=== PATIENT | male | born 1965 | race African-American/Black ===

== ENCOUNTER 2017-06-01 08:56 | Inpatient (IN) | payer MEDICAID ==
--- NOTE | 2017-06-01 09:40 | ED ---
Lower Extremity - HPI Summary HPI Summary: 51-year-old male presents with left leg swelling and redness for the past day. He has history of a cyst on his but that has been on three course of antibiotics which has not helped. No one has attempted to drain the abscess. Caregiver denies any fevers. His most recent antibiotic is doxycycline which stopped on may 27. He was seen in his primary today who noticed that his left leg which has some edema to the baseline was much harder and warm. Primary is concerned that he has a cellulitis. Has history of traumatic brain injury and difficulty finding words at baseline. Caregiver notes that he is much weaker today. He denies any chest pain or shortness of breath. He states his pain is greatest on the cyst on the left side of his buttock. - History of Current Complaint Chief Complaint: EDGeneral Stated Complaint: SWOLLEN LEG Time Seen by Provider: 06/01/17 09:16 Pain Intensity: 0 - Allergies/Home Medications Allergies/Adverse Reactions: Allergies Allergy/AdvReac Type Severity Reaction Status Date / Time Penicillins Allergy Severe Hives Verified 06/01/17 10:35 Carbapenems Allergy Intermediate Unknown Verified 06/01/17 10:35 Reaction Details Cephalosporins Allergy Intermediate Unknown Verified 06/01/17 10:35 Reaction Details latex Allergy Intermediate Unknown Verified 06/01/17 10:35 Reaction Details Home Medications: Home Medications Acetaminophen TAB* [Tylenol TAB*] 650 mg PO Q4H PRN 06/01/17 [History Confirmed 06/01/17] Docusate CAP* [Colace Cap*] 250 - 300 mg PO BEDTIME 06/01/17 [History Confirmed 06/01/17] Gabapentin CAP(*) [Neurontin 300 CAP(*)] 600 mg PO QPM 06/01/17 [History Confirmed 06/01/17] Hydrochlorothiazide TAB* [Hydrodiuril TAB*] 25 mg PO QAM 06/01/17 [History Confirmed 06/01/17] Latanoprost 0.005%* [Xalatan 0.005%*] 1 drop BOTH EYES QPM 06/01/17 [History Confirmed 06/01/17] Magnesium Hydroxide LIQ* [Milk of Magnesia LIQ*] 30 ml PO DAILY PRN 06/01/17 [ History Confirmed 06/01/17] Neomycin/Polym/Bacit TOP OINT* [Neosporin TOP OINT TUBE*] 1 applic TOPICAL .THREE TIMES A WEEK PRN 06/01/17 [History Confirmed 06/01/17] Nitrofurantoin Macrocrystals* [Macrodantin*] 100 mg PO DAILY 06/01/17 [History Confirmed 06/01/17] Nortriptyline CAP* [Pamelor CAP*] 20 mg PO BEDTIME 06/01/17 [History Confirmed 06/01/17] Omeprazole CAP* [Prilosec CAP* 20 MG] 20 mg PO DAILY 06/01/17 [History Confirmed 06/01/17] Topiramate TAB(*) [Topamax 100 mg tab] 100 mg PO BEDTIME 06/01/17 [History Confirmed 06/01/17] Topiramate TAB(*) [Topamax 25 MG tab] 50 mg PO QAM 06/01/17 [History Confirmed 06/01/17] guaiFENesin/CODIEN 100MG-10MG* [Robitussin AC 100Mg-10Mg*] 10 ml PO Q4H PRN [History Confirmed 06/01/17] PMH/Surg Hx/FS Hx/Imm Hx Endocrine/Hematology History: Denies: Hx Diabetes Cardiovascular History: Reports: Hx Hypercholesterolemia, Hx Hypertension - ON DAILY MEDS Denies: Hx Pacemaker/ICD Comment Only: Other Cardiovascular Problems/Disorders - RIGHT SIDE ARM PARALIZED, RT LEG REMOVED GI History: Reports: Other GI Disorders - chronic constipation History: Denies: Hx Renal Disease Musculoskeletal History: Reports: Other Musculoskeletal History - right above knee amputation Sensory History: Reports: Hx Contacts or Glasses, Hx Hearing Aid - GLASSES Opthamlomology History: Reports: Hx Contacts or Glasses Neurological History: Reports: Hx Seizures - SINCE 2008, ON DAILY MEDS, Hx Transient Ischemic Attacks (TIA) - this admission, Other Neuro Impairments/ Disorders - CVA 5 years ago Psychiatric History: Denies: Hx Panic Disorder - Surgical History Surgery Procedure, Year, and Place: R leg amputation 2008prior to that R foot partial amputation/ 2004 [facility]. 2009 IVC FILTER.PT STARTED CRYING, REALLY AGITATED AND THEN CATATONIC-WE CALLED [facility] TO EVALUATE AND SENT BACK TO FLOOR. QWEENS Hx Anesthesia Reactions: No Infectious Disease History: No Infectious Disease History: Denies: Traveled Outside the [place] in Last 30 Days - Family History Known Family History: Positive: Unknown - Social History Alcohol Use: None Substance Use Type: Reports: None Smoking Status (MU): Former Smoker Type: Cigarettes Amount Used/How Often: LESS THEN 1 PPD 25 YRS Have You Smoked in the Last Year: No Review of Systems Negative: Fever Negative: Chest Pain Negative: Shortness Of Breath Positive: Edema - left leg Positive: Rash All Other Systems Reviewed And Are Negative: Yes Physical Exam Triage Information Reviewed: Yes Vital Signs On Initial Exam: Initial Vitals Temp Pulse Resp BP Pulse Ox 97.0 F 68 18 113/72 99 06/01/17 08:59 06/01/17 08:59 06/01/17 08:59 06/01/17 08:59 06/01/17 08:59 Vital Signs Reviewed: Yes Appearance: Positive: Well-Appearing Skin: Positive: Warm, Dry Head/Face: Positive: Normal Head/Face Inspection Eyes: Positive: Normal, Conjunctiva Clear Respiratory/Lung Sounds: Positive: Clear to Auscultation, Breath Sounds Present Cardiovascular: Positive: Normal, RRR Abdomen Description: Positive: Nontender, Soft, Other: - locaulated abscess on tailbone Bowel Sounds: Positive: Present Musculoskeletal: Positive: Edema Left - hard to touch, Other - warm and tender to left lower leg, Neurological: Positive: Normal Diagnostics - Vital Signs Vital Signs Temp Pulse Resp BP Pulse Ox 06/01/17 08:59 97.0 F 68 18 113/72 99 - Laboratory Result Diagrams: 06/01/17 09:53 06/01/17 09:53 Lab Statement: Any lab studies that have been ordered have been reviewed, and results considered in the medical decision making process. - CT abd CT Interpretation: Positive (See Comments) - IMPRESSION: 1. Extending caudal and posterior from the RIGHT ischial tuberosity to the skin there is a narrow tract of increased density/soft tissue edema within the subcutaneous tissue plane . No loculated abscess collection, subcutaneous emphysema, or conspicuous foreign body evident. No suspicious osseous change at the RIGHT greater tuberosity to strongly favor osteomyelitis. 2. The visualized LEFT thigh is larger than the RIGHT. Increased size of the LEFT external iliac, common femoral , great saphenous, and femoral vein proximal segment veins compared with the contralateral side. LEFT lower extremity ultrasound of the same date negative for DVT. CT Interpretation Completed By: Radiologist - Ultrasound No standard instances Ultrasound Interpretation: No Acute Changes Ultrasound Interpretation Completed By: Radiologist Lower Extremity Course/Dx - Course Course Of Treatment: 51-year-old male presents with left leg swelling and redness for the past day. He has history of a cyst on his but that has been on three course of antibiotics which has not helped. No one has attempted to drain the abscess. Caregiver denies any fevers. His most recent antibiotic is doxycycline which stopped on may 27. He was seen in his primary today who noticed that his left leg which has some edema to the baseline was much harder) and warm. Primary is concerned that he has a cellulitis. Has history of traumatic brain injury and difficulty finding words at baseline. Caregiver notes that he is much weaker today. He denies any chest pain or shortness of breath. He states his pain is greatest on the cyst on the left side of his buttock. on exam has edema that is hard and warm to touch on left calf with wheeping wounds. has induration to right tuberosity. will get CT due to see extend of abscess on tailbone. wbc normal. u/s no dvt. crp 6. bnp normal. as vitals and labs stable and has not been on antibiotics in 5 days will have start clindamycin for cellulitis. gave first dose IV here. CT shows narrow tract from ischial tuberosity to skin with no abscess. discussed case with dr vernon who examined patient and said get MR to make sure not osteomyelitis and blood pressure is low so said discuss with hospiatalists. signed out to emma for disposition after hospitalist consult and MRI. - Diagnoses Differential Diagnosis/HQI/PQRI: Positive: Cellulitis, DVT, Other - abscess Provider Diagnoses: Cellulitis of left lower leg, edema of right buttock Discharge - Sign-Out/Discharge Documenting (check all that apply): Sign-Out Patient Signing out patient TO: Emma Merritt - Discharge Plan Referrals: Bobo Hathaway MD [Primary Care Provider] -
[2017-06-01] MEDS ORDERED: Clindamycin 600 MG IVPREMIX(* 600 MG/50 ML SDV IV ONE (09:46)
[2017-06-01 10:20] LABS: ABS Basophils 0.1 10^3/ul (0-0.2); ABS Eosinophils 0.2 10^3/ul (0-0.6); ABS Lymphocytes 2.3 10^3/ul (1.0-4.8); ABS Monocytes 0.4 10^3/ul (0-0.8); ABS Neutrophils 3.5 10^3/ul (1.5-7.7); ABS Nucleated RBC 0 10^3/ul; Eosinophil % 3.1 % (0-6); Hematocrit 41 % (42-52); Hemoglobin 13.6 g/dl (14.0-18.0); Lymphocyte % 35.8 % (25-47); Mean Corpuscular HGB Conc 33 g/dl (31-36); Mean Corpuscular Hemoglobin 29 pg (27-31); Mean Corpuscular Volume 86 fL (80-94); Mean Platelet Volume 8 um3 (7.4-10.4); Nucleated Red Blood Cells % 0.1; Platelet Count 329 10^3/ul (150-450); Red Blood Count 4.73 10^6/ul (4.0-5.4); Red Cell Distribution Width 15 % (10.5-15); White Blood Count 6.6 10^3/ul (3.5-10.8)
--- NOTE | 2017-06-01 10:27 | RAD ---
INDICATION: Left leg swelling. COMPARISON: There are no prior studies available for comparison. TECHNIQUE: Multiple real-time, color flow and Doppler tracings of the left lower extremity were obtained. The examination is limited. The proximal thigh veins are difficult to see on grayscale imaging. FINDINGS: The common femoral, femoral, profunda femoral and popliteal veins all demonstrate normal augmentation with compression and phasic response with respiration. The posterior tibial and peroneal veins demonstrate normal compressibility and augmentation with compression. IMPRESSION: LIMITED STUDY, NO EVIDENCE FOR DEEP VENOUS THROMBOSIS.
[2017-06-01 10:35] LABS: Urine Appearance Clear; Urine Blood Negative (Negative); Urine Color Yellow; Urine Ketones Negative (Negative); Urine Protein Negative (Negative); Urine Specific Gravity 1.019 (1.010-1.030); Urine Urobilinogen Positive (Negative)
[2017-06-01 10:38] LABS: EGFR Non-African American 64.6 (>60)
[2017-06-01] MEDS ORDERED: Iohexol 300* (CONTRAST) 10 ML SDV IV ONE (10:48)
[2017-06-01] MEDS: NS 0.9% 1000 ML* 2,000 ML IV ONE ×2 (10:58→13:27)
--- NOTE | 2017-06-01 12:06 | RAD ---
Indication: Tailbone abscess. Cyst on buttocks. LEFT lower extremity swelling and warm to touch. Comparison: LEFT lower extremity venous ultrasound of the same date. May 03, 2012 CT. Technique: CT pelvis and proximal femurs with 100 mL Omnipaque 300 IV contrast. Multiplanar reformation. Report: Extending caudal and posterior from the RIGHT ischial tuberosity to the skin there is a narrow tract of increased density/soft tissue edema within the subcutaneous tissue plane . No loculated abscess collection, subcutaneous emphysema, or conspicuous foreign body evident. No suspicious osseous change at the RIGHT greater tuberosity to strongly favor osteomyelitis. No additional soft tissue inflammatory change evident. No suspicious finding of the visualized pelvic viscera. Mild diverticulosis at the descending and proximal sigmoid colon without findings of diverticulitis. Negative for ascites or free air within the [id number]. Negative for significant hernias. Negative for distal ureteral dilatation. Unremarkable partially distended urinary bladder. Negative for lymphadenopathy within the [id number]. The visualized LEFT thigh is larger than the RIGHT. Increased size of the LEFT external iliac, common femoral, great saphenous, and femoral proximal segment veins compared with the contralateral side. Chronic 2.9 cm transverse maximum dimension pedunculated benign morphology osteochondroma projects RIGHT posterior lateral from the RIGHT iliac wing without change compared with a CT from May 03, 2012 without concern. No suspicious focal osseous lesions or fracture. 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 IMPRESSION: 1. Extending caudal and posterior from the RIGHT ischial tuberosity to the skin there is a narrow tract of increased density/soft tissue edema within the subcutaneous tissue plane . No loculated abscess collection, subcutaneous emphysema, or conspicuous foreign body evident. No suspicious osseous change at the RIGHT greater tuberosity to strongly favor osteomyelitis. 2. The visualized LEFT thigh is larger than the RIGHT. Increased size of the LEFT external iliac, common femoral, great saphenous, and femoral vein proximal segment veins compared with the contralateral side. LEFT lower extremity ultrasound of the same date negative for DVT.
[2017-06-01] MEDS ORDERED: Magnesium Hydroxide LIQ* 30 ML UDC PO PRN ×2 (13:30→13:33)
[2017-06-01] MEDS ORDERED: Ondansetron INJ* 2 MG/ML VIAL IV PRN (13:30)
[2017-06-01] MEDS ORDERED: Acetaminophen TAB* 325 MG PO PRN (13:30)
[2017-06-01] MEDS ORDERED: guaiFENesin/CODIEN 100MG-10MG* 5 ML UDC PO PRN (13:33)
[2017-06-01] MEDS ORDERED: KCL 20 MEQ/100 ML IVPREMIX* 20 MEQ/100 ML BAG IV SCH (14:00)
[2017-06-01] MEDS ORDERED: Potassium Chloride IV* 40 MEQ in NS 0.9% 250 ML* 250 ML IVPB ONE (14:30)
--- NOTE | 2017-06-01 15:30 | ED ---
Progress - Progress Note Progress Note: Condition: stable Dispo: admit Course/Dx - Course Course Of Treatment: 51-year-old male presents with left leg swelling and redness for the past day. He has history of a cyst on his but that has been on three course of antibiotics which has not helped. No one has attempted to drain the abscess. Caregiver denies any fevers. His most recent antibiotic is doxycycline which stopped on may 27. He was seen in his primary today who noticed that his left leg which has some edema to the baseline was much harder) and warm. Primary is concerned that he has a cellulitis. Has history of traumatic brain injury and difficulty finding words at baseline. Caregiver notes that he is much weaker today. He denies any chest pain or shortness of breath. He states his pain is greatest on the cyst on the left side of his buttock. on exam has edema that is hard and warm to touch on left calf with wheeping wounds. has induration to right tuberosity. will get CT due to see extend of abscess on tailbone. wbc normal. u/s no dvt. crp 6. bnp normal. as vitals and labs stable and has not been on antibiotics in 5 days will have start clindamycin for cellulitis. gave first dose IV here. CT shows narrow tract from ischial tuberosity to skin with no abscess. discussed case with dr vernon who examined patient and said get MR to make sure not osteomyelitis and blood pressure is low so said discuss with hospiatalists. signed out to paulina for disposition after hospitalist consult and MRI. - Diagnoses Provider Diagnoses: Cellulitis of left lower leg, edema of right buttock Discharge - Sign-Out/Discharge Documenting (check all that apply): Receiving Sign-Out Receiving patient FROM: Angelica Smith - Discharge Plan Condition: Stable Disposition: ADMITTED TO [facility] - Billing Disposition and Condition Condition: STABLE Disposition: [facility] [place]
[2017-06-01] MEDS: Gabapentin CAP(*) 300 MG PO SCH (18:33)
[2017-06-01] MEDS: oxyCODONE/Acetamin 5/325 MG* TAB PO PRN ×2 (18:33→22:25)
[2017-06-01] MEDS: Latanoprost 0.005%* 2.5 ml BTL BOTH EYES SCH (18:37)
--- NOTE | 2017-06-01 20:47 | RAD ---
HISTORY: Tailbone abscess, rule out osteomyelitis COMPARISONS: CT of the pelvis dated June 01, 2017 TECHNIQUE: The following sequences were obtained of the pelvis: Coronal T1-weighted images, coronal T2-weighted images show saturation, coronal STIR images, axial T1-weighted images, axial T2-weighted images with fat saturation, axial STIR images. FINDINGS: Evaluation is limited by the lack of intravenous contrast BONES: There is elevated T2/STIR signal within the distal coccyx. Again noted is a small osteochondroma of the right iliac wing. The bones are otherwise normal signal intensity. SOFT TISSUES: There is elevated T2/STIR signal of the soft tissues superficial to the distal coccyx, without appreciable loculated fluid collection. This extends into the gluteus musculature bilaterally. PELVIC ORGANS: Grossly normal for technique. IMPRESSION: IN THE AREA OF INFLAMMATORY CHANGE ALONG THE COCCYX NOTED ON THE PREVIOUS CT EXAMINATION, THERE IS EDEMA WITHIN THE DISTAL COCCYX AND THE ADJACENT SOFT TISSUES. THERE IS NO APPRECIABLE LOCULATED FLUID COLLECTION TO SUGGEST ABSCESS. GIVEN THE CLINICAL HISTORY, THE PRESENCE OF BONE AND SOFT TISSUE EDEMA SUGGESTS OSTEOMYELITIS WITH ASSOCIATED SOFT TISSUE CELLULITIS
[2017-06-01] MEDS ORDERED: Metoprolol Tartrate TAB* 25 MG PO SCH (21:00)
[2017-06-01] MEDS: Citalopram TAB* 20 MG PO SCH (21:41)
[2017-06-01] MEDS: Metoprolol Tartrate TAB* 25 MG PO SCH (21:41)
[2017-06-01] MEDS: Docusate CAP* 100 MG PO SCH (21:41)
[2017-06-01] MEDS: Baclofen TAB* 10 MG PO SCH (21:42)
[2017-06-01] MEDS: Topiramate TAB(*) 100 MG PO SCH (21:42)
[2017-06-01] MEDS: Senna TAB PO SCH (21:42)
[2017-06-01] MEDS: Nortriptyline CAP* 10 MG PO SCH (21:43)
--- NOTE | 2017-06-02 01:08 | HP ---
CC: Dr. Hathaway; Dr. Hollis in [facility] [place] * HISTORY AND PHYSICAL: DATE OF ADMISSION: 06/01/17 PRIMARY CARE PROVIDER: Dr. Hathaway. CHIEF COMPLAINT: Right buttock cellulitis. HISTORY OF PRESENT ILLNESS: Al Cali is a 51-year-old male with history of traumatic brain injury who is basically nonverbal apart from minimal communication. The patient attends traumatic brain injury services in [place] and has a clinical services consultant as well as aide who takes care of him 40 hours a week. He also goes to daily adult care in the morning until 2 p.m. He stays alone at night. He uses a wheelchair and motorized wheelchair and he transfers independently. For the past month, he has been taking 3 antibiotics for right buttock abscess/cellulitis. I noted 2/3 of these antibiotics were clindamycin and most recently doxycycline that he took for 10 days. He stops taking it 4 days ago and he went to a nurse practitioner for reevaluation. At that point, he was directed to the ED for evaluation. The patient had been afebrile. Once his blood pressures in the 70s, but I believe it was not valid BP measurement. Apparently, his left leg had been swollen for a while, but has improved dramatically as per the patient's clinical services consultant who is by the bedside since the patient had been lying in bed. The patient is status post right AKA since 2008. CT of the pelvis shows possibility of an area of tracking into the pelvis. There is also a chronic 2.9 cm transverse maximal dimension pedunculated benign morphology osteochondroma in the right posterior lateral iliac vein what is chronic. The patient is going to be placed on overnight observation and an MRI of the pelvis is going to be obtained by us as ordered by the ER provider. I will ask Surgery to consult. PAST MEDICAL HISTORY: Please note that past medical history was obtained from patient's medical record since the patient is basically nonverbal. 1. Traumatic brain injury. 2. 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 The patient is basically nonverbal. He has right spastic hemiparesis and right homonymous hemianopsia. 3. History of status post right AKA. 4. History of peripheral vascular disease. 5. History of pulmonary embolism. 6. History of migraine headaches. 7. History of partial seizure evolving to secondary generalized seizure under the care of Dr. Hollis. 8. History of hypertension. 9. Dyslipidemia. 10. Gastroesophageal reflux disease. 11. Glaucoma. CURRENT MEDICATIONS: 1. Neosporin cream topically 3 times a week p.r.n. 2. Guaifenesin with codeine on a p.r.n. basis. 3. Hydrochlorothiazide 25 mg daily. 4. Nitrofurantoin 100 mg daily. 5. Xalatan eyedrops 0.005% one drop both eyes q. p.m. 6. Acetaminophen on a p.r.n. basis. 7. Topamax 50 mg q.a.m. and 100 mg at bedtime. 8. Nortriptyline 20 mg daily. 9. Milk of magnesia 30 mL daily p.r.n. 10. Colace 200 mg at bedtime. 11. Omeprazole 25 mg daily. 12. Gabapentin 600 mg q. p.m. and 300 mg in a.m. 13. Metoprolol tartrate 25 mg b.i.d. 14. Celexa 20 mg at bedtime. 15. Baclofen 10 mg b.i.d. 16. Lipitor 80 mg daily. 17. Aspirin 81 mg daily. ALLERGIES: Include PENICILLINS, CARBAPENEM, CEPHALOSPORINS, and LATEX. FAMILY HISTORY: Positive for mother with history of heart disease and father with rheumatoid arthritis. SOCIAL HISTORY: The patient is unable to provide any history in regards to smoking, alcohol use or drug use, but as per his clinical services consultant, he has not done substances at least since 2008. He attends traumatic brain injury program and his surrogate is his mother. REVIEW OF SYSTEMS: As per the patient's clinical services consultant, the patient had been complaining of right buttock pain. The patient himself currently denies any pain. All the remaining 12 systems were unobtainable from the patient. PHYSICAL EXAMINATION GENERAL: The patient is a very pleasant 51-year-old male, who is in no acute distress. The patient is alert. He is able to communicate somewhat, usually he shows what he needs in gestures. He is able to say yes and "pee." VITAL SIGNS: Blood pressure of 98/51, heart rate of 74 and regular, respiratory rate is 16, oxygen saturation 99% on room air, temperature of 98.0. HEENT: Head: Atraumatic, normocephalic. Eyes: Pupils are equal and reactive to light and accommodation. Oropharynx clear. Mucosa moist. NECK: Supple. No JVD. No bruits bilaterally. RESPIRATORY: Clear to auscultation bilaterally. CARDIOVASCULAR: Regular rate and rhythm. No murmur. ABDOMEN: Soft and nontender. Bowel sounds are present in all 4 quadrants. EXTREMITIES: There is +1 pitting pedal edema overlying the entire left leg. Right leg is status post AKA. There is no clubbing or cyanosis and pulses are + 2 bilaterally. NEURO EVALUATION: The patient has right-sided hemiparesis. His right side of his face is with slight facial droop. The patient is basically nonverbal. He is able to follow commands appropriately. SKIN: On evaluation of the patient's skin, no ecchymotic areas or rashes noted. Specifically on evaluation of the right buttock, there is minimal subcutaneous density present over the right ischial tuberosity, mildly tender to palpation. The skin is intact. There is no evidence of cellulitis. DIAGNOSTIC STUDIES/LAB DATA: White blood cell count of 6.6, hemoglobin of 13.6 , hematocrit of 41, ESR pending, platelets of 329. Sodium was 136, potassium 3.4, chloride 104, carbon dioxide 23, BUN 22, creatinine 1.18. Liver function test unremarkable. C-reactive protein, high sensitivity is 6.9. Urinalysis, positive for trace urobilinogen. Venous Doppler study of the left lower extremity showed no evidence of DVT. CT of the pelvis showed, impression: "Extending caudal, posterior from the right ischial tuberosity to the skin. There is a narrow tract of increased density and soft tissue edema with the subcutaneous tissue plane. No loculated abscess collections or subcutaneous emphysema or conspicuous foreign body evident. No suspicious osseous change at the right greater tuberosity to strongly favor osteomyelitis. The visualized left thigh is larger than the right, increased in size left external iliac, common femoral, greater saphenous and femoral vein, proximal segment veins compared with the collateral side left lower extremity, all this done on the same date, negative for DVT." Furthermore in the body of the report it says that the visualized chronic 2.9 cm transverse maximum dimension pedunculated benign morphology osteochondroma projects right posterior lateral from the right iliac one without change compared with the CT from April 2012 and without concern. No suspicious focal osseous lesions or fracture. ASSESSMENT AND PLAN: 1. Right buttock pain. The patient has some inflammatory changes in the area, possibly after treatment of right buttock abscess. At this point, his C- reactive protein is unremarkable. The patient has no leukocytosis. He had been afebrile. He does have mild tenderness in the area. I suspect that he may have an inflammatory change from this that he has chronic osteochondroma in the area and he had been sitting and spending most of the time in his wheelchair instead of going to bed for the night. I will ask Surgery to evaluate the patient, but I do not believe that there is an ongoing infection. At this point , I do not see a reason for the patient to be started on antibiotics. The provider from the emergency department ordered an MRI, which at this point is pending. The patient also received a dose of clindamycin. 2. In regards to the patient's history of partial seizures, the patient is going to be continued on his gabapentin and Topamax as outpatient. 3. For DVT prophylaxis in a patient with history of pulmonary embolism, the patient is going to be placed on heparin subcutaneously. 4. For hypertension, his metoprolol is going to be continued with hold parameters. 5. The patient's left leg edema apparently is much improved since the patient had been lying in bed. I believe is venous stasis. His Dopplers were negative for DVT. I will continue KENA stockings. 6. The patient's code status is full and his surrogate is his mother. TIME SPENT: Approximately 65 minutes was spent on admission of this patient, more than half that time was spent in the patient's room [id number] with the patient during the evaluation. [id number]/[facility] #: [id number] LAITH
[2017-06-02] MEDS: oxyCODONE/Acetamin 5/325 MG* TAB PO PRN ×3 (02:45→18:05)
[2017-06-02 06:01] LABS: ABS Basophils 0 10^3/ul (0-0.2); ABS Eosinophils 0.1 10^3/ul (0-0.6); ABS Lymphocytes 2.1 10^3/ul (1.0-4.8); ABS Monocytes 0.5 10^3/ul (0-0.8); ABS Neutrophils 4.3 10^3/ul (1.5-7.7); ABS Nucleated RBC 0 10^3/ul; Eosinophil % 1.8 % (0-6); Hematocrit 36 % (42-52); Hemoglobin 12.1 g/dl (14.0-18.0); Mean Corpuscular HGB Conc 33 g/dl (31-36); Mean Corpuscular Hemoglobin 29 pg (27-31); Mean Corpuscular Volume 86 fL (80-94); Mean Platelet Volume 8.1 um3 (7.4-10.4); Nucleated Red Blood Cells % 0.1; Platelet Count 293 10^3/ul (150-450); Red Blood Count 4.22 10^6/ul (4.0-5.4); Red Cell Distribution Width 15 % (10.5-15)
[2017-06-02 06:16] LABS: EGFR Non-African American 58.8 (>60)
[2017-06-02] MEDS ORDERED: Magnesium Hydroxide LIQ* 30 ML UDC PO ONE (07:59)
--- NOTE | 2017-06-02 08:17 | PN ---
Subjective Date of Service: 06/02/17 Interval History: Pt had been c/o abd pain all night-which is new since admission. No BM for over 1 day, difficult to get relevant history from pt though. Objective Active Medications: Acetaminophen (Tylenol Tab*) 650 mg PO Q4H PRN PRN Reason: FEVER/PAIN Last Admin: 06/01/17 23:50 Dose: 650 mg Aspirin (Aspirin Ec Low Dose*) 81 mg PO DAILY [facility] Atorvastatin Calcium (Lipitor*) 80 mg PO DAILY [facility] Baclofen (Lioresal Tab*) 10 mg PO BID [facility] Last Admin: 06/01/17 21:42 Dose: 10 mg Citalopram Hydrobromide (Celexa Tab*) 20 mg PO BEDTIME [facility] Last Admin: 06/01/17 21:41 Dose: 20 mg Docusate Sodium (Colace Cap*) 200 mg PO BEDTIME [facility] Last Admin: 06/01/17 21:41 Dose: 200 mg Gabapentin (Neurontin Cap(*)) 600 mg PO QPM [facility] Last Admin: 06/01/17 18:33 Dose: 600 mg Gabapentin (Neurontin Cap(*)) 300 mg PO QAM [facility] Guaifenesin/Codeine Phosphate (Robitussin Ac 100mg-10mg*) 10 ml PO Q4H PRN PRN Reason: COUGH Clindamycin HCl/Dextrose (Cleocin 600 Mg Ivpremix(*) Sdv) 600 mg in 50 mls @ 100 mls/hr IV Q8H [facility] Latanoprost (Xalatan 0.005%*) 1 drop BOTH EYES QPM [facility] Last Admin: 06/01/17 18:37 Dose: 1 drop Magnesium Hydroxide (Milk Of Magnesia Liq*) 30 ml PO Q4H PRN PRN Reason: CONSTIPATION Magnesium Hydroxide (Milk Of Magnesia Liq*) 30 ml PO DAILY PRN PRN Reason: CONSTIPATION Magnesium Hydroxide (Milk Of Magnesia Liq*) 30 ml PO ONCE ONE Stop: 06/02/17 08:00 Metoprolol Tartrate (Lopressor Tab*) 25 mg PO BID [facility] Last Admin: 06/01/17 21:41 Dose: 25 mg Nitrofurantoin Macrocrystals (Macrodantin*) 100 mg PO DAILY [facility] Nortriptyline HCl (Pamelor Cap*) 20 mg PO BEDTIME [facility] Last Admin: 06/01/17 21:43 Dose: 20 mg Omeprazole (Prilosec Cap*) 20 mg PO DAILY@0730 [facility] Ondansetron HCl (Zofran Inj*) 4 mg IV Q4H PRN PRN Reason: NAUSEA/VOMITING Last Admin: 06/02/17 03:00 Dose: 4 mg Oxycodone/Acetaminophen (Percocet 5/325 Tab*) 1 tab PO Q4H PRN PRN Reason: Pain Last Admin: 06/02/17 02:45 Dose: 1 tab Polyethylene Glycol/Electrolytes (Miralax*) 17 gm PO 0800,2100 [facility] Senna (Senokot Tab*) 1 tab PO BID [facility] Last Admin: 06/01/17 21:42 Dose: 1 tab Topiramate (Topamax(*)) 100 mg PO BEDTIME [facility] Last Admin: 06/01/17 21:42 Dose: 100 mg Topiramate (Topamax(*)) 50 mg PO QAM [facility] Vital Signs - 8 hr 06/02/17 06/02/17 06/02/17 01:33 02:45 03:01 Temperature 97.3 F Pulse Rate 67 Respiratory 17 22 18 Rate Blood Pressure 114/57 (mmHg) O2 Sat by Pulse 97 Oximetry 06/02/17 04:23 Temperature Pulse Rate Respiratory 16 Rate Blood Pressure (mmHg) O2 Sat by Pulse Oximetry Oxygen Devices in Use Now: None Appearance: 51 yo M in NAD, nonverbal, alert, able to follow commands Eyes: No Scleral Icterus, PERRLA Ears/Nose/Mouth/Throat: NL Teeth, Lips, Gums, Mucous Membranes Moist Neck: NL Appearance and Movements; NL JVP, Trachea Midline Respiratory: Symmetrical Chest Expansion and Respiratory Effort, Clear to Auscultation Cardiovascular: NL Sounds; No Murmurs; No JVD, RRR Abdominal: - - distended, tympanic to percussion, tender in epigastrium and mid diffuse tenderness, no rebound, no guarding, BS+ Lymphatic: No Cervical Adenopathy Extremities: No Clubbing, Cyanosis, - - left leg edema +1 Skin: - - palpable soft tissue induration in R buttock at 3 cm , tender to palpation, skin intact Neurological: - - nonverbal, R spastic hemiparesis at baseline Result Diagrams: 06/02/17 05:32 06/02/17 05:32 Assess/Plan/Problems-Billing Assessment: 51 yo M with h/o CVA's, TBI, R hemiparesis, seizure disorder, global aphasia presents for R buttock pain and h/o buttock cellulitis treated with 3 antibiotics in the past 3 months - Patient Problems (1) Acute buttock pain Comment: MRI shows possible osteomyelitis. Pt received Clindamycin in ED and it willl be restarted this aM. He had been afebrile with CRP of 8 and ESR of 27 which makes likelihood of severe infection rather low. Unfortunately blood cx were not obtained in ED and are now pending. Will consult ID (2) Abdominal pain Comment: suspect obstipation, laxatives provided, will cont to eval (3) Seizure disorder Comment: cont topamax and Neurontin (4) Elevated serum creatinine Comment: creat in the past up to 1.4, unknown baseline today creat elevated from prior, will start gentle IVF (5) DVT prophylaxis Comment: HSQ Status and Disposition: OBV will be changed to inpatient due to ongoing eval for osteo and abd pain
[2017-06-02] MEDS: Polyethylene Glycol 3350* 17 GM PACKET PO SCH ×2 (08:45→20:22)
[2017-06-02] MEDS: Atorvastatin* 80 MG TAB PO SCH (08:45)
[2017-06-02] MEDS: Senna TAB PO SCH ×2 (08:46→20:22)
[2017-06-02] MEDS: Metoprolol Tartrate TAB* 25 MG PO SCH ×2 (08:46→20:22)
[2017-06-02] MEDS: Aspirin EC Low Dose* 81 MG TAB.EC PO SCH (08:46)
[2017-06-02] MEDS: Baclofen TAB* 10 MG PO SCH ×2 (08:46→20:21)
[2017-06-02] MEDS: Gabapentin CAP(*) 300 MG PO SCH ×2 (08:46→18:03)
[2017-06-02] MEDS: Topiramate TAB(*) 25 MG PO SCH (08:50)
[2017-06-02] MEDS: Omeprazole CAP* 20 MG PO SCH (08:50)
[2017-06-02] MEDS ORDERED: Clindamycin 600 MG IVPREMIX(* 600 MG/50 ML SDV IV SCH (09:00)
[2017-06-02] MEDS: NS 0.9% 1000 ML* 1,000 ML IV SCH (11:09)
[2017-06-02] MEDS: Clindamycin 600 MG IVPREMIX(* 600 MG/50 ML SDV IV SCH ×2 (11:10→18:04)
[2017-06-02] MEDS: Nitrofurantoin Macrocrystals* 100 MG CAP PO SCH (11:10)
[2017-06-02] MEDS: Heparin VIAL(*) 5000 UNITS/ML VIAL (FIVE THOUSAND) SUBCUT SCH ×2 (15:21→20:25)
--- NOTE | 2017-06-02 16:53 | CONS ---
CONSULTATION REPORT: DATE OF CONSULT: 06/02/17 REQUESTING PHYSICIAN: Dr. Rosenberg. CONSULTING SERVICE: Infectious Disease. REASON FOR CONSULTATION: Question of osteomyelitis. IMPRESSION: 1. Recent history of right buttock cellulitis without wound, resolved with oral antibiotics, but had persistent buttock pain. A CT scan showed a sinus tract extending from the soft tissues down to the right ischial tuberosity. MRI showed increased T2 intensity at the right ischial tuberosity with surrounding soft tissue edema; taken together, this is most consistent with a partially treated right buttock cellulitis, myositis and acute osteomyelitis, non-hematogenous. I suspect he had a soft tissue infection, which extended down to the ischium. The soft tissue component had been improving with treatment with agents covering gram positives as an outpatient and given there is no wound present, I think gram negatives and anaerobes less likely as well. 2. History of traumatic brain injury and cerebrovascular accident with aphasia and right hemiparesis. 3. 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 4. Peripheral vascular disease. RECOMMENDATION: Doxycycline 100 mg by mouth twice a day for 6 weeks with a CBC , CMP, and CRP in 2 weeks, follow up with me as an outpatient. HISTORY OF PRESENT ILLNESS: This is a 51-year-old male with traumatic brain injury, history of stroke, he is aphasic, cannot provide medical history, which is obtained from review of the medical records and discussion with Dr. Rosenberg. As an outpatient, he has had 2 to 3 weeks of oral antibiotics for right buttock pain and edema and warmth. The edema and warmth is much improved with combination of clindamycin and doxycycline and now has just buttock pain, which is left and unable to transfer as he usually does. In the ER, he had a CT scan with results as above and followup MRI as described above. His CRP was 7. He was started on IV clindamycin. He has had no fever here. He endorses ongoing right buttock pain, cannot provide any other details. PAST MEDICAL HISTORY: 1. Traumatic brain injury. 2. CVA 2008 with global aphasia and right hemiparesis. 3. Status post right [id number] amputation due to gangrene. 4. Peripheral vascular disease. 5. Pulmonary embolism with a history of Natalie filter. 6. Migraine. 7. Partial seizure. 8. Hypertension. 9. Hyperlipidemia. 10. Gastroesophageal reflux disease. 11. Glaucoma. MEDICATIONS: 1. Tylenol. 2. Aspirin. 3. Lipitor. 4. Baclofen. 5. Celexa. 6. Clindamycin 600 mg IV every 8 hours. 7. Gabapentin. 8. Guaifenesin. 9. Heparin subcutaneous injection. 10. Magnesium hydroxide. 11. Metoprolol. 12. Nortriptyline. 13. Oxycodone. 14. Senna. 15. Topamax. ALLERGIES: PENICILLIN, CARBAPENEM, CEPHALOSPORINS, unknown reaction. FAMILY HISTORY: His mother had heart disease. Father had rheumatoid arthritis. SOCIAL HISTORY: He lives semi-independently. He is originally from [place]. REVIEW OF SYSTEMS: Endorses right buttock pain, but denies any other symptoms to a 14-point review of symptoms. PHYSICAL EXAM: Vital Signs: Temperature 36, heart rate 70, respiratory rate 18 , blood pressure 114/57, oxygen saturation 97% on room air. General: He is awake, not in distress. Neurologic: He answers "yes" appropriately to most questions. He follows commands. HEENT: There is no conjunctival hemorrhage. Oropharynx: Without lesions. Neck: Neck is supple without mass. There is no cervical, supraclavicular, inguinal, axillary or epitrochlear lymphadenopathy. Heart is regular rate and rhythm without murmurs, rubs or gallops. Lungs are clear to auscultation bilaterally. Abdomen is soft, mildly distended. There is bowel sounds present. There is no rebound. Skin: There are no rashes or splinter hemorrhages. Musculoskeletal: On the right buttock, there is tenderness over the ischial tuberosity. There is no edema, erythema, warmth or ulceration. There is no hip pain with logroll or range of motion. There is a right [id number] amputation, which is healed. DIAGNOSTIC STUDIES/LAB DATA: White blood cell count 7, hemoglobin 12, platelets 293, creatinine is 1.2. CRP is 8. Urinalysis shows urobilinogen otherwise negative. Please see impressions and recommendations outlined above, which I have discussed with Dr. Rosenberg. Thank you for asking me to see Mr. Cali in consultation. [id number]/[facility] #: [id number] [facility]ITAL[facility]rence
[2017-06-02] MEDS: Latanoprost 0.005%* 2.5 ml BTL BOTH EYES SCH (18:04)
[2017-06-02] MEDS: Citalopram TAB* 20 MG PO SCH (20:21)
[2017-06-02] MEDS: Topiramate TAB(*) 100 MG PO SCH (20:22)
[2017-06-02] MEDS: Docusate CAP* 100 MG PO SCH (20:22)
[2017-06-02] MEDS: Nortriptyline CAP* 10 MG PO SCH (20:22)
[2017-06-03] MEDS: NS 0.9% 1000 ML* 1,000 ML IV SCH (02:42)
[2017-06-03] MEDS: Clindamycin 600 MG IVPREMIX(* 600 MG/50 ML SDV IV SCH ×2 (02:44→12:37)
[2017-06-03] MEDS: Heparin VIAL(*) 5000 UNITS/ML VIAL (FIVE THOUSAND) SUBCUT SCH ×2 (06:05→12:43)
[2017-06-03 06:14] LABS: ABS Basophils 0 10^3/ul (0-0.2); ABS Eosinophils 0.2 10^3/ul (0-0.6); ABS Monocytes 0.5 10^3/ul (0-0.8); ABS Nucleated RBC 0 10^3/ul; Eosinophil % 2.8 % (0-6); Hematocrit 36 % (42-52); Hemoglobin 12.1 g/dl (14.0-18.0); Lymphocyte % 29.7 % (25-47); Mean Corpuscular HGB Conc 34 g/dl (31-36); Mean Corpuscular Hemoglobin 29 pg (27-31); Mean Corpuscular Volume 85 fL (80-94); Mean Platelet Volume 8.1 um3 (7.4-10.4); Nucleated Red Blood Cells % 0.1; Platelet Count 285 10^3/ul (150-450); Red Blood Count 4.19 10^6/ul (4.0-5.4); Red Cell Distribution Width 15 % (10.5-15); White Blood Count 6.8 10^3/ul (3.5-10.8)
[2017-06-03 06:33] LABS: EGFR Non-African American 67.2 (>60)
[2017-06-03] MEDS: Polyethylene Glycol 3350* 17 GM PACKET PO SCH (08:31)
[2017-06-03] MEDS: Senna TAB PO SCH (08:31)
[2017-06-03] MEDS: Metoprolol Tartrate TAB* 25 MG PO SCH (08:32)
[2017-06-03] MEDS: Gabapentin CAP(*) 300 MG PO SCH (08:32)
[2017-06-03] MEDS: Topiramate TAB(*) 25 MG PO SCH (08:32)
[2017-06-03] MEDS: Omeprazole CAP* 20 MG PO SCH (08:32)
[2017-06-03] MEDS: Nitrofurantoin Macrocrystals* 100 MG CAP PO SCH (08:32)
[2017-06-03] MEDS: oxyCODONE/Acetamin 5/325 MG* TAB PO PRN (08:32)
[2017-06-03] MEDS: Aspirin EC Low Dose* 81 MG TAB.EC PO SCH (08:32)
[2017-06-03] MEDS: Atorvastatin* 80 MG TAB PO SCH (08:32)
[2017-06-03] MEDS: Baclofen TAB* 10 MG PO SCH (08:32)
[2017-06-03 14:23] VITALS: BP 120/70
--- NOTE | 2017-06-03 23:05 | DS ---
CC: Dr. Hathaway; Dr. Garcia * DISCHARGE SUMMARY: DATE OF ADMISSION: 06/01/17 DATE OF DISCHARGE: 06/03/17 PRIMARY CARE PROVIDER: Dr. Hathaway DISCHARGE DIAGNOSES: 1. 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 2. Constipation, flatulence and abdominal pain secondary to that, that resolves after the patient has a bowel movement. SECONDARY DIAGNOSES: 1. History of two times cerebrovascular accidents with residual right spastic hemiparesis and right homonymous hemianopia. 2. Status post right above the knee amputation. 3. History of peripheral vascular disease. 4. History of pulmonary embolus status post IVC filter placed in the past. 5. History of migraine headaches. 6. History of partial seizure evolving to secondary generalized seizure, under the care of Dr. Hollis. 7. History of traumatic brain injury. 8. Hypertension. 9. Dyslipidemia. 10. Gastroesophageal reflux disease. 11. History of glaucoma. MEDICATIONS AT DISCHARGE: Include; 1. Doxycycline 100 mg p.o. b.i.d. for a total of 6 weeks. 2. Aspirin 81 mg daily. 3. Tylenol 650 mg every 4 hours p.r.n. 4. Lipitor 80 mg daily. 5. Baclofen 10 mg b.i.d. 6. Celexa 20 mg at bedtime. 7. Colace 250/300 mg at night. 8. Gabapentin 600 mg q.p.m. and 300 mg in the a.m. 9. Guaifenesin with codeine on a p.r.n. basis. 10. Hydrochlorothiazide 25 mg daily. 11. Xalatan eyedrops one drop to both eyes daily. 12. Milk of magnesia 30 mL daily p.r.n. 13. Metoprolol 25 mg b.i.d. 14. Triple antibiotic ointment on a p.r.n. basis. 15. Nitrofurantoin 100 mg daily. 16. Nortriptyline 20 mg at bedtime. 17. Prilosec 20 mg daily. 18. Senna 8.6 mg tablet daily and hold for diarrhea. 19. Simethicone 80 mg a.c. for flatulence and abdominal gas pain. 20. Topamax 100 mg at bedtime and 50 mg q.a.m. The patient is to have CRP, CBC, and CMP to be drawn and sent to Dr. Garcia's office and the patient's primary care provider on a weekly basis when on antibiotics. FOLLOWUP: The patient is recommended to follow up with Dr. Hathaway in approximately 2 to [address] Garcia in approximately 2 weeks. During this hospital stay, the patient and the patient's family were encouraged for the patient to keep pressure off his buttocks and to sleep in bed and not in recliner. LABORATORY DATA AND STUDIES PERFORMED DURING THE HOSPITAL STAY: Include; On , white blood cell count 6.8; hemoglobin 12.1; hematocrit 36; and platelets of 285. Sodium of 136, potassium 3.8, chloride 107, carbon dioxide 24 , BUN 15, creatinine 1.14. Liver function tests were unremarkable. C-reactive protein was 8.1 at admission. Brain natriuretic peptide was 10. Urinalysis was positive for trace urobilinogen, otherwise unremarkable. Blood cultures obtained on 06/02/17, preliminary results were negative. The patient's pelvis CT obtained at admission, impression: "Extending caudal and posterior from the right ischial tuberosity to the skin. There is a narrow tract of increased density and soft tissue edema within the subcutaneous tissue plane. No loculated abscess collection, subcutaneous emphysema or conspicuous foreign body evident. No suspicious osseous change at the right greater tuberosity to strongly favor osteomyelitis. The visualized left thigh is larger than the right. Increase size in the left external iliac, common femoral , and great saphenous and femoral veins, proximal segment veins compared with the contralateral side. Lower extremity ultrasound on the same date was negative for DVT. There was also chronic 2.9 cm transverse maximum dimension pedunculated benign morphology of osteochondroma projecting right posterolateral from the right iliac wing without change compared with CT from April 2012 without concern." The MRI of the pelvis obtained on 06/01/17, impression: "There is area of inflammatory change along the coccyx noted on the previous CT evaluation. There is edema within the distal coccyx and adjacent soft tissues. There is no appreciable loculated fluid collection to suggest abscess. Given the clinical history, the presence of bone and soft tissue edema suggest osteomyelitis with associated soft tissue cellulitis." CONSULTANTS DURING THE HOSPITAL STAY: Include Dr. Garcia from Infectious Disease. HOSPITALIZATION COURSE: Al Cali is a 51-year-old male with dense right hemiparesis due to history of traumatic brain injury and CVAs in the past, who also has global aphasia and very limited verbalization presents to the hospital after treatment of approximately 2 months off and on with antibiotics of right buttock cellulitis. When the patient was seen in the emergency department, apart from that, that his right buttock was slightly more atrophic comparing with the left likely due to the patient has history of right AKA. There was no evidence of skin infection or discoloration. The right buttock was slightly tender to palpation. Subsequent CT showed possibility of a tract and soft tissue edema, but once again there was no opening of the tract on the surrounding skin. Subsequent MRI of the pelvis had questioned right ischial tuberosity osteomyelitis. Dr. Garcia saw the patient in consultation and recommended 6 weeks of p.o. antibiotics which will be doxycycline. During that time, the patient is to have a weekly lab work to be drawn with reports to be sent to his primary care provider and Dr. Garcia. Dr. Garcia wishes to follow up with the patient in approximately two weeks. The patient has history of generalized pain, back pain, migraine headache. He complains of abdominal pain and constipation during this hospital stay. During his first hospital day, he was noted to have abdominal pain. There was relief with bowel movement after milk of magnesia was given. The patient had large bowel movement on day prior to discharge. On the day of discharge, he once again developed mild abdominal pain and abdominal distention and he is about to go to the bathroom to have another bowel movement. At this point, I do not believe that his abdominal pain requires or warrants any further investigations. It appears that the patient had been constipated and that he had been relieved successfully with laxatives given during his hospital stay. Yesterday upon reevaluation after the patient had bowel movement, his abdominal pain resolved. The patient was prescribed simethicone and additional Senokot to relieve his constipation at home. He also takes milk of magnesia on a daily basis and he was recommended to take his milk of magnesia 2 hours before or after his doxycycline dose to not inhibit absorption of doxycycline. PHYSICAL EXAMINATION AT THE TIME OF DISCHARGE: Vitals Signs: Blood pressure 124/77, heart rate of 75 and regular, respiratory rate 20, oxygen saturation 100 % on room air, temperature 99.0. General: The patient is a very pleasant 51- year- old male who is in no acute distress. The patient is alert and able to follow commands, but basically nonverbal. HEENT: Head is atraumatic, normocephalic. Eyes: Pupils equal and reactive to light and accommodation. Oropharynx clear. Mucosa moist. Neck: Supple. No JVD. No bruits bilaterally. Cardiovascular: Regular rate and rhythm. No murmurs. Respiratory : Clear to auscultation bilaterally. Abdomen: Distended. Tympanitic to percussion. Mildly tender in the epigastric left lower quadrant with no rebound and no guarding. Bowel sounds present in all 4 quadrants. Extremities : There is +1 pitting pedal edema on the left. The patient is status post right AKA. Pulses are palpable in all 4 extremities. Skin: No ecchymotic area or rashes noted. Neuro Evaluation: The patient has spastic right hemiparesis and global aphasia. Please note that this is a short summary of the patient's hospitalization. Please refer to further medical records for details. TIME SPENT: Approximately 45 minutes was spent on the patient's discharge. [id number]/[facility] #: [id number] [facility]
== END 2017-06-03 15:00 | disposition home health service (06) | DRG 344 ==
LOC: ED 08:56 → MED 13:30 → OBSVTOIN 06-02 08:47
PROVIDERS: ADMIT Internal Medicine; ATTEND Internal Medicine
DX: M86.28 Subacute osteomyelitis, other site (principal); I69.351 Hemiplegia and hemiparesis following cerebral infarction affecting right dominant side; G40.409 Other generalized epilepsy and epileptic syndromes, not intractable, without status epilepticus; Z89.611 Acquired absence of right leg above knee; H53.461 Homonymous bilateral field defects, right side; I73.9 Peripheral vascular disease, unspecified; I10 Essential (primary) hypertension; E78.5 Hyperlipidemia, unspecified; K21.9 Gastro-esophageal reflux disease without esophagitis; H40.9 Unspecified glaucoma; K59.09 Other constipation; R10.9 Unspecified abdominal pain; R94.4 Abnormal results of kidney function studies; R14.3 Flatulence; G43.909 Migraine, unspecified, not intractable, without status migrainosus; D16.8 Benign neoplasm of pelvic bones, sacrum and coccyx; R14.0 Abdominal distension (gaseous); Z86.711 Personal history of pulmonary embolism; Z88.0 Allergy status to penicillin; Z88.1 Allergy status to other antibiotic agents; Z91.040 Latex allergy status; Z82.49 Family history of ischemic heart disease and other diseases of the circulatory system; Z82.61 Family history of arthritis; Z87.820 Personal history of traumatic brain injury; I69.320 Aphasia following cerebral infarction; I69.398 Other sequelae of cerebral infarction; Z97.4 Presence of external hearing-aid; Z87.891 Personal history of nicotine dependence; Z95.828 Presence of other vascular implants and grafts; Z79.82 Long term (current) use of aspirin
CPT/HCPCS: 36415; 72193; 72195; 80048; 80053; 81003; 83605; 83880; 85025; 85652; 86140; 86141; 87040; 99284; A9270-GY; G0378; J1644; J2405; J3480; Q9967

== ENCOUNTER 2017-12-26 08:01 | Emergency (ER) | payer MEDICAID ==
[2017-12-26] MEDS ORDERED: Morphine INJ** 4 MG/ML 1 ML CARPUJECT IV ONE (08:23)
[2017-12-26] MEDS ORDERED: LORazepam INJ* 2 MG/ML 1 ML VIAL IV PUSH ONE (08:23)
--- NOTE | 2017-12-26 08:26 | ED ---
Back Pain - HPI Summary HPI Summary: This patient is a 52 year old M BIBA to [facility] accompanied by his family after he fell while switching wheel chairs this morning. The patient rates the pain 7/ 10 in severity. Symptoms aggravated by movement. Patient reports neck pain, back pain, right hip pain, LLE pain, and ABD pain. Pt denies LE pain Pt has a right sided AKA due to blood clots. Hx of CVA 7 years ago with deficits. Pt lives in [facility] alone and has aides that come. Family reports that he sleeps in his chair and will not get into bed which causes generalized edema. He states the back pain is not new to today and that is was hurting before he fell today. Hx of back pain, right sided paralysis, expressive aphasia, and HTN. Pt takes baclofen and gabapentin. - History of Current Complaint Chief Complaint: EDDizziness Stated Complaint: FALL Time Seen by Provider: 12/26/17 08:05 Hx Obtained From: Patient, Family/Architectural Associate Onset/Duration: Still Present Onset/Duration: Still Present Timing: Constant Severity Initially: Severe Severity Currently: Severe Pain Intensity: 7 Pain Scale Used: 0-10 Numeric Aggravating Symptom(s): Movement Associated Signs And Symptoms: Negative: Fever Related History: Previous Back Injury - Allergies/Home Medications Allergies/Adverse Reactions: Allergies Allergy/AdvReac Type Severity Reaction Status Date / Time Penicillins Allergy Severe Hives Verified 12/26/17 08:14 Carbapenems Allergy Intermediate Unknown Verified 12/26/17 08:14 Reaction Details Cephalosporins Allergy Intermediate Unknown Verified 12/26/17 08:14 Reaction Details latex Allergy Intermediate Unknown Verified 12/26/17 08:14 Reaction Details Home Medications: Home Medications Fenofibrate(NF) [Tricor(NF)] 160 mg PO DAILY 12/26/17 [History Confirmed ] PMH/Surg Hx/FS Hx/Imm Hx Endocrine/Hematology History: Denies: Hx Diabetes Cardiovascular History: Reports: Hx Hypercholesterolemia, Hx Hypertension - ON DAILY MEDS Denies: Hx Pacemaker/ICD Comment Only: Other Cardiovascular Problems/Disorders - RIGHT SIDE ARM PARALIZED, RT LEG REMOVED GI History: Reports: Other GI Disorders - chronic constipation History: Denies: Hx Renal Disease Musculoskeletal History: Reports: Other Musculoskeletal History - right above knee amputation Sensory History: Reports: Hx Contacts or Glasses Denies: Hx Hearing Aid Opthamlomology History: Reports: Hx Contacts or Glasses Neurological History: Reports: Hx CVA, Hx Seizures - SINCE 2008, ON DAILY MEDS , Hx Transient Ischemic Attacks (TIA) - this admission, Other Neuro Impairments/ Disorders - CVA 5 years ago Psychiatric History: Denies: Hx Panic Disorder, Hx Inpatient Treatment - Surgical History Surgery Procedure, Year, and Place: R leg amputation 2009prior to that R foot partial amputation/ 2004 [facility]. 2010 IVC FILTER. Hx Anesthesia Reactions: No Infectious Disease History: No Infectious Disease History: Denies: Traveled Outside the [place] in Last 30 Days - Family History Known Family History: Positive: Hypertension, Diabetes - Social History Alcohol Use: None Substance Use Type: Reports: None Smoking Status (MU): Former Smoker Type: Cigarettes Amount Used/How Often: LESS THEN 1 PPD 25 YRS Have You Smoked in the Last Year: No Review of Systems Positive: Other - fall Positive: Abdominal Pain Positive: Other - neck pain, back pain, right hip pain, LLE pain All Other Systems Reviewed And Are Negative: Yes Physical Exam - Summary Physical Exam Summary: Appearance: Well appearing, no pain distress Skin: warm, dry, reflects adequate perfusion Head/face: normal Eyes: EOMI, GRAHAM ENT: mucous membranes moist Neck: supple, non-tender Respiratory: CTA, breath sounds present Cardiovascular: RRR, pulses symmetrical Abdomen: non-tender, soft Bowel Sounds: present Musculoskeletal: right AKA, contracture in the right hand and he is unable to move the right side well. Left lumbar musculature is TTP, 3+ LE edema in the left leg. Neuro: normal, sensory motor intact, A&Ox3 Triage Information Reviewed: Yes Vital Signs On Initial Exam: Initial Vitals Temp Pulse Resp BP Pulse Ox 98.8 F 81 17 115/68 98 12/26/17 08:05 12/26/17 08:05 12/26/17 08:05 12/26/17 08:05 12/26/17 08:05 Vital Signs Reviewed: Yes Diagnostics - Vital Signs Vital Signs Temp Pulse Resp BP Pulse Ox 12/26/17 08:05 98.8 F 81 17 115/68 98 - Laboratory Result Diagrams: 12/26/17 08:29 12/26/17 08:29 Lab Statement: Any lab studies that have been ordered have been reviewed, and results considered in the medical decision making process. - Radiology Pelvis Xray Radiology Interpretation Completed By: Radiologist - NO EVIDENCE FOR FRACTURE, IF THE PATIENT'S SYMPTOMS PERSIST RECOMMEND FOLLOW-UP IMAGING. ED physician has reviewed this radiology report. - CT CT L spine CT Interpretation Completed By: Radiologist - , 1. DEGENERATIVE DISC DISEASE AND OSTEOPOROSIS MOST PRONOUNCED AT L4-L5 AND L5-S1, DESCRIBED ABOVE. 2. NO ACUTE OSSEOUS INJURY TO THE LUMBAR SPINE. ED physician has reviewed this radiology report. - EKG 0807 Cardiac Rate: NL EKG Rhythm: Sinus Rhythm - at [address] Segment: Normal EKG Interpretation: normal axis, normal interval Re-Evaluation - Re-Evaluation First Eval Re-Evaluation Time: 10:12 Change: Improved Back Pain Course/Dx - Course Course Of Treatment: Patient with limited mobility from prior stroke presents after minor fall patient with a history of limited mobility due to prior stroke presents with minor fall after missing his wheelchair while transferring. He complains of left-sided back pain and hip pain which is a chronic problem for him. X-rays of the hip/pelvis and CT of the lumbar spine indicate no acute process. Patient's pain and spasm was treated with improvement. He'll be discharged to home with close primary care follow-up. He will continue on his outpatient regimen for muscle relaxation. - Diagnoses Differential Diagnosis/HQI/PQRI: Positive: Fracture, Strain, Sprain Provider Diagnoses: Fall, Chronic back pain, Acute lumbar myofascial strain Discharge - Sign-Out/Discharge Documenting (check all that apply): Patient Departure - Discharge Plan Condition: Improved Disposition: HOME Patient Education Materials: Fall Prevention for Older Adults (ED), Low Back Strain (ED) Referrals: Bobo Hathaway MD [Primary Care Provider] - Additional Instructions: Call first thing on arrival home to schedule prompt follow-up with the primary care physician. If he continues to have difficulty with weakness or falls he may need increased level of care. Resume home medications today. Return if worse, new symptoms or other concerns. - Billing Disposition and Condition Condition: IMPROVED Disposition: Home - Attestation Statements Document Initiated by Scribe: Yes Documenting Scribe: Bronson Galarza Provider For Whom Scribe is Documenting (Include Credential): Reji Iniguez MD Scribe Attestation: Bronson Owen, scribed for Reji Iniguez MD on 12/26/17 at 1408. Analisa Documentation Reviewed: Yes Provider Attestation: The documentation as recorded by the alineibBronson patrick accurately reflects the service I personally performed and the decisions made by me, Reji Iniguez MD
[2017-12-26 08:48] LABS: ABS Basophils 0 10^3/ul (0-0.2); ABS Eosinophils 0.2 10^3/ul (0-0.6); ABS Lymphocytes 1.6 10^3/ul (1.0-4.8); ABS Monocytes 0.4 10^3/ul (0-0.8); ABS Neutrophils 3.8 10^3/ul (1.5-7.7); ABS Nucleated RBC 0 10^3/ul; Eosinophil % 2.7 % (0-6); Hematocrit 40 % (42-52); Hemoglobin 13.3 g/dl (14.0-18.0); Lymphocyte % 26.4 % (25-47); Mean Corpuscular HGB Conc 33 g/dl (31-36); Mean Corpuscular Hemoglobin 29 pg (27-31); Mean Corpuscular Volume 87 fL (80-94); Mean Platelet Volume 8.2 um3 (7.4-10.4); Nucleated Red Blood Cells % 0.2; Platelet Count 289 10^3/ul (150-450); Red Blood Count 4.61 10^6/ul (4.00-5.40); Red Cell Distribution Width 16 % (10.5-15)
[2017-12-26] MEDS ORDERED: Morphine INJ* 4 MG/ML 1 ML SYRINGE (NEW SYRINGE VERSION) IV ONE (09:00)
[2017-12-26 09:04] LABS: EGFR Non-African American 55.5 (>60)
--- NOTE | 2017-12-26 09:35 | RAD ---
HISTORY: fall, L low back pain COMPARISONS: CT of the chest abdomen and pelvis dated May 03, 2012 TECHNIQUE: Multiple contiguous axial CT scans were obtained of the lumbar spine without intravenous contrast, with coronal and sagittal multiplanar reformations. FINDINGS: SPINAL CANAL: Evaluation of the central canal is limited on CT technique; however, there is no obvious canalicular mass or epidural hemorrhage. ALIGNMENT: There is a mild dextroscoliotic curvature of the spine. VERTEBRAL BODIES: The vertebral bodies are preserved in height. The bones are normal in attenuation. There is mild anterolateral marginal osteophyte formation. JOINTS: There is mild facet osteoarthritis along the lower lumbar spine. MUSCULATURE: Unremarkable INTERVERTEBRAL DISCS: There is mild diffuse loss of intervertebral disc height throughout the spine. AXIAL IMAGES: T12-L1: There is no osseous neural foraminal narrowing or central canal stenosis. L1-L2: There is no osseous neural foraminal narrowing or central canal stenosis. L2-L3: There is no osseous neural foraminal narrowing or central canal stenosis. L3-L4: There is no osseous neural foraminal narrowing or central canal stenosis. L4-L5: There is moderate bilateral neuroforaminal narrowing. There is no significant osseous central canal stenosis. L5-S1: There is moderate bilateral neural foraminal narrowing. There is no significant osseous central canal stenosis. SOFT TISSUES: And IVC filter is noted. OTHER: None IMPRESSION: 1. DEGENERATIVE DISC DISEASE AND OSTEOPOROSIS MOST PRONOUNCED AT L4-L5 AND L5-S1, DESCRIBED ABOVE. 2. NO ACUTE OSSEOUS INJURY TO THE LUMBAR SPINE.
--- NOTE | 2017-12-26 09:35 | RAD ---
INDICATION: Left hip injury. COMPARISON: Comparison is made with a prior CT of the pelvis from June 01, 2017. TECHNIQUE: 2 AP views of the pelvis were obtained. FINDINGS: The bones are in normal alignment. No fracture is seen. There is moderate bilateral osteoarthritic change in the hips. IMPRESSION: NO EVIDENCE FOR FRACTURE, IF THE PATIENT'S SYMPTOMS PERSIST RECOMMEND FOLLOW-UP IMAGING.
[2017-12-26 10:28] VITALS: BP 100/53
== END 2017-12-26 10:28 | disposition home or self-care (01) ==
LOC: ED 08:01
DX: S39.012A Strain of muscle, fascia and tendon of lower back, initial encounter (principal); M54.9 Dorsalgia, unspecified; G89.29 Other chronic pain; W19.XXXA Unspecified fall, initial encounter; Y92.9 Unspecified place or not applicable; Z86.73 Personal history of transient ischemic attack (TIA), and cerebral infarction without residual deficits
CPT/HCPCS: 36415; 72131; 72170; 80048; 85025; 93005; 96374; 96375; 96376; 99283; J2060; J2270

== ENCOUNTER 2019-04-15 13:54 | Inpatient (IN) | payer MEDICAID ==
--- NOTE | 2019-04-15 14:08 | ED ---
Back Pain - HPI Summary HPI Summary: 53 year old male presents to the ED by EMS with a chief complaint of lower back pain starting last week, gradually worsening until today. The pain today is severe. Per EMS, patient has baseline expressive aphasia and left sided facial droop. Patient has a history of CVA, bilateral lower extremity edema, seizures, and HTN. No Hx of DM. Patient in wheelchair at baseline and uses diaper. Per [facility] has hx cellulitis and osteomyelitis of R ischial tuberosity. - History of Current Complaint Stated Complaint: LOW BACK PAIN PER EMS Time Seen by Provider: 04/15/19 13:56 Hx Obtained From: Patient Onset/Duration: Gradual Onset, Lasting Days, Still Present Onset/Duration: Started Days Ago Timing: Constant Back Pain Location: Is Diffuse - lower back Severity Initially: Moderate Severity Currently: Severe Character: Unable to Describe Aggravating Symptom(s): Nothing Associated Signs And Symptoms: Positive: Negative - Allergies/Home Medications Allergies/Adverse Reactions: Allergies Allergy/AdvReac Type Severity Reaction Status Date / Time Penicillins Allergy Severe Hives Verified 12/26/17 08:14 Carbapenems Allergy Intermediate Unknown Verified 12/26/17 08:14 Reaction Details Cephalosporins Allergy Intermediate Unknown Verified 12/26/17 08:14 Reaction Details latex Allergy Intermediate Unknown Verified 12/26/17 08:14 Reaction Details Home Medications: Home Medications Oxybutynin TAB* [Ditropan TAB*] 2.5 mg PO BID 04/15/19 [History Confirmed ] Tamsulosin CAP* [Flomax CAP*] 0.4 mg PO DAILY 04/15/19 [History Confirmed ] PMH/Surg Hx/FS Hx/Imm Hx Endocrine/Hematology History: Denies: Hx Diabetes Cardiovascular History: Reports: Hx Hypercholesterolemia, Hx Hypertension - ON DAILY MEDS Denies: Hx Pacemaker/ICD Comment Only: Other Cardiovascular Problems/Disorders - RIGHT SIDE ARM PARALIZED, RT LEG REMOVED GI History: Reports: Other GI Disorders - chronic constipation History: Denies: Hx Renal Disease Musculoskeletal History: Reports: Other Musculoskeletal History - right above knee amputation Sensory History: Reports: Hx Contacts or Glasses Denies: Hx Hearing Aid Opthamlomology History: Reports: Hx Contacts or Glasses Neurological History: Reports: Hx CVA, Hx Seizures - SINCE 2008, ON DAILY MEDS , Hx Transient Ischemic Attacks (TIA) - this admission, Other Neuro Impairments/ Disorders - CVA 5 years ago Psychiatric History: Denies: Hx Panic Disorder, Hx Inpatient Treatment - Surgical History Surgery Procedure, Year, and Place: R leg amputation 2009prior to that R foot partial amputation/ 2004 [facility]. 2010 IVC FILTER. Hx Anesthesia Reactions: No - Family History Known Family History: Positive: Unknown, Hypertension, Diabetes - Social History Alcohol Use: None Substance Use Type: Reports: None Smoking Status (MU): Former Smoker Type: Cigarettes Amount Used/How Often: LESS THEN 1 PPD 25 YRS Have You Smoked in the Last Year: No Review of Systems Negative: Fever Positive: Arthralgia All Other Systems Reviewed And Are Negative: Yes Physical Exam - Summary Physical Exam Summary: Constitutional: Obese, Alert. (-) Distressed Skin: Warm, Dry. Old scar to right upper arm. HENT: Normocephalic; Atraumatic Eyes: Conjunctiva normal Neck: Musculoskeletal ROM normal neck. (-) JVD, (-) Stridor, (-) Nuchal rigidity Cardio: Rhythm regular, rate normal, Heart sounds normal; Intact distal pulses; Radial pulses are 2+ and symmetric. (-) Murmur Pulmonary/Chest wall: Effort normal. (-) Respiratory distress, (-) Wheezes, (-) Rales Abd: Soft, (-) tenderness, (-) Distension, (-) Guarding, (-) Rebound Musculoskeletal: Edema in lower extremity of left leg. S/p R AKA Lymph: (-) Cervical adenopathy Neuro: Alert, Expressive aphasia Psych: Mood and affect Normal /rectal: R>L areas of induration to the buttocks w underlying tenderness. No perianal or scrotal tenderness. 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 Triage Information Reviewed: Yes Vital Signs Reviewed: Yes Procedures - Sedation Patient Received Moderate/Deep Sedation with Procedure: No Diagnostics - Laboratory Result Diagrams: 04/16/19 06:45 04/16/19 06:45 Lab Statement: Any lab studies that have been ordered have been reviewed, and results considered in the medical decision making process. - CT APCT CT Interpretation Completed By: Radiologist Summary of CT Findings: IMPRESSION: 1. A SINUS TRACT/ULCERATION EXTENDS FROM THE INFERIOR RIGHT GLUTEAL SKIN SURFACE TO THE RIGHT ISCHIAL TUBEROSITY. THERE IS NO ORGANIZED FLUID COLLECTION OR CT EVIDENCE OFOSTEOMYELITIS. 2. AN IVC FILTER IS IN PLACE. An ED physician has reviewed this report. Re-Evaluation - Re-Evaluation First Eval Re-Evaluation Time: 14:50 Comment: d/w family CT results c/w cellulitis. Patient still in a lot of pain, family concerned about patient performing ADLs/cleaning/toileting in pain w cellulitis. Will d/w hospitalist. Back Pain Course/Dx - Course Course Of Treatment: 53 y/o male w hx CVA, R AKA, wheelchair bound who p/w buttock pain (hx prior R buttock cellulitis and early osteomyelitis in past treated w doxy). - exam concerning for cellulitis, will check CT to assess for abscess. Given morphine for pain, IVF. Clindamycin for cellulitis. - given persistent pain, hx prior osteo and tachycardia will admit - Diagnoses Provider Diagnoses: Buttock pain, Cellulitis - Provider Notifications Discussed Care Of Patient With: Brittney Nick - Hospitalist Time Discussed With Above Provider: 17:20 Instructed by Provider To: Admit As Observation - I spoke to Dr. Nick who accepts patient for admission as observation. Admit/Transition Orders Completed By ED Provider: Yes Discharge ED - Sign-Out/Discharge Documenting (check all that apply): Patient Departure - Admit - Discharge Plan Condition: Stable Disposition: ADMITTED TO [facility] - Billing Disposition and Condition Condition: STABLE Disposition: Admitted to [facility] - Attestation Statements Document Initiated by Scribe: Yes Documenting Scribe: Arpit Senior Provider For Whom Cindaibe is Documenting (Include Credential): Hayley Wise MD Scribe Attestation: I, Arpit Senior, scribed for Hayley Wise MD on 04/16/19 at 1520. Scribe Documentation Reviewed: Yes Provider Attestation: The documentation as recorded by the cindaibArpit patrick accurately reflects the service I personally performed and the decisions made by me, Hayley Wise MD Status of Scribe Document: Viewed
--- OUTSIDE RECORDS SUMMARY | 2019-04-15 14:08 | XMS REPORT ---
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 Chronic Chronic Diagnosis Active Angelica venous venous 11-28 Noelle hypertensio hypertensio [id number] n w/o comp n w/o comp of l low of l low extrem extrem Essential Essential Diagnosis Active Angelica (primary) (primary) 11-28 Noelle hypertensio hypertensio [id number] n n 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-28 Noelle emo def emo def [id number] following following unsp unsp cerebvasc cerebvasc disease disease 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, disorder, 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 recurrent, recurrent, unspecified unspecified Unspecified Unspecified Diagnosis Active Angelica open-angle open-angle Noelle glaucoma, glaucoma, [id number] stage stage unspecified unspecified Mixed Mixed Diagnosis Active Angelica hyperlipide hyperlipide Noelle lilly lilly [id number] Acquired Acquired Diagnosis Active Angelica absence of absence of Noelle unspecified unspecified [id number] leg above leg above knee knee Thrombotic Thrombotic Diagnosis Active Angelica microangiop microangiop Noelle rehan rehan [id number] Medication knowledge/s Meds Resolve 2015-09-16 Jackie darnell d 2-11 18:04:00 Sinnigen deficit: pt 15:50: [id number] 00 Diagnoses knowledge/s Diagnoses Resolve 2016-03-17 Tammee kill d 2- 15:00:00 Cesar-Hor deficit: pt 15:50: an 00 Diagnoses knowledge/s Diagnoses Resolve 2016-03-17 Tammee kill d 2-11 15:00:00 Cesar-Hor deficit: cg 15:50: an 00 Pain knowledge/s Pain Mgmt Resolve 2015-09-16 Luz Maria kill d 3 18:04:00 Samuels deficit: pt 15:45: [id number] 00 Cardio hypertensio Cardiovasc Resolve 2016-09-08 Luz Maria n ular d 3 21:45:00 Samuels 15:45: [id number] 00 Integument skin Integument Resolve 2015-09-16 Luz Maria integrity d 05-14 18:04:00 Samuels risk 15:45: [id number] 00 Nutrition knowledge/s Nutrition Resolve 2015-12-10 Luz Maria kill d 3 15:20:00 Samuels deficit: pt 15:45: [id number] 00 Elimination constipatio Eliminatio Resolve 2015-09-16 Luz Maria n n d 05-14 18:04:00 Samuels 15:45: [id number] 00 Elimination urinary Eliminatio Resolve 2015-05-15 Luz Maria incontinenc n d 3 15:45:00 Arvind e 15:45: [id number] 00 Activity ADL Activity Resolve 2016-03-17 Luz Maria assistance d 3 15:00:00 Samuels required 15:45: [id number] 00 Safety fall risk Safety Resolve 2015-09-16 Luz Maria factor d 05-14 18:04:00 Samuels present 15:45: [id number] 00 Medication injectable Meds Resolve 2015-09-16 Luz Maria med d 05-14 18:04:00 Arvind assistance 15:45: [id number] required 00 Musculoskel transfer Musculoske Unknown Luz Maria etal assistance letal 05-14 Arvind required 15:45: [id number] 00 Safety knowledge/s Safety Resolve 2015-09-16 Jackie kill d 3-17 18:04:00 Sinnigen deficit: pt 17:45: [id number] 00 Respiratory lung sounds Respirator Resolve 2015-07-16 Luz Maria deficit y d 07-15 18:27:00 Arvind 18:27: [id number] 00 Elimination urinary Eliminatio Resolve 2015-08-15 Luz Maria incontinenc n d 07-15 16:23:00 Samuels e 18:27: [id number] 00 Neuro depressive Neuro/Emot Resolve 2016-03-17 Luz Maria feelings ion d 07-15 15:00:00 Samuels present 18:27: [id number] 00 Elimination urinary Eliminatio Resolve 2015-09-16 Luz Maria incontinenc n d 09-15 18:04:00 Arvind e 18:04: [id number] 00 Elimination urinary Eliminatio Resolve 2015-11-12 Luz Maria incontinenc n d 10-02 16:30:00 Arvind e 15:29: [id number] 00 Cardio edema Cardiovasc Resolve 2016-09-08 Shoshana ular d 10-15 21:45:00 Jerram MOWER SHARPENER 15:00: [id number] 00 Sensory impaired Sensory Resolve 2016-03-17 Shoshana verbal d 10-15 15:00:00 Jerram MOWER SHARPENER communicati 15:00: [id number] on 00 Elimination recurring Eliminatio Resolve 2015-12-10 Shoshana UTI n d 10-15 15:20:00 Jerram MOWER SHARPENER 15:00: [id number] 00 Pain knowledge/s Pain Mgmt Resolve 2015-12-10 Luz Maria kill gretta 11-11 15:20:00 Arvind deficit: pt 16:30: [id number] 00 Cardio hypertensio Cardiovasc Unknown Luz Maria n rory 11-11 Arvind 16:30: [id number] 00 Elimination diarrhea Eliminatio Resolve 2015-12-10 Luz Maria n d 11-11 15:20:00 Arvind 16:30: [id number] 00 Medication oral med Meds Resolve 2016-09-08 Luz Maria assistance d 11-11 21:45:00 Samuels required 16:30: [id number] 00 Medication knowledge/s Meds Resolve 2016-03-17 Luz Maria kill d 8-31 15:00:00 Samuels deficit: pt 16:30: [id number] 00 Elimination urinary Eliminatio Resolve 2015-12-10 Almaz frequency n d 11-12 15:20:00 [place] 15:00: [id number] 00 Elimination urinary Eliminatio Resolve 2015-12-10 Almaz incontinenc n d 11-19 15:20:00 [place] e 14:00: [id number] 00 Safety fall risk Safety Resolve 2016-03-17 Luz Maria factor d 9 15:00:00 Samuels present 15:20: [id number] 00 Nutrition knowledge/s Nutrition Resolve 2015-032016-03-17 Almaz kill d 0 15:00:00 [place] deficit: pt 13:15: [id number] 00 Elimination urinary Eliminatio Resolve 2015-032016-01-07 Luz Maria incontinenc n d 0-20 16:01:00 Arvind e 15:28: [id number] 00 Pain frequent Pain Mgmt Resolve 2015-032018-04-26 Luz Maria pain d 0-26 15:08:00 Samuels 16:01: [id number] 00 Respiratory lung sounds Respirator Resolve 2015-032016-03-17 Luz Maria deficit y d 0-26 15:00:00 Arvind 16:01: [id number] 00 Respiratory dyspnea Respirator Resolve 2016-09-08 Luz Maria present y d 03-17 21:45:00 Arvind 15:00: [id number] 00 Integument pressure Integument Resolve 2018-06-27 Luz Maria ulcer d 03-17 15:00:00 Samuels present 15:00: [id number] 00 Integument skin Integument Resolve 2016-03-17 Luz Maria integrity d 1 15:00:00 Samuels risk 15:00: [id number] 00 Nutrition changing Nutrition Resolve 2016-09-20 Luz Maria weight/appe d 03-17 15:30:00 Arvind tite 15:00: [id number] 00 Nutrition knowledge/s Nutrition Resolve 2016-08-16 Almaz kill d 1-12 15:30:00 [place] deficit: pt 16:10: [id number] 00 Medication knowledge/s Meds Resolve 2016-09-08 Almaz kill d 1-12 21:45:00 [place] deficit: pt 16:10: [id number] 00 Nutrition nutritional Nutrition Resolve 2016-08-16 Luz Maria restriction d 2- 15:30:00 Samuels s 15:30: [id number] 00 Musculoskel transfer Musculoske Unknown Luz Maria etal assistance letal 05-06 Samuels required 15:15: [id number] 00 Musculoskel requires Musculoske Unknown Luz Maria etal human letal 05-06 Samuels assist to 15:15: [id number] leave home 00 Sensory impaired Sensory Resolve 2016-10-06 Stephanie verbal d 3 15:00:00 Haile communicati 15:35: [id number] on 00 Safety fall risk Safety Resolve 2016-08-16 Stephanie factor d 3 15:30:00 Haile present 15:35: [id number] 00 Safety risk for Safety Resolve 2016-08-16 Stephanie hospitaliza d 3 15:30:00 Haile tion 15:35: [id number] 00 Integument stasis Integument Resolve 2016-09-08 Stephanie ulcer d 07-08 21:45:00 Haile present 15:30: [id number] 00 Integument skin Integument Resolve 2016-09-08 Stephanie integrity d 07-08 21:45:00 Haile risk 15:30: [id number] 00 Neuro impaired Neuro/Emot Resolve 2016-10-06 Stephanie decision-ma ion d 08-10 15:00:00 Haile jacinda 16:00: [id number] 00 Safety risk for Safety Resolve 2016-09-08 Stephanie hospitaliza d 6- 21:45:00 Haile tion 16:00: [id number] 00 Musculoskel requires Musculoske Unknown Stephanie etal human letal 08-23 Haile assist to 16:00: [id number] leave home 00 Nutrition nutritional Nutrition Resolve 2016-09-20 Stephanie restriction d 09-06 15:30:00 Haile s 15:20: [id number] 00 Neuro depressive Neuro/Emot Resolve 2018-06-20 Stephanie feelings ion d 09-06 16:00:00 Haile present 15:20: [id number] 00 Safety fall risk Safety Resolve 2016-09-08 Stephanie factor d 09-06 21:45:00 Haile present 15:20: [id number] 00 Musculoskel transfer Musculoske Unknown Stephanie etal assistance letal 09-06 Haile required 15:20: [id number] 00 Pain frequent Pain Mgmt Unknown Stephanie pain 10-01 Haile 15:20: [id number] 00 Cardio edema Cardiovasc Resolve 2017-03-03 Stephanie ular d 10-01 16:22:00 Haile 15:20: [id number] 00 Activity ADL Activity Resolve 2016-10-06 Stephanie assistance d 10-01 15:00:00 Haile required 15:20: [id number] 00 Safety risk for Safety Resolve 2016-10-06 Stephanie hospitaliza d 10-01 15:00:00 Haile tion 15:20: [id number] 00 Musculoskel requires Musculoske Unknown Stephanie etal human letal 10-01 Haile assist to 15:20: [id number] leave home 00 Medication knowledge/s Meds Resolve 2016-10-06 Almaz kill d 10-04 15:00:00 [place] deficit: pt 14:55: [id number] 00 Medication knowledge/s Meds Resolve 2017-03-03 Almaz kill d 10-14 16:22:00 [place] deficit: pt 15:30: [id number] 00 Safety can be left Safety Resolve 2017-03-03 Demetria alone for d 10-21 16:22:00 Lizett only short 15:00: [id number] periods 00 Sensory impaired Sensory Resolve 2017-03-03 Irene verbal d 10-28 16:22:00 Mara majano 16:00: [id number] on 00 Neuro impaired Neuro/Emot Resolve 2017-03-03 Irene decision-ma ion d 10-28 16:22:00 Mara monaco 16:00: [id number] 00 Musculoskel requires Musculoske Unknown Irene etal special letal 10-28 Mara noelat 16:00: [id number] ion 00 Nutrition nutritional Nutrition Resolve 2017-03-03 Bryan restriction d 11-05 16:22:00 Mason RN s 15:28: [id number] 00 Safety fall risk Safety Resolve 2017-03-03 Bryan factor d 11-05 16:22:00 Mason RN present 15:28: [id number] 00 Musculoskel transfer Musculoske Unknown Bryan etal assistance letal 11-05 Mason RN required 15:28: [id number] 00 Respiratory dyspnea Respirator Resolve 2017-03-03 Almaz present y d 11-11 16:22:00 [place] 15:30: [id number] 00 Respiratory lung sounds Respirator Resolve 2016-032017-03-03 Sindhu deficit y d 0-12 16:22:00 Uribe 16:22: [id number] 00 Safety risk for Safety Resolve 2016-032017-03-03 Sindhu hospitaliza d 0-12 16:22:00 Uribe tion 16:22: [id number] 00 Integument pressure Integument Unknown 2016-03 Angelica ulcer 0-23 Farhat present 16:00: [id number] 00 Integument stasis Integument Active 2016-03 Angelica ulcer 0-23 [place] present 16:00: [id number] 00 Integument skin Integument Resolve 2016-032017-03-03 Angelica integrity d 0-23 16:22:00 Farhat risk 16:00: [id number] 00 Elimination urinary Eliminatio Resolve 2016-032017-03-03 Angelica incontinenc n d 04-12 16:22:00 [place] e 17:25: [id number] 00 Elimination constipatio Eliminatio Resolve 2016-032017-03-03 Angelica n n d 04-12 16:22:00 Farhat 17:25: [id number] 00 Integument other wound Integument Resolve 2016-032017-03-03 Angelica present d 2- 16:22:00 [place] 16:22: [id number] 00 Elimination bowel Eliminatio Resolve 2016-032017-03-03 Angelica incontinenc n d 05-04 16:22:00 [place] e 16:22: [id number] 00 Endo/Enrique anti-coagul Endo/Enrique Resolve 2016-032018-06-20 Angelica ation d 05-09 16:00:00 Farhat therapy 16:03: [id number] 00 Elimination urinary Eliminatio Resolve 2016-032017-11-24 Angelica incontinenc n d 05-09 16:55:00 [place] e 16:03: [id number] 00 Elimination bowel Eliminatio Resolve 2016-032017-11-24 Angelica incontinenc n d 05-09 16:55:00 [place] e 16:03: [id number] 00 Respiratory dyspnea Respirator Resolve 2016-032018-03-01 Almaz present y d 05-11 15:31:00 [place] 15:50: [id number] 00 Safety fall risk Safety Resolve 2017-11-24 Sindhu factor d 03-15 16:55:00 Uribe present 16:20: [id number] 00 Safety risk for Safety Resolve 2017-11-24 Sindhu hospitaliza d 03-15 16:55:00 Uribe tion 16:20: [id number] 00 Safety can be left Safety Active Sindhu alone for 03-15 Uribe only short 16:20: [id number] periods 00 24 Hr Diet knowledge/s NT: 24Hr Resolve 2017-04-13 Bia kill Diet d 04-13 17:00:00 [place] deficit - 17:00: [id number] pt 00 24 Hr Diet knowledge/s NT: 24Hr Resolve 2017-04-13 Bia kill Diet d 04-13 17:00:00 [place] deficit - 17:00: [id number] cg 00 Integument skin Integument Resolve 2017-11-24 Angelica integrity d 05-06 16:55:00 [place]hat risk 16:38: [id number] 00 Neuro impaired Neuro/Emot Active Angelica decision-ma ion 05-06 Farhat monaco 16:38: [id number] 00 Safety cannot be Safety Active Angelica left alone 05-06 [place] 16:38: [id number] 00 Musculoskel requires Musculoske Resolve 2018-06-20 Angelica etal human letal d 05-06 16:00:00 Farhat assist to 16:38: [id number] leave home 00 Musculoskel requires Musculoske Resolve 2018-06-20 Angelica etal special letal d 05-06 16:00:00 [place] transportat 16:38: [id number] ion 00 Musculoskel transfer Musculoske Resolve 2018-06-20 Angelica etal assistance letal d 05-06 16:00:00 Farhat required 16:38: [id number] 00 Test/Treatm venipunctur Test/Injec Active Angelica ent e ordered t/Fabrice 06-03 Noelle [id number] Elimination constipatio Eliminatio Resolve 2017-11-24 Angelica n n d 06-03 16:55:00 Noelle 19:06: [id number] 00 Neuro confusion Neuro/Emot Active Angelica present ion 06-03 Noelle 19:06: [id number] 00 Medication potential Meds Resolve 2018-06-20 Angelica clinically d 06-03 16:00:00 Noelle significant 19:06: [id number] medication 00 issue Medication oral med Meds Resolve 2018-06-06 Angelica assistance d 06-03 15:00:00 Noelle required 19:06: [id number] 00 Medication knowledge/s Meds Resolve 2018-06-20 Angelica kill d 06-03 16:00:00 Noelle deficit: pt 19:06: [id number] 00 Elimination urinary Eliminatio Resolve 2017-11-24 Angelica urgency n d 09-29 16:55:00 Noelle 15:32: [id number] 00 Elimination urinary Eliminatio Resolve 2017-11-24 Angelica frequency n d 09-29 16:55:00 Noelle 15:32: [id number] 00 Safety risk for Safety Resolve 2018-04-20 Almaz hospitaliza d 9-20 14:59:00 [place] tion 16:31: [id number] 00 Integument skin Integument Resolve 2017-032018-04-20 Angelica integrity d 0-18 14:59:00 Noelle risk 14:11: [id number] 00 Elimination urinary Eliminatio Resolve 2017-032018-12-21 Angelica incontinenc n d 0-18 15:15:00 Noelle e 14:11: [id number] 00 Safety fall risk Safety Resolve 2017-032018-04-20 Angelica factor d 0-18 14:59:00 Noelle present 14:11: [id number] 00 Integument pressure Integument Unknown Angelica ulcer 04-06 Noelle present 14:59: [id number] 00 Integument skin Integument Resolve 2018-06-27 Angelica integrity d 2-13 15:00:00 Noelle risk 15:08: [id number] 00 Elimination recurring Eliminatio Resolve 2018-12-21 Angelica UTI n d 2-13 15:15:00 Noelle 15:08: [id number] 00 Activity ADL Activity Active Angelica assistance 04-26 Noelle required 15:08: [id number] 00 Activity self-care Activity Resolve 2018-11-30 Angelica deficit d 2-13 14:26:00 Noelle 15:08: [id number] 00 Safety risk for Safety Resolve 2018-06-20 Angelica hospitaliza d 2-13 16:00:00 Noelle tion 15:08: [id number] 00 Safety fall risk Safety Resolve 2018-06-20 Angelica factor d 2-13 16:00:00 Noelle present 15:08: [id number] 00 Nutrition knowledge/s Nutrition Active Angelica kill 06-20 Noelle deficit: pt 16:00: [id number] 00 Nutrition nutritional Nutrition Active Angelica restriction 06-20 Noelle s 16:00: [id number] 00 Endo/Enrique anti-coagul Endo/Enrique Active Angelica ation 4-16 Noelle therapy 15:00: [id number] 00 Safety fall risk Safety Active Angelica factor 4-16 Noelle present 15:00: [id number] 00 Safety risk for Safety Active Angelica hospitaliza 4-16 Noelle tion 15:00: [id number] 00 Medication knowledge/s Meds Resolve 2018-08-03 Angelica darnell d 4-16 16:00:00 Noelle deficit: pt 15:00: [id number] 00 Musculoskel transfer Musculoske Unknown Angelica etal assistance letal 06-27 Noelle required 15:00: [id number] 00 Musculoskel requires Musculoske Unknown Angelica etal human letal -16 Noelle assist to 15:00: [id number] leave home 00 Elimination knowledge/s Eliminatio Resolve 2018-12-21 Angelica darnell n d 07-04 15:15:00 Noelle deficit: pt 15:15: [id number] 00 Test/Treatm tests Test/Injec Active Angelica ent ordered t/Fabrice 07-07 Noelle [id number] Musculoskel requires Musculoske Unknown Angelica etal special letal 07-18 Noelle transportat 15:45: [id number] ion 00 Medication knowledge/s Meds Resolve 2018-2018-08-31 Angelica darnell d 08-10 16:53:00 Marianela deficit: pt 15:30: [employer] 00 [id number] Integument skin Integument Active Angelica integrity 08-24 Noelle risk 16:02: [id number] 00 Medication knowledge/s Meds Resolve 2018-09-22 Angelica darnell d 09-07 15:00:00 Marianela deficit: pt 15:30: [employer] 00 [id number] Respiratory dyspnea Respirator Active Angelica present y 11-30 Noelle 14:26: [id number] 00 Sensory impaired Sensory Active Zoila verbal 12-09 Spencer communicati 10:20: [id number] on 00 Sensory impaired Sensory Active Zoila hearing 12-09 [place] 10:20: [id number] 00 Activity self-care Activity Resolve 2018-032019-04-12 Angelica deficit d 0-10 15:48:00 Noelle 15:15: [id number] 00 Elimination urinary Eliminatio Active 2018-03 Angelica incontinenc n 0-17 Noelle e 15:33: [id number] 00 Allergies, Adverse Reactions, Alerts Allergy Name Allergy Status Severity Reaction(s) Onset Inactive Treating Comments Type Date Date Clinician Carbapenems Allergen Active Unknown Reaction Zeinab Group Unknown 05-05 Bella Cephalospori Allergen Active Unknown Reaction Zeinab ns Group Unknown 05-05 Bella latex Base Active Unknown Reaction Zeinab Ingredient Unknown 05-05 Bella Penicillins Allergen Active Unknown Reaction Zeinab Group Unknown 05-05 Bella Medications Ordered Filled Start Stop Current Ordering Indication Dosage Frequency Signature Comments Components Medication Medication Date Date Medication? Clinician (SIG) Name Name acetaminoph acetaminoph 2017- No [facility] 2 tab Unknown en 325 mg en 325 mg 11-28 Bobo MORENO tablet tablet amLODIPine amLODIPine 2016- No [facility] 1 tab Unknown 5 mg tablet 5 mg tablet 06-26 05- Bobo MORENO aspirin 81 aspirin 81 No [facility] 1 tab Unknown mg mg 6 Bobo MORENO tablet,ivania tablet,ivania yed release yed release atorvastati atorvastati No [facility] 1 tab Unknown n 80 mg n 80 mg 06-26 Bobo MORENO tablet tablet baclofen 10 baclofen 10 No [facility] 1 tab Unknown mg tablet mg tablet 11-28 Bobo MORENO citalopram citalopram 2016- No [facility] 1 tab Unknown 10 mg 10 mg 06-26 04- Bobo MORENO tablet tablet Colace 200 Colace 200 2016- No [facility] 1 tab Unknown mg capsule mg capsule 09-21 Bobo MORENO docusate docusate 2015- No [facility] 3 cap Unknown sodium 100 sodium 100 11-28 08-24 Bobo MORENO mg capsule mg capsule gabapentin gabapentin 2012-03 No [facility] 1-2 Cap Unknown 300 mg 300 mg 2- Bobo MORENO capsule capsule guaiFENesin guaiFENesin 2016- No [facility] 10 ML Unknown AC 10 AC 10 11-28 Bobo MORENO mg-100 mg/5 mg-100 mg/5 mL oral mL oral liquid liquid HYDROcodone HYDROcodone 2016- No [facility] 1 tab Unknown 10 10 11-28 Bobo MORENO mg-acetamin mg-acetamin ophen 325 ophen 325 mg tablet mg tablet latanoprost latanoprost 2018- No [facility] 1 drop Unknown 0.005 % eye 0.005 % eye 05-23- Bobo MORENO drops drops metoprolol metoprolol No [facility] 1 tab Unknown tartrate 25 tartrate 25 03-25 Bobo MORENO mg tablet mg tablet Milk of Milk of No [facility] 30 ML Unknown Magnesia Magnesia 11-28 Bobo MORENO 400 mg/5 mL 400 mg/5 mL oral oral suspension suspension nortriptyli nortriptyli 2016- No [facility] 1 Cap Unknown ne 10 mg ne 10 mg 06-26 Bobo MORENO capsule capsule omeprazole omeprazole No [facility] 1 Cap Unknown 20 mg 20 mg 11-29 ,Bobo capsule,del capsule,del ayed ayed release release Topamax 100 Topamax 100 2018- No [facility] 1 tab Unknown mg tablet mg tablet 11-25 Bobo MORENO Topamax 25 Topamax 25 2018- No [facility] 2 tab Unknown mg tablet mg tablet 04-18 Bobo MORENO Tricor 145 Tricor 145 2016- No [facility] 1 tab Unknown mg tablet mg tablet 11-28 Bobo MORENO sulfamethox sulfamethox 2015- No [facility] one Unknown azole 400 azole 400 09-25- Bobo MORENO tablet mg-trimetho mg-trimetho prim 80 mg prim 80 mg tablet tablet tamsulosin tamsulosin 2017- No [facility] one Unknown 0.4 mg 0.4 mg 09-2530 Bobo MORENO capsule capsule capsule nitrofurant nitrofurant No [facility] 1 Unknown oin oin 8-11 Bobo MORENO monohydrate monohydrate /macrocryst /macrocryst als 100 mg als 100 mg capsule capsule docusate docusate 2016- No [facility] 3 cap Unknown sodium 100 sodium 100 11-04 ,Bobo mg capsule mg capsule gentamicin gentamicin 2015-03- No [facility] 1 drop Unknown 0.3 % eye 0.3 % eye 03-30 ,[facility]o drops drops nortriptyli nortriptyli 2018- No [facility] 2 Cap Unknown ne 10 mg ne 10 mg 04-28 ,[facility]o (20 mg) capsule capsule hydroCHLORO hydroCHLORO No [facility] 1 Unknown thiazide 25 thiazide 25 06-24 ,Bobo tablet mg tablet mg tablet (25 mg) citalopram citalopram No [facility] 1tab Unknown 20 mg 20 mg 07-01 ,[facility]o tablet tablet fenofibrate fenofibrate 2016- No [facility] 1 Unknown nanocrystal nanocrystal 07-08 ,Bobo tablet lized 145 lized 145 (145 mg tablet mg tablet mg) doxycycline doxycycline 2016- No [facility] 1 Unknown hyclate 100 hyclate 100 07-09- ,[facility]o tablet mg tablet mg tablet (100 mg) Colace 100 Colace 100 2016-03- No [facility] 3 Unknown mg capsule mg capsule 09-29 ,Bobo capsule s fenofibrate fenofibrate 2016-03- No [facility] 1 cap Unknown 150 mg 150 mg 03-15 ,Bobo capsule capsule acetaminoph acetaminoph 2018- No [facility] 1-2 Unknown en 500 mg en 500 mg 03-15 Bobo MORENO Tablets tablet tablet clindamycin clindamycin 2017- No [facility] 150 mg Unknown HCl 150 mg HCl 150 mg 04-04 ,Bobo capsule capsule doxycycline doxycycline 2017- No [facility] 1 Unknown monohydrate monohydrate 05-17 ,[facility]o 100 mg 100 mg capsule capsule senna 8.6 senna 8.6 No [facility] 1 tab Unknown mg tablet mg tablet 06-03 ,Bobo hold for diarrhe a Colace 100 Colace 100 No [facility] Unknown Unknown mg capsule mg capsule 09-29 ,Bobo tamsulosin tamsulosin No [facility] Unknown Unknown 0.4 mg 0.4 mg 09-29 Bobo capsule capsule doxycycline doxycycline 2018- No [facility] Unknown Unknown 100 mg 100 mg 04-07 Bobo tablet tablet mupirocin 2 mupirocin 2 2018- No [facility] Unknown Unknown % topical % topical 04-07 Bobo ointment ointment mupirocin 2 mupirocin 2 No [facility] Unknown Unknown % topical % topical 04-07 ,Bobo ointment ointment oxybutynin oxybutynin No [place] Unknown Unknown chloride 5 chloride 5 04-07 rthy mg tablet mg tablet Kevananurag benzonatate benzonatate 2018- No [facility] Unknown Unknown 100 mg 100 mg 08-17 ,Bobo capsule capsule azithromyci azithromyci 2018- No [facility] Unknown Unknown n 250 mg n 250 mg 09-01 ,[facility]o tablet tablet benzonatate benzonatate 2018- No [facility] Unknown Unknown 100 mg 100 mg 09-04 ,Bobo capsule capsule topiramate topiramate No [facility] Unknown Unknown 25 mg 25 mg 09-22 ,Bobo tablet tablet Neosporin Neosporin No [facility] Unknown Unknown (lenard-segun-po (lenard-segun-po - ,Bobo lym) 3.5 lym) 3.5 mg-400 mg-400 unit-5,000 unit-5,000 unit/gram unit/gram top top ointment ointment Tylenol 325 Tylenol 325 No [facility] Unknown Unknown mg capsule mg capsule - ,Bobo Artificial Artificial No [facility] Unknown Unknown Tears Tears 09-22 ,Bobo Xalatan Xalatan No [facility] Unknown Unknown 0.005 % eye 0.005 % eye 09-22 ,Bobo drops drops Blue-emu Blue-emu No [facility] Unknown Unknown super super 09-22 ,Bobo strevilma strenth nortriptyli nortriptyli 2019-0 No [facility] Unknown Unknown ne 10 mg ne 10 mg 9-05 Bobo MORENO capsule capsule Vital Signs Vital Name Observation Time Observation Value Comments SYSTOLIC mm[Hg] 2019-04-12 18:10:08 122 mm[Hg] mm[Hg] Method: Sit DIASTOLIC mm[Hg] 2019-04-12 18:10:08 78 mm[Hg] mm[Hg] Method: Sit PULSE 2019-04-12 18:10:08 62 /min /min RESP RATE 2019-04-12 18:10:08 16 /min /min TEMP 2019-04-12 18:10:08 98.1 [degF] Procedures This patient has no known procedures. Results This patient has no known results.
--- OUTSIDE RECORDS SUMMARY | 2019-04-15 14:08 | XMS REPORT | Summary of Care ---
:1965 Author Organization [facility] Address [address] [place] [address] Care Team Providers Name Role Phone Bobo Hathaway Primary Care Provider Reason for Visit Reason Comments Form Completion Patient here for recertification paper work. 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 Incontinence Supply 1 Device by 150 Device 5 09/07/19 Active Disposable Does not Does not apply 15 apply Misc route FIVE TIMES DAILY. Extra large size adult incontinence briefs. For Urinary incontinence latanoprost (XALATAN) Place 1 Drop in 0 Active 0.005 % Ophthalmic both eyes EVERY Solution BEDTIME. eessozpj-[id number] Apply to open 1 Tube 1 07/10/19 Active lymyxin wound on left 17 (NEOSPORIN,TRIPLE lower leg daily ANTIBIOTIC) 400-5-5000 . Apply externally OintmentIndications: Venous ulcer (HCC) Liniments (BLUE-EMU by Apply 0 Active SUPER STRENGTH) Apply externally externally Cream route TWICE DAILY. ARTIFICIAL TEAR OP Place to the 0 Active external eye NEEDED. Gauze Pads & Dressings 1 Each by Does 14 Each 11 10/16/19 Active (QC NON-ADHERENT) not apply route 17 3"X4" Does not apply DAILY. Pads Gauze Pads & Dressings 1 Each by Does 14 Each 10/16/19 Active (BANDAGE ROLL 3"X75") not apply route 17 Does not apply Misc DAILY. magnesium hydroxide Take 30 mL by 210 mL 0 01/04/20 Active (MILK OF MAGNESIA) 400 mouth DAILY 17 MG/5ML Oral Suspension NEEDED (Constipation). atorvastatin (LIPITOR) Take 1 Tab by 90 Tab 3 01/10/20 Active 80 MG Oral Tab mouth DAILY. 18 mupirocin (BACTROBAN) Apply small 15 g 0 04/05/19 Active 2 % Apply externally amount twice 19 Ointment daily citalopram (CELEXA) 20 Take 1 Tab by 90 Tab 3 07/31/ Active MG Oral Tab mouth DAILY. 19 hydrochlorothiazide TAKE ONE TABLET 90 Tab 5 08/23/19 Active (HCTZ, ORETIC) 25 MG BY MOUTH EVERY 19 Oral TabIndications: DAY Dependent edema nortriptyline Take 1 Cap by 120 Cap 0 09/23/19 Active (PAMELOR) 10 MG Oral mouth EVERY 19 Cap BEDTIME. baclofen (LIORESAL) 10 TAKE ONE TABLET 60 Tab 5 09/26/19 Active MG Oral Tab BY MOUTH TWICE 19 A DAY Tamsulosin HCl TAKE ONE 30 Cap 5 10/17/19 Active (FLOMAX) 0.4 MG Oral CAPSULE BY 19 Cap MOUTH EVERY MORNING topiramate (TOPAMAX) Take 4 Tabs by 360 Tab 3 10/28/19 Active 25 MG Oral Tab mouth EVERY 19 BEDTIME. metoprolol (LOPRESSOR) Take 1 Tab by 180 Tab 4 11/15/19 Active 25 MG Oral Tab mouth TWICE 19 DAILY. Control Gel Formula 1 Each by Apply 20 Each 2 11/17/19 Active Dressing (DUODERM CGF externally 19 DRESSING) Apply route EVERY externally THREE DAYS. MiscIndications: Skin abrasion Omeprazole delayed rel Take 20 mg by 30 Cap 5 12/19/19 Active cap 20 MG Oral CAPSULE mouth DAILY. 19 DELAYED RELEASE SM ASPIRIN ADULT LOW TAKE ONE TABLET 30 Tab 5 12/19/19 Active STRENGTH 81 MG Oral BY MOUTH EVERY 19 Tab EC DAY oxybutynin (DITROPAN) Take 0.5 Tabs 90 Tab 3 01/13/20 Active 5 MG Oral Tab by mouth TWICE 19 DAILY. docusate sodium Take 1 Cap by 60 Cap 5 02/17/20 Active (COLACE) 100 MG Oral mouth TWICE 19 Cap DAILY. gabapentin (NEURONTIN) Take 1 Cap by 90 Cap 5 02/17/20 Active 300 MG Oral Cap mouth THREE 19 TIMES DAILY. nitrofurantoin TAKE ONE 30 Cap 5 01/23/20 Discontinued macrocrystal CAPSULE BY 19 020 (Provider (MACRODANTIN) 100 MG MOUTH EVERY DAY Discontinued) Oral Cap documented as of this encounter (statuses as of 03/19/2019) Active Problems Problem Noted Date Ulcer of left lower leg, limited to breakdown of skin 09/26/2017 Wheelchair bound 09/26/2017 Aphasia as late effect of cerebrovascular accident 07/15/2016 History of CVA in adulthood 02/05/2014 Overview: 2000 right hemiparesis and memory loss [address] Telma SAVAGE TBI (traumatic brain injury) 02/05/2014 Overview: Cerebrovascular accident 1999 and 2008 [place] medicaid waiver program for home care [facility] 6 days weeklu GERD (gastroesophageal reflux disease) 02/05/2014 Essential hypertension, benign 02/05/2014 Mixed hyperlipidemia 02/05/2014 Depression, recurrent 02/05/2014 Overview: Citalopram treatment Seizure disorder, secondary 02/05/2014 Overview: Due to cerebrovascular accident gabapentin and topiramate Neurology Dr Telma Horne [place] Muscle spasms of lower extremity 02/05/2014 Overview: Baclofen treatment Phantom limb syndrome 02/05/2014 Overview: S/p right AKA 2009 Nortryptiline and gabapentin History of tobacco use 02/05/2014 Overview: Quit 2009 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 S/p right AKA 2008 documented as of this encounter (statuses as of 03/19/2019) Resolved Problems Problem Noted Date Resolved Date Stasis ulcer, unspecified laterality 09/26/2017 09/26/2017 Peripheral vascular disease 07/15/2016 09/26/2017 Overview: History gangrene and R AKA 2009 Obesity 02/05/2014 09/26/2017 documented as of this encounter (statuses as of 03/19/2019) Immunizations Name Administration Dates Next Due Influenza (IM) Preservative Free 12/20/2018, 12/26/2017, 12/09/2016 Influenza (IM) W/Pres 12/25/2015 documented as of this encounter Social History Tobacco Use Types Packs/Day Years Used Date Former Smoker Smokeless Tobacco: Never Used Alcohol Use Drinks/Week oz/Week Comments No 0 Standard drinks or equivalent 0.0 Sex Assigned at Date Recorded Not on file Job Start Date Occupation Industry Not on file Not on file Not on file Travel History Travel Start Travel End No recent travel history available. documented as of this encounter Last Filed Vital Signs Vital Sign Reading Time Taken Comments Blood Pressure 124/74 03/19/2019 8:06 AM EST Pulse 74 03/19/2019 8:06 AM EST Temperature - - Respiratory Rate - - Oxygen Saturation 96% 03/19/2019 8:06 AM EST Inhaled Oxygen Concentration - - Weight 113.9 kg (251 lb) 03/19/2019 8:06 AM EST Height 182.9 cm (6') 03/19/2019 8:06 AM EST Body Mass Index 34.04 03/19/2019 8:06 AM EST documented in this encounter Patient Instructions Patient InstructionsBobo Hathaway MD - 03/19/2019 8:00 AM ESTBlood test today Physical medicine MDs in [place] Dr Humphreys or Dr Delacruz both at [facility] 8: 23 AM EST documented in this encounter Progress Notes Bobo Hathaway MD - 03/19/2019 8:00 AM EST PATIENT: Al Cali : 1965 DATE OF SERVICE: 03/19/2019 CHIEF COMPLAINT: Chief Complaint Patient presents with Form Completion Patient here for recertification paper work. Subjective HISTORY OF PRESENT ILLNESS: Al Cali is a 53-y.o. male. 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 Current Outpatient Medications Medication Sig acetaminophen (TYLENOL) 325 MG Oral Tab Take 650 mg by mouth EVERY FOUR HOURS NEEDED for Pain or Fever. ARTIFICIAL TEAR OP Place to the external eye NEEDED. atorvastatin (LIPITOR) 80 MG Oral Tab Take 1 Tab by mouth DAILY. baclofen (LIORESAL) 10 MG Oral Tab TAKE ONE TABLET BY MOUTH TWICE A DAY citalopram (CELEXA) 20 MG Oral Tab Take 1 Tab by mouth DAILY. Control Gel Formula Dressing (DUODERM CGF DRESSING) Apply externally Misc 1 Each by Apply externally route EVERY THREE DAYS. docusate sodium (COLACE) 100 MG Oral Cap Take 1 Cap by mouth TWICE DAILY. gabapentin (NEURONTIN) 300 MG Oral Cap Take 1 Cap by mouth THREE TIMES DAILY. Gauze Pads & Dressings (BANDAGE ROLL 3"X75") Does not apply Misc 1 Each by Does not applyroute DAILY. Gauze Pads & Dressings (QC NON-ADHERENT) 3"X4" Does not apply Pads 1 Each by Does not apply route DAILY. hydrochlorothiazide (HCTZ, ORETIC) 25 MG Oral Tab TAKE ONE TABLET BY MOUTH EVERY DAY Incontinence Supply Disposable Does not apply Misc 1 Device by Does not apply route FIVE TIMES DAILY. Extra large size adult incontinence briefs. For Urinary incontinence latanoprost (XALATAN) 0.005 % Ophthalmic Solution Place 1 Drop in both eyes EVERY BEDTIME. Liniments (BLUE-EMU SUPER STRENGTH) Apply externally Cream by Apply externally route TWICE DAILY. magnesium hydroxide (MILK OF MAGNESIA) 400 MG/5ML Oral Suspension Take 30 mL by mouth DAILY NEEDED (Constipation). metoprolol (LOPRESSOR) 25 MG Oral Tab Take 1 Tab by mouth TWICE DAILY. mupirocin (BACTROBAN) 2 % Apply externally Ointment Apply small amount twice daily pxzycknt-ddcepveaam-xyslbtjgx (NEOSPORIN,TRIPLE ANTIBIOTIC) 400-5-5000 Apply externally Ointment Apply to open wound on left lower leg daily . nortriptyline (PAMELOR) 10 MG Oral Cap Take 1 Cap by mouth EVERY BEDTIME. Omeprazole delayed rel cap 20 MG Oral CAPSULE DELAYED RELEASE Take 20 mg by mouth DAILY. oxybutynin (DITROPAN) 5 MG Oral Tab Take 0.5 Tabs by mouth TWICE DAILY. SM ASPIRIN ADULT LOW STRENGTH 81 MG Oral Tab EC TAKE ONE TABLET BY MOUTH EVERY DAY Tamsulosin HCl (FLOMAX) 0.4 MG Oral Cap TAKE ONE CAPSULE BY MOUTH EVERY MORNING topiramate (TOPAMAX) 25 MG Oral Tab Take 4 Tabs by mouth EVERY BEDTIME. No current facility-administered medications for this visit. 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 seizure Social History Socioeconomic History Marital status: Single Spouse name: Not on file Number of children: Not on file Years of education: Not on file Highest education level: Not on file Occupational History Not on file Social Needs Financial resource strain: Not on file Food insecurity Worry: Not on file Inability: Not on file Transportation needs Medical: Not on file Non-medical: Not on file Tobacco Use Smoking status: Former Smoker Smokeless tobacco: Never Used Substance and Sexual Activity Alcohol use: No Alcohol/week: 0.0 standard drinks Drug use: No Sexual activity: Never Lifestyle Physical activity Days per week: Not on file Minutes per session: Not on file Stress: Not on file Relationships Social connections Talks on phone: Not on file Gets together: Not on file Attends pentecostalism service: Not on file Active member of club or organization: Not on file Attends meetings of clubs or organizations: Not on file Relationship status: Not on file Intimate partner violence Fear of current or ex partner: Not on file Emotionally abused: Not on file Physically abused: Not on file Forced sexual activity: Not on file Other Topics Concern Back Care Not Asked Bike Helmet Not Asked Blood Transfusions Not Asked Caffeine Concern No Exercise No Hobby Hazards Not Asked International Travel Not Asked Service Not Asked Occupational Exposure Not Asked Seat Belt Not Asked Self-Exams Not Asked Sleep Concern Not Asked Special Diet Yes Comment: low fat and cholesterol Stress Concern No Weight Concern No Social History Narrative Lives in a single floor home in [place] Supportive mother lives nearby ROS no cardiovascular symptoms Objective PHYSICAL EXAM: VITALS: BP 124/74 | Pulse 74 | Ht 6' (1.829 m) | Wt 251 lb (113.9 kg) | SpO2 96% | BMI 34.04 kg/m Body mass index is 34.04 kg/m. Physical Exam I spent 15 minutes with the patient, greater than half of this time in direct [id number] counseling addressing the current condition and plan of care. ASSESSMENT / IMPRESSION: ICD-9-CM ICD-10-CM 1. Essential hypertension, benign stable. continue current medications 401.1 I10 COMPREHENSIVE METABOLIC PANEL LIPID PROFILE 2. Traumatic brain injury, without loss of consciousness, sequela (HCC) 907.0 [id number] Patient Instructions Blood test today Physical medicine MDs in [place] Dr Humphreys or Dr Delacruz both at [facility] Bobo Hathaway MD 03/19/2019 08:44 documented in this encounter Plan of Treatment Date Type Specialty Care Team Description 09/17/2019 Office Visit Internal Medicine Bobo Hathaway MD [address] [place] [address] [phone] Name Type Priority Associated Diagnoses Date/Time COMPREHENSIVE METABOLIC Lab Routine Essential hypertension, 03/19/2019 8: 30 AM PANEL benign EST LIPID PROFILE Lab Routine Essential hypertension, 03/19/2019 8:30 AM benign EST Health Maintenance Due Date Last Done Comments DTaP/Tdap/Td Vaccines (1 - 07/31/1974 Tdap) ZOSTER IMMUNIZATION SERIES 07/31/2013 (1 of 2) DIABETES SCREENING 02/06/2019 02/06/2018, 09/26/2017, 06/17/2016, Additional history exists LIPID DISORDER SCREENING 02/06/2019 02/06/2018, 07/15/2016, 02/05/2014 DEPRESSION SCREENING 11/16/2021 Postponed from 1975 (Other) Colonoscopy 12/28/2023 12/27/2013 (Previously completed) INFLUENZA VACCINE Completed 12/20/2018, 12/26/2017, 12/09/2016, Additional history exists HEPATITIS A IMMUNIZATION Aged Out No longer eligible SERIES based on patient's age to complete this topic HPV IMMUNIZATION SERIES Aged Out No longer eligible based on patient's age to complete this topic MENINGOCOCCAL VACCINE IMM Aged Out No longer eligible based on patient's age to complete this topic PNEUMOCOCCAL 0-64 YRS Aged Out No longer eligible based on patient's age to complete this topic documented as of this encounter Goals Goal Patient Goal Associated Recent Patient-Stated? Author Type Problems Progress Blood Pressure Blood Pressure 124/74 No Morgan, < 140/90 (03/19/2019 Bobo Monsalve, 8:06 AM EST) Note: Hypertension Care Plan Based on the patient's clinical history and according to JNC 8 guidelines target blood pressure goal is less than 140/90. Based on the patient's last blood pressure of BP: 120/76 mmHg the patient is at at goal. As your provider, it is important that I advise you regarding: your current medications and help you with any challenges you may face taking your medications as directed (ex. instructions, cost, side effects, and interactions). lifestyle changes: medication compliance your clinical goals and how you can achieve success: diet improvements medication management: N/A diet only patient education/self-management tools provided: No To successfully manage my Hypertension I will: monitor my blood pressure daily, understanding that my goal is less than 140/ 90 per my healthcare provider's recommendation. I will schedule an appointment with my provider if consistent abnormal readings greater than 160/100. take medications every day as prescribed by my healthcare provider and if unable to take them I will discuss with my provider. monitor for symptoms of chest pain, chest tightness/pressure, irregular heartbeat, persistent dizziness, radiating arm pain, and neck or jaw pain. If any of these symptoms are noticed I will seek medical attention immediately by calling 911 exercise/walk unable to exercise 0 day(s) per week. If I experience chest pain, chest tightness, or shortness of breath, I will seek medical attention immediately. follow a diet rich in fruits, vegetables, and low-fat dairy products with reduced content of saturated & total fat. I will reduce my sodium intake daily. An example is the DASH diet. To obtain more information please refer to the DASH Eating Plan listed in Educational Resources. record my blood pressure results. [place] is safe and secure way for you to do this in your medical record online. try to obtain an ideal body weight. My recent weight was . My weight loss goal for my next office visit is maintain . limit alcohol consumption. For men two drinks per day and women one drink per day. if currently smoking, will discuss how to quit smoking with my healthcare provider and work towards quitting. Educational Resources: National Heart, Lung, & Blood Cherry Log http://nhlbi.nih.gov/hbp/index.html The DASH Diet Eating Plan http://www.nhlbi.nih.gov/health/health-topics/ topics/dash/ Academy of Nutrition & DIetetics http://eatright.org National Smoking Cessation Site http://smokefree.gov Blood Pressure < Blood Pressure 124/74 (03/19/2019 8:06 No Lisa Cisse FNP 140/90 AM EST) Note: This is an individualized treatment (blood pressure) goal for Al Cali: Displayed above (on the left) is your goal for blood pressure control. Your most recent blood pressure is also shown above, on the right. You should try to achieve blood pressures that are lower than your goal listed above (on the left). Depression screen (PHQ-9) total score < 5 Depression No Lisa Cisse FNP Note: This is an individualized treatment (depression) goal for Al Cali: Displayed above is your goal for a depression screening (PHQ-9) score that would indicate good control of your depression. Keep a regular sleep schedule Lifestyle No Lisa Cisse FNP Note: This is an individualized lifestyle goal for Al Cali: Please maintain a regular sleep schedule. This may help with some symptoms of depression. Weight loss vs. 18 mo Lifestyle 0 (03/19/2019 8:06 AM No Bobo Hathaway MD max (lbs) >= 10 EST) Note: This is an individualized lifestyle goal for Al Cali: Your body mass index (BMI) is more than 30. You should lose weight. A reasonable starting goal is to lose 10 pounds. Displayed above is how many pounds you have lost thus far towards your 10 pound weight loss goal. Take all prescribed medications as Self-management No Lisa Cisse FNP directed Note: This is an individualized self-management goal for Al Cali: Please take all prescribed medications as directed. 1. Do not skip doses. If you cannot afford your medications, talk with your doctor. 2. Use a pill reminder system such as a pill box if needed. Your pharmacist can help you with this. 3. Contact your Pharmacy 5 days before your medication runs out. If you cannot take your medications for any reasons, talk with your doctor. 4. Please bring all of your medication bottles and inhalers (or a list of all your medications/inhalers) with you to every visit. Potential barriers to meeting all of your care plan goals will continue to be addressed on an ongoing basis. documented as of this encounter Results Not on filedocumented in this encounter Visit Diagnoses Diagnosis Essential hypertension, benign Traumatic brain injury, without loss of consciousness, sequela (HCC) documented in this encounter Insurance Payer Benefit Plan / Subscriber ID Effective Dates Phone Address Type Group [place] xxxxxxxx 2016-Present Medicaid [place] MED[place] Guarantor Name Account Type Relation to Date of Phone Billing Patient Address Al Cali Personal/Family [id number] (Home) [place] [phone] [place], [place] ([place]) [id number] documented as of this encounter
--- OUTSIDE RECORDS SUMMARY | 2019-04-15 14:08 | XMS REPORT ---
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 Aphasia Aphasia Diagnosis Active Angelica following following 11-28 Noelle unspecified unspecified [id number] cerebrovasc cerebrovasc ular ular disease disease Chronic Chronic Diagnosis Active Angelica venous venous 11-28 Noelle hypertensio hypertensio [id number] n w/o comp n w/o comp of l low of l low extrem extrem Essential Essential Diagnosis Active Angelica (primary) (primary) 11-28 Noelle hypertensio hypertensio [id number] n n 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-28 Noelle emo def emo def [id number] following following unsp unsp cerebvasc cerebvasc disease disease 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, disorder, 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, recurrent, unspecified unspecified Unspecified Unspecified Diagnosis Active Angelica open-angle open-angle Noelle glaucoma, glaucoma, [id number] stage stage unspecified unspecified Mixed Mixed Diagnosis Active Angelica hyperlipide hyperlipide Noelle lilly lilly [id number] Acquired Acquired Diagnosis Active Angelica absence of absence of Noelle unspecified unspecified [id number] leg above leg above knee knee Thrombotic Thrombotic Diagnosis Active Angelica microangiop microangiop Noelle rehan rehan [id number] Medication knowledge/s Meds Resolve 2015-09-16 Jackie darnell d 2-11 18:04:00 Sinnigen deficit: pt 15:50: [id number] 00 Diagnoses knowledge/s Diagnoses Resolve 2016-03-17 Tammee kill d 2- 15:00:00 Cesar-Hor deficit: pt 15:50: an 00 Diagnoses knowledge/s Diagnoses Resolve 2016-03-17 Tammee kill d 2-11 15:00:00 Cesar-Hor deficit: cg 15:50: an 00 Pain knowledge/s Pain Mgmt Resolve 2015-09-16 Luz Maria kill d 3 18:04:00 Samuels deficit: pt 15:45: [id number] 00 Cardio hypertensio Cardiovasc Resolve 2016-09-08 Luz Maria n ular d 3 21:45:00 Samuels 15:45: [id number] 00 Integument skin Integument Resolve 2015-09-16 Luz Maria integrity d 05-14 18:04:00 Samuels risk 15:45: [id number] 00 Nutrition knowledge/s Nutrition Resolve 2015-12-10 Luz Maria kill d 3 15:20:00 Samuels deficit: pt 15:45: [id number] 00 Elimination constipatio Eliminatio Resolve 2015-09-16 Luz Maria n n d 05-14 18:04:00 Samuels 15:45: [id number] 00 Elimination urinary Eliminatio Resolve 2015-05-15 Luz Maria incontinenc n d 3 15:45:00 Arvind e 15:45: [id number] 00 Activity ADL Activity Resolve 2016-03-17 Luz Maria assistance d 3 15:00:00 Samuels required 15:45: [id number] 00 Safety fall risk Safety Resolve 2015-09-16 Luz Maria factor d 05-14 18:04:00 Samuels present 15:45: [id number] 00 Medication injectable Meds Resolve 2015-09-16 Luz Maria med d 05-14 18:04:00 Arvind assistance 15:45: [id number] required 00 Musculoskel transfer Musculoske Unknown Luz Maria etal assistance letal 05-14 Arvind required 15:45: [id number] 00 Safety knowledge/s Safety Resolve 2015-09-16 Jackie kill d 3-17 18:04:00 [place] deficit: pt 17:45: [id number] 00 Respiratory lung sounds Respirator Resolve 2015-07-16 Luz Maria deficit y d 07-15 18:27:00 Arvind 18:27: [id number] 00 Elimination urinary Eliminatio Resolve 2015-08-15 Luz Maria incontinenc n d 07-15 16:23:00 Samuels e 18:27: [id number] 00 Neuro depressive Neuro/Emot Resolve 2016-03-17 Luz Maria feelings ion d 07-15 15:00:00 Samuels present 18:27: [id number] 00 Elimination urinary Eliminatio Resolve 2015-09-16 Luz Maria incontinenc n d 09-15 18:04:00 Arvind e 18:04: [id number] 00 Elimination urinary Eliminatio Resolve 2015-11-12 Luz Maria incontinenc n d 10-02 16:30:00 Arvind e 15:29: [id number] 00 Cardio edema Cardiovasc Resolve 2016-09-08 Shoshana ular d 10-15 21:45:00 Jerram DAIRY CONSULTANT 15:00: [id number] 00 Sensory impaired Sensory Resolve 2016-03-17 Shoshana verbal d 10-15 15:00:00 Jerram DAIRY CONSULTANT communicati 15:00: [id number] on 00 Elimination recurring Eliminatio Resolve 2015-12-10 Shoshana UTI n d 10-15 15:20:00 Jerram DAIRY CONSULTANT 15:00: [id number] 00 Pain knowledge/s Pain Mgmt Resolve 2015-12-10 Luz Maria kill gretta 11-11 15:20:00 Arvind deficit: pt 16:30: [id number] 00 Cardio hypertensio Cardiovasc Unknown Luz Maria n rory 11-11 Arvind 16:30: [id number] 00 Elimination diarrhea Eliminatio Resolve 2015-12-10 Luz Maria n d 11-11 15:20:00 Arvind 16:30: [id number] 00 Medication oral med Meds Resolve 2016-09-08 Luz Maria assistance d 11-11 21:45:00 Samuels required 16:30: [id number] 00 Medication knowledge/s Meds Resolve 2016-03-17 Luz Maria kill d 8-31 15:00:00 Samuels deficit: pt 16:30: [id number] 00 Elimination urinary Eliminatio Resolve 2015-12-10 Almaz frequency n d 11-12 15:20:00 [place] 15:00: [id number] 00 Elimination urinary Eliminatio Resolve 2015-12-10 Almaz incontinenc n d 11-19 15:20:00 [place] e 14:00: [id number] 00 Safety fall risk Safety Resolve 2016-03-17 Luz Maria factor d 9 15:00:00 Samuels present 15:20: [id number] 00 Nutrition knowledge/s Nutrition Resolve 2015-032016-03-17 Almaz kill d 0 15:00:00 [place] deficit: pt 13:15: [id number] 00 Elimination urinary Eliminatio Resolve 2015-032016-01-07 Luz Maria incontinenc n d 0-20 16:01:00 Arvind e 15:28: [id number] 00 Pain frequent Pain Mgmt Resolve 2015-032018-04-26 Luz Maria pain d 0-26 15:08:00 Samuels 16:01: [id number] 00 Respiratory lung sounds Respirator Resolve 2015-032016-03-17 Luz Maria deficit y d 0-26 15:00:00 Arvind 16:01: [id number] 00 Respiratory dyspnea Respirator Resolve 2016-09-08 Luz Maria present y d 03-17 21:45:00 Arvind 15:00: [id number] 00 Integument pressure Integument Resolve 2018-06-27 Luz Maria ulcer d 03-17 15:00:00 Samuels present 15:00: [id number] 00 Integument skin Integument Resolve 2016-03-17 Luz Maria integrity d 1 15:00:00 Samuels risk 15:00: [id number] 00 Nutrition changing Nutrition Resolve 2016-09-20 Luz Maria weight/appe d 03-17 15:30:00 Arvind tite 15:00: [id number] 00 Nutrition knowledge/s Nutrition Resolve 2016-08-16 Almaz kill d 1-12 15:30:00 [place] deficit: pt 16:10: [id number] 00 Medication knowledge/s Meds Resolve 2016-09-08 Almaz kill d 1-12 21:45:00 [place] deficit: pt 16:10: [id number] 00 Nutrition nutritional Nutrition Resolve 2016-08-16 Luz Maria restriction d 2- 15:30:00 Samuels s 15:30: [id number] 00 Musculoskel transfer Musculoske Unknown Luz Maria etal assistance letal 05-06 Samuels required 15:15: [id number] 00 Musculoskel requires Musculoske Unknown Luz Maria etal human letal 05-06 Samuels assist to 15:15: [id number] leave home 00 Sensory impaired Sensory Resolve 2016-10-06 Stephanie verbal d 3 15:00:00 Haile communicati 15:35: [id number] on 00 Safety fall risk Safety Resolve 2016-08-16 Stephanie factor d 3 15:30:00 Haile present 15:35: [id number] 00 Safety risk for Safety Resolve 2016-08-16 Stephanie hospitaliza d 3 15:30:00 Haile tion 15:35: [id number] 00 Integument stasis Integument Resolve 2016-09-08 Stephanie ulcer d 07-08 21:45:00 Haile present 15:30: [id number] 00 Integument skin Integument Resolve 2016-09-08 Stephanie integrity d 07-08 21:45:00 Haile risk 15:30: [id number] 00 Neuro impaired Neuro/Emot Resolve 2016-10-06 Stephanie decision-ma ion d 08-10 15:00:00 Haile jacinda 16:00: [id number] 00 Safety risk for Safety Resolve 2016-09-08 Stephanie hospitaliza d 6- 21:45:00 Haile tion 16:00: [id number] 00 Musculoskel requires Musculoske Unknown Stephanie etal human letal 08-23 Haile assist to 16:00: [id number] leave home 00 Nutrition nutritional Nutrition Resolve 2016-09-20 Stephanie restriction d 09-06 15:30:00 Haile s 15:20: [id number] 00 Neuro depressive Neuro/Emot Resolve 2018-06-20 Stephanie feelings ion d 09-06 16:00:00 Haile present 15:20: [id number] 00 Safety fall risk Safety Resolve 2016-09-08 Stephanie factor d 09-06 21:45:00 Haile present 15:20: [id number] 00 Musculoskel transfer Musculoske Unknown Stephanie etal assistance letal 09-06 Haile required 15:20: [id number] 00 Pain frequent Pain Mgmt Unknown Stephanie pain 10-01 Haile 15:20: [id number] 00 Cardio edema Cardiovasc Resolve 2017-03-03 Stephanie ular d 10-01 16:22:00 Haile 15:20: [id number] 00 Activity ADL Activity Resolve 2016-10-06 Stephanie assistance d 10-01 15:00:00 Haile required 15:20: [id number] 00 Safety risk for Safety Resolve 2016-10-06 Stephanie hospitaliza d 10-01 15:00:00 Haile tion 15:20: [id number] 00 Musculoskel requires Musculoske Unknown Stephanie etal human letal 10-01 Haile assist to 15:20: [id number] leave home 00 Medication knowledge/s Meds Resolve 2016-10-06 Almaz kill d 10-04 15:00:00 [place] deficit: pt 14:55: [id number] 00 Medication knowledge/s Meds Resolve 2017-03-03 Almaz kill d 10-14 16:22:00 [place] deficit: pt 15:30: [id number] 00 Safety can be left Safety Resolve 2017-03-03 Demetria alone for d 10-21 16:22:00 Lizett only short 15:00: [id number] periods 00 Sensory impaired Sensory Resolve 2017-03-03 Irene verbal d 10-28 16:22:00 Mara majano 16:00: [id number] on 00 Neuro impaired Neuro/Emot Resolve 2017-03-03 Irene decision-ma ion d 10-28 16:22:00 Mara monaco 16:00: [id number] 00 Musculoskel requires Musculoske Unknown Irene etal special letal 10-28 Mara noelat 16:00: [id number] ion 00 Nutrition nutritional Nutrition Resolve 2017-03-03 Bryan restriction d 11-05 16:22:00 Mason RN s 15:28: [id number] 00 Safety fall risk Safety Resolve 2017-03-03 Bryan factor d 11-05 16:22:00 Mason RN present 15:28: [id number] 00 Musculoskel transfer Musculoske Unknown Bryan etal assistance letal 11-05 Mason RN required 15:28: [id number] 00 Respiratory dyspnea Respirator Resolve 2017-03-03 Almaz present y d 11-11 16:22:00 [place] 15:30: [id number] 00 Respiratory lung sounds Respirator Resolve 2016-032017-03-03 Sindhu deficit y d 0-12 16:22:00 Uribe 16:22: [id number] 00 Safety risk for Safety Resolve 2016-032017-03-03 Sindhu hospitaliza d 0-12 16:22:00 Uribe tion 16:22: [id number] 00 Integument pressure Integument Unknown 2016-03 Angelica ulcer 0-23 Farhat present 16:00: [id number] 00 Integument stasis Integument Active 2016-03 Angelica ulcer 0-23 [place] present 16:00: [id number] 00 Integument skin Integument Resolve 2016-032017-03-03 Angelica integrity d 0-23 16:22:00 Farhat risk 16:00: [id number] 00 Elimination urinary Eliminatio Resolve 2016-032017-03-03 Angelica incontinenc n d 04-12 16:22:00 [place] e 17:25: [id number] 00 Elimination constipatio Eliminatio Resolve 2016-032017-03-03 Angelica n n d 04-12 16:22:00 Farhat 17:25: [id number] 00 Integument other wound Integument Resolve 2016-032017-03-03 Angelica present d 2- 16:22:00 [place] 16:22: [id number] 00 Elimination bowel Eliminatio Resolve 2016-032017-03-03 Angelica incontinenc n d 05-04 16:22:00 [place] e 16:22: [id number] 00 Endo/Enrique anti-coagul Endo/Enrique Resolve 2016-032018-06-20 Angelica ation d 05-09 16:00:00 Farhat therapy 16:03: [id number] 00 Elimination urinary Eliminatio Resolve 2016-032017-11-24 Angelica incontinenc n d 05-09 16:55:00 [place] e 16:03: [id number] 00 Elimination bowel Eliminatio Resolve 2016-032017-11-24 Angelica incontinenc n d 05-09 16:55:00 [place] e 16:03: [id number] 00 Respiratory dyspnea Respirator Resolve 2016-032018-03-01 Almaz present y d 05-11 15:31:00 [place] 15:50: [id number] 00 Safety fall risk Safety Resolve 2017-11-24 Sindhu factor d 03-15 16:55:00 Uribe present 16:20: [id number] 00 Safety risk for Safety Resolve 2017-11-24 Sindhu hospitaliza d 03-15 16:55:00 Uribe tion 16:20: [id number] 00 Safety can be left Safety Active Sindhu alone for 03-15 Uribe only short 16:20: [id number] periods 00 24 Hr Diet knowledge/s NT: 24Hr Resolve 2017-04-13 Bia kill Diet d 04-13 17:00:00 [place] deficit - 17:00: [id number] pt 00 24 Hr Diet knowledge/s NT: 24Hr Resolve 2017-04-13 Bia kill Diet d 04-13 17:00:00 [place] deficit - 17:00: [id number] cg 00 Integument skin Integument Resolve 2017-11-24 Angelica integrity d 05-06 16:55:00 [place] risk 16:38: [id number] 00 Neuro impaired Neuro/Emot Active Angelica decision-ma ion 05-06 Farhat monaco 16:38: [id number] 00 Safety cannot be Safety Active Angelica left alone 05-06 [place] 16:38: [id number] 00 Musculoskel requires Musculoske Resolve 2018-06-20 Angelica etal human letal d 05-06 16:00:00 Farhat assist to 16:38: [id number] leave home 00 Musculoskel requires Musculoske Resolve 2018-06-20 Angelica etal special letal d 05-06 16:00:00 [place] transportat 16:38: [id number] ion 00 Musculoskel transfer Musculoske Resolve 2018-06-20 Angelica etal assistance letal d 05-06 16:00:00 [place]hat required 16:38: [id number] 00 Test/Treatm venipunctur Test/Injec Active Angelica ent e ordered t/Fabrice 06-03 Noelle [id number] Elimination constipatio Eliminatio Resolve 2017-11-24 Angelica n n d 06-03 16:55:00 Noelle 19:06: [id number] 00 Neuro confusion Neuro/Emot Active Angelica present ion 06-03 Noelle 19:06: [id number] 00 Medication potential Meds Resolve 2018-06-20 Angelica clinically d 06-03 16:00:00 Noelle significant 19:06: [id number] medication 00 issue Medication oral med Meds Resolve 2018-06-06 Angelica assistance d 06-03 15:00:00 Noelle required 19:06: [id number] 00 Medication knowledge/s Meds Resolve 2018-06-20 Angelica kill d 06-03 16:00:00 Noelle deficit: pt 19:06: [id number] 00 Elimination urinary Eliminatio Resolve 2017-11-24 Angelica urgency n d 09-29 16:55:00 Noelle 15:32: [id number] 00 Elimination urinary Eliminatio Resolve 2017-11-24 Angelica frequency n d 09-29 16:55:00 Noelle 15:32: [id number] 00 Safety risk for Safety Resolve 2018-04-20 Almaz hospitaliza d 9-20 14:59:00 [place] tion 16:31: [id number] 00 Integument skin Integument Resolve 2017-032018-04-20 Angelica integrity d 0-18 14:59:00 Noelle risk 14:11: [id number] 00 Elimination urinary Eliminatio Resolve 2017-032018-12-21 Angelica incontinenc n d 0-18 15:15:00 Noelle e 14:11: [id number] 00 Safety fall risk Safety Resolve 2017-032018-04-20 Angelica factor d 0-18 14:59:00 Noelle present 14:11: [id number] 00 Integument pressure Integument Unknown Angelica ulcer 04-06 Noelle present 14:59: [id number] 00 Integument skin Integument Resolve 2018-06-27 Angelica integrity d 2-13 15:00:00 Noelle risk 15:08: [id number] 00 Elimination recurring Eliminatio Resolve 2018-12-21 Angelica UTI n d 2-13 15:15:00 Noelle 15:08: [id number] 00 Activity ADL Activity Active Angelica assistance 04-26 Noelle required 15:08: [id number] 00 Activity self-care Activity Resolve 2018-11-30 Angelica deficit d 2-13 14:26:00 Noelle 15:08: [id number] 00 Safety risk for Safety Resolve 2018-06-20 Angelica hospitaliza d 2-13 16:00:00 Noelle tion 15:08: [id number] 00 Safety fall risk Safety Resolve 2018-06-20 Angelica factor d 2-13 16:00:00 Noelle present 15:08: [id number] 00 Nutrition knowledge/s Nutrition Active Angelica kill 06-20 Noelle deficit: pt 16:00: [id number] 00 Nutrition nutritional Nutrition Active Angelica restriction 06-20 Noelle s 16:00: [id number] 00 Endo/Enrique anti-coagul Endo/Enrique Active Angelica ation 4-16 Noelle therapy 15:00: [id number] 00 Safety fall risk Safety Active Angelica factor 4-16 Noelle present 15:00: [id number] 00 Safety risk for Safety Active Angelica hospitaliza 4-16 Noelle tion 15:00: [id number] 00 Medication knowledge/s Meds Resolve 2018-08-03 Angelica darnell d 4-16 16:00:00 Noelle deficit: pt 15:00: [id number] 00 Musculoskel transfer Musculoske Unknown Angelica etal assistance letal 06-27 Noelle required 15:00: [id number] 00 Musculoskel requires Musculoske Unknown Angelica etal human letal -16 Noelle assist to 15:00: [id number] leave home 00 Elimination knowledge/s Eliminatio Resolve 2018-12-21 Angelica darnell n d 07-04 15:15:00 Noelle deficit: pt 15:15: [id number] 00 Test/Treatm tests Test/Injec Active Angelica ent ordered t/Fabrice 07-07 Noelle [id number] Musculoskel requires Musculoske Unknown Angelica etal special letal 07-18 Noelle transportat 15:45: [id number] ion 00 Medication knowledge/s Meds Resolve 2018-2018-08-31 Angelica darnell d 08-10 16:53:00 Marianela deficit: pt 15:30: [employer] 00 [id number] Integument skin Integument Active Angelica integrity 08-24 Noelle risk 16:02: [id number] 00 Medication knowledge/s Meds Resolve 2018-09-22 Angelica darnell d 09-07 15:00:00 Marianela deficit: pt 15:30: [employer] 00 [id number] Respiratory dyspnea Respirator Active Angelica present y 11-30 Noelle 14:26: [id number] 00 Sensory impaired Sensory Active Zoila verbal 12-09 [place] communicati 10:20: [id number] on 00 Sensory impaired Sensory Active Zoila hearing 12-09 [place] 10:20: [id number] 00 Activity self-care Activity Active 2018-03 Angelica deficit 0-10 Noelle 15:15: [id number] 00 Elimination urinary Eliminatio Active 2018-03 Angelica incontinenc n 0-17 Noelle e 15:33: [id number] 00 Allergies, Adverse Reactions, Alerts Allergy Name [...] (SIG) Name Name acetaminoph acetaminoph 2017- No [place] 2 tab Unknown en 325 mg en 325 mg 11-28 Bobo MORENO tablet tablet amLODIPine amLODIPine 2016- No [place] 1 tab Unknown 5 mg tablet 5 mg tablet 06-26 05- Bobo MORENO aspirin 81 aspirin 81 No [place] 1 tab Unknown mg mg 6 Bobo MORENO tablet,ivania tablet,ivania yed release yed release atorvastati atorvastati No [place] 1 tab Unknown n 80 mg n 80 mg 06-26 Bobo MORENO tablet tablet baclofen 10 baclofen 10 No [place] 1 tab Unknown mg tablet mg tablet 11-28 Bobo MORENO citalopram citalopram 2016- No [place] 1 tab Unknown 10 mg 10 mg 06-26-20 Bobo MORENO tablet tablet Colace 200 Colace 200 2016- No [place] 1 tab Unknown mg capsule mg capsule 09-21 Bobo MORENO docusate docusate 2015- No [place] 3 cap Unknown sodium 100 sodium 100 11-28 0824 Bobo MORENO mg capsule mg capsule gabapentin gabapentin 2012-03 No [place] 1-2 Cap Unknown 300 mg 300 mg 2- Bobo MORENO capsule capsule guaiFENesin guaiFENesin 2016- No [place] 10 ML Unknown AC 10 AC 10 11-28 Bobo MORENO mg-100 mg/5 mg-100 mg/5 mL oral mL oral liquid liquid HYDROcodone HYDROcodone 2016- No [place] 1 tab Unknown 10 10 11-28 Bobo MORENO mg-acetamin mg-acetamin ophen 325 ophen 325 mg tablet mg tablet latanoprost latanoprost 2018- No [place] 1 drop Unknown 0.005 % eye 0.005 % eye 05-23- Bobo MORENO drops drops metoprolol metoprolol No [place] 1 tab Unknown tartrate 25 tartrate 25 03-25 Bobo MORENO mg tablet mg tablet Milk of Milk of No [place] 30 ML Unknown Magnesia Magnesia 11-28 Bobo MORENO 400 mg/5 mL 400 mg/5 mL oral oral suspension suspension nortriptyli nortriptyli 2016- No [place] 1 Cap Unknown ne 10 mg ne 10 mg 06-26- Bobo MORENO capsule capsule omeprazole omeprazole No [place] 1 Cap Unknown 20 mg 20 mg 11-29 ,Bobo capsule,del capsule,del ayed ayed release release Topamax 100 Topamax 100 2018- No [place] 1 tab Unknown mg tablet mg tablet 11-25 Bobo MORENO Topamax 25 Topamax 25 2018- No [place] 2 tab Unknown mg tablet mg tablet 04-18 Bobo MORENO Tricor 145 Tricor 145 2016- No [place] 1 tab Unknown mg tablet mg tablet 11-28 Bobo MORENO sulfamethox sulfamethox 2015- No [place] one Unknown azole 400 azole 400 09-25 Bobo MORENO tablet mg-trimetho mg-trimetho prim 80 mg prim 80 mg tablet tablet tamsulosin tamsulosin 2017- No [place] one Unknown 0.4 mg 0.4 mg 09-25 Bobo MORENO capsule capsule capsule nitrofurant nitrofurant No [place] 1 Unknown oin oin 8-11 Bobo MORENO monohydrate monohydrate /macrocryst /macrocryst als 100 mg als 100 mg capsule capsule docusate docusate 2016- No [place] 3 cap Unknown sodium 100 sodium 100 11-04 Bobo MORENO mg capsule mg capsule gentamicin gentamicin 2015-03- No [place] 1 drop Unknown 0.3 % eye 0.3 % eye 03-30 ,Bobo drops drops nortriptyli nortriptyli 2018- No [place] 2 Cap Unknown ne 10 mg ne 10 mg 04-28 Bobo MORENO (20 mg) capsule capsule hydroCHLORO hydroCHLORO No [place] 1 Unknown thiazide 25 thiazide 25 06-24 ,Bobo tablet mg tablet mg tablet (25 mg) citalopram citalopram No [place] 1tab Unknown 20 mg 20 mg 07-01 ,Bobo tablet tablet fenofibrate fenofibrate 2016- No [place] 1 Unknown nanocrystal nanocrystal 07-08 Bobo MORENO tablet lized 145 lized 145 (145 mg tablet mg tablet mg) doxycycline doxycycline 2016- No [place] 1 Unknown hyclate 100 hyclate 100 07-09- Bobo MORENO tablet mg tablet mg tablet (100 mg) Colace 100 Colace 100 2016-03- No [place] 3 Unknown mg capsule mg capsule 09-29 Bobo MORENO capsule s fenofibrate fenofibrate 2016-03- No [place] 1 cap Unknown 150 mg 150 mg 03-15 ,Bobo capsule capsule acetaminoph acetaminoph 2018- No [place] 1-2 Unknown en 500 mg en 500 mg 03-15 Bobo MORENO Tablets tablet tablet clindamycin clindamycin 2017- No [place] 150 mg Unknown HCl 150 mg HCl 150 mg 04-04- Bobo MORENO capsule capsule doxycycline doxycycline 2017- No [place] 1 Unknown monohydrate monohydrate 05-17 Bobo MORENO 100 mg 100 mg capsule capsule senna 8.6 senna 8.6 No [place] 1 tab Unknown mg tablet mg tablet 06-03 Bobo MORENO hold for diarrhe a Colace 100 Colace 100 No [place] Unknown Unknown mg capsule mg capsule 09-29 Bobo MORENO tamsulosin tamsulosin No [place] Unknown Unknown 0.4 mg 0.4 mg 09-29 ,Bobo capsule capsule doxycycline doxycycline 2018- No [place] Unknown Unknown 100 mg 100 mg 04-07 [facility]o tablet tablet mupirocin 2 mupirocin 2 2018- No [place] Unknown Unknown % topical % topical 04-07 ,[facility]o ointment ointment mupirocin 2 mupirocin 2 No [place] Unknown Unknown % topical % topical 04-07 ,[facility]o ointment ointment oxybutynin oxybutynin No [place] Unknown Unknown chloride 5 chloride 5 04-07 rthy mg tablet mg tablet Rocio benzonatate benzonatate 2018- No [place] Unknown Unknown 100 mg 100 mg 08-17- ,Bobo capsule capsule azithromyci azithromyci 2018- No [place] Unknown Unknown n 250 mg n 250 mg 09-01 ,Bobo tablet tablet benzonatate benzonatate 2018- No [place] Unknown Unknown 100 mg 100 mg 09-04 ,Bobo capsule capsule topiramate topiramate No [place] Unknown Unknown 25 mg 25 mg 09-22 Bobo tablet tablet Neosporin Neosporin No [place] Unknown Unknown (lenard-segun-po (lenard-segun-po 09-22 MD,Bobo lym) 3.5 lym) 3.5 mg-400 mg-400 unit-5,000 unit-5,000 unit/gram unit/gram top top ointment ointment Tylenol 325 Tylenol 325 No [place] Unknown Unknown mg capsule mg capsule 09-22 MD,Bobo Artificial Artificial No [place] Unknown Unknown Tears Tears 09-22 MD,Bobo Xalatan Xalatan No [place] Unknown Unknown 0.005 % eye 0.005 % eye 09-22 ,Bobo drops drops Blue-emu Blue-emu No [place] Unknown Unknown super super 09-22 ,[facility]o strenth strenth nortriptyli nortriptyli No [place] Unknown Unknown ne 10 mg ne 10 mg 11-16 ,Bobo capsule capsule Vital Signs Vital Name Observation Time Observation Value Comments SYSTOLIC mm[Hg] 2019-04-05 18:10:01 124 mm[Hg] mm[Hg] Method: Sit DIASTOLIC mm[Hg] 2019-04-05 18:10:01 82 mm[Hg] mm[Hg] Method: Sit PULSE 2019-04-05 18:10:01 70 /min /min RESP RATE 2019-04-05 18:10:01 18 /min /min TEMP 2019-04-05 18:10:01 97 [degF] Procedures This patient has no known procedures. Results This patient has no known results.
--- OUTSIDE RECORDS SUMMARY | 2019-04-15 14:08 | XMS REPORT ---
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 Aphasia Aphasia Diagnosis Active Angelica following following 11-28 Noelle unspecified unspecified [id number] cerebrovasc cerebrovasc ular ular disease disease Chronic Chronic Diagnosis Active Angelica venous venous 11-28 Noelle hypertensio hypertensio [id number] n w/o comp n w/o comp of l low of l low extrem extrem Essential Essential Diagnosis Active Angelica (primary) (primary) 11-28 Noelle hypertensio hypertensio [id number] n n 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-28 Noelle emo def emo def [id number] following following unsp unsp cerebvasc cerebvasc disease disease 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, disorder, [id number] recurrent, recurrent, unspecified unspecified Unspecified Unspecified Diagnosis Active Angelica open-angle open-angle Noelle glaucoma, glaucoma, [id number] stage stage unspecified unspecified Mixed Mixed Diagnosis Active Angelica hyperlipide hyperlipide Noelle lilly lilly [id number] Acquired Acquired Diagnosis Active Angelica absence of absence of Noelle unspecified unspecified [id number] leg above leg above knee knee Thrombotic Thrombotic Diagnosis Active Angelica microangiop microangiop Noelle rehan rehan [id number] Medication knowledge/s Meds Resolve 2015-09-16 Jackie darnell d 2-11 18:04:00 Sinnigen deficit: pt 15:50: [id number] 00 Diagnoses knowledge/s Diagnoses Resolve 2016-03-17 Tammee kill d 2- 15:00:00 Cesar-Hor deficit: pt 15:50: an 00 Diagnoses knowledge/s Diagnoses Resolve 2016-03-17 Tammee kill d 2-11 15:00:00 Cesar-Hor deficit: cg 15:50: an 00 Pain knowledge/s Pain Mgmt Resolve 2015-09-16 Luz Maria kill d 3 18:04:00 Samuels deficit: pt 15:45: [id number] 00 Cardio hypertensio Cardiovasc Resolve 2016-09-08 Luz Maria n ular d 3 21:45:00 Samuels 15:45: [id number] 00 Integument skin Integument Resolve 2015-09-16 Luz Maria integrity d 05-14 18:04:00 Samuels risk 15:45: [id number] 00 Nutrition knowledge/s Nutrition Resolve 2015-12-10 Luz Maria kill d 3 15:20:00 Samuels deficit: pt 15:45: [id number] 00 Elimination constipatio Eliminatio Resolve 2015-09-16 Luz Maria n n d 05-14 18:04:00 Samuels 15:45: [id number] 00 Elimination urinary Eliminatio Resolve 2015-05-15 Luz Maria incontinenc n d 3 15:45:00 Arvind e 15:45: [id number] 00 Activity ADL Activity Resolve 2016-03-17 Luz Maria assistance d 3 15:00:00 Samuels required 15:45: [id number] 00 Safety fall risk Safety Resolve 2015-09-16 Luz Maria factor d 05-14 18:04:00 Samuels present 15:45: [id number] 00 Medication injectable Meds Resolve 2015-09-16 Luz Maria med d 05-14 18:04:00 Arvind assistance 15:45: [id number] required 00 Musculoskel transfer Musculoske Unknown Luz Maria etal assistance letal 05-14 Arvind required 15:45: [id number] 00 Safety knowledge/s Safety Resolve 2015-09-16 Jackie kill d 3-17 18:04:00 [place]innigen deficit: pt 17:45: [id number] 00 Respiratory lung sounds Respirator Resolve 2015-07-16 Luz Maria deficit y d 07-15 18:27:00 Arvind 18:27: [id number] 00 Elimination urinary Eliminatio Resolve 2015-08-15 Luz Maria incontinenc n d 07-15 16:23:00 Samuels e 18:27: [id number] 00 Neuro depressive Neuro/Emot Resolve 2016-03-17 Luz Maria feelings ion d 07-15 15:00:00 Samuels present 18:27: [id number] 00 Elimination urinary Eliminatio Resolve 2015-09-16 Luz Maria incontinenc n d 09-15 18:04:00 Arvind e 18:04: [id number] 00 Elimination urinary Eliminatio Resolve 2015-11-12 Luz Maria incontinenc n d 10-02 16:30:00 Arvind e 15:29: [id number] 00 Cardio edema Cardiovasc Resolve 2016-09-08 Shoshana ular d 10-15 21:45:00 Jerram WET [employer] T[employer]ER 15:00: [id number] 00 Sensory impaired Sensory Resolve 2016-03-17 Shoshana verbal d 10-15 15:00:00 Jerram W[employer] communicati 15:00: [id number] on 00 Elimination recurring Eliminatio Resolve 2015-12-10 Shoshana UTI n d 10-15 15:20:00 Jerram WET [employer]OR T[employer]ER 15:00: [id number] 00 Pain knowledge/s Pain Mgmt Resolve 2015-12-10 Luz Maria kill gretta 11-11 15:20:00 Arvind deficit: pt 16:30: [id number] 00 Cardio hypertensio Cardiovasc Unknown Luz Maria n rory 11-11 Arvind 16:30: [id number] 00 Elimination diarrhea Eliminatio Resolve 2015-12-10 Luz Maria n d 11-11 15:20:00 Arvind 16:30: [id number] 00 Medication oral med Meds Resolve 2016-09-08 Luz Maria assistance d 11-11 21:45:00 Samuels required 16:30: [id number] 00 Medication knowledge/s Meds Resolve 2016-03-17 Luz Maria kill d 8-31 15:00:00 Samuels deficit: pt 16:30: [id number] 00 Elimination urinary Eliminatio Resolve 2015-12-10 Almaz frequency n d 11-12 15:20:00 [place] 15:00: [id number] 00 Elimination urinary Eliminatio Resolve 2015-12-10 Almaz incontinenc n d 11-19 15:20:00 [place] e 14:00: [id number] 00 Safety fall risk Safety Resolve 2016-03-17 Luz Maria factor d 9 15:00:00 Samuels present 15:20: [id number] 00 Nutrition knowledge/s Nutrition Resolve 2015-032016-03-17 Almaz kill d 0 15:00:00 [place] deficit: pt 13:15: [id number] 00 Elimination urinary Eliminatio Resolve 2015-032016-01-07 Luz Maria incontinenc n d 0-20 16:01:00 Arvind e 15:28: [id number] 00 Pain frequent Pain Mgmt Resolve 2015-032018-04-26 Luz Maria pain d 0-26 15:08:00 Samuels 16:01: [id number] 00 Respiratory lung sounds Respirator Resolve 2015-032016-03-17 Luz Maria deficit y d 0-26 15:00:00 Arvind 16:01: [id number] 00 Respiratory dyspnea Respirator Resolve 2016-09-08 Luz Maria present y d 03-17 21:45:00 Arvind 15:00: [id number] 00 Integument pressure Integument Resolve 2018-06-27 Luz Maria ulcer d 03-17 15:00:00 Samuels present 15:00: [id number] 00 Integument skin Integument Resolve 2016-03-17 Luz Maria integrity d 1 15:00:00 Samuels risk 15:00: [id number] 00 Nutrition changing Nutrition Resolve 2016-09-20 Luz Maria weight/appe d 03-17 15:30:00 Arvind tite 15:00: [id number] 00 Nutrition knowledge/s Nutrition Resolve 2016-08-16 Almaz kill d 1-12 15:30:00 [place] deficit: pt 16:10: [id number] 00 Medication knowledge/s Meds Resolve 2016-09-08 Almaz kill d 1-12 21:45:00 [place] deficit: pt 16:10: [id number] 00 Nutrition nutritional Nutrition Resolve 2016-08-16 Luz Maria restriction d 2- 15:30:00 Samuels s 15:30: [id number] 00 Musculoskel transfer Musculoske Unknown Luz Maria etal assistance letal 05-06 Samuels required 15:15: [id number] 00 Musculoskel requires Musculoske Unknown Luz Maria etal human letal 05-06 Samuels assist to 15:15: [id number] leave home 00 Sensory impaired Sensory Resolve 2016-10-06 Stephanie verbal d 3 15:00:00 Haile communicati 15:35: [id number] on 00 Safety fall risk Safety Resolve 2016-08-16 Stephanie factor d 3 15:30:00 Haile present 15:35: [id number] 00 Safety risk for Safety Resolve 2016-08-16 Stephanie hospitaliza d 3 15:30:00 Haile tion 15:35: [id number] 00 Integument stasis Integument Resolve 2016-09-08 Stephanie ulcer d 07-08 21:45:00 Haile present 15:30: [id number] 00 Integument skin Integument Resolve 2016-09-08 Stephanie integrity d 07-08 21:45:00 Haile risk 15:30: [id number] 00 Neuro impaired Neuro/Emot Resolve 2016-10-06 Stephanie decision-ma ion d 08-10 15:00:00 Haile jacinda 16:00: [id number] 00 Safety risk for Safety Resolve 2016-09-08 Stephanie hospitaliza d 6- 21:45:00 Haile tion 16:00: [id number] 00 Musculoskel requires Musculoske Unknown Stephanie etal human letal 08-23 Haile assist to 16:00: [id number] leave home 00 Nutrition nutritional Nutrition Resolve 2016-09-20 Stephanie restriction d 09-06 15:30:00 Haile s 15:20: [id number] 00 Neuro depressive Neuro/Emot Resolve 2018-06-20 Stephanie feelings ion d 09-06 16:00:00 Haile present 15:20: [id number] 00 Safety fall risk Safety Resolve 2016-09-08 Stephanie factor d 09-06 21:45:00 Haile present 15:20: [id number] 00 Musculoskel transfer Musculoske Unknown Stephanie etal assistance letal 09-06 Haile required 15:20: [id number] 00 Pain frequent Pain Mgmt Unknown Stephanie pain 10-01 Haile 15:20: [id number] 00 Cardio edema Cardiovasc Resolve 2017-03-03 Stephanie ular d 10-01 16:22:00 Haile 15:20: [id number] 00 Activity ADL Activity Resolve 2016-10-06 Stephanie assistance d 10-01 15:00:00 Haile required 15:20: [id number] 00 Safety risk for Safety Resolve 2016-10-06 Stephanie hospitaliza d 10-01 15:00:00 Haile tion 15:20: [id number] 00 Musculoskel requires Musculoske Unknown Stephanie etal human letal 10-01 Haile assist to 15:20: [id number] leave home 00 Medication knowledge/s Meds Resolve 2016-10-06 Almaz kill d 10-04 15:00:00 [place] deficit: pt 14:55: [id number] 00 Medication knowledge/s Meds Resolve 2017-03-03 Almaz kill d 10-14 16:22:00 [place] deficit: pt 15:30: [id number] 00 Safety can be left Safety Resolve 2017-03-03 Demetria alone for d 10-21 16:22:00 Lizett only short 15:00: [id number] periods 00 Sensory impaired Sensory Resolve 2017-03-03 Irene verbal d 10-28 16:22:00 Mara majano 16:00: [id number] on 00 Neuro impaired Neuro/Emot Resolve 2017-03-03 Irene decision-ma ion d 10-28 16:22:00 Mara monaco 16:00: [id number] 00 Musculoskel requires Musculoske Unknown Irene etal special letal 10-28 Mara noelat 16:00: [id number] ion 00 Nutrition nutritional Nutrition Resolve 2017-03-03 Bryan restriction d 11-05 16:22:00 Mason RN s 15:28: [id number] 00 Safety fall risk Safety Resolve 2017-03-03 Bryan factor d 11-05 16:22:00 Mason RN present 15:28: [id number] 00 Musculoskel transfer Musculoske Unknown Bryan etal assistance letal 11-05 Mason RN required 15:28: [id number] 00 Respiratory dyspnea Respirator Resolve 2017-03-03 Almaz present y d 11-11 16:22:00 [place] 15:30: [id number] 00 Respiratory lung sounds Respirator Resolve 2016-032017-03-03 Sindhu deficit y d 0-12 16:22:00 Uribe 16:22: [id number] 00 Safety risk for Safety Resolve 2016-032017-03-03 Sindhu hospitaliza d 0-12 16:22:00 Uribe tion 16:22: [id number] 00 Integument pressure Integument Unknown 2016-03 Angelica ulcer 0-23 Farhat present 16:00: [id number] 00 Integument stasis Integument Active 2016-03 Angelica ulcer 0-23 [place] present 16:00: [id number] 00 Integument skin Integument Resolve 2016-032017-03-03 Angelica integrity d 0-23 16:22:00 Farhat risk 16:00: [id number] 00 Elimination urinary Eliminatio Resolve 2016-032017-03-03 Angelica incontinenc n d 04-12 16:22:00 [place] e 17:25: [id number] 00 Elimination constipatio Eliminatio Resolve 2016-032017-03-03 Angelica n n d 04-12 16:22:00 [place]hat 17:25: [id number] 00 Integument other wound Integument Resolve 2016-032017-03-03 Angelica present d 2- 16:22:00 [place] 16:22: [id number] 00 Elimination bowel Eliminatio Resolve 2016-032017-03-03 Angelica incontinenc n d 05-04 16:22:00 [place] e 16:22: [id number] 00 Endo/Enrique anti-coagul Endo/Enrique Resolve 2016-032018-06-20 Angelica ation d 05-09 16:00:00 Farhat therapy 16:03: [id number] 00 Elimination urinary Eliminatio Resolve 2016-032017-11-24 Angelica incontinenc n d 05-09 16:55:00 [place] e 16:03: [id number] 00 Elimination bowel Eliminatio Resolve 2016-032017-11-24 Angelica incontinenc n d 05-09 16:55:00 [place] e 16:03: [id number] 00 Respiratory dyspnea Respirator Resolve 2016-032018-03-01 Almaz present y d 05-11 15:31:00 [place] 15:50: [id number] 00 Safety fall risk Safety Resolve 2017-11-24 Sindhu factor d 03-15 16:55:00 [place] present 16:20: [id number] 00 Safety risk for Safety Resolve 2017-11-24 Sindhu hospitaliza d 03-15 16:55:00 [place]ribe tion 16:20: [id number] 00 Safety can be left Safety Active Sindhu alone for 03-15 Uribe only short 16:20: [id number] periods 00 24 Hr Diet knowledge/s NT: 24Hr Resolve 2017-04-13 Bia kill Diet d 04-13 17:00:00 [place] deficit - 17:00: [id number] pt 00 24 Hr Diet knowledge/s NT: 24Hr Resolve 2017-04-13 Bia kill Diet d 04-13 17:00:00 [place] deficit - 17:00: [id number] cg 00 Integument skin Integument Resolve 2017-11-24 Angelica integrity d 05-06 16:55:00 [place] risk 16:38: [id number] 00 Neuro impaired Neuro/Emot Active Angelica decision-ma ion 05-06 Farhat monaco 16:38: [id number] 00 Safety cannot be Safety Active Angelica left alone 05-06 [place] 16:38: [id number] 00 Musculoskel requires Musculoske Resolve 2018-06-20 Angelica etal human letal d 05-06 16:00:00 [place]hat assist to 16:38: [id number] leave home 00 Musculoskel requires Musculoske Resolve 2018-06-20 Angelica etal special letal d 05-06 16:00:00 [place] transportat 16:38: [id number] ion 00 Musculoskel transfer Musculoske Resolve 2018-06-20 Angelica etal assistance letal d 05-06 16:00:00 [place]hat required 16:38: [id number] 00 Test/Treatm venipunctur Test/Injec Active Angelica ent e ordered t/Fabrice 06-03 Noelle [id number] Elimination constipatio Eliminatio Resolve 2017-11-24 Angelica n n d 06-03 16:55:00 Noelle 19:06: [id number] 00 Neuro confusion Neuro/Emot Active Angelica present ion 06-03 Noelle 19:06: [id number] 00 Medication potential Meds Resolve 2018-06-20 Angelica clinically d 06-03 16:00:00 Noelle significant 19:06: [id number] medication 00 issue Medication oral med Meds Resolve 2018-06-06 Angelica assistance d 06-03 15:00:00 Noelle required 19:06: [id number] 00 Medication knowledge/s Meds Resolve 2018-06-20 Angelica kill d 06-03 16:00:00 Noelle deficit: pt 19:06: [id number] 00 Elimination urinary Eliminatio Resolve 2017-11-24 Angelica urgency n d 09-29 16:55:00 Noelle 15:32: [id number] 00 Elimination urinary Eliminatio Resolve 2017-11-24 Angelica frequency n d 09-29 16:55:00 Noelle 15:32: [id number] 00 Safety risk for Safety Resolve 2018-04-20 Almaz hospitaliza d 9-20 14:59:00 [place] tion 16:31: [id number] 00 Integument skin Integument Resolve 2017-032018-04-20 Angelica integrity d 0-18 14:59:00 Noelle risk 14:11: [id number] 00 Elimination urinary Eliminatio Resolve 2017-032018-12-21 Angelica incontinenc n d 0-18 15:15:00 Noelle e 14:11: [id number] 00 Safety fall risk Safety Resolve 2017-032018-04-20 Angelica factor d 0-18 14:59:00 Noelle present 14:11: [id number] 00 Integument pressure Integument Unknown Angelica ulcer 04-06 Noelle present 14:59: [id number] 00 Integument skin Integument Resolve 2018-06-27 Angelica integrity d 2-13 15:00:00 Noelle risk 15:08: [id number] 00 Elimination recurring Eliminatio Resolve 2018-12-21 Angelica UTI n d 2-13 15:15:00 Noelle 15:08: [id number] 00 Activity ADL Activity Active Angelica assistance 04-26 Noelle required 15:08: [id number] 00 Activity self-care Activity Resolve 2018-11-30 Angelica deficit d 2-13 14:26:00 Noelle 15:08: [id number] 00 Safety risk for Safety Resolve 2018-06-20 Angelica hospitaliza d 2-13 16:00:00 Noelle tion 15:08: [id number] 00 Safety fall risk Safety Resolve 2018-06-20 Angelica factor d 2-13 16:00:00 Noelle present 15:08: [id number] 00 Nutrition knowledge/s Nutrition Active Angelica kill 06-20 Noelle deficit: pt 16:00: [id number] 00 Nutrition nutritional Nutrition Active Angelica restriction 06-20 Noelle s 16:00: [id number] 00 Endo/Enrique anti-coagul Endo/Enrique Active Angelica ation 4-16 Noelle therapy 15:00: [id number] 00 Safety fall risk Safety Active Angelica factor 4-16 Noelle present 15:00: [id number] 00 Safety risk for Safety Active Angelica hospitaliza 4-16 Noelle tion 15:00: [id number] 00 Medication knowledge/s Meds Resolve 2018-08-03 Angelica darnell d 4-16 16:00:00 Noelle deficit: pt 15:00: [id number] 00 Musculoskel transfer Musculoske Unknown Angelica etal assistance letal 06-27 Noelle required 15:00: [id number] 00 Musculoskel requires Musculoske Unknown Angelica etal human letal -16 Noelle assist to 15:00: [id number] leave home 00 Elimination knowledge/s Eliminatio Resolve 2018-12-21 Angelica darnell n d 07-04 15:15:00 Noelle deficit: pt 15:15: [id number] 00 Test/Treatm tests Test/Injec Active Angelica ent ordered t/Fabrice 07-07 Noelle [id number] Musculoskel requires Musculoske Unknown Angelica etal special letal 07-18 Noelle transportat 15:45: [id number] ion 00 Medication knowledge/s Meds Resolve 2018-2018-08-31 Angelica darnell d 08-10 16:53:00 Marianela deficit: pt 15:30: [employer] 00 [id number] Integument skin Integument Active Angelica integrity 08-24 Noelle risk 16:02: [id number] 00 Medication knowledge/s Meds Resolve 2018-09-22 Angelica darnell d 09-07 15:00:00 Marianela deficit: pt 15:30: [employer] 00 [id number] Respiratory dyspnea Respirator Active Angelica present y 11-30 Noelle 14:26: [id number] 00 Sensory impaired Sensory Active Zoila verbal 12-09 [place] communicati 10:20: [id number] on 00 Sensory impaired Sensory Active Zoila hearing 12-09 [place] 10:20: [id number] 00 Activity self-care Activity Active 2018-03 Angelica deficit 0-10 Noelle 15:15: [id number] 00 Elimination urinary Eliminatio Active 2018-03 Angelica incontinenc n 0-17 Noelle e 15:33: [id number] 00 Allergies, Adverse Reactions, Alerts Allergy Name [...] (SIG) Name Name acetaminoph acetaminoph 2017- [place] 2 tab Unknown en 325 mg en 325 mg 11-28 Bobo MORENO tablet tablet amLODIPine amLODIPine 2016- [place] 1 tab Unknown 5 mg tablet 5 mg tablet 06-26 05- Bobo MORENO aspirin 81 aspirin 81 [place] 1 tab Unknown mg mg 6 Bobo MORENO tablet,ivania tablet,ivania yed release yed release atorvastati atorvastati [place] 1 tab Unknown n 80 mg n 80 mg 06-26 Bobo MORENO tablet tablet baclofen 10 baclofen 10 [place] 1 tab Unknown mg tablet mg tablet 11-28 Bobo MORENO citalopram citalopram 2016- [place] 1 tab Unknown 10 mg 10 mg 06-26-20 Bobo MORENO tablet tablet Colace 200 Colace 200 2016- [place] 1 tab Unknown mg capsule mg capsule 09-21 Bobo MORENO docusate docusate 2015- [place] 3 cap Unknown sodium 100 sodium 100 11-28 0824 Bobo MORENO mg capsule mg capsule gabapentin gabapentin 2012-03 [place] 1-2 Cap Unknown 300 mg 300 mg 2- Bobo MORENO capsule capsule guaiFENesin guaiFENesin 2016- [place] 10 ML Unknown AC 10 AC 10 11-28 Bobo MORENO mg-100 mg/5 mg-100 mg/5 mL oral mL oral liquid liquid HYDROcodone HYDROcodone 2016- [place] 1 tab Unknown 10 10 11-28 Bobo MORENO mg-acetamin mg-acetamin ophen 325 ophen 325 mg tablet mg tablet latanoprost latanoprost 2018- [place] 1 drop Unknown 0.005 % eye 0.005 % eye 05-23- Bobo MORENO drops drops metoprolol metoprolol [place] 1 tab Unknown tartrate 25 tartrate 25 03-25 Bobo MORENO mg tablet mg tablet Milk of Milk of No [place] 30 ML Unknown Magnesia Magnesia 11-28 Bobo MORENO 400 mg/5 mL 400 mg/5 mL oral oral suspension suspension nortriptyli nortriptyli 2016- No [place] 1 Cap Unknown ne 10 mg ne 10 mg 06-26- Bobo MORENO capsule capsule omeprazole omeprazole No [place] 1 Cap Unknown 20 mg 20 mg 11-29 ,Bobo capsule,del capsule,del ayed ayed release release Topamax 100 Topamax 100 2018- [place] 1 tab Unknown mg tablet mg tablet 11-25 Bobo MORENO Topamax 25 Topamax 25 2018- [place] 2 tab Unknown mg tablet mg tablet 04-18 Bobo MORENO Tricor 145 Tricor 145 2016- [place] 1 tab Unknown mg tablet mg tablet 11-28 Bobo MORENO sulfamethox sulfamethox 2015- No [place] one Unknown azole 400 azole 400 09-25 Bobo MORENO tablet mg-trimetho mg-trimetho prim 80 mg prim 80 mg tablet tablet tamsulosin tamsulosin 2017- [place] one Unknown 0.4 mg 0.4 mg 09-25 Bobo MORENO capsule capsule capsule nitrofurant nitrofurant No [place] 1 Unknown oin oin 8-11 Bobo MORENO monohydrate monohydrate /macrocryst /macrocryst als 100 mg als 100 mg capsule capsule docusate docusate 2016- No [place] 3 cap Unknown sodium 100 sodium 100 11-04 Bobo MORENO mg capsule mg capsule gentamicin gentamicin 2015-03- [place] 1 drop Unknown 0.3 % eye 0.3 % eye 03-30 ,Bobo drops drops nortriptyli nortriptyli 2018- No [place] 2 Cap Unknown ne 10 mg ne 10 mg 04-28 Bobo MORENO (20 mg) capsule capsule hydroCHLORO hydroCHLORO No [place] 1 Unknown thiazide 25 thiazide 25 06-24 ,Bobo tablet mg tablet mg tablet (25 mg) citalopram citalopram [place] 1tab Unknown 20 mg 20 mg 07-01 ,Bobo tablet tablet fenofibrate fenofibrate 2016- [place] 1 Unknown nanocrystal nanocrystal 07-08 Bobo MORENO tablet lized 145 lized 145 (145 mg tablet mg tablet mg) doxycycline doxycycline 2016- [place] 1 Unknown hyclate 100 hyclate 100 07-09- Bobo MORENO tablet mg tablet mg tablet (100 mg) Colace 100 Colace 100 2016-03- [place] 3 Unknown mg capsule mg capsule 09-29 Bobo MORENO capsule s fenofibrate fenofibrate 2016-03- [place] 1 cap Unknown 150 mg 150 mg 03-15 ,Bobo capsule capsule acetaminoph acetaminoph 2018- No [place] 1-2 Unknown en 500 mg en 500 mg 03-15 Bobo MORENO Tablets tablet tablet clindamycin clindamycin 2017- [place] 150 mg Unknown HCl 150 mg HCl 150 mg 04-04- Bobo MORENO capsule capsule doxycycline doxycycline 2017- No [place] 1 Unknown monohydrate monohydrate 05-17 Bobo MORENO 100 mg 100 mg capsule capsule senna 8.6 senna 8.6 [place] 1 tab Unknown mg tablet mg tablet 06-03 Bobo MORENO hold for diarrhe a Colace 100 Colace 100 [place] Unknown Unknown mg capsule mg capsule 09-29 Bobo MORENO tamsulosin tamsulosin [place] Unknown Unknown 0.4 mg 0.4 mg 09-29 ,Bobo capsule capsule doxycycline doxycycline 2018- No [place] Unknown Unknown 100 mg 100 mg 04-07 Bobo tablet tablet mupirocin 2 mupirocin 2 2018- No [place] Unknown Unknown % topical % topical 04-07 ,Bobo ointment ointment mupirocin 2 mupirocin 2 [place] Unknown Unknown % topical % topical 04-07 ,Bobo ointment ointment oxybutynin oxybutynin No [place] Unknown Unknown chloride 5 chloride 5 04-07 rthy mg tablet mg tablet Rocio benzonatate benzonatate 2018- [place] Unknown Unknown 100 mg 100 mg 08-17- ,Bobo capsule capsule azithromyci azithromyci 2018- [place] Unknown Unknown n 250 mg n 250 mg 09-01 ,Bobo tablet tablet benzonatate benzonatate 2018- No [place] Unknown Unknown 100 mg 100 mg 09-04 ,Bobo capsule capsule topiramate topiramate No [place] Unknown Unknown 25 mg 25 mg 09-22 Bobo tablet tablet Neosporin Neosporin No [place] Unknown Unknown (lenard-segun-po (lenard-segun-po 09-22 MD,Bobo lym) 3.5 lym) 3.5 mg-400 mg-400 unit-5,000 unit-5,000 unit/gram unit/gram top top ointment ointment Tylenol 325 Tylenol 325 No [place] Unknown Unknown mg capsule mg capsule 09-22 MD,Bobo Artificial Artificial No [place] Unknown Unknown Tears Tears 09-22 MD,Bobo Xalatan Xalatan No [place] Unknown Unknown 0.005 % eye 0.005 % eye 09-22 ,Bobo drops drops Blue-emu Blue-emu No [place] Unknown Unknown super super 09-22 ,Bobo strenth strenth nortriptyli nortriptyli No [place] Unknown Unknown ne 10 mg ne 10 mg 11-16 ,Bobo capsule capsule Vital Signs Vital Name Observation Time Observation Value Comments SYSTOLIC mm[Hg] 2019-03-29 18:09:54 120 mm[Hg] mm[Hg] Method: Sit DIASTOLIC mm[Hg] 2019-03-29 18:09:54 78 mm[Hg] mm[Hg] Method: Sit PULSE 2019-03-29 18:09:54 63 /min /min RESP RATE 2019-03-29 18:09:54 18 /min /min TEMP 2019-03-29 18:09:54 98.2 [degF] Procedures This patient has no known procedures. Results This patient has no known results.
--- OUTSIDE RECORDS SUMMARY | 2019-04-15 14:08 | XMS REPORT ---
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 Chronic Chronic Diagnosis Active Angelica venous venous 11-28 Noelle hypertensio hypertensio [id number] n w/o comp n w/o comp of l low of l low extrem extrem Essential Essential Diagnosis Active Angelica (primary) (primary) 11-28 Noelle hypertensio hypertensio [id number] n n 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-28 Noelle emo def emo def [id number] following following unsp unsp cerebvasc cerebvasc disease disease 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, disorder, 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, recurrent, unspecified unspecified Unspecified Unspecified Diagnosis Active Angelica open-angle open-angle Noelle glaucoma, glaucoma, [id number] stage stage unspecified unspecified Mixed Mixed Diagnosis Active Angelica hyperlipide hyperlipide Noelle lilly lilly [id number] Acquired Acquired Diagnosis Active Angelica absence of absence of Noelle unspecified unspecified [id number] leg above leg above knee knee Thrombotic Thrombotic Diagnosis Active Angelica microangiop microangiop Noelle rehan rehan [id number] Medication knowledge/s Meds Resolve 2015-09-16 Jackie darnell d 2-11 18:04:00 Sinnigen deficit: pt 15:50: [id number] 00 Diagnoses knowledge/s Diagnoses Resolve 2016-03-17 Tammee kill d 2- 15:00:00 Cesar-Hor deficit: pt 15:50: an 00 Diagnoses knowledge/s Diagnoses Resolve 2016-03-17 Tammee kill d 2-11 15:00:00 Cesar-Hor deficit: cg 15:50: an 00 Pain knowledge/s Pain Mgmt Resolve 2015-09-16 Luz Maria kill d 3 18:04:00 Samuels deficit: pt 15:45: [id number] 00 Cardio hypertensio Cardiovasc Resolve 2016-09-08 Luz Maria n ular d 3 21:45:00 Samuels 15:45: [id number] 00 Integument skin Integument Resolve 2015-09-16 Luz Maria integrity d 05-14 18:04:00 Samuels risk 15:45: [id number] 00 Nutrition knowledge/s Nutrition Resolve 2015-12-10 Luz Maria kill d 3 15:20:00 Samuels deficit: pt 15:45: [id number] 00 Elimination constipatio Eliminatio Resolve 2015-09-16 Luz Maria n n d 05-14 18:04:00 Samuels 15:45: [id number] 00 Elimination urinary Eliminatio Resolve 2015-05-15 Luz Maria incontinenc n d 3 15:45:00 Arvind e 15:45: [id number] 00 Activity ADL Activity Resolve 2016-03-17 Luz Maria assistance d 3 15:00:00 Samuels required 15:45: [id number] 00 Safety fall risk Safety Resolve 2015-09-16 Luz Maria factor d 05-14 18:04:00 Samuels present 15:45: [id number] 00 Medication injectable Meds Resolve 2015-09-16 Luz Maria med d 05-14 18:04:00 Arvind assistance 15:45: [id number] required 00 Musculoskel transfer Musculoske Unknown Luz Maria etal assistance letal 05-14 Arvind required 15:45: [id number] 00 Safety knowledge/s Safety Resolve 2015-09-16 Jackie kill d 3-17 18:04:00 [place] deficit: pt 17:45: [id number] 00 Respiratory lung sounds Respirator Resolve 2015-07-16 Luz Maria deficit y d 07-15 18:27:00 Arvind 18:27: [id number] 00 Elimination urinary Eliminatio Resolve 2015-08-15 Luz Maria incontinenc n d 07-15 16:23:00 Samuels e 18:27: [id number] 00 Neuro depressive Neuro/Emot Resolve 2016-03-17 Luz Maria feelings ion d 07-15 15:00:00 Samuels present 18:27: [id number] 00 Elimination urinary Eliminatio Resolve 2015-09-16 Luz Maria incontinenc n d 09-15 18:04:00 Arvind e 18:04: [id number] 00 Elimination urinary Eliminatio Resolve 2015-11-12 Luz Maria incontinenc n d 10-02 16:30:00 Arvind e 15:29: [id number] 00 Cardio edema Cardiovasc Resolve 2016-09-08 Shoshana ular d 10-15 21:45:00 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 15:00: [id number] 00 Sensory impaired Sensory Resolve 2016-03-17 Shoshana verbal d 10-15 15:00:00 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 communicati 15:00: [id number] on 00 Elimination recurring Eliminatio Resolve 2015-12-10 Shoshana UTI n d 10-15 15:20:00 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 15:00: [id number] Pain knowledge/s Pain Mgmt Resolve 2015-12-10 Luz Maria kill gretta 11-11 15:20:00 Arvind deficit: pt 16:30: [id number] 00 Cardio hypertensio Cardiovasc Unknown Luz Maria n rory 11-11 Arvind 16:30: [id number] 00 Elimination diarrhea Eliminatio Resolve 2015-12-10 Luz Maria n d 11-11 15:20:00 Arvind 16:30: [id number] 00 Medication oral med Meds Resolve 2016-09-08 Luz Maria assistance d 11-11 21:45:00 Samuels required 16:30: [id number] 00 Medication knowledge/s Meds Resolve 2016-03-17 Luz Maria kill d 8-31 15:00:00 Samuels deficit: pt 16:30: [id number] 00 Elimination urinary Eliminatio Resolve 2015-12-10 Almaz frequency n d 11-12 15:20:00 [place] 15:00: [id number] 00 Elimination urinary Eliminatio Resolve 2015-12-10 Almaz incontinenc n d 11-19 15:20:00 [place] e 14:00: [id number] 00 Safety fall risk Safety Resolve 2016-03-17 Luz Maria factor d 9 15:00:00 Samuels present 15:20: [id number] 00 Nutrition knowledge/s Nutrition Resolve 2015-032016-03-17 Almaz kill d 0 15:00:00 [place] deficit: pt 13:15: [id number] 00 Elimination urinary Eliminatio Resolve 2015-032016-01-07 Luz Maria incontinenc n d 0-20 16:01:00 Arvind e 15:28: [id number] 00 Pain frequent Pain Mgmt Resolve 2015-032018-04-26 Luz Maria pain d 0-26 15:08:00 Samuels 16:01: [id number] 00 Respiratory lung sounds Respirator Resolve 2015-032016-03-17 Luz Maria deficit y d 0-26 15:00:00 Arvind 16:01: [id number] 00 Respiratory dyspnea Respirator Resolve 2016-09-08 Luz Maria present y d 03-17 21:45:00 Arvind 15:00: [id number] 00 Integument pressure Integument Resolve 2018-06-27 Luz Maria ulcer d 03-17 15:00:00 Samuels present 15:00: [id number] 00 Integument skin Integument Resolve 2016-03-17 Luz Maria integrity d 1 15:00:00 Samuels risk 15:00: [id number] 00 Nutrition changing Nutrition Resolve 2016-09-20 Luz Maria weight/appe d 03-17 15:30:00 Arvind tite 15:00: [id number] 00 Nutrition knowledge/s Nutrition Resolve 2016-08-16 Almaz kill d 1-12 15:30:00 [place] deficit: pt 16:10: [id number] 00 Medication knowledge/s Meds Resolve 2016-09-08 Almaz kill d 1-12 21:45:00 [place] deficit: pt 16:10: [id number] 00 Nutrition nutritional Nutrition Resolve 2016-08-16 Luz Maria restriction d 2- 15:30:00 Samuels s 15:30: [id number] 00 Musculoskel transfer Musculoske Unknown Luz Maria etal assistance letal 05-06 Samuels required 15:15: [id number] 00 Musculoskel requires Musculoske Unknown Luz Maria etal human letal 05-06 Samuels assist to 15:15: [id number] leave home 00 Sensory impaired Sensory Resolve 2016-10-06 Stephanie verbal d 3 15:00:00 Haile communicati 15:35: [id number] on 00 Safety fall risk Safety Resolve 2016-08-16 Stephanie factor d 3 15:30:00 Haile present 15:35: [id number] 00 Safety risk for Safety Resolve 2016-08-16 Stephanie hospitaliza d 3 15:30:00 Haile tion 15:35: [id number] 00 Integument stasis Integument Resolve 2016-09-08 Stephanie ulcer d 07-08 21:45:00 Haile present 15:30: [id number] 00 Integument skin Integument Resolve 2016-09-08 Stephanie integrity d 07-08 21:45:00 Haile risk 15:30: [id number] 00 Neuro impaired Neuro/Emot Resolve 2016-10-06 Stephanie decision-ma ion d 08-10 15:00:00 Haile jacinda 16:00: [id number] 00 Safety risk for Safety Resolve 2016-09-08 Stephanie hospitaliza d 6- 21:45:00 Haile tion 16:00: [id number] 00 Musculoskel requires Musculoske Unknown Stephanie etal human letal 08-23 Haile assist to 16:00: [id number] leave home 00 Nutrition nutritional Nutrition Resolve 2016-09-20 Stephanie restriction d 09-06 15:30:00 Haile s 15:20: [id number] 00 Neuro depressive Neuro/Emot Resolve 2018-06-20 Stephanie feelings ion d 09-06 16:00:00 Haile present 15:20: [id number] 00 Safety fall risk Safety Resolve 2016-09-08 Stephanie factor d 09-06 21:45:00 Haile present 15:20: [id number] 00 Musculoskel transfer Musculoske Unknown Stephanie etal assistance letal 09-06 Haile required 15:20: [id number] 00 Pain frequent Pain Mgmt Unknown Stephanie pain 10-01 Haile 15:20: [id number] 00 Cardio edema Cardiovasc Resolve 2017-03-03 Stephanie ular d 10-01 16:22:00 Haile 15:20: [id number] 00 Activity ADL Activity Resolve 2016-10-06 Stephanie assistance d 10-01 15:00:00 Haile required 15:20: [id number] 00 Safety risk for Safety Resolve 2016-10-06 Stephanie hospitaliza d 10-01 15:00:00 Haile tion 15:20: [id number] 00 Musculoskel requires Musculoske Unknown Stephanie etal human letal 10-01 Haile assist to 15:20: [id number] leave home 00 Medication knowledge/s Meds Resolve 2016-10-06 Almaz kill d 10-04 15:00:00 [place] deficit: pt 14:55: [id number] 00 Medication knowledge/s Meds Resolve 2017-03-03 Almaz kill d 10-14 16:22:00 [place] deficit: pt 15:30: [id number] 00 Safety can be left Safety Resolve 2017-03-03 Demetria alone for d 10-21 16:22:00 Lizett only short 15:00: [id number] periods 00 Sensory impaired Sensory Resolve 2017-03-03 Irene verbal d 10-28 16:22:00 Mara majano 16:00: [id number] on 00 Neuro impaired Neuro/Emot Resolve 2017-03-03 Irene decision-ma ion d 10-28 16:22:00 Mara monaco 16:00: [id number] 00 Musculoskel requires Musculoske Unknown Irene etal special letal 10-28 Mara noelat 16:00: [id number] ion 00 Nutrition nutritional Nutrition Resolve 2017-03-03 Bryan restriction d 11-05 16:22:00 Mason RN s 15:28: [id number] 00 Safety fall risk Safety Resolve 2017-03-03 Bryan factor d 11-05 16:22:00 Mason RN present 15:28: [id number] 00 Musculoskel transfer Musculoske Unknown Bryan etal assistance letal 11-05 Mason RN required 15:28: [id number] 00 Respiratory dyspnea Respirator Resolve 2017-03-03 Almaz present y d 11-11 16:22:00 [place] 15:30: [id number] 00 Respiratory lung sounds Respirator Resolve 2016-032017-03-03 Sindhu deficit y d 0-12 16:22:00 Uribe 16:22: [id number] 00 Safety risk for Safety Resolve 2016-032017-03-03 Sindhu hospitaliza d 0-12 16:22:00 Uribe tion 16:22: [id number] 00 Integument pressure Integument Unknown 2016-03 Angelica ulcer 0-23 Farhat present 16:00: [id number] 00 Integument stasis Integument Active 2016-03 Angelica ulcer 0-23 Farhat present 16:00: [id number] 00 Integument skin Integument Resolve 2016-032017-03-03 Angelica integrity d 0-23 16:22:00 [place] risk 16:00: [id number] 00 Elimination urinary Eliminatio Resolve 2016-032017-03-03 Angelica incontinenc n d 04-12 16:22:00 Farhat e 17:25: [id number] 00 Elimination constipatio Eliminatio Resolve 2016-032017-03-03 Angelica n n d 04-12 16:22:00 [place] 17:25: [id number] 00 Integument other wound Integument Resolve 2016-032017-03-03 Angelica present d 2- 16:22:00 Farhat 16:22: [id number] 00 Elimination bowel Eliminatio Resolve 2016-032017-03-03 Angelica incontinenc n d 05-04 16:22:00 [place] e 16:22: [id number] 00 Endo/Enrique anti-coagul Endo/Enrique Resolve 2016-032018-06-20 Angelica ation d 05-09 16:00:00 Farhat therapy 16:03: [id number] 00 Elimination urinary Eliminatio Resolve 2016-032017-11-24 Angelica incontinenc n d 05-09 16:55:00 [place] e 16:03: [id number] 00 Elimination bowel Eliminatio Resolve 2016-032017-11-24 Angelica incontinenc n d 05-09 16:55:00 [place] e 16:03: [id number] 00 Respiratory dyspnea Respirator Resolve 2016-032018-03-01 Almaz present y d 05-11 15:31:00 [place] 15:50: [id number] 00 Safety fall risk Safety Resolve 2017-11-24 Sindhu factor d 03-15 16:55:00 Uribe present 16:20: [id number] 00 Safety risk for Safety Resolve 2017-11-24 Sindhu hospitaliza d 03-15 16:55:00 Uribe tion 16:20: [id number] 00 Safety can be left Safety Active Sindhu alone for 03-15 Uribe only short 16:20: [id number] periods 00 24 Hr Diet knowledge/s NT: 24Hr Resolve 2017-04-13 Bia kill Diet d 04-13 17:00:00 [place] deficit - 17:00: [id number] pt 00 24 Hr Diet knowledge/s NT: 24Hr Resolve 2017-04-13 Bia kill Diet d 04-13 17:00:00 [place] deficit - 17:00: [id number] cg 00 Integument skin Integument Resolve 2017-11-24 Angelica integrity d 05-06 16:55:00 [place] risk 16:38: [id number] 00 Neuro impaired Neuro/Emot Active Angelica decision-ma ion 05-06 Farhat monaco 16:38: [id number] 00 Safety cannot be Safety Active Angelica left alone 05-06 [place] 16:38: [id number] 00 Musculoskel requires Musculoske Resolve 2018-06-20 Angelica etal human letal d 05-06 16:00:00 Farhat assist to 16:38: [id number] leave home 00 Musculoskel requires Musculoske Resolve 2018-06-20 Angelica etal special letal d 05-06 16:00:00 [place] transportat 16:38: [id number] ion 00 Musculoskel transfer Musculoske Resolve 2018-06-20 Angelica etal assistance letal d 05-06 16:00:00 [place] required 16:38: [id number] 00 Test/Treatm venipunctur Test/Injec Active Angelica ent e ordered t/Fabrice 06-03 Noelle [id number] Elimination constipatio Eliminatio Resolve 2017-11-24 Angelica n n d 06-03 16:55:00 Noelle 19:06: [id number] 00 Neuro confusion Neuro/Emot Active Angelica present ion 06-03 Noelle 19:06: [id number] 00 Medication potential Meds Resolve 2018-06-20 Angelica clinically d 06-03 16:00:00 Noelle significant 19:06: [id number] medication 00 issue Medication oral med Meds Resolve 2018-06-06 Angelica assistance d 06-03 15:00:00 Noelle required 19:06: [id number] 00 Medication knowledge/s Meds Resolve 2018-06-20 Angelica kill d 06-03 16:00:00 Noelle deficit: pt 19:06: [id number] 00 Elimination urinary Eliminatio Resolve 2017-11-24 Angelica urgency n d 09-29 16:55:00 Noelle 15:32: [id number] 00 Elimination urinary Eliminatio Resolve 2017-11-24 Angelica frequency n d 09-29 16:55:00 Noelle 15:32: [id number] 00 Safety risk for Safety Resolve 2018-04-20 Almaz hospitaliza d 9-20 14:59:00 [place] tion 16:31: [id number] 00 Integument skin Integument Resolve 2017-032018-04-20 Angelica integrity d 0-18 14:59:00 Noelle risk 14:11: [id number] 00 Elimination urinary Eliminatio Resolve 2017-032018-12-21 Angelica incontinenc n d 0-18 15:15:00 Noelle e 14:11: [id number] 00 Safety fall risk Safety Resolve 2017-032018-04-20 Angelica factor d 0-18 14:59:00 Noelle present 14:11: [id number] 00 Integument pressure Integument Unknown Angelica ulcer 04-06 Noelle present 14:59: [id number] 00 Integument skin Integument Resolve 2018-06-27 Angelica integrity d 2-13 15:00:00 Noelle risk 15:08: [id number] 00 Elimination recurring Eliminatio Resolve 2018-12-21 Angelica UTI n d 2-13 15:15:00 Noelle 15:08: [id number] 00 Activity ADL Activity Active Angelica assistance 04-26 Noelle required 15:08: [id number] 00 Activity self-care Activity Resolve 2018-11-30 Angelica deficit d 2-13 14:26:00 Noelle 15:08: [id number] 00 Safety risk for Safety Resolve 2018-06-20 Angelica hospitaliza d 2-13 16:00:00 Noelle tion 15:08: [id number] 00 Safety fall risk Safety Resolve 2018-06-20 Angelica factor d 2-13 16:00:00 Noelle present 15:08: [id number] 00 Nutrition knowledge/s Nutrition Active Angelica kill 06-20 Noelle deficit: pt 16:00: [id number] 00 Nutrition nutritional Nutrition Active Angelica restriction 06-20 Noelle s 16:00: [id number] 00 Endo/Enrique anti-coagul Endo/Enrique Active Angelica ation 4-16 Noelle therapy 15:00: [id number] 00 Safety fall risk Safety Active Angelica factor 4-16 Noelle present 15:00: [id number] 00 Safety risk for Safety Active Angelica hospitaliza 4-16 Noelle tion 15:00: [id number] 00 Medication knowledge/s Meds Resolve 2018-08-03 Angelica darnell d 4-16 16:00:00 Noelle deficit: pt 15:00: [id number] 00 Musculoskel transfer Musculoske Unknown Angelica etal assistance letal 06-27 Noelle required 15:00: [id number] 00 Musculoskel requires Musculoske Unknown Angelica etal human letal -16 Noelle assist to 15:00: [id number] leave home 00 Elimination knowledge/s Eliminatio Resolve 2018-12-21 Angelica darnell n d 07-04 15:15:00 Noelle deficit: pt 15:15: [id number] 00 Test/Treatm tests Test/Injec Active Angelica ent ordered t/Fabrice 07-07 Noelle [id number] Musculoskel requires Musculoske Unknown Angelica etal special letal 07-18 Noelle transportat 15:45: [id number] ion 00 Medication knowledge/s Meds Resolve 2018-2018-08-31 Angelica darnell d 08-10 16:53:00 Marianela deficit: pt 15:30: [employer] 00 [id number] Integument skin Integument Active Angelica integrity 08-24 Noelle risk 16:02: [id number] 00 Medication knowledge/s Meds Resolve 2018-09-22 Angelica darnell d 09-07 15:00:00 Marianela deficit: pt 15:30: [employer] 00 [id number] Respiratory dyspnea Respirator Active Angelica present y 11-30 Noelle 14:26: [id number] 00 Sensory impaired Sensory Active Zoila verbal 12-09 [place] communicati 10:20: [id number] on 00 Sensory impaired Sensory Active Zoila hearing 12-09 [place] 10:20: [id number] 00 Activity self-care Activity Active 2018-03 Angelica deficit 0-10 Noelle 15:15: [id number] 00 Elimination urinary Eliminatio Active 2018-03 Angelica incontinenc n 0-17 Noelle e 15:33: [id number] 00 Allergies, Adverse Reactions, Alerts Allergy Name [...] (SIG) Name Name acetaminoph acetaminoph 2017- No [place] 2 tab Unknown en 325 mg en 325 mg 11-28 Bobo MORENO tablet tablet amLODIPine amLODIPine 2016- No [place] 1 tab Unknown 5 mg tablet 5 mg tablet 06-26 05- Bobo MORENO aspirin 81 aspirin 81 No [place] 1 tab Unknown mg mg 6 Bobo MORENO tablet,ivania tablet,ivania yed release yed release atorvastati atorvastati No [place] 1 tab Unknown n 80 mg n 80 mg 06-26 Bobo MORENO tablet tablet baclofen 10 baclofen 10 No [place] 1 tab Unknown mg tablet mg tablet 11-28 Bobo MORENO citalopram citalopram 2016- No [place] 1 tab Unknown 10 mg 10 mg 06-26-20 Bobo MORENO tablet tablet Colace 200 Colace 200 2016- No [place] 1 tab Unknown mg capsule mg capsule 09-21 Bobo MORENO docusate docusate 2015- No [place] 3 cap Unknown sodium 100 sodium 100 11-28 0824 Bobo MORENO mg capsule mg capsule gabapentin gabapentin 2012-03 No [place] 1-2 Cap Unknown 300 mg 300 mg 2- Bobo MORENO capsule capsule guaiFENesin guaiFENesin 2016- No [place] 10 ML Unknown AC 10 AC 10 11-28 Bobo MORENO mg-100 mg/5 mg-100 mg/5 mL oral mL oral liquid liquid HYDROcodone HYDROcodone 2016- No [place] 1 tab Unknown 10 10 11-28 Bobo MORENO mg-acetamin mg-acetamin ophen 325 ophen 325 mg tablet mg tablet latanoprost latanoprost 2018- No [place] 1 drop Unknown 0.005 % eye 0.005 % eye 05-23- Bobo MORENO drops drops metoprolol metoprolol No [place] 1 tab Unknown tartrate 25 tartrate 25 03-25 Bobo MORENO mg tablet mg tablet Milk of Milk of No [place] 30 ML Unknown Magnesia Magnesia 11-28 Bobo MORENO 400 mg/5 mL 400 mg/5 mL oral oral suspension suspension nortriptyli nortriptyli 2016- No [place] 1 Cap Unknown ne 10 mg ne 10 mg 06-26- Bobo MORENO capsule capsule omeprazole omeprazole No [place] 1 Cap Unknown 20 mg 20 mg 11-29 ,Bobo capsule,del capsule,del ayed ayed release release Topamax 100 Topamax 100 2018- No [place] 1 tab Unknown mg tablet mg tablet 11-25 Bobo MORENO Topamax 25 Topamax 25 2018- No [place] 2 tab Unknown mg tablet mg tablet 04-18 Bobo MORENO Tricor 145 Tricor 145 2016- No [place] 1 tab Unknown mg tablet mg tablet 11-28 Bobo MORENO sulfamethox sulfamethox 2015- No [place] one Unknown azole 400 azole 400 09-25 Bobo MORENO tablet mg-trimetho mg-trimetho prim 80 mg prim 80 mg tablet tablet tamsulosin tamsulosin 2017- No [place] one Unknown 0.4 mg 0.4 mg 09-25 Boob MORENO capsule capsule capsule nitrofurant nitrofurant No [place] 1 Unknown oin oin 8-11 Bobo MROENO monohydrate monohydrate /macrocryst /macrocryst als 100 mg als 100 mg capsule capsule docusate docusate 2016- No [place] 3 cap Unknown sodium 100 sodium 100 11-04 Bobo MORENO mg capsule mg capsule gentamicin gentamicin 2015-03- No [place] 1 drop Unknown 0.3 % eye 0.3 % eye 03-30 ,Bobo drops drops nortriptyli nortriptyli 2018- No [place] 2 Cap Unknown ne 10 mg ne 10 mg 04-28 Bobo MORENO (20 mg) capsule capsule hydroCHLORO hydroCHLORO No [place] 1 Unknown thiazide 25 thiazide 25 06-24 ,Bobo tablet mg tablet mg tablet (25 mg) citalopram citalopram No [place] 1tab Unknown 20 mg 20 mg 07-01 ,Bobo tablet tablet fenofibrate fenofibrate 2016- No [place] 1 Unknown nanocrystal nanocrystal 07-08 Bobo MORENO tablet lized 145 lized 145 (145 mg tablet mg tablet mg) doxycycline doxycycline 2016- No [place] 1 Unknown hyclate 100 hyclate 100 07-09- Bobo MORENO tablet mg tablet mg tablet (100 mg) Colace 100 Colace 100 2016-03- No [place] 3 Unknown mg capsule mg capsule 09-29 Bobo MORENO capsule s fenofibrate fenofibrate 2016-03- No [place] 1 cap Unknown 150 mg 150 mg 03-15 ,Bobo capsule capsule acetaminoph acetaminoph 2018- No [place] 1-2 Unknown en 500 mg en 500 mg 03-15 Bobo MORENO Tablets tablet tablet clindamycin clindamycin 2017- No [place] 150 mg Unknown HCl 150 mg HCl 150 mg 04-04- Bobo MORENO capsule capsule doxycycline doxycycline 2017- No [place] 1 Unknown monohydrate monohydrate 05-17 Bobo MORENO 100 mg 100 mg capsule capsule senna 8.6 senna 8.6 No [place] 1 tab Unknown mg tablet mg tablet 06-03 Bobo MORENO hold for diarrhe a Colace 100 Colace 100 No [place] Unknown Unknown mg capsule mg capsule 09-29 Bobo MORENO tamsulosin tamsulosin No [place] Unknown Unknown 0.4 mg 0.4 mg 09-29 ,Bobo capsule capsule doxycycline doxycycline 2018- No [place] Unknown Unknown 100 mg 100 mg 04-07 Bobo tablet tablet mupirocin 2 mupirocin 2 2018- No [place] Unknown Unknown % topical % topical 04-07 ,Bobo ointment ointment mupirocin 2 mupirocin 2 No [place] Unknown Unknown % topical % topical 04-07 ,Bobo ointment ointment oxybutynin oxybutynin No [place] Unknown Unknown chloride 5 chloride 5 04-07 rthy mg tablet mg tablet Rocio benzonatate benzonatate 2018- No [place] Unknown Unknown 100 mg 100 mg 08-17- ,Bobo capsule capsule azithromyci azithromyci 2018- No [place] Unknown Unknown n 250 mg n 250 mg 09-01 ,Bobo tablet tablet benzonatate benzonatate 2018- No [place] Unknown Unknown 100 mg 100 mg 09-04 ,Bobo capsule capsule topiramate topiramate No [place] Unknown Unknown 25 mg 25 mg 09-22 Bobo tablet tablet Neosporin Neosporin No [place] Unknown Unknown (lenard-segun-po (lenard-segun-po 09-22 MD,Bobo lym) 3.5 lym) 3.5 mg-400 mg-400 unit-5,000 unit-5,000 unit/gram unit/gram top top ointment ointment Tylenol 325 Tylenol 325 No [place] Unknown Unknown mg capsule mg capsule 09-22 MD,Bobo Artificial Artificial No [place] Unknown Unknown Tears Tears 09-22 MD,Bobo Xalatan Xalatan No [place] Unknown Unknown 0.005 % eye 0.005 % eye 09-22 ,Bobo drops drops Blue-emu Blue-emu No [place] Unknown Unknown super super 09-22 ,Bobo strenth strenth nortriptyli nortriptyli No [place] Unknown Unknown ne 10 mg ne 10 mg 11-16 ,Bobo capsule capsule Vital Signs Vital Name Observation Time Observation Value Comments SYSTOLIC mm[Hg] 2019-03-10 18:09:35 142 mm[Hg] mm[Hg] Method: Sit DIASTOLIC mm[Hg] 2019-03-10 18:09:35 84 mm[Hg] mm[Hg] Method: Sit PULSE 2019-03-10 18:09:35 82 /min /min RESP RATE 2019-03-10 18:09:35 18 /min /min TEMP 2019-03-10 18:09:35 98 [degF] Procedures This patient has no known procedures. Results This patient has no known results.
--- OUTSIDE RECORDS SUMMARY | 2019-04-15 14:08 | XMS REPORT ---
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 Aphasia Aphasia Diagnosis Active Angelica following following 11-28 Noelle unspecified unspecified [id number] cerebrovasc cerebrovasc ular ular disease disease Chronic Chronic Diagnosis Active Angelica venous venous 11-28 Noelle hypertensio hypertensio [id number] n w/o comp n w/o comp of l low of l low extrem extrem Essential Essential Diagnosis Active Angelica (primary) (primary) 11-28 Noelle hypertensio hypertensio [id number] n n 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-28 Noelle emo def emo def [id number] following following unsp unsp cerebvasc cerebvasc disease disease 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, disorder, [id number] recurrent, recurrent, unspecified unspecified Unspecified Unspecified Diagnosis Active Angelica open-angle open-angle Noelle glaucoma, glaucoma, [id number] stage stage unspecified unspecified Mixed Mixed Diagnosis Active Angelica hyperlipide hyperlipide Noelle lilly lilly [id number] Acquired Acquired Diagnosis Active Angelica absence of absence of Noelle unspecified unspecified [id number] leg above leg above knee knee Thrombotic Thrombotic Diagnosis Active Angelica microangiop microangiop Noelle rehan rehan [id number] Medication knowledge/s Meds Resolve 2015-09-16 Jackie darnell d 2-11 18:04:00 Sinnigen deficit: pt 15:50: [id number] 00 Diagnoses knowledge/s Diagnoses Resolve 2016-03-17 Tammee kill d 2- 15:00:00 [place] deficit: pt 15:50: an 00 Diagnoses knowledge/s Diagnoses Resolve 2016-03-17 Tammee kill d 2-11 15:00:00 C[place]-Hor deficit: cg 15:50: an 00 Pain knowledge/s Pain Mgmt Resolve 2015-09-16 Luz Maria kill d 3 18:04:00 Samuels deficit: pt 15:45: [id number] 00 Cardio hypertensio Cardiovasc Resolve 2016-09-08 Luz Maria n ular d 3 21:45:00 Samuels 15:45: [id number] 00 Integument skin Integument Resolve 2015-09-16 Luz Maria integrity d 05-14 18:04:00 Samuels risk 15:45: [id number] 00 Nutrition knowledge/s Nutrition Resolve 2015-12-10 Luz Maria kill d 3 15:20:00 Samuels deficit: pt 15:45: [id number] 00 Elimination constipatio Eliminatio Resolve 2015-09-16 Luz Maria n n d 05-14 18:04:00 Samuels 15:45: [id number] 00 Elimination urinary Eliminatio Resolve 2015-05-15 Luz Maria incontinenc n d 3 15:45:00 Arvind e 15:45: [id number] 00 Activity ADL Activity Resolve 2016-03-17 Luz Maria assistance d 3 15:00:00 Samuels required 15:45: [id number] 00 Safety fall risk Safety Resolve 2015-09-16 Luz Maria factor d 05-14 18:04:00 Samuels present 15:45: [id number] 00 Medication injectable Meds Resolve 2015-09-16 Luz Maria med d 05-14 18:04:00 Arvind assistance 15:45: [id number] required 00 Musculoskel transfer Musculoske Unknown Luz Maria etal assistance letal 05-14 Arvind required 15:45: [id number] 00 Safety knowledge/s Safety Resolve 2015-09-16 Jackie kill d 3-17 18:04:00 Sinnigen deficit: pt 17:45: [id number] 00 Respiratory lung sounds Respirator Resolve 2015-07-16 Luz Maria deficit y d 07-15 18:27:00 Arvind 18:27: [id number] 00 Elimination urinary Eliminatio Resolve 2015-08-15 Luz Maria incontinenc n d 07-15 16:23:00 Samuels e 18:27: [id number] 00 Neuro depressive Neuro/Emot Resolve 2016-03-17 Luz Maria feelings ion d 07-15 15:00:00 Samuels present 18:27: [id number] 00 Elimination urinary Eliminatio Resolve 2015-09-16 Luz Maria incontinenc n d 09-15 18:04:00 Arvind e 18:04: [id number] 00 Elimination urinary Eliminatio Resolve 2015-11-12 Luz Maria incontinenc n d 10-02 16:30:00 Arvind e 15:29: [id number] 00 Cardio edema Cardiovasc Resolve 2016-09-08 Shoshana ular d 10-15 21:45:00 Jerram DRUG PURCHASER 15:00: [id number] 00 Sensory impaired Sensory Resolve 2016-03-17 Shoshana verbal d 10-15 15:00:00 Jerram DRUG PURCHASER communicati 15:00: [id number] on 00 Elimination recurring Eliminatio Resolve 2015-12-10 Shoshana UTI n d 10-15 15:20:00 Jerram DRUG PURCHASER 15:00: [id number] Pain knowledge/s Pain Mgmt Resolve 2015-12-10 Luz Maria kill gretta 11-11 15:20:00 Arvind deficit: pt 16:30: [id number] 00 Cardio hypertensio Cardiovasc Unknown Luz Maria n rory 11-11 Arvind 16:30: [id number] 00 Elimination diarrhea Eliminatio Resolve 2015-12-10 Luz Maria n d 11-11 15:20:00 Arvind 16:30: [id number] 00 Medication oral med Meds Resolve 2016-09-08 Luz Maria assistance d 11-11 21:45:00 Samuels required 16:30: [id number] 00 Medication knowledge/s Meds Resolve 2016-03-17 Luz Maria kill d 8-31 15:00:00 Samuels deficit: pt 16:30: [id number] 00 Elimination urinary Eliminatio Resolve 2015-12-10 Almaz frequency n d 11-12 15:20:00 Christian 15:00: [id number] 00 Elimination urinary Eliminatio Resolve 2015-12-10 Almaz incontinenc n d 11-19 15:20:00 Christian e 14:00: [id number] 00 Safety fall risk Safety Resolve 2016-03-17 Luz Maria factor d 9 15:00:00 Samuels present 15:20: [id number] 00 Nutrition knowledge/s Nutrition Resolve 2015-032016-03-17 Almaz kill d 0 15:00:00 Christian deficit: pt 13:15: [id number] 00 Elimination urinary Eliminatio Resolve 2015-032016-01-07 Luz Maria incontinenc n d 0-20 16:01:00 Arvind e 15:28: [id number] 00 Pain frequent Pain Mgmt Resolve 2015-032018-04-26 Luz Maria pain d 0-26 15:08:00 Samuels 16:01: [id number] 00 Respiratory lung sounds Respirator Resolve 2015-032016-03-17 Luz Maria deficit y d 0-26 15:00:00 Arvind 16:01: [id number] 00 Respiratory dyspnea Respirator Resolve 2016-09-08 Luz Maria present y d 03-17 21:45:00 Arvind 15:00: [id number] 00 Integument pressure Integument Resolve 2018-06-27 Luz Maria ulcer d 03-17 15:00:00 Samuels present 15:00: [id number] 00 Integument skin Integument Resolve 2016-03-17 Luz Maria integrity d 1 15:00:00 Samuels risk 15:00: [id number] 00 Nutrition changing Nutrition Resolve 2016-09-20 Luz Maria weight/appe d 03-17 15:30:00 Arvind tite 15:00: [id number] 00 Nutrition knowledge/s Nutrition Resolve 2016-08-16 Almaz kill d 1-12 15:30:00 Christian deficit: pt 16:10: [id number] 00 Medication knowledge/s Meds Resolve 2016-09-08 Almaz kill d 1-12 21:45:00 Christian deficit: pt 16:10: [id number] 00 Nutrition nutritional Nutrition Resolve 2016-08-16 Luz Maria restriction d 2- 15:30:00 Samuels s 15:30: [id number] 00 Musculoskel transfer Musculoske Unknown Luz Maria etal assistance letal 05-06 Samuels required 15:15: [id number] 00 Musculoskel requires Musculoske Unknown Luz Maria etal human letal 05-06 Samuels assist to 15:15: [id number] leave home 00 Sensory impaired Sensory Resolve 2016-10-06 Stephanie verbal d 3 15:00:00 Haile communicati 15:35: [id number] on 00 Safety fall risk Safety Resolve 2016-08-16 Stephanie factor d 3 15:30:00 Haile present 15:35: [id number] 00 Safety risk for Safety Resolve 2016-08-16 Stephanie hospitaliza d 3 15:30:00 Haile tion 15:35: [id number] 00 Integument stasis Integument Resolve 2016-09-08 Stephanie ulcer d 07-08 21:45:00 Haile present 15:30: [id number] 00 Integument skin Integument Resolve 2016-09-08 Stephanie integrity d 07-08 21:45:00 Haile risk 15:30: [id number] 00 Neuro impaired Neuro/Emot Resolve 2016-10-06 Stephanie decision-ma ion d 08-10 15:00:00 Haile jacinda 16:00: [id number] 00 Safety risk for Safety Resolve 2016-09-08 Stephanie hospitaliza d 6- 21:45:00 Haile tion 16:00: [id number] 00 Musculoskel requires Musculoske Unknown Stephanie etal human letal 08-23 Haile assist to 16:00: [id number] leave home 00 Nutrition nutritional Nutrition Resolve 2016-09-20 Stephanie restriction d 09-06 15:30:00 Haile s 15:20: [id number] 00 Neuro depressive Neuro/Emot Resolve 2018-06-20 Stephanie feelings ion d 09-06 16:00:00 Haile present 15:20: [id number] 00 Safety fall risk Safety Resolve 2016-09-08 Stephanie factor d 09-06 21:45:00 Haile present 15:20: [id number] 00 Musculoskel transfer Musculoske Unknown Stephanie etal assistance letal 09-06 Haile required 15:20: [id number] 00 Pain frequent Pain Mgmt Unknown Stephanie pain 10-01 Haile 15:20: [id number] 00 Cardio edema Cardiovasc Resolve 2017-03-03 Stephanie ular d 10-01 16:22:00 Haile 15:20: [id number] 00 Activity ADL Activity Resolve 2016-10-06 Stephanie assistance d 10-01 15:00:00 Haile required 15:20: [id number] 00 Safety risk for Safety Resolve 2016-10-06 Stephanie hospitaliza d 10-01 15:00:00 Haile tion 15:20: [id number] 00 Musculoskel requires Musculoske Unknown Stephanie etal human letal 10-01 Haile assist to 15:20: [id number] leave home 00 Medication knowledge/s Meds Resolve 2016-10-06 Almaz kill d 10-04 15:00:00 Christian deficit: pt 14:55: [id number] 00 Medication knowledge/s Meds Resolve 2017-03-03 Almaz kill d 10-14 16:22:00 Christian deficit: pt 15:30: [id number] 00 Safety can be left Safety Resolve 2017-03-03 Demetria alone for d 10-21 16:22:00 Lizett only short 15:00: [id number] periods 00 Sensory impaired Sensory Resolve 2017-03-03 Irene verbal d 10-28 16:22:00 Mara majano 16:00: [id number] on 00 Neuro impaired Neuro/Emot Resolve 2017-03-03 Irene decision-ma ion d 10-28 16:22:00 Mara monaco 16:00: [id number] 00 Musculoskel requires Musculoske Unknown Irene etal special letal 10-28 Mara noelat 16:00: [id number] ion 00 Nutrition nutritional Nutrition Resolve 2017-03-03 Bryan restriction d 11-05 16:22:00 Mason RN s 15:28: [id number] 00 Safety fall risk Safety Resolve 2017-03-03 Bryan factor d 11-05 16:22:00 Mason RN present 15:28: [id number] 00 Musculoskel transfer Musculoske Unknown Bryan etal assistance letal 11-05 Mason RN required 15:28: [id number] 00 Respiratory dyspnea Respirator Resolve 2017-03-03 Almaz present y d 11-11 16:22:00 Christian 15:30: [id number] 00 Respiratory lung sounds Respirator Resolve 2016-032017-03-03 Sindhu deficit y d 0-12 16:22:00 Uribe 16:22: [id number] 00 Safety risk for Safety Resolve 2016-032017-03-03 Sindhu hospitaliza d 0-12 16:22:00 Uribe tion 16:22: [id number] 00 Integument pressure Integument Unknown 2016-03 Angelica ulcer 0-23 Farhat present 16:00: [id number] 00 Integument stasis Integument Active 2016-03 Angelica ulcer 0-23 Farhat present 16:00: [id number] 00 Integument skin Integument Resolve 2016-032017-03-03 Angelica integrity d 0-23 16:22:00 Farhat risk 16:00: [id number] 00 Elimination urinary Eliminatio Resolve 2016-032017-03-03 Angelica incontinenc n d 04-12 16:22:00 Sagamore e 17:25: [id number] 00 Elimination constipatio Eliminatio Resolve 2016-032017-03-03 Angelica n n d 04-12 16:22:00 Sagamore 17:25: [id number] 00 Integument other wound Integument Resolve 2016-032017-03-03 Angelica present d 2- 16:22:00 Sagamore 16:22: [id number] 00 Elimination bowel Eliminatio Resolve 2016-032017-03-03 Angelica incontinenc n d 05-04 16:22:00 Farhat e 16:22: [id number] 00 Endo/Enrique anti-coagul Endo/Enrique Resolve 2016-032018-06-20 Angelica ation d 05-09 16:00:00 Farhat therapy 16:03: [id number] 00 Elimination urinary Eliminatio Resolve 2016-032017-11-24 Angelica incontinenc n d 05-09 16:55:00 Sagamore e 16:03: [id number] 00 Elimination bowel Eliminatio Resolve 2016-032017-11-24 Angelica incontinenc n d 05-09 16:55:00 Farhat e 16:03: [id number] 00 Respiratory dyspnea Respirator Resolve 2016-032018-03-01 Almaz present y d 05-11 15:31:00 Christian 15:50: [id number] 00 Safety fall risk Safety Resolve 2017-11-24 Sindhu factor d 03-15 16:55:00 Uribe present 16:20: [id number] 00 Safety risk for Safety Resolve 2017-11-24 Sindhu hospitaliza d 03-15 16:55:00 Uribe tion 16:20: [id number] 00 Safety can be left Safety Active Sindhu alone for 03-15 Uribe only short 16:20: [id number] periods 00 24 Hr Diet knowledge/s NT: 24Hr Resolve 2017-04-13 Bia kill Diet d 04-13 17:00:00 [place] deficit - 17:00: [id number] pt 00 24 Hr Diet knowledge/s NT: 24Hr Resolve 2017-04-13 Bia kill Diet d 04-13 17:00:00 [place] deficit - 17:00: [id number] cg 00 Integument skin Integument Resolve 2017-11-24 Angelica integrity d 05-06 16:55:00 [place]am[place] risk 16:38: [id number] 00 Neuro impaired Neuro/Emot Active Angelica decision-ma ion 05-06 Farhat monaco 16:38: [id number] 00 Safety cannot be Safety Active Angelica left alone 05-06 Sagamore 16:38: [id number] 00 Musculoskel requires Musculoske Resolve 2018-06-20 Angelica etal human letal d 05-06 16:00:00 Sagamore assist to 16:38: [id number] leave home 00 Musculoskel requires Musculoske Resolve 2018-06-20 Angelica etal special letal d 05-06 16:00:00 Sagamore transportat 16:38: [id number] ion 00 Musculoskel transfer Musculoske Resolve 2018-06-20 Angelica etal assistance letal d 05-06 16:00:00 Farhat required 16:38: [id number] 00 Test/Treatm venipunctur Test/Injec Active Angelica ent e ordered t/Fabrice 06-03 Noelle [id number] Elimination constipatio Eliminatio Resolve 2017-11-24 Angelica n n d 06-03 16:55:00 Noelle 19:06: [id number] 00 Neuro confusion Neuro/Emot Active Angelica present ion 06-03 Noelle 19:06: [id number] 00 Medication potential Meds Resolve 2018-06-20 Angelica clinically d 06-03 16:00:00 Noelle significant 19:06: [id number] medication 00 issue Medication oral med Meds Resolve 2018-06-06 Angelica assistance d 06-03 15:00:00 Noelle required 19:06: [id number] 00 Medication knowledge/s Meds Resolve 2018-06-20 Angelica kill d 06-03 16:00:00 Noelle deficit: pt 19:06: [id number] 00 Elimination urinary Eliminatio Resolve 2017-11-24 Angelica urgency n d 09-29 16:55:00 Noelle 15:32: [id number] 00 Elimination urinary Eliminatio Resolve 2017-11-24 Angelica frequency n d 09-29 16:55:00 Noelle 15:32: [id number] 00 Safety risk for Safety Resolve 2018-04-20 Almaz hospitaliza d 9-20 14:59:00 Christian tion 16:31: [id number] 00 Integument skin Integument Resolve 2017-032018-04-20 Angelica integrity d 0-18 14:59:00 Noelle risk 14:11: [id number] 00 Elimination urinary Eliminatio Resolve 2017-032018-12-21 Angelica incontinenc n d 0-18 15:15:00 Noelle e 14:11: [id number] 00 Safety fall risk Safety Resolve 2017-032018-04-20 Angelica factor d 0-18 14:59:00 Noelle present 14:11: [id number] 00 Integument pressure Integument Unknown Angelica ulcer 04-06 Noelle present 14:59: [id number] 00 Integument skin Integument Resolve 2018-06-27 Angelica integrity d 2-13 15:00:00 Noelle risk 15:08: [id number] 00 Elimination recurring Eliminatio Resolve 2018-12-21 Angelica UTI n d 2-13 15:15:00 Noelle 15:08: [id number] 00 Activity ADL Activity Active Angelica assistance 04-26 Noelle required 15:08: [id number] 00 Activity self-care Activity Resolve 2018-11-30 Angelica deficit d 2-13 14:26:00 Noelle 15:08: [id number] 00 Safety risk for Safety Resolve 2018-06-20 Angelica hospitaliza d 2-13 16:00:00 Noelle tion 15:08: [id number] 00 Safety fall risk Safety Resolve 2018-06-20 Angelica factor d 2-13 16:00:00 Noelle present 15:08: [id number] 00 Nutrition knowledge/s Nutrition Active Angelica kill 06-20 Noelle deficit: pt 16:00: [id number] 00 Nutrition nutritional Nutrition Active Angelica restriction 06-20 Noelle s 16:00: [id number] 00 Endo/Enrique anti-coagul Endo/Enrique Active Angelica ation 4-16 Noelle therapy 15:00: [id number] 00 Safety fall risk Safety Active Angelica factor 4-16 Noelle present 15:00: [id number] 00 Safety risk for Safety Active Angelica hospitaliza 4-16 Noelle tion 15:00: [id number] 00 Medication knowledge/s Meds Resolve 2018-08-03 Angelica darnell d 4-16 16:00:00 Noelle deficit: pt 15:00: [id number] 00 Musculoskel transfer Musculoske Unknown Angelica etal assistance letal 06-27 Noelle required 15:00: [id number] 00 Musculoskel requires Musculoske Unknown Angelica etal human letal -16 Noelle assist to 15:00: [id number] leave home 00 Elimination knowledge/s Eliminatio Resolve 2018-12-21 Angelica darnell n d 07-04 15:15:00 Noelle deficit: pt 15:15: [id number] 00 Test/Treatm tests Test/Injec Active Angelica ent ordered t/Fabrice 07-07 Noelle [id number] Musculoskel requires Musculoske Unknown Angelica etal special letal 07-18 Noelle transportat 15:45: [id number] ion 00 Medication knowledge/s Meds Resolve 2018-2018-08-31 Angelica darnell d 08-10 16:53:00 Marianela deficit: pt 15:30: [employer] 00 [id number] Integument skin Integument Active Angelica integrity 08-24 Noelle risk 16:02: [id number] 00 Medication knowledge/s Meds Resolve 2018-09-22 Angelica darnell d 09-07 15:00:00 Marianela deficit: pt 15:30: [employer] 00 [id number] Respiratory dyspnea Respirator Active Angelica present y 11-30 Noelle 14:26: [id number] 00 Sensory impaired Sensory Active Zoila verbal 12-09 [place]rayton communicati 10:20: [id number] on 00 Sensory impaired Sensory Active Zoila hearing 12-09 [place] 10:20: [id number] 00 Activity self-care Activity Active 2018-03 Angelica deficit 0-10 Noelle 15:15: [id number] 00 Elimination urinary Eliminatio Active 2018-03 Angelica incontinenc n 0-17 Noelle e 15:33: [id number] 00 Allergies, Adverse Reactions, Alerts Allergy Name [...] (SIG) Name Name acetaminoph acetaminoph 2017- No [place] 2 tab Unknown en 325 mg en 325 mg 11-28 Bobo MORENO tablet tablet amLODIPine amLODIPine 2016- No [place] 1 tab Unknown 5 mg tablet 5 mg tablet 06-26 05- Bobo MORENO aspirin 81 aspirin 81 No [place] 1 tab Unknown mg mg 6 Bobo MORENO tablet,ivania tablet,ivania yed release yed release atorvastati atorvastati No [place] 1 tab Unknown n 80 mg n 80 mg 06-26 Bobo MORENO tablet tablet baclofen 10 baclofen 10 No [place] 1 tab Unknown mg tablet mg tablet 11-28 Bobo MORENO citalopram citalopram 2016- No [place] 1 tab Unknown 10 mg 10 mg 06-26-20 Bobo MORENO tablet tablet Colace 200 Colace 200 2016- No [place] 1 tab Unknown mg capsule mg capsule 09-21 Bobo MORENO docusate docusate 2015- No [place] 3 cap Unknown sodium 100 sodium 100 11-28 0824 Bobo MORENO mg capsule mg capsule gabapentin gabapentin 2012-03 No [place] 1-2 Cap Unknown 300 mg 300 mg 2- Bobo MORENO capsule capsule guaiFENesin guaiFENesin 2016- No [place] 10 ML Unknown AC 10 AC 10 11-28 Bobo MORENO mg-100 mg/5 mg-100 mg/5 mL oral mL oral liquid liquid HYDROcodone HYDROcodone 2016- No [place] 1 tab Unknown 10 10 11-28 Bobo MORENO mg-acetamin mg-acetamin ophen 325 ophen 325 mg tablet mg tablet latanoprost latanoprost 2018- No [place] 1 drop Unknown 0.005 % eye 0.005 % eye 05-23- Bobo MORENO drops drops metoprolol metoprolol No [place] 1 tab Unknown tartrate 25 tartrate 25 03-25 Bobo MORENO mg tablet mg tablet Milk of Milk of No [place] 30 ML Unknown Magnesia Magnesia 11-28 Bobo MORENO 400 mg/5 mL 400 mg/5 mL oral oral suspension suspension nortriptyli nortriptyli 2016- No [place] 1 Cap Unknown ne 10 mg ne 10 mg 06-26- Bobo MORENO capsule capsule omeprazole omeprazole No [place] 1 Cap Unknown 20 mg 20 mg 11-29 ,Bobo capsule,del capsule,del ayed ayed release release Topamax 100 Topamax 100 2018- No [place] 1 tab Unknown mg tablet mg tablet 11-25 Bobo MORENO Topamax 25 Topamax 25 2018- No [place] 2 tab Unknown mg tablet mg tablet 04-18 Bobo MORENO Tricor 145 Tricor 145 2016- No [place] 1 tab Unknown mg tablet mg tablet 11-28 Bobo MORENO sulfamethox sulfamethox 2015- No [place] one Unknown azole 400 azole 400 09-25 Bobo MORENO tablet mg-trimetho mg-trimetho prim 80 mg prim 80 mg tablet tablet tamsulosin tamsulosin 2017- No [place] one Unknown 0.4 mg 0.4 mg 09-25 Bobo MORENO capsule capsule capsule nitrofurant nitrofurant No [place] 1 Unknown oin oin 8-11 Bobo MORENO monohydrate monohydrate /macrocryst /macrocryst als 100 mg als 100 mg capsule capsule docusate docusate 2016- No [place] 3 cap Unknown sodium 100 sodium 100 11-04 Bobo MORENO mg capsule mg capsule gentamicin gentamicin 2015-03- No [place] 1 drop Unknown 0.3 % eye 0.3 % eye 03-30 ,Bobo drops drops nortriptyli nortriptyli 2018- No [place] 2 Cap Unknown ne 10 mg ne 10 mg 04-28 Bobo MORENO (20 mg) capsule capsule hydroCHLORO hydroCHLORO No [place] 1 Unknown thiazide 25 thiazide 25 06-24 ,Bobo tablet mg tablet mg tablet (25 mg) citalopram citalopram No [place] 1tab Unknown 20 mg 20 mg 07-01 ,Bobo tablet tablet fenofibrate fenofibrate 2016- No [place] 1 Unknown nanocrystal nanocrystal 07-08 Bobo MORENO tablet lized 145 lized 145 (145 mg tablet mg tablet mg) doxycycline doxycycline 2016- No [place] 1 Unknown hyclate 100 hyclate 100 07-09- Bobo MORENO tablet mg tablet mg tablet (100 mg) Colace 100 Colace 100 2016-03- No [place] 3 Unknown mg capsule mg capsule 09-29 Bobo MORENO capsule s fenofibrate fenofibrate 2016-03- No [place] 1 cap Unknown 150 mg 150 mg 03-15 ,Bobo capsule capsule acetaminoph acetaminoph 2018- No [place] 1-2 Unknown en 500 mg en 500 mg 03-15 Bobo MORENO Tablets tablet tablet clindamycin clindamycin 2017- No [place] 150 mg Unknown HCl 150 mg HCl 150 mg 04-04- Bobo MORENO capsule capsule doxycycline doxycycline 2017- No [place] 1 Unknown monohydrate monohydrate 05-17 Bobo MORENO 100 mg 100 mg capsule capsule senna 8.6 senna 8.6 No [place] 1 tab Unknown mg tablet mg tablet 06-03 Bobo MORENO hold for diarrhe a Colace 100 Colace 100 No [place] Unknown Unknown mg capsule mg capsule 09-29 Bobo MORENO tamsulosin tamsulosin No [place] Unknown Unknown 0.4 mg 0.4 mg 09-29 ,Bobo capsule capsule doxycycline doxycycline 2018- No [place] Unknown Unknown 100 mg 100 mg 04-07 Bobo tablet tablet mupirocin 2 mupirocin 2 2018- No [place] Unknown Unknown % topical % topical 04-07 ,Bobo ointment ointment mupirocin 2 mupirocin 2 No [place] Unknown Unknown % topical % topical 04-07 ,Bobo ointment ointment oxybutynin oxybutynin No [place] Unknown Unknown chloride 5 chloride 5 04-07 rthy mg tablet mg tablet Rocio benzonatate benzonatate 2018- No [place] Unknown Unknown 100 mg 100 mg 08-17- ,Bobo capsule capsule azithromyci azithromyci 2018- No [place] Unknown Unknown n 250 mg n 250 mg 09-01 ,Bobo tablet tablet benzonatate benzonatate 2018- No [place] Unknown Unknown 100 mg 100 mg 09-04 ,Bobo capsule capsule topiramate topiramate No [place] Unknown Unknown 25 mg 25 mg 09-22 Bobo tablet tablet Neosporin Neosporin No [place] Unknown Unknown (lenard-segun-po (lenard-segun-po 09-22 MD,Bobo lym) 3.5 lym) 3.5 mg-400 mg-400 unit-5,000 unit-5,000 unit/gram unit/gram top top ointment ointment Tylenol 325 Tylenol 325 No [place] Unknown Unknown mg capsule mg capsule 09-22 MD,Bobo Artificial Artificial No [place] Unknown Unknown Tears Tears 09-22 MD,Bobo Xalatan Xalatan No [place] Unknown Unknown 0.005 % eye 0.005 % eye 09-22 ,Bobo drops drops Blue-emu Blue-emu No [place] Unknown Unknown super super 09-22 ,Bobo strenth strenth nortriptyli nortriptyli No [place] Unknown Unknown ne 10 mg ne 10 mg 11-16 ,Bobo capsule capsule Vital Signs Vital Name Observation Time Observation Value Comments SYSTOLIC mm[Hg] 2019-03-15 18:09:40 120 mm[Hg] mm[Hg] Method: Sit DIASTOLIC mm[Hg] 2019-03-15 18:09:40 72 mm[Hg] mm[Hg] Method: Sit PULSE 2019-03-15 18:09:40 72 /min /min RESP RATE 2019-03-15 18:09:40 18 /min /min TEMP 2019-03-15 18:09:40 98.8 [degF] Procedures This patient has no known procedures. Results This patient has no known results.
--- OUTSIDE RECORDS SUMMARY | 2019-04-15 14:08 | XMS REPORT ---
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 Aphasia Aphasia Diagnosis Active Angelica following following 11-28 Noelle unspecified unspecified [id number] cerebrovasc cerebrovasc ular ular disease disease Chronic Chronic Diagnosis Active Angelica venous venous 11-28 Noelle hypertensio hypertensio [id number] n w/o comp n w/o comp of l low of l low extrem extrem Essential Essential Diagnosis Active Angelica (primary) (primary) 11-28 Noelle hypertensio hypertensio [id number] n n 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-28 Noelle emo def emo def [id number] following following unsp unsp cerebvasc cerebvasc disease disease 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, disorder, 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 recurrent, recurrent, unspecified unspecified Unspecified Unspecified Diagnosis Active Angelica open-angle open-angle Noelle glaucoma, glaucoma, [id number] stage stage unspecified unspecified Mixed Mixed Diagnosis Active Angelica hyperlipide hyperlipide Noelle lilly lilly [id number] Acquired Acquired Diagnosis Active Angelica absence of absence of Noelle unspecified unspecified [id number] leg above leg above knee knee Thrombotic Thrombotic Diagnosis Active Angelica microangiop microangiop Noelle rehan rehan [id number] Medication knowledge/s Meds Resolve 2015-09-16 Jackie darnell d 2-11 18:04:00 Sinnigen deficit: pt 15:50: [id number] 00 Diagnoses knowledge/s Diagnoses Resolve 2016-03-17 Tammee kill d 2- 15:00:00 Dequincy-Hor deficit: pt 15:50: an 00 Diagnoses knowledge/s Diagnoses Resolve 2016-03-17 Tammee kill d 2-11 15:00:00 Cesar-Hor deficit: cg 15:50: an 00 Pain knowledge/s Pain Mgmt Resolve 2015-09-16 Luz Maria kill d 3 18:04:00 Samuels deficit: pt 15:45: [id number] 00 Cardio hypertensio Cardiovasc Resolve 2016-09-08 Luz Maria n ular d 3 21:45:00 Samuels 15:45: [id number] 00 Integument skin Integument Resolve 2015-09-16 Luz Maria integrity d 05-14 18:04:00 Samuels risk 15:45: [id number] 00 Nutrition knowledge/s Nutrition Resolve 2015-12-10 Luz Maria kill d 3 15:20:00 Samuels deficit: pt 15:45: [id number] 00 Elimination constipatio Eliminatio Resolve 2015-09-16 Luz Maria n n d 05-14 18:04:00 Samuels 15:45: [id number] 00 Elimination urinary Eliminatio Resolve 2015-05-15 Luz Maria incontinenc n d 3 15:45:00 Arvind e 15:45: [id number] 00 Activity ADL Activity Resolve 2016-03-17 Luz Maria assistance d 3 15:00:00 Samuels required 15:45: [id number] 00 Safety fall risk Safety Resolve 2015-09-16 Luz Maria factor d 05-14 18:04:00 Samuels present 15:45: [id number] 00 Medication injectable Meds Resolve 2015-09-16 Luz Maria med d 05-14 18:04:00 Arvind assistance 15:45: [id number] required 00 Musculoskel transfer Musculoske Unknown Luz Maria etal assistance letal 05-14 Arvind required 15:45: [id number] 00 Safety knowledge/s Safety Resolve 2015-09-16 Jackie kill d 3-17 18:04:00 Sinnigen deficit: pt 17:45: [id number] 00 Respiratory lung sounds Respirator Resolve 2015-07-16 Luz Maria deficit y d 07-15 18:27:00 Arvind 18:27: [id number] 00 Elimination urinary Eliminatio Resolve 2015-08-15 Luz Maria incontinenc n d 07-15 16:23:00 Samuels e 18:27: [id number] 00 Neuro depressive Neuro/Emot Resolve 2016-03-17 Luz Maria feelings ion d 07-15 15:00:00 Samuels present 18:27: [id number] 00 Elimination urinary Eliminatio Resolve 2015-09-16 Luz Maria incontinenc n d 09-15 18:04:00 Arvind e 18:04: [id number] 00 Elimination urinary Eliminatio Resolve 2015-11-12 Luz Maria incontinenc n d 10-02 16:30:00 Arvind e 15:29: [id number] 00 Cardio edema Cardiovasc Resolve 2016-09-08 Shoshana ular d 10-15 21:45:00 Jerram [employer] 15:00: [id number] 00 Sensory impaired Sensory Resolve 2016-03-17 Shoshana verbal d 10-15 15:00:00 Jerram [employer] communicati 15:00: [id number] on 00 Elimination recurring Eliminatio Resolve 2015-12-10 Shoshana UTI n d 10-15 15:20:00 Jerram [employer] 15:00: [id number] 00 Pain knowledge/s Pain Mgmt Resolve 2015-12-10 Luz Maria kill gretta 11-11 15:20:00 Arvind deficit: pt 16:30: [id number] 00 Cardio hypertensio Cardiovasc Unknown Luz Maria n rory 11-11 Arvind 16:30: [id number] 00 Elimination diarrhea Eliminatio Resolve 2015-12-10 Luz Maria n d 11-11 15:20:00 Arvind 16:30: [id number] 00 Medication oral med Meds Resolve 2016-09-08 Luz Maria assistance d 11-11 21:45:00 Samuels required 16:30: [id number] 00 Medication knowledge/s Meds Resolve 2016-03-17 Luz Maria kill d 8-31 15:00:00 Samuels deficit: pt 16:30: [id number] 00 Elimination urinary Eliminatio Resolve 2015-12-10 Almaz frequency n d 11-12 15:20:00 Knox 15:00: [id number] 00 Elimination urinary Eliminatio Resolve 2015-12-10 Almaz incontinenc n d 11-19 15:20:00 Knox e 14:00: [id number] 00 Safety fall risk Safety Resolve 2016-03-17 Luz Maria factor d 9 15:00:00 Samuels present 15:20: [id number] 00 Nutrition knowledge/s Nutrition Resolve 2015-032016-03-17 Almaz kill d 0 15:00:00 Knox deficit: pt 13:15: [id number] 00 Elimination urinary Eliminatio Resolve 2015-032016-01-07 Luz Maria incontinenc n d 0-20 16:01:00 Arvind e 15:28: [id number] 00 Pain frequent Pain Mgmt Resolve 2015-032018-04-26 Luz Maria pain d 0-26 15:08:00 Samuels 16:01: [id number] 00 Respiratory lung sounds Respirator Resolve 2015-032016-03-17 Luz Maria deficit y d 0-26 15:00:00 Arvind 16:01: [id number] 00 Respiratory dyspnea Respirator Resolve 2016-09-08 Luz Maria present y d 03-17 21:45:00 Arvind 15:00: [id number] 00 Integument pressure Integument Resolve 2018-06-27 Luz Maria ulcer d 03-17 15:00:00 Samuels present 15:00: [id number] 00 Integument skin Integument Resolve 2016-03-17 Luz Maria integrity d 1 15:00:00 Samuels risk 15:00: [id number] 00 Nutrition changing Nutrition Resolve 2016-09-20 Luz Maria weight/appe d 03-17 15:30:00 Arvind tite 15:00: [id number] 00 Nutrition knowledge/s Nutrition Resolve 2016-08-16 Almaz kill d 1-12 15:30:00 Knox deficit: pt 16:10: [id number] 00 Medication knowledge/s Meds Resolve 2016-09-08 Almaz kill d 1-12 21:45:00 Knox deficit: pt 16:10: [id number] 00 Nutrition nutritional Nutrition Resolve 2016-08-16 Luz Maria restriction d 2- 15:30:00 Samuels s 15:30: [id number] 00 Musculoskel transfer Musculoske Unknown Luz Maria etal assistance letal 05-06 Samuels required 15:15: [id number] 00 Musculoskel requires Musculoske Unknown Luz Maria etal human letal 05-06 Samuels assist to 15:15: [id number] leave home 00 Sensory impaired Sensory Resolve 2016-10-06 Stephanie verbal d 3 15:00:00 Haile communicati 15:35: [id number] on 00 Safety fall risk Safety Resolve 2016-08-16 Stephanie factor d 3 15:30:00 Haile present 15:35: [id number] 00 Safety risk for Safety Resolve 2016-08-16 Stephanie hospitaliza d 3 15:30:00 Haile tion 15:35: [id number] 00 Integument stasis Integument Resolve 2016-09-08 Stephanie ulcer d 07-08 21:45:00 Haile present 15:30: [id number] 00 Integument skin Integument Resolve 2016-09-08 Stephanie integrity d 07-08 21:45:00 Haile risk 15:30: [id number] 00 Neuro impaired Neuro/Emot Resolve 2016-10-06 Stephanie decision-ma ion d 08-10 15:00:00 Haile jacinda 16:00: [id number] 00 Safety risk for Safety Resolve 2016-09-08 Stephanie hospitaliza d 6- 21:45:00 Haile tion 16:00: [id number] 00 Musculoskel requires Musculoske Unknown Stephanie etal human letal 08-23 Haile assist to 16:00: [id number] leave home 00 Nutrition nutritional Nutrition Resolve 2016-09-20 Stephanie restriction d 09-06 15:30:00 Haile s 15:20: [id number] 00 Neuro depressive Neuro/Emot Resolve 2018-06-20 Stephanie feelings ion d 09-06 16:00:00 Haile present 15:20: [id number] 00 Safety fall risk Safety Resolve 2016-09-08 Stephanie factor d 09-06 21:45:00 Haile present 15:20: [id number] 00 Musculoskel transfer Musculoske Unknown Stephanie etal assistance letal 09-06 Haile required 15:20: [id number] 00 Pain frequent Pain Mgmt Unknown Stephanie pain 10-01 Haile 15:20: [id number] 00 Cardio edema Cardiovasc Resolve 2017-03-03 Stephanie ular d 10-01 16:22:00 Haile 15:20: [id number] 00 Activity ADL Activity Resolve 2016-10-06 Stephanie assistance d 10-01 15:00:00 Haile required 15:20: [id number] 00 Safety risk for Safety Resolve 2016-10-06 Stephanie hospitaliza d 10-01 15:00:00 Haile tion 15:20: [id number] 00 Musculoskel requires Musculoske Unknown Stephanie etal human letal 10-01 Haile assist to 15:20: [id number] leave home 00 Medication knowledge/s Meds Resolve 2016-10-06 Almaz kill d 10-04 15:00:00 Knox deficit: pt 14:55: [id number] 00 Medication knowledge/s Meds Resolve 2017-03-03 Almaz kill d 10-14 16:22:00 Knox deficit: pt 15:30: [id number] 00 Safety can be left Safety Resolve 2017-03-03 Demetria alone for d 10-21 16:22:00 Lizett only short 15:00: [id number] periods 00 Sensory impaired Sensory Resolve 2017-03-03 Irene verbal d 10-28 16:22:00 Mara majano 16:00: [id number] on 00 Neuro impaired Neuro/Emot Resolve 2017-03-03 Irene decision-ma ion d 10-28 16:22:00 Mara monaco 16:00: [id number] 00 Musculoskel requires Musculoske Unknown Irene etal special letal 10-28 Mara noelat 16:00: [id number] ion 00 Nutrition nutritional Nutrition Resolve 2017-03-03 Bryan restriction d 11-05 16:22:00 Mason RN s 15:28: [id number] 00 Safety fall risk Safety Resolve 2017-03-03 Bryan factor d 11-05 16:22:00 Mason RN present 15:28: [id number] 00 Musculoskel transfer Musculoske Unknown Bryan etal assistance letal 11-05 Mason RN required 15:28: [id number] 00 Respiratory dyspnea Respirator Resolve 2017-03-03 Almaz present y d 11-11 16:22:00 Knox 15:30: [id number] 00 Respiratory lung sounds Respirator Resolve 2016-032017-03-03 Sindhu deficit y d 0-12 16:22:00 Uribe 16:22: [id number] 00 Safety risk for Safety Resolve 2016-032017-03-03 Sindhu hospitaliza d 0-12 16:22:00 Uribe tion 16:22: [id number] 00 Integument pressure Integument Unknown 2016-03 Angelica ulcer 0-23 Farhat present 16:00: [id number] 00 Integument stasis Integument Active 2016-03 Angelica ulcer 0-23 Farhat present 16:00: [id number] 00 Integument skin Integument Resolve 2016-032017-03-03 Angelica integrity d 0-23 16:22:00 Farhat risk 16:00: [id number] 00 Elimination urinary Eliminatio Resolve 2016-032017-03-03 Angelica incontinenc n d 04-12 16:22:00 [place] e 17:25: [id number] 00 Elimination constipatio Eliminatio Resolve 2016-032017-03-03 Angelica n n d 04-12 16:22:00 [place] 17:25: [id number] 00 Integument other wound Integument Resolve 2016-032017-03-03 Angelica present d 2- 16:22:00 [place] 16:22: [id number] 00 Elimination bowel Eliminatio Resolve 2016-032017-03-03 Angelica incontinenc n d 05-04 16:22:00 Farhat e 16:22: [id number] 00 Endo/Enrique anti-coagul Endo/Enrique Resolve 2016-032018-06-20 Angelica ation d 05-09 16:00:00 Farhat therapy 16:03: [id number] 00 Elimination urinary Eliminatio Resolve 2016-032017-11-24 Angelica incontinenc n d 05-09 16:55:00 [place] e 16:03: [id number] 00 Elimination bowel Eliminatio Resolve 2016-032017-11-24 Angelica incontinenc n d 05-09 16:55:00 Farhat e 16:03: [id number] 00 Respiratory dyspnea Respirator Resolve 2016-032018-03-01 Almaz present y d 05-11 15:31:00 Knox 15:50: [id number] 00 Safety fall risk Safety Resolve 2017-11-24 Sindhu factor d 03-15 16:55:00 Uribe present 16:20: [id number] 00 Safety risk for Safety Resolve 2017-11-24 Sindhu hospitaliza d 03-15 16:55:00 Uribe tion 16:20: [id number] 00 Safety can be left Safety Active Sindhu alone for 03-15 Uribe only short 16:20: [id number] periods 00 24 Hr Diet knowledge/s NT: 24Hr Resolve 2017-04-13 Bia kill Diet d 04-13 17:00:00 Justice deficit - 17:00: [id number] pt 00 24 Hr Diet knowledge/s NT: 24Hr Resolve 2017-04-13 Bia kill Diet d 04-13 17:00:00 Justice deficit - 17:00: [id number] cg 00 Integument skin Integument Resolve 2017-11-24 Angelica integrity d 05-06 16:55:00 [place] risk 16:38: [id number] 00 Neuro impaired Neuro/Emot Active Angelica decision-ma ion 05-06 Farhat monaco 16:38: [id number] 00 Safety cannot be Safety Active Angelica left alone 05-06 [place] 16:38: [id number] 00 Musculoskel requires Musculoske Resolve 2018-06-20 Angelica etal human letal d 05-06 16:00:00 [place] assist to 16:38: [id number] leave home 00 Musculoskel requires Musculoske Resolve 2018-06-20 Angelica etal special letal d 05-06 16:00:00 [place] transportat 16:38: [id number] ion 00 Musculoskel transfer Musculoske Resolve 2018-06-20 Angelica etal assistance letal d 05-06 16:00:00 Farhat required 16:38: [id number] 00 Test/Treatm venipunctur Test/Injec Active Angelica ent e ordered t/Fabrice 06-03 Noelle [id number] Elimination constipatio Eliminatio Resolve 2017-11-24 Angelica n n d 06-03 16:55:00 Noelle 19:06: [id number] 00 Neuro confusion Neuro/Emot Active Angelica present ion 06-03 Noelle 19:06: [id number] 00 Medication potential Meds Resolve 2018-06-20 Angelica clinically d 06-03 16:00:00 Noelle significant 19:06: [id number] medication 00 issue Medication oral med Meds Resolve 2018-06-06 Angelica assistance d 06-03 15:00:00 Noelle required 19:06: [id number] 00 Medication knowledge/s Meds Resolve 2018-06-20 Angelica kill d 06-03 16:00:00 Noelle deficit: pt 19:06: [id number] 00 Elimination urinary Eliminatio Resolve 2017-11-24 Angelica urgency n d 09-29 16:55:00 Noelle 15:32: [id number] 00 Elimination urinary Eliminatio Resolve 2017-11-24 Angelica frequency n d 09-29 16:55:00 Noelle 15:32: [id number] 00 Safety risk for Safety Resolve 2018-04-20 Almaz hospitaliza d 9-20 14:59:00 Knox tion 16:31: [id number] 00 Integument skin Integument Resolve 2017-032018-04-20 Angelica integrity d 0-18 14:59:00 Noelle risk 14:11: [id number] 00 Elimination urinary Eliminatio Resolve 2017-032018-12-21 Angelica incontinenc n d 0-18 15:15:00 Noelle e 14:11: [id number] 00 Safety fall risk Safety Resolve 2017-032018-04-20 Angelica factor d 0-18 14:59:00 Noelle present 14:11: [id number] 00 Integument pressure Integument Unknown Angelica ulcer 04-06 Noelle present 14:59: [id number] 00 Integument skin Integument Resolve 2018-06-27 Angelica integrity d 2-13 15:00:00 Noelle risk 15:08: [id number] 00 Elimination recurring Eliminatio Resolve 2018-12-21 Angelica UTI n d 2-13 15:15:00 Noelle 15:08: [id number] 00 Activity ADL Activity Active Angelica assistance 04-26 Noelle required 15:08: [id number] 00 Activity self-care Activity Resolve 2018-11-30 Angelica deficit d 2-13 14:26:00 Noelle 15:08: [id number] 00 Safety risk for Safety Resolve 2018-06-20 Angelica hospitaliza d 2-13 16:00:00 Noelle tion 15:08: [id number] 00 Safety fall risk Safety Resolve 2018-06-20 Angelica factor d 2-13 16:00:00 Noelle present 15:08: [id number] 00 Nutrition knowledge/s Nutrition Active Angelica kill 06-20 Noelle deficit: pt 16:00: [id number] 00 Nutrition nutritional Nutrition Active Angelica restriction 06-20 Noelle s 16:00: [id number] 00 Endo/Enrique anti-coagul Endo/Enrique Active Angelica ation 4-16 Noelle therapy 15:00: [id number] 00 Safety fall risk Safety Active Angelica factor 4-16 Noelle present 15:00: [id number] 00 Safety risk for Safety Active Angelica hospitaliza 4-16 Noelle tion 15:00: [id number] 00 Medication knowledge/s Meds Resolve 2018-08-03 Angelica darnell d 4-16 16:00:00 Noelle deficit: pt 15:00: [id number] 00 Musculoskel transfer Musculoske Unknown Angelica etal assistance letal 06-27 Noelle required 15:00: [id number] 00 Musculoskel requires Musculoske Unknown Angelica etal human letal -16 Noelle assist to 15:00: [id number] leave home 00 Elimination knowledge/s Eliminatio Resolve 2018-12-21 Angelica darnell n d 07-04 15:15:00 Noelle deficit: pt 15:15: [id number] 00 Test/Treatm tests Test/Injec Active Angelica ent ordered t/Fabrice 07-07 Noelle [id number] Musculoskel requires Musculoske Unknown Angelica etal special letal 07-18 Noelle transportat 15:45: [id number] ion 00 Medication knowledge/s Meds Resolve 2018-2018-08-31 Angelica darnell d 08-10 16:53:00 Marianela deficit: pt 15:30: [employer] 00 [id number] Integument skin Integument Active Angelica integrity 08-24 Noelle risk 16:02: [id number] 00 Medication knowledge/s Meds Resolve 2018-09-22 Angelica darnell d 09-07 15:00:00 Marianela deficit: pt 15:30: [employer] 00 [id number] Respiratory dyspnea Respirator Active Angelica present y 11-30 Noelle 14:26: [id number] 00 Sensory impaired Sensory Active Zoila verbal 12-09 [place] communicati 10:20: [id number] on 00 Sensory impaired Sensory Active Zoila hearing 12-09 [place] 10:20: [id number] 00 Activity self-care Activity Active 2018-03 Angelica deficit 0-10 Noelle 15:15: [id number] 00 Elimination urinary Eliminatio Active 2018-03 Angelica incontinenc n 0-17 Noelle e 15:33: [id number] 00 Allergies, Adverse Reactions, Alerts Allergy Name [...] (SIG) Name Name acetaminoph acetaminoph 2017- No Traill 2 tab Unknown en 325 mg en 325 mg 11-28 Bobo MORENO tablet tablet amLODIPine amLODIPine 2016- No Traill 1 tab Unknown 5 mg tablet 5 mg tablet 06-26 05- Bobo MORENO aspirin 81 aspirin 81 No Traill 1 tab Unknown mg mg 6 Bobo MORENO tablet,ivania tablet,ivania yed release yed release atorvastati atorvastati No Traill 1 tab Unknown n 80 mg n 80 mg 06-26 Bobo MORENO tablet tablet baclofen 10 baclofen 10 No Traill 1 tab Unknown mg tablet mg tablet 11-28 Bobo MORENO citalopram citalopram 2016- No Traill 1 tab Unknown 10 mg 10 mg 06-26-20 Bobo MORENO tablet tablet Colace 200 Colace 200 2016- No Traill 1 tab Unknown mg capsule mg capsule 09-21 Bobo MORENO docusate docusate 2015- No Traill 3 cap Unknown sodium 100 sodium 100 11-28 0824 Bobo MORENO mg capsule mg capsule gabapentin gabapentin 2012-03 No Traill 1-2 Cap Unknown 300 mg 300 mg 2- Bobo MORENO capsule capsule guaiFENesin guaiFENesin 2016- No Traill 10 ML Unknown AC 10 AC 10 11-28 Bobo MORENO mg-100 mg/5 mg-100 mg/5 mL oral mL oral liquid liquid HYDROcodone HYDROcodone 2016- No Traill 1 tab Unknown 10 10 11-28 Bobo MORENO mg-acetamin mg-acetamin ophen 325 ophen 325 mg tablet mg tablet latanoprost latanoprost 2018- No Traill 1 drop Unknown 0.005 % eye 0.005 % eye 05-23- Bobo MORENO drops drops metoprolol metoprolol No Traill 1 tab Unknown tartrate 25 tartrate 25 03-25 Bobo MORENO mg tablet mg tablet Milk of Milk of No Traill 30 ML Unknown Magnesia Magnesia 11-28 Bobo MORENO 400 mg/5 mL 400 mg/5 mL oral oral suspension suspension nortriptyli nortriptyli 2016- No Traill 1 Cap Unknown ne 10 mg ne 10 mg 06-26- Bobo MORENO capsule capsule omeprazole omeprazole No Traill 1 Cap Unknown 20 mg 20 mg 11-29 ,Bobo capsule,del capsule,del ayed ayed release release Topamax 100 Topamax 100 2018- No Traill 1 tab Unknown mg tablet mg tablet 11-25 Bobo MORENO Topamax 25 Topamax 25 2018- No Traill 2 tab Unknown mg tablet mg tablet 04-18 Bobo MORENO Tricor 145 Tricor 145 2016- No Traill 1 tab Unknown mg tablet mg tablet 11-28 Bobo MORENO sulfamethox sulfamethox 2015- No Traill one Unknown azole 400 azole 400 09-25 Bobo MORENO tablet mg-trimetho mg-trimetho prim 80 mg prim 80 mg tablet tablet tamsulosin tamsulosin 2017- No Traill one Unknown 0.4 mg 0.4 mg 09-25 Bobo MORENO capsule capsule capsule nitrofurant nitrofurant No Traill 1 Unknown oin oin 8-11 Bobo MORENO monohydrate monohydrate /macrocryst /macrocryst als 100 mg als 100 mg capsule capsule docusate docusate 2016- No Traill 3 cap Unknown sodium 100 sodium 100 11-04 Bobo MORENO mg capsule mg capsule gentamicin gentamicin 2015-03- No Traill 1 drop Unknown 0.3 % eye 0.3 % eye 03-30 ,Bobo drops drops nortriptyli nortriptyli 2018- No Traill 2 Cap Unknown ne 10 mg ne 10 mg 04-28 Bobo MORENO (20 mg) capsule capsule hydroCHLORO hydroCHLORO No Traill 1 Unknown thiazide 25 thiazide 25 06-24 ,Bobo tablet mg tablet mg tablet (25 mg) citalopram citalopram No Traill 1tab Unknown 20 mg 20 mg 07-01 ,Bobo tablet tablet fenofibrate fenofibrate 2016- No Traill 1 Unknown nanocrystal nanocrystal 07-08 Bobo MORENO tablet lized 145 lized 145 (145 mg tablet mg tablet mg) doxycycline doxycycline 2016- No Traill 1 Unknown hyclate 100 hyclate 100 07-09- Bobo MORENO tablet mg tablet mg tablet (100 mg) Colace 100 Colace 100 2016-03- No Traill 3 Unknown mg capsule mg capsule 09-29 Bobo MORENO capsule s fenofibrate fenofibrate 2016-03- No Traill 1 cap Unknown 150 mg 150 mg 03-15 ,Bobo capsule capsule acetaminoph acetaminoph 2018- No Traill 1-2 Unknown en 500 mg en 500 mg 03-15 Bobo MORENO Tablets tablet tablet clindamycin clindamycin 2017- No Traill 150 mg Unknown HCl 150 mg HCl 150 mg 04-04- Bobo MORENO capsule capsule doxycycline doxycycline 2017- No Traill 1 Unknown monohydrate monohydrate 05-17 Bobo MORENO 100 mg 100 mg capsule capsule senna 8.6 senna 8.6 No Traill 1 tab Unknown mg tablet mg tablet 06-03 Bobo MORENO hold for diarrhe a Colace 100 Colace 100 No Traill Unknown Unknown mg capsule mg capsule 09-29 Bobo MORENO tamsulosin tamsulosin No Traill Unknown Unknown 0.4 mg 0.4 mg 09-29 ,Bobo capsule capsule doxycycline doxycycline 2018- No Traill Unknown Unknown 100 mg 100 mg 04-07 Bobo tablet tablet mupirocin 2 mupirocin 2 2018- No Traill Unknown Unknown % topical % topical 04-07 ,Bobo ointment ointment mupirocin 2 mupirocin 2 No Traill Unknown Unknown % topical % topical 04-07 ,Bobo ointment ointment oxybutynin oxybutynin No [place] Unknown Unknown chloride 5 chloride 5 04-07 rthy mg tablet mg tablet Rocio benzonatate benzonatate 2018- No Traill Unknown Unknown 100 mg 100 mg 08-17- ,Bobo capsule capsule azithromyci azithromyci 2018- No Traill Unknown Unknown n 250 mg n 250 mg 09-01 ,Bobo tablet tablet benzonatate benzonatate 2018- No Traill Unknown Unknown 100 mg 100 mg 09-04 ,Bobo capsule capsule topiramate topiramate No Traill Unknown Unknown 25 mg 25 mg 09-22 Bobo tablet tablet Neosporin Neosporin No Traill Unknown Unknown (lenard-segun-po (lenard-segun-po 09-22 MD,Bobo lym) 3.5 lym) 3.5 mg-400 mg-400 unit-5,000 unit-5,000 unit/gram unit/gram top top ointment ointment Tylenol 325 Tylenol 325 No Traill Unknown Unknown mg capsule mg capsule 09-22 MD,Bobo Artificial Artificial No [place] Unknown Unknown Tears Tears 09-22 MD,Bobo Xalatan Xalatan No [place] Unknown Unknown 0.005 % eye 0.005 % eye 09-22 ,Bobo drops drops Blue-emu Blue-emu No Traill Unknown Unknown super super 09-22 ,Bobo strenth strenth nortriptyli nortriptyli No Traill Unknown Unknown ne 10 mg ne 10 [...]
--- OUTSIDE RECORDS SUMMARY | 2019-04-15 14:08 | XMS REPORT ---
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 side Aphasia Aphasia Diagnosis Active Angelica following following 11-28 Noelle unspecified unspecified [id number] cerebrovasc cerebrovasc ular ular disease disease Chronic Chronic Diagnosis Active Angelica venous venous 11-28 Noelle hypertensio hypertensio [id number] n w/o comp n w/o comp of l low of l low extrem extrem Essential Essential Diagnosis Active Angelica (primary) (primary) 11-28 Noelle hypertensio hypertensio [id number] n n 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-28 Noelle emo def emo def [id number] following following unsp unsp cerebvasc cerebvasc disease disease 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, disorder, 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 recurrent, recurrent, unspecified unspecified Unspecified Unspecified Diagnosis Active Angelica open-angle open-angle Noelle glaucoma, glaucoma, [id number] stage stage unspecified unspecified Mixed Mixed Diagnosis Active Angelica hyperlipide hyperlipide Noelle lilly lilly [id number] Acquired Acquired Diagnosis Active Angelica absence of absence of Noelle unspecified unspecified [id number] leg above leg above knee knee Thrombotic Thrombotic Diagnosis Active Angelica microangiop microangiop Noelle rehan rehan [id number] Medication knowledge/s Meds Resolve 2015-09-16 Jackie darnell d 2-11 18:04:00 Sinnigen deficit: pt 15:50: [id number] 00 Diagnoses knowledge/s Diagnoses Resolve 2016-03-17 Tammee kill d 2- 15:00:00 Cesar-Hor deficit: pt 15:50: an 00 Diagnoses knowledge/s Diagnoses Resolve 2016-03-17 Tammee kill d 2-11 15:00:00 Cesar-Hor deficit: cg 15:50: an 00 Pain knowledge/s Pain Mgmt Resolve 2015-09-16 Luz Maria kill d 3 18:04:00 Smauels deficit: pt 15:45: [id number] 00 Cardio hypertensio Cardiovasc Resolve 2016-09-08 Luz Maria n ular d 3 21:45:00 Samuels 15:45: [id number] 00 Integument skin Integument Resolve 2015-09-16 Luz Maria integrity d 05-14 18:04:00 Samuels risk 15:45: [id number] 00 Nutrition knowledge/s Nutrition Resolve 2015-12-10 Luz Maria kill d 3 15:20:00 Samuels deficit: pt 15:45: [id number] 00 Elimination constipatio Eliminatio Resolve 2015-09-16 Luz Maria n n d 05-14 18:04:00 Samuels 15:45: [id number] 00 Elimination urinary Eliminatio Resolve 2015-05-15 Luz Maria incontinenc n d 3 15:45:00 Arvind e 15:45: [id number] 00 Activity ADL Activity Resolve 2016-03-17 Luz Maria assistance d 3 15:00:00 Samuels required 15:45: [id number] 00 Safety fall risk Safety Resolve 2015-09-16 Luz Maria factor d 05-14 18:04:00 Samuels present 15:45: [id number] 00 Medication injectable Meds Resolve 2015-09-16 Luz Maria med d 05-14 18:04:00 Arvind assistance 15:45: [id number] required 00 Musculoskel transfer Musculoske Unknown Luz Maria etal assistance letal 05-14 Arvind required 15:45: [id number] 00 Safety knowledge/s Safety Resolve 2015-09-16 Jackie kill d 3-17 18:04:00 Sinnigen deficit: pt 17:45: [id number] 00 Respiratory lung sounds Respirator Resolve 2015-07-16 Luz Maria deficit y d 07-15 18:27:00 Arvind 18:27: [id number] 00 Elimination urinary Eliminatio Resolve 2015-08-15 Luz Maria incontinenc n d 07-15 16:23:00 Samuels e 18:27: [id number] 00 Neuro depressive Neuro/Emot Resolve 2016-03-17 Luz Maria feelings ion d 07-15 15:00:00 Samuels present 18:27: [id number] 00 Elimination urinary Eliminatio Resolve 2015-09-16 Luz Maria incontinenc n d 09-15 18:04:00 Arvind e 18:04: [id number] 00 Elimination urinary Eliminatio Resolve 2015-11-12 Luz Maria incontinenc n d 10-02 16:30:00 Arvind e 15:29: [id number] 00 Cardio edema Cardiovasc Resolve 2016-09-08 Shoshana ular d 10-15 21:45:00 Jerram [employer] 15:00: [id number] 00 Sensory impaired Sensory Resolve 2016-03-17 Shoshana verbal d 10-15 15:00:00 Jerram [employer] communicati 15:00: [id number] on 00 Elimination recurring Eliminatio Resolve 2015-12-10 Shoshana UTI n d 10-15 15:20:00 Jerram [employer] 15:00: [id number] 00 Pain knowledge/s Pain Mgmt Resolve 2015-12-10 Luz Maria kill gretta 11-11 15:20:00 Arvind deficit: pt 16:30: [id number] 00 Cardio hypertensio Cardiovasc Unknown Luz Maria n rory 11-11 Arvind 16:30: [id number] 00 Elimination diarrhea Eliminatio Resolve 2015-12-10 Luz Maria n d 11-11 15:20:00 Arvind 16:30: [id number] 00 Medication oral med Meds Resolve 2016-09-08 Luz Maria assistance d 11-11 21:45:00 Samuels required 16:30: [id number] 00 Medication knowledge/s Meds Resolve 2016-03-17 Luz Maria kill d 8-31 15:00:00 Samuels deficit: pt 16:30: [id number] 00 Elimination urinary Eliminatio Resolve 2015-12-10 Almaz frequency n d 11-12 15:20:00 [place] 15:00: [id number] 00 Elimination urinary Eliminatio Resolve 2015-12-10 Almaz incontinenc n d 11-19 15:20:00 [place] e 14:00: [id number] 00 Safety fall risk Safety Resolve 2016-03-17 Luz Maria factor d 9 15:00:00 Samuels present 15:20: [id number] 00 Nutrition knowledge/s Nutrition Resolve 2015-032016-03-17 Almaz kill d 0 15:00:00 [place] deficit: pt 13:15: [id number] 00 Elimination urinary Eliminatio Resolve 2015-032016-01-07 Luz Maria incontinenc n d 0-20 16:01:00 Arvind e 15:28: [id number] 00 Pain frequent Pain Mgmt Resolve 2015-032018-04-26 Luz Maria pain d 0-26 15:08:00 Samuels 16:01: [id number] 00 Respiratory lung sounds Respirator Resolve 2015-032016-03-17 Luz Maria deficit y d 0-26 15:00:00 Arvind 16:01: [id number] 00 Respiratory dyspnea Respirator Resolve 2016-09-08 Luz Maria present y d 03-17 21:45:00 Arvind 15:00: [id number] 00 Integument pressure Integument Resolve 2018-06-27 Luz Maria ulcer d 03-17 15:00:00 Samuels present 15:00: [id number] 00 Integument skin Integument Resolve 2016-03-17 Luz Maria integrity d 1 15:00:00 Samuels risk 15:00: [id number] 00 Nutrition changing Nutrition Resolve 2016-09-20 Luz Maria weight/appe d 03-17 15:30:00 Arvind tite 15:00: [id number] 00 Nutrition knowledge/s Nutrition Resolve 2016-08-16 Almaz kill d 1-12 15:30:00 [place] deficit: pt 16:10: [id number] 00 Medication knowledge/s Meds Resolve 2016-09-08 Almaz kill d 1-12 21:45:00 [place] deficit: pt 16:10: [id number] 00 Nutrition nutritional Nutrition Resolve 2016-08-16 Luz Maria restriction d 2- 15:30:00 Samuels s 15:30: [id number] 00 Musculoskel transfer Musculoske Unknown Luz Maria etal assistance letal 05-06 Samuels required 15:15: [id number] 00 Musculoskel requires Musculoske Unknown Luz Maria etal human letal 05-06 Samuels assist to 15:15: [id number] leave home 00 Sensory impaired Sensory Resolve 2016-10-06 Stephanie verbal d 3 15:00:00 Haile communicati 15:35: [id number] on 00 Safety fall risk Safety Resolve 2016-08-16 Stephanie factor d 3 15:30:00 Haile present 15:35: [id number] 00 Safety risk for Safety Resolve 2016-08-16 Stephanie hospitaliza d 3 15:30:00 Haile tion 15:35: [id number] 00 Integument stasis Integument Resolve 2016-09-08 Stephanie ulcer d 07-08 21:45:00 Haile present 15:30: [id number] 00 Integument skin Integument Resolve 2016-09-08 Stephanie integrity d 07-08 21:45:00 Haile risk 15:30: [id number] 00 Neuro impaired Neuro/Emot Resolve 2016-10-06 Stephanie decision-ma ion d 08-10 15:00:00 Haile jacinda 16:00: [id number] 00 Safety risk for Safety Resolve 2016-09-08 Stephanie hospitaliza d 6- 21:45:00 Haile tion 16:00: [id number] 00 Musculoskel requires Musculoske Unknown Stephanie etal human letal 08-23 Haile assist to 16:00: [id number] leave home 00 Nutrition nutritional Nutrition Resolve 2016-09-20 Stephanie restriction d 09-06 15:30:00 Haile s 15:20: [id number] 00 Neuro depressive Neuro/Emot Resolve 2018-06-20 Stephanie feelings ion d 09-06 16:00:00 Haile present 15:20: [id number] 00 Safety fall risk Safety Resolve 2016-09-08 Stephanie factor d 09-06 21:45:00 Haile present 15:20: [id number] 00 Musculoskel transfer Musculoske Unknown Stephanie etal assistance letal 09-06 Haile required 15:20: [id number] 00 Pain frequent Pain Mgmt Unknown Stephanie pain 10-01 Haile 15:20: [id number] 00 Cardio edema Cardiovasc Resolve 2017-03-03 Stephanie ular d 10-01 16:22:00 Haile 15:20: [id number] 00 Activity ADL Activity Resolve 2016-10-06 Stephanie assistance d 10-01 15:00:00 Haile required 15:20: [id number] 00 Safety risk for Safety Resolve 2016-10-06 Stephanie hospitaliza d 10-01 15:00:00 Haile tion 15:20: [id number] 00 Musculoskel requires Musculoske Unknown Stephanie etal human letal 10-01 Haile assist to 15:20: [id number] leave home 00 Medication knowledge/s Meds Resolve 2016-10-06 Almaz kill d 10-04 15:00:00 [place] deficit: pt 14:55: [id number] 00 Medication knowledge/s Meds Resolve 2017-03-03 Almaz kill d 10-14 16:22:00 [place] deficit: pt 15:30: [id number] 00 Safety can be left Safety Resolve 2017-03-03 Demetria alone for d 10-21 16:22:00 Lizett only short 15:00: [id number] periods 00 Sensory impaired Sensory Resolve 2017-03-03 Irene verbal d 10-28 16:22:00 Mara majano 16:00: [id number] on 00 Neuro impaired Neuro/Emot Resolve 2017-03-03 Irene decision-ma ion d 10-28 16:22:00 Mara monaco 16:00: [id number] 00 Musculoskel requires Musculoske Unknown Irene etal special letal 10-28 Mara noelat 16:00: [id number] ion 00 Nutrition nutritional Nutrition Resolve 2017-03-03 Bryan restriction d 11-05 16:22:00 Mason RN s 15:28: [id number] 00 Safety fall risk Safety Resolve 2017-03-03 Bryan factor d 11-05 16:22:00 Mason RN present 15:28: [id number] 00 Musculoskel transfer Musculoske Unknown Bryan etal assistance letal 11-05 Mason RN required 15:28: [id number] 00 Respiratory dyspnea Respirator Resolve 2017-03-03 Almaz present y d 11-11 16:22:00 [place] 15:30: [id number] 00 Respiratory lung sounds Respirator Resolve 2016-032017-03-03 Sindhu deficit y d 0-12 16:22:00 Uribe 16:22: [id number] 00 Safety risk for Safety Resolve 2016-032017-03-03 Sindhu hospitaliza d 0-12 16:22:00 Uribe tion 16:22: [id number] 00 Integument pressure Integument Unknown 2016-03 Angelica ulcer 0-23 Farhat present 16:00: [id number] 00 Integument stasis Integument Active 2016-03 Angelica ulcer 0-23 [employer] present 16:00: [id number] 00 Integument skin Integument Resolve 2016-032017-03-03 Angelica integrity d 0-23 16:22:00 Farhat risk 16:00: [id number] 00 Elimination urinary Eliminatio Resolve 2016-032017-03-03 Angelica incontinenc n d 04-12 16:22:00 [employer] e 17:25: [id number] 00 Elimination constipatio Eliminatio Resolve 2016-032017-03-03 Angelica n n d 04-12 16:22:00 Farhat 17:25: [id number] 00 Integument other wound Integument Resolve 2016-032017-03-03 Angelcia present d 2- 16:22:00 [employer] 16:22: [id number] 00 Elimination bowel Eliminatio Resolve 2016-032017-03-03 Angelica incontinenc n d 05-04 16:22:00 [employer] e 16:22: [id number] 00 Endo/Enrique anti-coagul Endo/Enrique Resolve 2016-032018-06-20 Angelica ation d 05-09 16:00:00 Farhat therapy 16:03: [id number] 00 Elimination urinary Eliminatio Resolve 2016-032017-11-24 Angelica incontinenc n d 05-09 16:55:00 [employer] e 16:03: [id number] 00 Elimination bowel Eliminatio Resolve 2016-032017-11-24 Angelica incontinenc n d 05-09 16:55:00 [employer] e 16:03: [id number] 00 Respiratory dyspnea Respirator Resolve 2016-032018-03-01 Almaz present y d 05-11 15:31:00 [place] 15:50: [id number] 00 Safety fall risk Safety Resolve 2017-11-24 Sindhu factor d 03-15 16:55:00 Uribe present 16:20: [id number] 00 Safety risk for Safety Resolve 2017-11-24 Sindhu hospitaliza d 03-15 16:55:00 Uribe tion 16:20: [id number] 00 Safety can be left Safety Active Sindhu alone for 03-15 Uribe only short 16:20: [id number] periods 00 24 Hr Diet knowledge/s NT: 24Hr Resolve 2017-04-13 Bia kill Diet d 04-13 17:00:00 [place] deficit - 17:00: [id number] pt 00 24 Hr Diet knowledge/s NT: 24Hr Resolve 2017-04-13 Bia kill Diet d 04-13 17:00:00 [place] deficit - 17:00: [id number] cg 00 Integument skin Integument Resolve 2017-11-24 Angelica integrity d 05-06 16:55:00 Farhat risk 16:38: [id number] 00 Neuro impaired Neuro/Emot Active Angelica decision-ma ion 05-06 Farhat monaco 16:38: [id number] 00 Safety cannot be Safety Active Angelica left alone 05-06 [employer] 16:38: [id number] 00 Musculoskel requires Musculoske Resolve 2018-06-20 Angelica etal human letal d 05-06 16:00:00 Farhat assist to 16:38: [id number] leave home 00 Musculoskel requires Musculoske Resolve 2018-06-20 Angelica etal special letal d 05-06 16:00:00 [employer] transportat 16:38: [id number] ion 00 Musculoskel transfer Musculoske Resolve 2018-06-20 Angelica etal assistance letal d 05-06 16:00:00 Farhat required 16:38: [id number] 00 Test/Treatm venipunctur Test/Injec Active Angelica ent e ordered t/Fabrice 06-03 Noelle [id number] Elimination constipatio Eliminatio Resolve 2017-11-24 Angelica n n d 06-03 16:55:00 Noelle 19:06: [id number] 00 Neuro confusion Neuro/Emot Active Angelica present ion 06-03 Noelle 19:06: [id number] 00 Medication potential Meds Resolve 2018-06-20 Angelica clinically d 06-03 16:00:00 Noelle significant 19:06: [id number] medication 00 issue Medication oral med Meds Resolve 2018-06-06 Angelica assistance d 06-03 15:00:00 Noelle required 19:06: [id number] 00 Medication knowledge/s Meds Resolve 2018-06-20 Angelica kill d 06-03 16:00:00 Noelle deficit: pt 19:06: [id number] 00 Elimination urinary Eliminatio Resolve 2017-11-24 Angelica urgency n d 09-29 16:55:00 Noelle 15:32: [id number] 00 Elimination urinary Eliminatio Resolve 2017-11-24 Angelica frequency n d 09-29 16:55:00 Noelle 15:32: [id number] 00 Safety risk for Safety Resolve 2018-04-20 Almaz hospitaliza d 9-20 14:59:00 [place] tion 16:31: [id number] 00 Integument skin Integument Resolve 2017-032018-04-20 Angelica integrity d 0-18 14:59:00 Noelle risk 14:11: [id number] 00 Elimination urinary Eliminatio Resolve 2017-032018-12-21 Angelica incontinenc n d 0-18 15:15:00 Noelle e 14:11: [id number] 00 Safety fall risk Safety Resolve 2017-032018-04-20 Angelica factor d 0-18 14:59:00 Noelle present 14:11: [id number] 00 Integument pressure Integument Unknown Angelica ulcer 04-06 Noelle present 14:59: [id number] 00 Integument skin Integument Resolve 2018-06-27 Angelica integrity d 2-13 15:00:00 Noelle risk 15:08: [id number] 00 Elimination recurring Eliminatio Resolve 2018-12-21 Angelica UTI n d 2-13 15:15:00 Noelle 15:08: [id number] 00 Activity ADL Activity Active Angelica assistance 04-26 Noelle required 15:08: [id number] 00 Activity self-care Activity Resolve 2018-11-30 Angelica deficit d 2-13 14:26:00 Noelle 15:08: [id number] 00 Safety risk for Safety Resolve 2018-06-20 Angelica hospitaliza d 2-13 16:00:00 Noelle tion 15:08: [id number] 00 Safety fall risk Safety Resolve 2018-06-20 Angelica factor d 2-13 16:00:00 Noelle present 15:08: [id number] 00 Nutrition knowledge/s Nutrition Active Angelica kill 06-20 Noelle deficit: pt 16:00: [id number] 00 Nutrition nutritional Nutrition Active Angelica restriction 06-20 Noelle s 16:00: [id number] 00 Endo/Enrique anti-coagul Endo/Enrique Active Angelica ation 4-16 Noelle therapy 15:00: [id number] 00 Safety fall risk Safety Active Angelica factor 4-16 Noelle present 15:00: [id number] 00 Safety risk for Safety Active Angelica hospitaliza 4-16 Noelle tion 15:00: [id number] 00 Medication knowledge/s Meds Resolve 2018-08-03 Angelica darnell d 4-16 16:00:00 Noelle deficit: pt 15:00: [id number] 00 Musculoskel transfer Musculoske Unknown Angelica etal assistance letal 06-27 Noelle required 15:00: [id number] 00 Musculoskel requires Musculoske Unknown Angelica etal human letal -16 Noelle assist to 15:00: [id number] leave home 00 Elimination knowledge/s Eliminatio Resolve 2018-12-21 Angelica darnell n d 07-04 15:15:00 Noelle deficit: pt 15:15: [id number] 00 Test/Treatm tests Test/Injec Active Angelica ent ordered t/Fabrice 07-07 Noelle [id number] Musculoskel requires Musculoske Unknown Angelica etal special letal 07-18 Noelle transportat 15:45: [id number] ion 00 Medication knowledge/s Meds Resolve 2018-2018-08-31 Angelica darnell d 08-10 16:53:00 Marianela deficit: pt 15:30: [employer] 00 [id number] Integument skin Integument Active Angelica integrity 08-24 Noelle risk 16:02: [id number] 00 Medication knowledge/s Meds Resolve 2018-09-22 Angelica darnell d 09-07 15:00:00 Marianela deficit: pt 15:30: [employer] 00 [id number] Respiratory dyspnea Respirator Active Angelica present y 11-30 Noelle 14:26: [id number] 00 Sensory impaired Sensory Active Zoila verbal 12-09 [place] communicati 10:20: [id number] on 00 Sensory impaired Sensory Active Zoila hearing 12-09 [place] 10:20: [id number] 00 Activity self-care Activity Active 2018-03 Angelica deficit 0-10 Noelle 15:15: [id number] 00 Elimination urinary Eliminatio Active 2018-03 Angelica incontinenc n 0-17 Noelle e 15:33: [id number] 00 Allergies, Adverse Reactions, Alerts Allergy Name [...] (SIG) Name Name acetaminoph acetaminoph 2017- No Tift 2 tab Unknown en 325 mg en 325 mg 11-28 Bobo MORENO tablet tablet amLODIPine amLODIPine 2016- No Tift 1 tab Unknown 5 mg tablet 5 mg tablet 06-26 05- Bobo MORENO aspirin 81 aspirin 81 No Tift 1 tab Unknown mg mg 6 Bobo MORENO tablet,ivania tablet,ivania yed release yed release atorvastati atorvastati No Tift 1 tab Unknown n 80 mg n 80 mg 06-26 Bobo MORENO tablet tablet baclofen 10 baclofen 10 No Tift 1 tab Unknown mg tablet mg tablet 11-28 Bobo MORENO citalopram citalopram 2016- No Tift 1 tab Unknown 10 mg 10 mg 06-26-20 Bobo MORENO tablet tablet Colace 200 Colace 200 2016- No Tift 1 tab Unknown mg capsule mg capsule 09-21 Bobo MORENO docusate docusate 2015- No Tift 3 cap Unknown sodium 100 sodium 100 11-28 0824 Bobo MORENO mg capsule mg capsule gabapentin gabapentin 2012-03 No Tift 1-2 Cap Unknown 300 mg 300 mg 2- Bobo MORENO capsule capsule guaiFENesin guaiFENesin 2016- No Tift 10 ML Unknown AC 10 AC 10 11-28 Bobo MORENO mg-100 mg/5 mg-100 mg/5 mL oral mL oral liquid liquid HYDROcodone HYDROcodone 2016- No Tift 1 tab Unknown 10 10 11-28 Bobo MORENO mg-acetamin mg-acetamin ophen 325 ophen 325 mg tablet mg tablet latanoprost latanoprost 2018- No Tift 1 drop Unknown 0.005 % eye 0.005 % eye 05-23- Bobo MORENO drops drops metoprolol metoprolol No Tift 1 tab Unknown tartrate 25 tartrate 25 03-25 Bobo MORENO mg tablet mg tablet Milk of Milk of No Tift 30 ML Unknown Magnesia Magnesia 11-28 Bobo MORENO 400 mg/5 mL 400 mg/5 mL oral oral suspension suspension nortriptyli nortriptyli 2016- No Tift 1 Cap Unknown ne 10 mg ne 10 mg 06-26- Bobo MORENO capsule capsule omeprazole omeprazole No Tift 1 Cap Unknown 20 mg 20 mg 11-29 ,Bobo capsule,del capsule,del ayed ayed release release Topamax 100 Topamax 100 2018- No Tift 1 tab Unknown mg tablet mg tablet 11-25 Bobo MOERNO Topamax 25 Topamax 25 2018- No Tift 2 tab Unknown mg tablet mg tablet 04-18 Bobo MORENO Tricor 145 Tricor 145 2016- No Tift 1 tab Unknown mg tablet mg tablet 11-28 Bobo MORENO sulfamethox sulfamethox 2015- No Tift one Unknown azole 400 azole 400 09-25 Bobo MORENO tablet mg-trimetho mg-trimetho prim 80 mg prim 80 mg tablet tablet tamsulosin tamsulosin 2017- No Tift one Unknown 0.4 mg 0.4 mg 09-25 Bobo MORENO capsule capsule capsule nitrofurant nitrofurant No Tift 1 Unknown oin oin 8-11 Bobo MORENO monohydrate monohydrate /macrocryst /macrocryst als 100 mg als 100 mg capsule capsule docusate docusate 2016- No Tift 3 cap Unknown sodium 100 sodium 100 11-04 Bobo MORENO mg capsule mg capsule gentamicin gentamicin 2015-03- No Tift 1 drop Unknown 0.3 % eye 0.3 % eye 03-30 ,Bobo drops drops nortriptyli nortriptyli 2018- No Tift 2 Cap Unknown ne 10 mg ne 10 mg 04-28 Bobo MORENO (20 mg) capsule capsule hydroCHLORO hydroCHLORO No Tift 1 Unknown thiazide 25 thiazide 25 06-24 ,Bobo tablet mg tablet mg tablet (25 mg) citalopram citalopram No Tift 1tab Unknown 20 mg 20 mg 07-01 ,Bobo tablet tablet fenofibrate fenofibrate 2016- No Tift 1 Unknown nanocrystal nanocrystal 07-08 Bobo MORENO tablet lized 145 lized 145 (145 mg tablet mg tablet mg) doxycycline doxycycline 2016- No Tift 1 Unknown hyclate 100 hyclate 100 07-09- Bobo MORENO tablet mg tablet mg tablet (100 mg) Colace 100 Colace 100 2016-03- No Tift 3 Unknown mg capsule mg capsule 09-29 Bobo MORENO capsule s fenofibrate fenofibrate 2016-03- No Tift 1 cap Unknown 150 mg 150 mg 03-15 ,Bobo capsule capsule acetaminoph acetaminoph 2018- No Tift 1-2 Unknown en 500 mg en 500 mg 03-15 Bobo MORENO Tablets tablet tablet clindamycin clindamycin 2017- No Tift 150 mg Unknown HCl 150 mg HCl 150 mg 04-04- Bobo MORENO capsule capsule doxycycline doxycycline 2017- No Tift 1 Unknown monohydrate monohydrate 05-17 Bobo MORENO 100 mg 100 mg capsule capsule senna 8.6 senna 8.6 No Tift 1 tab Unknown mg tablet mg tablet 06-03 Bobo MORENO hold for diarrhe a Colace 100 Colace 100 No Tift Unknown Unknown mg capsule mg capsule 09-29 Bobo MORENO tamsulosin tamsulosin No Tift Unknown Unknown 0.4 mg 0.4 mg 09-29 ,Bobo capsule capsule doxycycline doxycycline 2018- No Tift Unknown Unknown 100 mg 100 mg 04-07 Bobo tablet tablet mupirocin 2 mupirocin 2 2018- No Tift Unknown Unknown % topical % topical 04-07 ,Bobo ointment ointment mupirocin 2 mupirocin 2 No Tift Unknown Unknown % topical % topical 04-07 ,Bobo ointment ointment oxybutynin oxybutynin No [place] Unknown Unknown chloride 5 chloride 5 04-07 rthy mg tablet mg tablet Rocio benzonatate benzonatate 2018- No Tift Unknown Unknown 100 mg 100 mg 08-17- ,Bobo capsule capsule azithromyci azithromyci 2018- No Tift Unknown Unknown n 250 mg n 250 mg 09-01 ,Bobo tablet tablet benzonatate benzonatate 2018- No Tift Unknown Unknown 100 mg 100 mg 09-04 ,Bobo capsule capsule topiramate topiramate No Tift Unknown Unknown 25 mg 25 mg 09-22 Bobo tablet tablet Neosporin Neosporin No Tift Unknown Unknown (lenard-segun-po (lenard-segun-po 09-22 MD,Bobo lym) 3.5 lym) 3.5 mg-400 mg-400 unit-5,000 unit-5,000 unit/gram unit/gram top top ointment ointment Tylenol 325 Tylenol 325 No Tift Unknown Unknown mg capsule mg capsule 09-22 MD,Bobo Artificial Artificial No Tift Unknown Unknown Tears Tears 09-22 MD,Bobo Xalatan Xalatan No Tift Unknown Unknown 0.005 % eye 0.005 % eye 09-22 ,Bobo drops drops Blue-emu Blue-emu No Tift Unknown Unknown super super 09-22 ,Bobo strenth strenth nortriptyli nortriptyli No Tift Unknown Unknown ne 10 mg ne 10 [...]
--- OUTSIDE RECORDS SUMMARY | 2019-04-15 14:08 | XMS REPORT ---
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 Aphasia Aphasia Diagnosis Active Angelica following following 11-28 Noelle unspecified unspecified [id number] cerebrovasc cerebrovasc ular ular disease disease Chronic Chronic Diagnosis Active Angelica venous venous 11-28 Noelle hypertensio hypertensio [id number] n w/o comp n w/o comp of l low of l low extrem extrem Essential Essential Diagnosis Active Angelica (primary) (primary) 11-28 Onelle hypertensio hypertensio [id number] n n 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-28 Noelle emo def emo def [id number] following following unsp unsp cerebvasc cerebvasc disease disease 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, disorder, [id number] recurrent, recurrent, unspecified unspecified Unspecified Unspecified Diagnosis Active Angelica open-angle open-angle Noelle glaucoma, glaucoma, [id number] stage stage unspecified unspecified Mixed Mixed Diagnosis Active Angelica hyperlipide hyperlipide Noelle lilly lilly [id number] Acquired Acquired Diagnosis Active Angelica absence of absence of Noelle unspecified unspecified [id number] leg above leg above knee knee Thrombotic Thrombotic Diagnosis Active Angelica microangiop microangiop Noelle rehan rehan [id number] Medication knowledge/s Meds Resolve 2015-09-16 Jackie glynn 2-11 18:04:00 Sinnigen deficit: pt 15:50: [id number] 00 Diagnoses knowledge/s Diagnoses Resolve 2016-03-17 Tammee kill d 2- 15:00:00 Cesar-Hor deficit: pt 15:50: an 00 Diagnoses knowledge/s Diagnoses Resolve 2016-03-17 Tammee kill d 2-11 15:00:00 Cesar-Hor deficit: cg 15:50: an 00 Pain knowledge/s Pain Mgmt Resolve 2015-09-16 Luz Maria kill d 3 18:04:00 Samuels deficit: pt 15:45: [id number] 00 Cardio hypertensio Cardiovasc Resolve 2016-09-08 Luz Maria n ular d 3 21:45:00 Samuels 15:45: [id number] 00 Integument skin Integument Resolve 2015-09-16 Luz Maria integrity d 05-14 18:04:00 Samuels risk 15:45: [id number] 00 Nutrition knowledge/s Nutrition Resolve 2015-12-10 Luz Maria kill d 3 15:20:00 Samuels deficit: pt 15:45: [id number] 00 Elimination constipatio Eliminatio Resolve 2015-09-16 Luz Maria n n d 05-14 18:04:00 Samuels 15:45: [id number] 00 Elimination urinary Eliminatio Resolve 2015-05-15 Luz Maria incontinenc n d 3 15:45:00 rAvind e 15:45: [id number] 00 Activity ADL Activity Resolve 2016-03-17 Luz Maria assistance d 3 15:00:00 Samuels required 15:45: [id number] 00 Safety fall risk Safety Resolve 2015-09-16 Luz Maria factor d 05-14 18:04:00 Samuels present 15:45: [id number] 00 Medication injectable Meds Resolve 2015-09-16 Luz Maria med d 05-14 18:04:00 Arvind assistance 15:45: [id number] required 00 Musculoskel transfer Musculoske Unknown Luz Maria etal assistance letal 05-14 Arvind required 15:45: [id number] 00 Safety knowledge/s Safety Resolve 2015-09-16 Jackie kill d 3-17 18:04:00 Sinnigen deficit: pt 17:45: [id number] 00 Respiratory lung sounds Respirator Resolve 2015-07-16 Luz Maria deficit y d 07-15 18:27:00 Arvind 18:27: [id number] 00 Elimination urinary Eliminatio Resolve 2015-08-15 Luz Maria incontinenc n d 07-15 16:23:00 Samuels e 18:27: [id number] 00 Neuro depressive Neuro/Emot Resolve 2016-03-17 Luz Maria feelings ion d 07-15 15:00:00 Samuels present 18:27: [id number] 00 Elimination urinary Eliminatio Resolve 2015-09-16 Luz Maria incontinenc n d 09-15 18:04:00 Arvind e 18:04: [id number] 00 Elimination urinary Eliminatio Resolve 2015-11-12 Luz Maria incontinenc n d 10-02 16:30:00 Arvind e 15:29: [id number] 00 Cardio edema Cardiovasc Resolve 2016-09-08 Shoshana ular d 10-15 21:45:00 Jerram SPUD DRILLER 15:00: [id number] 00 Sensory impaired Sensory Resolve 2016-03-17 Shoshana verbal d 10-15 15:00:00 Jerram SPUD DRILLER communicati 15:00: [id number] on 00 Elimination recurring Eliminatio Resolve 2015-12-10 Shoshana UTI n d 10-15 15:20:00 Jerram SPUD DRILLER 15:00: [id number] 00 Pain knowledge/s Pain Mgmt Resolve 2015-12-10 Luz Maria kill gretta 11-11 15:20:00 Arvind deficit: pt 16:30: [id number] 00 Cardio hypertensio Cardiovasc Unknown Luz Maria n rory 11-11 Arvind 16:30: [id number] 00 Elimination diarrhea Eliminatio Resolve 2015-12-10 Luz Maria n d 11-11 15:20:00 Arvind 16:30: [id number] 00 Medication oral med Meds Resolve 2016-09-08 Luz Maria assistance d 11-11 21:45:00 Samuels required 16:30: [id number] 00 Medication knowledge/s Meds Resolve 2016-03-17 Luz Maria kill d 8-31 15:00:00 Samuels deficit: pt 16:30: [id number] 00 Elimination urinary Eliminatio Resolve 2015-12-10 Almaz frequency n d 11-12 15:20:00 [place] 15:00: [id number] 00 Elimination urinary Eliminatio Resolve 2015-12-10 Almaz incontinenc n d 11-19 15:20:00 [place] e 14:00: [id number] 00 Safety fall risk Safety Resolve 2016-03-17 Luz Maria factor d 9 15:00:00 Samuels present 15:20: [id number] 00 Nutrition knowledge/s Nutrition Resolve 2015-032016-03-17 Almaz kill d 0 15:00:00 [place] deficit: pt 13:15: [id number] 00 Elimination urinary Eliminatio Resolve 2015-032016-01-07 Luz Maria incontinenc n d 0-20 16:01:00 Arvind e 15:28: [id number] 00 Pain frequent Pain Mgmt Resolve 2015-032018-04-26 Luz Maria pain d 0-26 15:08:00 Samuels 16:01: [id number] 00 Respiratory lung sounds Respirator Resolve 2015-032016-03-17 Luz Maria deficit y d 0-26 15:00:00 Arvind 16:01: [id number] 00 Respiratory dyspnea Respirator Resolve 2016-09-08 Luz Maria present y d 03-17 21:45:00 Arvind 15:00: [id number] 00 Integument pressure Integument Resolve 2018-06-27 Luz Maria ulcer d 03-17 15:00:00 Samuels present 15:00: [id number] 00 Integument skin Integument Resolve 2016-03-17 Luz Maria integrity d 1 15:00:00 Samuels risk 15:00: [id number] 00 Nutrition changing Nutrition Resolve 2016-09-20 Luz Maria weight/appe d 03-17 15:30:00 Arvind tite 15:00: [id number] 00 Nutrition knowledge/s Nutrition Resolve 2016-08-16 Almaz kill d 1-12 15:30:00 [place] deficit: pt 16:10: [id number] 00 Medication knowledge/s Meds Resolve 2016-09-08 Almaz kill d 1-12 21:45:00 [place] deficit: pt 16:10: [id number] 00 Nutrition nutritional Nutrition Resolve 2016-08-16 Luz Maria restriction d 2- 15:30:00 Samuels s 15:30: [id number] 00 Musculoskel transfer Musculoske Unknown Luz Maria etal assistance letal 05-06 Samuels required 15:15: [id number] 00 Musculoskel requires Musculoske Unknown Luz Maria etal human letal 05-06 Samuels assist to 15:15: [id number] leave home 00 Sensory impaired Sensory Resolve 2016-10-06 Stephanie verbal d 3 15:00:00 Haile communicati 15:35: [id number] on 00 Safety fall risk Safety Resolve 2016-08-16 Stephanie factor d 3 15:30:00 Haile present 15:35: [id number] 00 Safety risk for Safety Resolve 2016-08-16 Stephanie hospitaliza d 3 15:30:00 Haile tion 15:35: [id number] 00 Integument stasis Integument Resolve 2016-09-08 Stephanie ulcer d 07-08 21:45:00 Haile present 15:30: [id number] 00 Integument skin Integument Resolve 2016-09-08 Stephanie integrity d 07-08 21:45:00 Haile risk 15:30: [id number] 00 Neuro impaired Neuro/Emot Resolve 2016-10-06 Stephanie decision-ma ion d 08-10 15:00:00 Haile jacinda 16:00: [id number] 00 Safety risk for Safety Resolve 2016-09-08 Stephanie hospitaliza d 6- 21:45:00 Haile tion 16:00: [id number] 00 Musculoskel requires Musculoske Unknown Stephanie etal human letal 08-23 Haile assist to 16:00: [id number] leave home 00 Nutrition nutritional Nutrition Resolve 2016-09-20 Stephanie restriction d 09-06 15:30:00 Haile s 15:20: [id number] 00 Neuro depressive Neuro/Emot Resolve 2018-06-20 Stephanie feelings ion d 09-06 16:00:00 Haile present 15:20: [id number] 00 Safety fall risk Safety Resolve 2016-09-08 Stephanie factor d 09-06 21:45:00 Haile present 15:20: [id number] 00 Musculoskel transfer Musculoske Unknown Stephanie etal assistance letal 09-06 Haile required 15:20: [id number] 00 Pain frequent Pain Mgmt Unknown Stephanie pain 10-01 Haile 15:20: [id number] 00 Cardio edema Cardiovasc Resolve 2017-03-03 Stephanie ular d 10-01 16:22:00 Haile 15:20: [id number] 00 Activity ADL Activity Resolve 2016-10-06 Stephanie assistance d 10-01 15:00:00 Haile required 15:20: [id number] 00 Safety risk for Safety Resolve 2016-10-06 Stephanie hospitaliza d 10-01 15:00:00 Haile tion 15:20: [id number] 00 Musculoskel requires Musculoske Unknown Stephanie etal human letal 10-01 Haile assist to 15:20: [id number] leave home 00 Medication knowledge/s Meds Resolve 2016-10-06 Almaz kill d 10-04 15:00:00 [place] deficit: pt 14:55: [id number] 00 Medication knowledge/s Meds Resolve 2017-03-03 Almaz kill d 10-14 16:22:00 [place] deficit: pt 15:30: [id number] 00 Safety can be left Safety Resolve 2017-03-03 Demetria alone for d 10-21 16:22:00 Lizett only short 15:00: [id number] periods 00 Sensory impaired Sensory Resolve 2017-03-03 Irene verbal d 10-28 16:22:00 Mara majano 16:00: [id number] on 00 Neuro impaired Neuro/Emot Resolve 2017-03-03 Irene decision-ma ion d 10-28 16:22:00 Mara monaco 16:00: [id number] 00 Musculoskel requires Musculoske Unknown Irene etal special letal 10-28 Mara noelat 16:00: [id number] ion 00 Nutrition nutritional Nutrition Resolve 2017-03-03 Bryan restriction d 11-05 16:22:00 Mason RN s 15:28: [id number] 00 Safety fall risk Safety Resolve 2017-03-03 Bryan factor d 11-05 16:22:00 Mason RN present 15:28: [id number] 00 Musculoskel transfer Musculoske Unknown Bryan etal assistance letal 11-05 Mason RN required 15:28: [id number] 00 Respiratory dyspnea Respirator Resolve 2017-03-03 Almaz present y d 11-11 16:22:00 [place] 15:30: [id number] 00 Respiratory lung sounds Respirator Resolve 2016-032017-03-03 Sindhu deficit y d 0-12 16:22:00 Uribe 16:22: [id number] 00 Safety risk for Safety Resolve 2016-032017-03-03 Sindhu hospitaliza d 0-12 16:22:00 Uribe tion 16:22: [id number] 00 Integument pressure Integument Unknown 2016-03 Angelica ulcer 0-23 Farhat present 16:00: [id number] 00 Integument stasis Integument Active 2016-03 Angelica ulcer 0-23 [place] present 16:00: [id number] 00 Integument skin Integument Resolve 2016-032017-03-03 Angelica integrity d 0-23 16:22:00 Farhat risk 16:00: [id number] 00 Elimination urinary Eliminatio Resolve 2016-032017-03-03 Angelica incontinenc n d 04-12 16:22:00 [place] e 17:25: [id number] 00 Elimination constipatio Eliminatio Resolve 2016-032017-03-03 Angelica n n d 04-12 16:22:00 Farhat 17:25: [id number] 00 Integument other wound Integument Resolve 2016-032017-03-03 Angelica present d 2- 16:22:00 [place] 16:22: [id number] 00 Elimination bowel Eliminatio Resolve 2016-032017-03-03 Angelica incontinenc n d 05-04 16:22:00 [place] e 16:22: [id number] 00 Endo/Enrique anti-coagul Endo/Enrique Resolve 2016-032018-06-20 Angelica ation d 05-09 16:00:00 Farhat therapy 16:03: [id number] 00 Elimination urinary Eliminatio Resolve 2016-032017-11-24 Angelica incontinenc n d 05-09 16:55:00 [place] e 16:03: [id number] 00 Elimination bowel Eliminatio Resolve 2016-032017-11-24 Angelica incontinenc n d 05-09 16:55:00 [place] e 16:03: [id number] 00 Respiratory dyspnea Respirator Resolve 2016-032018-03-01 Almaz present y d 05-11 15:31:00 [place] 15:50: [id number] 00 Safety fall risk Safety Resolve 2017-11-24 Sindhu factor d 03-15 16:55:00 Uribe present 16:20: [id number] 00 Safety risk for Safety Resolve 2017-11-24 Sindhu hospitaliza d 03-15 16:55:00 Uribe tion 16:20: [id number] 00 Safety can be left Safety Active Sindhu alone for 03-15 Uribe only short 16:20: [id number] periods 00 24 Hr Diet knowledge/s NT: 24Hr Resolve 2017-04-13 Bia kill Diet d 04-13 17:00:00 Cedar deficit - 17:00: [id number] pt 00 24 Hr Diet knowledge/s NT: 24Hr Resolve 2017-04-13 Bia kill Diet d 04-13 17:00:00 [place]edar deficit - 17:00: [id number] cg 00 Integument skin Integument Resolve 2017-11-24 Angelica integrity d 05-06 16:55:00 Farhat risk 16:38: [id number] 00 Neuro impaired Neuro/Emot Active Angelica decision-ma ion 05-06 Farhat monaco 16:38: [id number] 00 Safety cannot be Safety Active Angelica left alone 05-06 [place] 16:38: [id number] 00 Musculoskel requires Musculoske Resolve 2018-06-20 Angelica etal human letal d 05-06 16:00:00 Farhat assist to 16:38: [id number] leave home 00 Musculoskel requires Musculoske Resolve 2018-06-20 Angelica etal special letal d 05-06 16:00:00 [place] transportat 16:38: [id number] ion 00 Musculoskel transfer Musculoske Resolve 2018-06-20 Angelica etal assistance letal d 05-06 16:00:00 Farhat required 16:38: [id number] 00 Test/Treatm venipunctur Test/Injec Active Angelica ent e ordered t/Fabrice 06-03 Noelle [id number] Elimination constipatio Eliminatio Resolve 2017-11-24 Angelica n n d 06-03 16:55:00 Noelle 19:06: [id number] 00 Neuro confusion Neuro/Emot Active Angelica present ion 06-03 Noelle 19:06: [id number] 00 Medication potential Meds Resolve 2018-06-20 Angelica clinically d 06-03 16:00:00 Noelle significant 19:06: [id number] medication 00 issue Medication oral med Meds Resolve 2018-06-06 Angelica assistance d 06-03 15:00:00 Noelle required 19:06: [id number] 00 Medication knowledge/s Meds Resolve 2018-06-20 Angelica kill d 06-03 16:00:00 Noelle deficit: pt 19:06: [id number] 00 Elimination urinary Eliminatio Resolve 2017-11-24 Angelica urgency n d 09-29 16:55:00 Noelle 15:32: [id number] 00 Elimination urinary Eliminatio Resolve 2017-11-24 Angelica frequency n d 09-29 16:55:00 Noelle 15:32: [id number] 00 Safety risk for Safety Resolve 2018-04-20 Almaz hospitaliza d 9-20 14:59:00 [place] tion 16:31: [id number] 00 Integument skin Integument Resolve 2017-032018-04-20 Angelica integrity d 0-18 14:59:00 Noelle risk 14:11: [id number] 00 Elimination urinary Eliminatio Resolve 2017-032018-12-21 Angeilca incontinenc n d 0-18 15:15:00 Noelle e 14:11: [id number] 00 Safety fall risk Safety Resolve 2017-032018-04-20 Angelica factor d 0-18 14:59:00 Noelle present 14:11: [id number] 00 Integument pressure Integument Unknown Angelica ulcer 04-06 Noelle present 14:59: [id number] 00 Integument skin Integument Resolve 2018-06-27 Angelica integrity d 2-13 15:00:00 Noelle risk 15:08: [id number] 00 Elimination recurring Eliminatio Resolve 2018-12-21 Angelica UTI n d 2-13 15:15:00 Noelle 15:08: [id number] 00 Activity ADL Activity Active Angelica assistance 04-26 Noelle required 15:08: [id number] 00 Activity self-care Activity Resolve 2018-11-30 Angelica deficit d 2-13 14:26:00 Noelle 15:08: [id number] 00 Safety risk for Safety Resolve 2018-06-20 Angelica hospitaliza d 2-13 16:00:00 Noelle tion 15:08: [id number] 00 Safety fall risk Safety Resolve 2018-06-20 [place]a factor d 2-13 16:00:00 Noelle present 15:08: [id number] 00 Nutrition knowledge/s Nutrition Active Angelica kill 06-20 Noelle deficit: pt 16:00: [id number] 00 Nutrition nutritional Nutrition Active Angelica restriction 06-20 Noelle s 16:00: [id number] 00 Endo/Enrique anti-coagul Endo/Enrique Active Angelica ation 4-16 Noelle therapy 15:00: [id number] 00 Safety fall risk Safety Active Angelica factor 4-16 Noelle present 15:00: [id number] 00 Safety risk for Safety Active Angelica hospitaliza 4-16 Noelle tion 15:00: [id number] 00 Medication knowledge/s Meds Resolve 2018-08-03 Angelica darnell d 4-16 16:00:00 Noelle deficit: pt 15:00: [id number] 00 Musculoskel transfer Musculoske Unknown Angelica etal assistance letal 06-27 Noelle required 15:00: [id number] 00 Musculoskel requires Musculoske Unknown Angelica etal human letal -16 Noelle assist to 15:00: [id number] leave home 00 Elimination knowledge/s Eliminatio Resolve 2018-12-21 Angelica darnell n d 07-04 15:15:00 Noelle deficit: pt 15:15: [id number] 00 Test/Treatm tests Test/Injec Active Angelica ent ordered t/Fabrice 07-07 Noelle [id number] Musculoskel requires Musculoske Unknown Angelica etal special letal 07-18 Noelle transportat 15:45: [id number] ion 00 Medication knowledge/s Meds Resolve 2018-2018-08-31 Angelica darnell d 08-10 16:53:00 Marianela deficit: pt 15:30: [employer] 00 [id number] Integument skin Integument Active Angelica integrity 08-24 Noelle risk 16:02: [id number] 00 Medication knowledge/s Meds Resolve 2018-09-22 Angelica darnell d 09-07 15:00:00 Marianela deficit: pt 15:30: [employer] 00 [id number] Respiratory dyspnea Respirator Active Angelica present y 11-30 Noelle 14:26: [id number] 00 Sensory impaired Sensory Active Zoila verbal 12-09 [place] communicati 10:20: [id number] on 00 Sensory impaired Sensory Active Zoila hearing 12-09 [place] 10:20: [id number] 00 Activity self-care Activity Active 2018-03 Angelica deficit 0-10 Noelle 15:15: [id number] 00 Elimination urinary Eliminatio Active 2018-03 Angelica incontinenc n 0-17 Noelle e 15:33: [id number] 00 Allergies, Adverse Reactions, Alerts Allergy Name [...] (SIG) Name Name acetaminoph acetaminoph 2017- No Dickson 2 tab Unknown en 325 mg en 325 mg 11-28 Bobo MORENO tablet tablet amLODIPine amLODIPine 2016- No Dickson 1 tab Unknown 5 mg tablet 5 mg tablet 06-26 05- Bobo MORENO aspirin 81 aspirin 81 No Dickson 1 tab Unknown mg mg 6 Bobo MORENO tablet,ivania tablet,ivania yed release yed release atorvastati atorvastati No Dickson 1 tab Unknown n 80 mg n 80 mg 06-26 Bobo MORENO tablet tablet baclofen 10 baclofen 10 No Dickson 1 tab Unknown mg tablet mg tablet 11-28 Bobo MORENO citalopram citalopram 2016- No Dickson 1 tab Unknown 10 mg 10 mg 06-26-20 Bobo MORENO tablet tablet Colace 200 Colace 200 2016- No Dickson 1 tab Unknown mg capsule mg capsule 09-21 Bobo MORENO docusate docusate 2015- No Dickson 3 cap Unknown sodium 100 sodium 100 11-28 0824 Bobo MORENO mg capsule mg capsule gabapentin gabapentin 2012-03 No Dickson 1-2 Cap Unknown 300 mg 300 mg 2- Bobo MORENO capsule capsule guaiFENesin guaiFENesin 2016- No Dickson 10 ML Unknown AC 10 AC 10 11-28 Bobo MORENO mg-100 mg/5 mg-100 mg/5 mL oral mL oral liquid liquid HYDROcodone HYDROcodone 2016- No Dickson 1 tab Unknown 10 10 11-28 Bobo MORENO mg-acetamin mg-acetamin ophen 325 ophen 325 mg tablet mg tablet latanoprost latanoprost 2018- No Dickson 1 drop Unknown 0.005 % eye 0.005 % eye 05-23- Bobo MORENO drops drops metoprolol metoprolol No Dickson 1 tab Unknown tartrate 25 tartrate 25 03-25 Bobo MORENO mg tablet mg tablet Milk of Milk of No Dickson 30 ML Unknown Magnesia Magnesia 11-28 Bobo MORENO 400 mg/5 mL 400 mg/5 mL oral oral suspension suspension nortriptyli nortriptyli 2016- No Dickson 1 Cap Unknown ne 10 mg ne 10 mg 06-26- Bobo MORENO capsule capsule omeprazole omeprazole No Dickson 1 Cap Unknown 20 mg 20 mg 11-29 ,Bobo capsule,del capsule,del ayed ayed release release Topamax 100 Topamax 100 2018- No Dickson 1 tab Unknown mg tablet mg tablet 11-25 Bobo MORENO Topamax 25 Topamax 25 2018- No Dickson 2 tab Unknown mg tablet mg tablet 04-18 Bobo MORENO Tricor 145 Tricor 145 2016- No Dickson 1 tab Unknown mg tablet mg tablet 11-28 Bobo MORENO sulfamethox sulfamethox 2015- No Dickson one Unknown azole 400 azole 400 09-25 Bobo MORENO tablet mg-trimetho mg-trimetho prim 80 mg prim 80 mg tablet tablet tamsulosin tamsulosin 2017- No Dickson one Unknown 0.4 mg 0.4 mg 09-25 Bobo MORENO capsule capsule capsule nitrofurant nitrofurant No Dickson 1 Unknown oin oin 8-11 Bobo MORENO monohydrate monohydrate /macrocryst /macrocryst als 100 mg als 100 mg capsule capsule docusate docusate 2016- No Dickson 3 cap Unknown sodium 100 sodium 100 11-04 Bobo MORENO mg capsule mg capsule gentamicin gentamicin 2015-03- No Dickson 1 drop Unknown 0.3 % eye 0.3 % eye 03-30 ,Bobo drops drops nortriptyli nortriptyli 2018- No Dickson 2 Cap Unknown ne 10 mg ne 10 mg 04-28 Bobo MORENO (20 mg) capsule capsule hydroCHLORO hydroCHLORO No Dickson 1 Unknown thiazide 25 thiazide 25 06-24 ,Bobo tablet mg tablet mg tablet (25 mg) citalopram citalopram No Dickson 1tab Unknown 20 mg 20 mg 07-01 ,Bobo tablet tablet fenofibrate fenofibrate 2016- No Dickson 1 Unknown nanocrystal nanocrystal 07-08 Bobo MORENO tablet lized 145 lized 145 (145 mg tablet mg tablet mg) doxycycline doxycycline 2016- No Dickson 1 Unknown hyclate 100 hyclate 100 07-09- Bobo MORENO tablet mg tablet mg tablet (100 mg) Colace 100 Colace 100 2016-03- No Dickson 3 Unknown mg capsule mg capsule 09-29 Bobo MORENO capsule s fenofibrate fenofibrate 2016-03- No Dickson 1 cap Unknown 150 mg 150 mg 03-15 ,Bobo capsule capsule acetaminoph acetaminoph 2018- No Dickson 1-2 Unknown en 500 mg en 500 mg 03-15 Bobo MORENO Tablets tablet tablet clindamycin clindamycin 2017- No Dickson 150 mg Unknown HCl 150 mg HCl 150 mg 04-04- Bobo MORENO capsule capsule doxycycline doxycycline 2017- No Dickson 1 Unknown monohydrate monohydrate 05-17 Bobo MORENO 100 mg 100 mg capsule capsule senna 8.6 senna 8.6 No Dickson 1 tab Unknown mg tablet mg tablet 06-03 Bobo MORENO hold for diarrhe a Colace 100 Colace 100 No Dickson Unknown Unknown mg capsule mg capsule 09-29 Bobo MORENO tamsulosin tamsulosin No Dickson Unknown Unknown 0.4 mg 0.4 mg 09-29 ,Bobo capsule capsule doxycycline doxycycline 2018- No Dickson Unknown Unknown 100 mg 100 mg 04-07 Bobo tablet tablet mupirocin 2 mupirocin 2 2018- No Dickson Unknown Unknown % topical % topical 04-07 ,Bobo ointment ointment mupirocin 2 mupirocin 2 No Dickson Unknown Unknown % topical % topical 04-07 ,Bobo ointment ointment oxybutynin oxybutynin No Krishnam[place] Unknown Unknown chloride 5 chloride 5 04-07 rthy mg tablet mg tablet Rocio benzonatate benzonatate 2018- No Dickson Unknown Unknown 100 mg 100 mg 08-17- ,Bobo capsule capsule azithromyci azithromyci 2018- No Dickson Unknown Unknown n 250 mg n 250 mg 09-01 ,Bobo tablet tablet benzonatate benzonatate 2018- No Dickson Unknown Unknown 100 mg 100 mg 09-04 ,Boob capsule capsule topiramate topiramate No Dickson Unknown Unknown 25 mg 25 mg 09-22 Bobo tablet tablet Neosporin Neosporin No Dickson Unknown Unknown (lenard-segun-po (lenard-segun-po 09-22 MD,Bobo lym) 3.5 lym) 3.5 mg-400 mg-400 unit-5,000 unit-5,000 unit/gram unit/gram top top ointment ointment Tylenol 325 Tylenol 325 No Dickson Unknown Unknown mg capsule mg capsule 09-22 MD,Bobo Artificial Artificial No Dickson Unknown Unknown Tears Tears 09-22 MD,Bobo Xalatan Xalatan No Dickson Unknown Unknown 0.005 % eye 0.005 % eye 09-22 ,Bobo drops drops Blue-emu Blue-emu No Dickson Unknown Unknown super super 09-22 ,Bobo strenth strenth nortriptyli nortriptyli No Dickson Unknown Unknown ne 10 mg ne 10 mg 11-16 ,Bobo capsule capsule Vital Signs Vital Name Observation Time Observation Value Comments SYSTOLIC mm[Hg] 2019-03-22 18:09:47 140 mm[Hg] mm[Hg] Method: Sit DIASTOLIC mm[Hg] 2019-03-22 18:09:47 80 mm[Hg] mm[Hg] Method: Sit PULSE 2019-03-22 18:09:47 70 /min /min RESP RATE 2019-03-22 18:09:47 18 /min /min TEMP 2019-03-22 18:09:47 97.4 [degF] Procedures This patient has no known procedures. Results This patient has no known results.
--- OUTSIDE RECORDS SUMMARY | 2019-04-15 14:08 | XMS REPORT | Continuity of Care Document ---
:1965 External Reference #:[id number] Author Name Pedro Luis Hazel M.D. (transmitted by agent of provider Paul Dickinson) Address [address], [place] [address] Problems Active Problems Provider Date H/O: cardiovascular disease Chris Mojica M.D. Onset: 12/04/2012 Benign essential hypertension Chris Mojica M.D. Onset: 12/04/2012 Mixed hyperlipidemia Chris Mojica M.D. Onset: 12/04/2012 Cerebrovascular disease Guillermina Hollis M.D. Onset: 08/23/2014 Partial seizure evolving to secondary Guillermina Hollis M.D. Onset: 2014 generalized seizure Migraine without aura, not refractory Guillermina Hollis M.D. Onset: 2014 Headache Pedro Luis Hazel M.D. Onset: 03/21/2019 Aphasia as late effect of cerebrovascular Pedro Luis Hazel M.D. Onset: 11/16 accident Late effects of cerebrovascular disease Pedro Luis Hazel M.D. Onset: 2017 Social History Type Date Description Comments Sex Unknown Tobacco Use Start: Unknown End: Former Cigarette Smoker Unknown Smoking Status Reviewed: 03/21/19 Former Cigarette Smoker ETOH Use Denies alcohol use Tobacco Use Start: Unknown End: Patient is a former smoker quit 2008 Unknown Recreational Drug Use Denies Drug Use Exercise Type/Frequency In wheelchair Allergies, Adverse Reactions, Alerts Active Allergies Reaction Severity Comments Date Latex 12/04/2012 Penicillin rash 12/04/2012 Carbapenems 09/20/2013 Cephalosporins 09/20/2013 Medications Active Medications SIG Qnty Indications Ordering Date Provider Topiramate 1/2 tab by mouth 45tabs G40.209 Pedro Luis 09/21/19 100mg Tablets in in the Oumou Hazel 14 morning, 1 tab in at night Milk Of Magnesia Take 30MLS By 2365unkatherine Joseph 09/20/19 7.75% Mouth Once Daily Oumou Mojica 14 Suspension as Needed For Constipation Power Mobility Device Dx: stroke, Right 1roberto Joseph 08/02/19 arm r Paralysis r Oumou Mojica 14 AKA height: Weight: Nortriptyline HCL 2 tab by mouth 180caps Pedro Luis 06/28/19 10mg every night Oumou Hazel 14 Capsules Medication Medication ready unkatherine Joseph 03/26/19 Container/Large dispenser Dx Oumou Mojica 14 [facility] v12.59 History Personal Circulatory Disease Other Lift Chair unkatherine Joseph 12/28/19 Oumou Mojica 13 Senna-Tabs 1 tab by mouth Unknown 8.6mg Tablets daily. Hold for 00 diarrhea Fenofibrate 1 by mouth every Unknown 145mg Tablets day 00 Acetaminophen 1-2 by mouth Unknown 500mg Tablets every 4-6 hrs as 00 needed Colace 3 tab by mouth at Unknown 100mg Capsules bedtime 00 Neosporin Original apply twice a day Unknown on open areas as 00 [id number] Ointment needed Hydrochlorothiazide 1 by mouth every Unknown 25mg day 00 Tablets Guiatuss 10 ml every 4 Unknown 100mg/5ML Syrup hours as needed 00 for cough Macrodantin 1 by mouth daily Unknown 100mg Capsules 00 Artificial Tears instill one gtt Unknown Solution OU tid prn 00 Emu topically bid prn Unknown Cream 00 Omeprazole 1 by mouth every Unknown 20mg Capsules DR day 00 Latanoprost 1 gtt to OU at hs Unknown 0.005% Solution 00 Gabapentin Take One Capsule 90caps Chris Joseph 300mg Capsules By Mouth in the Oumou Mojica 00 morning 2 po in the evening.. Baclofen Take One Tablet 60tabs Bk Vasques 10mg Tablets By Mouth Twice A Oumou Merino,FACP 00 Day Citalopram Hydrobromide 1 by mouth every 90tabs Unknown 20mg day. Hold on 00 Tablets Sundays Atorvastatin Calcium 1 by mouth every Unknown 80mg day 00 Tablets Metoprolol Tartrate take one tablet 180tabs Chris E. 25mg po bid Oumou Mojica 00 Tablets Aspirin Ec 1 po qd 90tabs Chris E. 81mg Tablets DR Galina M.D. 00 Immunizations CPT Code Status Date Vaccine Lot # [id number] Given 12/20/2013 Flu Vaccine Split Virus Preservative Free For Indiv 3Yr Older [id number] Given 01/03/2013 Tdap - Tetanus/Diptheria/Acellular Pertussis [id number] Given 12/04/2012 Flu Vaccine Split Virus Preservative Free For [id number] Indiv 3Yr Older Vital Signs Date Vital Result Comment 03/21/2019 8:09am Heart Rate 59 /min BP Systolic 106 mmHg BP Diastolic 74 mmHg 08/30/2018 10:56am Heart Rate 70 /min BP Systolic 104 mmHg BP Diastolic 72 mmHg Results Description No Information Available Procedures Date Code Description Status 01/03/2014 [id number] Colonoscopy Completed Medical Devices Description No Information Available Encounters Description No Information Available Assessments Date Code Description Provider 03/21/2019 R51 Headache Pedro Luis Hazel M.D. 03/21/2019 G40.209 Localization-related (focal) (partial) Pedro Luis Hazel M.D. symptomatic epilepsy 03/21/2019 I69.398 Other sequelae of cerebral infarction Pedro Luis Hazel M.D. 03/21/2019 I69.320 Aphasia following cerebral infarction Pedro Luis Hazel M.D. Plan of Treatment Future Appointment(s):09/19/2019 8:00 am - Pedro Luis Hazel M.D. at [facility]03/21/2019 - Pedro Luis Hzael M.D.R51 HeadacheFollow up:Follow up in 6 months [place] for recent labsG40.209 Localization -related (focal) (partial) symptomatic zasadvlbP94.398 Other sequelae of cerebral arlvbwifpwS91.320 Aphasia following cerebral infarction Functional Status Description No Information Available Mental Status Description No Information Available Referrals Description No Information Available
--- OUTSIDE RECORDS SUMMARY | 2019-04-15 14:08 | XMS REPORT ---
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 Aphasia Aphasia Diagnosis Active Angelica following following 11-28 Noelle unspecified unspecified [id number] cerebrovasc cerebrovasc ular ular disease disease Chronic Chronic Diagnosis Active Angelica venous venous 11-28 Noelle hypertensio hypertensio [id number] n w/o comp n w/o comp of l low of l low extrem extrem Essential Essential Diagnosis Active Angelica (primary) (primary) 11-28 Noelle hypertensio hypertensio [id number] n n 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-28 Noelle emo def emo def [id number] following following unsp unsp cerebvasc cerebvasc disease disease 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, disorder, [id number] recurrent, recurrent, unspecified unspecified Unspecified Unspecified Diagnosis Active Angelica open-angle open-angle Noelle glaucoma, glaucoma, [id number] stage stage unspecified unspecified Mixed Mixed Diagnosis Active Angelica hyperlipide hyperlipide Noelle lilly lilly [id number] Acquired Acquired Diagnosis Active Angelica absence of absence of Noelle unspecified unspecified [id number] leg above leg above knee knee Thrombotic Thrombotic Diagnosis Active Angelica microangiop microangiop Noelle rehan rehan [id number] Medication knowledge/s Meds Resolve 2015-09-16 Jackie darnell d 2-11 18:04:00 Sinnigen deficit: pt 15:50: [id number] 00 Diagnoses knowledge/s Diagnoses Resolve 2016-03-17 Tammee kill d 2- 15:00:00 Cesar-Hor deficit: pt 15:50: an 00 Diagnoses knowledge/s Diagnoses Resolve 2016-03-17 Tammee kill d 2-11 15:00:00 Cesar-Hor deficit: cg 15:50: an 00 Pain knowledge/s Pain Mgmt Resolve 2015-09-16 Luz Maria kill d 3 18:04:00 Samuels deficit: pt 15:45: [id number] 00 Cardio hypertensio Cardiovasc Resolve 2016-09-08 Luz Maria n ular d 3 21:45:00 Samuels 15:45: [id number] 00 Integument skin Integument Resolve 2015-09-16 Luz Maria integrity d 05-14 18:04:00 Samuels risk 15:45: [id number] 00 Nutrition knowledge/s Nutrition Resolve 2015-12-10 Luz Maria kill d 3 15:20:00 Samuels deficit: pt 15:45: [id number] 00 Elimination constipatio Eliminatio Resolve 2015-09-16 Luz Maria n n d 05-14 18:04:00 Samuels 15:45: [id number] 00 Elimination urinary Eliminatio Resolve 2015-05-15 Luz Maria incontinenc n d 3 15:45:00 Arvind e 15:45: [id number] 00 Activity ADL Activity Resolve 2016-03-17 Luz Maria assistance d 3 15:00:00 Samuels required 15:45: [id number] 00 Safety fall risk Safety Resolve 2015-09-16 Luz Maria factor d 05-14 18:04:00 Samuels present 15:45: [id number] 00 Medication injectable Meds Resolve 2015-09-16 Luz Maria med d 05-14 18:04:00 Arvind assistance 15:45: [id number] required 00 Musculoskel transfer Musculoske Unknown Luz Maria etal assistance letal 05-14 Arvind required 15:45: [id number] 00 Safety knowledge/s Safety Resolve 2015-09-16 Jackie kill d 3-17 18:04:00 Sinnigen deficit: pt 17:45: [id number] 00 Respiratory lung sounds Respirator Resolve 2015-07-16 Luz Maria deficit y d 07-15 18:27:00 Arvind 18:27: [id number] 00 Elimination urinary Eliminatio Resolve 2015-08-15 Luz Maria incontinenc n d 07-15 16:23:00 Samuels e 18:27: [id number] 00 Neuro depressive Neuro/Emot Resolve 2016-03-17 Luz Maria feelings ion d 07-15 15:00:00 Samuels present 18:27: [id number] 00 Elimination urinary Eliminatio Resolve 2015-09-16 Luz Maria incontinenc n d 09-15 18:04:00 Arvind e 18:04: [id number] 00 Elimination urinary Eliminatio Resolve 2015-11-12 Luz Maria incontinenc n d 10-02 16:30:00 Arvind e 15:29: [id number] 00 Cardio edema Cardiovasc Resolve 2016-09-08 Shoshana ular d 10-15 21:45:00 Jerram [employer] 15:00: [id number] 00 Sensory impaired Sensory Resolve 2016-03-17 Shoshana verbal d 10-15 15:00:00 Jerram [employer] OPER[employer] communicati 15:00: [id number] on 00 Elimination recurring Eliminatio Resolve 2015-12-10 Shoshana UTI n d 10-15 15:20:00 Jerram [employer] OPERATOR 15:00: [id number] 00 Pain knowledge/s Pain Mgmt Resolve 2015-12-10 Luz Maria kill gretta 11-11 15:20:00 Arvind deficit: pt 16:30: [id number] 00 Cardio hypertensio Cardiovasc Unknown Luz Maria n rory 11-11 Arvind 16:30: [id number] 00 Elimination diarrhea Eliminatio Resolve 2015-12-10 Luz Maria n d 11-11 15:20:00 Arvind 16:30: [id number] 00 Medication oral med Meds Resolve 2016-09-08 Luz Maria assistance d 11-11 21:45:00 Samuels required 16:30: [id number] 00 Medication knowledge/s Meds Resolve 2016-03-17 Luz Maria kill d 8-31 15:00:00 Samuels deficit: pt 16:30: [id number] 00 Elimination urinary Eliminatio Resolve 2015-12-10 Almaz frequency n d 11-12 15:20:00 Jackson 15:00: [id number] 00 Elimination urinary Eliminatio Resolve 2015-12-10 Almaz incontinenc n d 11-19 15:20:00 Jackson e 14:00: [id number] 00 Safety fall risk Safety Resolve 2016-03-17 Luz Maria factor d 9 15:00:00 Samuels present 15:20: [id number] 00 Nutrition knowledge/s Nutrition Resolve 2015-032016-03-17 Almaz kill d 0 15:00:00 Jackson deficit: pt 13:15: [id number] 00 Elimination urinary Eliminatio Resolve 2015-032016-01-07 Luz Maria incontinenc n d 0-20 16:01:00 Arvind e 15:28: [id number] 00 Pain frequent Pain Mgmt Resolve 2015-032018-04-26 Luz Maria pain d 0-26 15:08:00 Samuels 16:01: [id number] 00 Respiratory lung sounds Respirator Resolve 2015-032016-03-17 Luz Maria deficit y d 0-26 15:00:00 Arvind 16:01: [id number] 00 Respiratory dyspnea Respirator Resolve 2016-09-08 Luz Maria present y d 03-17 21:45:00 Arvind 15:00: [id number] 00 Integument pressure Integument Resolve 2018-06-27 Luz Maria ulcer d 03-17 15:00:00 Samuels present 15:00: [id number] 00 Integument skin Integument Resolve 2016-03-17 Luz Maria integrity d 1 15:00:00 Samuels risk 15:00: [id number] 00 Nutrition changing Nutrition Resolve 2016-09-20 Luz Maria weight/appe d 03-17 15:30:00 Arvind tite 15:00: [id number] 00 Nutrition knowledge/s Nutrition Resolve 2016-08-16 Almaz kill d 1-12 15:30:00 Jackson deficit: pt 16:10: [id number] 00 Medication knowledge/s Meds Resolve 2016-09-08 Almaz kill d 1-12 21:45:00 Jackson deficit: pt 16:10: [id number] 00 Nutrition nutritional Nutrition Resolve 2016-08-16 Luz Maria restriction d 2- 15:30:00 Samuels s 15:30: [id number] 00 Musculoskel transfer Musculoske Unknown Luz Maria etal assistance letal 05-06 Samuels required 15:15: [id number] 00 Musculoskel requires Musculoske Unknown Luz Maria etal human letal 05-06 Samuels assist to 15:15: [id number] leave home 00 Sensory impaired Sensory Resolve 2016-10-06 Stephanie verbal d 3 15:00:00 Haile communicati 15:35: [id number] on 00 Safety fall risk Safety Resolve 2016-08-16 Stephanie factor d 3 15:30:00 Haile present 15:35: [id number] 00 Safety risk for Safety Resolve 2016-08-16 Stephanie hospitaliza d 3 15:30:00 Haile tion 15:35: [id number] 00 Integument stasis Integument Resolve 2016-09-08 Stephanie ulcer d 07-08 21:45:00 Haile present 15:30: [id number] 00 Integument skin Integument Resolve 2016-09-08 Stephanie integrity d 07-08 21:45:00 Haile risk 15:30: [id number] 00 Neuro impaired Neuro/Emot Resolve 2016-10-06 Stephanie decision-ma ion d 08-10 15:00:00 Haile jacinda 16:00: [id number] 00 Safety risk for Safety Resolve 2016-09-08 Stephanie hospitaliza d 6- 21:45:00 Haile tion 16:00: [id number] 00 Musculoskel requires Musculoske Unknown Stephanie etal human letal 08-23 Haile assist to 16:00: [id number] leave home 00 Nutrition nutritional Nutrition Resolve 2016-09-20 Stephanie restriction d 09-06 15:30:00 Haile s 15:20: [id number] 00 Neuro depressive Neuro/Emot Resolve 2018-06-20 Stephanie feelings ion d 09-06 16:00:00 Haile present 15:20: [id number] 00 Safety fall risk Safety Resolve 2016-09-08 Stephanie factor d 09-06 21:45:00 Haile present 15:20: [id number] 00 Musculoskel transfer Musculoske Unknown Stephanie etal assistance letal 09-06 Haile required 15:20: [id number] 00 Pain frequent Pain Mgmt Unknown Stephanie pain 10-01 Haile 15:20: [id number] 00 Cardio edema Cardiovasc Resolve 2017-03-03 Stephanie ular d 10-01 16:22:00 Haile 15:20: [id number] 00 Activity ADL Activity Resolve 2016-10-06 Stephanie assistance d 10-01 15:00:00 Haile required 15:20: [id number] 00 Safety risk for Safety Resolve 2016-10-06 Stephanie hospitaliza d 10-01 15:00:00 Haile tion 15:20: [id number] 00 Musculoskel requires Musculoske Unknown Stephanie etal human letal 10-01 Haile assist to 15:20: [id number] leave home 00 Medication knowledge/s Meds Resolve 2016-10-06 Almaz kill d 10-04 15:00:00 Jackson deficit: pt 14:55: [id number] 00 Medication knowledge/s Meds Resolve 2017-03-03 Almaz kill d 10-14 16:22:00 Jackson deficit: pt 15:30: [id number] 00 Safety can be left Safety Resolve 2017-03-03 Demetria alone for d 10-21 16:22:00 Lizett only short 15:00: [id number] periods 00 Sensory impaired Sensory Resolve 2017-03-03 Irene verbal d 10-28 16:22:00 Mara majano 16:00: [id number] on 00 Neuro impaired Neuro/Emot Resolve 2017-03-03 Irene decision-ma ion d 10-28 16:22:00 Mara monaco 16:00: [id number] 00 Musculoskel requires Musculoske Unknown Irene etal special letal 10-28 Mara noelat 16:00: [id number] ion 00 Nutrition nutritional Nutrition Resolve 2017-03-03 Bryan restriction d 11-05 16:22:00 Mason RN s 15:28: [id number] 00 Safety fall risk Safety Resolve 2017-03-03 Bryan factor d 11-05 16:22:00 Mason RN present 15:28: [id number] 00 Musculoskel transfer Musculoske Unknown Bryan etal assistance letal 11-05 Mason RN required 15:28: [id number] 00 Respiratory dyspnea Respirator Resolve 2017-03-03 Almaz present y d 11-11 16:22:00 Jackson 15:30: [id number] 00 Respiratory lung sounds Respirator Resolve 2016-032017-03-03 Sindhu deficit y d 0-12 16:22:00 Uribe 16:22: [id number] 00 Safety risk for Safety Resolve 2016-032017-03-03 Sindhu hospitaliza d 0-12 16:22:00 Uribe tion 16:22: [id number] 00 Integument pressure Integument Unknown 2016-03 Angelica ulcer 0-23 Farhat present 16:00: [id number] 00 Integument stasis Integument Active 2016-03 Angelica ulcer 0-23 [place] present 16:00: [id number] 00 Integument skin Integument Resolve 2016-032017-03-03 Angelica integrity d 0-23 16:22:00 Farhat risk 16:00: [id number] 00 Elimination urinary Eliminatio Resolve 2016-032017-03-03 Angelica incontinenc n d 04-12 16:22:00 [place] e 17:25: [id number] 00 Elimination constipatio Eliminatio Resolve 2016-032017-03-03 Angelica n n d 04-12 16:22:00 Farhat 17:25: [id number] 00 Integument other wound Integument Resolve 2016-032017-03-03 Angelica present d 2- 16:22:00 [place] 16:22: [id number] 00 Elimination bowel Eliminatio Resolve 2016-032017-03-03 Angelica incontinenc n d 05-04 16:22:00 [place] e 16:22: [id number] 00 Endo/Enrique anti-coagul Endo/Enrique Resolve 2016-032018-06-20 Angelica ation d 05-09 16:00:00 Farhat therapy 16:03: [id number] 00 Elimination urinary Eliminatio Resolve 2016-032017-11-24 Angelica incontinenc n d 05-09 16:55:00 [place] e 16:03: [id number] 00 Elimination bowel Eliminatio Resolve 2016-032017-11-24 Angelica incontinenc n d 05-09 16:55:00 [place] e 16:03: [id number] 00 Respiratory dyspnea Respirator Resolve 2016-032018-03-01 Almaz present y d 05-11 15:31:00 Jackson 15:50: [id number] 00 Safety fall risk Safety Resolve 2017-11-24 Sindhu factor d 03-15 16:55:00 Uribe present 16:20: [id number] 00 Safety risk for Safety Resolve 2017-11-24 Sindhu hospitaliza d 03-15 16:55:00 Uribe tion 16:20: [id number] 00 Safety can be left Safety Active Sindhu alone for 03-15 Uribe only short 16:20: [id number] periods 00 24 Hr Diet knowledge/s NT: 24Hr Resolve 2017-04-13 Bia kill Diet d 04-13 17:00:00 [place] deficit - 17:00: [id number] pt 00 24 Hr Diet knowledge/s NT: 24Hr Resolve 2017-04-13 Bia kill Diet d 04-13 17:00:00 [place] deficit - 17:00: [id number] cg 00 Integument skin Integument Resolve 2017-11-24 Angelica integrity d 05-06 16:55:00 Farhat risk 16:38: [id number] 00 Neuro impaired Neuro/Emot Active Angelica decision-ma ion 05-06 Farhat monaco 16:38: [id number] 00 Safety cannot be Safety Active Angelica left alone 05-06 [place] 16:38: [id number] 00 Musculoskel requires Musculoske Resolve 2018-06-20 Angelica etal human letal d 05-06 16:00:00 Farhat assist to 16:38: [id number] leave home 00 Musculoskel requires Musculoske Resolve 2018-06-20 Angelica etal special letal d 05-06 16:00:00 [place] transportat 16:38: [id number] ion 00 Musculoskel transfer Musculoske Resolve 2018-06-20 Angelica etal assistance letal d 05-06 16:00:00 Farhat required 16:38: [id number] 00 Test/Treatm venipunctur Test/Injec Active Angelica ent e ordered t/Fabrice 06-03 Noelle [id number] Elimination constipatio Eliminatio Resolve 2017-11-24 Angelica n n d 06-03 16:55:00 Noelle 19:06: [id number] 00 Neuro confusion Neuro/Emot Active Angelica present ion 06-03 Noelle 19:06: [id number] 00 Medication potential Meds Resolve 2018-06-20 Angelica clinically d 06-03 16:00:00 Noelle significant 19:06: [id number] medication 00 issue Medication oral med Meds Resolve 2018-06-06 Angelica assistance d 06-03 15:00:00 Noelle required 19:06: [id number] 00 Medication knowledge/s Meds Resolve 2018-06-20 Angelica kill d 06-03 16:00:00 Noelle deficit: pt 19:06: [id number] 00 Elimination urinary Eliminatio Resolve 2017-11-24 Angelica urgency n d 09-29 16:55:00 Noelle 15:32: [id number] 00 Elimination urinary Eliminatio Resolve 2017-11-24 Angelica frequency n d 09-29 16:55:00 Noelle 15:32: [id number] 00 Safety risk for Safety Resolve 2018-04-20 Almaz hospitaliza d 9-20 14:59:00 Jackson tion 16:31: [id number] 00 Integument skin Integument Resolve 2017-032018-04-20 Angelica integrity d 0-18 14:59:00 Noelle risk 14:11: [id number] 00 Elimination urinary Eliminatio Resolve 2017-032018-12-21 Angelica incontinenc n d 0-18 15:15:00 Noelle e 14:11: [id number] 00 Safety fall risk Safety Resolve 2017-032018-04-20 Angelica factor d 0-18 14:59:00 Noelle present 14:11: [id number] 00 Integument pressure Integument Unknown Angelica ulcer 04-06 Noelle present 14:59: [id number] 00 Integument skin Integument Resolve 2018-06-27 Angelica integrity d 2-13 15:00:00 Noelle risk 15:08: [id number] 00 Elimination recurring Eliminatio Resolve 2018-12-21 Angelica UTI n d 2-13 15:15:00 Noelle 15:08: [id number] 00 Activity ADL Activity Active Angelica assistance 04-26 Noelle required 15:08: [id number] 00 Activity self-care Activity Resolve 2018-11-30 Angelica deficit d 2-13 14:26:00 Noelle 15:08: [id number] 00 Safety risk for Safety Resolve 2018-06-20 Angelica hospitaliza d 2-13 16:00:00 Noelle tion 15:08: [id number] 00 Safety fall risk Safety Resolve 2018-06-20 Angelica factor d 2-13 16:00:00 Noelle present 15:08: [id number] 00 Nutrition knowledge/s Nutrition Active Angelica kill 06-20 Noelle deficit: pt 16:00: [id number] 00 Nutrition nutritional Nutrition Active Angelica restriction 06-20 Noelle s 16:00: [id number] 00 Endo/Enrique anti-coagul Endo/Enrique Active Angelica ation 4-16 Noelle therapy 15:00: [id number] 00 Safety fall risk Safety Active Angelica factor 4-16 Noelle present 15:00: [id number] 00 Safety risk for Safety Active Angelica hospitaliza 4-16 Noelle tion 15:00: [id number] 00 Medication knowledge/s Meds Resolve 2018-08-03 Angelica darnell d 4-16 16:00:00 Noelle deficit: pt 15:00: [id number] 00 Musculoskel transfer Musculoske Unknown Angelica etal assistance letal 06-27 Noelle required 15:00: [id number] 00 Musculoskel requires Musculoske Unknown Angelica etal human letal -16 Noelle assist to 15:00: [id number] leave home 00 Elimination knowledge/s Eliminatio Resolve 2018-12-21 Angelica darnell n d 07-04 15:15:00 Noelle deficit: pt 15:15: [id number] 00 Test/Treatm tests Test/Injec Active Angelica ent ordered t/Fabrcie 07-07 Noelle [id number] Musculoskel requires Musculoske Unknown Angelica etal special letal 07-18 Noelle transportat 15:45: [id number] ion 00 Medication knowledge/s Meds Resolve 2018-2018-08-31 Angelica darnell d 08-10 16:53:00 Marianela deficit: pt 15:30: [employer] 00 [id number] Integument skin Integument Active Angelica integrity 08-24 Noelle risk 16:02: [id number] 00 Medication knowledge/s Meds Resolve 2018-09-22 Angelica darnell d 09-07 15:00:00 Marianela deficit: pt 15:30: [employer] 00 [id number] Respiratory dyspnea Respirator Active Angelica present y 11-30 Noelle 14:26: [id number] 00 Sensory impaired Sensory Active Zoila verbal 12-09 [place] communicati 10:20: [id number] on 00 Sensory impaired Sensory Active Zoila hearing 12-09 [place] 10:20: [id number] 00 Activity self-care Activity Active 2018-03 Angelica deficit 0-10 Noelle 15:15: [id number] 00 Elimination urinary Eliminatio Active 2018-03 Angelica incontinenc n 0-17 Noelle e 15:33: [id number] 00 Allergies, Adverse Reactions, Alerts Allergy Name [...] (SIG) Name Name acetaminoph acetaminoph 2017- No Maury 2 tab Unknown en 325 mg en 325 mg 11-28 Bobo MORENO tablet tablet amLODIPine amLODIPine 2016- No Maury 1 tab Unknown 5 mg tablet 5 mg tablet 06-26 05- Bobo MORENO aspirin 81 aspirin 81 No Maury 1 tab Unknown mg mg 6 Bobo MORENO tablet,ivania tablet,ivania yed release yed release atorvastati atorvastati No Maury 1 tab Unknown n 80 mg n 80 mg 06-26 Bobo MORENO tablet tablet baclofen 10 baclofen 10 No Maury 1 tab Unknown mg tablet mg tablet 11-28 Bobo MORENO citalopram citalopram 2016- No Maury 1 tab Unknown 10 mg 10 mg 06-26-20 Bobo MORENO tablet tablet Colace 200 Colace 200 2016- No Maury 1 tab Unknown mg capsule mg capsule 09-21 Bobo MORENO docusate docusate 2015- No Maury 3 cap Unknown sodium 100 sodium 100 11-28 0824 Bobo MORENO mg capsule mg capsule gabapentin gabapentin 2012-03 No Maury 1-2 Cap Unknown 300 mg 300 mg 2- Bobo MORENO capsule capsule guaiFENesin guaiFENesin 2016- No Maury 10 ML Unknown AC 10 AC 10 11-28 Bobo MORENO mg-100 mg/5 mg-100 mg/5 mL oral mL oral liquid liquid HYDROcodone HYDROcodone 2016- No Maury 1 tab Unknown 10 10 11-28 Bobo MORENO mg-acetamin mg-acetamin ophen 325 ophen 325 mg tablet mg tablet latanoprost latanoprost 2018- No Maury 1 drop Unknown 0.005 % eye 0.005 % eye 05-23- Bobo MORENO drops drops metoprolol metoprolol No Maury 1 tab Unknown tartrate 25 tartrate 25 03-25 Bobo MORENO mg tablet mg tablet Milk of Milk of No Maury 30 ML Unknown Magnesia Magnesia 11-28 Bobo MORENO 400 mg/5 mL 400 mg/5 mL oral oral suspension suspension nortriptyli nortriptyli 2016- No Maury 1 Cap Unknown ne 10 mg ne 10 mg 06-26- Bobo MORENO capsule capsule omeprazole omeprazole No Maury 1 Cap Unknown 20 mg 20 mg 11-29 ,Bobo capsule,del capsule,del ayed ayed release release Topamax 100 Topamax 100 2018- No Maury 1 tab Unknown mg tablet mg tablet 11-25 Bobo MORENO Topamax 25 Topamax 25 2018- No Maury 2 tab Unknown mg tablet mg tablet 04-18 Bobo MORENO Tricor 145 Tricor 145 2016- No Maury 1 tab Unknown mg tablet mg tablet 11-28 Bobo MORENO sulfamethox sulfamethox 2015- No Maury one Unknown azole 400 azole 400 09-25 Bobo MORENO tablet mg-trimetho mg-trimetho prim 80 mg prim 80 mg tablet tablet tamsulosin tamsulosin 2017- No Maury one Unknown 0.4 mg 0.4 mg 09-25 Bobo MORENO capsule capsule capsule nitrofurant nitrofurant No Maury 1 Unknown oin oin 8-11 Bobo MORENO monohydrate monohydrate /macrocryst /macrocryst als 100 mg als 100 mg capsule capsule docusate docusate 2016- No Maury 3 cap Unknown sodium 100 sodium 100 11-04 Bobo MORENO mg capsule mg capsule gentamicin gentamicin 2015-03- No Maury 1 drop Unknown 0.3 % eye 0.3 % eye 03-30 ,Bobo drops drops nortriptyli nortriptyli 2018- No Maury 2 Cap Unknown ne 10 mg ne 10 mg 04-28 Bobo MORENO (20 mg) capsule capsule hydroCHLORO hydroCHLORO No Maury 1 Unknown thiazide 25 thiazide 25 06-24 ,Bobo tablet mg tablet mg tablet (25 mg) citalopram citalopram No Maury 1tab Unknown 20 mg 20 mg 07-01 ,Bobo tablet tablet fenofibrate fenofibrate 2016- No Maury 1 Unknown nanocrystal nanocrystal 07-08 Bobo MORENO tablet lized 145 lized 145 (145 mg tablet mg tablet mg) doxycycline doxycycline 2016- No Maury 1 Unknown hyclate 100 hyclate 100 07-09- Bobo MORENO tablet mg tablet mg tablet (100 mg) Colace 100 Colace 100 2016-03- No Maury 3 Unknown mg capsule mg capsule 09-29 Bobo MORENO capsule s fenofibrate fenofibrate 2016-03- No Maury 1 cap Unknown 150 mg 150 mg 03-15 ,Bobo capsule capsule acetaminoph acetaminoph 2018- No Maury 1-2 Unknown en 500 mg en 500 mg 03-15 Bobo MORENO Tablets tablet tablet clindamycin clindamycin 2017- No Maury 150 mg Unknown HCl 150 mg HCl 150 mg 04-04- Bobo MORENO capsule capsule doxycycline doxycycline 2017- No Maury 1 Unknown monohydrate monohydrate 05-17 Bobo MORENO 100 mg 100 mg capsule capsule senna 8.6 senna 8.6 No Maury 1 tab Unknown mg tablet mg tablet 06-03 Bobo MORENO hold for diarrhe a Colace 100 Colace 100 No Maury Unknown Unknown mg capsule mg capsule 09-29 Bobo MORENO tamsulosin tamsulosin No Maury Unknown Unknown 0.4 mg 0.4 mg 09-29 ,Bobo capsule capsule doxycycline doxycycline 2018- No Maury Unknown Unknown 100 mg 100 mg 04-07 Bobo tablet tablet mupirocin 2 mupirocin 2 2018- No Maury Unknown Unknown % topical % topical 04-07 ,Bobo ointment ointment mupirocin 2 mupirocin 2 No Maury Unknown Unknown % topical % topical 04-07 ,Bobo ointment ointment oxybutynin oxybutynin No Krish[place] Unknown Unknown chloride 5 chloride 5 04-07 rthy mg tablet mg tablet Rocio benzonatate benzonatate 2018- No Maury Unknown Unknown 100 mg 100 mg 08-17- ,Bobo capsule capsule azithromyci azithromyci 2018- No Maury Unknown Unknown n 250 mg n 250 mg 09-01 ,Bobo tablet tablet benzonatate benzonatate 2018- No Maury Unknown Unknown 100 mg 100 mg 09-04 ,Bobo capsule capsule topiramate topiramate No Maury Unknown Unknown 25 mg 25 mg 09-22 Bobo tablet tablet Neosporin Neosporin No Maury Unknown Unknown (lenard-segun-po (lenard-segun-po 09-22 MD,Bobo lym) 3.5 lym) 3.5 mg-400 mg-400 unit-5,000 unit-5,000 unit/gram unit/gram top top ointment ointment Tylenol 325 Tylenol 325 No Maury Unknown Unknown mg capsule mg capsule 09-22 MD,Bobo Artificial Artificial No Maury Unknown Unknown Tears Tears 09-22 MD,Bobo Xalatan Xalatan No Maury Unknown Unknown 0.005 % eye 0.005 % eye 09-22 ,Bobo drops drops Blue-emu Blue-emu No Maury Unknown Unknown super super 09-22 ,Bobo strenth strenth nortriptyli nortriptyli No Maury Unknown Unknown ne 10 mg ne 10 [...]
--- OUTSIDE RECORDS SUMMARY | 2019-04-15 14:09 | XMS REPORT ---
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 Aphasia Aphasia Diagnosis Active Angelica following following 11-28 Noelle unspecified unspecified [id number] cerebrovasc cerebrovasc ular ular disease disease Chronic Chronic Diagnosis Active Angelica venous venous 11-28 Noelle hypertensio hypertensio [id number] n w/o comp n w/o comp of l low of l low extrem extrem Essential Essential Diagnosis Active Angelica (primary) (primary) 11-28 Noelle hypertensio hypertensio [id number] n n 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-28 Noelle emo def emo def [id number] following following unsp unsp cerebvasc cerebvasc disease disease 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, disorder, 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 recurrent, recurrent, unspecified unspecified Unspecified Unspecified Diagnosis Active Angelica open-angle open-angle Noelle glaucoma, glaucoma, [id number] stage stage unspecified unspecified Mixed Mixed Diagnosis Active Angelica hyperlipide hyperlipide Noelle lilly lilly [id number] Acquired Acquired Diagnosis Active Angelica absence of absence of Noelle unspecified unspecified [id number] leg above leg above knee knee Thrombotic Thrombotic Diagnosis Active Angelica microangiop microangiop Noelle rehan rehan [id number] Medication knowledge/s Meds Resolve 2015-09-16 Jackie darnell d 2-11 18:04:00 Sinnigen deficit: pt 15:50: [id number] 00 Diagnoses knowledge/s Diagnoses Resolve 2016-03-17 Tammee kill d 2- 15:00:00 Cesar-Hor deficit: pt 15:50: an 00 Diagnoses knowledge/s Diagnoses Resolve 2016-03-17 Tammee kill d 2-11 15:00:00 Cesar-Hor deficit: cg 15:50: an 00 Pain knowledge/s Pain Mgmt Resolve 2015-09-16 Luz Maria kill d 3 18:04:00 Samuels deficit: pt 15:45: [id number] 00 Cardio hypertensio Cardiovasc Resolve 2016-09-08 Luz Maria n ular d 3 21:45:00 Samuels 15:45: [id number] 00 Integument skin Integument Resolve 2015-09-16 Luz Maria integrity d 05-14 18:04:00 Samuels risk 15:45: [id number] 00 Nutrition knowledge/s Nutrition Resolve 2015-12-10 Luz Maria kill d 3 15:20:00 Samuels deficit: pt 15:45: [id number] 00 Elimination constipatio Eliminatio Resolve 2015-09-16 Luz Maria n n d 05-14 18:04:00 Samuels 15:45: [id number] 00 Elimination urinary Eliminatio Resolve 2015-05-15 Luz Maria incontinenc n d 3 15:45:00 Arvind e 15:45: [id number] 00 Activity ADL Activity Resolve 2016-03-17 Luz Maria assistance d 3 15:00:00 Samuels required 15:45: [id number] 00 Safety fall risk Safety Resolve 2015-09-16 Luz Maria factor d 05-14 18:04:00 Samuels present 15:45: [id number] 00 Medication injectable Meds Resolve 2015-09-16 Luz Maria med d 05-14 18:04:00 Arvind assistance 15:45: [id number] required 00 Musculoskel transfer Musculoske Unknown Luz Maria etal assistance letal 05-14 Arvind required 15:45: [id number] 00 Safety knowledge/s Safety Resolve 2015-09-16 Jackie kill d 3-17 18:04:00 [place] deficit: pt 17:45: [id number] 00 Respiratory lung sounds Respirator Resolve 2015-07-16 Luz Maria deficit y d 07-15 18:27:00 Arvind 18:27: [id number] 00 Elimination urinary Eliminatio Resolve 2015-08-15 Luz Maria incontinenc n d 07-15 16:23:00 Samuels e 18:27: [id number] 00 Neuro depressive Neuro/Emot Resolve 2016-03-17 Luz Maria feelings ion d 07-15 15:00:00 Samuels present 18:27: [id number] 00 Elimination urinary Eliminatio Resolve 2015-09-16 Luz Maria incontinenc n d 09-15 18:04:00 Arvind e 18:04: [id number] 00 Elimination urinary Eliminatio Resolve 2015-11-12 Luz Maria incontinenc n d 10-02 16:30:00 Arvind e 15:29: [id number] 00 Cardio edema Cardiovasc Resolve 2016-09-08 Shoshana ular d 10-15 21:45:00 Jerram [employer] 15:00: [id number] 00 Sensory impaired Sensory Resolve 2016-03-17 Shoshana verbal d 10-15 15:00:00 Jerram [employer] communicati 15:00: [id number] on 00 Elimination recurring Eliminatio Resolve 2015-12-10 Shoshana UTI n d 10-15 15:20:00 Jerram [employer] 15:00: [id number] 00 Pain knowledge/s Pain Mgmt Resolve 2015-12-10 Luz Maria kill gretta 11-11 15:20:00 Arvind deficit: pt 16:30: [id number] 00 Cardio hypertensio Cardiovasc Unknown Luz Maria n rory 11-11 Arvind 16:30: [id number] 00 Elimination diarrhea Eliminatio Resolve 2015-12-10 Luz Maria n d 11-11 15:20:00 Arvind 16:30: [id number] 00 Medication oral med Meds Resolve 2016-09-08 Luz Maria assistance d 11-11 21:45:00 Samuels required 16:30: [id number] 00 Medication knowledge/s Meds Resolve 2016-03-17 Luz Maria kill d 8-31 15:00:00 Samuels deficit: pt 16:30: [id number] 00 Elimination urinary Eliminatio Resolve 2015-12-10 Almaz frequency n d 11-12 15:20:00 [place] 15:00: [id number] 00 Elimination urinary Eliminatio Resolve 2015-12-10 Almaz incontinenc n d 11-19 15:20:00 [place] e 14:00: [id number] 00 Safety fall risk Safety Resolve 2016-03-17 Luz Maria factor d 9 15:00:00 Samuels present 15:20: [id number] 00 Nutrition knowledge/s Nutrition Resolve 2015-032016-03-17 Almaz kill d 0 15:00:00 [place] deficit: pt 13:15: [id number] 00 Elimination urinary Eliminatio Resolve 2015-032016-01-07 Luz Maria incontinenc n d 0-20 16:01:00 Arvind e 15:28: [id number] 00 Pain frequent Pain Mgmt Resolve 2015-032018-04-26 Luz Maria pain d 0-26 15:08:00 Samuels 16:01: [id number] 00 Respiratory lung sounds Respirator Resolve 2015-032016-03-17 Luz Maria deficit y d 0-26 15:00:00 Arvind 16:01: [id number] 00 Respiratory dyspnea Respirator Resolve 2016-09-08 Luz Maria present y d 03-17 21:45:00 Arvind 15:00: [id number] 00 Integument pressure Integument Resolve 2018-06-27 Luz Maria ulcer d 03-17 15:00:00 Samuels present 15:00: [id number] 00 Integument skin Integument Resolve 2016-03-17 Luz Maria integrity d 1 15:00:00 Samuels risk 15:00: [id number] 00 Nutrition changing Nutrition Resolve 2016-09-20 Luz Maria weight/appe d 03-17 15:30:00 Arvind tite 15:00: [id number] 00 Nutrition knowledge/s Nutrition Resolve 2016-08-16 Almaz kill d 1-12 15:30:00 [place] deficit: pt 16:10: [id number] 00 Medication knowledge/s Meds Resolve 2016-09-08 Almaz kill d 1-12 21:45:00 [place] deficit: pt 16:10: [id number] 00 Nutrition nutritional Nutrition Resolve 2016-08-16 Luz Maria restriction d 2- 15:30:00 Samuels s 15:30: [id number] 00 Musculoskel transfer Musculoske Unknown Luz Maria etal assistance letal 05-06 Samuels required 15:15: [id number] 00 Musculoskel requires Musculoske Unknown Luz Maria etal human letal 05-06 Samuels assist to 15:15: [id number] leave home 00 Sensory impaired Sensory Resolve 2016-10-06 Stephanie verbal d 3 15:00:00 Haile communicati 15:35: [id number] on 00 Safety fall risk Safety Resolve 2016-08-16 Stephanie factor d 3 15:30:00 Haile present 15:35: [id number] 00 Safety risk for Safety Resolve 2016-08-16 Stephanie hospitaliza d 3 15:30:00 Haile tion 15:35: [id number] 00 Integument stasis Integument Resolve 2016-09-08 Stephanie ulcer d 07-08 21:45:00 Haile present 15:30: [id number] 00 Integument skin Integument Resolve 2016-09-08 Stephanie integrity d 07-08 21:45:00 Haile risk 15:30: [id number] 00 Neuro impaired Neuro/Emot Resolve 2016-10-06 Stephanie decision-ma ion d 08-10 15:00:00 Haile jacinda 16:00: [id number] 00 Safety risk for Safety Resolve 2016-09-08 Stephanie hospitaliza d 6- 21:45:00 Haile tion 16:00: [id number] 00 Musculoskel requires Musculoske Unknown Stephanie etal human letal 08-23 Haile assist to 16:00: [id number] leave home 00 Nutrition nutritional Nutrition Resolve 2016-09-20 Stephanie restriction d 09-06 15:30:00 Haile s 15:20: [id number] 00 Neuro depressive Neuro/Emot Resolve 2018-06-20 Stephanie feelings ion d 09-06 16:00:00 Haile present 15:20: [id number] 00 Safety fall risk Safety Resolve 2016-09-08 Stephanie factor d 09-06 21:45:00 Haile present 15:20: [id number] 00 Musculoskel transfer Musculoske Unknown Stephanie etal assistance letal 09-06 Haile required 15:20: [id number] 00 Pain frequent Pain Mgmt Unknown Stephanie pain 10-01 Haile 15:20: [id number] 00 Cardio edema Cardiovasc Resolve 2017-03-03 Stephanie ular d 10-01 16:22:00 Haile 15:20: [id number] 00 Activity ADL Activity Resolve 2016-10-06 Stephanie assistance d 10-01 15:00:00 Haile required 15:20: [id number] 00 Safety risk for Safety Resolve 2016-10-06 Stephanie hospitaliza d 10-01 15:00:00 Haile tion 15:20: [id number] 00 Musculoskel requires Musculoske Unknown Stephanie etal human letal 10-01 Haile assist to 15:20: [id number] leave home 00 Medication knowledge/s Meds Resolve 2016-10-06 Almaz kill d 10-04 15:00:00 [place] deficit: pt 14:55: [id number] 00 Medication knowledge/s Meds Resolve 2017-03-03 Almaz kill d 10-14 16:22:00 [place] deficit: pt 15:30: [id number] 00 Safety can be left Safety Resolve 2017-03-03 Demetria alone for d 10-21 16:22:00 Lizett only short 15:00: [id number] periods 00 Sensory impaired Sensory Resolve 2017-03-03 Irene verbal d 10-28 16:22:00 Mara majano 16:00: [id number] on 00 Neuro impaired Neuro/Emot Resolve 2017-03-03 Irene decision-ma ion d 10-28 16:22:00 Mara monaco 16:00: [id number] 00 Musculoskel requires Musculoske Unknown Irene etal special letal 10-28 Mara noelat 16:00: [id number] ion 00 Nutrition nutritional Nutrition Resolve 2017-03-03 Bryan restriction d 11-05 16:22:00 Mason RN s 15:28: [id number] 00 Safety fall risk Safety Resolve 2017-03-03 Bryan factor d 11-05 16:22:00 Mason RN present 15:28: [id number] 00 Musculoskel transfer Musculoske Unknown Bryan etal assistance letal 11-05 Mason RN required 15:28: [id number] 00 Respiratory dyspnea Respirator Resolve 2017-03-03 Almaz present y d 11-11 16:22:00 [place] 15:30: [id number] 00 Respiratory lung sounds Respirator Resolve 2016-032017-03-03 Sindhu deficit y d 0-12 16:22:00 Uribe 16:22: [id number] 00 Safety risk for Safety Resolve 2016-032017-03-03 Sindhu hospitaliza d 0-12 16:22:00 Uribe tion 16:22: [id number] 00 Integument pressure Integument Unknown 2016-03 Angelica ulcer 0-23 Farhat present 16:00: [id number] 00 Integument stasis Integument Active 2016-03 Angelica ulcer 0-23 Farhat present 16:00: [id number] 00 Integument skin Integument Resolve 2016-032017-03-03 Angelica integrity d 0-23 16:22:00 [place] risk 16:00: [id number] 00 Elimination urinary Eliminatio Resolve 2016-032017-03-03 Angelica incontinenc n d 04-12 16:22:00 Farhat e 17:25: [id number] 00 Elimination constipatio Eliminatio Resolve 2016-032017-03-03 Angelica n n d 04-12 16:22:00 [place] 17:25: [id number] 00 Integument other wound Integument Resolve 2016-032017-03-03 Angelica present d 2- 16:22:00 Farhat 16:22: [id number] 00 Elimination bowel Eliminatio Resolve 2016-032017-03-03 Angelica incontinenc n d 05-04 16:22:00 [place] e 16:22: [id number] 00 Endo/Enrique anti-coagul Endo/Enrique Resolve 2016-032018-06-20 Angelica ation d 05-09 16:00:00 Farhat therapy 16:03: [id number] 00 Elimination urinary Eliminatio Resolve 2016-032017-11-24 Angelica incontinenc n d 05-09 16:55:00 [place] e 16:03: [id number] 00 Elimination bowel Eliminatio Resolve 2016-032017-11-24 Angelica incontinenc n d 05-09 16:55:00 [place] e 16:03: [id number] 00 Respiratory dyspnea Respirator Resolve 2016-032018-03-01 Almaz present y d 05-11 15:31:00 [place] 15:50: [id number] 00 Safety fall risk Safety Resolve 2017-11-24 Sindhu factor d 03-15 16:55:00 Uribe present 16:20: [id number] 00 Safety risk for Safety Resolve 2017-11-24 Sindhu hospitaliza d 03-15 16:55:00 Uribe tion 16:20: [id number] 00 Safety can be left Safety Active Sindhu alone for 03-15 Uribe only short 16:20: [id number] periods 00 24 Hr Diet knowledge/s NT: 24Hr Resolve 2017-04-13 Bia kill Diet d 04-13 17:00:00 [place] deficit - 17:00: [id number] pt 00 24 Hr Diet knowledge/s NT: 24Hr Resolve 2017-04-13 Bia kill Diet d 04-13 17:00:00 [place] deficit - 17:00: [id number] cg 00 Integument skin Integument Resolve 2017-11-24 Angelica integrity d 05-06 16:55:00 [place] risk 16:38: [id number] 00 Neuro impaired Neuro/Emot Active Angelica decision-ma ion 05-06 Farhat monaco 16:38: [id number] 00 Safety cannot be Safety Active Angelica left alone 05-06 [place] 16:38: [id number] 00 Musculoskel requires Musculoske Resolve 2018-06-20 Angelica etal human letal d 05-06 16:00:00 Farhat assist to 16:38: [id number] leave home 00 Musculoskel requires Musculoske Resolve 2018-06-20 Angelica etal special letal d 05-06 16:00:00 [place] transportat 16:38: [id number] ion 00 Musculoskel transfer Musculoske Resolve 2018-06-20 Angelica etal assistance letal d 05-06 16:00:00 [place] required 16:38: [id number] 00 Test/Treatm venipunctur Test/Injec Active Angelica ent e ordered t/Fabrice 06-03 Noelle [id number] Elimination constipatio Eliminatio Resolve 2017-11-24 Angelica n n d 06-03 16:55:00 Noelle 19:06: [id number] 00 Neuro confusion Neuro/Emot Active Angelica present ion 06-03 Noelle 19:06: [id number] 00 Medication potential Meds Resolve 2018-06-20 Angelica clinically d 06-03 16:00:00 Noelle significant 19:06: [id number] medication 00 issue Medication oral med Meds Resolve 2018-06-06 Angelica assistance d 06-03 15:00:00 Noelle required 19:06: [id number] 00 Medication knowledge/s Meds Resolve 2018-06-20 Angelica kill d 06-03 16:00:00 Noelle deficit: pt 19:06: [id number] 00 Elimination urinary Eliminatio Resolve 2017-11-24 Angelica urgency n d 09-29 16:55:00 Noelle 15:32: [id number] 00 Elimination urinary Eliminatio Resolve 2017-11-24 Angelica frequency n d 09-29 16:55:00 Noelle 15:32: [id number] 00 Safety risk for Safety Resolve 2018-04-20 Almaz hospitaliza d 9-20 14:59:00 [place] tion 16:31: [id number] 00 Integument skin Integument Resolve 2017-032018-04-20 Angelica integrity d 0-18 14:59:00 Noelle risk 14:11: [id number] 00 Elimination urinary Eliminatio Resolve 2017-032018-12-21 Angelica incontinenc n d 0-18 15:15:00 Noelle e 14:11: [id number] 00 Safety fall risk Safety Resolve 2017-032018-04-20 Angelica factor d 0-18 14:59:00 Noelle present 14:11: [id number] 00 Integument pressure Integument Unknown Angelica ulcer 04-06 Noelle present 14:59: [id number] 00 Integument skin Integument Resolve 2018-06-27 Angelica integrity d 2-13 15:00:00 Noelle risk 15:08: [id number] 00 Elimination recurring Eliminatio Resolve 2018-12-21 Angelica UTI n d 2-13 15:15:00 Noelle 15:08: [id number] 00 Activity ADL Activity Active Angelica assistance 04-26 Noelle required 15:08: [id number] 00 Activity self-care Activity Resolve 2018-11-30 Angelica deficit d 2-13 14:26:00 Noelle 15:08: [id number] 00 Safety risk for Safety Resolve 2018-06-20 Angelica hospitaliza d 2-13 16:00:00 Noelle tion 15:08: [id number] 00 Safety fall risk Safety Resolve 2018-06-20 Angelica factor d 2-13 16:00:00 Noelle present 15:08: [id number] 00 Nutrition knowledge/s Nutrition Active Angelica kill 06-20 Noelle deficit: pt 16:00: [id number] 00 Nutrition nutritional Nutrition Active Angelica restriction 06-20 Noelle s 16:00: [id number] 00 Endo/Enrique anti-coagul Endo/Enrique Active Angelica ation 4-16 Noelle therapy 15:00: [id number] 00 Safety fall risk Safety Active Angelica factor 4-16 Noelle present 15:00: [id number] 00 Safety risk for Safety Active Angelica hospitaliza 4-16 Noelle tion 15:00: [id number] 00 Medication knowledge/s Meds Resolve 2018-08-03 Angelica darnell d 4-16 16:00:00 Noelle deficit: pt 15:00: [id number] 00 Musculoskel transfer Musculoske Unknown Angelica etal assistance letal 06-27 Noelle required 15:00: [id number] 00 Musculoskel requires Musculoske Unknown Angelica etal human letal -16 Noelle assist to 15:00: [id number] leave home 00 Elimination knowledge/s Eliminatio Resolve 2018-12-21 Angelica darnell n d 07-04 15:15:00 Noelle deficit: pt 15:15: [id number] 00 Test/Treatm tests Test/Injec Active Angelica ent ordered t/Fabrice 07-07 Noelle [id number] Musculoskel requires Musculoske Unknown Angelica etal special letal 07-18 Noelle transportat 15:45: [id number] ion 00 Medication knowledge/s Meds Resolve 2018-2018-08-31 Angelica darnell d 08-10 16:53:00 Marianela deficit: pt 15:30: [employer] 00 [id number] Integument skin Integument Active Angelica integrity 08-24 Noelle risk 16:02: [id number] 00 Medication knowledge/s Meds Resolve 2018-09-22 Angelica darnell d 09-07 15:00:00 Marianela deficit: pt 15:30: [employer] 00 [id number] Respiratory dyspnea Respirator Active Angelica present y 11-30 Noelle 14:26: [id number] 00 Sensory impaired Sensory Active Zoila verbal 12-09 [place] communicati 10:20: [id number] on 00 Sensory impaired Sensory Active Zoila hearing 12-09 [place] 10:20: [id number] 00 Activity self-care Activity Active 2018-03 Angelica deficit 0-10 Noelle 15:15: [id number] 00 Elimination urinary Eliminatio Active 2018-03 Angelica incontinenc n 0-17 Noelle e 15:33: [id number] 00 Allergies, Adverse Reactions, Alerts Allergy Name [...] (SIG) Name Name acetaminoph acetaminoph 2017- No [place] 2 tab Unknown en 325 mg en 325 mg 11-28 Bobo MORENO tablet tablet amLODIPine amLODIPine 2016- No [place] 1 tab Unknown 5 mg tablet 5 mg tablet 06-26 05- Bobo MORENO aspirin 81 aspirin 81 No [place] 1 tab Unknown mg mg 6 Bobo MORENO tablet,ivania tablet,ivania yed release yed release atorvastati atorvastati No [place] 1 tab Unknown n 80 mg n 80 mg 06-26 Bobo MORENO tablet tablet baclofen 10 baclofen 10 No [place] 1 tab Unknown mg tablet mg tablet 11-28 Bobo MORENO citalopram citalopram 2016- No [place] 1 tab Unknown 10 mg 10 mg 06-26-20 Bobo MORENO tablet tablet Colace 200 Colace 200 2016- No [place] 1 tab Unknown mg capsule mg capsule 09-21 Bobo MORENO docusate docusate 2015- No [place] 3 cap Unknown sodium 100 sodium 100 11-28 0824 Bobo MORENO mg capsule mg capsule gabapentin gabapentin 2012-03 No [place] 1-2 Cap Unknown 300 mg 300 mg 2- Bobo MORENO capsule capsule guaiFENesin guaiFENesin 2016- No [place] 10 ML Unknown AC 10 AC 10 11-28 Bobo MORENO mg-100 mg/5 mg-100 mg/5 mL oral mL oral liquid liquid HYDROcodone HYDROcodone 2016- No [place] 1 tab Unknown 10 10 11-28 Bobo MORENO mg-acetamin mg-acetamin ophen 325 ophen 325 mg tablet mg tablet latanoprost latanoprost 2018- No [place] 1 drop Unknown 0.005 % eye 0.005 % eye 05-23- Bobo MORENO drops drops metoprolol metoprolol No [place] 1 tab Unknown tartrate 25 tartrate 25 03-25 Bobo MORENO mg tablet mg tablet Milk of Milk of No [place] 30 ML Unknown Magnesia Magnesia 11-28 Bobo MORENO 400 mg/5 mL 400 mg/5 mL oral oral suspension suspension nortriptyli nortriptyli 2016- No [place] 1 Cap Unknown ne 10 mg ne 10 mg 06-26- Bobo MORENO capsule capsule omeprazole omeprazole No [place] 1 Cap Unknown 20 mg 20 mg 11-29 ,Bobo capsule,del capsule,del ayed ayed release release Topamax 100 Topamax 100 2018- No [place] 1 tab Unknown mg tablet mg tablet 11-25 Bobo MORENO Topamax 25 Topamax 25 2018- No [place] 2 tab Unknown mg tablet mg tablet 04-18 Bobo MORENO Tricor 145 Tricor 145 2016- No [place] 1 tab Unknown mg tablet mg tablet 11-28 Bobo MORENO sulfamethox sulfamethox 2015- No [place] one Unknown azole 400 azole 400 09-25 Bobo MORENO tablet mg-trimetho mg-trimetho prim 80 mg prim 80 mg tablet tablet tamsulosin tamsulosin 2017- No [place] one Unknown 0.4 mg 0.4 mg 09-25 Bobo MORENO capsule capsule capsule nitrofurant nitrofurant No [place] 1 Unknown oin oin 8-11 Bobo MORENO monohydrate monohydrate /macrocryst /macrocryst als 100 mg als 100 mg capsule capsule docusate docusate 2016- No [place] 3 cap Unknown sodium 100 sodium 100 11-04 Bobo MORENO mg capsule mg capsule gentamicin gentamicin 2015-03- No [place] 1 drop Unknown 0.3 % eye 0.3 % eye 03-30 ,Bobo drops drops nortriptyli nortriptyli 2018- No [place] 2 Cap Unknown ne 10 mg ne 10 mg 04-28 Bobo MORENO (20 mg) capsule capsule hydroCHLORO hydroCHLORO No [place] 1 Unknown thiazide 25 thiazide 25 06-24 ,Bobo tablet mg tablet mg tablet (25 mg) citalopram citalopram No [place] 1tab Unknown 20 mg 20 mg 07-01 ,Bobo tablet tablet fenofibrate fenofibrate 2016- No [place] 1 Unknown nanocrystal nanocrystal 07-08 Bobo MORENO tablet lized 145 lized 145 (145 mg tablet mg tablet mg) doxycycline doxycycline 2016- No [place] 1 Unknown hyclate 100 hyclate 100 07-09- Bobo MORENO tablet mg tablet mg tablet (100 mg) Colace 100 Colace 100 2016-03- No [place] 3 Unknown mg capsule mg capsule 09-29 Bobo MORENO capsule s fenofibrate fenofibrate 2016-03- No [place] 1 cap Unknown 150 mg 150 mg 03-15 ,Bobo capsule capsule acetaminoph acetaminoph 2018- No [place] 1-2 Unknown en 500 mg en 500 mg 03-15 Bobo MORENO Tablets tablet tablet clindamycin clindamycin 2017- No [place] 150 mg Unknown HCl 150 mg HCl 150 mg 04-04- Bobo MORENO capsule capsule doxycycline doxycycline 2017- No [place] 1 Unknown monohydrate monohydrate 05-17 Bobo MORENO 100 mg 100 mg capsule capsule senna 8.6 senna 8.6 No [place] 1 tab Unknown mg tablet mg tablet 06-03 Bobo MORENO hold for diarrhe a Colace 100 Colace 100 No [place] Unknown Unknown mg capsule mg capsule 09-29 Bobo MORENO tamsulosin tamsulosin No [place] Unknown Unknown 0.4 mg 0.4 mg 09-29 ,Bobo capsule capsule doxycycline doxycycline 2018- No [place] Unknown Unknown 100 mg 100 mg 04-07 Bobo tablet tablet mupirocin 2 mupirocin 2 2018- No [place] Unknown Unknown % topical % topical 04-07 ,Bobo ointment ointment mupirocin 2 mupirocin 2 No [place] Unknown Unknown % topical % topical 04-07 ,Bobo ointment ointment oxybutynin oxybutynin No [place] Unknown Unknown chloride 5 chloride 5 04-07 rthy mg tablet mg tablet Rocio benzonatate benzonatate 2018- No [place] Unknown Unknown 100 mg 100 mg 08-17- ,Bobo capsule capsule azithromyci azithromyci 2018- No [place] Unknown Unknown n 250 mg n 250 mg 09-01 ,Bobo tablet tablet benzonatate benzonatate 2018- No [place] Unknown Unknown 100 mg 100 mg 09-04 ,Bobo capsule capsule topiramate topiramate No [place] Unknown Unknown 25 mg 25 mg 09-22 Bobo tablet tablet Neosporin Neosporin No [place] Unknown Unknown (lenard-segun-po (lenard-segun-po 09-22 MD,Bobo lym) 3.5 lym) 3.5 mg-400 mg-400 unit-5,000 unit-5,000 unit/gram unit/gram top top ointment ointment Tylenol 325 Tylenol 325 No [place] Unknown Unknown mg capsule mg capsule 09-22 MD,Bobo Artificial Artificial No [place] Unknown Unknown Tears Tears 09-22 MD,Bobo Xalatan Xalatan No [place] Unknown Unknown 0.005 % eye 0.005 % eye 09-22 ,Bobo drops drops Blue-emu Blue-emu No [place] Unknown Unknown super super 09-22 ,Bobo strenth strenth nortriptyli nortriptyli No [place] Unknown Unknown ne 10 mg ne 10 mg 11-16 ,Bobo capsule capsule Vital Signs Vital Name Observation Time Observation Value Comments SYSTOLIC mm[Hg] 2019-03-01 18:09:26 122 mm[Hg] mm[Hg] Method: Sit DIASTOLIC mm[Hg] 2019-03-01 18:09:26 80 mm[Hg] mm[Hg] Method: Sit PULSE 2019-03-01 18:09:26 83 /min /min RESP RATE 2019-03-01 18:09:26 16 /min /min TEMP 2019-03-01 18:09:26 98 [degF] Procedures This patient has no known procedures. Results This patient has no known results.
--- OUTSIDE RECORDS SUMMARY | 2019-04-15 14:09 | XMS REPORT ---
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 Aphasia Aphasia Diagnosis Active Angeliac following following 11-28 Noelle unspecified unspecified [id number] cerebrovasc cerebrovasc ular ular disease disease Chronic Chronic Diagnosis Active Angelica venous venous 11-28 Noelle hypertensio hypertensio [id number] n w/o comp n w/o comp of l low of l low extrem extrem Essential Essential Diagnosis Active Angelica (primary) (primary) 11-28 Noelle hypertensio hypertensio [id number] n n 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-28 Noelle emo def emo def [id number] following following unsp unsp cerebvasc cerebvasc disease disease 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, disorder, 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 recurrent, recurrent, unspecified unspecified Unspecified Unspecified Diagnosis Active Angelica open-angle open-angle Noelle glaucoma, glaucoma, [id number] stage stage unspecified unspecified Mixed Mixed Diagnosis Active Angelica hyperlipide hyperlipide Noelle lilly lilly [id number] Acquired Acquired Diagnosis Active Angelica absence of absence of Noelle unspecified unspecified [id number] leg above leg above knee knee Thrombotic Thrombotic Diagnosis Active Angelica microangiop microangiop Noelle rehan rehan [id number] Medication knowledge/s Meds Resolve 2015-09-16 Jackie darnell d 2-11 18:04:00 Sinnigen deficit: pt 15:50: [id number] 00 Diagnoses knowledge/s Diagnoses Resolve 2016-03-17 Tammee kill d 2- 15:00:00 Cesar-Hor deficit: pt 15:50: an 00 Diagnoses knowledge/s Diagnoses Resolve 2016-03-17 Tammee kill d 2-11 15:00:00 Cesar-Hor deficit: cg 15:50: an 00 Pain knowledge/s Pain Mgmt Resolve 2015-09-16 Luz Maria kill d 3 18:04:00 Samuels deficit: pt 15:45: [id number] 00 Cardio hypertensio Cardiovasc Resolve 2016-09-08 Luz Maria n ular d 3 21:45:00 Samuels 15:45: [id number] 00 Integument skin Integument Resolve 2015-09-16 Luz Maria integrity d 05-14 18:04:00 Samuels risk 15:45: [id number] 00 Nutrition knowledge/s Nutrition Resolve 2015-12-10 Luz Maria kill d 3 15:20:00 Samuels deficit: pt 15:45: [id number] 00 Elimination constipatio Eliminatio Resolve 2015-09-16 Luz Maria n n d 05-14 18:04:00 Samuels 15:45: [id number] 00 Elimination urinary Eliminatio Resolve 2015-05-15 Luz Maria incontinenc n d 3 15:45:00 Arvind e 15:45: [id number] 00 Activity ADL Activity Resolve 2016-03-17 Luz Maria assistance d 3 15:00:00 Samuels required 15:45: [id number] 00 Safety fall risk Safety Resolve 2015-09-16 Luz Maria factor d 05-14 18:04:00 Samuels present 15:45: [id number] 00 Medication injectable Meds Resolve 2015-09-16 Luz Maria med d 05-14 18:04:00 Arvind assistance 15:45: [id number] required 00 Musculoskel transfer Musculoske Unknown Luz Maria etal assistance letal 05-14 Arvind required 15:45: [id number] 00 Safety knowledge/s Safety Resolve 2015-09-16 Jackie kill d 3-17 18:04:00 [place] deficit: pt 17:45: [id number] 00 Respiratory lung sounds Respirator Resolve 2015-07-16 Luz Maria deficit y d 07-15 18:27:00 Arvind 18:27: [id number] 00 Elimination urinary Eliminatio Resolve 2015-08-15 Luz Maria incontinenc n d 07-15 16:23:00 Samuels e 18:27: [id number] 00 Neuro depressive Neuro/Emot Resolve 2016-03-17 Luz Maria feelings ion d 07-15 15:00:00 Samuels present 18:27: [id number] 00 Elimination urinary Eliminatio Resolve 2015-09-16 Luz Maria incontinenc n d 09-15 18:04:00 Arvind e 18:04: [id number] 00 Elimination urinary Eliminatio Resolve 2015-11-12 Luz Maria incontinenc n d 10-02 16:30:00 Arvind e 15:29: [id number] 00 Cardio edema Cardiovasc Resolve 2016-09-08 Shoshana ular d 10-15 21:45:00 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 15:00: [id number] 00 Sensory impaired Sensory Resolve 2016-03-17 Shoshana verbal d 10-15 15:00:00 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 communicati 15:00: [id number] on 00 Elimination recurring Eliminatio Resolve 2015-12-10 Shoshana UTI n d 10-15 15:20:00 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 15:00: [id number] 00 Pain knowledge/s Pain Mgmt Resolve 2015-12-10 Luz Maria kill gretta 11-11 15:20:00 Arvind deficit: pt 16:30: [id number] 00 Cardio hypertensio Cardiovasc Unknown Luz Maria n rory 11-11 Arvind 16:30: [id number] 00 Elimination diarrhea Eliminatio Resolve 2015-12-10 Luz Maria n d 11-11 15:20:00 Arvind 16:30: [id number] 00 Medication oral med Meds Resolve 2016-09-08 Luz Maria assistance d 11-11 21:45:00 Samuels required 16:30: [id number] 00 Medication knowledge/s Meds Resolve 2016-03-17 Luz Maria kill d 8-31 15:00:00 Samuels deficit: pt 16:30: [id number] 00 Elimination urinary Eliminatio Resolve 2015-12-10 Almaz frequency n d 11-12 15:20:00 [place] 15:00: [id number] 00 Elimination urinary Eliminatio Resolve 2015-12-10 Almaz incontinenc n d 11-19 15:20:00 [place] e 14:00: [id number] 00 Safety fall risk Safety Resolve 2016-03-17 Luz Maria factor d 9 15:00:00 Samuels present 15:20: [id number] 00 Nutrition knowledge/s Nutrition Resolve 2015-032016-03-17 Almaz kill d 0 15:00:00 [place] deficit: pt 13:15: [id number] 00 Elimination urinary Eliminatio Resolve 2015-032016-01-07 Luz Maria incontinenc n d 0-20 16:01:00 Arvind e 15:28: [id number] 00 Pain frequent Pain Mgmt Resolve 2015-032018-04-26 Luz Maria pain d 0-26 15:08:00 Samuels 16:01: [id number] 00 Respiratory lung sounds Respirator Resolve 2015-032016-03-17 Luz Maria deficit y d 0-26 15:00:00 Arvind 16:01: [id number] 00 Respiratory dyspnea Respirator Resolve 2016-09-08 Luz Maria present y d 03-17 21:45:00 Arvind 15:00: [id number] 00 Integument pressure Integument Resolve 2018-06-27 Luz Maria ulcer d 03-17 15:00:00 Samuels present 15:00: [id number] 00 Integument skin Integument Resolve 2016-03-17 Luz Maria integrity d 1 15:00:00 Samuels risk 15:00: [id number] 00 Nutrition changing Nutrition Resolve 2016-09-20 Luz Maria weight/appe d 03-17 15:30:00 Arvind tite 15:00: [id number] 00 Nutrition knowledge/s Nutrition Resolve 2016-08-16 Almaz kill d 1-12 15:30:00 [place] deficit: pt 16:10: [id number] 00 Medication knowledge/s Meds Resolve 2016-09-08 Almaz kill d 1-12 21:45:00 [place] deficit: pt 16:10: [id number] 00 Nutrition nutritional Nutrition Resolve 2016-08-16 Luz Maria restriction d 2- 15:30:00 Samuels s 15:30: [id number] 00 Musculoskel transfer Musculoske Unknown Luz Maria etal assistance letal 05-06 Samuels required 15:15: [id number] 00 Musculoskel requires Musculoske Unknown Luz Maria etal human letal 05-06 Samuels assist to 15:15: [id number] leave home 00 Sensory impaired Sensory Resolve 2016-10-06 Stephanie verbal d 3 15:00:00 Haile communicati 15:35: [id number] on 00 Safety fall risk Safety Resolve 2016-08-16 Stephanie factor d 3 15:30:00 Haile present 15:35: [id number] 00 Safety risk for Safety Resolve 2016-08-16 Stephanie hospitaliza d 3 15:30:00 Haile tion 15:35: [id number] 00 Integument stasis Integument Resolve 2016-09-08 Stephanie ulcer d 07-08 21:45:00 Haile present 15:30: [id number] 00 Integument skin Integument Resolve 2016-09-08 Stephanie integrity d 07-08 21:45:00 Haile risk 15:30: [id number] 00 Neuro impaired Neuro/Emot Resolve 2016-10-06 Stephanie decision-ma ion d 08-10 15:00:00 Haile jacinda 16:00: [id number] 00 Safety risk for Safety Resolve 2016-09-08 Stephanie hospitaliza d 6- 21:45:00 Haile tion 16:00: [id number] 00 Musculoskel requires Musculoske Unknown Stephanie etal human letal 08-23 Haile assist to 16:00: [id number] leave home 00 Nutrition nutritional Nutrition Resolve 2016-09-20 Stephanie restriction d 09-06 15:30:00 Haile s 15:20: [id number] 00 Neuro depressive Neuro/Emot Resolve 2018-06-20 Stephanie feelings ion d 09-06 16:00:00 Haile present 15:20: [id number] 00 Safety fall risk Safety Resolve 2016-09-08 Stephanie factor d 09-06 21:45:00 Haile present 15:20: [id number] 00 Musculoskel transfer Musculoske Unknown Stephanie etal assistance letal 09-06 Haile required 15:20: [id number] 00 Pain frequent Pain Mgmt Unknown Stephanie pain 10-01 Haile 15:20: [id number] 00 Cardio edema Cardiovasc Resolve 2017-03-03 Stephanie ular d 10-01 16:22:00 Haile 15:20: [id number] 00 Activity ADL Activity Resolve 2016-10-06 Stephanie assistance d 10-01 15:00:00 Haile required 15:20: [id number] 00 Safety risk for Safety Resolve 2016-10-06 Stephanie hospitaliza d 10-01 15:00:00 Haile tion 15:20: [id number] 00 Musculoskel requires Musculoske Unknown Stephanie etal human letal 10-01 Haile assist to 15:20: [id number] leave home 00 Medication knowledge/s Meds Resolve 2016-10-06 Almaz kill d 10-04 15:00:00 [place] deficit: pt 14:55: [id number] 00 Medication knowledge/s Meds Resolve 2017-03-03 Almaz kill d 10-14 16:22:00 [place] deficit: pt 15:30: [id number] 00 Safety can be left Safety Resolve 2017-03-03 Demetria alone for d 10-21 16:22:00 Lizett only short 15:00: [id number] periods 00 Sensory impaired Sensory Resolve 2017-03-03 Irene verbal d 10-28 16:22:00 Mara majano 16:00: [id number] on 00 Neuro impaired Neuro/Emot Resolve 2017-03-03 Irene decision-ma ion d 10-28 16:22:00 Mara monaco 16:00: [id number] 00 Musculoskel requires Musculoske Unknown Irene etal special letal 10-28 Mara noelat 16:00: [id number] ion 00 Nutrition nutritional Nutrition Resolve 2017-03-03 Bryan restriction d 11-05 16:22:00 Mason RN s 15:28: [id number] 00 Safety fall risk Safety Resolve 2017-03-03 Bryan factor d 11-05 16:22:00 Mason RN present 15:28: [id number] 00 Musculoskel transfer Musculoske Unknown Bryan etal assistance letal 11-05 Mason RN required 15:28: [id number] 00 Respiratory dyspnea Respirator Resolve 2017-03-03 Almaz present y d 11-11 16:22:00 [place] 15:30: [id number] 00 Respiratory lung sounds Respirator Resolve 2016-032017-03-03 Sindhu deficit y d 0-12 16:22:00 Uribe 16:22: [id number] 00 Safety risk for Safety Resolve 2016-032017-03-03 Sindhu hospitaliza d 0-12 16:22:00 Uribe tion 16:22: [id number] 00 Integument pressure Integument Unknown 2016-03 Angelica ulcer 0-23 Farhat present 16:00: [id number] 00 Integument stasis Integument Active 2016-03 Angelica ulcer 0-23 Farhat present 16:00: [id number] 00 Integument skin Integument Resolve 2016-032017-03-03 Angelica integrity d 0-23 16:22:00 [place] risk 16:00: [id number] 00 Elimination urinary Eliminatio Resolve 2016-032017-03-03 Angelica incontinenc n d 04-12 16:22:00 Farhat e 17:25: [id number] 00 Elimination constipatio Eliminatio Resolve 2016-032017-03-03 Angelica n n d 04-12 16:22:00 [place] 17:25: [id number] 00 Integument other wound Integument Resolve 2016-032017-03-03 Angelica present d 2- 16:22:00 Farhat 16:22: [id number] 00 Elimination bowel Eliminatio Resolve 2016-032017-03-03 Angelica incontinenc n d 05-04 16:22:00 [place] e 16:22: [id number] 00 Endo/Enrique anti-coagul Endo/Enrique Resolve 2016-032018-06-20 Angelica ation d 05-09 16:00:00 Farhat therapy 16:03: [id number] 00 Elimination urinary Eliminatio Resolve 2016-032017-11-24 Angelica incontinenc n d 05-09 16:55:00 [place] e 16:03: [id number] 00 Elimination bowel Eliminatio Resolve 2016-032017-11-24 Angelica incontinenc n d 05-09 16:55:00 [place] e 16:03: [id number] 00 Respiratory dyspnea Respirator Resolve 2016-032018-03-01 Almaz present y d 05-11 15:31:00 [place] 15:50: [id number] 00 Safety fall risk Safety Resolve 2017-11-24 Sindhu factor d 03-15 16:55:00 Uribe present 16:20: [id number] 00 Safety risk for Safety Resolve 2017-11-24 Sindhu hospitaliza d 03-15 16:55:00 Uribe tion 16:20: [id number] 00 Safety can be left Safety Active Sindhu alone for 03-15 Uribe only short 16:20: [id number] periods 00 24 Hr Diet knowledge/s NT: 24Hr Resolve 2017-04-13 Bia kill Diet d 04-13 17:00:00 [place] deficit - 17:00: [id number] pt 00 24 Hr Diet knowledge/s NT: 24Hr Resolve 2017-04-13 Bia kill Diet d 04-13 17:00:00 [place] deficit - 17:00: [id number] cg 00 Integument skin Integument Resolve 2017-11-24 Angelica integrity d 05-06 16:55:00 [place] risk 16:38: [id number] 00 Neuro impaired Neuro/Emot Active Angelica decision-ma ion 05-06 Farhat monaco 16:38: [id number] 00 Safety cannot be Safety Active Angelica left alone 05-06 [place] 16:38: [id number] 00 Musculoskel requires Musculoske Resolve 2018-06-20 Angelica etal human letal d 05-06 16:00:00 Farhat assist to 16:38: [id number] leave home 00 Musculoskel requires Musculoske Resolve 2018-06-20 Angelica etal special letal d 05-06 16:00:00 [place] transportat 16:38: [id number] ion 00 Musculoskel transfer Musculoske Resolve 2018-06-20 Angelica etal assistance letal d 05-06 16:00:00 [place] required 16:38: [id number] 00 Test/Treatm venipunctur Test/Injec Active Angelica ent e ordered t/Fabrice 06-03 Noelle [id number] Elimination constipatio Eliminatio Resolve 2017-11-24 Angelica n n d 06-03 16:55:00 Noelle 19:06: [id number] 00 Neuro confusion Neuro/Emot Active Angelica present ion 06-03 Noelle 19:06: [id number] 00 Medication potential Meds Resolve 2018-06-20 Angelica clinically d 06-03 16:00:00 Noelle significant 19:06: [id number] medication 00 issue Medication oral med Meds Resolve 2018-06-06 Angelica assistance d 06-03 15:00:00 Noelle required 19:06: [id number] 00 Medication knowledge/s Meds Resolve 2018-06-20 Angelica kill d 06-03 16:00:00 Noelle deficit: pt 19:06: [id number] 00 Elimination urinary Eliminatio Resolve 2017-11-24 Angelica urgency n d 09-29 16:55:00 Noelle 15:32: [id number] 00 Elimination urinary Eliminatio Resolve 2017-11-24 Angelica frequency n d 09-29 16:55:00 Noelle 15:32: [id number] 00 Safety risk for Safety Resolve 2018-04-20 Almaz hospitaliza d 9-20 14:59:00 [place] tion 16:31: [id number] 00 Integument skin Integument Resolve 2017-032018-04-20 Angelica integrity d 0-18 14:59:00 Noelle risk 14:11: [id number] 00 Elimination urinary Eliminatio Resolve 2017-032018-12-21 Angelica incontinenc n d 0-18 15:15:00 Noelle e 14:11: [id number] 00 Safety fall risk Safety Resolve 2017-032018-04-20 Angelica factor d 0-18 14:59:00 Noelle present 14:11: [id number] 00 Integument pressure Integument Unknown Angelica ulcer 04-06 Noelle present 14:59: [id number] 00 Integument skin Integument Resolve 2018-06-27 Angelica integrity d 2-13 15:00:00 Noelle risk 15:08: [id number] 00 Elimination recurring Eliminatio Resolve 2018-12-21 Angelica UTI n d 2-13 15:15:00 Noelle 15:08: [id number] 00 Activity ADL Activity Active Angelica assistance 04-26 Noelle required 15:08: [id number] 00 Activity self-care Activity Resolve 2018-11-30 Angelica deficit d 2-13 14:26:00 Noelle 15:08: [id number] 00 Safety risk for Safety Resolve 2018-06-20 Angelica hospitaliza d 2-13 16:00:00 Noelle tion 15:08: [id number] 00 Safety fall risk Safety Resolve 2018-06-20 Angelica factor d 2-13 16:00:00 Noelle present 15:08: [id number] 00 Nutrition knowledge/s Nutrition Active Angelica kill 06-20 Noelle deficit: pt 16:00: [id number] 00 Nutrition nutritional Nutrition Active Angelica restriction 06-20 Noelle s 16:00: [id number] 00 Endo/Enrique anti-coagul Endo/Enrique Active Angelica ation 4-16 Noelle therapy 15:00: [id number] 00 Safety fall risk Safety Active Angelica factor 4-16 Noelle present 15:00: [id number] 00 Safety risk for Safety Active Angelica hospitaliza 4-16 Noelle tion 15:00: [id number] 00 Medication knowledge/s Meds Resolve 2018-08-03 Angelica darnell d 4-16 16:00:00 Noelle deficit: pt 15:00: [id number] 00 Musculoskel transfer Musculoske Unknown Angelica etal assistance letal 06-27 Noelle required 15:00: [id number] 00 Musculoskel requires Musculoske Unknown Angelica etal human letal -16 Noelle assist to 15:00: [id number] leave home 00 Elimination knowledge/s Eliminatio Resolve 2018-12-21 Angelica darnell n d 07-04 15:15:00 Noelle deficit: pt 15:15: [id number] 00 Test/Treatm tests Test/Injec Active Angelica ent ordered t/Fabrice 07-07 Noelle [id number] Musculoskel requires Musculoske Unknown Angelica etal special letal 07-18 Noelle transportat 15:45: [id number] ion 00 Medication knowledge/s Meds Resolve 2018-2018-08-31 Angelica darnell d 08-10 16:53:00 Marianela deficit: pt 15:30: [employer] 00 [id number] Integument skin Integument Active Angelica integrity 08-24 Noelle risk 16:02: [id number] 00 Medication knowledge/s Meds Resolve 2018-09-22 Angelica darnell d 09-07 15:00:00 Marianela deficit: pt 15:30: [employer] 00 [id number] Respiratory dyspnea Respirator Active Angelica present y 11-30 Noelle 14:26: [id number] 00 Sensory impaired Sensory Active Zoila verbal 12-09 Alcove communicati 10:20: [id number] on 00 Sensory impaired Sensory Active Zoila hearing 12-09 [place] 10:20: [id number] 00 Activity self-care Activity Active 2018-03 Angelica deficit 0-10 Noelle 15:15: [id number] 00 Elimination urinary Eliminatio Active 2018-03 Angelica incontinenc n 0-17 Noelle e 15:33: [id number] 00 Allergies, Adverse Reactions, Alerts Allergy Name [...] (SIG) Name Name acetaminoph acetaminoph 2017- No [place] 2 tab Unknown en 325 mg en 325 mg 11-28 Bobo MORENO tablet tablet amLODIPine amLODIPine 2016- No [place] 1 tab Unknown 5 mg tablet 5 mg tablet 06-26 05- Bobo MORENO aspirin 81 aspirin 81 No [place] 1 tab Unknown mg mg 6 Bobo MORENO tablet,ivania tablet,ivania yed release yed release atorvastati atorvastati No [place] 1 tab Unknown n 80 mg n 80 mg 06-26 Bobo MORENO tablet tablet baclofen 10 baclofen 10 No [place] 1 tab Unknown mg tablet mg tablet 11-28 Bobo MORENO citalopram citalopram 2016- No [place] 1 tab Unknown 10 mg 10 mg 06-26-20 Bobo MORENO tablet tablet Colace 200 Colace 200 2016- No [place] 1 tab Unknown mg capsule mg capsule 09-21 Bobo MORENO docusate docusate 2015- No [place] 3 cap Unknown sodium 100 sodium 100 11-28 0824 Bobo MORENO mg capsule mg capsule gabapentin gabapentin 2012-03 No [place] 1-2 Cap Unknown 300 mg 300 mg 2- Bobo MORENO capsule capsule guaiFENesin guaiFENesin 2016- No [place] 10 ML Unknown AC 10 AC 10 11-28 Bobo MORENO mg-100 mg/5 mg-100 mg/5 mL oral mL oral liquid liquid HYDROcodone HYDROcodone 2016- No [place] 1 tab Unknown 10 10 11-28 Bobo MORENO mg-acetamin mg-acetamin ophen 325 ophen 325 mg tablet mg tablet latanoprost latanoprost 2018- No [place] 1 drop Unknown 0.005 % eye 0.005 % eye 05-23- Bobo MORENO drops drops metoprolol metoprolol No [place] 1 tab Unknown tartrate 25 tartrate 25 03-25 Bobo MORENO mg tablet mg tablet Milk of Milk of No [place] 30 ML Unknown Magnesia Magnesia 11-28 Bobo MORENO 400 mg/5 mL 400 mg/5 mL oral oral suspension suspension nortriptyli nortriptyli 2016- No [place] 1 Cap Unknown ne 10 mg ne 10 mg 06-26- Bobo MORENO capsule capsule omeprazole omeprazole No [place] 1 Cap Unknown 20 mg 20 mg 11-29 ,Bobo capsule,del capsule,del ayed ayed release release Topamax 100 Topamax 100 2018- No [place] 1 tab Unknown mg tablet mg tablet 11-25 Bobo MORENO Topamax 25 Topamax 25 2018- No [place] 2 tab Unknown mg tablet mg tablet 04-18 Bobo MORENO Tricor 145 Tricor 145 2016- No [place] 1 tab Unknown mg tablet mg tablet 11-28 Bobo MORENO sulfamethox sulfamethox 2015- No [place] one Unknown azole 400 azole 400 09-25 Bobo MORENO tablet mg-trimetho mg-trimetho prim 80 mg prim 80 mg tablet tablet tamsulosin tamsulosin 2017- No [place] one Unknown 0.4 mg 0.4 mg 09-25 Bobo MORENO capsule capsule capsule nitrofurant nitrofurant No [place] 1 Unknown oin oin 8-11 Bobo MORENO monohydrate monohydrate /macrocryst /macrocryst als 100 mg als 100 mg capsule capsule docusate docusate 2016- No [place] 3 cap Unknown sodium 100 sodium 100 11-04 Bobo MORENO mg capsule mg capsule gentamicin gentamicin 2015-03- No [place] 1 drop Unknown 0.3 % eye 0.3 % eye 03-30 ,Bobo drops drops nortriptyli nortriptyli 2018- No [place] 2 Cap Unknown ne 10 mg ne 10 mg 04-28 Bobo MORENO (20 mg) capsule capsule hydroCHLORO hydroCHLORO No [place] 1 Unknown thiazide 25 thiazide 25 06-24 ,Bobo tablet mg tablet mg tablet (25 mg) citalopram citalopram No [place] 1tab Unknown 20 mg 20 mg 07-01 ,Bobo tablet tablet fenofibrate fenofibrate 2016- No [place] 1 Unknown nanocrystal nanocrystal 07-08 Bobo MORENO tablet lized 145 lized 145 (145 mg tablet mg tablet mg) doxycycline doxycycline 2016- No [place] 1 Unknown hyclate 100 hyclate 100 07-09- Bobo MORENO tablet mg tablet mg tablet (100 mg) Colace 100 Colace 100 2016-03- No [place] 3 Unknown mg capsule mg capsule 09-29 Bobo MORENO capsule s fenofibrate fenofibrate 2016-03- No [place] 1 cap Unknown 150 mg 150 mg 03-15 ,Bobo capsule capsule acetaminoph acetaminoph 2018- No [place] 1-2 Unknown en 500 mg en 500 mg 03-15 Bobo MORENO Tablets tablet tablet clindamycin clindamycin 2017- No [place] 150 mg Unknown HCl 150 mg HCl 150 mg 04-04- Bobo MORENO capsule capsule doxycycline doxycycline 2017- No [place] 1 Unknown monohydrate monohydrate 05-17 Bobo MORENO 100 mg 100 mg capsule capsule senna 8.6 senna 8.6 No [place] 1 tab Unknown mg tablet mg tablet 06-03 Bobo MORENO hold for diarrhe a Colace 100 Colace 100 No [place] Unknown Unknown mg capsule mg capsule 09-29 Bobo MORENO tamsulosin tamsulosin No [place] Unknown Unknown 0.4 mg 0.4 mg 09-29 ,Bobo capsule capsule doxycycline doxycycline 2018- No [place] Unknown Unknown 100 mg 100 mg 04-07 Bobo tablet tablet mupirocin 2 mupirocin 2 2018- No [place] Unknown Unknown % topical % topical 04-07 ,Bobo ointment ointment mupirocin 2 mupirocin 2 No [place] Unknown Unknown % topical % topical 04-07 ,Bobo ointment ointment oxybutynin oxybutynin No [place] Unknown Unknown chloride 5 chloride 5 04-07 rthy mg tablet mg tablet Rocio benzonatate benzonatate 2018- No [place] Unknown Unknown 100 mg 100 mg 08-17- ,Bobo capsule capsule azithromyci azithromyci 2018- No [place] Unknown Unknown n 250 mg n 250 mg 09-01 ,Bobo tablet tablet benzonatate benzonatate 2018- No [place] Unknown Unknown 100 mg 100 mg 09-04 ,Bobo capsule capsule topiramate topiramate No [place] Unknown Unknown 25 mg 25 mg 09-22 Bobo tablet tablet Neosporin Neosporin No [place] Unknown Unknown (lenard-segun-po (lenard-segun-po 09-22 MD,Bobo lym) 3.5 lym) 3.5 mg-400 mg-400 unit-5,000 unit-5,000 unit/gram unit/gram top top ointment ointment Tylenol 325 Tylenol 325 No [place] Unknown Unknown mg capsule mg capsule 09-22 MD,Bobo Artificial Artificial No [place] Unknown Unknown Tears Tears 09-22 MD,Bobo Xalatan Xalatan No [place] Unknown Unknown 0.005 % eye 0.005 % eye 09-22 ,Bobo drops drops Blue-emu Blue-emu No [place] Unknown Unknown super super 09-22 ,Bobo strenth strenth nortriptyli nortriptyli No [place] Unknown Unknown ne 10 mg ne 10 mg 11-16 ,Bobo capsule capsule Vital Signs Vital Name Observation Time Observation Value Comments SYSTOLIC mm[Hg] 2019-02-23 18:09:20 140 mm[Hg] mm[Hg] Method: Sit DIASTOLIC mm[Hg] 2019-02-23 18:09:20 80 mm[Hg] mm[Hg] Method: Sit PULSE 2019-02-23 18:09:20 72 /min /min RESP RATE 2019-02-23 18:09:20 18 /min /min TEMP 2019-02-23 18:09:20 97.3 [degF] Procedures This patient has no known procedures. Results This patient has no known results.
--- OUTSIDE RECORDS SUMMARY | 2019-04-15 14:09 | XMS REPORT ---
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 Aphasia Aphasia Diagnosis Active Angelica following following 11-28 Noelle unspecified unspecified [id number] cerebrovasc cerebrovasc ular ular disease disease Chronic Chronic Diagnosis Active Angelica venous venous 11-28 Noelle hypertensio hypertensio [id number] n w/o comp n w/o comp of l low of l low extrem extrem Essential Essential Diagnosis Active Angelica (primary) (primary) 11-28 Noelle hypertensio hypertensio [id number] n n 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-28 Noelle emo def emo def [id number] following following unsp unsp cerebvasc cerebvasc disease disease 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, disorder, 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, recurrent, unspecified unspecified Unspecified Unspecified Diagnosis Active Angelica open-angle open-angle Noelle glaucoma, glaucoma, [id number] stage stage unspecified unspecified Mixed Mixed Diagnosis Active Angelica hyperlipide hyperlipide Noelle lilly lilly [id number] Acquired Acquired Diagnosis Active Angelica absence of absence of Noelle unspecified unspecified [id number] leg above leg above knee knee Thrombotic Thrombotic Diagnosis Active Angelica microangiop microangiop Noelle rehan rehan [id number] Medication knowledge/s Meds Resolve 2015-09-16 Jackie darnell d 2-11 18:04:00 Sinnigen deficit: pt 15:50: [id number] 00 Diagnoses knowledge/s Diagnoses Resolve 2016-03-17 Tammee kill d 2- 15:00:00 Cesar-Hor deficit: pt 15:50: an 00 Diagnoses knowledge/s Diagnoses Resolve 2016-03-17 Tammee kill d 2-11 15:00:00 Cesar-Hor deficit: cg 15:50: an 00 Pain knowledge/s Pain Mgmt Resolve 2015-09-16 Luz Maria kill d 3 18:04:00 Samuels deficit: pt 15:45: [id number] 00 Cardio hypertensio Cardiovasc Resolve 2016-09-08 Luz Maria n ular d 3 21:45:00 Samuels 15:45: [id number] 00 Integument skin Integument Resolve 2015-09-16 Luz Maria integrity d 05-14 18:04:00 Samuels risk 15:45: [id number] 00 Nutrition knowledge/s Nutrition Resolve 2015-12-10 Luz Maria kill d 3 15:20:00 Samuels deficit: pt 15:45: [id number] 00 Elimination constipatio Eliminatio Resolve 2015-09-16 Luz Maria n n d 05-14 18:04:00 Samuels 15:45: [id number] 00 Elimination urinary Eliminatio Resolve 2015-05-15 Luz Maria incontinenc n d 3 15:45:00 Arvind e 15:45: [id number] 00 Activity ADL Activity Resolve 2016-03-17 Luz Maria assistance d 3 15:00:00 Samuels required 15:45: [id number] 00 Safety fall risk Safety Resolve 2015-09-16 Luz Maria factor d 05-14 18:04:00 Samuels present 15:45: [id number] 00 Medication injectable Meds Resolve 2015-09-16 Luz Maria med d 05-14 18:04:00 Arvind assistance 15:45: [id number] required 00 Musculoskel transfer Musculoske Unknown Luz Maria etal assistance letal 05-14 Arvind required 15:45: [id number] 00 Safety knowledge/s Safety Resolve 2015-09-16 Jackie kill d 3-17 18:04:00 Sinnigen deficit: pt 17:45: [id number] 00 Respiratory lung sounds Respirator Resolve 2015-07-16 Luz Maria deficit y d 07-15 18:27:00 Arvind 18:27: [id number] 00 Elimination urinary Eliminatio Resolve 2015-08-15 Luz Maria incontinenc n d 07-15 16:23:00 Samuels e 18:27: [id number] 00 Neuro depressive Neuro/Emot Resolve 2016-03-17 Luz Maria feelings ion d 07-15 15:00:00 Samuels present 18:27: [id number] 00 Elimination urinary Eliminatio Resolve 2015-09-16 Luz Maria incontinenc n d 09-15 18:04:00 Arvind e 18:04: [id number] 00 Elimination urinary Eliminatio Resolve 2015-11-12 Luz Maria incontinenc n d 10-02 16:30:00 Arvind e 15:29: [id number] 00 Cardio edema Cardiovasc Resolve 2016-09-08 Shoshana ular d 10-15 21:45:00 Jerram PROCESS VALIDATION ENGINEER 15:00: [id number] 00 Sensory impaired Sensory Resolve 2016-03-17 Shoshana verbal d 10-15 15:00:00 Jerram PROCESS VALIDATION ENGINEER communicati 15:00: [id number] on 00 Elimination recurring Eliminatio Resolve 2015-12-10 Shoshana UTI n d 10-15 15:20:00 Jerram PROCESS VALIDATION ENGINEER 15:00: [id number] 00 Pain knowledge/s Pain Mgmt Resolve 2015-12-10 Luz Maria kill gretta 11-11 15:20:00 Arvind deficit: pt 16:30: [id number] 00 Cardio hypertensio Cardiovasc Unknown Luz Maria n rory 11-11 Arvind 16:30: [id number] 00 Elimination diarrhea Eliminatio Resolve 2015-12-10 Luz Maria n d 11-11 15:20:00 Arvind 16:30: [id number] 00 Medication oral med Meds Resolve 2016-09-08 Luz Maria assistance d 11-11 21:45:00 Samuels required 16:30: [id number] 00 Medication knowledge/s Meds Resolve 2016-03-17 Luz Maria kill d 8-31 15:00:00 Samuels deficit: pt 16:30: [id number] 00 Elimination urinary Eliminatio Resolve 2015-12-10 Almaz frequency n d 11-12 15:20:00 [place] 15:00: [id number] 00 Elimination urinary Eliminatio Resolve 2015-12-10 Almaz incontinenc n d 11-19 15:20:00 [place] e 14:00: [id number] 00 Safety fall risk Safety Resolve 2016-03-17 Luz Maria factor d 9 15:00:00 Samuels present 15:20: [id number] 00 Nutrition knowledge/s Nutrition Resolve 2015-032016-03-17 Almaz kill d 0 15:00:00 [place] deficit: pt 13:15: [id number] 00 Elimination urinary Eliminatio Resolve 2015-032016-01-07 Luz Maria incontinenc n d 0-20 16:01:00 Arvind e 15:28: [id number] 00 Pain frequent Pain Mgmt Resolve 2015-032018-04-26 Luz Maria pain d 0-26 15:08:00 Samuels 16:01: [id number] 00 Respiratory lung sounds Respirator Resolve 2015-032016-03-17 Luz Maria deficit y d 0-26 15:00:00 Arvind 16:01: [id number] 00 Respiratory dyspnea Respirator Resolve 2016-09-08 Luz Maria present y d 03-17 21:45:00 Arvind 15:00: [id number] 00 Integument pressure Integument Resolve 2018-06-27 Luz Maria ulcer d 03-17 15:00:00 Samuels present 15:00: [id number] 00 Integument skin Integument Resolve 2016-03-17 Luz Maria integrity d 1 15:00:00 Samuels risk 15:00: [id number] 00 Nutrition changing Nutrition Resolve 2016-09-20 Luz Maria weight/appe d 03-17 15:30:00 Arvind tite 15:00: [id number] 00 Nutrition knowledge/s Nutrition Resolve 2016-08-16 Almaz kill d 1-12 15:30:00 [place] deficit: pt 16:10: [id number] 00 Medication knowledge/s Meds Resolve 2016-09-08 Almaz kill d 1-12 21:45:00 [place] deficit: pt 16:10: [id number] 00 Nutrition nutritional Nutrition Resolve 2016-08-16 Luz Maria restriction d 2- 15:30:00 Samuels s 15:30: [id number] 00 Musculoskel transfer Musculoske Unknown Luz Maria etal assistance letal 05-06 Samuels required 15:15: [id number] 00 Musculoskel requires Musculoske Unknown Luz Maria etal human letal 05-06 Samuels assist to 15:15: [id number] leave home 00 Sensory impaired Sensory Resolve 2016-10-06 Stephanie verbal d 3 15:00:00 Haile communicati 15:35: [id number] on 00 Safety fall risk Safety Resolve 2016-08-16 Stephanie factor d 3 15:30:00 Haile present 15:35: [id number] 00 Safety risk for Safety Resolve 2016-08-16 Stephanie hospitaliza d 3 15:30:00 Haile tion 15:35: [id number] 00 Integument stasis Integument Resolve 2016-09-08 Stephanie ulcer d 07-08 21:45:00 Haile present 15:30: [id number] 00 Integument skin Integument Resolve 2016-09-08 Stephanie integrity d 07-08 21:45:00 Haile risk 15:30: [id number] 00 Neuro impaired Neuro/Emot Resolve 2016-10-06 Stephanie decision-ma ion d 08-10 15:00:00 Haile jacinda 16:00: [id number] 00 Safety risk for Safety Resolve 2016-09-08 Stephanie hospitaliza d 6- 21:45:00 Haile tion 16:00: [id number] 00 Musculoskel requires Musculoske Unknown Stephanie etal human letal 08-23 Haile assist to 16:00: [id number] leave home 00 Nutrition nutritional Nutrition Resolve 2016-09-20 Stephanie restriction d 09-06 15:30:00 Haile s 15:20: [id number] 00 Neuro depressive Neuro/Emot Resolve 2018-06-20 Stephanie feelings ion d 09-06 16:00:00 Haile present 15:20: [id number] 00 Safety fall risk Safety Resolve 2016-09-08 Stephanie factor d 09-06 21:45:00 Haile present 15:20: [id number] 00 Musculoskel transfer Musculoske Unknown Stephanie etal assistance letal 09-06 Haile required 15:20: [id number] 00 Pain frequent Pain Mgmt Unknown Stephanie pain 10-01 Haile 15:20: [id number] 00 Cardio edema Cardiovasc Resolve 2017-03-03 Stephanie ular d 10-01 16:22:00 Haile 15:20: [id number] 00 Activity ADL Activity Resolve 2016-10-06 Stephanie assistance d 10-01 15:00:00 Haiel required 15:20: [id number] 00 Safety risk for Safety Resolve 2016-10-06 Stephanie hospitaliza d 10-01 15:00:00 Haile tion 15:20: [id number] 00 Musculoskel requires Musculoske Unknown Stephanie etal human letal 10-01 Haile assist to 15:20: [id number] leave home 00 Medication knowledge/s Meds Resolve 2016-10-06 Almaz kill d 10-04 15:00:00 [place] deficit: pt 14:55: [id number] 00 Medication knowledge/s Meds Resolve 2017-03-03 Almaz kill d 10-14 16:22:00 [place] deficit: pt 15:30: [id number] 00 Safety can be left Safety Resolve 2017-03-03 Demetria alone for d 10-21 16:22:00 Lizett only short 15:00: [id number] periods 00 Sensory impaired Sensory Resolve 2017-03-03 Irene verbal d 10-28 16:22:00 Mara majano 16:00: [id number] on 00 Neuro impaired Neuro/Emot Resolve 2017-03-03 Irene decision-ma ion d 10-28 16:22:00 Mara monaco 16:00: [id number] 00 Musculoskel requires Musculoske Unknown Irene etal special letal 10-28 Mara noelat 16:00: [id number] ion 00 Nutrition nutritional Nutrition Resolve 2017-03-03 Bryan restriction d 11-05 16:22:00 Mason RN s 15:28: [id number] 00 Safety fall risk Safety Resolve 2017-03-03 Bryan factor d 11-05 16:22:00 Mason RN present 15:28: [id number] 00 Musculoskel transfer Musculoske Unknown Bryan etal assistance letal 11-05 Mason RN required 15:28: [id number] 00 Respiratory dyspnea Respirator Resolve 2017-03-03 Almaz present y d 11-11 16:22:00 [place] 15:30: [id number] 00 Respiratory lung sounds Respirator Resolve 2016-032017-03-03 Sindhu deficit y d 0-12 16:22:00 Uribe 16:22: [id number] 00 Safety risk for Safety Resolve 2016-032017-03-03 Sindhu hospitaliza d 0-12 16:22:00 Uribe tion 16:22: [id number] 00 Integument pressure Integument Unknown 2016-03 Angelica ulcer 0-23 Farhat present 16:00: [id number] 00 Integument stasis Integument Active 2016-03 Angelica ulcer 0-23 Farhat present 16:00: [id number] 00 Integument skin Integument Resolve 2016-032017-03-03 Angelica integrity d 0-23 16:22:00 Louin risk 16:00: [id number] 00 Elimination urinary Eliminatio Resolve 2016-032017-03-03 Angelica incontinenc n d 04-12 16:22:00 Farhat e 17:25: [id number] 00 Elimination constipatio Eliminatio Resolve 2016-032017-03-03 Angelica n n d 04-12 16:22:00 Louin 17:25: [id number] 00 Integument other wound Integument Resolve 2016-032017-03-03 Angelica present d 2- 16:22:00 Farhat 16:22: [id number] 00 Elimination bowel Eliminatio Resolve 2016-032017-03-03 Angelica incontinenc n d 05-04 16:22:00 Louin e 16:22: [id number] 00 Endo/Enrique anti-coagul Endo/Enrique Resolve 2016-032018-06-20 Angelica ation d 05-09 16:00:00 Farhat therapy 16:03: [id number] 00 Elimination urinary Eliminatio Resolve 2016-032017-11-24 Angelica incontinenc n d 05-09 16:55:00 Louin e 16:03: [id number] 00 Elimination bowel Eliminatio Resolve 2016-032017-11-24 Angelica incontinenc n d 05-09 16:55:00 Louin e 16:03: [id number] 00 Respiratory dyspnea Respirator Resolve 2016-032018-03-01 Almaz present y d 05-11 15:31:00 [place] 15:50: [id number] 00 Safety fall risk Safety Resolve 2017-11-24 Sindhu factor d 03-15 16:55:00 Uribe present 16:20: [id number] 00 Safety risk for Safety Resolve 2017-11-24 Sindhu hospitaliza d 03-15 16:55:00 Uribe tion 16:20: [id number] 00 Safety can be left Safety Active Sindhu alone for 03-15 Uribe only short 16:20: [id number] periods 00 24 Hr Diet knowledge/s NT: 24Hr Resolve 2017-04-13 Bia kill Diet d 04-13 17:00:00 [place] deficit - 17:00: [id number] pt 00 24 Hr Diet knowledge/s NT: 24Hr Resolve 2017-04-13 Bia kill Diet d 04-13 17:00:00 [place] deficit - 17:00: [id number] cg 00 Integument skin Integument Resolve 2017-11-24 Angelica integrity d 05-06 16:55:00 Louin risk 16:38: [id number] 00 Neuro impaired Neuro/Emot Active Angelica decision-ma ion 05-06 Farhat monaco 16:38: [id number] 00 Safety cannot be Safety Active Angelica left alone 05-06 Louin 16:38: [id number] 00 Musculoskel requires Musculoske Resolve 2018-06-20 Angelica etal human letal d 05-06 16:00:00 Farhat assist to 16:38: [id number] leave home 00 Musculoskel requires Musculoske Resolve 2018-06-20 Angelica etal special letal d 05-06 16:00:00 Louin transportat 16:38: [id number] ion 00 Musculoskel transfer Musculoske Resolve 2018-06-20 Angelica etal assistance letal d 05-06 16:00:00 Louin required 16:38: [id number] 00 Test/Treatm venipunctur Test/Injec Active Angelica ent e ordered t/Fabrice 06-03 Noelle [id number] Elimination constipatio Eliminatio Resolve 2017-11-24 Angelica n n d 06-03 16:55:00 Noelle 19:06: [id number] 00 Neuro confusion Neuro/Emot Active Angelica present ion 06-03 Noelle 19:06: [id number] 00 Medication potential Meds Resolve 2018-06-20 Angelica clinically d 06-03 16:00:00 Noelle significant 19:06: [id number] medication 00 issue Medication oral med Meds Resolve 2018-06-06 Angelica assistance d 06-03 15:00:00 Noelle required 19:06: [id number] 00 Medication knowledge/s Meds Resolve 2018-06-20 Angelica kill d 06-03 16:00:00 Noelle deficit: pt 19:06: [id number] 00 Elimination urinary Eliminatio Resolve 2017-11-24 Angelica urgency n d 09-29 16:55:00 Noelle 15:32: [id number] 00 Elimination urinary Eliminatio Resolve 2017-11-24 Angelica frequency n d 09-29 16:55:00 Noelle 15:32: [id number] 00 Safety risk for Safety Resolve 2018-04-20 Almaz hospitaliza d 9-20 14:59:00 [place] tion 16:31: [id number] 00 Integument skin Integument Resolve 2017-032018-04-20 Angelica integrity d 0-18 14:59:00 Noelle risk 14:11: [id number] 00 Elimination urinary Eliminatio Resolve 2017-032018-12-21 Angelica incontinenc n d 0-18 15:15:00 Noelle e 14:11: [id number] 00 Safety fall risk Safety Resolve 2017-032018-04-20 Angelica factor d 0-18 14:59:00 Noelle present 14:11: [id number] 00 Integument pressure Integument Unknown Angelica ulcer 04-06 Noelle present 14:59: [id number] 00 Integument skin Integument Resolve 2018-06-27 Angelica integrity d 2-13 15:00:00 Noelle risk 15:08: [id number] 00 Elimination recurring Eliminatio Resolve 2018-12-21 Angelica UTI n d 2-13 15:15:00 Noelle 15:08: [id number] 00 Activity ADL Activity Active Angelica assistance 04-26 Noelle required 15:08: [id number] 00 Activity self-care Activity Resolve 2018-11-30 Angelica deficit d 2-13 14:26:00 Noelle 15:08: [id number] 00 Safety risk for Safety Resolve 2018-06-20 Angelica hospitaliza d 2-13 16:00:00 Noelle tion 15:08: [id number] 00 Safety fall risk Safety Resolve 2018-06-20 Angelica factor d 2-13 16:00:00 Noelle present 15:08: [id number] 00 Nutrition knowledge/s Nutrition Active Angelica kill 06-20 Noelle deficit: pt 16:00: [id number] 00 Nutrition nutritional Nutrition Active Angelica restriction 06-20 Noelle s 16:00: [id number] 00 Endo/Enrique anti-coagul Endo/Enrique Active Angelica ation 4-16 Noelle therapy 15:00: [id number] 00 Safety fall risk Safety Active Angelica factor 4-16 Noelle present 15:00: [id number] 00 Safety risk for Safety Active Angelica hospitaliza 4-16 Noelle tion 15:00: [id number] 00 Medication knowledge/s Meds Resolve 2018-08-03 Angelica darnell d 4-16 16:00:00 Noelle deficit: pt 15:00: [id number] 00 Musculoskel transfer Musculoske Unknown Angelica etal assistance letal 06-27 Noelle required 15:00: [id number] 00 Musculoskel requires Musculoske Unknown Angelica etal human letal -16 Noelle assist to 15:00: [id number] leave home 00 Elimination knowledge/s Eliminatio Resolve 2018-12-21 Angelica darnell n d 07-04 15:15:00 Noelle deficit: pt 15:15: [id number] 00 Test/Treatm tests Test/Injec Active Angelica ent ordered t/Fabrice 07-07 Noelle [id number] Musculoskel requires Musculoske Unknown Angelica etal special letal 07-18 Noelle transportat 15:45: [id number] ion 00 Medication knowledge/s Meds Resolve 2018-2018-08-31 Angelica darnell d 08-10 16:53:00 Marianela deficit: pt 15:30: [employer] 00 [id number] Integument skin Integument Active Angelica integrity 08-24 Noelle risk 16:02: [id number] 00 Medication knowledge/s Meds Resolve 2018-09-22 Angelica darnell d 09-07 15:00:00 Marianela deficit: pt 15:30: [employer] 00 [id number] Respiratory dyspnea Respirator Active Angelica present y 11-30 Noelle 14:26: [id number] 00 Sensory impaired Sensory Active Zoila verbal 12-09 [place] communicati 10:20: [id number] on 00 Sensory impaired Sensory Active Zoila hearing 12-09 [place] 10:20: [id number] 00 Activity self-care Activity Active 2018-03 Angelica deficit 0-10 Noelle 15:15: [id number] 00 Elimination urinary Eliminatio Active 2018-03 Angelica incontinenc n 0-17 Noelle e 15:33: [id number] 00 Allergies, Adverse Reactions, Alerts Allergy Name [...] (SIG) Name Name acetaminoph acetaminoph 2017- No [place] 2 tab Unknown en 325 mg en 325 mg 11-28 Bobo MORENO tablet tablet amLODIPine amLODIPine 2016- No [place] 1 tab Unknown 5 mg tablet 5 mg tablet 06-26 05- Bobo MORENO aspirin 81 aspirin 81 No [place] 1 tab Unknown mg mg 6 Bobo MORENO tablet,ivania tablet,ivania yed release yed release atorvastati atorvastati No [place] 1 tab Unknown n 80 mg n 80 mg 06-26 Bobo MORENO tablet tablet baclofen 10 baclofen 10 No [place] 1 tab Unknown mg tablet mg tablet 11-28 Bobo MORENO citalopram citalopram 2016- No [place] 1 tab Unknown 10 mg 10 mg 06-26-20 Bobo MORENO tablet tablet Colace 200 Colace 200 2016- No [place] 1 tab Unknown mg capsule mg capsule 09-21 Bobo MORENO docusate docusate 2015- No [place] 3 cap Unknown sodium 100 sodium 100 11-28 0824 Bobo MORENO mg capsule mg capsule gabapentin gabapentin 2012-03 No [place] 1-2 Cap Unknown 300 mg 300 mg 2- Bobo MORENO capsule capsule guaiFENesin guaiFENesin 2016- No [place] 10 ML Unknown AC 10 AC 10 11-28 Boob MORENO mg-100 mg/5 mg-100 mg/5 mL oral mL oral liquid liquid HYDROcodone HYDROcodone 2016- No [place] 1 tab Unknown 10 10 11-28 Bobo MORENO mg-acetamin mg-acetamin ophen 325 ophen 325 mg tablet mg tablet latanoprost latanoprost 2018- No [place] 1 drop Unknown 0.005 % eye 0.005 % eye 05-23- Bobo MORENO drops drops metoprolol metoprolol No [place] 1 tab Unknown tartrate 25 tartrate 25 03-25 Bobo MORENO mg tablet mg tablet Milk of Milk of No [place] 30 ML Unknown Magnesia Magnesia 11-28 Bobo MOERNO 400 mg/5 mL 400 mg/5 mL oral oral suspension suspension nortriptyli nortriptyli 2016- No [place] 1 Cap Unknown ne 10 mg ne 10 mg 06-26- Bobo MORENO capsule capsule omeprazole omeprazole No [place] 1 Cap Unknown 20 mg 20 mg 11-29 ,Bobo capsule,del capsule,del ayed ayed release release Topamax 100 Topamax 100 2018- No [place] 1 tab Unknown mg tablet mg tablet 11-25 Bobo MORENO Topamax 25 Topamax 25 2018- No [place] 2 tab Unknown mg tablet mg tablet 04-18 Bobo MORENO Tricor 145 Tricor 145 2016- No [place] 1 tab Unknown mg tablet mg tablet 11-28 Bobo MORENO sulfamethox sulfamethox 2015- No [place] one Unknown azole 400 azole 400 09-25 Bobo MORENO tablet mg-trimetho mg-trimetho prim 80 mg prim 80 mg tablet tablet tamsulosin tamsulosin 2017- No [place] one Unknown 0.4 mg 0.4 mg 09-25 Bobo MORENO capsule capsule capsule nitrofurant nitrofurant No [place] 1 Unknown oin oin 8-11 Bobo MORENO monohydrate monohydrate /macrocryst /macrocryst als 100 mg als 100 mg capsule capsule docusate docusate 2016- No [place] 3 cap Unknown sodium 100 sodium 100 11-04 Bobo MORENO mg capsule mg capsule gentamicin gentamicin 2015-03- No [place] 1 drop Unknown 0.3 % eye 0.3 % eye 03-30 ,Bobo drops drops nortriptyli nortriptyli 2018- No [place] 2 Cap Unknown ne 10 mg ne 10 mg 04-28 Bobo MORENO (20 mg) capsule capsule hydroCHLORO hydroCHLORO No [place] 1 Unknown thiazide 25 thiazide 25 06-24 ,Bobo tablet mg tablet mg tablet (25 mg) citalopram citalopram No [place] 1tab Unknown 20 mg 20 mg 07-01 ,Bobo tablet tablet fenofibrate fenofibrate 2016- No [place] 1 Unknown nanocrystal nanocrystal 07-08 Bobo MORENO tablet lized 145 lized 145 (145 mg tablet mg tablet mg) doxycycline doxycycline 2016- No [place] 1 Unknown hyclate 100 hyclate 100 07-09- Bobo MORENO tablet mg tablet mg tablet (100 mg) Colace 100 Colace 100 2016-03- No [place] 3 Unknown mg capsule mg capsule 09-29 Bobo MORENO capsule s fenofibrate fenofibrate 2016-03- No [place] 1 cap Unknown 150 mg 150 mg 03-15 ,Bobo capsule capsule acetaminoph acetaminoph 2018- No [place] 1-2 Unknown en 500 mg en 500 mg 03-15 Bobo MORENO Tablets tablet tablet clindamycin clindamycin 2017- No [place] 150 mg Unknown HCl 150 mg HCl 150 mg 04-04- Bobo MORENO capsule capsule doxycycline doxycycline 2017- No [place] 1 Unknown monohydrate monohydrate 05-17 Bobo MORENO 100 mg 100 mg capsule capsule senna 8.6 senna 8.6 [place] 1 tab Unknown mg tablet mg tablet 06-03 Bobo MORENO hold for diarrhe a Colace 100 Colace 100 No [place] Unknown Unknown mg capsule mg capsule 09-29 Bobo MORENO tamsulosin tamsulosin No [place] Unknown Unknown 0.4 mg 0.4 mg 09-29 ,Bobo capsule capsule doxycycline doxycycline 2018- No [place] Unknown Unknown 100 mg 100 mg 04-07 Bobo tablet tablet mupirocin 2 mupirocin 2 2018- No [place] Unknown Unknown % topical % topical 04-07 ,Bobo ointment ointment mupirocin 2 mupirocin 2 No [place] Unknown Unknown % topical % topical 04-07 ,Bobo ointment ointment oxybutynin oxybutynin No [place] Unknown Unknown chloride 5 chloride 5 04-07 rthy mg tablet mg tablet Rocio benzonatate benzonatate 2018- No [place] Unknown Unknown 100 mg 100 mg 08-17- ,Bobo capsule capsule azithromyci azithromyci 2018- No [place] Unknown Unknown n 250 mg n 250 mg 09-01 ,Bobo tablet tablet benzonatate benzonatate 2018- No [place] Unknown Unknown 100 mg 100 mg 09-04 ,Bobo capsule capsule topiramate topiramate No [place] Unknown Unknown 25 mg 25 mg 09-22 Bobo tablet tablet Neosporin Neosporin No [place] Unknown Unknown (lenard-segun-po (lenard-segun-po 09-22 MD,Bobo lym) 3.5 lym) 3.5 mg-400 mg-400 unit-5,000 unit-5,000 unit/gram unit/gram top top ointment ointment Tylenol 325 Tylenol 325 No [place] Unknown Unknown mg capsule mg capsule 09-22 MD,Bobo Artificial Artificial No [place] Unknown Unknown Tears Tears 09-22 MD,Bobo Xalatan Xalatan No [place] Unknown Unknown 0.005 % eye 0.005 % eye 09-22 ,Bobo drops drops Blue-emu Blue-emu No [place] Unknown Unknown super super 09-22 ,Bobo strenth strenth nortriptyli nortriptyli No [place] Unknown Unknown ne 10 mg ne 10 [...]
--- OUTSIDE RECORDS SUMMARY | 2019-04-15 14:09 | XMS REPORT ---
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 Chronic Chronic Diagnosis Active Angelica venous venous 11-28 Noelle hypertensio hypertensio [id number] n w/o comp n w/o comp of l low of l low extrem extrem Essential Essential Diagnosis Active Angelica (primary) (primary) 11-28 Noelle hypertensio hypertensio [id number] n n 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-28 Noelle emo def emo def [id number] following following unsp unsp cerebvasc cerebvasc disease disease 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, disorder, 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, recurrent, unspecified unspecified Unspecified Unspecified Diagnosis Active Angelica open-angle open-angle Noelle glaucoma, glaucoma, [id number] stage stage unspecified unspecified Mixed Mixed Diagnosis Active Angelica hyperlipide hyperlipide Noelle lilly lilly [id number] Acquired Acquired Diagnosis Active Angelica absence of absence of Noelle unspecified unspecified [id number] leg above leg above knee knee Thrombotic Thrombotic Diagnosis Active Angelica microangiop microangiop Noelle rehan rehan [id number] Medication knowledge/s Meds Resolve 2015-09-16 Jackie darnell d 2-11 18:04:00 Sinnigen deficit: pt 15:50: [id number] 00 Diagnoses knowledge/s Diagnoses Resolve 2016-03-17 Tammee kill d 2- 15:00:00 Cesar-Hor deficit: pt 15:50: an 00 Diagnoses knowledge/s Diagnoses Resolve 2016-03-17 Tammee kill d 2-11 15:00:00 Cesar-Hor deficit: cg 15:50: an 00 Pain knowledge/s Pain Mgmt Resolve 2015-09-16 Luz Maria kill d 3 18:04:00 Samuels deficit: pt 15:45: [id number] 00 Cardio hypertensio Cardiovasc Resolve 2016-09-08 Luz Maria n ular d 3 21:45:00 Samuels 15:45: [id number] 00 Integument skin Integument Resolve 2015-09-16 Luz Maria integrity d 05-14 18:04:00 Samuels risk 15:45: [id number] 00 Nutrition knowledge/s Nutrition Resolve 2015-12-10 Luz Maria kill d 3 15:20:00 Samuels deficit: pt 15:45: [id number] 00 Elimination constipatio Eliminatio Resolve 2015-09-16 Luz Maria n n d 05-14 18:04:00 Samuels 15:45: [id number] 00 Elimination urinary Eliminatio Resolve 2015-05-15 Luz Maria incontinenc n d 3 15:45:00 Arvind e 15:45: [id number] 00 Activity ADL Activity Resolve 2016-03-17 Luz Maria assistance d 3 15:00:00 Samuels required 15:45: [id number] 00 Safety fall risk Safety Resolve 2015-09-16 Luz Maria factor d 05-14 18:04:00 Samuels present 15:45: [id number] 00 Medication injectable Meds Resolve 2015-09-16 Luz Maria med d 05-14 18:04:00 Arvind assistance 15:45: [id number] required 00 Musculoskel transfer Musculoske Unknown Luz Maria etal assistance letal 05-14 Arvind required 15:45: [id number] 00 Safety knowledge/s Safety Resolve 2015-09-16 Jackie kill d 3-17 18:04:00 Sinnigen deficit: pt 17:45: [id number] 00 Respiratory lung sounds Respirator Resolve 2015-07-16 Luz Maria deficit y d 07-15 18:27:00 Arvind 18:27: [id number] 00 Elimination urinary Eliminatio Resolve 2015-08-15 Luz Maria incontinenc n d 07-15 16:23:00 Samuels e 18:27: [id number] 00 Neuro depressive Neuro/Emot Resolve 2016-03-17 Luz Maria feelings ion d 07-15 15:00:00 Samuels present 18:27: [id number] 00 Elimination urinary Eliminatio Resolve 2015-09-16 Luz Maria incontinenc n d 09-15 18:04:00 Arvind e 18:04: [id number] 00 Elimination urinary Eliminatio Resolve 2015-11-12 Luz Maria incontinenc n d 10-02 16:30:00 Arvind e 15:29: [id number] 00 Cardio edema Cardiovasc Resolve 2016-09-08 Shoshana ular d 10-15 21:45:00 Jerram [employer] 15:00: [id number] 00 Sensory impaired Sensory Resolve 2016-03-17 Shoshana verbal d 10-15 15:00:00 Jerram [employer] communicati 15:00: [id number] on 00 Elimination recurring Eliminatio Resolve 2015-12-10 Shoshana UTI n d 10-15 15:20:00 Jerram [employer] SPECIALIST 15:00: [id number] 00 Pain knowledge/s Pain Mgmt Resolve 2015-12-10 Luz Maria kill gretta 11-11 15:20:00 Arvind deficit: pt 16:30: [id number] 00 Cardio hypertensio Cardiovasc Unknown Luz Maria n rory 11-11 Arvind 16:30: [id number] 00 Elimination diarrhea Eliminatio Resolve 2015-12-10 Luz Maria n d 11-11 15:20:00 Arvind 16:30: [id number] 00 Medication oral med Meds Resolve 2016-09-08 Luz Maria assistance d 11-11 21:45:00 Samuels required 16:30: [id number] 00 Medication knowledge/s Meds Resolve 2016-03-17 Luz Maria kill d 8-31 15:00:00 Samuels deficit: pt 16:30: [id number] 00 Elimination urinary Eliminatio Resolve 2015-12-10 Almaz frequency n d 11-12 15:20:00 Burney 15:00: [id number] 00 Elimination urinary Eliminatio Resolve 2015-12-10 Almaz incontinenc n d 11-19 15:20:00 Burney e 14:00: [id number] 00 Safety fall risk Safety Resolve 2016-03-17 Luz Maria factor d 9 15:00:00 Samuels present 15:20: [id number] 00 Nutrition knowledge/s Nutrition Resolve 2015-032016-03-17 Almaz kill d 0 15:00:00 Burney deficit: pt 13:15: [id number] 00 Elimination urinary Eliminatio Resolve 2015-032016-01-07 Luz Maria incontinenc n d 0-20 16:01:00 Arvind e 15:28: [id number] 00 Pain frequent Pain Mgmt Resolve 2015-032018-04-26 Luz Maria pain d 0-26 15:08:00 Samuels 16:01: [id number] 00 Respiratory lung sounds Respirator Resolve 2015-032016-03-17 Luz Maria deficit y d 0-26 15:00:00 Arvind 16:01: [id number] 00 Respiratory dyspnea Respirator Resolve 2016-09-08 Luz Maria present y d 03-17 21:45:00 Arvind 15:00: [id number] 00 Integument pressure Integument Resolve 2018-06-27 Luz Maria ulcer d 03-17 15:00:00 Samuels present 15:00: [id number] 00 Integument skin Integument Resolve 2016-03-17 Luz Maria integrity d 1 15:00:00 Samuels risk 15:00: [id number] 00 Nutrition changing Nutrition Resolve 2016-09-20 Luz Maria weight/appe d 03-17 15:30:00 Arvind tite 15:00: [id number] 00 Nutrition knowledge/s Nutrition Resolve 2016-08-16 Almaz kill d 1-12 15:30:00 Burney deficit: pt 16:10: [id number] 00 Medication knowledge/s Meds Resolve 2016-09-08 Almaz kill d 1-12 21:45:00 Burney deficit: pt 16:10: [id number] 00 Nutrition nutritional Nutrition Resolve 2016-08-16 Luz Maria restriction d 2- 15:30:00 Samuels s 15:30: [id number] 00 Musculoskel transfer Musculoske Unknown Luz Maria etal assistance letal 05-06 Samuels required 15:15: [id number] 00 Musculoskel requires Musculoske Unknown Luz Maria etal human letal 05-06 Samuels assist to 15:15: [id number] leave home 00 Sensory impaired Sensory Resolve 2016-10-06 Stephanie verbal d 3 15:00:00 Haile communicati 15:35: [id number] on 00 Safety fall risk Safety Resolve 2016-08-16 Stephanie factor d 3 15:30:00 Haile present 15:35: [id number] 00 Safety risk for Safety Resolve 2016-08-16 Stephanie hospitaliza d 3 15:30:00 Haile tion 15:35: [id number] 00 Integument stasis Integument Resolve 2016-09-08 Stephanie ulcer d 07-08 21:45:00 Haile present 15:30: [id number] 00 Integument skin Integument Resolve 2016-09-08 Stephanie integrity d 07-08 21:45:00 Haile risk 15:30: [id number] 00 Neuro impaired Neuro/Emot Resolve 2016-10-06 Stephanie decision-ma ion d 08-10 15:00:00 Haile jacinda 16:00: [id number] 00 Safety risk for Safety Resolve 2016-09-08 Stephanie hospitaliza d 6- 21:45:00 Haile tion 16:00: [id number] 00 Musculoskel requires Musculoske Unknown Stephanie etal human letal 08-23 Haile assist to 16:00: [id number] leave home 00 Nutrition nutritional Nutrition Resolve 2016-09-20 Stephanie restriction d 09-06 15:30:00 Haile s 15:20: [id number] 00 Neuro depressive Neuro/Emot Resolve 2018-06-20 Stephanie feelings ion d 09-06 16:00:00 Haile present 15:20: [id number] 00 Safety fall risk Safety Resolve 2016-09-08 Stephanie factor d 09-06 21:45:00 Haile present 15:20: [id number] 00 Musculoskel transfer Musculoske Unknown Stephanie etal assistance letal 09-06 Haile required 15:20: [id number] 00 Pain frequent Pain Mgmt Unknown Stephanie pain 10-01 Haile 15:20: [id number] 00 Cardio edema Cardiovasc Resolve 2017-03-03 Stephanie ular d 10-01 16:22:00 Haile 15:20: [id number] 00 Activity ADL Activity Resolve 2016-10-06 Stephanie assistance d 10-01 15:00:00 Haile required 15:20: [id number] 00 Safety risk for Safety Resolve 2016-10-06 Stephanie hospitaliza d 10-01 15:00:00 Haile tion 15:20: [id number] 00 Musculoskel requires Musculoske Unknown Stephanie etal human letal 10-01 Haile assist to 15:20: [id number] leave home 00 Medication knowledge/s Meds Resolve 2016-10-06 Almaz kill d 10-04 15:00:00 Burney deficit: pt 14:55: [id number] 00 Medication knowledge/s Meds Resolve 2017-03-03 Almaz kill d 10-14 16:22:00 Burney deficit: pt 15:30: [id number] 00 Safety can be left Safety Resolve 2017-03-03 Demetria alone for d 10-21 16:22:00 Lizett only short 15:00: [id number] periods 00 Sensory impaired Sensory Resolve 2017-03-03 Irene verbal d 10-28 16:22:00 Mara majano 16:00: [id number] on 00 Neuro impaired Neuro/Emot Resolve 2017-03-03 Irene decision-ma ion d 10-28 16:22:00 Mara monaco 16:00: [id number] 00 Musculoskel requires Musculoske Unknown Irene etal special letal 10-28 Mara noelat 16:00: [id number] ion 00 Nutrition nutritional Nutrition Resolve 2017-03-03 Bryan restriction d 11-05 16:22:00 Mason RN s 15:28: [id number] 00 Safety fall risk Safety Resolve 2017-03-03 Bryan factor d 11-05 16:22:00 Mason RN present 15:28: [id number] 00 Musculoskel transfer Musculoske Unknown Bryan etal assistance letal 11-05 Mason RN required 15:28: [id number] 00 Respiratory dyspnea Respirator Resolve 2017-03-03 Almaz present y d 11-11 16:22:00 Burney 15:30: [id number] 00 Respiratory lung sounds Respirator Resolve 2016-032017-03-03 Sindhu deficit y d 0-12 16:22:00 Uribe 16:22: [id number] 00 Safety risk for Safety Resolve 2016-032017-03-03 Sindhu hospitaliza d 0-12 16:22:00 Uribe tion 16:22: [id number] 00 Integument pressure Integument Unknown 2016-03 Angelica ulcer 0-23 Farhat present 16:00: [id number] 00 Integument stasis Integument Active 2016-03 Angelica ulcer 0-23 Farhat present 16:00: [id number] 00 Integument skin Integument Resolve 2016-032017-03-03 Angelica integrity d 0-23 16:22:00 Thornton risk 16:00: [id number] 00 Elimination urinary Eliminatio Resolve 2016-032017-03-03 Angelica incontinenc n d 04-12 16:22:00 Farhat e 17:25: [id number] 00 Elimination constipatio Eliminatio Resolve 2016-032017-03-03 Angelica n n d 04-12 16:22:00 Thornton 17:25: [id number] 00 Integument other wound Integument Resolve 2016-032017-03-03 Angelica present d 2- 16:22:00 Farhat 16:22: [id number] 00 Elimination bowel Eliminatio Resolve 2016-032017-03-03 Angelica incontinenc n d 05-04 16:22:00 Thornton e 16:22: [id number] 00 Endo/Enrique anti-coagul Endo/Enrique Resolve 2016-032018-06-20 Angelica ation d 05-09 16:00:00 Farhat therapy 16:03: [id number] 00 Elimination urinary Eliminatio Resolve 2016-032017-11-24 Angelica incontinenc n d 05-09 16:55:00 Thornton e 16:03: [id number] 00 Elimination bowel Eliminatio Resolve 2016-032017-11-24 Angelica incontinenc n d 05-09 16:55:00 Thornton e 16:03: [id number] 00 Respiratory dyspnea Respirator Resolve 2016-032018-03-01 Almaz present y d 05-11 15:31:00 Burney 15:50: [id number] 00 Safety fall risk Safety Resolve 2017-11-24 Sindhu factor d 03-15 16:55:00 Uribe present 16:20: [id number] 00 Safety risk for Safety Resolve 2017-11-24 Sindhu hospitaliza d 03-15 16:55:00 Uribe tion 16:20: [id number] 00 Safety can be left Safety Active Sindhu alone for 03-15 Uribe only short 16:20: [id number] periods 00 24 Hr Diet knowledge/s NT: 24Hr Resolve 2017-04-13 Bia kill Diet d 04-13 17:00:00 Merced deficit - 17:00: [id number] pt 00 24 Hr Diet knowledge/s NT: 24Hr Resolve 2017-04-13 Bia kill Diet d 04-13 17:00:00 Merced deficit - 17:00: [id number] cg 00 Integument skin Integument Resolve 2017-11-24 Angelica integrity d 05-06 16:55:00 Thornton risk 16:38: [id number] 00 Neuro impaired Neuro/Emot Active Angelica decision-ma ion 05-06 Farhat monaco 16:38: [id number] 00 Safety cannot be Safety Active Angelica left alone 05-06 Thornton 16:38: [id number] 00 Musculoskel requires Musculoske Resolve 2018-06-20 Angelica etal human letal d 05-06 16:00:00 Farhat assist to 16:38: [id number] leave home 00 Musculoskel requires Musculoske Resolve 2018-06-20 Angelica etal special letal d 05-06 16:00:00 Thornton transportat 16:38: [id number] ion 00 Musculoskel transfer Musculoske Resolve 2018-06-20 Angelica etal assistance letal d 05-06 16:00:00 Thornton required 16:38: [id number] 00 Test/Treatm venipunctur Test/Injec Active Angelica ent e ordered t/Fabrice 06-03 Noelle [id number] Elimination constipatio Eliminatio Resolve 2017-11-24 Angelica n n d 06-03 16:55:00 Noelle 19:06: [id number] 00 Neuro confusion Neuro/Emot Active Angelica present ion 06-03 Noelle 19:06: [id number] 00 Medication potential Meds Resolve 2018-06-20 Angelica clinically d 06-03 16:00:00 Noelel significant 19:06: [id number] medication 00 issue Medication oral med Meds Resolve 2018-06-06 Angelica assistance d 06-03 15:00:00 Noelle required 19:06: [id number] 00 Medication knowledge/s Meds Resolve 2018-06-20 Angelica kill d 06-03 16:00:00 Noelle deficit: pt 19:06: [id number] 00 Elimination urinary Eliminatio Resolve 2017-11-24 Angelica urgency n d 09-29 16:55:00 Noelle 15:32: [id number] 00 Elimination urinary Eliminatio Resolve 2017-11-24 Angelica frequency n d 09-29 16:55:00 Noelle 15:32: [id number] 00 Safety risk for Safety Resolve 2018-04-20 Almaz hospitaliza d 9-20 14:59:00 Burney tion 16:31: [id number] 00 Integument skin Integument Resolve 2017-032018-04-20 Angelica integrity d 0-18 14:59:00 Noelle risk 14:11: [id number] 00 Elimination urinary Eliminatio Resolve 2017-032018-12-21 Angelica incontinenc n d 0-18 15:15:00 Noelle e 14:11: [id number] 00 Safety fall risk Safety Resolve 2017-032018-04-20 Angelica factor d 0-18 14:59:00 Noelle present 14:11: [id number] 00 Integument pressure Integument Unknown Angelica ulcer 04-06 Noelle present 14:59: [id number] 00 Integument skin Integument Resolve 2018-06-27 Angelica integrity d 2-13 15:00:00 Noelle risk 15:08: [id number] 00 Elimination recurring Eliminatio Resolve 2018-12-21 Angelica UTI n d 2-13 15:15:00 Noelle 15:08: [id number] 00 Activity ADL Activity Active Angelica assistance 04-26 Noelle required 15:08: [id number] 00 Activity self-care Activity Resolve 2018-11-30 Angelica deficit d 2-13 14:26:00 Noelle 15:08: [id number] 00 Safety risk for Safety Resolve 2018-06-20 Angelica hospitaliza d 2-13 16:00:00 Noelle tion 15:08: [id number] 00 Safety fall risk Safety Resolve 2018-06-20 Angelica factor d 2-13 16:00:00 Noelle present 15:08: [id number] 00 Nutrition knowledge/s Nutrition Active Angelica kill 06-20 Noelle deficit: pt 16:00: [id number] 00 Nutrition nutritional Nutrition Active Angelica restriction 06-20 Noelle s 16:00: [id number] 00 Endo/Enrique anti-coagul Endo/Enrique Active Angelica ation 4-16 Noelle therapy 15:00: [id number] 00 Safety fall risk Safety Active Angelica factor 4-16 Noelle present 15:00: [id number] 00 Safety risk for Safety Active Angelica hospitaliza 4-16 Noelle tion 15:00: [id number] 00 Medication knowledge/s Meds Resolve 2018-08-03 Angelica darnell d 4-16 16:00:00 Noelle deficit: pt 15:00: [id number] 00 Musculoskel transfer Musculoske Unknown Angelica etal assistance letal 06-27 Noelle required 15:00: [id number] 00 Musculoskel requires Musculoske Unknown Angelica etal human letal -16 Noelle assist to 15:00: [id number] leave home 00 Elimination knowledge/s Eliminatio Resolve 2018-12-21 Angelica darnell n d 07-04 15:15:00 Noelle deficit: pt 15:15: [id number] 00 Test/Treatm tests Test/Injec Active Angelica ent ordered t/Fabrice 07-07 Noelle [id number] Musculoskel requires Musculoske Unknown Angelica etal special letal 07-18 Noelle transportat 15:45: [id number] ion 00 Medication knowledge/s Meds Resolve 2018-2018-08-31 Angelica darnell d 08-10 16:53:00 Marianela deficit: pt 15:30: [employer] 00 [id number] Integument skin Integument Active Angelica integrity 08-24 Noelle risk 16:02: [id number] 00 Medication knowledge/s Meds Resolve 2018-09-22 Angelica darnell d 09-07 15:00:00 Marianela deficit: pt 15:30: [employer] 00 [id number] Respiratory dyspnea Respirator Active Angelica present y 11-30 Noelle 14:26: [id number] 00 Sensory impaired Sensory Active Zoila verbal 12-09 [place] communicati 10:20: [id number] on 00 Sensory impaired Sensory Active Zoila hearing 12-09 [place] 10:20: [id number] 00 Activity self-care Activity Active 2018-03 Angelica deficit 0-10 Noelle 15:15: [id number] 00 Elimination urinary Eliminatio Active 2018-03 Angelica incontinenc n 0-17 Noelle e 15:33: [id number] 00 Allergies, Adverse Reactions, Alerts Allergy Name [...] (SIG) Name Name acetaminoph acetaminoph 2017- No Milton 2 tab Unknown en 325 mg en 325 mg 11-28 Bobo MORENO tablet tablet amLODIPine amLODIPine 2016- No Milton 1 tab Unknown 5 mg tablet 5 mg tablet 06-26 05- Bobo MORENO aspirin 81 aspirin 81 No [place] 1 tab Unknown mg mg 6 Bobo MORENO tablet,ivania tablet,ivania yed release yed release atorvastati atorvastati No [place] 1 tab Unknown n 80 mg n 80 mg 06-26 Bobo MORENO tablet tablet baclofen 10 baclofen 10 No [place] 1 tab Unknown mg tablet mg tablet 11-28 Bobo MORENO citalopram citalopram 2016- No [place] 1 tab Unknown 10 mg 10 mg 06-26-20 Bobo MORENO tablet tablet Colace 200 Colace 200 2016- No [place] 1 tab Unknown mg capsule mg capsule 09-21 Bobo MORENO docusate docusate 2015- No [place] 3 cap Unknown sodium 100 sodium 100 11-28 0824 Bobo MORENO mg capsule mg capsule gabapentin gabapentin 2012-03 No [place] 1-2 Cap Unknown 300 mg 300 mg 2- Bobo MORENO capsule capsule guaiFENesin guaiFENesin 2016- No [place] 10 ML Unknown AC 10 AC 10 11-28 Bobo MORENO mg-100 mg/5 mg-100 mg/5 mL oral mL oral liquid liquid HYDROcodone HYDROcodone 2016- No [place] 1 tab Unknown 10 10 11-28 Bobo MORENO mg-acetamin mg-acetamin ophen 325 ophen 325 mg tablet mg tablet latanoprost latanoprost 2018- No [place] 1 drop Unknown 0.005 % eye 0.005 % eye 05-23- Bobo MORENO drops drops metoprolol metoprolol No [place] 1 tab Unknown tartrate 25 tartrate 25 03-25 Bobo MORENO mg tablet mg tablet Milk of Milk of No [place] 30 ML Unknown Magnesia Magnesia 11-28 Bobo MORENO 400 mg/5 mL 400 mg/5 mL oral oral suspension suspension nortriptyli nortriptyli 2016- No [place] 1 Cap Unknown ne 10 mg ne 10 mg 06-26- Bobo MORENO capsule capsule omeprazole omeprazole No [place] 1 Cap Unknown 20 mg 20 mg 11-29 ,Bobo capsule,del capsule,del ayed ayed release release Topamax 100 Topamax 100 2018- No [place] 1 tab Unknown mg tablet mg tablet 11-25 Bobo MORENO Topamax 25 Topamax 25 2018- No [place] 2 tab Unknown mg tablet mg tablet 04-18 Bobo MORENO Tricor 145 Tricor 145 2016- No [place] 1 tab Unknown mg tablet mg tablet 11-28 Bobo MORENO sulfamethox sulfamethox 2015- No [place] one Unknown azole 400 azole 400 09-25 Bobo MORENO tablet mg-trimetho mg-trimetho prim 80 mg prim 80 mg tablet tablet tamsulosin tamsulosin 2017- No [place] one Unknown 0.4 mg 0.4 mg 09-25 Bobo MORENO capsule capsule capsule nitrofurant nitrofurant No [place] 1 Unknown oin oin 8-11 Bobo MORENO monohydrate monohydrate /macrocryst /macrocryst als 100 mg als 100 mg capsule capsule docusate docusate 2016- No [place] 3 cap Unknown sodium 100 sodium 100 11-04 Bobo MORENO mg capsule mg capsule gentamicin gentamicin 2015-03- No [place] 1 drop Unknown 0.3 % eye 0.3 % eye 03-30 ,Bobo drops drops nortriptyli nortriptyli 2018- No [place] 2 Cap Unknown ne 10 mg ne 10 mg 04-28 Bobo MORENO (20 mg) capsule capsule hydroCHLORO hydroCHLORO No [place] 1 Unknown thiazide 25 thiazide 25 06-24 ,Bobo tablet mg tablet mg tablet (25 mg) citalopram citalopram No [place] 1tab Unknown 20 mg 20 mg 07-01 ,Bobo tablet tablet fenofibrate fenofibrate 2016- No [place] 1 Unknown nanocrystal nanocrystal 07-08 Bobo MORENO tablet lized 145 lized 145 (145 mg tablet mg tablet mg) doxycycline doxycycline 2016- No [place] 1 Unknown hyclate 100 hyclate 100 07-09- Bobo MORENO tablet mg tablet mg tablet (100 mg) Colace 100 Colace 100 2016-03- No [place] 3 Unknown mg capsule mg capsule 09-29 Bobo MORENO capsule s fenofibrate fenofibrate 2016-03- No [place] 1 cap Unknown 150 mg 150 mg 03-15 ,Bobo capsule capsule acetaminoph acetaminoph 2018- No [place] 1-2 Unknown en 500 mg en 500 mg 03-15 Bobo MORENO Tablets tablet tablet clindamycin clindamycin 2017- No [place] 150 mg Unknown HCl 150 mg HCl 150 mg 04-04- Bobo MORENO capsule capsule doxycycline doxycycline 2017- No [place] 1 Unknown monohydrate monohydrate 05-17 Bobo MORENO 100 mg 100 mg capsule capsule senna 8.6 senna 8.6 No [place] 1 tab Unknown mg tablet mg tablet 06-03 Bobo MORENO hold for diarrhe a Colace 100 Colace 100 No [place] Unknown Unknown mg capsule mg capsule 09-29 Bobo MORENO tamsulosin tamsulosin No [place] Unknown Unknown 0.4 mg 0.4 mg 09-29 ,Bobo capsule capsule doxycycline doxycycline 2018- No [place] Unknown Unknown 100 mg 100 mg 04-07 Bobo tablet tablet mupirocin 2 mupirocin 2 2018- No [place] Unknown Unknown % topical % topical 04-07 ,Bobo ointment ointment mupirocin 2 mupirocin 2 No [place] Unknown Unknown % topical % topical 04-07 ,Bobo ointment ointment oxybutynin oxybutynin No [place] Unknown Unknown chloride 5 chloride 5 04-07 rthy mg tablet mg tablet Rocio benzonatate benzonatate 2018- No [place] Unknown Unknown 100 mg 100 mg 08-17- ,Bobo capsule capsule azithromyci azithromyci 2018- No [place] Unknown Unknown n 250 mg n 250 mg 09-01 ,Bobo tablet tablet benzonatate benzonatate 2018- No [place] Unknown Unknown 100 mg 100 mg 09-04 ,Bobo capsule capsule topiramate topiramate No [place] Unknown Unknown 25 mg 25 mg 09-22 Bobo tablet tablet Neosporin Neosporin No [place] Unknown Unknown (lenard-segun-po (lenrad-segun-po 09-22 MD,Bobo lym) 3.5 lym) 3.5 mg-400 mg-400 unit-5,000 unit-5,000 unit/gram unit/gram top top ointment ointment Tylenol 325 Tylenol 325 No [place] Unknown Unknown mg capsule mg capsule 09-22 MD,Bobo Artificial Artificial No [place] Unknown Unknown Tears Tears 09-22 MD,Bobo Xalatan Xalatan No [place] Unknown Unknown 0.005 % eye 0.005 % eye 09-22 ,Bobo drops drops Blue-emu Blue-emu No [place] Unknown Unknown super super 09-22 ,Bobo strenth strenth nortriptyli nortriptyli No [place] Unknown Unknown ne 10 mg ne 10 [...]
[2019-04-15] MEDS ORDERED: Morphine 4 MG/ML VIAL (1 ml) 4 MG/ML VIAL IV ONE (14:14)
[2019-04-15] MEDS ORDERED: NS 0.9% 1000 ML** 1,000 ML IV ONE (14:25)
[2019-04-15 14:51] LABS: ABS Monocytes 0.5 10^3/ul (0-0.8); ABS Neutrophils 8.6 10^3/ul (1.5-7.7); Eosinophil % 0.1 %; Hematocrit 39 % (42-52); Hemoglobin 13.1 g/dL (14.0-18.0); Lymphocyte % 18.2 %; Mean Corpuscular HGB Conc 34 g/dL (31-36); Mean Corpuscular Hemoglobin 29 pg (27-31); Mean Corpuscular Volume 86 fL (80-94); Mean Platelet Volume 8.1 fL (7.4-10.4); Platelet Count 321 10^3/uL (150-450); Red Blood Count 4.55 10^6 /uL (4.18-5.48); Red Cell Distribution Width 15 % (10-15); White Blood Count 11.2 10^3/uL (3.5-10.8)
[2019-04-15 15:02] LABS: Albumin 3.7 g/dL (3.2-5.2); Albumin/Globulin Ratio 0.9 (1-3); BUN/Creatinine Ratio 12.3 (8-20); Calcium 8.8 mg/dL (8.6-10.3); EGFR African American 80.7 (>60); EGFR Non-African American 66.7 (>60); Globulin 4.2 g/dL (2-4); Total Bilirubin 0.7 mg/dL (0.2-1.0); Total Protein 7.9 g/dL (6.4-8.9)
[2019-04-15] MEDS ORDERED: Iohexol 300* (CONTRAST) 10 ML SDV IV ONE (15:04)
[2019-04-15 15:09] LABS: Potassium 2.7 mmol/L (3.5-5.0)
[2019-04-15] MEDS ORDERED: KCL 20 MEQ/100 ML IVPREMIX* 20 MEQ/100 ML BAG IV ONE (15:16)
[2019-04-15] MEDS ORDERED: Potassium Chlor TAB* 20 MEQ TAB.ER PO ONE (15:17)
[2019-04-15] MEDS ORDERED: Clindamycin 600 MG/D5W BAG(*) 600 MG/50 ML BAG IV ONE (16:50)
[2019-04-15 19:12] LABS: C Reactive Protein 112.94 mg/L (<8.01)
[2019-04-15] MEDS ORDERED: Morphine 4 MG/ML VIAL (1 ml) 4 MG/ML VIAL IV PRN (19:15)
[2019-04-15] MEDS: Baclofen TAB* 10 MG PO SCH (21:07)
[2019-04-15] MEDS: Topiramate TAB(*) 100 MG PO SCH (21:07)
[2019-04-15] MEDS: Enoxaparin(*) 40 MG/0.4 ML SYR SUBCUT SCH (21:07)
[2019-04-15] MEDS: Oxybutynin TAB* 5 MG PO SCH (21:07)
[2019-04-15] MEDS: Docusate CAP* 100 MG PO SCH (21:07)
[2019-04-15] MEDS: Gabapentin CAP(*) 300 MG PO SCH (21:07)
[2019-04-15] MEDS: Senna TAB 8.6 mg* TAB PO PRN (21:18)
[2019-04-15] MEDS: oxyCODONE/Acetamin 5/325 MG* TAB PO PRN (21:19)
[2019-04-15] MEDS: NS 0.9% 1000 ML** 1,000 ML IV SCH (21:21)
--- NOTE | 2019-04-15 21:58 | HP ---
CC: Dr. Hathaway; Dr. Hazel * HISTORY AND PHYSICAL: DATE OF ADMISSION: 04/15/19 PRIMARY CARE PROVIDER: Dr. Hathaway. NEUROLOGIST: Dr. Hazel. CHIEF COMPLAINT: Right buttock pain/back pain. HISTORY OF PRESENT ILLNESS: Mr. Cali is a 53-year-old male who has a history of stroke in 2008 with resultant aphasia and therefore, he is essentially nonverbal, who presents to the emergency room with complaints of back and right buttock pain. The patient's mother is present for my evaluation; however, she states that he lives alone and goes to groups. The staff at groups take him to his appointments. She does not know what exactly has been going on recently. She does note that the way he is behaving currently is the way he will behave when he is feeling pain. The patient does nod his head and state yes to having pain in his bottom. In 2018, the patient was admitted for a very similar situation. At that time, he was admitted for right buttock cellulitis but also felt to have subacute osteomyelitis of the right ischial tuberosity. At that time, the patient was treated with doxycycline for 6 weeks. In the ER, the patient was found to be tachycardic and have a mild leukocytosis and because of this, the hospitalist service was asked to admit the patient. PAST MEDICAL HISTORY: 1. 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 2. Right AKA. 3. Peripheral vascular disease. 4. History of pulmonary embolism. 5. Migraine headaches. 6. Seizure disorder. 7. Hypertension. 8. Dyslipidemia. 9. GERD. 10. Glaucoma. PAST SURGICAL HISTORY: Right AKA. MEDICATIONS: Accurate list is unknown, though from what I can tell from pharmacy records, the patient takes: 1. Topamax 100 mg at bedtime. 2. Celexa 20 mg daily. 3. Lipitor 80 mg daily. 4. Gabapentin 300 mg t.i.d. 5. Colace 100 mg twice daily. 6. Flomax 0.4 mg daily. 7. Omeprazole 20 mg daily. 8. Oxybutynin 25 mg p.o. twice daily. 9. Baclofen 10 mg twice daily. 10. Aspirin 81 mg daily. The patient's mom has an accurate medication list at home. She will be calling the floor with his med list, so this can be entered and reconciled appropriately. ALLERGIES: PENICILLIN, CARBAPENEM, CEPHALOSPORINS, and LATEX. FAMILY HISTORY: Mom has coronary disease. Dad has rheumatoid arthritis. SOCIAL HISTORY: The patient does not smoke or drink alcohol. He is disabled. His mom is his healthcare proxy. REVIEW OF SYSTEMS: Unobtainable from the patient due to his aphasia. PHYSICAL EXAMINATION GENERAL: The patient is a well-developed, obese, middle-aged male, lying in the stretcher, whimpering, but in no acute distress. VITAL SIGNS: Blood pressure 119/66, pulse 109, respirations 20, temp 99.6, O2 sat 97% on room air. HEENT: Pupils are equal. Extraocular muscles are intact. Oropharynx is clear. The patient wears dentures. There is no submandibular, cervical, or supraclavicular adenopathy. PULMONARY: Lungs are clear anteriorly. CARDIAC: Normal S1, S2. Heart rate is mildly tachycardic; it is regular. He has trace to 1+ lower extremity on the left. ABDOMEN: Bowel sounds present. Abdomen is soft, nontender, nondistended. MUSCULOSKELETAL: The patient has a right AKA. NEURO: Exam is deferred at this time. PSYCH: The patient is alert. He is aphasic and therefore, orientation questions are not asked. SKIN: Skin feels very hot. I do not see any erythema of the buttocks. There is what appears to be a plaque-like area of potential scars on the buttocks. The skin of the distal left lower extremity also has an odd appearance compared to skin just above and below this area. It is almost cuff like around the ankle. DIAGNOSTIC STUDIES/LAB DATA: WBC 11.2, hemoglobin 13.1, hematocrit 39, platelets 321. Sodium 133, potassium 2.7, chloride 97, CO2 27, BUN 14, creatinine 1.14, glucose 106, calcium 8.8. Bilirubin 0.7, AST 15, ALT 21, alk phos 76. CRP 112.94. Albumin 3.7. CT abdomen and pelvis, there is a sinus tract/ulceration, which extends from the inferior right gluteal skin surface to the right ischial tuberosity. There is no organized fluid collection or CT evidence of osteomyelitis, an IVC filter is in place. ASSESSMENT AND PLAN: Mr. Cali is a 53-year-old unfortunate male who had a CVA in 2008 with resultant aphasia and right spastic hemiparesis, who presented to the emergency room with complaints of back/buttock pain and is being admitted for possible right buttock cellulitis. 1. Possible right buttock cellulitis. The patient will be continued on clindamycin, which was initiated in the emergency room. His CRP is moderately elevated at 112. He has a mild leukocytosis and is tachycardic. His vital signs will be monitored closely. He will also continue on normal saline at 125 mL/hr. ID consultation may be warranted given his past history of possible subacute osteomyelitis involving the right ischium. 2. Hypokalemia. It is unclear why the patient is hypokalemic. I question if there may be from poor intake recently while he has been feeling unwell. He has received supplementation in the emergency room. BMP will be obtained tomorrow. 3. Seizure disorder. Continue at least Topamax at bedtime. There is a question based on previous records that perhaps he takes Topamax twice daily. Med reconciliation will need to be completed when his mom calls with his accurate med list. 4. Hyperlipidemia. Continue Lipitor. 5. Benign prostatic hyperplasia. Continue Flomax. 6. Gastroesophageal reflux disease. Continue omeprazole. 7. History of cerebrovascular accident. Continue aspirin, Lipitor, and baclofen. 8. DVT prophylaxis. According to the Adult Thrombosis Prophylaxis Risk Factor Assessment Guide, the patient has a total risk factor score of 6, making him the highest risk. He will be placed on Lovenox 40 mg subcutaneous daily. 9. Code status is full. TIME SPENT: Sixty-five minutes was spent admitting this patient. [id number]/[facility] #: [id number] LAITH
[2019-04-16] MEDS: Clindamycin 600 MG/D5W BAG(*) 600 MG/50 ML BAG IV SCH ×3 (02:23→17:35)
[2019-04-16] MEDS: Morphine INJ* 4 MG/ML 1 ML SYRINGE (NEW SYRINGE VERSION) IV PRN (04:19)
[2019-04-16 07:05] LABS: Hematocrit 38 % (42-52); Mean Corpuscular HGB Conc 34 g/dL (31-36); Mean Corpuscular Hemoglobin 29 pg (27-31); Mean Corpuscular Volume 86 fL (80-94); Mean Platelet Volume 8.1 fL (7.4-10.4); Platelet Count 296 10^3/uL (150-450); Red Blood Count 4.43 10^6 /uL (4.18-5.48); Red Cell Distribution Width 15 % (10-15); White Blood Count 10.7 10^3/uL (3.5-10.8)
[2019-04-16 07:23] LABS: BUN/Creatinine Ratio 11.2 (8-20); Calcium 8.5 mg/dL (8.6-10.3); EGFR African American 96.1 (>60); EGFR Non-African American 79.4 (>60); Potassium 3.5 mmol/L (3.5-5.0)
[2019-04-16] MEDS: NS 0.9% 1000 ML** 1,000 ML IV SCH ×2 (08:09→21:46)
[2019-04-16] MEDS: Gabapentin CAP(*) 300 MG PO SCH ×3 (08:12→20:20)
[2019-04-16] MEDS: oxyCODONE/Acetamin 5/325 MG* TAB PO PRN ×2 (08:13→18:07)
[2019-04-16] MEDS: Citalopram TAB* 20 MG PO SCH (08:14)
[2019-04-16] MEDS: Baclofen TAB* 10 MG PO SCH ×2 (08:14→20:21)
[2019-04-16] MEDS: Oxybutynin TAB* 5 MG PO SCH ×2 (08:14→20:20)
[2019-04-16] MEDS: Tamsulosin CAP* 0.4 MG PO SCH (08:15)
[2019-04-16] MEDS: Pantoprazole TAB * 40 MG TAB PO SCH (08:15)
[2019-04-16] MEDS: Atorvastatin* 80 MG TAB PO SCH (08:16)
[2019-04-16] MEDS: Aspirin EC TAB* 81 MG TAB.EC PO SCH (08:16)
[2019-04-16] MEDS: Docusate CAP* 100 MG PO SCH ×2 (08:16→20:21)
[2019-04-16] MEDS: Acetaminophen TAB* 325 MG PO PRN ×2 (13:33→20:20)
[2019-04-16 14:07] LABS: C Reactive Protein 171.08 mg/L (<8.01)
--- NOTE | 2019-04-16 15:31 | CONS ---
CONSULTATION REPORT: DATE OF CONSULT: 04/16/19 PRIMARY CARE PROVIDER: Bobo Hathaway MD PROVIDER REQUESTING CONSULTATION: Mandy Schaeffer NP CONSULTING SERVICE: Infectious Disease. PROVIDER: Jacqueline Faustin NP ATTENDING PROVIDER: Yair Garcia MD * (DICTATED BY JACQUELINE FAUSTIN, COMPRESSOR OPERATOR-C) REASON FOR CONSULTATION: History of right ischium osteomyelitis and CT findings of a sinus tract. IMPRESSION: 1. Right hip discomfort. The patient with a history of osteomyelitis with sinus tracking in this hip in the past. He has been treated with 6 -week course of oral doxycycline in 2018. Abdomen and pelvis CT scan with sinus tract inferior right gluteal skin surface to the right ischial tuberosity, there is no fluid collection or osteomyelitis. There is no obvious wound to the skin surface noted. He has full range of motion of the right hip. There is some tenderness with palpation of the right hip. He has been afebrile. He has no leukocytosis. Elevated CRP noted. Concern for possible chronic osteomyelitis in the setting of a chronic sinus tract. 2. History of cerebrovascular accident with aphasia. PLAN AND RECOMMENDATIONS Recommend continuing clindamycin for now. He has not had blood cultures; recommend obtaining a set of blood cultures. We could obtain an MRI of the pelvis outpatient. The patient will likely need a prolonged course of antibiotics as this likely represents an chronic osteomyelitis instead of a chronic sinus tract. HISTORY OF PRESENT ILLNESS: Mr. Cali is a 53-year-old male with past medical history significant for CVA with residual aphasia, peripheral vascular disease status post a right [id number] amputation, pulmonary embolus, status post IVC filter placement, migraines, seizure disorder, hypertension, hyperlipidemia, GERD, glaucoma, and history of right ischial osteomyelitis who is essentially nonverbal due to his aphasia secondary to a CVA who presented to the ER with complaints of back and right buttock pain. While in the emergency room, he had an abdomen and pelvis CT showing a sinus tract to the inferior right gluteal skin surface to the right ischial tuberosity , no fluid collection, no osteomyelitis. CRP 112.94. When asked if he is having pain in his right hip, he nods his head "yes." In regards to fevers, chills, urinary symptoms, he nods his head "no." When asked if he is having any other pain other than his right hip, he nods his head "no." The patient had a similar admission in 2018 when he was admitted for a right hip cellulitis and was diagnosed with a right buttock cellulitis without a wound. It had initially resolved on oral antibiotics, but he had persistent pain. He had a CT showing a sinus tract extending from the soft tissue down to the right ischial tuberosity. He received a 6-week course of doxycycline by mouth at that time. He had been doing well until recently developing right hip pain again. No leukocytosis. Afebrile with the exception of low-grade fevers when he first presented to the ER yesterday. PAST MEDICAL HISTORY: 1. CVA with residual aphasia. 2. Peripheral vascular disease. 3. Pulmonary embolus. 4. Migraines. 5. Seizure disorder. 6. Hypertension. 7. Hyperlipidemia. 8. GERD. 9. Glaucoma. 10. History of right ischial osteomyelitis status post 6 weeks of oral antibiotic treatment in 2018. PAST SURGICAL HISTORY: 1. Status post right [id number] amputation. 2. Status post IVC filter placement. MEDICATIONS: Home medications: 1. Topamax 100 mg by mouth daily at bedtime. 2. Citalopram 20 mg by mouth daily. 3. Atorvastatin 80 mg by mouth daily. 4. Gabapentin 300 mg by mouth 3 times daily. 5. Dulcolax 100 mg by mouth twice daily. 6. Tamsulosin 0.4 mg by mouth daily. 7. Omeprazole 20 mg by mouth daily. 8. Oxybutynin 2.5 mg by mouth twice daily. 9. Baclofen 10 by mouth twice daily. 10. Aspirin 81 mg by mouth daily. Hospital medications: 1. Acetaminophen 650 mg by mouth every 6 hours as needed for fever or pain. 2. Aspirin 81 mg by mouth daily. 3. Atorvastatin 80 mg by mouth daily. 4. Baclofen 10 mg by mouth twice daily. 5. Celexa 20 mg by mouth daily. 6. Clindamycin 600 mg IV every 8 hours. 7. Colace 100 mg by mouth twice daily. 8. Lovenox 40 mg subcutaneous daily. 9. Neurontin 300 mg by mouth 3 times daily. 10. Morphine sulfate 4 mg IV every 4 hours as needed for pain. 11. Oxybutynin 2.5 mg by mouth twice daily. 12. Percocet 5/325 one tablet by mouth every 8 hours as needed for pain. 13. Pantoprazole 40 mg by mouth daily. 14. Senna 8.6 mg 2 tablets by mouth at bedtime as needed for constipation. 15. Sodium chloride 125 mL intravenously an hour. 16. Tamsulosin 0.4 mg by mouth daily. 17. Topamax 100 mg by mouth daily at bedtime. ALLERGIES: PENICILLIN cause hives, CARBAPENEM, CEPHALOSPORINS with unknown reaction, and LATEX. FAMILY HISTORY: Mother with a history of heart disease. Father with a history of rheumatoid arthritis. SOCIAL HISTORY: He lives in a penitentiary type setting. No history of alcohol, tobacco, or recreational drug use. REVIEW OF SYSTEMS: I performed a 10-point review of systems. All the pertinent positives and negatives are mentioned in the history of present illness. The remaining review of systems is negative. PHYSICAL EXAMINATION: Vital Signs: Temperature 98.3, heart rate 94, respiratory rate 20, O2 sat 97% on room air, blood pressure 138/82. General Appearance: Appears to be in no acute distress, lying in bed. Head: Normocephalic, atraumatic. ENT: Extraocular movements are intact. No subconjunctival hemorrhage. Moist mucous membranes. Neck: Supple. No lymphadenopathy. Neurological: He is alert. Unable to determine orientation. He moves all extremities. Cardiovascular: Regular rate and rhythm. S1, S2 present. No murmurs, rubs, or gallops heard. Respiratory: Lungs are clear to auscultation bilateral. Abdomen: Soft, nontender, nondistended. Extremities: No lower extremity edema. Musculoskeletal: No clubbing or cyanosis noted. Moves all extremities. He has some tenderness with palpation of the right hip. Negative log roll. Psychological: The patient is calm and cooperative. Skin : No rashes or abnormalities seen. He is noted to have slight warmth to the right hip. He has an incision to the right [id number] amputation that is well healed. DIAGNOSTIC STUDIES/LAB DATA: Sodium 135, potassium 3.5, chloride 103, CO2 24, BUN 11, creatinine 0.98, glucose 135. White blood cell count 10.7, hemoglobin 13.0, hematocrit 38, platelet count 296. CRP 112.94 on 04/15/19. Please see impression and recommendations outlined above, recommendations will be discussed with Mandy Schaeffer NP. Thank you for asking us to see Mr. Cali in consultation. The case has been discussed with the attending, Dr. Yair Garcia, who agrees with the plan of care. Reviewed by CECILIA BARROW-Miles 04/18/19 1157 [id number]/[facility] #: [id number] MTDD
[2019-04-16 18:00] LABS: Urine Appearance Clear; Urine Bilirubin Negative (Negative); Urine Blood Negative (Negative); Urine Color Yellow; Urine Glucose Negative (Negative); Urine Ketones Negative (Negative); Urine Nitrite Negative (Negative); Urine Protein 1+(30 mg/dL) (Negative); Urine Specific Gravity 1.018 (1.010-1.030); Urine Urobilinogen Negative (Negative)
[2019-04-16 18:04] LABS: Urine Bacteria Absent (Absent); Urine Red Blood Cell Trace(0-2/hpf) (Absent); Urine Squamous Epithelial Cell Present (Absent); Urine White Blood Cell Trace(0-5/hpf) (Absent)
[2019-04-16] MEDS: Topiramate TAB(*) 100 MG PO SCH (20:21)
[2019-04-16] MEDS: Senna TAB 8.6 mg* TAB PO PRN (20:21)
[2019-04-16] MEDS ORDERED: Potassium Chlor TAB* 20 MEQ TAB.ER PO ONE (21:35)
--- NOTE | 2019-04-16 21:43 | PN ---
Subjective Date of Service: 04/16/19 Interval History: patient reports "yes " to all questions asked. Does c/o pain to right hip and moans when rolling in bed. Patient alert, no acute distress . No reported fevers overnight Family History: Unchanged from Admission Social History: Unchanged from Admission Past Medical History: Unchanged from Admission Objective Active Medications: Acetaminophen (Tylenol Tab*) 650 mg PO Q6H PRN PRN Reason: FEVER/PAIN Last Admin: 04/16/19 20:20 Dose: 650 mg Aspirin (Aspirin Ec Tab*) 81 mg PO DAILY [facility] Last Admin: 04/16/19 08:16 Dose: 81 mg Atorvastatin Calcium (Lipitor*) 80 mg PO DAILY [facility] Last Admin: 04/16/19 08:16 Dose: 80 mg Baclofen (Lioresal Tab*) 10 mg PO BID [facility] Last Admin: 04/16/19 20:21 Dose: 10 mg Citalopram Hydrobromide (Celexa Tab*) 20 mg PO DAILY [facility] Last Admin: 04/16/19 08:14 Dose: 20 mg Docusate Sodium (Colace Cap*) 100 mg PO BID [facility] Last Admin: 04/16/19 20:21 Dose: 100 mg Enoxaparin Sodium (Lovenox(*)) 40 mg SUBCUT Q24H [facility] Last Admin: 04/15/19 21:07 Dose: 40 mg Gabapentin (Neurontin Cap(*)) 300 mg PO TID [facility] Last Admin: 04/16/19 20:20 Dose: 300 mg Clindamycin HCl/Dextrose (Cleocin 600 Mg/50 Ml(*)) 600 mg in 50 mls @ 100 mls/ hr IV Q8H [facility] Last Admin: 04/16/19 17:35 Dose: 100 mls/hr Sodium Chloride (Ns 0.9% 1000 Ml) 1,000 mls @ 75 mls/hr IV PER RATE [facility] Morphine Sulfate (Morphine Inj (Syringe)*) 4 mg IV Q4H PRN PRN Reason: PAIN - SEVERE Last Admin: 04/16/19 04:19 Dose: 4 mg Oxybutynin Chloride (Ditropan Tab*) 2.5 mg PO BID [facility] Last Admin: 04/16/19 20:20 Dose: 2.5 mg Oxycodone/Acetaminophen (Percocet 5/325 Tab*) 1 tab PO Q8H PRN PRN Reason: PAIN - MODERATE Last Admin: 04/16/19 18:07 Dose: 1 tab Pantoprazole Sodium (Protonix Tab*) 40 mg PO DAILY [facility] Last Admin: 04/16/19 08:15 Dose: 40 mg Potassium Chloride (Klor Con Er Tab*) 20 meq PO ONCE ONE Stop: 04/16/19 21:36 Senna (Senokot 8.6 Mg Tab*) 2 tab PO BEDTIME PRN PRN Reason: CONSTIPATION Last Admin: 04/16/19 20:21 Dose: 2 tab Tamsulosin HCl (Flomax Cap*) 0.4 mg PO DAILY [facility] Last Admin: 04/16/19 08:15 Dose: 0.4 mg Topiramate (Topamax(*)) 100 mg PO BEDTIME [facility] Last Admin: 04/16/19 20:21 Dose: 100 mg Vital Signs - 8 hr 04/16/19 04/16/19 04/16/19 15:15 16:21 18:07 Temperature 98.9 F Pulse Rate 98 Respiratory 16 16 20 Rate Blood Pressure 137/84 (mmHg) O2 Sat by Pulse 94 Oximetry 04/16/19 04/16/19 04/16/19 19:18 19:30 20:20 Temperature 99.4 F Pulse Rate 103 Respiratory 17 18 17 Rate Blood Pressure 135/80 (mmHg) O2 Sat by Pulse 93 Oximetry 04/16/19 20:24 Temperature Pulse Rate Respiratory 18 Rate Blood Pressure (mmHg) O2 Sat by Pulse Oximetry Oxygen Devices in Use Now: None Appearance: alert to verbal, reports yes to all questions Eyes: No Scleral Icterus Ears/Nose/Mouth/Throat: Clear Oropharnyx, Mucous Membranes Moist Neck: NL Appearance and Movements; NL JVP, Trachea Midline Respiratory: Symmetrical Chest Expansion and Respiratory Effort, Clear to Auscultation Cardiovascular: NL Sounds; No Murmurs; No JVD, No Edema Abdominal: NL Sounds; No Tenderness; No Distention Extremities: No Edema, No Clubbing, Cyanosis, - - R AKA - RIght hip tender to palpation - hip/buttock warm to touch. Skin: No Rash or Ulcers Neurological: Alert and Oriented x 3 Result Diagrams: 04/17/19 06:04 04/17/19 06:04 Assess/Plan/Problems-Billing Assessment: - Patient Problems (1) Acute buttock pain Current Visit: No Status: Acute Code(s): M79.1 - MYALGIA * DO NOT USE * SNOMED Code(s): 423461735 Comment: c/o right hip/ buttock pain - CRP 171 - will get MRI - ID consulted - will continue clindamycin (2) History of CVA with residual deficit Current Visit: Yes Status: Acute Code(s): I69.30 - UNSPECIFIED SEQUELAE OF CEREBRAL INFARCTION SNOMED Code(s): 380713828 Comment: patient with expressive aphasia- at baseline - will continue statin and aspirin (3) Seizure disorder Current Visit: No Status: Acute Code(s): G40.909 - EPILEPSY, UNSP, NOT INTRACTABLE, WITHOUT STATUS EPILEPTICUS SNOMED Code(s): 816876720 Comment: cont topamax and Neurontin (4) DVT prophylaxis Current Visit: No Status: Acute Code(s): WNF4874 - SNOMED Code(s): 943841408 Comment: lovenox (5) Full code status Current Visit: Yes Status: Acute Code(s): Z78.9 - OTHER SPECIFIED HEALTH STATUS SNOMED Code(s): 760262734 (6) Hypokalemia Current Visit: Yes Status: Acute Code(s): E87.6 - HYPOKALEMIA SNOMED Code( s): 74426850 Status and Disposition: inpatient
[2019-04-16] MEDS: Enoxaparin(*) 40 MG/0.4 ML SYR SUBCUT SCH (21:47)
[2019-04-16] MEDS ORDERED: Potassium Chloride* LIQUID 20 MEQ/15 ML UDC PO ONE (22:00)
[2019-04-17] MEDS: oxyCODONE/Acetamin 5/325 MG* TAB PO PRN ×3 (01:57→18:15)
[2019-04-17] MEDS: Clindamycin 600 MG/D5W BAG(*) 600 MG/50 ML BAG IV SCH ×3 (01:57→18:15)
[2019-04-17 06:26] LABS: ABS Eosinophils 0.1 10^3/ul (0-0.6); ABS Lymphocytes 1.6 10^3/ul (1.0-4.8); ABS Monocytes 0.6 10^3/ul (0-0.8); ABS Neutrophils 6.6 10^3/ul (1.5-7.7); Eosinophil % 1.6 %; Hematocrit 37 % (42-52); Hemoglobin 12.3 g/dL (14.0-18.0); Lymphocyte % 18.4 %; Mean Corpuscular HGB Conc 33 g/dL (31-36); Mean Corpuscular Hemoglobin 29 pg (27-31); Mean Corpuscular Volume 86 fL (80-94); Platelet Count 286 10^3/uL (150-450); Red Blood Count 4.29 10^6 /uL (4.18-5.48); Red Cell Distribution Width 15 % (10-15)
[2019-04-17 06:44] LABS: Calcium 8.2 mg/dL (8.6-10.3); EGFR African American 103.4 (>60); EGFR Non-African American 85.4 (>60); Magnesium 1.6 mg/dL (1.9-2.7); Potassium 3.4 mmol/L (3.5-5.0)
[2019-04-17] MEDS ORDERED: Magnesium Sulfate 2 GM IV* 2 GM/50 ML BAG IVPB ONE (07:33)
[2019-04-17] MEDS ORDERED: Potassium Chlor TAB* 20 MEQ TAB.ER PO ONE (07:34)
[2019-04-17] MEDS: NS 0.9% 1000 ML** 1,000 ML IV SCH (08:26)
[2019-04-17] MEDS: Aspirin EC TAB* 81 MG TAB.EC PO SCH (08:33)
[2019-04-17] MEDS: Acetaminophen TAB* 325 MG PO PRN ×2 (08:33→20:32)
[2019-04-17] MEDS: Pantoprazole TAB * 40 MG TAB PO SCH (08:36)
[2019-04-17] MEDS: Gabapentin CAP(*) 300 MG PO SCH ×3 (08:36→20:31)
[2019-04-17] MEDS: Atorvastatin* 80 MG TAB PO SCH (08:36)
[2019-04-17] MEDS: Oxybutynin TAB* 5 MG PO SCH ×2 (08:37→20:31)
[2019-04-17] MEDS: Docusate CAP* 100 MG PO SCH ×2 (08:37→20:31)
[2019-04-17] MEDS: Tamsulosin CAP* 0.4 MG PO SCH (08:37)
[2019-04-17] MEDS: Citalopram TAB* 20 MG PO SCH (08:37)
[2019-04-17] MEDS: Baclofen TAB* 10 MG PO SCH ×2 (08:37→20:32)
--- NOTE | 2019-04-17 10:59 | PN ---
Progress Note - Progress Note Date of Service: 04/17/19 SOAP: Subjective: CC: Right hip pain HPI: Mr. Cali is a 53 yo male with PMH significant for CVA, PVD s/p right AKA , PE s/p IVC filter, migraines, seizure disorder, HTN, HLD, GERD, glaucoma, and hx right ischial osteomyelitits. Denies fever, chills, nausea, vomiting, or diarrhea. Reports that the right hip pain yesterday has resolved today. Objective: Vital Signs 04/17/19 04/17/19 04/17/19 03:41 04:19 07:48 Temperature 99.3 F 99.1 F Pulse Rate 95 98 Respiratory 16 16 20 Rate Blood Pressure 99/52 124/66 (mmHg) O2 Sat by Pulse 94 96 Oximetry Physical Exam: General: NAD sitting up in bed Neurological: Alert and Oriented HEENT: Moist MM Cardiovascular: Heart rate regular Respiratory: Lung sounds clear Abdominal: Bowel sounds present, ABD large, soft, non tender MSK: Negative log roll on the right, no tenderness with palpation of the right hip and thigh Skin: No rash Laboratory Results - last 24 hr 04/16/19 04/16/19 04/17/19 06:45 16:16 06:04 WBC 9.0 RBC 4.29 Hgb 12.3 L Hct 37 L MCV 86 MCH 29 MCHC 33 RDW 15 Plt Count 286 MPV 8.0 Neut % (Auto) 73.5 Lymph % (Auto) 18.4 Love % (Auto) 6.2 Eos % (Auto) 1.6 Baso % (Auto) 0.3 Absolute Neuts (auto) 6.6 Absolute Lymphs (auto) 1.6 Absolute Monos (auto) 0.6 Absolute Eos (auto) 0.1 Absolute Basos (auto) 0.0 Absolute Nucleated RBC 0.0 Nucleated RBC % 0.0 Sodium 135 Potassium 3.5 Chloride 103 Carbon Dioxide 24 Anion Gap 8 BUN 11 Creatinine 0.98 Est GFR ( Amer) 96.1 Est GFR (Non-Af Amer) 79.4 BUN/Creatinine Ratio 11.2 Glucose 135 H Calcium 8.5 L Magnesium C-Reactive Protein 171.08 H Urine Color Yellow Urine Appearance Clear Urine pH 7.0 Ur Specific [place] 1.018 Urine Protein 1+(30 mg/dl) A Urine Ketones Negative Urine Blood Negative Urine Nitrate Negative Urine Bilirubin Negative Urine Urobilinogen Negative Ur Leukocyte Esterase Negative Urine WBC (Auto) Trace(0-5/hpf) Urine RBC (Auto) Trace(0-2/hpf) Ur Squamous Epith Cells Present A Urine Bacteria Absent Urine Glucose Negative 04/17/19 Sodium 135 Potassium 3.4 L Chloride 107 Carbon Dioxide 21 L Anion Gap 7 BUN 11 Creatinine 0.92 Est GFR ( Amer) 103.4 Est GFR (Non-Af Amer) 85.4 BUN/Creatinine Ratio 12.0 Glucose 124 H Calcium 8.2 L Magnesium 1.6 L Assessment: 1. Right hip pain, suspected chronic osteomyelitis. Pt with history of osteomyelitis and sinus tract. ABD/pelvis CT with sinus tract inferior right gluteal skin surface to the right ischial tuberosity, no fluid collection or osteomyelitis. This is similar to the collection previously seen in 2018. Full ROM of the right hip, no pain with palpation. Afebrile and no leukocytosis. CRP elevated. MRI pending today. 2. History CVA with aphasia. 3. Obesity. BMI ~33.4 4. PCN, carbapenems, and cephalosporins allergy. Plan: Continue Clindamycin.
[2019-04-17] MEDS ORDERED: oxyCODONE/Acetamin 5/325 MG* TAB PO ONE (13:00)
--- NOTE | 2019-04-17 17:25 | PN ---
Subjective Date of Service: 04/17/19 Interval History: Patient crying in the bed, c/o right hip and buttock pain with palpated and repositioned in the bed. Mother is at the bedside reports that though the patient is aphasic - he is independent at home, is able to transfer to his wheelchair by himself at baseline. is able shower. Reports that he started c/o pain on Tuesday that has progressively gotten worse. Patient answers yes to all questions asked. Family History: Unchanged from Admission Social History: Unchanged from Admission Past Medical History: Unchanged from Admission Objective Active Medications: Acetaminophen (Tylenol Tab*) 650 mg PO Q6H PRN PRN Reason: FEVER/PAIN Last Admin: 04/17/19 08:33 Dose: 650 mg Aspirin (Aspirin Ec Tab*) 81 mg PO DAILY [facility] Last Admin: 04/17/19 08:33 Dose: 81 mg Atorvastatin Calcium (Lipitor*) 80 mg PO DAILY [facility] Last Admin: 04/17/19 08:36 Dose: 80 mg Baclofen (Lioresal Tab*) 10 mg PO BID [facility] Last Admin: 04/17/19 08:37 Dose: 10 mg Citalopram Hydrobromide (Celexa Tab*) 20 mg PO DAILY [facility] Last Admin: 04/17/19 08:37 Dose: 20 mg Docusate Sodium (Colace Cap*) 100 mg PO BID [facility] Last Admin: 04/17/19 08:37 Dose: 100 mg Enoxaparin Sodium (Lovenox(*)) 40 mg SUBCUT Q24H [facility] Last Admin: 04/16/19 21:47 Dose: 40 mg Gabapentin (Neurontin Cap(*)) 300 mg PO TID [facility] Last Admin: 04/17/19 13:11 Dose: 300 mg Clindamycin HCl/Dextrose (Cleocin 600 Mg/50 Ml(*)) 600 mg in 50 mls @ 100 mls/ hr IV Q8H [facility] Last Admin: 04/17/19 11:00 Dose: 100 mls/hr Sodium Chloride (Ns 0.9% 1000 Ml) 1,000 mls @ 75 mls/hr IV PER RATE [facility] Last Admin: 04/17/19 08:26 Dose: 75 mls/hr Morphine Sulfate (Morphine Inj (Syringe)*) 4 mg IV Q4H PRN PRN Reason: PAIN - SEVERE Last Admin: 04/16/19 04:19 Dose: 4 mg Oxybutynin Chloride (Ditropan Tab*) 2.5 mg PO BID [facility] Last Admin: 04/17/19 08:37 Dose: 2.5 mg Oxycodone/Acetaminophen (Percocet 5/325 Tab*) 1 tab PO Q8H PRN PRN Reason: PAIN - MODERATE Last Admin: 04/17/19 10:55 Dose: 1 tab Pantoprazole Sodium (Protonix Tab*) 40 mg PO DAILY [facility] Last Admin: 04/17/19 08:36 Dose: 40 mg Senna (Senokot 8.6 Mg Tab*) 2 tab PO BEDTIME PRN PRN Reason: CONSTIPATION Last Admin: 04/16/19 20:21 Dose: 2 tab Tamsulosin HCl (Flomax Cap*) 0.4 mg PO DAILY [facility] Last Admin: 04/17/19 08:37 Dose: 0.4 mg Topiramate (Topamax(*)) 100 mg PO BEDTIME [facility] Last Admin: 04/16/19 20:21 Dose: 100 mg Vital Signs - 8 hr 04/17/19 04/17/19 04/17/19 10:55 11:18 12:55 Temperature 99.5 F Pulse Rate 62 Respiratory 20 20 18 Rate Blood Pressure 110/63 (mmHg) O2 Sat by Pulse 100 Oximetry 04/17/19 04/17/19 04/17/19 13:11 13:12 15:12 Temperature 97.5 F Pulse Rate 109 Respiratory 18 18 18 Rate Blood Pressure 127/82 (mmHg) O2 Sat by Pulse 95 Oximetry Oxygen Devices in Use Now: None Appearance: alert, resting in bed ,appears to have moderate pain . Eyes: No Scleral Icterus Ears/Nose/Mouth/Throat: Clear Oropharnyx, Mucous Membranes Moist Neck: NL Appearance and Movements; NL JVP, Trachea Midline Respiratory: Symmetrical Chest Expansion and Respiratory Effort, Clear to Auscultation Cardiovascular: NL Sounds; No Murmurs; No JVD, No Edema Abdominal: NL Sounds; No Tenderness; No Distention Extremities: No Edema, No Clubbing, Cyanosis, - - moans with palpation to right hip Skin: No Rash or Ulcers Neurological: Alert and Oriented x 3 Nutrition: Taking PO's Result Diagrams: 04/17/19 06:04 04/17/19 06:04 Microbiology and Other Data: Microbiology 04/16/19 15:32 Aerobic Blood Culture - Preliminary Blood Venous No Growth Day 1 Anaerobic Blood Culture - Preliminary No Growth Day 1 04/16/19 15:30 Aerobic Blood Culture - Preliminary Blood Venous No Growth Day 1 Anaerobic Blood Culture - Preliminary No Growth Day 1 Assess/Plan/Problems-Billing Assessment: - Patient Problems (1) Acute buttock pain Current Visit: No Status: Acute Code(s): M79.1 - MYALGIA * DO NOT USE * SNOMED Code(s): 801686376 Comment: c/o right hip/ buttock pain - CRP 171 yesterday - MRI pending - ID consulted - will continue clindamycin (2) History of CVA with residual deficit Current Visit: Yes Status: Acute Code(s): I69.30 - UNSPECIFIED SEQUELAE OF CEREBRAL INFARCTION SNOMED Code(s): 236796800 Comment: patient with expressive aphasia- at baseline - will continue statin and aspirin (3) Seizure disorder Current Visit: No Status: Acute Code(s): G40.909 - EPILEPSY, UNSP, NOT INTRACTABLE, WITHOUT STATUS EPILEPTICUS SNOMED Code(s): 173444223 Comment: cont topamax and Neurontin (4) Hypokalemia Current Visit: Yes Status: Acute Code(s): E87.6 - HYPOKALEMIA SNOMED Code( s): 78909863 Comment: k+ 3.4 today - will replace and repeat BMP in the AM (5) Hypomagnesemia Current Visit: Yes Status: Acute Code(s): E83.42 - HYPOMAGNESEMIA SNOMED Code(s): 628426174 Comment: magnesium 1.6 today - replaced will repeat in the AM (6) DVT prophylaxis Current Visit: No Status: Acute Code(s): CIG0144 - SNOMED Code(s): 739036886 Comment: lovenox (7) Full code status Current Visit: Yes Status: Acute Code(s): Z78.9 - OTHER SPECIFIED HEALTH STATUS SNOMED Code(s): 315361970 Status and Disposition: inpatient
[2019-04-17] MEDS: Topiramate TAB(*) 100 MG PO SCH (20:31)
[2019-04-17] MEDS: Senna TAB 8.6 mg* TAB PO PRN (20:32)
[2019-04-17] MEDS: Enoxaparin(*) 40 MG/0.4 ML SYR SUBCUT SCH (21:53)
[2019-04-18] MEDS: oxyCODONE/Acetamin 5/325 MG* TAB PO PRN ×3 (00:32→12:16)
[2019-04-18] MEDS: Acetaminophen TAB* 325 MG PO PRN (01:30)
[2019-04-18] MEDS: Clindamycin 600 MG/D5W BAG(*) 600 MG/50 ML BAG IV SCH ×3 (02:06→17:22)
[2019-04-18 07:26] LABS: Calcium 8.2 mg/dL (8.6-10.3); EGFR African American 116.4 (>60); EGFR Non-African American 96.2 (>60); Magnesium 1.8 mg/dL (1.9-2.7); Potassium 3.5 mmol/L (3.5-5.0)
[2019-04-18] MEDS ORDERED: Potassium Chlor TAB* 20 MEQ TAB.ER PO ONE (08:03)
--- NOTE | 2019-04-18 08:20 | PN ---
Subjective Date of Service: 04/18/19 Interval History: Patient reports pain all over. C/o pain to abd worse with palpation. C/o pain to right hip area intermittently. Denies chest pain or shortness of breath. Denies n/v/d. Nods no to back pain. Family History: Unchanged from Admission Social History: Unchanged from Admission Past Medical History: Unchanged from Admission Objective Active Medications: Acetaminophen (Tylenol Tab*) 650 mg PO Q6H PRN PRN Reason: FEVER/PAIN Last Admin: 04/18/19 01:30 Dose: 650 mg Aspirin (Aspirin Ec Tab*) 81 mg PO DAILY [facility] Last Admin: 04/17/19 08:33 Dose: 81 mg Atorvastatin Calcium (Lipitor*) 80 mg PO DAILY [facility] Last Admin: 04/17/19 08:36 Dose: 80 mg Baclofen (Lioresal Tab*) 10 mg PO BID [facility] Last Admin: 04/17/19 20:32 Dose: 10 mg Citalopram Hydrobromide (Celexa Tab*) 20 mg PO DAILY [facility] Last Admin: 04/17/19 08:37 Dose: 20 mg Docusate Sodium (Colace Cap*) 100 mg PO BID [facility] Last Admin: 04/17/19 20:31 Dose: 100 mg Enoxaparin Sodium (Lovenox(*)) 40 mg SUBCUT Q24H [facility] Last Admin: 04/17/19 21:53 Dose: 40 mg Gabapentin (Neurontin Cap(*)) 300 mg PO TID [facility] Last Admin: 04/17/19 20:31 Dose: 300 mg Clindamycin HCl/Dextrose (Cleocin 600 Mg/50 Ml(*)) 600 mg in 50 mls @ 100 mls/ hr IV Q8H [facility] Last Admin: 04/18/19 02:06 Dose: 100 mls/hr Morphine Sulfate (Morphine Inj (Syringe)*) 4 mg IV Q4H PRN PRN Reason: PAIN - SEVERE Last Admin: 04/16/19 04:19 Dose: 4 mg Oxybutynin Chloride (Ditropan Tab*) 2.5 mg PO BID [facility] Last Admin: 04/17/19 20:31 Dose: 2.5 mg Oxycodone/Acetaminophen (Percocet 5/325 Tab*) 1 tab PO Q4H PRN PRN Reason: PAIN - MODERATE Last Admin: 04/18/19 00:32 Dose: 1 tab Pantoprazole Sodium (Protonix Tab*) 40 mg PO DAILY [facility] Last Admin: 04/17/19 08:36 Dose: 40 mg Potassium Chloride (Klor Con Er Tab*) 20 meq PO ONCE ONE Stop: 04/18/19 08:04 Senna (Senokot 8.6 Mg Tab*) 2 tab PO BEDTIME PRN PRN Reason: CONSTIPATION Last Admin: 04/17/19 20:32 Dose: 2 tab Tamsulosin HCl (Flomax Cap*) 0.4 mg PO DAILY [facility] Last Admin: 04/17/19 08:37 Dose: 0.4 mg Topiramate (Topamax(*)) 100 mg PO BEDTIME [facility] Last Admin: 04/17/19 20:31 Dose: 100 mg Vital Signs - 8 hr 04/18/19 04/18/19 04/18/19 00:32 02:30 03:14 Temperature 97.7 F Pulse Rate 89 Respiratory 18 18 19 Rate Blood Pressure 121/70 (mmHg) O2 Sat by Pulse 92 Oximetry Oxygen Devices in Use Now: None Appearance: alert to verbal, responding to questions, expressive aphasia at baseline Eyes: No Scleral Icterus Ears/Nose/Mouth/Throat: Clear Oropharnyx, Mucous Membranes Moist Neck: NL Appearance and Movements; NL JVP Respiratory: Symmetrical Chest Expansion and Respiratory Effort, - - occasional exp wheeze, no rales or rhonchi Cardiovascular: NL Sounds; No Murmurs; No JVD, No Edema Abdominal: - - soft , distended , BS active x 4, generalized tenderness Extremities: No Edema, No Clubbing, Cyanosis, - Skin: No Rash or Ulcers Neurological: Alert and Oriented x 3 Nutrition: Taking PO's Result Diagrams: 04/17/19 06:04 04/18/19 06:50 Microbiology and Other Data: Microbiology 04/16/19 15:32 Aerobic Blood Culture - Preliminary Blood Venous No Growth Day 1 Anaerobic Blood Culture - Preliminary No Growth Day 1 04/16/19 15:30 Aerobic Blood Culture - Preliminary Blood Venous No Growth Day 1 Anaerobic Blood Culture - Preliminary No Growth Day 1 Assess/Plan/Problems-Billing Assessment: - Patient Problems (1) Acute buttock pain Current Visit: No Status: Acute Code(s): M79.1 - MYALGIA * DO NOT USE * SNOMED Code(s): 361316520 Comment: c/o right hip/ buttock pain - CRP 171 yesterday - MRI - no osteo, minimal joint effusion - ID consulted - recommended MRI and clindamycin - will continue clindamycin (2) Abdominal pain Current Visit: No Status: Acute Code(s): R10.9 - UNSPECIFIED ABDOMINAL PAIN SNOMED Code(s): 89327090 Comment: suspect constipation - abd x ray obtained - showed large amt of stool in the colon. - given enema, and laxatives - will continue to monitor (3) History of CVA with residual deficit Current Visit: Yes Status: Acute Code(s): I69.30 - UNSPECIFIED SEQUELAE OF CEREBRAL INFARCTION SNOMED Code(s): 664062844 Comment: patient with expressive aphasia- at baseline - will continue statin and aspirin (4) Seizure disorder Current Visit: No Status: Acute Code(s): G40.909 - EPILEPSY, UNSP, NOT INTRACTABLE, WITHOUT STATUS EPILEPTICUS SNOMED Code(s): 916694436 Comment: cont topamax and Neurontin (5) Hypokalemia Current Visit: Yes Status: Acute Code(s): E87.6 - HYPOKALEMIA SNOMED Code( s): 67302597 Comment: k+ 3.5 today (6) Hypomagnesemia Current Visit: Yes Status: Acute Code(s): E83.42 - HYPOMAGNESEMIA SNOMED Code(s): 712705973 Comment: magnesium 1.8 today (7) DVT prophylaxis Current Visit: No Status: Acute Code(s): AIN4441 - SNOMED Code(s): 907845888 Comment: cameron (8) Full code status Current Visit: Yes Status: Acute Code(s): Z78.9 - OTHER SPECIFIED HEALTH STATUS SNOMED Code(s): 118423289 Status and Disposition: inpatient - likely discharge home tomorrow
[2019-04-18] MEDS: Oxybutynin TAB* 5 MG PO SCH ×2 (08:27→20:43)
[2019-04-18] MEDS: Gabapentin CAP(*) 300 MG PO SCH ×3 (08:27→20:41)
[2019-04-18] MEDS: Atorvastatin* 80 MG TAB PO SCH (08:27)
[2019-04-18] MEDS: Tamsulosin CAP* 0.4 MG PO SCH (08:28)
[2019-04-18] MEDS: Citalopram TAB* 20 MG PO SCH (08:28)
[2019-04-18] MEDS: Pantoprazole TAB * 40 MG TAB PO SCH (08:28)
[2019-04-18] MEDS: Aspirin EC TAB* 81 MG TAB.EC PO SCH (08:28)
[2019-04-18] MEDS: Baclofen TAB* 10 MG PO SCH ×2 (08:28→20:43)
[2019-04-18] MEDS: Docusate CAP* 100 MG PO SCH ×2 (08:28→20:42)
--- NOTE | 2019-04-18 09:06 | PN ---
Progress Note - Progress Note Date of Service: 04/18/19 SOAP: Subjective: CC: Right hip pain HPI: Mr. Cali is a 53 yo male with PMH significant for CVA, PVD s/p right AKA , PE s/p IVC filter, migraines, seizure disorder, HTN, HLD, GERD, glaucoma, and hx right ischial osteomyelitits. Limited ROS due to aphasia. Denies fever or chills. Reporting ABD pain today and pointing to the left side of his ABD. Reporting low back pain and bilateral hip pain. Difficult to determine the source of the pain as he is reporting multiple areas, and not the same area twice with the exception of his ABD. No documented BM since being in the hospital. Objective: Vital Signs - 8 hr 04/18/19 04/18/19 04/18/19 02:30 03:14 07:15 Temperature 97.7 F 98.2 F Pulse Rate 89 82 Respiratory 18 19 18 Rate Blood Pressure 121/70 124/65 (mmHg) O2 Sat by Pulse 92 96 Oximetry Physical Exam: General: NAD sitting up in bed Neurological: Alert and Oriented HEENT: Moist MM Cardiovascular: Heart rate regular Respiratory: Lung sounds clear. Expiratory wheezing noted Abdominal: Bowel sounds present, ABD distended, slightly firm, non tender MSK: Negative log roll on the right, intermittent tenderness with palpation of the right hip and thigh. No tenderness with palpation of the back Skin: No rash. No open areas or wounds Laboratory Results - last 24 hr 04/18/19 06:50 Sodium 133 L Potassium 3.5 Chloride 107 Carbon Dioxide 20 L Anion Gap 6 BUN 10 Creatinine 0.83 Est GFR ( Amer) 116.4 Est GFR (Non-Af Amer) 96.2 BUN/Creatinine Ratio 12.0 Glucose 135 H Calcium 8.2 L Magnesium 1.8 L Microbiology 04/16/19 15:32 Aerobic Blood Culture - Preliminary Blood Venous No Growth Day 1 Anaerobic Blood Culture - Preliminary No Growth Day 1 04/16/19 15:30 Aerobic Blood Culture - Preliminary Blood Venous No Growth Day 1 Anaerobic Blood Culture - Preliminary No Growth Day 1 Assessment: 1. Right hip pain, suspected chronic osteomyelitis. Pt with history of osteomyelitis and sinus tract. ABD/pelvis CT with sinus tract inferior right gluteal skin surface to the right ischial tuberosity, no fluid collection or osteomyelitis. This is similar to the collection previously seen in 2018. Full ROM of the right hip, intermittent pain with palpation and movement. Afebrile and no leukocytosis. CRP elevated. MRI pending today. 2. ABD pain. Reporting ABD pain today. Noted to have a distended ABD, Unknown last BM. 3. History CVA with aphasia. 4. Obesity. BMI ~33.4 5. PCN, carbapenems, and cephalosporins allergy. Plan: Continue Clindamycin. Recommend chest xray and ABD xray today to evaluate for other causes of infection and pain. Discussed with Rivera Schaeffer NP
[2019-04-18] MEDS ORDERED: Polyethylene Glycol 3350* 17 GM PACKET PO PRN (13:00)
[2019-04-18] MEDS: Sodium Phosphate ADULT ENEMA* 118 ml bottle PR PRN (15:20)
[2019-04-18] MEDS ORDERED: Magnesium Oxide TAB* 400 MG PO ONE (15:23)
[2019-04-18] MEDS: Morphine INJ* 4 MG/ML 1 ML SYRINGE (NEW SYRINGE VERSION) IV PRN (20:25)
[2019-04-18] MEDS: Polyethylene Glycol 3350* 17 GM PACKET PO SCH (20:38)
[2019-04-18] MEDS: Senna TAB 8.6 mg* TAB PO PRN (20:42)
[2019-04-18] MEDS: Topiramate TAB(*) 100 MG PO SCH (20:42)
[2019-04-18] MEDS: Magnesium Hydroxide LIQ* 30 ML UDC PO PRN (20:44)
[2019-04-18] MEDS: Enoxaparin(*) 40 MG/0.4 ML SYR SUBCUT SCH (21:52)
[2019-04-19] MEDS: Clindamycin 600 MG/D5W BAG(*) 600 MG/50 ML BAG IV SCH ×3 (02:12→17:03)
[2019-04-19] MEDS: oxyCODONE/Acetamin 5/325 MG* TAB PO PRN ×2 (02:41→19:51)
[2019-04-19] MEDS: Polyethylene Glycol 3350* 17 GM PACKET PO SCH ×3 (08:53→20:22)
[2019-04-19] MEDS: Magnesium Hydroxide LIQ* 30 ML UDC PO PRN (08:53)
[2019-04-19] MEDS: Oxybutynin TAB* 5 MG PO SCH (08:54)
[2019-04-19] MEDS: Gabapentin CAP(*) 300 MG PO SCH ×4 (08:54→20:22)
[2019-04-19] MEDS: Atorvastatin* 80 MG TAB PO SCH (08:54)
[2019-04-19] MEDS: Aspirin EC TAB* 81 MG TAB.EC PO SCH (08:54)
[2019-04-19] MEDS: Tamsulosin CAP* 0.4 MG PO SCH (08:54)
[2019-04-19] MEDS: Baclofen TAB* 10 MG PO SCH ×3 (08:54→20:21)
[2019-04-19] MEDS: Pantoprazole TAB * 40 MG TAB PO SCH (08:54)
[2019-04-19] MEDS: Citalopram TAB* 20 MG PO SCH (08:54)
[2019-04-19] MEDS: Docusate CAP* 100 MG PO SCH ×3 (08:54→20:21)
[2019-04-19] MEDS ORDERED: Methylnaltrexone SQ (NF) 12 MG/0.6 ML VIAL SUBCUT ONE (09:44)
[2019-04-19 10:13] LABS: ABS Lymphocytes 0.6 10^3/ul (1.0-4.8); ABS Monocytes 0.4 10^3/ul (0-0.8); ABS Neutrophils 8.5 10^3/ul (1.5-7.7); Eosinophil % 0.1 %; Hematocrit 44 % (42-52); Hemoglobin 15.1 g/dL (14.0-18.0); Lymphocyte % 6.3 %; Mean Corpuscular HGB Conc 34 g/dL (31-36); Mean Corpuscular Hemoglobin 29 pg (27-31); Mean Corpuscular Volume 87 fL (80-94); Platelet Count 431 10^3/uL (150-450); Red Blood Count 5.12 10^6 /uL (4.18-5.48); Red Cell Distribution Width 15 % (10-15); White Blood Count 9.5 10^3/uL (3.5-10.8)
[2019-04-19 10:34] LABS: BUN/Creatinine Ratio 13.3 (8-20); Calcium 9.3 mg/dL (8.6-10.3); EGFR African American 96.1 (>60); EGFR Non-African American 79.4 (>60)
[2019-04-19] MEDS ORDERED: Morphine INJ* 2 MG/ML 1 ML SYRINGE (TWO MG - NEW SYRINGE VERSION) IV PRN (12:14)
--- NOTE | 2019-04-19 13:48 | PN ---
Subjective Date of Service: 04/19/19 Interval History: Patient today is AM was complaining of generalized pain, worst in his abdomen. Patient still had no BM. Patient denied CP, SOB. Later in the day was called due to patient vomiting dark material twice, after which he stated he felt somewhat better. Family History: Unchanged from Admission Social History: Unchanged from Admission Past Medical History: Unchanged from Admission Objective Active Medications: Acetaminophen (Tylenol Tab*) 650 mg PO Q6H PRN PRN Reason: FEVER/PAIN Last Admin: 04/18/19 01:30 Dose: 650 mg Aspirin (Aspirin Ec Tab*) 81 mg PO DAILY [facility] Last Admin: 04/19/19 08:54 Dose: 81 mg Atorvastatin Calcium (Lipitor*) 80 mg PO DAILY [facility] Last Admin: 04/19/19 08:54 Dose: 80 mg Baclofen (Lioresal Tab*) 10 mg PO BID [facility] Last Admin: 04/19/19 08:54 Dose: 10 mg Citalopram Hydrobromide (Celexa Tab*) 20 mg PO DAILY [facility] Last Admin: 04/19/19 08:54 Dose: 20 mg Docusate Sodium (Colace Cap*) 100 mg PO BID [facility] Last Admin: 04/19/19 08:54 Dose: 100 mg Enoxaparin Sodium (Lovenox(*)) 40 mg SUBCUT Q24H [facility] Last Admin: 04/18/19 21:52 Dose: 40 mg Gabapentin (Neurontin Cap(*)) 300 mg PO TID [facility] Last Admin: 04/19/19 08:54 Dose: 300 mg Clindamycin HCl/Dextrose (Cleocin 600 Mg/50 Ml(*)) 600 mg in 50 mls @ 100 mls/ hr IV Q8H [facility] Last Admin: 04/19/19 08:55 Dose: 100 mls/hr Magnesium Hydroxide (Milk Of Magnesia Liq*) 30 ml PO Q4H PRN PRN Reason: CONSTIPATION Last Admin: 04/19/19 08:53 Dose: 30 ml Morphine Sulfate (Morphine Inj (Syringe))*) 2 mg IV Q4H PRN PRN Reason: PAIN - SEVERE Ondansetron HCl (Zofran Inj*) 4 mg IV Q6H PRN PRN Reason: NAUSEA Oxycodone/Acetaminophen (Percocet 5/325 Tab*) 1 tab PO Q4H PRN PRN Reason: PAIN - MODERATE Last Admin: 04/19/19 02:41 Dose: 1 tab Pantoprazole Sodium (Protonix Tab*) 40 mg PO DAILY [facility] Last Admin: 04/19/19 08:54 Dose: 40 mg Polyethylene Glycol/Electrolytes (Miralax (17 Gm Dose Connor)) 17 gm PO BID [facility] Last Admin: 04/19/19 08:53 Dose: 17 gm Senna (Senokot 8.6 Mg Tab*) 2 tab PO BEDTIME PRN PRN Reason: CONSTIPATION Last Admin: 04/18/19 20:42 Dose: 2 tab Sodium Biphosphate/Sodium Phosphate (Fleet Enema*) 1 bottle RI DAILY PRN PRN Reason: CONSTIPATION Last Admin: 04/18/19 15:20 Dose: 1 bottle Tamsulosin HCl (Flomax Cap*) 0.4 mg PO DAILY [facility] Last Admin: 04/19/19 08:54 Dose: 0.4 mg Topiramate (Topamax(*)) 100 mg PO BEDTIME [facility] Last Admin: 04/18/19 20:42 Dose: 100 mg Vital Signs - 8 hr 04/19/19 04/19/19 04/19/19 07:15 08:00 08:54 Temperature 98.5 F Pulse Rate 78 Respiratory 20 18 18 Rate Blood Pressure 131/62 (mmHg) O2 Sat by Pulse 95 Oximetry 04/19/19 12:00 Temperature Pulse Rate Respiratory 8 Rate Blood Pressure (mmHg) O2 Sat by Pulse Oximetry Oxygen Devices in Use Now: None Appearance: Patient is a 53yo male who appears stated age and is sitting in the bed, moving frequently in pain. Eyes: No Scleral Icterus, PERRLA Ears/Nose/Mouth/Throat: NL Teeth, Lips, Gums, Clear Oropharnyx, Mucous Membranes Moist Neck: NL Appearance and Movements; NL JVP, Trachea Midline Respiratory: Symmetrical Chest Expansion and Respiratory Effort, Clear to Auscultation Cardiovascular: NL Sounds; No Murmurs; No JVD, RRR, No Edema Abdominal: - - Disteneded, Hypoactive bowel sounds. Lymphatic: No Cervical Adenopathy Extremities: No Edema, No Clubbing, Cyanosis Skin: No Rash or Ulcers, No Nodules or Sclerosis Neurological: - - Answers only in "Yes" and "No", Dense Right sided hemiparesis. Result Diagrams: 04/19/19 10:07 04/19/19 10:07 Microbiology and Other Data: Microbiology 04/16/19 15:32 Aerobic Blood Culture - Preliminary Blood Venous No Growth Day 1 Anaerobic Blood Culture - Preliminary No Growth Day 1 04/16/19 15:30 Aerobic Blood Culture - Preliminary Blood Venous No Growth Day 1 Anaerobic Blood Culture - Preliminary No Growth Day 1 Assess/Plan/Problems-Billing Assessment: Patient is a 53yo male with a PMH for CVA, Aphasia, and right sided hemiparesis , as well as history of infected sinus tract here with hip pain and concern for recurrent infection, but no source is obvious at this time and patient appears to have a bowel obstruction. - Patient Problems (1) Bowel obstruction Current Visit: Yes Status: Acute Code(s): K56.609 - UNSP INTESTNL OBST, UNSP TO PARTIAL VERSUS COMPLETE OBST SNOMED Code(s): 75452114 Comment: - Clinically diagnosed with no BM and uncontrollable vomiting - Possibly due to opiates, constipation, or mechanical obstruction - CT A/P pending. - NG tube placed for vomiting - NPO (2) Abdominal pain Current Visit: No Status: Acute Code(s): R10.9 - UNSPECIFIED ABDOMINAL PAIN SNOMED Code(s): 63032720 Comment: - Suspect constipation, Not responsive to Laxatives or Enema - Repeat CT A/P pending. (3) Acute buttock pain Current Visit: No Status: Acute Code(s): M79.1 - MYALGIA * DO NOT USE * SNOMED Code(s): 481738785 Comment: - Complains of right buttock pain, no rash - No signs of osteo or joint infection - Trend CRP and continue Clinda, may change to Oral per ID when able to tolerate PO. (4) History of CVA with residual deficit Current Visit: Yes Status: Acute Code(s): I69.30 - UNSPECIFIED SEQUELAE OF CEREBRAL INFARCTION SNOMED Code(s): 586358381 Comment: - Expressive Aphasia and right sided weakenss - Unchanged, continue aspirin and statin. (5) Hypokalemia Current Visit: Yes Status: Acute Code(s): E87.6 - HYPOKALEMIA SNOMED Code( s): 46846406 Comment: - Replace PRN with Mag (6) Hypomagnesemia Current Visit: Yes Status: Acute Code(s): E83.42 - HYPOMAGNESEMIA SNOMED Code(s): 576622999 Comment: - Replace PRN (7) Seizure disorder Current Visit: No Status: Acute Code(s): G40.909 - EPILEPSY, UNSP, NOT INTRACTABLE, WITHOUT STATUS EPILEPTICUS SNOMED Code(s): 817394191 Comment: - Cont topamax and Neurontin (8) DVT prophylaxis Current Visit: No Status: Acute Code(s): UTE6854 - SNOMED Code(s): 909026609 Comment: - Lovenox SubQ (9) Full code status Current Visit: Yes Status: Acute Code(s): Z78.9 - OTHER SPECIFIED HEALTH STATUS SNOMED Code(s): 600136566 Status and Disposition: inpatient DC home when medically stable.
[2019-04-19] MEDS: NS 0.9% 1000 ML** 1,000 ML IV SCH (14:06)
--- NOTE | 2019-04-19 15:07 | PN ---
Progress Note - Progress Note Date of Service: 04/19/19 SOAP: Subjective: CC: ABD pain HPI: Mr. Cali is a 53 yo male with PMH significant for CVA, PVD s/p right AKA , PE s/p IVC filter, migraines, seizure disorder, HTN, HLD, GERD, glaucoma, and hx right ischial osteomyelitits. Limited ROS due to aphasia. Denies fever, chills, right hip pain. Continues to have ABD pain, but improving since NG tube was placed. With nausea and vomiting prior to NG tube placement, has not had a BM since prior to admission. Objective: Vital Signs 04/19/19 04/19/19 12:00 12:18 Temperature 98.0 F Pulse Rate 115 Respiratory 18 24 Rate Blood Pressure 128/76 (mmHg) O2 Sat by Pulse 96 Oximetry Physical Exam: General: NAD, laying up in bed Neurological: Alert and Oriented HEENT: Moist MM Cardiovascular: Heart rate regular Respiratory: Lung sounds clear, diminished Abdominal: Bowel sounds hypoactive, ABD distended, soft, non tender MSK: Negative log roll on the right, and no tenderness with palpation. Full ROM of the right hip Skin: No rash. No open areas or wounds Laboratory Results - last 24 hr 04/19/19 04/19/19 10:07 10:07 WBC 9.5 RBC 5.12 Hgb 15.1 Hct 44 MCV 87 MCH 29 MCHC 34 RDW 15 Plt Count 431 MPV 8.0 Neut % (Auto) 89.0 Lymph % (Auto) 6.3 [place] % (Auto) 4.4 Eos % (Auto) 0.1 Baso % (Auto) 0.2 Absolute Neuts (auto) 8.5 H Absolute Lymphs (auto) 0.6 L Absolute Monos (auto) 0.4 Absolute Eos (auto) 0.0 Absolute Basos (auto) 0.0 Absolute Nucleated RBC 0.0 Nucleated RBC % 0.0 Sodium 134 L Potassium 4.0 Chloride 101 Carbon Dioxide 22 Anion Gap 11 BUN 13 Creatinine 0.98 Est GFR ( Amer) 96.1 Est GFR (Non-Af Amer) 79.4 BUN/Creatinine Ratio 13.3 Glucose 195 H Calcium 9.3 Magnesium 2.0 Microbiology 04/16/19 15:32 Aerobic Blood Culture - Preliminary Blood Venous No Growth Day 2 Anaerobic Blood Culture - Preliminary No Growth Day 2 04/16/19 15:30 Aerobic Blood Culture - Preliminary Blood Venous No Growth Day 2 Anaerobic Blood Culture - Preliminary No Growth Day 2 04/16/19 16:16 Urine Culture - Final Urine No Growth (<1,000 CFU/mL) Assessment: 1. Right hip pain. Pt with history of osteomyelitis and sinus tract. ABD/pelvis CT with sinus tract inferior right gluteal skin surface to the right ischial tuberosity, no fluid collection or osteomyelitis. This is similar to the collection previously seen in 2018. MRI with no signs of osteomyelitis and minimal joint effusion. Full ROM of the right hip, intermittent pain with palpation and movement. Afebrile and no leukocytosis. CRP elevated. 2. ABD pain. Started yesterday, no BM since admission. ABD xray yesterday with gaseous distention of the colon with a large amount of stool throughout the colon. ABD/Pelvis CT today with diffuse distention and mild dilation of the small bowel. S/P NG tube placement. 3. History CVA with aphasia. 4. Obesity. BMI ~33.4 5. PCN, carbapenems, and cephalosporins allergy. Plan: Continue Clindamycin. Will add a CRP to last labs. Discussed with BOBO Marks
[2019-04-19] MEDS: Sodium Phosphate ADULT ENEMA* 118 ml bottle PR PRN (17:03)
[2019-04-19 17:55] LABS: C Reactive Protein 152.92 mg/L (<8.01)
[2019-04-19] MEDS: Topiramate TAB(*) 100 MG PO SCH ×2 (19:51→20:22)
[2019-04-19] MEDS: Morphine INJ* 2 MG/ML 1 ML SYRINGE (TWO MG - NEW SYRINGE VERSION) IV PRN (20:28)
[2019-04-19] MEDS: Enoxaparin(*) 40 MG/0.4 ML SYR SUBCUT SCH (21:04)
[2019-04-19] MEDS: Ondansetron INJ* 2 MG/ML VIAL IV PRN (21:25)
[2019-04-20] MEDS: NS 0.9% 1000 ML** 1,000 ML IV SCH ×2 (00:59→12:46)
[2019-04-20] MEDS: Morphine INJ* 2 MG/ML 1 ML SYRINGE (TWO MG - NEW SYRINGE VERSION) IV PRN ×2 (01:12→05:12)
[2019-04-20] MEDS: Clindamycin 600 MG/D5W BAG(*) 600 MG/50 ML BAG IV SCH ×3 (01:13→17:41)
[2019-04-20] MEDS: Topiramate TAB(*) 100 MG PO SCH ×2 (04:18→21:05)
[2019-04-20] MEDS ORDERED: Methylnaltrexone SQ (NF) 12 MG/0.6 ML VIAL SUBCUT ONE (08:09)
[2019-04-20] MEDS: Aspirin EC TAB* 81 MG TAB.EC PO SCH (09:24)
[2019-04-20] MEDS: Atorvastatin* 80 MG TAB PO SCH (09:24)
[2019-04-20] MEDS: Polyethylene Glycol 3350* 17 GM PACKET PO SCH ×2 (09:25→21:05)
[2019-04-20] MEDS: Tamsulosin CAP* 0.4 MG PO SCH (09:25)
[2019-04-20] MEDS: Baclofen TAB* 10 MG PO SCH ×2 (09:25→21:05)
[2019-04-20] MEDS: Docusate CAP* 100 MG PO SCH (09:25)
[2019-04-20] MEDS: Gabapentin CAP(*) 300 MG PO SCH ×3 (09:25→21:04)
[2019-04-20] MEDS: Citalopram TAB* 20 MG PO SCH (09:25)
[2019-04-20] MEDS: Pantoprazole TAB * 40 MG TAB PO SCH (09:25)
[2019-04-20 09:39] LABS: ABS Lymphocytes 1.2 10^3/ul (1.0-4.8); ABS Monocytes 0.8 10^3/ul (0-0.8); ABS Neutrophils 6.5 10^3/ul (1.5-7.7); Eosinophil % 0.1 %; Hematocrit 36 % (42-52); Hemoglobin 12.4 g/dL (14.0-18.0); Lymphocyte % 14.2 %; Mean Corpuscular HGB Conc 34 g/dL (31-36); Mean Corpuscular Hemoglobin 29 pg (27-31); Mean Corpuscular Volume 85 fL (80-94); Mean Platelet Volume 7.9 fL (7.4-10.4); Platelet Count 346 10^3/uL (150-450); Red Cell Distribution Width 15 % (10-15); White Blood Count 8.6 10^3/uL (3.5-10.8)
[2019-04-20 10:04] LABS: BUN/Creatinine Ratio 23.5 (8-20); Calcium 8.2 mg/dL (8.6-10.3); EGFR African American 96.1 (>60); EGFR Non-African American 79.4 (>60); Magnesium 2.2 mg/dL (1.9-2.7); Potassium 3.6 mmol/L (3.5-5.0)
--- NOTE | 2019-04-20 13:21 | PN ---
Subjective Date of Service: 04/20/19 Interval History: Patient complains of persistent pain in abdomen, but denies N/V this AM. Patient denies being SOB this morning. Patient does not remember presumptive seizure overnight. Patient states he had a BM this AM. Family History: Unchanged from Admission Social History: Unchanged from Admission Past Medical History: Unchanged from Admission Objective Active Medications: Acetaminophen (Tylenol Tab*) 650 mg PO Q6H PRN PRN Reason: FEVER/PAIN Last Admin: 04/18/19 01:30 Dose: 650 mg Aspirin (Aspirin Ec Tab*) 81 mg PO DAILY [facility] Last Admin: 04/20/19 09:24 Dose: Not Given Atorvastatin Calcium (Lipitor*) 80 mg PO DAILY [facility] Last Admin: 04/20/19 09:24 Dose: Not Given Baclofen (Lioresal Tab*) 10 mg PO BID [facility] Last Admin: 04/20/19 09:25 Dose: Not Given Citalopram Hydrobromide (Celexa Tab*) 20 mg PO DAILY [facility] Last Admin: 04/20/19 09:25 Dose: Not Given Docusate Sodium (Colace Cap*) 100 mg PO BID [facility] Last Admin: 04/20/19 09:25 Dose: Not Given Enoxaparin Sodium (Lovenox(*)) 40 mg SUBCUT Q24H [facility] Last Admin: 04/19/19 21:04 Dose: 40 mg Gabapentin (Neurontin Cap(*)) 300 mg PO TID [facility] Last Admin: 04/20/19 09:25 Dose: Not Given Clindamycin HCl/Dextrose (Cleocin 600 Mg/50 Ml(*)) 600 mg in 50 mls @ 100 mls/ hr IV Q8H [facility] Last Admin: 04/20/19 10:37 Dose: 100 mls/hr Sodium Chloride (Ns 0.9% 1000 Ml) 1,000 mls @ 100 mls/hr IV PER RATE [facility] Last Admin: 04/20/19 12:46 Dose: 100 mls/hr Magnesium Hydroxide (Milk Of Magnesia Liq*) 30 ml PO Q4H PRN PRN Reason: CONSTIPATION Last Admin: 04/19/19 08:53 Dose: 30 ml Ondansetron HCl (Zofran Inj*) 4 mg IV Q6H PRN PRN Reason: NAUSEA Last Admin: 02/06/20 21:25 Dose: 4 mg Oxycodone/Acetaminophen (Percocet 5/325 Tab*) 1 tab PO Q4H PRN PRN Reason: PAIN - MODERATE Last Admin: 04/19/19 02:41 Dose: 1 tab Pantoprazole Sodium (Protonix Tab*) 40 mg PO DAILY [facility] Last Admin: 04/20/19 09:25 Dose: Not Given Polyethylene Glycol/Electrolytes (Miralax (17 Gm Dose Connor)) 17 gm PO BID [facility] Last Admin: 04/20/19 09:25 Dose: Not Given Senna (Senokot 8.6 Mg Tab*) 2 tab PO BEDTIME PRN PRN Reason: CONSTIPATION Last Admin: 04/18/19 20:42 Dose: 2 tab Sodium Biphosphate/Sodium Phosphate (Fleet Enema*) 1 bottle [place] DAILY PRN PRN Reason: CONSTIPATION Last Admin: 04/19/19 17:03 Dose: 1 bottle Tamsulosin HCl (Flomax Cap*) 0.4 mg PO DAILY [facility] Last Admin: 04/20/19 09:25 Dose: Not Given Topiramate (Topamax(*)) 100 mg PO BEDTIME [facility] Last Admin: 04/20/19 04:18 Dose: 100 mg Vital Signs - 8 hr 04/20/19 04/20/19 04/20/19 06:12 07:15 08:00 Temperature 97.3 F Pulse Rate 95 Respiratory 18 17 17 Rate Blood Pressure 135/79 (mmHg) O2 Sat by Pulse 91 Oximetry 04/20/19 11:15 Temperature 98.2 F Pulse Rate 91 Respiratory 18 Rate Blood Pressure 118/69 (mmHg) O2 Sat by Pulse 98 Oximetry Oxygen Devices in Use Now: None Appearance: Patient is a 53yo male who appears stated age and is sitting in the bed in [facility]. Eyes: No Scleral Icterus, PERRLA Ears/Nose/Mouth/Throat: NL Teeth, Lips, Gums, Clear Oropharnyx, Mucous Membranes Moist Neck: NL Appearance and Movements; NL JVP, Trachea Midline Respiratory: Symmetrical Chest Expansion and Respiratory Effort, Clear to Auscultation Cardiovascular: NL Sounds; No Murmurs; No JVD, RRR Abdominal: No Hepatosplenomegaly, - - Severely distended with hypoactive bowel sounds. Lymphatic: No Cervical Adenopathy Extremities: No Edema, No Clubbing, Cyanosis Result Diagrams: 04/20/19 09:29 04/20/19 09:29 Microbiology and Other Data: Microbiology 04/16/19 15:32 Aerobic Blood Culture - Preliminary Blood Venous No Growth Day 1 Anaerobic Blood Culture - Preliminary No Growth Day 1 04/16/19 15:30 Aerobic Blood Culture - Preliminary Blood Venous No Growth Day 1 Anaerobic Blood Culture - Preliminary No Growth Day 1 Assess/Plan/Problems-Billing Assessment: Patient is a 53yo male with a PMH for CVA, Aphasia, and right sided hemiparesis , as well as history of infected sinus tract here with hip pain and concern for recurrent infection, but no source is obvious at this time and patient appears to have a bowel obstruction. - Patient Problems (1) Bowel obstruction Current Visit: Yes Status: Acute Code(s): K56.609 - UNSP INTESTNL OBST, UNSP TO PARTIAL VERSUS COMPLETE OBST SNOMED Code(s): 95531519 Comment: - Likely due to ileus, no history of intraabdominal surgery - Likely due to opiates and constipation - NG tube placed for vomiting, output is decreasing, start clamp trial. - NPO - Multiple BMs today. (2) Abdominal pain Current Visit: No Status: Acute Code(s): R10.9 - UNSPECIFIED ABDOMINAL PAIN SNOMED Code(s): 46776952 Comment: - Due to Ileus - Having BMs this AM with improvement in pain. - Ileus likely opiate induced, continue methylnaltrexone and laxatives. (3) Acute buttock pain Current Visit: No Status: Acute Code(s): M79.1 - MYALGIA * DO NOT USE * SNOMED Code(s): 387882999 Comment: - Complains of right buttock pain, no rash - No signs of osteo or joint infection - Trend CRP and continue Clinda, may change to Oral per ID when able to tolerate PO. (4) Hypoxia Current Visit: Yes Status: Acute Code(s): R09.02 - HYPOXEMIA SNOMED Code(s ): 745046019 Comment: - With Bibasilar infiltrates and vomiting, likely aspiration pneumonitis - No indication for antibiotics beyond clindamycin at this time. - Wean O2 as able. (5) History of CVA with residual deficit Current Visit: Yes Status: Acute Code(s): I69.30 - UNSPECIFIED SEQUELAE OF CEREBRAL INFARCTION SNOMED Code(s): 756669419 Comment: - Expressive Aphasia and right sided weakenss - Unchanged, continue aspirin and statin. (6) Hypokalemia Current Visit: Yes Status: Acute Code(s): E87.6 - HYPOKALEMIA SNOMED Code( s): 33016759 Comment: - Replace PRN with Mag (7) Hypomagnesemia Current Visit: Yes Status: Acute Code(s): E83.42 - HYPOMAGNESEMIA SNOMED Code(s): 872809520 Comment: - Replace PRN (8) Seizure disorder Current Visit: No Status: Acute Code(s): G40.909 - EPILEPSY, UNSP, NOT INTRACTABLE, WITHOUT STATUS EPILEPTICUS SNOMED Code(s): 104762655 Comment: - Cont topamax and Neurontin - Possible seizure overnight with missed dose to Topamax, continue regimen through NG tube as tolerated. (9) DVT prophylaxis Current Visit: No Status: Acute Code(s): [id number] - SNOMED Code(s): 070347290 Comment: - Lovenox SubQ (10) Full code status Current Visit: Yes Status: Acute Code(s): Z78.9 - OTHER SPECIFIED HEALTH STATUS SNOMED Code(s): 837513920 Status and Disposition: inpatient DC home when medically stable.
[2019-04-20] MEDS: Ondansetron INJ* 2 MG/ML VIAL IV PRN (16:09)
[2019-04-20] MEDS: oxyCODONE/Acetamin 5/325 MG* TAB PO PRN ×2 (17:44→21:11)
[2019-04-20] MEDS ORDERED: Docusate LIQ* 100 MG/10 ML UDC ONE (20:58)
[2019-04-20] MEDS: Docusate LIQ* 100 MG/10 ML UDC G TUBE SCH (21:06)
[2019-04-20] MEDS: Enoxaparin(*) 40 MG/0.4 ML SYR SUBCUT SCH (21:11)
[2019-04-21] MEDS: NS 0.9% 1000 ML** 1,000 ML IV SCH ×2 (02:41→14:42)
[2019-04-21] MEDS: Clindamycin 600 MG/D5W BAG(*) 600 MG/50 ML BAG IV SCH ×3 (02:42→18:04)
[2019-04-21] MEDS: oxyCODONE/Acetamin 5/325 MG* TAB PO PRN ×4 (04:12→20:55)
[2019-04-21 06:12] LABS: ABS Eosinophils 0.1 10^3/ul (0-0.6); ABS Lymphocytes 1.5 10^3/ul (1.0-4.8); ABS Monocytes 0.6 10^3/ul (0-0.8); ABS Neutrophils 5.9 10^3/ul (1.5-7.7); Eosinophil % 1.2 %; Hematocrit 34 % (42-52); Hemoglobin 11.4 g/dL (14.0-18.0); Lymphocyte % 18.5 %; Mean Corpuscular HGB Conc 34 g/dL (31-36); Mean Corpuscular Hemoglobin 29 pg (27-31); Mean Corpuscular Volume 86 fL (80-94); Mean Platelet Volume 7.8 fL (7.4-10.4); Platelet Count 358 10^3/uL (150-450); Red Blood Count 3.95 10^6 /uL (4.18-5.48); Red Cell Distribution Width 15 % (10-15); White Blood Count 8.2 10^3/uL (3.5-10.8)
[2019-04-21 06:31] LABS: BUN/Creatinine Ratio 27.6 (8-20); Calcium 8.1 mg/dL (8.6-10.3); EGFR African American 110.2 (>60); EGFR Non-African American 91.1 (>60); Magnesium 2.3 mg/dL (1.9-2.7); Potassium 3.7 mmol/L (3.5-5.0)
[2019-04-21 07:34] LABS: C Reactive Protein 197.92 mg/L (<8.01)
[2019-04-21] MEDS ORDERED: Methylnaltrexone SQ (NF) 12 MG/0.6 ML VIAL SUBCUT ONE (07:48)
[2019-04-21] MEDS: Aspirin EC TAB* 81 MG TAB.EC PO SCH (08:03)
[2019-04-21] MEDS: Acetaminophen TAB* 325 MG PO PRN (08:03)
[2019-04-21] MEDS: Atorvastatin* 80 MG TAB PO SCH (08:03)
[2019-04-21] MEDS: Docusate LIQ* 100 MG/10 ML UDC G TUBE SCH ×2 (08:04→20:56)
[2019-04-21] MEDS: Citalopram TAB* 20 MG PO SCH (08:04)
[2019-04-21] MEDS: Pantoprazole TAB * 40 MG TAB PO SCH (08:04)
[2019-04-21] MEDS: Tamsulosin CAP* 0.4 MG PO SCH (08:04)
[2019-04-21] MEDS: Gabapentin CAP(*) 300 MG PO SCH ×3 (08:04→20:55)
[2019-04-21] MEDS: Polyethylene Glycol 3350* 17 GM PACKET PO SCH ×2 (08:04→20:56)
[2019-04-21] MEDS: Baclofen TAB* 10 MG PO SCH ×2 (08:04→20:56)
--- NOTE | 2019-04-21 14:06 | PN ---
Subjective Date of Service: 04/21/19 Interval History: Patient is feeling better today. Patient complains of pain in his abdomen, but subjectively appears better today. Patient denies CP, SOB, dysuria, or other pain. Family History: Unchanged from Admission Social History: Unchanged from Admission Past Medical History: Unchanged from Admission Objective Active Medications: Acetaminophen (Tylenol Tab*) 650 mg PO Q6H PRN PRN Reason: FEVER/PAIN Last Admin: 04/21/19 08:03 Dose: 650 mg Aspirin (Aspirin Ec Tab*) 81 mg PO DAILY [facility] Last Admin: 04/21/19 08:03 Dose: 81 mg Atorvastatin Calcium (Lipitor*) 80 mg PO DAILY [facility] Last Admin: 04/21/19 08:03 Dose: 80 mg Baclofen (Lioresal Tab*) 10 mg PO BID [facility] Last Admin: 04/21/19 08:04 Dose: 10 mg Citalopram Hydrobromide (Celexa Tab*) 20 mg PO DAILY [facility] Last Admin: 04/21/19 08:04 Dose: 20 mg Docusate Sodium (Colace Liq*) 100 mg G TUBE BID [facility] Last Admin: 04/21/19 08:04 Dose: 100 mg Enoxaparin Sodium (Lovenox(*)) 40 mg SUBCUT Q24H [facility] Last Admin: 04/20/19 21:11 Dose: 40 mg Gabapentin (Neurontin Cap(*)) 300 mg PO TID [facility] Last Admin: 04/21/19 08:04 Dose: 300 mg Clindamycin HCl/Dextrose (Cleocin 600 Mg/50 Ml(*)) 600 mg in 50 mls @ 100 mls/ hr IV Q8H [facility] Last Admin: 04/21/19 10:55 Dose: 100 mls/hr Sodium Chloride (Ns 0.9% 1000 Ml) 1,000 mls @ 100 mls/hr IV PER RATE [facility] Last Admin: 04/21/19 02:41 Dose: 100 mls/hr Magnesium Hydroxide (Milk Of Magnesia Liq*) 30 ml PO Q4H PRN PRN Reason: CONSTIPATION Last Admin: 04/19/19 08:53 Dose: 30 ml Ondansetron HCl (Zofran Inj*) 4 mg IV Q6H PRN PRN Reason: NAUSEA Last Admin: 04/20/19 16:09 Dose: 4 mg Oxycodone/Acetaminophen (Percocet 5/325 Tab*) 1 tab PO Q4H PRN PRN Reason: PAIN - MODERATE Last Admin: 04/21/19 08:04 Dose: 1 tab Pantoprazole Sodium (Protonix Tab*) 40 mg PO DAILY [facility] Last Admin: 04/21/19 08:04 Dose: 40 mg Polyethylene Glycol/Electrolytes (Miralax (17 Gm Dose Connor)) 17 gm PO BID [facility] Last Admin: 04/21/19 08:04 Dose: 17 gm Senna (Senokot 8.6 Mg Tab*) 2 tab PO BEDTIME PRN PRN Reason: CONSTIPATION Last Admin: 04/18/19 20:42 Dose: 2 tab Sodium Biphosphate/Sodium Phosphate (Fleet Enema*) 1 bottle [place] DAILY PRN PRN Reason: CONSTIPATION Last Admin: 04/19/19 17:03 Dose: 1 bottle Tamsulosin HCl (Flomax Cap*) 0.4 mg PO DAILY [facility] Last Admin: 04/21/19 08:04 Dose: 0.4 mg Topiramate (Topamax(*)) 100 mg PO BEDTIME [facility] Last Admin: 04/20/19 21:05 Dose: 100 mg Vital Signs - 8 hr 04/21/19 04/21/19 06:12 08:04 Respiratory 20 22 Rate Oxygen Devices in Use Now: None Appearance: Patient is a 53yo male who appears stated age and is sitting in the bed in [facility]. Eyes: No Scleral Icterus, PERRLA Ears/Nose/Mouth/Throat: NL Teeth, Lips, Gums, Clear Oropharnyx, Mucous Membranes Moist Neck: NL Appearance and Movements; NL JVP, Trachea Midline Respiratory: Symmetrical Chest Expansion and Respiratory Effort, Clear to Auscultation Cardiovascular: NL Sounds; No Murmurs; No JVD, RRR, No Edema Abdominal: - - Distended, hyperactive high pitched bowel sounds, non-tender. Extremities: No Edema, - - RLE surgically absent. Skin: No Rash or Ulcers Neurological: - - Right hemiparesis, aphasia. Result Diagrams: 04/21/19 05:48 04/21/19 05:48 Microbiology and Other Data: Microbiology 04/16/19 15:32 Aerobic Blood Culture - Preliminary Blood Venous No Growth Day 1 Anaerobic Blood Culture - Preliminary No Growth Day 1 04/16/19 15:30 Aerobic Blood Culture - Preliminary Blood Venous No Growth Day 1 Anaerobic Blood Culture - Preliminary No Growth Day 1 Assess/Plan/Problems-Billing Assessment: Patient is a 53yo male with a PMH for CVA, Aphasia, and right sided hemiparesis , as well as history of infected sinus tract here with hip pain and concern for recurrent infection, but no source is obvious at this time and patient appears to have a bowel obstruction. - Patient Problems (1) Bowel obstruction Current Visit: Yes Status: Acute Code(s): K56.609 - UNSP INTESTNL OBST, UNSP TO PARTIAL VERSUS COMPLETE OBST SNOMED Code(s): 76161891 Comment: - Likely due to ileus, no history of intraabdominal surgery - Likely due to opiates and constipation - NG tube placed for vomiting, output is decreasing, no output with suctioning, Clamp and likely remove soon. - NPO, fluids - Another large liquid BM today - Continue Laxatives and Methylnaltrexone and avoid opiates. - Hold Ditropan. (2) Abdominal pain Current Visit: No Status: Acute Code(s): R10.9 - UNSPECIFIED ABDOMINAL PAIN SNOMED Code(s): 21754949 Comment: - Due to Ileus - Having BMs this AM with improvement in pain. - Ileus likely opiate induced, no transition point, continue methylnaltrexone and laxatives. (3) Acute buttock pain Current Visit: No Status: Acute Code(s): M79.1 - MYALGIA * DO NOT USE * SNOMED Code(s): 886043830 Comment: - Complains of right buttock pain, no rash - No signs of osteo or joint infection - Continue Clinda, may change to Oral per ID when able to tolerate PO. - Duration to be determined by ID at Follow up - CRP not declining, unclear significance, no other signs of worsening. (4) Hypoxia Current Visit: Yes Status: Acute Code(s): R09.02 - HYPOXEMIA SNOMED Code(s ): 619059650 Comment: - With Bibasilar infiltrates and vomiting, likely aspiration pneumonitis - No indication for antibiotics beyond clindamycin at this time. - Now saturating well on room air. (5) History of CVA with residual deficit Current Visit: Yes Status: Acute Code(s): I69.30 - UNSPECIFIED SEQUELAE OF CEREBRAL INFARCTION SNOMED Code(s): 002581673 Comment: - Expressive Aphasia and right sided weakenss - Unchanged, continue aspirin and statin. (6) Hypokalemia Current Visit: Yes Status: Acute Code(s): E87.6 - HYPOKALEMIA SNOMED Code( s): 79007085 Comment: - Replace PRN with Mag (7) Hypomagnesemia Current Visit: Yes Status: Acute Code(s): E83.42 - HYPOMAGNESEMIA SNOMED Code(s): 462170876 Comment: - Replace PRN (8) Seizure disorder Current Visit: No Status: Acute Code(s): G40.909 - EPILEPSY, UNSP, NOT INTRACTABLE, WITHOUT STATUS EPILEPTICUS SNOMED Code(s): 521702888 Comment: - Cont topamax and Neurontin - Possible seizure with missed dose to Topamax, continue regimen through NG tube as tolerated. (9) DVT prophylaxis Current Visit: No Status: Acute Code(s): QBT1189 - SNOMED Code(s): 922270381 Comment: - Lovenox SubQ (10) Full code status Current Visit: Yes Status: Acute Code(s): Z78.9 - OTHER SPECIFIED HEALTH STATUS SNOMED Code(s): 707098469 Status and Disposition: inpatient DC home when medically stable.
[2019-04-21] MEDS: Topiramate TAB(*) 100 MG PO SCH (20:56)
[2019-04-21] MEDS: Enoxaparin(*) 40 MG/0.4 ML SYR SUBCUT SCH (20:56)
[2019-04-22] MEDS: oxyCODONE/Acetamin 5/325 MG* TAB PO PRN ×4 (02:35→19:55)
[2019-04-22] MEDS: Clindamycin 600 MG/D5W BAG(*) 600 MG/50 ML BAG IV SCH ×3 (02:35→17:41)
[2019-04-22 05:32] LABS: Calcium 7.8 mg/dL (8.6-10.3); EGFR African American 114.8 (>60); EGFR Non-African American 94.9 (>60); Potassium 3.7 mmol/L (3.5-5.0)
[2019-04-22] MEDS: NS 0.9% 1000 ML** 1,000 ML IV SCH (06:21)
[2019-04-22] MEDS: Pantoprazole TAB * 40 MG TAB PO SCH (09:08)
[2019-04-22] MEDS: Atorvastatin* 80 MG TAB PO SCH (09:08)
[2019-04-22] MEDS: Gabapentin CAP(*) 300 MG PO SCH ×4 (09:08→22:35)
[2019-04-22] MEDS: Citalopram TAB* 20 MG PO SCH (09:08)
[2019-04-22] MEDS: Aspirin EC TAB* 81 MG TAB.EC PO SCH (09:08)
[2019-04-22] MEDS: Tamsulosin CAP* 0.4 MG PO SCH (09:08)
[2019-04-22] MEDS: Baclofen TAB* 10 MG PO SCH ×3 (09:09→22:35)
[2019-04-22] MEDS: Docusate LIQ* 100 MG/10 ML UDC G TUBE SCH (09:11)
[2019-04-22] MEDS: Polyethylene Glycol 3350* 17 GM PACKET PO SCH (09:11)
--- NOTE | 2019-04-22 11:58 | PN ---
Subjective Date of Service: 04/22/19 Interval History: Mr. Cali is feeling okay today. He offers no specific complaints, but is mostly nonverbal, only answering with one word. Denies CP, SOB, abdominal pain, nausea. He did have multiple BMs yesterday and overnight. No concerns from nursing. Family History: Unchanged from Admission Social History: Unchanged from Admission Past Medical History: Unchanged from Admission Objective Active Medications: Acetaminophen (Tylenol Tab*) 650 mg PO Q6H PRN FEVER/PAIN Aspirin (Aspirin Ec Tab*) 81 mg PO DAILY [facility] Atorvastatin Calcium (Lipitor*) 80 mg PO DAILY [facility] Baclofen (Lioresal Tab*) 10 mg PO BID [facility] Citalopram Hydrobromide (Celexa Tab*) 20 mg PO DAILY [facility] Docusate Sodium (Colace Liq*) 100 mg G TUBE BID [facility] Enoxaparin Sodium (Lovenox(*)) 40 mg SUBCUT Q24H [facility] Gabapentin (Neurontin Cap(*)) 300 mg PO TID [facility] Clindamycin HCl/Dextrose (Cleocin 600 Mg/50 Ml(*)) 600 mg in 50 mls @ 100 mls/ hr IV Q8H [facility] Magnesium Hydroxide (Milk Of Magnesia Liq*) 30 ml PO Q4H PRN CONSTIPATION Ondansetron HCl (Zofran Inj*) 4 mg IV Q6H PRN NAUSEA Oxycodone/Acetaminophen (Percocet 5/325 Tab*) 1 tab PO Q4H PRN PAIN - MODERATE Pantoprazole Sodium (Protonix Tab*) 40 mg PO DAILY [facility] Polyethylene Glycol/Electrolytes (Miralax (17 Gm Dose Connor)) 17 gm PO BID [facility] Senna (Senokot 8.6 Mg Tab*) 2 tab PO BEDTIME PRN CONSTIP[facility] Sodium Biphosphate/Sodium Phosphate (Fleet Enema*) 1 bottle [place] DAILY PRN CONSTIPATION Tamsulosin HCl (Flomax Cap*) 0.4 mg PO DAILY [facility] Topiramate (Topamax(*)) 100 mg PO BEDTIME [facility] Vital Signs - 8 hr 04/22/19 04/22/19 04/22/19 04:35 08:00 09:06 Respiratory 17 18 16 Rate 04/22/19 09:08 Respiratory 16 Rate Oxygen Devices in Use Now: None Appearance: Middle-aged male lying in bed in [place] Neck: NL Appearance and Movements; NL JVP, Trachea Midline Respiratory: Symmetrical Chest Expansion and Respiratory Effort, Clear to Auscultation Cardiovascular: NL Sounds; No Murmurs; No JVD, RRR Abdominal: NL Sounds; No Tenderness; No Distention Neurological: - - Nonverbal Lines/Tubes/Other Access: Clean, Dry and Intact Peripheral IV Nutrition: Taking PO's Result Diagrams: 04/21/19 05:48 04/22/19 04:42 Assess/Plan/Problems-Billing Assessment: Mr. 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 - Patient Problems (1) Bowel obstruction Code(s): K56.609 - UNSP INTESTNL OBST, UNSP TO PARTIAL VERSUS COMPLETE OBST Comment: - Likely ileus, no history of intraabdominal surgery - Likely due to opiates and constipation - NG tube removed - Hold opiates - Continue laxatives and methylnaltrexone (2) Abdominal pain Code(s): R10.9 - UNSPECIFIED ABDOMINAL PAIN Comment: - Resolved - Secondary to ileus (3) Acute buttock pain Code(s): M79.1 - MYALGIA * DO NOT USE * Comment: - No further complaints of pain - No signs of osteo or joint infection - CRP not declining, unclear significance; no other signs of worsening - PO abx duration to be determined by ID - Continue clinda (4) Hypoxia Code(s): R09.02 - HYPOXEMIA Comment: - Resolved, now saturating well on room air - With Bibasilar infiltrates and vomiting, likely aspiration pneumonitis - No indication for antibiotics beyond clindamycin at this time (5) History of CVA with residual deficit Code(s): I69.30 - UNSPECIFIED SEQUELAE OF CEREBRAL INFARCTION Comment: - Expressive aphasia and right sided weakenss - Continue aspirin, atorvastatin (6) Seizure disorder Code(s): G40.909 - EPILEPSY, UNSP, NOT INTRACTABLE, WITHOUT STATUS EPILEPTICUS Comment: - Possible seizure with missed dose to Topamax - Continue Topamax, gabapentin (7) DVT prophylaxis Code(s): MCQ5398 - Comment: - Lovenox (8) Full code status Code(s): Z78.9 - OTHER SPECIFIED HEALTH STATUS Comment: Status and Disposition: Inpatient. Anticipate d/c home when medically stable, hopefully tomorrow. Attending: Regina Merritt
[2019-04-22] MEDS: Acetaminophen TAB* 325 MG PO PRN (14:49)
[2019-04-22] MEDS: Ondansetron INJ* 2 MG/ML VIAL IV PRN (18:29)
[2019-04-22] MEDS: Topiramate TAB(*) 100 MG PO SCH (22:03)
[2019-04-22] MEDS ORDERED: Al Hydrox/Mg Hydrox/Simet LIQ* 30 ML UDC PO ONE (22:20)
[2019-04-22] MEDS: Enoxaparin(*) 40 MG/0.4 ML SYR SUBCUT SCH (22:36)
[2019-04-23] MEDS: Docusate LIQ* 100 MG/10 ML UDC G TUBE SCH ×3 (01:53→21:35)
[2019-04-23] MEDS: Polyethylene Glycol 3350* 17 GM PACKET PO SCH ×3 (01:53→21:35)
[2019-04-23] MEDS: Topiramate TAB(*) 100 MG PO SCH ×3 (01:54→23:43)
[2019-04-23] MEDS: Clindamycin 600 MG/D5W BAG(*) 600 MG/50 ML BAG IV SCH ×3 (02:49→21:50)
[2019-04-23] MEDS: Ondansetron INJ* 2 MG/ML VIAL IV PRN (07:36)
[2019-04-23] MEDS: NS 0.9% 1000 ML** 1,000 ML IV SCH ×2 (09:42→23:46)
[2019-04-23] MEDS: PROCHLORPERAZINE INJ 5 MG/ML 2 ML VIAL IV PRN (09:42)
[2019-04-23 09:43] LABS: ABS Eosinophils 0.1 10^3/ul (0-0.6); ABS Lymphocytes 1.5 10^3/ul (1.0-4.8); ABS Monocytes 0.7 10^3/ul (0-0.8); ABS Neutrophils 5.6 10^3/ul (1.5-7.7); Hematocrit 41 % (42-52); Hemoglobin 13.7 g/dL (14.0-18.0); Lymphocyte % 19.2 %; Mean Corpuscular HGB Conc 33 g/dL (31-36); Mean Corpuscular Hemoglobin 28 pg (27-31); Mean Corpuscular Volume 84 fL (80-94); Mean Platelet Volume 7.8 fL (7.4-10.4); Nucleated Red Blood Cells % 0.1; Platelet Count 491 10^3/uL (150-450); Red Cell Distribution Width 15 % (10-15)
[2019-04-23] MEDS: Ketorolac INJ* 30 MG/ML 1 ML VIAL IV PUSH PRN (09:43)
[2019-04-23 09:54] LABS: BUN/Creatinine Ratio 19.8 (8-20); Calcium 8.9 mg/dL (8.6-10.3); EGFR African American 119.7 (>60); EGFR Non-African American 98.9 (>60); Potassium 3.4 mmol/L (3.5-5.0)
--- NOTE | 2019-04-23 10:50 | PN ---
Subjective Date of Service: 04/23/19 Interval History: Mr. Cali is not feeling well today. He is very nauseous this morning and vomited multiple times overnight. Having moderate abdominal pain - diffuse, but mostly right sided. No further BMs. Denies CP or SOB. Nursing reports multiple episodes of emesis overnight, the largest of which was over 800mL. Family History: Unchanged from Admission Social History: Unchanged from Admission Past Medical History: Unchanged from Admission Objective Active Medications: Acetaminophen (Tylenol Tab*) 650 mg PO Q6H PRN FEVER/PAIN Aspirin (Aspirin Ec Tab*) 81 mg PO DAILY [facility] Atorvastatin Calcium (Lipitor*) 80 mg PO DAILY [facility] Baclofen (Lioresal Tab*) 10 mg PO BID [facility] Citalopram Hydrobromide (Celexa Tab*) 20 mg PO DAILY [facility] Docusate Sodium (Colace Liq*) 100 mg G TUBE BID [facility] Enoxaparin Sodium (Lovenox(*)) 40 mg SUBCUT Q24H [facility] Gabapentin (Neurontin Cap(*)) 300 mg PO TID [facility] Sodium Chloride (Ns 0.9% 1000 Ml) 1,000 mls @ 75 mls/hr IV PER RATE [facility] Ketorolac Tromethamine (Toradol Inj*) 30 mg IV PUSH Q6H PRN PAIN - MODERATE Magnesium Hydroxide (Milk Of Magnesia Liq*) 30 ml PO Q4H PRN CONSTIPATION Ondansetron HCl (Zofran Inj*) 4 mg IV Q6H PRN NAUSEA Oxycodone/Acetaminophen (Percocet 5/325 Tab*) 1 tab PO Q4H PRN PAIN - MODERATE Pantoprazole Sodium (Protonix Tab*) 40 mg PO DAILY [facility] Polyethylene Glycol/Electrolytes (Miralax (17 Gm Dose Connor)) 17 gm PO BID [facility] Prochlorperazine Edisylate (Compazine Inj*) 10 mg IV Q6H PRN NAUSEA/VOMITING Senna (Senokot 8.6 Mg Tab*) 2 tab PO BEDTIME PRN [facility] Sodium Biphosphate/Sodium Phosphate (Fleet Enema*) 1 bottle [place] DAILY PRN [facility]STIP[facility] Tamsulosin HCl (Flomax Cap*) 0.4 mg PO DAILY [facility] Topiramate (Topamax(*)) 100 mg PO BEDTIME [facility] Vital Signs - 8 hr 04/23/19 03:00 Temperature 97.6 F Pulse Rate 92 Respiratory 21 Rate Blood Pressure 127/73 (mmHg) O2 Sat by Pulse 93 Oximetry Oxygen Devices in Use Now: None Appearance: Middle-aged male lying in bed in [place], but obviously uncomfortable Neck: NL Appearance and Movements; NL JVP, Trachea Midline Respiratory: Symmetrical Chest Expansion and Respiratory Effort, Clear to Auscultation Cardiovascular: NL Sounds; No Murmurs; No JVD, RRR Abdominal: - - Firm, diffusely tender to palpation Extremities: No Edema Neurological: - - Mostly nonverbal Lines/Tubes/Other Access: Clean, Dry and Intact Peripheral IV Result Diagrams: 04/23/19 09:29 04/23/19 09:29 Assess/Plan/Problems-Billing Assessment: Mr. 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 - Patient Problems (1) Bowel obstruction Code(s): K56.609 - UNSP INTESTNL OBST, UNSP TO PARTIAL VERSUS COMPLETE OBST Comment: - Tolerated solids yesterday, but then had recurrent emesis overnight - Likely ileus, no history of intraabdominal surgery; likely due to opiates and constipation - NG tube removed 04/21 - Hold opiates - Appreciate Surgery consult - Recheck CT today - NPO except meds - Continue laxatives, methylnaltrexone (2) Abdominal pain Code(s): R10.9 - UNSPECIFIED ABDOMINAL PAIN Comment: - Secondary to ileus (3) Acute buttock pain Code(s): M79.1 - MYALGIA * DO NOT USE * Comment: - No further complaints of pain - No signs of osteo or joint infection - CRP not declining, unclear significance; no other signs of worsening - D/c clinda per ID; no need for any further abx (4) Hypoxia Code(s): R09.02 - HYPOXEMIA Comment: - Resolved, now saturating well on room air - With Bibasilar infiltrates and vomiting, likely aspiration pneumonitis - No indication for antibiotics beyond clindamycin at this time (5) History of CVA with residual deficit Code(s): I69.30 - UNSPECIFIED SEQUELAE OF CEREBRAL INFARCTION Comment: - Expressive aphasia and right sided weakenss - Continue aspirin, atorvastatin (6) Seizure disorder Code(s): G40.909 - EPILEPSY, UNSP, NOT INTRACTABLE, WITHOUT STATUS EPILEPTICUS Comment: - Possible seizure with missed dose to Topamax - Continue Topamax, gabapentin (7) DVT prophylaxis Code(s): SWF4331 - Comment: - Lovenox (8) Full code status Code(s): Z78.9 - OTHER SPECIFIED HEALTH STATUS Comment: Status and Disposition: Inpatient. Anticipate d/c home when medically stable. Attending: Regina Merritt
[2019-04-23] MEDS ORDERED: KCL 20 MEQ/100 ML IVPREMIX* 20 MEQ/100 ML BAG IV ONE (10:51)
--- NOTE | 2019-04-23 11:30 | PN ---
Progress Note - Progress Note Date of Service: 04/23/19 SOAP: Subjective: CC: ABD pain HPI: Mr. Cali is a 53 yo male with PMH significant for CVA, PVD s/p right AKA , PE s/p IVC filter, migraines, seizure disorder, HTN, HLD, GERD, glaucoma, and hx right ischial osteomyelitits. Limited ROS due to aphasia. Denies fever, chills, right hip pain. Continues to have ABD pain, reported to have loose stool yesterday. He had emesis overnight after eating yesterday. Objective: Vital Sign 04/23/19 11:15 Temperature 98.3 F Pulse Rate 95 Respiratory 19 Rate Blood Pressure 133/90 (mmHg) Blood Pressure 104 Mean O2 Sat by Pulse 96 Oximetry Patient on Room Yes Air Physical Exam: General: NAD, laying in bed Neurological: Alert and Oriented HEENT: Moist MM Cardiovascular: Heart rate regular Respiratory: Lung sounds clear, diminished Abdominal: Bowel sounds hypoactive, ABD distended, soft, non tender MSK: Negative log roll on the right, and no tenderness with palpation. Full ROM of the right hip Skin: No rash. No open areas or wounds Laboratory Results - last 24 hr 04/23/19 04/23/19 09:29 09:29 WBC 8.0 RBC 4.90 Hgb 13.7 L Hct 41 L MCV 84 MCH 28 MCHC 33 RDW 15 Plt Count 491 H D MPV 7.8 Neut % (Auto) 70.4 Lymph % (Auto) 19.2 Garza % (Auto) 8.9 Eos % (Auto) 1.0 Baso % (Auto) 0.5 Absolute Neuts (auto) 5.6 Absolute Lymphs (auto) 1.5 Absolute Monos (auto) 0.7 Absolute Eos (auto) 0.1 Absolute Basos (auto) 0.0 Absolute Nucleated RBC 0.0 Nucleated RBC % 0.1 Sodium 136 Potassium 3.4 L Chloride 105 Carbon Dioxide 22 Anion Gap 9 BUN 16 Creatinine 0.81 Est GFR ( Amer) 119.7 Est GFR (Non-Af Amer) 98.9 BUN/Creatinine Ratio 19.8 Glucose 135 H Calcium 8.9 Microbiology 04/16/19 15:32 Aerobic Blood Culture - Final Blood Venous No Growth Day 5 Anaerobic Blood Culture - Final No Growth Day 5 04/16/19 15:30 Aerobic Blood Culture - Final Blood Venous No Growth Day 5 Anaerobic Blood Culture - Final No Growth Day 5 04/16/19 16:16 Urine Culture - Final Urine No Growth (<1,000 CFU/mL) Assessment: 1. Right hip pain, resolved. Pt with history of osteomyelitis and sinus tract. ABD/pelvis CT with sinus tract inferior right gluteal skin surface to the right ischial tuberosity, no fluid collection or osteomyelitis. This is similar to the collection previously seen in 2018. MRI with no signs of osteomyelitis and minimal joint effusion. Full ROM of the right hip, no pain with palpation and movement today. Afebrile and no leukocytosis. CRP remains elevated. 2. Bowel obstruction. ABD CT pending. 3. History CVA with aphasia. 4. Obesity. BMI ~33.4 5. PCN, carbapenems, and cephalosporins allergy. Plan: Discontinue Clindamycin. Followup with ID outpatient.
[2019-04-23] MEDS ORDERED: Morphine INJ* 2 MG/ML 1 ML SYRINGE (TWO MG - NEW SYRINGE VERSION) IV ONE (12:27)
[2019-04-23] MEDS ORDERED: Morphine ORAL CONCENTRATE* 5 MG/0.25 ML ORAL.SYRIN SL ONE (12:39)
--- NOTE | 2019-04-23 14:25 | PN ---
Progress Note - Progress Note Date of Service: 04/23/19 Note: Surgery consult noted (full consult dictated): S: (most history obtained from his chart and his mother; patient able to answer yes and no to most questions) 53 yo male, admitted 04/15/19 with increased pain in the area of the R hip/buttock, and thought to have possible cellulitis and/ or fistula from the buttock to the R ischium. (This seems to have resolved; see progress note from today from Allegra Faustin.) Had similar symptoms of abd pain, nausea, and vomiting a couple of days ago, which prompted a CT and placment of NG tube. This was removed 04/21. His diet was advanced. Beginning last night, he again began vomiting, though also is reported to be passing gas and loose stool. O: Vital Signs - 8 hr 04/23/19 04/23/19 04/23/19 11:15 12:49 15:15 Temperature 98.3 F 97.8 F Pulse Rate 95 100 Respiratory 19 20 22 Rate Blood Pressure 133/90 112/88 (mmHg) O2 Sat by Pulse 96 100 Oximetry 04/23/19 16:58 Temperature Pulse Rate Respiratory 20 Rate Blood Pressure (mmHg) O2 Sat by Pulse Oximetry Intake and Output Last 24 Hours 04/21/19 04/22/19 04/23/19 04/24/19 06:59 06:59 06:59 06:59 Intake Total 2223 3627 908 0 Output Total 250 1600 100 Balance 1972 3627 -692 -100 Intake: IV Fluids 1933 1667 15 ABX - CLINDAMYCIN 101 50 15 NS (0.9%) 1832 1617 IVPB 50 55 ABX - CLINDAMYCIN 50 55 Oral 240 1960 838 0 Output: Urine 50 750 100 Emesis 200 850 Other: Estimated Void Medium Medium # Bowel Movements 0 0 2 Estimated Stool Amount Large Small Large # Voids 1 1 Gen: lying in bed; NAD Abd: obese; well-healed supraumbilical surgical incision (s/p repair of hernia as a child, per his mother); +BS, fairly normoactive. Tympanitic. Soft. Some nonlocalized Right sided tenderness. Left side w/o significant tenderness. No masses or obvious hernias. CT today: Exam Date: 04/23/19 08 ADM Status: ADM IN Order Information: CT ABD/PEL W/O Accession Number: [id number] CPT: 61524 Indication: Small bowel obstruction. IMPRESSION: Right pleural effusion and bibasilar consolidation with small bowel obstruction transition point is below the umbilicus near the anterior abdominal wall. Diverticulosis is noted with slightly decompressed colon. AXR: NG appears to be redundant, possibly kinked A/P: SBO vs pSBO vs ileus 2/2 narcotics. Patient also seen and examined by Dr. Meyers. Over the course of the past 3-5 hrs, he has drained over 700 ml from the NG, despite question of correct position. Will continue w/ NG tube, bowel rest. Will repeat plain film in the morning. Will continue to follow closely. Patient and his mother are aware of the potential need for surgical intervention , though not at present.
[2019-04-23] MEDS: Aspirin EC TAB* 81 MG TAB.EC PO SCH (14:48)
[2019-04-23] MEDS: Baclofen TAB* 10 MG PO SCH ×3 (14:48→23:44)
[2019-04-23] MEDS: Atorvastatin* 80 MG TAB PO SCH (14:48)
[2019-04-23] MEDS: Pantoprazole TAB * 40 MG TAB PO SCH (14:49)
[2019-04-23] MEDS: Citalopram TAB* 20 MG PO SCH (14:49)
[2019-04-23] MEDS: Gabapentin CAP(*) 300 MG PO SCH ×4 (14:49→23:43)
[2019-04-23] MEDS: Tamsulosin CAP* 0.4 MG PO SCH (14:49)
--- NOTE | 2019-04-23 17:46 | PN ---
Progress Note - Progress Note Date of Service: 04/23/19
--- NOTE | 2019-04-23 20:57 | CONS ---
CC: Dr. Bobo Hathaway; Dr. Yair Garcia * SURGICAL CONSULTATION REPORT: DATE OF CONSULT: 04/23/19 ATTENDING SURGEON: Dr. Nghia Meyers. CHIEF COMPLAINT: Abdominal pain and vomiting. HISTORY OF PRESENT ILLNESS: This is a 53-year-old male who was admitted on 05/03 for what appeared to be a possible cellulitis of the right buttock. This is related to increased pain in the area of the buttock for which he had a similar admission in 2018. He has a significant history of stroke in 2008 with resultant expressive aphasia and right hemiparesis. He is also status post right BKA. He apparently had no GI symptoms at the time of admission on ; however, he did undergo a CT scan and placement of an NG tube for similar symptoms on 04/19/19. That CT showed diffuse distention and mild dilatation of the small bowel without a transition point. There was noted to be a large amount of stool in the proximal colon. NG tube was apparently removed on and his diet advanced. However, beginning again last night, he had complaints of both abdominal pain and vomiting multiple times. During this period, he also continued to apparently have passage of both loose stool and gas. At the time of today's consult, most of the history was obtained from the chart record and his mother. The patient is able to nod or shake his head yes or no to specific questions. Just prior to the consult visit, an NG tube had been replaced with consequential improvement in his abdominal pain. He had been taking some narcotics including current order for Percocet (4 doses within the last 24 hours and none today). I did not review other prior discontinued narcotic history. His mother states that in the past when he received morphine , he has had similar episodes that were short-lived. He also has occasional constipation at home for which oral laxatives have been sufficient. His only previous abdominal surgery was repair of a supraumbilical hernia as a child. He has not had any other episodes of small bowel obstruction. He did undergo colonoscopy in 2013, which was a normal study. PAST MEDICAL HISTORY: As per his history and physical. CVA; peripheral vascular disease; history of pulmonary embolism (status post IVC filter placement), (no longer term anticoagulation); migraine headache; seizure disorder; hypertension; dyslipidemia; GERD; glaucoma and obesity. PAST SURGICAL HISTORY: Previous surgeries include right [id number] amputation and repair of supraumbilical hernia. MEDICATIONS: His admission medications were reviewed and are not repeated here. ALLERGIES: Not repeated here. FAMILY HISTORY: Not repeated here. SOCIAL HISTORY: Not repeated here. PHYSICAL EXAM: Temperature 98.3, blood pressure 133/90, pulse 95, respirations 19, room air saturation 96%. General: Well-nourished, obese, Afirican- [place]ian male, in no acute distress. He is lying on the bed within an NG tube in place. Exam is limited to the abdomen where there is a obvious surgical scar above the umbilicus. Abdomen is obese. Bowel sounds are present and fairly normoactive. Abdomen is tympanitic across the upper portion. Abdomen is soft with moderate non-well localized tenderness in the right side. It is soft and nontender in the left side. There are no palpable masses or obvious hernias to palpation. Exam is somewhat limited by his body habitus. DIAGNOSTIC STUDIES/LAB DATA: Most recent laboratory was reviewed including an essentially normal CBC and basic chemistries. His CT scan without IV or oral contrast from earlier today had been personally reviewed by myself and with Dr. Meyers. It does show diffuse dilatation of the small bowel with some loops measuring up to 4.5 to 5 cm with air-fluid levels. The colon is essentially empty. The radiologist sees a possible zone of transition in the anterior abdominal wall just adjacent and inferior to the umbilicus. The patient was seen and examined as well by Dr. Meyers. IMPRESSION: Partial small bowel obstruction versus ileus secondary to narcotics. PLAN/RECOMMENDATIONS: NG tube has already been placed. It may need to be backed out based on length of the exterior portion of the tube and based on the plain film that was obtained post tube placement; however, it appeared to be working and was felt to be best to leave in its current position for now. We will obtain a plain film of the abdomen in the morning and follow the patient closely. The patient and his mother both understand that surgical intervention may be required at some interval, but not at the present time based on exam and studies. Narcotics should be minimized if it all possible. BOBO KNIGHT [id number]/[facility] #: [id number] [facility] HEALTH NETWORKClarence
[2019-04-23] MEDS: Enoxaparin(*) 40 MG/0.4 ML SYR SUBCUT SCH (22:12)
[2019-04-24] MEDS: PROCHLORPERAZINE INJ 5 MG/ML 2 ML VIAL IV PRN ×2 (02:02→22:56)
[2019-04-24] MEDS: Clindamycin 600 MG/D5W BAG(*) 600 MG/50 ML BAG IV SCH ×2 (05:35→16:11)
[2019-04-24] MEDS: Ondansetron INJ* 2 MG/ML VIAL IV PRN ×2 (08:16→14:17)
[2019-04-24] MEDS: Ketorolac INJ* 30 MG/ML 1 ML VIAL IV PUSH PRN ×2 (08:16→14:17)
[2019-04-24] MEDS: Citalopram TAB* 20 MG PO SCH (08:17)
[2019-04-24] MEDS: Aspirin EC TAB* 81 MG TAB.EC PO SCH (08:17)
[2019-04-24] MEDS: Gabapentin CAP(*) 300 MG PO SCH ×3 (08:17→22:55)
[2019-04-24] MEDS: Pantoprazole TAB * 40 MG TAB PO SCH (08:17)
[2019-04-24] MEDS: Atorvastatin* 80 MG TAB PO SCH (08:17)
[2019-04-24] MEDS: Tamsulosin CAP* 0.4 MG PO SCH (08:17)
[2019-04-24] MEDS: Baclofen TAB* 10 MG PO SCH ×2 (08:17→22:56)
[2019-04-24] MEDS: Polyethylene Glycol 3350* 17 GM PACKET PO SCH ×2 (09:16→22:56)
[2019-04-24] MEDS: Docusate LIQ* 100 MG/10 ML UDC G TUBE SCH ×2 (09:16→23:15)
[2019-04-24 10:15] LABS: BUN/Creatinine Ratio 25.8 (8-20); Calcium 8.5 mg/dL (8.6-10.3); EGFR African American 107.4 (>60); EGFR Non-African American 88.7 (>60); Magnesium 2.2 mg/dL (1.9-2.7); Potassium 3.4 mmol/L (3.5-5.0)
[2019-04-24] MEDS: KCL 20 MEQ/100 ML IVPREMIX* 20 MEQ/100 ML BAG IV SCH ×2 (11:08→13:06)
--- NOTE | 2019-04-24 11:56 | PN ---
Progress Note - Progress Note Date of Service: 04/24/19 Note: Surgery Progress: S: seems to be feeling better; less pain (only getting Toradol). Per patient, not passing flatus; per nursing had BM last night. O: Vital Signs - 8 hr 04/24/19 04/24/19 04/24/19 07:15 08:00 08:17 Temperature 97.1 F Pulse Rate 91 Respiratory 22 18 20 Rate Blood Pressure 151/92 (mmHg) O2 Sat by Pulse 93 Oximetry 04/24/19 04/24/19 10:27 10:51 Temperature 97.4 F Pulse Rate 87 Respiratory 18 21 Rate Blood Pressure 127/80 (mmHg) O2 Sat by Pulse 94 Oximetry Intake and Output Last 24 Hours 04/22/19 04/23/19 04/24/19 04/25/19 06:59 06:59 06:59 06:59 Intake Total 3627 908 2457 10 Output Total 1600 1900 300 Balance 3627 -692 557 -290 Intake: IV Fluids 1667 15 2347 ABX - CLINDAMYCIN 50 15 100 NS (0.9%) 1617 2147 potassium 100 IVPB 55 110 ABX - CLINDAMYCIN 55 110 Oral 1960 838 0 NG Tube Irrigate Amount 10 Output: NG Tube Drainage Amount 300 Urine 750 400 Emesis 850 700 Suctioning 800 Other: Estimated Void Medium Large # Bowel Movements 0 2 2 Estimated Stool Amount Small Large Small Small # Voids 1 2 Gen: appears comfortable Heart: reg Lungs: clear Abd: obese; somewhat less tympanitic vs yesterday; +BS; soft; no appreciable tenderness to palp AXR: (unread) still w/ sig dilated SB loops; some gas in R colon; NG clearly coiled within the stomach A: SBO improving P: cont NG (to be backed out 12"); will cont to follow; discussed w/ Dr. Meyers.
[2019-04-24] MEDS: NS 0.9% 1000 ML** 1,000 ML IV SCH (14:06)
--- NOTE | 2019-04-24 15:14 | PN ---
Subjective Date of Service: 04/24/19 Interval History: Mr. Cali is aphasic and has some difficulty with communication. He continues to have L sided abdominal pain, nausea, and vomiting. Family History: Unchanged from Admission Social History: Unchanged from Admission Past Medical History: Unchanged from Admission Objective Active Medications: Acetaminophen (Tylenol Tab*) 650 mg PO Q6H PRN PRN Reason: FEVER/PAIN Last Admin: 04/22/19 14:49 Dose: 650 mg Aspirin (Aspirin Ec Tab*) 81 mg PO DAILY REPLACED BY [facility] Last Admin: 04/24/19 08:17 Dose: 81 mg Atorvastatin Calcium (Lipitor*) 80 mg PO DAILY REPLACED BY [facility] Last Admin: 04/24/19 08:17 Dose: 80 mg Baclofen (Lioresal Tab*) 10 mg PO BID REPLACED BY [facility] Last Admin: 04/24/19 08:17 Dose: 10 mg Citalopram Hydrobromide (Celexa Tab*) 20 mg PO DAILY REPLACED BY [facility] Last Admin: 04/24/19 08:17 Dose: 20 mg Docusate Sodium (Colace Liq*) 100 mg G TUBE BID REPLACED BY [facility] Last Admin: 04/24/19 09:16 Dose: Not Given Enoxaparin Sodium (Lovenox(*)) 40 mg SUBCUT Q24H REPLACED BY [facility] Last Admin: 04/23/19 22:12 Dose: 40 mg Gabapentin (Neurontin Cap(*)) 300 mg PO TID REPLACED BY [facility] Last Admin: 04/24/19 14:16 Dose: 300 mg Sodium Chloride (Ns 0.9% 1000 Ml) 1,000 mls @ 75 mls/hr IV PER RATE REPLACED BY [facility] Last Admin: 04/24/19 14:06 Dose: 75 mls/hr Clindamycin HCl/Dextrose (Cleocin 600 Mg/50 Ml(*)) 600 mg in 50 mls @ 100 mls/ hr IV Q8H REPLACED BY [facility] Last Admin: 04/24/19 05:35 Dose: 100 mls/hr Ketorolac Tromethamine (Toradol Inj*) 30 mg IV PUSH Q6H PRN PRN Reason: PAIN - MODERATE Last Admin: 04/24/19 14:17 Dose: 30 mg Magnesium Hydroxide (Milk Of Magnesia Liq*) 30 ml PO Q4H PRN PRN Reason: CONSTIPATION Last Admin: 04/19/19 08:53 Dose: 30 ml Ondansetron HCl (Zofran Inj*) 4 mg IV Q6H PRN PRN Reason: NAUSEA Last Admin: 04/24/19 14:17 Dose: 4 mg Oxycodone/Acetaminophen (Percocet 5/325 Tab*) 1 tab PO Q4H PRN PRN Reason: PAIN - MODERATE Last Admin: 04/22/19 19:55 Dose: 1 tab Pantoprazole Sodium (Protonix Tab*) 40 mg PO DAILY REPLACED BY [facility] Last Admin: 04/24/19 08:17 Dose: 40 mg Polyethylene Glycol/Electrolytes (Miralax (17 Gm Dose Connor)) 17 gm PO BID REPLACED BY [facility] Last Admin: 04/24/19 09:16 Dose: Not Given Prochlorperazine Edisylate (Compazine Inj*) 10 mg IV Q6H PRN PRN Reason: NAUSEA/VOMITING Last Admin: 04/24/19 02:02 Dose: 10 mg Senna (Senokot 8.6 Mg Tab*) 2 tab PO BEDTIME PRN PRN Reason: CONSTIPATION Last Admin: 04/18/19 20:42 Dose: 2 tab Sodium Biphosphate/Sodium Phosphate (Fleet Enema*) 1 bottle MN DAILY PRN PRN Reason: CONSTIPATION Last Admin: 04/19/19 17:03 Dose: 1 bottle Tamsulosin HCl (Flomax Cap*) 0.4 mg PO DAILY REPLACED BY [facility] Last Admin: 04/24/19 08:17 Dose: 0.4 mg Topiramate (Topamax(*)) 100 mg PO BEDTIME REPLACED BY [facility] Last Admin: 04/23/19 23:43 Dose: 100 mg Vital Signs: Temp Pulse Resp BP Pulse Ox 97.4 F 87 18 127/80 94 04/24/19 10:51 04/24/19 10:51 04/24/19 14:16 04/24/19 10:51 04/24/19 10:51 Oxygen Devices in Use Now: None Appearance: Mr. Cali is a middle aged black male who is sitting up in bed; he appears acutely ill and is mildly diaphoretic and uncomfortable appearing. Ears/Nose/Mouth/Throat: - - NG tube in place Respiratory: Symmetrical Chest Expansion and Respiratory Effort, Clear to Auscultation Cardiovascular: NL Sounds; No Murmurs; No JVD, RRR, No Edema Abdominal: - - BS hypoactive, but present; abdominal distension with tenderness to palpations Extremities: No Edema, No Clubbing, Cyanosis Result Diagrams: 04/23/19 09:29 04/24/19 09:48 Microbiology and Other Data: Microbiology 04/16/19 15:32 Aerobic Blood Culture - Preliminary Blood Venous No Growth Day 1 Anaerobic Blood Culture - Preliminary No Growth Day 1 04/16/19 15:30 Aerobic Blood Culture - Preliminary Blood Venous No Growth Day 1 Anaerobic Blood Culture - Preliminary No Growth Day 1 Assess/Plan/Problems-Billing Assessment: Mr. 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 - Patient Problems (1) Bowel obstruction Comment: - Tolerated solids 04/22, but then had recurrent emesis overnight - Likely ileus, no history of intraabdominal surgery; likely due to opiates and constipation - NG tube removed 04/21; reinserted 04/23 - Hold opiates - Appreciate Surgery consult; continue NG tube and continued conservative treatment - Abdominal XR today: no significant change from 04/23 - NPO except meds - Continue laxatives, methylnaltrexone (2) Abdominal pain Comment: - Secondary to ileus (3) Acute buttock pain Comment: - No further complaints of pain - No signs of osteo or joint infection - CRP not declining, unclear significance; no other signs of worsening - D/c clinda per ID; no need for any further abx (4) Hypoxia Comment: - Resolved, now saturating well on room air - With Bibasilar infiltrates and vomiting, likely aspiration pneumonitis - afebrile, no leukocytosis - no indication for further antibiotics at this time (5) Seizure disorder Comment: - Possible seizure with missed dose to Topamax - Continue Topamax, gabapentin (6) History of CVA with residual deficit Comment: - Expressive aphasia and right sided weakenss - Continue aspirin, atorvastatin (7) DVT prophylaxis Comment: - Lovenox (8) Full code status Comment: Status and Disposition: Inpatient. Anticipate d/c home when medically stable.
[2019-04-24] MEDS: Topiramate TAB(*) 100 MG PO SCH (22:55)
[2019-04-24] MEDS: Acetaminophen TAB* 325 MG PO PRN (22:55)
[2019-04-24] MEDS: Enoxaparin(*) 40 MG/0.4 ML SYR SUBCUT SCH (22:56)
[2019-04-24] MEDS: Docusate CAP* 100 MG PO SCH (23:08)
[2019-04-25] MEDS: NS 0.9% 1000 ML** 1,000 ML IV SCH (04:01)
[2019-04-25 08:33] LABS: ABS Eosinophils 0.2 10^3/ul (0-0.6); ABS Monocytes 0.8 10^3/ul (0-0.8); ABS Neutrophils 6.7 10^3/ul (1.5-7.7); Eosinophil % 2.4 %; Hematocrit 43 % (42-52); Hemoglobin 14.4 g/dL (14.0-18.0); Lymphocyte % 20.9 %; Mean Corpuscular HGB Conc 33 g/dL (31-36); Mean Corpuscular Hemoglobin 29 pg (27-31); Mean Corpuscular Volume 86 fL (80-94); Mean Platelet Volume 7.9 fL (7.4-10.4); Platelet Count 492 10^3/uL (150-450); Red Blood Count 5.03 10^6 /uL (4.18-5.48); Red Cell Distribution Width 15 % (10-15); White Blood Count 9.7 10^3/uL (3.5-10.8)
[2019-04-25 08:38] LABS: Calcium 8.4 mg/dL (8.6-10.3); EGFR African American 102.1 (>60); EGFR Non-African American 84.4 (>60); Magnesium 2.2 mg/dL (1.9-2.7); Potassium 3.8 mmol/L (3.5-5.0)
[2019-04-25] MEDS: Ketorolac INJ* 30 MG/ML 1 ML VIAL IV PUSH PRN (08:43)
[2019-04-25] MEDS ORDERED: Methylnaltrexone SQ (NF) 12 MG/0.6 ML VIAL SUBCUT SCH (09:00)
[2019-04-25] MEDS: PROCHLORPERAZINE INJ 5 MG/ML 2 ML VIAL IV PRN (09:26)
[2019-04-25] MEDS: Methylnaltrexone SQ (NF) 12 MG/0.6 ML VIAL SUBCUT SCH (09:27)
[2019-04-25] MEDS: Pantoprazole TAB * 40 MG TAB PO SCH (09:34)
[2019-04-25] MEDS: Atorvastatin* 80 MG TAB PO SCH (09:34)
[2019-04-25] MEDS: Gabapentin CAP(*) 300 MG PO SCH ×3 (09:34→20:19)
[2019-04-25] MEDS: Aspirin EC TAB* 81 MG TAB.EC PO SCH (09:34)
[2019-04-25] MEDS: Citalopram TAB* 20 MG PO SCH (09:35)
[2019-04-25] MEDS: Acetaminophen TAB* 325 MG PO PRN (09:35)
[2019-04-25] MEDS: Baclofen TAB* 10 MG PO SCH ×2 (09:35→20:19)
[2019-04-25] MEDS: Docusate CAP* 100 MG PO SCH (09:35)
[2019-04-25] MEDS: Tamsulosin CAP* 0.4 MG PO SCH (09:35)
[2019-04-25] MEDS: Polyethylene Glycol 3350* 17 GM PACKET PO SCH (09:47)
[2019-04-25] MEDS ORDERED: D5W 1/2 NS 1000 ML BAG* 1,000 ML IV SCH (11:00)
[2019-04-25] MEDS ORDERED: Topiramate TAB(*) 25 MG PO ONE (11:20)
--- NOTE | 2019-04-25 12:45 | CONS ---
CC: Dr. Hathaway CONSULTATION REPORT: DATE OF CONSULT: 04/25/19 LOCATION: This is a 53-year-old gentleman currently in room 419, bed 1. PRIMARY CARE PROVIDER: Dr. Hathaway. REASON FOR CONSULT: Possible seizure activity. HISTORY OF PRESENT ILLNESS: Mr. Cali is a 53-year-old gentleman who is well known to me. I kristyo w him in clinic, last saw him on 03/21/19. At that time, he was following up for his history of seiz ures and migraines. He has a long history of seizures, has a history of a stroke in 2008 with residu al aphasia and right hemiparesis. He is also status post a right BKA. At the time that I last saw h im, he was doing well. Things were "status quo." He noted some problem sleeping, but otherwise ther e was no seizure activity reported and his headaches seemed to be improved on the Topamax. He report ed that his last seizure was 1 year ago. This was all relayed to me through his instructional aide. The carol ent requires constant assistance because of his medical conditions. For his seizures, he was taking Topamax 100 mg at night and 50 mg in the morning. He also was taking the Topamax for his migraine he astridches, which was helping and he was on secondary stroke risk factor risk reduction for his history of CVA. He has a history of PE and is status post IVC filter placement and is on no long-term antico agulation. Initially admitted on 04/15/19 with right buttock cellulitis and pain. He had a similar admission in 2018. During his hospitalization, he has been treated with antibiotics. ID has been fo llowing. Also has been getting some narcotics and subsequently several days ago developed what appea rs to be either an ileus or small bowel obstruction. Currently has an NG tube in place and Surgery i s following. He has been getting his medications on a regular basis, but he has only been getting 10 0 mg of Topamax at night and he does not appear he has been getting his morning dose. Last night bridgett arently, he had at least 1 episode where he was staring, became somewhat unresponsive and then was co nfused afterwards. He apparently had an episode of staring last night with some unresponsiveness aft erwards concerning for seizure activity. Since then, he has been apparently seizure-free, no reporte d generalized tonic clonic seizures or staring spells. He has otherwise had no seizures reported. PAST MEDICAL HISTORY: As noted above including CVA in 2007 with residual aphasia and right hemipares is, right AKA, PVD, PE with IVC, migraine headaches, seizures, dyslipidemia, GERD, hypertension, glau coma. PAST SURGICAL HISTORY: Right AKA. MEDICATIONS: Per my list from outpatient visit, his medications at home include: 1. Topamax 50 mg in the morning and 100 mg at night. 2. Milk of magnesia. 3. Nortriptyline 10 mg 2 pills every night. 4. Aspirin 81 mg every day. 5. Metoprolol 25 mg b.i.d. 6. Atorvastatin 80 mg every day. 7. Citalopram 20 mg every day. 8. Baclofen 10 mg twice a day. 9. Gabapentin 300 mg in the morning and 600 mg at night. 10. Latanoprost eye drops. 11. Omeprazole 20 mg every day. 12. Artificial tears. 13. Macrodantin 100 mg daily. 14. Guiatuss. 15. Hydrochlorothiazide 25 mg daily. 16. Neosporin. 17. Colace. 18. Acetaminophen. 19. Fenofibrate 145 mg every day. 20. Senna tabs. ALLERGIES: To PENICILLIN, CARBAPENEM,CEPHALOSPORINS, and LATEX. FAMILY HISTORY: Significant for coronary artery disease and rheumatoid arthritis. SOCIAL HISTORY: He is disabled. He has a instructional aide. His mother is his healthcare proxy. No tobacc o or alcohol use. REVIEW OF SYSTEMS: Unable to be obtained because of his difficulty expressing himself. PHYSICAL EXAM: Temperature is 97, pulse rate of 96, respiratory rate of 22, blood pressure 130/68. General: He is a well-nourished, obese gentleman, in no acute distress. He is lying in his hospital bed. He has an NG tube in place. He is normocephalic, atraumatic. Sclerae are anicteric. Mucous membranes are dry. Oropharynx is clear. Neck is supple. Chest: Clear to auscultation bilaterally. C ardiovascular: Regular rate and rhythm. His abdomen is distended. Extremities: No clubbing, cyanos is, or edema is appreciated. He does have a right AKA. Neurologic examination: He is awake. He is alert. He orients to person. He has got an expressive and partial receptive aphasia, but does follo w commands and is able to nod his head, did answer most times appropriately. Pupils are equal and re active to light. Extraocular muscles appear intact. Visual doshi are difficult to assess. He has a right facial droop. Facial sensation was difficult to assess. Palate is symmetric. Tongue is midl ine. He has dense right hemiparesis in the right AKA. On the left side, he is moving his upper and lower extremities antigravity. No focal weakness appreciated. Sensation is again difficult to asses s. Appears to have decreased sensation in the left side upper and lower extremity. DTRs were absent at the upper and lower extremity. I could not assess [id number] and rapid alternating movements at this time, but he had no resting tremors appreciated. Gait could not be tested. DIAGNOSTIC STUDIES/LAB DATA: Lab work includes CBC with diff today that showed platelet count of 492 , otherwise normal. Basic metabolic panel today with carbon dioxide of 19, BUN of 26, glucose of 125 , calcium of 8.4, magnesium of 2.2, C- reactive protein of 197.92. ASSESSMENT AND PLAN: Mr. Cali is a 53-year-old gentleman who I know very well from clinic, has a history of cerebrovascular accident in the past in 2008, possibly in 1999 as well with resultant righ t hemiparesis, spastic in nature as well as aphasia with expressive and receptive component, who was admitted to the hospital with right buttock cellulitis and is being treated for that, but during his hospitalization has developed an ileus versus small bowel obstruction. He has been getting his Topam ax but at a reduced dose. He normally gets 50 mg in the morning and 100 mg at night, but has only be en getting 100 mg at night. It sounds like he may have had some seizure-like activity last night wit h some staring spell and unresponsiveness for a few minutes and subsequently seemed confused afterwar ds. No generalized tonic activity was reported. He has a known seizure disorder and it has been well controlled on Topamax and gabapentin. My plan would be to continue his gabapentin 300 mg t.i.d. No rmally he takes 300 mg in the morning and 600 mg at night, but I think it is okay to dose him t.i.d. at this point. I am going to increase his Topamax from 100 mg at night to 50 mg in the morning and 1 00 mg at night and because he has a small bowel obstruction versus ileus, I am going to add on small dose of Keppra IV just to cover him while he is in the hospital. Once he is taking p.o., we could st op the Keppra, but I think having the Keppra on board may help to prevent any further seizure activit y. Also adding back in the Topamax will likely help as well. His last Topamax level on 50 in the mo rning and 100 at night was 5.1, so we may want to increase his dose further. Topamax level has been sent, but he has been well controlled on the current dose, though I am inclined to leave him on that for now. The plan would be to continue his Topamax 50 in the morning and 100 at night. Continue the Keppra until he is taking p.o. consistently and then stop the Keppra. Discharge home on the Topamax and gabapentin and I will see him back in clinic after discharge. Thank you for the opportunity to participate in the care of this very interesting patient. [id number]/[facility] #: [id number]
[2019-04-25] MEDS: levETIRAcetam IV* 250 MG in NS 0.9% 100 ML* 100 ML IVPB SCH ×2 (13:05→23:15)
[2019-04-25] MEDS ORDERED: Buffered Lidocaine 1% SYRIN* 1 ML/SYRINGE INTRADERM ONE (13:31)
[2019-04-25] MEDS ORDERED: Famotidine IV* 10 MG/ML 2 ML (20 mg) IV ONE (13:31)
[2019-04-25] MEDS ORDERED: Midazolam* 1 MG/ML 2 ML VIAL (2 MG) ONE (13:33)
[2019-04-25] MEDS ORDERED: fentaNYL* 50 MCG/ML 2 ML VIAL (100 MCG VIAL) ONE ×2 (13:33→16:45)
--- NOTE | 2019-04-25 13:54 | PN ---
Subjective Date of Service: 04/25/19 Interval History: Mr. Cali is an aphasic gentleman who has a somewhat difficult time making his needs known. He admits to nausea and some retching, but denies abdominal pain. He does not believe he had a seizure last night, although is unsure. He has no other complaints today. Family History: Unchanged from Admission Social History: Unchanged from Admission Past Medical History: Unchanged from Admission Objective Active Medications: Acetaminophen (Tylenol Tab*) 650 mg PO Q6H PRN PRN Reason: FEVER/PAIN Last Admin: 04/25/19 09:35 Dose: 650 mg Aspirin (Aspirin Ec Tab*) 81 mg PO DAILY [facility] Last Admin: 04/25/19 09:34 Dose: 81 mg Atorvastatin Calcium (Lipitor*) 80 mg PO DAILY [facility] Last Admin: 04/25/19 09:34 Dose: 80 mg Baclofen (Lioresal Tab*) 10 mg PO BID [facility] Last Admin: 04/25/19 09:35 Dose: 10 mg Citalopram Hydrobromide (Celexa Tab*) 20 mg PO DAILY [facility] Last Admin: 04/25/19 09:35 Dose: 20 mg Docusate Sodium (Colace Cap*) 100 mg PO BID [facility] Last Admin: 04/25/19 09:35 Dose: 100 mg Enoxaparin Sodium (Lovenox(*)) 40 mg SUBCUT Q24H [facility] Last Admin: 04/24/19 22:56 Dose: 40 mg Famotidine (Pepcid Iv*) 20 mg IV ONCE ONE Stop: 04/25/19 13:32 Gabapentin (Neurontin Cap(*)) 300 mg PO TID [facility] Last Admin: 04/25/19 13:05 Dose: 300 mg Dextrose/Sodium Chloride (D5w 1/2 Ns 1000 Ml Bag*) 1,000 mls @ 125 mls/hr IV PER RATE [facility] Last Admin: 04/25/19 11:22 Dose: 125 mls/hr Levetiracetam 250 mg/ Sodium (Chloride) 102.5 mls @ 410 mls/hr IVPB Q12H [facility] Last Admin: 04/25/19 13:05 Dose: 410 mls/hr Lactated Ringer's (Lactated Ringers 1000 Ml Bag*) 1,000 mls @ 125 mls/hr IV PER RATE [facility] Ketorolac Tromethamine (Toradol Inj*) 30 mg IV PUSH Q6H PRN PRN Reason: PAIN - MODERATE Last Admin: 04/25/19 08:43 Dose: 30 mg Lidocaine/Sodium Bicarbonate (Buffered Lidocaine 1% Syrin*) 0.2 ml INTRADERM ONCE ONE Stop: 04/25/19 13:32 Magnesium Hydroxide (Milk Of Magnesia Liq*) 30 ml PO Q4H PRN PRN Reason: CONSTIPATION Last Admin: 04/19/19 08:53 Dose: 30 ml Methylnaltrexone [place] (Relistor Sq (Nf)) 12 mg SUBCUT DAILY [facility]; Protocol Last Admin: 04/25/19 09:27 Dose: 12 mg Ondansetron HCl (Zofran Inj*) 4 mg IV Q6H PRN PRN Reason: NAUSEA Last Admin: 04/24/19 14:17 Dose: 4 mg Oxycodone/Acetaminophen (Percocet 5/325 Tab*) 1 tab PO Q4H PRN PRN Reason: PAIN - MODERATE Last Admin: 04/22/19 19:55 Dose: 1 tab Pantoprazole Sodium (Protonix Tab*) 40 mg PO DAILY [facility] Last Admin: 04/25/19 09:34 Dose: 40 mg Polyethylene Glycol/Electrolytes (Miralax (17 Gm Dose [place])) 17 gm PO BID [facility] Last Admin: 04/25/19 09:47 Dose: Not Given Prochlorperazine Edisylate (Compazine Inj*) 10 mg IV Q6H PRN PRN Reason: NAUSEA/VOMITING Last Admin: 04/25/19 09:26 Dose: 10 mg Senna (Senokot 8.6 Mg Tab*) 2 tab PO BEDTIME PRN PRN Reason: CONSTIPATION Last Admin: 04/18/19 20:42 Dose: 2 tab Sodium Biphosphate/Sodium Phosphate (Fleet Enema*) 1 bottle [place] DAILY PRN PRN Reason: CONSTIPATION Last Admin: 04/19/19 17:03 Dose: 1 bottle Tamsulosin HCl (Flomax Cap*) 0.4 mg PO DAILY [facility] Last Admin: 04/25/19 09:35 Dose: 0.4 mg Topiramate (Topamax(*)) 100 mg PO BEDTIME [facility] Last Admin: 04/24/19 22:55 Dose: 100 mg Topiramate (Topamax(*)) 50 mg PO QAM [facility] Vital Signs: Temp Pulse Resp BP Pulse Ox 97.9 F 88 19 129/77 97 04/25/19 11:25 04/25/19 11:25 04/25/19 13:05 04/25/19 11:25 04/25/19 11:25 Oxygen Devices in Use Now: None Appearance: Mr. Cali is a middle aged black male who is laying in bed. He appears mildly uncomfortable and fatigued. He is in no acute distress. Ears/Nose/Mouth/Throat: NL Teeth, Lips, Gums, Clear Oropharnyx Neck: NL Appearance and Movements; NL JVP, Trachea Midline Respiratory: Symmetrical Chest Expansion and Respiratory Effort, Clear to Auscultation Cardiovascular: NL Sounds; No Murmurs; No JVD, RRR, No Edema Abdominal: - - NGT in place; abdominal distention; decreased bowel sounds thoughout entire abdomen; mildly tender to palpation Extremities: No Edema, No Clubbing, Cyanosis Result Diagrams: 04/25/19 08:05 04/25/19 08:05 Microbiology and Other Data: Microbiology 04/16/19 15:32 Aerobic Blood Culture - Preliminary Blood Venous No Growth Day 1 Anaerobic Blood Culture - Preliminary No Growth Day 1 04/16/19 15:30 Aerobic Blood Culture - Preliminary Blood Venous No Growth Day 1 Anaerobic Blood Culture - Preliminary No Growth Day 1 Assess/Plan/Problems-Billing Assessment: Mr. 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 - Patient Problems (1) Bowel obstruction Comment: - Tolerated solids 04/22, but then had recurrent emesis overnight - SBO vs ileus; history of hernia repair only; opiates and constipation likely contributing - NG tube removed 04/21; reinserted 04/23 - Hold opiates - Appreciate Surgery consult; plan for surgical intervention this afternoon - Abdominal XR 04/24: no significant change - NPO except meds - Continue laxatives, methylnaltrexone - surgical lap today (2) Seizure disorder Comment: -possible seizure with missed dose to Topamax 04/20, recurred overnight 04/24 -pt usually takes topiramate 50 a.m., 100 p.m.; while inpatient, only taking 100 bedtime -malabsorption in setting of SBO probably contributing -neurology consulted; thank you for recommendations -patient placed on Keppra IV while NPO; d/c once tolerating PO -Topamax level pending -continue Topamax at home dose, gabapentin (3) Acute buttock pain Comment: - No further complaints of pain - MRI without signs of osteo or joint infection - CRP not declining, unclear significance; no other signs of worsening; possibly related to current abdominal pathology - D/c clinda per ID; no need for any further abx (4) Hypoxia Comment: - Resolved, now saturating well on room air - With Bibasilar infiltrates and vomiting, likely aspiration pneumonitis - afebrile, no leukocytosis - no indication for further antibiotics at this time - continue to monitor (5) History of CVA with residual deficit Comment: - Expressive aphasia and right sided weakenss - Continue aspirin, atorvastatin (6) DVT prophylaxis Comment: - Lovenox (7) Full code status Comment: Status and Disposition: Inpatient. Anticipate d/c home when medically stable.
[2019-04-25] MEDS ORDERED: Lactated Ringers 1000 ML Bag* 1,000 ML IV SCH (14:00)
[2019-04-25] MEDS ORDERED: Famotidine IV* 10 MG/ML 2 ML (20 mg) ONE (14:02)
[2019-04-25] MEDS ORDERED: Glycopyrrolate IV* 0.2 MG/ML 1 ML VIAL ONE (14:41)
[2019-04-25] MEDS ORDERED: Lidocaine 2% PF * 5 ML VIAL ONE (14:50)
[2019-04-25] MEDS ORDERED: Succinylcholine* 20 MG/ML 10 ML VIAL ONE (14:50)
[2019-04-25] MEDS ORDERED: Propofol* 10 MG/ML 20 ML BTL ONE (14:50)
[2019-04-25] MEDS ORDERED: Dexamethasone IV* 4 MG/ML 1 ML (4 MG) ONE (14:50)
[2019-04-25] MEDS ORDERED: Rocuronium* 10 MG/ML VIAL ONE (14:51)
[2019-04-25] MEDS ORDERED: Phenylephrine 40 MCG/ML SYRINGE ONE (15:06)
[2019-04-25] MEDS ORDERED: Bupivacaine 0.5%* 50 ML MDV VIAL ONE (15:10)
[2019-04-25] MEDS ORDERED: ceFAZolin 2 GM in NS PREMIX(*) 2 GM/100 ML BAG IVPB ONE (15:19)
[2019-04-25] MEDS ORDERED: Naloxone* 0.4 MG/ML 1 ML VIAL IV PRN (15:23)
[2019-04-25] MEDS ORDERED: Levalbuterol 0.63MG/3ML NEB* UNIT OF USE INH PRN (15:23)
[2019-04-25] MEDS ORDERED: Acetaminophen IV 1GM/100ML * 100 ML ONE (15:28)
[2019-04-25] MEDS ORDERED: Ketorolac INJ* 30 MG/ML 1 ML VIAL ONE (15:45)
--- NOTE | 2019-04-25 16:00 | BRIEFOPN ---
Brief Operative/Procedure Note - Operation Details Pre-Op Diagnosis: small bowel obstruction Post-Op Diagnosis: No evidence of SBO; probable ileus Procedures: diagnostic laparoscopy; lysis of adhesions Surgeon(s)/Proceduralists: Luigi. Assist: BOBO [place] Anesthesia: GET. Fluids: 700 ml RL Estimated Blood Loss: none Findings: omental adhesions to anterior abdominal wall Specimen(s)/Culture(s) Description: none Complications: none
[2019-04-25] MEDS: fentaNYL* 50 MCG/ML 2 ML VIAL (100 MCG VIAL) IV PRN ×2 (16:46→16:56)
[2019-04-25] MEDS ORDERED: Morphine INJ* 4 MG/ML 1 ML SYRINGE (NEW SYRINGE VERSION) IV PRN (18:11)
[2019-04-25] MEDS: Lactated Ringers 1000 ML Bag* 1,000 ML IV SCH (18:18)
[2019-04-25] MEDS: Topiramate TAB(*) 100 MG PO SCH (20:19)
[2019-04-25] MEDS: Enoxaparin(*) 40 MG/0.4 ML SYR SUBCUT SCH (21:41)
--- NOTE | 2019-04-26 00:12 | OP ---
DATE OF OPERATION: 04/25/19 - ROOM #419 DATE OF : 61 ATTENDING SURGEON: Nghia Meyers MD. NEUROLOGY HOSPITALIST: BOBO [place]. PRE-OP DIAGNOSIS: Small bowel obstruction. POST-OP DIAGNOSIS: No small bowel obstruction. OPERATIVE PROCEDURE: Exploratory laparoscopy, lysis of adhesions. INDICATIONS FOR PROCEDURE: Persistent apparent small bowel obstruction clinically and by CT scan. Risks of surgery included, but are not limited to bleeding, infection, injury to bowel and other intraabdominal contents were discussed with the patient and his mother. His mother gave consent for surgery. All questions were answered. DESCRIPTION OF PROCEDURE: In the operating room, under general endotracheal anesthesia in the supine position, the abdomen was prepped and draped in a sterile fashion. Preoperative antibiotics were administered. The abdomen was prepped and draped in a sterile fashion. In the left upper quadrant, a 5 mm trocar was placed under direct visualization of the camera. Using a bladeless Optiview trocar, pneumoperitoneum was achieved at 12 mmHg. The abdomen was scanned. No obvious injury was noted from the trocar placement. A left lower quadrant 5 mm trocar was placed as well. Multiple dilated loops of small bowel were noted. No fluid was noted in the abdomen. Adhesions were noted from the omentum up to his old midline incisions. These were taken down bluntly along an avascular plane. The bowel was then followed down to the ileocecal valve. The terminal ileum was dilated. The cecum appeared dilated. The bowel was run from the terminal ileum back towards the ligament of Treitz. The entire length of bowel was dilated. No obstructive point was noted. No transition points noted. The sigmoid colon appeared dilated. The liver appeared normal. The gallbladder appeared normal. The appendix appeared normal. The stomach appeared normal. Transverse colon was evaluated. It did not appear dilated. No other abnormalities were noted within the abdomen. The pneumoperitoneum was released from the abdomen. The trocars were removed. The skin was closed with 3-0 Monocryl. Glue was applied. The patient tolerated the procedure well. [id number]/[facility] #: [id number] [facility]
[2019-04-26] MEDS: levETIRAcetam IV* 250 MG in NS 0.9% 100 ML* 100 ML IVPB SCH ×3 (00:58→23:45)
[2019-04-26] MEDS: Ketorolac INJ* 30 MG/ML 1 ML VIAL IV PUSH PRN ×2 (00:59→22:18)
[2019-04-26] MEDS: Ondansetron INJ* 2 MG/ML VIAL IV PRN ×2 (03:14→20:34)
[2019-04-26] MEDS: Morphine INJ* 2 MG/ML 1 ML SYRINGE (TWO MG - NEW SYRINGE VERSION) IV PRN ×3 (03:14→20:34)
[2019-04-26] MEDS: Lactated Ringers 1000 ML Bag* 1,000 ML IV SCH ×2 (05:59→17:57)
[2019-04-26] MEDS: PROCHLORPERAZINE INJ 5 MG/ML 2 ML VIAL IV PRN ×2 (09:33→22:18)
[2019-04-26] MEDS: Methylnaltrexone SQ (NF) 12 MG/0.6 ML VIAL SUBCUT SCH (09:33)
[2019-04-26] MEDS: Pantoprazole IV* 40 MG IV SCH (09:33)
[2019-04-26] MEDS: Citalopram TAB* 20 MG PO SCH (09:34)
[2019-04-26] MEDS: Gabapentin CAP(*) 300 MG PO SCH ×3 (09:34→22:04)
[2019-04-26] MEDS: Baclofen TAB* 10 MG PO SCH ×2 (09:34→22:04)
[2019-04-26] MEDS: Topiramate TAB(*) 25 MG PO SCH (09:34)
[2019-04-26] MEDS: Tamsulosin CAP* 0.4 MG PO SCH (09:34)
--- NOTE | 2019-04-26 11:41 | PN ---
Subjective Date of Service: 04/26/19 Interval History: Mr. Cali is seen in room with family members at bedside. He appears to be in better spirits today. He c/o of mild L abdominal pain and points to small surgical incisions as source of pain. Also c/o L buttock pain. Mother reports he has been passing flatus, but no BM as of yet. Patient reports that he is hungry. No other complaints today. Family History: Unchanged from Admission Social History: Unchanged from Admission Past Medical History: Unchanged from Admission Objective Active Medications: Acetaminophen (Tylenol Tab*) 650 mg PO Q4H PRN PRN Reason: PAIN-MILD/TEMP >/= 100.4 Baclofen (Lioresal Tab*) 10 mg PO BID COUNT INCLUDES THE [facility] Last Admin: 04/26/19 09:34 Dose: 10 mg Bisacodyl (Dulcolax Supp*) 10 mg OR DAILY COUNT INCLUDES THE [facility] Citalopram Hydrobromide (Celexa Tab*) 20 mg PO DAILY COUNT INCLUDES THE [facility] Last Admin: 04/26/19 09:34 Dose: 20 mg Enoxaparin Sodium (Lovenox(*)) 40 mg SUBCUT Q24H COUNT INCLUDES THE [facility] Last Admin: 04/25/19 21:41 Dose: 40 mg Gabapentin (Neurontin Cap(*)) 300 mg PO TID COUNT INCLUDES THE [facility] Last Admin: 04/26/19 09:34 Dose: 300 mg Levetiracetam 250 mg/ Sodium (Chloride) 102.5 mls @ 410 mls/hr IVPB Q12H COUNT INCLUDES THE [facility] Last Admin: 04/26/19 00:58 Dose: 410 mls/hr Lactated Ringer's (Lactated Ringers 1000 Ml Bag*) 1,000 mls @ 125 mls/hr IV PER RATE COUNT INCLUDES THE [facility] Last Admin: 04/26/19 05:59 Dose: 125 mls/hr Ketorolac Tromethamine (Toradol Inj*) 30 mg IV PUSH Q6H PRN PRN Reason: PAIN - MODERATE Last Admin: 04/26/19 00:59 Dose: 30 mg Methylnaltrexone [place] (Relistor Sq (Nf)) 12 mg SUBCUT DAILY COUNT INCLUDES THE [facility]; Protocol Last Admin: 04/26/19 09:33 Dose: 12 mg Morphine Sulfate (Morphine Inj (Syringe))*) 2 mg IV Q2H PRN PRN Reason: MODERATELY SEVERE PAIN Last Admin: 04/26/19 09:32 Dose: 2 mg Morphine Sulfate (Morphine Inj (Syringe)*) 4 mg IV Q2H PRN PRN Reason: MORE SEVERE PAIN Ondansetron HCl (Zofran Inj*) 4 mg IV Q6H PRN PRN Reason: NAUSEA Last Admin: 04/26/19 03:14 Dose: 4 mg Pantoprazole Sodium (Protonix Iv*) 40 mg IV Q24HR COUNT INCLUDES THE [facility] Last Admin: 04/26/19 09:33 Dose: 40 mg Prochlorperazine Edisylate (Compazine Inj*) 10 mg IV Q6H PRN PRN Reason: NAUSEA/VOMITING Last Admin: 04/26/19 09:33 Dose: 10 mg Tamsulosin HCl (Flomax Cap*) 0.4 mg PO DAILY COUNT INCLUDES THE [facility] Last Admin: 04/26/19 09:34 Dose: 0.4 mg Topiramate (Topamax(*)) 100 mg PO BEDTIME COUNT INCLUDES THE [facility] Last Admin: 04/25/19 20:19 Dose: 100 mg Topiramate (Topamax(*)) 50 mg PO QAM COUNT INCLUDES THE [facility] Last Admin: 04/26/19 09:34 Dose: 50 mg Vital Signs: Temp Pulse Resp BP Pulse Ox 97.4 F 74 20 133/81 96 04/26/19 03:07 04/26/19 03:07 04/26/19 09:34 04/26/19 03:07 04/26/19 03:07 Oxygen Devices in Use Now: None Appearance: Mr. Cali is an obese middle-aged black man who is laying on his R side in bed. He appears to be in no acute distress at this time. Ears/Nose/Mouth/Throat: NL Teeth, Lips, Gums, Clear Oropharnyx, Mucous Membranes Moist Neck: NL Appearance and Movements; NL JVP, Trachea Midline Respiratory: Symmetrical Chest Expansion and Respiratory Effort, Clear to Auscultation - anteriorly Cardiovascular: NL Sounds; No Murmurs; No JVD, RRR, No Edema Abdominal: - - BS normoactive throughout; abdomen distended; nontender to palpation; 2 approximated surgical incision sites at L abdomen without drainage Extremities: No Edema, No Clubbing, Cyanosis Skin: No Rash or Ulcers, No Nodules or Sclerosis Result Diagrams: 04/25/19 08:05 04/25/19 08:05 Microbiology and Other Data: Microbiology 04/16/19 15:32 Aerobic Blood Culture - Preliminary Blood Venous No Growth Day 1 Anaerobic Blood Culture - Preliminary No Growth Day 1 04/16/19 15:30 Aerobic Blood Culture - Preliminary Blood Venous No Growth Day 1 Anaerobic Blood Culture - Preliminary No Growth Day 1 Assess/Plan/Problems-Billing Assessment: Mr. 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 - Patient Problems (1) Bowel obstruction Comment: - Tolerated solids 04/22, but then had recurrent emesis overnight - SBO vs ileus; history of hernia repair only; opiates and constipation likely contributing - NG tube removed 04/21; reinserted 04/23 - Hold opiates - Abdominal XR 04/24: no significant change - Appreciate Surgery consult - Exploratory lap reveals no SBO; lysis of adhesions performed - NPO except meds - Continue laxatives, methylnaltrexone - Continue conservative treatment (2) Seizure disorder Comment: -possible seizure with missed dose to Topamax 04/20, recurred overnight 04/24 -pt usually takes topiramate 50 a.m., 100 p.m.; while inpatient, only taking 100 bedtime -malabsorption in setting of SBO probably contributing -neurology consulted; thank you for recommendations -patient placed on Keppra IV while NPO; d/c once tolerating PO -Topamax level pending -continue Topamax at home dose, gabapentin (3) Acute buttock pain Comment: - intermittent c/o pain in L buttock - MRI without signs of osteo or joint infection - CRP not declining, unclear significance; no other signs of worsening; possibly related to current abdominal pathology - D/c clinda per ID; no need for any further abx (4) Hypoxia Comment: - Resolved - now saturating well on room air - With Bibasilar infiltrates and vomiting, likely aspiration pneumonitis - afebrile, no leukocytosis - no indication for further antibiotics at this time - continue to monitor (5) History of CVA with residual deficit Comment: - Expressive aphasia and right sided weakenss - Continue aspirin, atorvastatin (6) DVT prophylaxis Comment: - Lovenox (7) Full code status Comment: Status and Disposition: Inpatient. Anticipate d/c home when medically stable.
--- NOTE | 2019-04-26 11:52 | PN ---
Progress Note - Progress Note Date of Service: 04/26/19 SOAP: Subjective: NAD C/O NG tube + Flatus - BM Mother and Son at bedside [] Objective: Vital Signs Temp 97.4 F 04/26/19 03:07 Pulse 74 04/26/19 03:07 Resp 20 04/26/19 09:34 BP 133/81 04/26/19 03:07 Pulse Ox 96 04/26/19 03:07 Intake & Output 04/25/19 04/26/19 04/26/19 18:59 06:59 18:59 Intake Total 1697 0 Output Total 1000 865 Balance 697 -865 Intake: IV Fluids 1412 D5W 1/2 NS 237 LR 800 NS (0.9%) 375 IVPB 105 Keppra 105 Oral 160 0 NG Tube Irrigate Amount 20 Output: NG Tube Drainage Amount 750 Urine 250 865 Other: Estimated Void Medium # Bowel Movements 0 # Voids 1 1 PEX GEN: NAD Chest: CTA CVS: RRR Abd: obese, Non Tender, distended, incisions C/D/I LLE: calf soft non tender RLE: AKA [] Assessment: POD 1 s/p ex lap for sbo/VIRGIL. NGT with clear output, + Flatus [] Plan: Dulcolax suppository. Keep NG tube until return of bowel function. Observation. D/W Dr Meyers []
[2019-04-26] MEDS: Topiramate TAB(*) 100 MG PO SCH (22:04)
[2019-04-26] MEDS: Enoxaparin(*) 40 MG/0.4 ML SYR SUBCUT SCH (22:06)
[2019-04-27] MEDS: Morphine INJ* 2 MG/ML 1 ML SYRINGE (TWO MG - NEW SYRINGE VERSION) IV PRN ×2 (01:22→09:19)
[2019-04-27] MEDS: Lactated Ringers 1000 ML Bag* 1,000 ML IV SCH ×3 (02:23→22:51)
--- NOTE | 2019-04-27 10:00 | PN ---
Subjective Date of Service: 04/27/19 Interval History: Mr. Cali is seen in his room. He is aphasic and therefore has difficulty with communication. Carlos/o L abdominal pain with associated nausea. He denies vomiting, BM, although nursing reports patient had a BM yesterday. He had a dulcolax suppository last night. Family History: Unchanged from Admission Social History: Unchanged from Admission Past Medical History: Unchanged from Admission Objective Active Medications: Acetaminophen (Tylenol Tab*) 650 mg PO Q4H PRN PRN Reason: PAIN-MILD/TEMP >/= 100.4 Baclofen (Lioresal Tab*) 10 mg PO BID [facility] Last Admin: 04/26/19 22:04 Dose: 10 mg Bisacodyl (Dulcolax Supp*) 10 mg AR BID [facility] Last Admin: 04/26/19 22:07 Dose: 10 mg Citalopram Hydrobromide (Celexa Tab*) 20 mg PO DAILY [facility] Last Admin: 04/26/19 09:34 Dose: 20 mg Enoxaparin Sodium (Lovenox(*)) 40 mg SUBCUT Q24H [facility] Last Admin: 04/26/19 22:06 Dose: 40 mg Gabapentin (Neurontin Cap(*)) 300 mg PO TID [facility] Last Admin: 04/26/19 22:04 Dose: 300 mg Levetiracetam 250 mg/ Sodium (Chloride) 102.5 mls @ 410 mls/hr IVPB Q12H [facility] Last Admin: 04/26/19 23:45 Dose: 410 mls/hr Lactated Ringer's (Lactated Ringers 1000 Ml Bag*) 1,000 mls @ 125 mls/hr IV PER RATE [facility] Last Admin: 04/27/19 02:23 Dose: 125 mls/hr Methylnaltrexone [place] (Relistor Sq (Nf)) 12 mg SUBCUT DAILY [facility]; Protocol Last Admin: 04/26/19 09:33 Dose: 12 mg Morphine Sulfate (Morphine Inj (Syringe))*) 2 mg IV Q2H PRN PRN Reason: MODERATELY SEVERE PAIN Last Admin: 04/27/19 09:19 Dose: 2 mg Morphine Sulfate (Morphine Inj (Syringe)*) 4 mg IV Q2H PRN PRN Reason: MORE SEVERE PAIN Ondansetron HCl (Zofran Inj*) 4 mg IV Q6H PRN PRN Reason: NAUSEA Last Admin: 04/26/19 20:34 Dose: 4 mg Pantoprazole Sodium (Protonix Iv*) 40 mg IV Q24HR [facility] Last Admin: 04/26/19 09:33 Dose: 40 mg Prochlorperazine Edisylate (Compazine Inj*) 10 mg IV Q6H PRN PRN Reason: NAUSEA/VOMITING Last Admin: 04/26/19 22:18 Dose: 10 mg Tamsulosin HCl (Flomax Cap*) 0.4 mg PO DAILY [facility] Last Admin: 04/26/19 09:34 Dose: 0.4 mg Topiramate (Topamax(*)) 100 mg PO BEDTIME [facility] Last Admin: 04/26/19 22:04 Dose: 100 mg Topiramate (Topamax(*)) 50 mg PO QAM [facility] Last Admin: 04/26/19 09:34 Dose: 50 mg Vital Signs: Temp Pulse Resp BP Pulse Ox 97.1 F 71 22 139/74 97 04/27/19 08:30 04/27/19 08:30 04/27/19 09:19 04/27/19 08:30 04/27/19 08:30 Oxygen Devices in Use Now: None Appearance: Mr. Cali is a middle-aged black male who is laying on his R side in bed. He is diaphoretic, appears uncomfortable, and is moaning. Ears/Nose/Mouth/Throat: - - Dry oral mucosa Neck: NL Appearance and Movements; NL JVP, Trachea Midline Respiratory: Symmetrical Chest Expansion and Respiratory Effort, Clear to Auscultation - anteriorly Cardiovascular: NL Sounds; No Murmurs; No JVD, RRR, No Edema Abdominal: - - Abdomen distended; 3 approximated surgical incision sites on L abdomen without drainage; bowel sounds hypoactive; L abdomen mildly tender to palpation Extremities: No Edema, No Clubbing, Cyanosis, - - R AKA Result Diagrams: 04/25/19 08:05 04/25/19 08:05 Microbiology and Other Data: Microbiology 04/16/19 15:32 Aerobic Blood Culture - Preliminary Blood Venous No Growth Day 1 Anaerobic Blood Culture - Preliminary No Growth Day 1 04/16/19 15:30 Aerobic Blood Culture - Preliminary Blood Venous No Growth Day 1 Anaerobic Blood Culture - Preliminary No Growth Day 1 Assess/Plan/Problems-Billing Assessment: Mr. 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 - Patient Problems (1) Bowel obstruction Comment: - Tolerated solids 04/22, but then had recurrent emesis overnight - SBO vs ileus; history of hernia repair only; opiates and constipation likely contributing - NG tube removed 04/21; reinserted 04/23 - Hold opiates - Abdominal XR 04/24: no significant change - Appreciate Surgery consult - Exploratory lap reveals no SBO; lysis of adhesions performed - NPO except meds - Continue laxatives, methylnaltrexone - Continue conservative treatment - reportedly had BM yesterday, but further details unavailable - repeat suppository BID - plan for midline today, PPN tomorrow (2) Seizure disorder Comment: -possible seizure with missed dose to Topamax 04/20, recurred overnight 04/24 -pt usually takes topiramate 50 a.m., 100 p.m.; while inpatient, only taking 100 bedtime -resume home doses -malabsorption in setting of SBO probably contributing -neurology consulted; thank you for recommendations -patient placed on Keppra IV while NPO; d/c once tolerating PO -Topamax level pending -continue Topamax at home dose, gabapentin (3) Acute buttock pain Comment: - intermittent c/o pain in L buttock - MRI without signs of osteo or joint infection - CRP not declining, unclear significance; no other signs of worsening; possibly related to current abdominal pathology - D/c clinda per ID; no need for any further abx (4) Hypoxia Comment: - Resolved - now saturating well on room air - With Bibasilar infiltrates and vomiting, likely aspiration pneumonitis - afebrile, no leukocytosis - no indication for further antibiotics at this time - continue to monitor (5) History of CVA with residual deficit Comment: - Expressive aphasia and right sided weakenss - Continue aspirin, atorvastatin (6) DVT prophylaxis Comment: - Lovenox (7) Full code status Comment: Status and Disposition: Inpatient. Anticipate d/c home when medically stable.
--- NOTE | 2019-04-27 10:05 | PN ---
Progress Note - Progress Note Date of Service: 04/27/19 Note: S: Reports poorly localized abdominal discomfort. Producing flatus. Tells me that he has passed BM today, though I & Os unclear on bowel voiding. Reports intermittent nausea. O: Vital Signs - 8 hr 04/27/19 04/27/19 04/27/19 02:11 02:35 08:30 Temperature 97.3 F 97.1 F Pulse Rate 72 71 Respiratory 18 14 16 Rate Blood Pressure 127/72 139/74 (mmHg) O2 Sat by Pulse 93 97 Oximetry 04/27/19 04/27/19 08:32 09:19 Temperature Pulse Rate Respiratory 18 22 Rate Blood Pressure (mmHg) O2 Sat by Pulse Oximetry Intake and Output Last 24 Hours 04/25/19 04/26/19 04/27/19 04/28/19 06:59 06:59 06:59 06:59 Intake Total 2937 1697 3015 847 Output Total 1500 1865 970 200 Balance 1437 -168 2045 647 Intake: IV Fluids 1727 1412 2705 847 D5W 1/2 NS 237 LR 800 2705 847 NS (0.9%) 1727 375 IVPB 1200 105 310 Keppra 105 310 NS (0.9%) 1000 potassium 200 Oral 0 160 0 NG Tube Irrigate Amount 10 20 Output: NG Tube Drainage Amount 1300 750 Urine 200 1115 970 200 Other: Estimated Void Medium Large # Bowel Movements 0 0 Estimated Stool Amount Small Large # Voids 1 1 1 Laboratory Last Values WBC 9.7 10^3/uL (3.5-10.8) 04/25/19 08:05 RBC 5.03 10^6 /uL (4.18-5.48) 04/25/19 08:05 Hgb 14.4 g/dL (14.0-18.0) 04/25/19 08:05 Hct 43 % (42-52) 04/25/19 08:05 MCV 86 fL (80-94) 04/25/19 08:05 MCH 29 pg (27-31) 04/25/19 08:05 MCHC 33 g/dL (31-36) 04/25/19 08:05 RDW 15 % (10-15) 04/25/19 08:05 Plt Count 492 10^3/uL (150-450) H 04/25/19 08:05 MPV 7.9 fL (7.4-10.4) 04/25/19 08:05 Neut % (Auto) 68.4 % 04/25/19 08:05 Lymph % (Auto) 20.9 % 04/25/19 08:05 [place] % (Auto) 7.9 % 04/25/19 08:05 Eos % (Auto) 2.4 % 04/25/19 08:05 Baso % (Auto) 0.4 % 04/25/19 08:05 Absolute Neuts (auto) 6.7 10^3/ul (1.5-7.7) 04/25/19 08:05 Absolute Lymphs (auto) 2.0 10^3/ul (1.0-4.8) 04/25/19 08:05 Absolute Monos (auto) 0.8 10^3/ul (0-0.8) 04/25/19 08:05 Absolute Eos (auto) 0.2 10^3/ul (0-0.6) 04/25/19 08:05 Absolute Basos (auto) 0.0 10^3/ul (0-0.2) 04/25/19 08:05 Absolute Nucleated RBC 0.0 10^3/ul 04/25/19 08:05 Nucleated RBC % 0.0 04/25/19 08:05 Sodium 138 mmol/L (135-145) 04/25/19 08:05 Potassium 3.8 mmol/L (3.5-5.0) 04/25/19 08:05 Chloride 110 mmol/L (101-111) 04/25/19 08:05 Carbon Dioxide 19 mmol/L (22-32) L 04/25/19 08:05 Anion Gap 9 mmol/L (2-11) 04/25/19 08:05 BUN 26 mg/dL (6-24) H 04/25/19 08:05 Creatinine 0.93 mg/dL (0.67-1.17) 04/25/19 08:05 Est GFR ( Amer) 102.1 (>60) 04/25/19 08:05 Est GFR (Non-Af Amer) 84.4 (>60) 04/25/19 08:05 BUN/Creatinine Ratio 28.0 (8-20) H 04/25/19 08:05 Glucose 125 mg/dL (70-100) H 04/25/19 08:05 POC Glucose (mg/dL) 97 mg/dL (70-100) 04/26/19 16:39 Calcium 8.4 mg/dL (8.6-10.3) L 04/25/19 08:05 Magnesium 2.2 mg/dL (1.9-2.7) 04/25/19 08:05 Total Bilirubin 0.70 mg/dL (0.2-1.0) 04/15/19 14:33 AST 15 U/L (13-39) 04/15/19 14:33 ALT 21 U/L (7-52) 04/15/19 14:33 Alkaline Phosphatase 76 U/L (34-104) 04/15/19 14:33 C-Reactive Protein 197.92 mg/L (<8.01) H 04/21/19 05:48 Total Protein 7.9 g/dL (6.4-8.9) 04/15/19 14:33 Albumin 3.7 g/dL (3.2-5.2) 04/15/19 14:33 Globulin 4.2 g/dL (2-4) H 04/15/19 14:33 Albumin/Globulin Ratio 0.9 (1-3) L 04/15/19 14:33 Urine Color Yellow 04/16/19 16:16 Urine Appearance Clear 04/16/19 16:16 Urine pH 7.0 (5-9) 04/16/19 16:16 Ur Specific [place] 1.018 (1.010-1.030) 04/16/19 16:16 Urine Protein 1+(30 mg/dl) (Negative) A 04/16/19 16:16 Urine Ketones Negative (Negative) 04/16/19 16:16 Urine Blood Negative (Negative) 04/16/19 16:16 Urine Nitrate Negative (Negative) 04/16/19 16:16 Urine Bilirubin Negative (Negative) 04/16/19 16:16 Urine Urobilinogen Negative (Negative) 04/16/19 16:16 Ur Leukocyte Esterase Negative (Negative) 04/16/19 16:16 Urine WBC (Auto) Trace(0-5/hpf) (Absent) 04/16/19 16:16 Urine RBC (Auto) Trace(0-2/hpf) (Absent) 04/16/19 16:16 Ur Squamous Epith Cells Present (Absent) A 04/16/19 16:16 Urine Bacteria Absent (Absent) 04/16/19 16:16 Urine Glucose Negative (Negative) 04/16/19 16:16 PEX General: Alert, in NAD. Integumentary: No rashes, jaundice, lesions. HEENT: NG tube in place. PERRLA. Oropharynx clear. Heart: RRR. Lungs: CTAB. ABD: Obese. BS present. Distended, mild diffuse tenderness. Incisions C/D/I. Extremities: Calf soft and nontender. Distal pulses intact. Right leg AKA. Assessment and plan: 53 yo M POD 2 s/p ex lap for SBO/VIRGIL. Passing flatus, questionable BM today. NG tub with clear output. Continue dulcolax suppository. Continue NG tube at this time, until a BM has clearly passed.
[2019-04-27] MEDS: levETIRAcetam IV* 250 MG in NS 0.9% 100 ML* 100 ML IVPB SCH (13:13)
[2019-04-27] MEDS: Citalopram TAB* 20 MG PO SCH (13:15)
[2019-04-27] MEDS: Gabapentin CAP(*) 300 MG PO SCH ×3 (13:15→22:02)
[2019-04-27] MEDS: Tamsulosin CAP* 0.4 MG PO SCH (13:15)
[2019-04-27] MEDS: Topiramate TAB(*) 25 MG PO SCH (13:15)
[2019-04-27] MEDS: Methylnaltrexone SQ (NF) 12 MG/0.6 ML VIAL SUBCUT SCH (13:16)
[2019-04-27] MEDS: Pantoprazole IV* 40 MG IV SCH (13:16)
[2019-04-27] MEDS: Baclofen TAB* 10 MG PO SCH ×2 (13:45→22:04)
[2019-04-27] MEDS: Topiramate TAB(*) 100 MG PO SCH (22:08)
[2019-04-27] MEDS: Enoxaparin(*) 40 MG/0.4 ML SYR SUBCUT SCH (22:10)
[2019-04-28] MEDS: levETIRAcetam IV* 250 MG in NS 0.9% 100 ML* 100 ML IVPB SCH ×3 (00:26→23:46)
[2019-04-28] MEDS: Acetaminophen TAB* 325 MG PO PRN (05:00)
[2019-04-28 05:35] LABS: ABS Eosinophils 0.3 10^3/ul (0-0.6); ABS Monocytes 0.4 10^3/ul (0-0.8); ABS Neutrophils 5.1 10^3/ul (1.5-7.7); Eosinophil % 3.3 %; Hematocrit 36 % (42-52); Hemoglobin 12.5 g/dL (14.0-18.0); Lymphocyte % 25.2 %; Mean Corpuscular HGB Conc 35 g/dL (31-36); Mean Corpuscular Hemoglobin 29 pg (27-31); Mean Corpuscular Volume 84 fL (80-94); Mean Platelet Volume 7.9 fL (7.4-10.4); Platelet Count 400 10^3/uL (150-450); Red Blood Count 4.25 10^6 /uL (4.18-5.48); Red Cell Distribution Width 15 % (10-15); White Blood Count 7.8 10^3/uL (3.5-10.8)
[2019-04-28 06:01] LABS: Calcium 8.2 mg/dL (8.6-10.3); Magnesium 1.7 mg/dL (1.9-2.7); Potassium 3.4 mmol/L (3.5-5.0)
[2019-04-28 06:07] LABS: BUN/Creatinine Ratio 12.9 (8-20); C Reactive Protein 19.24 mg/L (<8.01); EGFR African American 113.2 (>60); EGFR Non-African American 93.6 (>60); Phosphorus 2.9 mg/dL (2.5-5.0)
[2019-04-28] MEDS ORDERED: Magnesium Sulfate 2 GM IV* 2 GM/50 ML BAG IVPB ONE (07:13)
[2019-04-28] MEDS ORDERED: KCL 20 MEQ/100 ML IVPREMIX* 20 MEQ/100 ML BAG IV ONE (07:13)
[2019-04-28] MEDS: Gabapentin CAP(*) 300 MG PO SCH ×3 (08:07→23:44)
[2019-04-28] MEDS: Tamsulosin CAP* 0.4 MG PO SCH (08:07)
[2019-04-28] MEDS: Topiramate TAB(*) 25 MG PO SCH (08:07)
[2019-04-28] MEDS: Citalopram TAB* 20 MG PO SCH (08:08)
[2019-04-28] MEDS: Baclofen TAB* 10 MG PO SCH ×3 (08:08→23:44)
[2019-04-28] MEDS: Pantoprazole IV* 40 MG IV SCH (08:08)
[2019-04-28] MEDS: Lactated Ringers 1000 ML Bag* 1,000 ML IV SCH ×2 (08:31→19:45)
--- NOTE | 2019-04-28 10:11 | PN ---
Subjective Date of Service: 04/28/19 Interval History: Mr. Cali states he has been having liquid BMs. He has expressive aphasia, therefore it is difficult to get accurate information; for instance, he both agrees to and denies abdominal pain. He states he is hungry. Family History: Unchanged from Admission Social History: Unchanged from Admission Past Medical History: Unchanged from Admission Objective Active Medications: Acetaminophen (Tylenol Tab*) 650 mg PO Q4H PRN PRN Reason: PAIN-MILD/TEMP >/= 100.4 Last Admin: 04/28/19 05:00 Dose: 650 mg Baclofen (Lioresal Tab*) 10 mg PO BID [facility] Last Admin: 04/28/19 08:08 Dose: Not Given Bisacodyl (Dulcolax Supp*) 10 mg PA BID [facility] Last Admin: 04/28/19 08:08 Dose: 10 mg Citalopram Hydrobromide (Celexa Tab*) 20 mg PO DAILY [facility] Last Admin: 04/28/19 08:08 Dose: 20 mg Enoxaparin Sodium (Lovenox(*)) 40 mg SUBCUT Q24H [facility] Last Admin: 04/27/19 22:10 Dose: 40 mg Gabapentin (Neurontin Cap(*)) 300 mg PO TID [facility] Last Admin: 04/28/19 08:07 Dose: 300 mg Heparin Sodium (Porcine) (Heparin Flush Picc/Ml/Cvc(*)) 1 - 3 ml FLUSH 0600, 1800 [facility]; Protocol Last Admin: 04/28/19 04:50 Dose: Not Given Levetiracetam 250 mg/ Sodium (Chloride) 102.5 mls @ 410 mls/hr IVPB Q12H [facility] Last Admin: 04/28/19 00:26 Dose: 410 mls/hr Lactated Ringer's (Lactated Ringers 1000 Ml Bag*) 1,000 mls @ 125 mls/hr IV PER RATE [facility] Last Admin: 04/28/19 08:31 Dose: 125 mls/hr Dextrose 1,000 ml/ Amino Acids 850 ml/ Sterile Water 150 ml/Fat Emulsion Intravenous 500 ml/ Sodium Chloride 100 meq/Potassium Chloride 50 meq/Potassium Phosphate 15 mmole/Calcium Gluconate 15 meq/Magnesium Sulfate 10 meq/ Multivitamins 10 ml/ Trace Metals 1 ml/ Nutrition ( Parenteral) 2,600.721 mls @ 108.422 mls/hr IV 1700 [facility] Ondansetron HCl (Zofran Inj*) 4 mg IV Q6H PRN PRN Reason: NAUSEA Last Admin: 04/26/19 20:34 Dose: 4 mg Pantoprazole Sodium (Protonix Iv*) 40 mg IV Q24HR [facility] Last Admin: 04/28/19 08:08 Dose: 40 mg Prochlorperazine Edisylate (Compazine Inj*) 10 mg IV Q6H PRN PRN Reason: NAUSEA/VOMITING Last Admin: 04/26/19 22:18 Dose: 10 mg Tamsulosin HCl (Flomax Cap*) 0.4 mg PO DAILY [facility] Last Admin: 04/28/19 08:07 Dose: 0.4 mg Topiramate (Topamax(*)) 100 mg PO BEDTIME [facility] Last Admin: 04/27/19 22:08 Dose: 100 mg Topiramate (Topamax(*)) 50 mg PO QAM [facility] Last Admin: 04/28/19 08:07 Dose: 50 mg Vital Signs: Temp Pulse Resp BP Pulse Ox 98.4 F 74 16 144/77 100 04/28/19 03:22 04/28/19 03:22 04/28/19 08:07 04/28/19 03:22 04/28/19 03:22 Oxygen Devices in Use Now: None Appearance: Mr. Cali is a middle-aged black male who is sitting up in bed. He appears comfortable, in no acute distress. He appears well today. Eyes: No Scleral Icterus, PERRLA Ears/Nose/Mouth/Throat: NL Teeth, Lips, Gums, Clear Oropharnyx, - - mildly dry oral mucosa Neck: NL Appearance and Movements; NL JVP, Trachea Midline Respiratory: Symmetrical Chest Expansion and Respiratory Effort, Clear to Auscultation - anteriorly Cardiovascular: NL Sounds; No Murmurs; No JVD, RRR, No Edema Abdominal: - - abdominal distention; L abdomen surgical sites approximated without drainage; bowel sounds hypoactive; nontender to palpation Extremities: No Edema, No Clubbing, Cyanosis, - - R AKA Neurological: Alert and Oriented x 3 Result Diagrams: 04/28/19 05:19 04/28/19 05:19 Microbiology and Other Data: Microbiology 04/16/19 15:32 Aerobic Blood Culture - Preliminary Blood Venous No Growth Day 1 Anaerobic Blood Culture - Preliminary No Growth Day 1 04/16/19 15:30 Aerobic Blood Culture - Preliminary Blood Venous No Growth Day 1 Anaerobic Blood Culture - Preliminary No Growth Day 1 Assess/Plan/Problems-Billing Assessment: Mr. 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 - Patient Problems (1) Bowel obstruction Comment: - Tolerated solids 04/22, but then had recurrent emesis overnight - SBO vs ileus; history of hernia repair only; opiates and constipation likely contributing - NG tube removed 04/21; reinserted 04/23 - Hold opiates - Abdominal XR 04/24: no significant change - Appreciate Surgery consult - Exploratory lap reveals no SBO; lysis of adhesions performed - having BMs - midline in place; planned for PPN starting today, but patient clinically improving - d/c NGT and plan for full liquid diet (2) Seizure disorder Comment: -possible seizure with missed dose to Topamax 04/20, recurred overnight 04/24 -pt usually takes topiramate 50 a.m., 100 p.m.; while inpatient, only taking 100 bedtime -resume home doses -malabsorption in setting of SBO probably contributing -neurology consulted; thank you for recommendations -Topamax level pending -continue Topamax at home dose, gabapentin -patient placed on Keppra IV while NPO; d/c once tolerating PO (3) Acute buttock pain Comment: - intermittent c/o pain in L buttock - MRI without signs of osteo or joint infection - CRP not declining, unclear significance; no other signs of worsening; possibly related to current abdominal pathology - D/c clinda per ID; no need for any further abx (4) History of CVA with residual deficit Comment: - Expressive aphasia and right sided weakenss - Continue aspirin, atorvastatin (5) DVT prophylaxis Comment: - Lovenox (6) Full code status Comment: Status and Disposition: Inpatient. Anticipate d/c home when medically stable.
[2019-04-28] MEDS: Ondansetron INJ* 2 MG/ML VIAL IV PRN ×2 (12:46→17:16)
--- NOTE | 2019-04-28 13:07 | PN ---
Progress Note - Progress Note Date of Service: 04/28/19 Note: Patient has no complaints. Reports some pain over incisions. Denies chest pain or SOB. Feels hungry. BM this morning. Vital Signs - 12 hr Temp Pulse Resp BP Pulse Ox 04/28/19 10:00 16 04/28/19 08:07 16 04/28/19 07:45 16 04/28/19 07:42 97.5 F 72 17 142/79 100 04/28/19 03:22 98.4 F 74 18 144/77 100 Intake & Output 04/27/19 04/28/19 04/28/19 22:59 06:59 14:59 Intake Total 0 3542 Output Total 1225 575 Balance -1225 2967 General: NAD Resp: Clear to auscultation CV: RRR Abdomen: Soft, obese, mild tenderness over laparoscopic incisions. Incisions c/d /i. Extremities: R AKA. LLE warm. Neuro: Alert and awake. Laboratory Results - last 24 hr 04/27/19 04/28/19 04/28/19 16:48 05:19 05:19 WBC 7.8 RBC 4.25 Hgb 12.5 L Hct 36 L MCV 84 MCH 29 MCHC 35 RDW 15 Plt Count 400 MPV 7.9 Neut % (Auto) 66.1 Lymph % (Auto) 25.2 [place] % (Auto) 4.8 Eos % (Auto) 3.3 Baso % (Auto) 0.6 Absolute Neuts (auto) 5.1 Absolute Lymphs (auto) 2.0 Absolute Monos (auto) 0.4 Absolute Eos (auto) 0.3 Absolute Basos (auto) 0.0 Absolute Nucleated RBC 0.0 Nucleated RBC % 0.0 Sodium 134 L Potassium 3.4 L Chloride 106 Carbon Dioxide 21 L Anion Gap 7 BUN 11 Creatinine 0.85 Est GFR ( Amer) 113.2 Est GFR (Non-Af Amer) 93.6 BUN/Creatinine Ratio 12.9 Glucose 92 POC Glucose (mg/dL) 91 Calcium 8.2 L Phosphorus 2.9 Magnesium 1.7 L C-Reactive Protein 19.24 H 53M with SBO s/p dx lap which was unremarkable. Patient appears to have return of bowel function. -D/c NG -Advance to full liquids as tolerated. Consider advance to soft diet later today or tomorrow -D/c IVF when taking in adequate oral intake.
[2019-04-28] MEDS ORDERED: Morphine INJ* 2 MG/ML 1 ML SYRINGE (TWO MG - NEW SYRINGE VERSION) IV ONE (14:57)
[2019-04-28] MEDS: PROCHLORPERAZINE INJ 5 MG/ML 2 ML VIAL IV PRN (15:19)
[2019-04-28] MEDS: Scopolamine 1.5 mg* PATCH TRANSDERM SCH (16:10)
[2019-04-28] MEDS ORDERED: TPN* 24 HR with D10W 1000 ML BAG* 1,000 ML, Amino Acid Infusion 10%* 850 ML, Sterile Wa... IV SCH ×12 (17:00)
--- NOTE | 2019-04-28 17:16 | PN ---
Hospitalist Progress Note Date of Service: 04/28/19 Mr. Cali c/o abdominal pain, nausea, no vomiting. He ate small amount of cream of wheat at breakfast, appx 200cc of lunch. No relief with zofran, compazine. Plan: -place scopolamine patch -diet change to ice chips -repeat abdomen XR -if develops emesis, plan for NGT placement
[2019-04-28] MEDS ORDERED: Metoclopramide TAB* 10 MG PO SCH (18:00)
[2019-04-28] MEDS ORDERED: Benzocaine/Butamben/Tetracain (CETACAINE - SINGLE USE) 5 gm TOPICAL PRN (19:58)
[2019-04-28] MEDS: Enoxaparin(*) 40 MG/0.4 ML SYR SUBCUT SCH (23:35)
[2019-04-28] MEDS: Metoclopramide IV* 5 MG/ML 2 ML VIAL IV SCH (23:39)
[2019-04-28] MEDS: Topiramate TAB(*) 100 MG PO SCH (23:43)
[2019-04-29] MEDS ORDERED: Ketorolac INJ* 30 MG/ML 1 ML VIAL IV PUSH ONE (02:35)
[2019-04-29] MEDS: Lactated Ringers 1000 ML Bag* 1,000 ML IV SCH ×2 (04:45→19:39)
[2019-04-29] MEDS: Metoclopramide IV* 5 MG/ML 2 ML VIAL IV SCH ×4 (04:48→22:53)
[2019-04-29 06:14] LABS: ABS Basophils 0.1 10^3/ul (0-0.2); ABS Eosinophils 0.1 10^3/ul (0-0.6); ABS Monocytes 0.6 10^3/ul (0-0.8); ABS Neutrophils 14.3 10^3/ul (1.5-7.7); Eosinophil % 0.5 %; Hematocrit 39 % (42-52); Hemoglobin 13.2 g/dL (14.0-18.0); Lymphocyte % 11.5 %; Mean Corpuscular HGB Conc 34 g/dL (31-36); Mean Corpuscular Hemoglobin 28 pg (27-31); Mean Corpuscular Volume 84 fL (80-94); Mean Platelet Volume 7.8 fL (7.4-10.4); Platelet Count 475 10^3/uL (150-450); Red Blood Count 4.69 10^6 /uL (4.18-5.48); Red Cell Distribution Width 15 % (10-15); White Blood Count 17.1 10^3/uL (3.5-10.8)
[2019-04-29 06:29] LABS: Albumin 3.3 g/dL (3.2-5.2); Calcium 8.7 mg/dL (8.6-10.3); Magnesium 1.9 mg/dL (1.9-2.7); Potassium 3.8 mmol/L (3.5-5.0); Total Bilirubin 0.4 mg/dL (0.2-1.0)
[2019-04-29 06:35] LABS: Albumin/Globulin Ratio 0.8 (1-3); BUN/Creatinine Ratio 14.1 (8-20); EGFR Non-African American 78.5 (>60); Phosphorus 3.9 mg/dL (2.5-5.0); Total Protein 7.3 g/dL (6.4-8.9)
--- NOTE | 2019-04-29 10:07 | PN ---
Progress Note - Progress Note Date of Service: 04/29/19 Note: Patient started having nausea and abdominal distension yesterday afternoon. NG tube was eventually replaced last night with a total 500 ml in canister this morning. The patient reports that the nausea is gone and the distension has improved. He denies abdominal pain this morning. Continues to have bowel movements, last one this morning. Vital Signs - 12 hr Temp Pulse Resp BP Pulse Ox 04/29/19 07:45 20 92 04/29/19 07:32 98 F 93 20 130/78 92 04/29/19 06:19 97.4 F 96 19 123/74 94 04/29/19 00:00 100 04/28/19 23:33 98.3 F 110 16 116/94 100 Intake & Output 04/28/19 04/29/19 04/29/19 22:59 06:59 14:59 Intake Total 1322 Output Total 1210 1175 Balance -1210 147 Intake: IV Fluids 1220 LR 1220 IVPB 102 Keppra 102 Oral 0 Output: NG Tube Drainage Amount 900 Urine 560 275 Emesis 650 Other: # Bowel Movements 0 General: NAD. NG draining bilious fluid. CV: RRR Resp: Clear to auscultation. Abd: soft, obese. Distension significantly improved since yesterday. Mild tenderness over incisions. Incisions c/d/i. Extremities: R AKA. LLE warm and no pedal edema Neuro: Answers simple questions, aphasic at baseline. Awake and alert. Psych: Flat affect Laboratory Results - last 24 hr 04/28/19 04/29/19 04/29/19 18:54 06:02 06:02 WBC 17.1 H RBC 4.69 Hgb 13.2 L Hct 39 L MCV 84 MCH 28 MCHC 34 RDW 15 Plt Count 475 H D MPV 7.8 Neut % (Auto) 83.8 Lymph % (Auto) 11.5 [place] % (Auto) 3.8 Eos % (Auto) 0.5 Baso % (Auto) 0.4 Absolute Neuts (auto) 14.3 H Absolute Lymphs (auto) 2.0 Absolute Monos (auto) 0.6 Absolute Eos (auto) 0.1 Absolute Basos (auto) 0.1 Absolute Nucleated RBC 0.0 Nucleated RBC % 0.0 Sodium 137 Potassium 3.8 Chloride 108 Carbon Dioxide 22 Anion Gap 7 BUN 14 Creatinine 0.99 Est GFR ( Amer) 95.0 Est GFR (Non-Af Amer) 78.5 BUN/Creatinine Ratio 14.1 Glucose 117 H Lactic Acid 0.9 Calcium 8.7 Phosphorus 3.9 Magnesium 1.9 Total Bilirubin 0.40 AST 27 ALT 52 Alkaline Phosphatase 75 Total Protein 7.3 Albumin 3.3 Globulin 4.0 Albumin/Globulin Ratio 0.8 L 53M with SBO s/p dx lap which was unremarkable. POD4. Appears to have ileus again. Unclear why he continues to have recurrent obstructive picture. -Consider small bowel follow through to evaluate motility of stomach and small bowel. -NPO. NG to low continuous suction. -IVF
[2019-04-29] MEDS: Pantoprazole IV* 40 MG IV SCH (10:24)
[2019-04-29] MEDS: Tamsulosin CAP* 0.4 MG PO SCH (10:25)
[2019-04-29] MEDS: Gabapentin CAP(*) 300 MG PO SCH ×3 (10:25→23:01)
[2019-04-29] MEDS: Topiramate TAB(*) 25 MG PO SCH (10:25)
[2019-04-29] MEDS: Baclofen TAB* 10 MG PO SCH ×2 (10:26→23:01)
[2019-04-29] MEDS: levETIRAcetam IV* 250 MG in NS 0.9% 100 ML* 100 ML IVPB SCH ×2 (12:02→23:50)
--- NOTE | 2019-04-29 14:30 | PN ---
Subjective Date of Service: 04/29/19 Interval History: Mr. Cali has experienced some relief with NGT replacement. He has decrease in nausea, no vomiting. He continues to have abdominal discomfort. He continues to pass flatus and have loose stool BMs. Family History: Unchanged from Admission Social History: Unchanged from Admission Past Medical History: Unchanged from Admission Objective Active Medications: Acetaminophen (Tylenol Tab*) 650 mg PO Q4H PRN PRN Reason: PAIN-MILD/TEMP >/= 100.4 Last Admin: 04/28/19 05:00 Dose: 650 mg Baclofen (Lioresal Tab*) 10 mg PO BID [facility] Last Admin: 04/29/19 10:26 Dose: Not Given Benzocaine/Butamben/Tetracaine HCl (Cetacaine [place]* 2-2-14 %) 1 spray TOPICAL ONCE PRN PRN Reason: pain with insertion NG tube Last Admin: 04/28/19 20:36 Dose: 1 spray Bisacodyl (Dulcolax Supp*) 10 mg [place] BID [facility] Last Admin: 04/29/19 10:26 Dose: 10 mg Enoxaparin Sodium (Lovenox(*)) 40 mg SUBCUT Q24H [facility] Last Admin: 04/28/19 23:35 Dose: 40 mg Gabapentin (Neurontin Cap(*)) 300 mg PO TID [facility] Last Admin: 04/29/19 13:53 Dose: 300 mg Heparin Sodium (Porcine) (Heparin Flush Picc/Ml/Cvc(*)) 1 - 3 ml FLUSH 0600, 1800 [facility]; Protocol Last Admin: 04/29/19 06:05 Dose: Not Given Levetiracetam 250 mg/ Sodium (Chloride) 102.5 mls @ 410 mls/hr IVPB Q12H [facility] Last Admin: 04/29/19 12:02 Dose: 410 mls/hr Lactated Ringer's (Lactated Ringers 1000 Ml Bag*) 1,000 mls @ 125 mls/hr IV PER RATE [facility] Last Admin: 04/29/19 04:45 Dose: 125 mls/hr Dextrose 1,000 ml/ Amino Acids 850 ml/ Sterile Water 150 ml/Fat Emulsion Intravenous 500 ml/ Sodium Chloride 100 meq/Potassium Chloride 50 meq/Potassium Phosphate 15 mmole/Calcium Gluconate 15 meq/Magnesium Sulfate 10 meq/ Multivitamins 10 ml/ Trace Metals 1 ml/ Nutrition ( Parenteral) 2,600.721 mls @ 108.422 mls/hr IV 1700 [facility] Metoclopramide HCl (Reglan Iv*) 5 mg IV Q6H [facility] Last Admin: 04/29/19 10:25 Dose: 5 mg Ondansetron HCl (Zofran Inj*) 4 mg IV Q6H PRN PRN Reason: NAUSEA Last Admin: 04/28/19 17:16 Dose: 4 mg Pantoprazole Sodium (Protonix Iv*) 40 mg IV Q24HR [facility] Last Admin: 04/29/19 10:24 Dose: 40 mg Pharmacy Profile Note (Scopolamine Patch Remove*) 1 note PATCH OFF 1500 [facility] Scopolamine (Transderm-Scop 1.5 Mg Patch*) 1 patch TRANSDERM Q72H [facility] Last Admin: 04/28/19 16:10 Dose: 1 patch Tamsulosin HCl (Flomax Cap*) 0.4 mg PO DAILY [facility] Last Admin: 04/29/19 10:25 Dose: 0.4 mg Topiramate (Topamax(*)) 100 mg PO BEDTIME [facility] Last Admin: 04/28/19 23:43 Dose: Not Given Topiramate (Topamax(*)) 50 mg PO QAM [facility] Last Admin: 04/29/19 10:25 Dose: 50 mg Vital Signs: Temp Pulse Resp BP Pulse Ox 97.2 F 86 16 115/80 98 04/29/19 11:32 04/29/19 11:32 04/29/19 13:53 04/29/19 11:32 04/29/19 11:32 Oxygen Devices in Use Now: None Appearance: Mr. Cali is an obese middle-aged black male who is laying on the R side. He appears midly uncomfortable, but in no acute distress. NGT in place. Eyes: No Scleral Icterus, PERRLA Ears/Nose/Mouth/Throat: NL Teeth, Lips, Gums, Clear Oropharnyx, - - dry oral mucosa Neck: NL Appearance and Movements; NL JVP, Trachea Midline Respiratory: Symmetrical Chest Expansion and Respiratory Effort, Clear to Auscultation - anteriorly Cardiovascular: NL Sounds; No Murmurs; No JVD, RRR, No Edema Abdominal: - - incision sites CDI and approximated; abdomen distended; BS hypoactive throughout; mildy TTP Extremities: No Clubbing, Cyanosis, - - R AKA Result Diagrams: 04/29/19 06:02 04/29/19 06:02 Microbiology and Other Data: Microbiology 04/16/19 15:32 Aerobic Blood Culture - Preliminary Blood Venous No Growth Day 1 Anaerobic Blood Culture - Preliminary No Growth Day 1 04/16/19 15:30 Aerobic Blood Culture - Preliminary Blood Venous No Growth Day 1 Anaerobic Blood Culture - Preliminary No Growth Day 1 Assess/Plan/Problems-Billing Assessment: Mr. 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 - Patient Problems (1) Bowel obstruction Comment: - so far 2 attempts to remove NGT (04/23, 04/28) resulted in reinsertion - SBO vs ileus; history of hernia repair only; opiates and constipation likely contributing - Hold opiates - AXR 04/27: improved; 04/28: dilated loops of bowel - Appreciate Surgery consult and input - Exploratory lap reveals no SBO; lysis of adhesions performed - having BMs, but unable to tolerate anything PO - plan for PPN today; will need midline placed tomorrow - continue NGT, conservative treatment - patient clinically appears to have SBO, but no SBO found on exploratory lap; plan for small bowel follow through tomorrow (2) Seizure disorder Comment: -possible seizure with missed dose to Topamax 04/20, recurred overnight 04/24 -pt usually takes topiramate 50 a.m., 100 p.m.; while inpatient, only taking 100 bedtime -resume home doses -malabsorption in setting of bowel obstruction probably contributing -neurology consulted; thank you for recommendations -Topamax level pending -continue Topamax at home dose, gabapentin -patient placed on Keppra IV while NPO; d/c once tolerating PO (3) Acute buttock pain Comment: - intermittent c/o pain in L buttock - MRI without signs of osteo or joint infection - CRP not declining, unclear significance; no other signs of worsening; possibly related to current abdominal pathology - D/c clinda per ID; no need for any further abx (4) History of CVA with residual deficit Comment: - Expressive aphasia and right sided weakenss - Continue aspirin, atorvastatin (5) DVT prophylaxis Comment: - Lovenox (6) Full code status Comment: Status and Disposition: Inpatient. Anticipate d/c home when medically stable.
[2019-04-29] MEDS ORDERED: TPN* 24 HR with D10W 1000 ML BAG* 1,000 ML, Amino Acid Infusion 10%* 850 ML, Sterile Wa... IV SCH ×12 (17:00)
[2019-04-29] MEDS: Enoxaparin(*) 40 MG/0.4 ML SYR SUBCUT SCH (22:55)
[2019-04-29] MEDS: Topiramate TAB(*) 100 MG PO SCH (23:01)
[2019-04-30] MEDS: Metoclopramide IV* 5 MG/ML 2 ML VIAL IV SCH ×4 (05:27→21:24)
[2019-04-30 07:16] LABS: Albumin 2.9 g/dL (3.2-5.2); Albumin/Globulin Ratio 0.8 (1-3); BUN/Creatinine Ratio 19.8 (8-20); Calcium 8.1 mg/dL (8.6-10.3); EGFR African American 119.7 (>60); EGFR Non-African American 98.9 (>60); Globulin 3.7 g/dL (2-4); Magnesium 1.7 mg/dL (1.9-2.7); Phosphorus 2.8 mg/dL (2.5-5.0); Potassium 3.5 mmol/L (3.5-5.0); Total Bilirubin 0.4 mg/dL (0.2-1.0); Total Protein 6.6 g/dL (6.4-8.9)
[2019-04-30] MEDS: Topiramate TAB(*) 25 MG PO SCH (08:24)
[2019-04-30] MEDS: Gabapentin CAP(*) 300 MG PO SCH ×3 (08:25→21:23)
[2019-04-30] MEDS: Tamsulosin CAP* 0.4 MG PO SCH (08:25)
[2019-04-30] MEDS: Baclofen TAB* 10 MG PO SCH ×2 (08:25→21:24)
[2019-04-30] MEDS: Pantoprazole IV* 40 MG IV SCH (08:26)
[2019-04-30] MEDS: Lactated Ringers 1000 ML Bag* 1,000 ML IV SCH ×2 (08:36→20:53)
[2019-04-30] MEDS: levETIRAcetam IV* 250 MG in NS 0.9% 100 ML* 100 ML IVPB SCH (11:35)
--- NOTE | 2019-04-30 13:48 | PN ---
Progress Note - Progress Note Date of Service: 04/30/19 Note: Surgery Progress: S: POD # 5. Seen and examined with Dr. Jaffe (covering for Dr. Meyers). He seems to deny much in the way of pain. States he is passing flatus. Per his current nurse he had had 4 BMs on Tuesday and once (formed) yesterday. NG output was verbally ~ 750 ml overnight, and there is about the same amount in the trap since this a.m. (~ 700 ml). Does have PPN running. O: Vital Signs - 8 hr 04/30/19 04/30/19 04/30/19 07:20 07:45 08:25 Temperature 97.8 F Pulse Rate 73 Respiratory 15 18 18 Rate Blood Pressure 129/72 138/82 (mmHg) O2 Sat by Pulse 92 92 Oximetry 04/30/19 04/30/19 10:34 10:35 Temperature 97.6 F Pulse Rate 71 Respiratory 18 17 Rate Blood Pressure 156/85 (mmHg) O2 Sat by Pulse 98 Oximetry Intake and Output Last 24 Hours 04/28/19 04/29/19 04/30/19 05/01/19 06:59 06:59 06:59 06:59 Intake Total 4389 2334 405 40 Output Total 2525 3485 1250 900 Balance 3904 -1151 -845 -860 Intake: IV Fluids 4182 2182 200 Keppra 102 LR 4182 2025 200 potassium 55 IVPB 207 152 105 Keppra 207 102 105 Magnesium 50 Oral 0 0 0 0 NG Tube Irrigate Amount 100 40 Output: NG Tube Drainage Amount 900 750 750 Urine 2525 1935 500 150 Emesis 650 Other: Estimated Void Large # Bowel Movements 0 0 0 Estimated Stool Amount Medium # Voids 1 5 1 1 Gen: lying in bed; appears comfortable, NAD Abd: lap sites ok; mild to mod distended; hypoactive BS; soft; no sig tenderness to palp AXR (reviewed personally and compared to previous): Exam Date: 04/30/19 ADM Status: ADM IN Order Information: ABDOMEN/KUB 1 VW Accession Number: [id number] CPT: 24156 INDICATION: Abdominal pain, nausea and vomiting. COMPARISON: Comparison is made with prior studies from April 28, 2019 and March 29, 2019. TECHNIQUE: Frontal supine films of the abdomen were obtained. FINDINGS: There is moderate distention of proximal and mid small bowel consistent with at least a moderate grade partial small bowel obstruction which appears unchanged. There is a paucity of gas within the colon which appears nondistended. IMPRESSION: PARTIAL SMALL BOWEL OBSTRUCTION, UNCHANGED. A: prob ileus P: cont NG drainage; currently receiving PPN, though spoke w/ Dr. Ellis re: possibility to place PICC for TPN. If he continues to not open up soon, will consider contrast study w/ gastrograffin (discussed w/ Dr. Jaffe).
--- NOTE | 2019-04-30 16:25 | PN ---
Subjective Date of Service: 04/30/19 Interval History: Denies abd pain.WBC elevated todayt but afebrile no clinical worsening. Will monitor closely Family History: Unchanged from Admission Social History: Unchanged from Admission Past Medical History: Unchanged from Admission Objective Active Medications: Acetaminophen (Tylenol Tab*) 650 mg PO Q4H PRN PRN Reason: PAIN-MILD/TEMP >/= 100.4 Last Admin: 04/28/19 05:00 Dose: 650 mg Baclofen (Lioresal Tab*) 10 mg PO BID [facility] Last Admin: 04/30/19 08:25 Dose: 10 mg Benzocaine/Butamben/Tetracaine HCl (Cetacaine [place]* 2-2-14 %) 1 spray TOPICAL ONCE PRN PRN Reason: pain with insertion NG tube Last Admin: 04/28/19 20:36 Dose: 1 spray Bisacodyl (Dulcolax Supp*) 10 mg [place] BID [facility] Last Admin: 04/30/19 11:19 Dose: Not Given Enoxaparin Sodium (Lovenox(*)) 40 mg SUBCUT Q24H [facility] Last Admin: 04/29/19 22:55 Dose: 40 mg Gabapentin (Neurontin Cap(*)) 300 mg PO TID [facility] Last Admin: 04/30/19 14:28 Dose: 300 mg Heparin Sodium (Porcine) (Heparin Flush Picc/Ml/Cvc(*)) 1 - 3 ml FLUSH 0600, 1800 [facility]; Protocol Last Admin: 04/30/19 07:42 Dose: Not Given Levetiracetam 250 mg/ Sodium (Chloride) 102.5 mls @ 410 mls/hr IVPB Q12H [facility] Last Admin: 04/30/19 11:35 Dose: 410 mls/hr Lactated Ringer's (Lactated Ringers 1000 Ml Bag*) 1,000 mls @ 125 mls/hr IV PER RATE [facility] Last Admin: 04/30/19 08:36 Dose: 125 mls/hr Dextrose 1,000 ml/ Amino Acids 850 ml/ Sterile Water 150 ml/Fat Emulsion Intravenous 500 ml/ Sodium Chloride 100 meq/Potassium Chloride 50 meq/Potassium Phosphate 15 mmole/Calcium Gluconate 15 meq/Magnesium Sulfate 10 meq/ Multivitamins 10 ml/ Trace Metals 1 ml/ Nutrition ( Parenteral) 2,600.721 mls @ 108.422 mls/hr IV 1700 [facility] Stop: 04/30/19 16:59 Last Admin: 04/29/19 17:07 Dose: 108.422 mls/hr Dextrose 1,000 ml/ Amino Acids 850 ml/ Sterile Water 150 ml/Fat Emulsion Intravenous 500 ml/ Sodium Chloride 120 meq/Potassium Chloride 50 meq/Potassium Phosphate 15 mmole/Calcium Gluconate 15 meq/Magnesium Sulfate 10 meq/ Multivitamins 10 ml/ Trace Metals 1 ml/ Nutrition ( Parenteral) 2,605.721 mls @ 108.631 mls/hr IV 1700 [facility] Metoclopramide HCl (Reglan Iv*) 5 mg IV Q6H [facility] Last Admin: 04/30/19 10:04 Dose: 5 mg Ondansetron HCl (Zofran Inj*) 4 mg IV Q6H PRN PRN Reason: NAUSEA Last Admin: 04/28/19 17:16 Dose: 4 mg Pantoprazole Sodium (Protonix Iv*) 40 mg IV Q24HR [facility] Last Admin: 04/30/19 08:26 Dose: 40 mg Pharmacy Profile Note (Scopolamine Patch Remove*) 1 note PATCH OFF 1500 [facility] Scopolamine (Transderm-Scop 1.5 Mg Patch*) 1 patch TRANSDERM Q72H [facility] Last Admin: 04/28/19 16:10 Dose: 1 patch Tamsulosin HCl (Flomax Cap*) 0.4 mg PO DAILY [facility] Last Admin: 04/30/19 08:25 Dose: 0.4 mg Topiramate (Topamax(*)) 100 mg PO BEDTIME [facility] Last Admin: 04/29/19 23:01 Dose: Not Given Topiramate (Topamax(*)) 50 mg PO QAM [facility] Last Admin: 04/30/19 08:24 Dose: 50 mg Vital Signs - 8 hr 04/30/19 04/30/19 04/30/19 08:25 10:34 10:35 Temperature 97.6 F Pulse Rate 71 Respiratory 18 18 17 Rate Blood Pressure 138/82 156/85 (mmHg) O2 Sat by Pulse 98 Oximetry 04/30/19 14:28 Temperature Pulse Rate Respiratory 20 Rate Blood Pressure (mmHg) O2 Sat by Pulse Oximetry Oxygen Devices in Use Now: None Eyes: No Scleral Icterus Ears/Nose/Mouth/Throat: NL Teeth, Lips, Gums Neck: NL Appearance and Movements; NL JVP Respiratory: Symmetrical Chest Expansion and Respiratory Effort Cardiovascular: NL Sounds; No Murmurs; No JVD Abdominal: - - distended no rebound no guarding Extremities: No Edema Result Diagrams: 04/29/19 06:02 04/30/19 06:38 Microbiology and Other Data: Microbiology 04/16/19 15:32 Aerobic Blood Culture - Preliminary Blood Venous No Growth Day 1 Anaerobic Blood Culture - Preliminary No Growth Day 1 04/16/19 15:30 Aerobic Blood Culture - Preliminary Blood Venous No Growth Day 1 Anaerobic Blood Culture - Preliminary No Growth Day 1 Assess/Plan/Problems-Billing Assessment: Mr. 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 - Patient Problems (1) Bowel obstruction Current Visit: Yes Status: Acute Code(s): K56.609 - UNSP INTESTNL OBST, UNSP TO PARTIAL VERSUS COMPLETE OBST SNOMED Code(s): 97405078 Comment: - so far 2 attempts to remove NGT (04/23, 04/28) resulted in reinsertion - SBO vs ileus; history of hernia repair only; opiates and constipation likely contributing - Hold opiates - AXR 04/27: improved; 04/28: dilated loops of bowel - Appreciate Surgery consult and input - Exploratory lap reveals no SBO; lysis of adhesions performed - having BMs, but unable to tolerate anything PO - plan for PPN today; will place PICC likely tomorrow per scheduling - continue NGT, conservative treatment - patient clinically appears to have SBO, but no SBO found on exploratory lap -Can consider gastrograffin study (2) History of CVA with residual deficit Current Visit: Yes Status: Acute Code(s): I69.30 - UNSPECIFIED SEQUELAE OF CEREBRAL INFARCTION SNOMED Code(s): 415434043 Comment: - Expressive aphasia and right sided weakenss - Continue aspirin, atorvastatin (3) Acute buttock pain Current Visit: No Status: Acute Code(s): M79.1 - MYALGIA * DO NOT USE * SNOMED Code(s): 730219636 Comment: - intermittent c/o pain in L buttock - MRI without signs of osteo or joint infection - CRP not declining, unclear significance; no other signs of worsening; possibly related to current abdominal pathology - D/c clinda per ID; no need for any further abx (4) Full code status Current Visit: Yes Status: Acute Code(s): Z78.9 - OTHER SPECIFIED HEALTH STATUS SNOMED Code(s): 973361599 Comment: (5) Leukocytosis Current Visit: Yes Status: Acute Code(s): D72.829 - ELEVATED WHITE BLOOD CELL COUNT, UNSPECIFIED SNOMED Code(s): 657808101 Comment: WBC high Pt afebrile with no clinical detiriotation Allergic to PCN Will recheck CBC with diff now and if still high or worse, will add empiric antibiotic to cover anaerobes and gram neg till condition becomes more clear. poss cipro,flagyl abd x ray today with no indication of perforation or worsening consider further imaging based on clinical progress (6) Hypomagnesemia Current Visit: Yes Status: Acute Code(s): E83.42 - HYPOMAGNESEMIA SNOMED Code(s): 592187780 Comment: mg 2g (7) Hypokalemia Current Visit: Yes Status: Acute Code(s): E87.6 - HYPOKALEMIA SNOMED Code( s): 24180361 Comment: 20 meq K low side K replace mg Status and Disposition: Inpatient. Anticipate d/c home when medically stable.
[2019-04-30] MEDS: TPN* 24 HR with D10W 1000 ML BAG* 1,000 ML, Amino Acid Infusion 10%* 850 ML, Sterile Wa... IV SCH ×12 (16:35)
[2019-04-30] MEDS ORDERED: Magnesium Sulfate 2 GM IV* 2 GM/50 ML BAG IVPB ONE (17:00)
[2019-04-30 18:01] LABS: ABS Basophils 0.1 10^3/ul (0-0.2); ABS Eosinophils 0.3 10^3/ul (0-0.6); ABS Lymphocytes 2.6 10^3/ul (1.0-4.8); ABS Monocytes 0.6 10^3/ul (0-0.8); ABS Neutrophils 6.4 10^3/ul (1.5-7.7); Eosinophil % 3.1 %; Hematocrit 36 % (42-52); Lymphocyte % 26.1 %; Mean Corpuscular HGB Conc 34 g/dL (31-36); Mean Corpuscular Hemoglobin 29 pg (27-31); Mean Corpuscular Volume 85 fL (80-94); Platelet Count 418 10^3/uL (150-450); Red Cell Distribution Width 15 % (10-15)
[2019-04-30] MEDS: Topiramate TAB(*) 100 MG PO SCH (21:23)
[2019-04-30] MEDS: Enoxaparin(*) 40 MG/0.4 ML SYR SUBCUT SCH (21:24)
[2019-04-30] MEDS: KCL 20 MEQ/100 ML IVPREMIX* 20 MEQ/100 ML BAG IV SCH (21:25)
[2019-05-01] MEDS: Acetaminophen TAB* 325 MG PO PRN ×2 (00:45→09:41)
[2019-05-01] MEDS: levETIRAcetam IV* 250 MG in NS 0.9% 100 ML* 100 ML IVPB SCH ×2 (02:21→13:10)
[2019-05-01] MEDS: KCL 20 MEQ/100 ML IVPREMIX* 20 MEQ/100 ML BAG IV SCH ×2 (03:22→07:31)
[2019-05-01] MEDS: Metoclopramide IV* 5 MG/ML 2 ML VIAL IV SCH ×4 (03:28→22:17)
[2019-05-01] MEDS: Lactated Ringers 1000 ML Bag* 1,000 ML IV SCH ×2 (08:50→18:35)
[2019-05-01] MEDS: Pantoprazole IV* 40 MG IV SCH (09:39)
[2019-05-01] MEDS: Gabapentin CAP(*) 300 MG PO SCH ×3 (09:40→22:13)
[2019-05-01] MEDS: Topiramate TAB(*) 25 MG PO SCH (09:41)
[2019-05-01] MEDS: Baclofen TAB* 10 MG PO SCH ×2 (09:42→22:12)
[2019-05-01] MEDS: Tamsulosin CAP* 0.4 MG PO SCH (09:42)
[2019-05-01] MEDS ORDERED: Alteplase (CATHFLO)* 2 MG VIAL IV ONE (13:25)
[2019-05-01 13:39] LABS: ABS Eosinophils 0.3 10^3/ul (0-0.6); ABS Lymphocytes 1.8 10^3/ul (1.0-4.8); ABS Monocytes 0.4 10^3/ul (0-0.8); ABS Neutrophils 4.8 10^3/ul (1.5-7.7); Eosinophil % 3.5 %; Hematocrit 36 % (42-52); Lymphocyte % 24.5 %; Mean Corpuscular HGB Conc 34 g/dL (31-36); Mean Corpuscular Hemoglobin 29 pg (27-31); Mean Corpuscular Volume 85 fL (80-94); Nucleated Red Blood Cells % 0.1; Platelet Count 422 10^3/uL (150-450); Red Blood Count 4.21 10^6 /uL (4.18-5.48); Red Cell Distribution Width 16 % (10-15); White Blood Count 7.3 10^3/uL (3.5-10.8)
[2019-05-01 14:19] LABS: Albumin 3.2 g/dL (3.2-5.2); Calcium 8.4 mg/dL (8.6-10.3); Magnesium 1.7 mg/dL (1.9-2.7); Total Bilirubin 0.3 mg/dL (0.2-1.0)
--- NOTE | 2019-05-01 14:24 | PN ---
Progress Note - Progress Note Date of Service: 05/01/19 SOAP: Subjective: NAD NG with clear output 150cc over last few hours + BM Liquid stool seen by me denies any pain [] Objective: Vital Signs Temp 97.7 F 05/01/19 03:18 Pulse 73 05/01/19 03:18 Resp 17 05/01/19 13:58 BP 140/82 05/01/19 09:30 Pulse Ox 95 05/01/19 03:18 Intake & Output 04/30/19 05/01/19 05/01/19 18:59 06:59 18:59 Intake Total 4763 200 0 Output Total 900 2725 1440 Balance 9714 -2987 -0139 Intake: IV Fluids 2158 LR 2158 IVPB 105 Keppra 105 TPN/PPN 2460 Oral 0 200 0 NG Tube Irrigate Amount 40 Output: NG Tube Drainage Amount 750 790 Urine 150 2725 650 Other: Estimated Void Medium # Bowel Movements 1 Estimated Stool Amount Medium # Voids 1 3 1 Laboratory Tests 04/29/19 04/30/19 05/01/19 06:02 17:55 13:10 WBC 17.1 H 10.0 7.3 PEX GEN: NAD Chest: CTAB CVS: RRR Abd: obese, soft, non tender, incision sites C/D/I Hypoactive BS's Ext: Left Calf soft non tender, Right AKA [] Assessment: POD 6 S/P Diagnostic Laparoscopy for SBO, post op Ileus, NG in place, PICC Placed today [] Plan: Begin TPN, Monitor NG output, now with decreasing output, 700+ overnight. If High output overnight consider SBFT series tomorrow Above D/W Dr Jaffe []
[2019-05-01 14:25] LABS: Albumin/Globulin Ratio 0.9 (1-3); BUN/Creatinine Ratio 16.9 (8-20); EGFR African American 154.3 (>60); EGFR Non-African American 127.5 (>60); Globulin 3.7 g/dL (2-4); Phosphorus 2.6 mg/dL (2.5-5.0); Total Protein 6.9 g/dL (6.4-8.9)
[2019-05-01] MEDS ORDERED: Scopolamine PATCH Remove* 1 NOTE MISC PATCH OFF SCH (15:00)
[2019-05-01] MEDS: Scopolamine 1.5 mg* PATCH TRANSDERM SCH (15:38)
--- NOTE | 2019-05-01 15:44 | PN ---
Subjective Date of Service: 05/01/19 Interval History: s/p PICC placement today . Plan to start TPN. Good stool output. Ongoing NG output. Symptoms continue Family History: Unchanged from Admission Social History: Unchanged from Admission Past Medical History: Unchanged from Admission Objective Active Medications: Acetaminophen (Tylenol Tab*) 650 mg PO Q4H PRN PRN Reason: PAIN-MILD/TEMP >/= 100.4 Last Admin: 05/01/19 09:41 Dose: 650 mg Baclofen (Lioresal Tab*) 10 mg PO BID [facility] Last Admin: 05/01/19 09:42 Dose: 10 mg Benzocaine/Butamben/Tetracaine HCl (Cetacaine [place]* 2-2-14 %) 1 spray TOPICAL ONCE PRN PRN Reason: pain with insertion NG tube Last Admin: 04/28/19 20:36 Dose: 1 spray Bisacodyl (Dulcolax Supp*) 10 mg [place] BID [facility] Last Admin: 05/01/19 09:42 Dose: Not Given Enoxaparin Sodium (Lovenox(*)) 40 mg SUBCUT Q24H [facility] Last Admin: 04/30/19 21:24 Dose: 40 mg Gabapentin (Neurontin Cap(*)) 300 mg PO TID [facility] Last Admin: 05/01/19 13:58 Dose: 300 mg Heparin Sodium (Porcine) (Heparin Flush Picc/Ml/Cvc(*)) 1 - 3 ml FLUSH 0600, 1800 [facility]; Protocol Last Admin: 05/01/19 05:44 Dose: Not Given Levetiracetam 250 mg/ Sodium (Chloride) 102.5 mls @ 410 mls/hr IVPB Q12H [facility] Last Admin: 05/01/19 13:10 Dose: 410 mls/hr Lactated Ringer's (Lactated Ringers 1000 Ml Bag*) 1,000 mls @ 125 mls/hr IV PER RATE [facility] Last Admin: 05/01/19 08:50 Dose: 125 mls/hr Dextrose 1,000 ml/ Amino Acids 850 ml/ Sterile Water 150 ml/Fat Emulsion Intravenous 500 ml/ Sodium Chloride 120 meq/Potassium Chloride 50 meq/Potassium Phosphate 15 mmole/Calcium Gluconate 15 meq/Magnesium Sulfate 10 meq/ Multivitamins 10 ml/ Trace Metals 1 ml/ Nutrition ( Parenteral) 2,605.721 mls @ 108.631 mls/hr IV 1700 [facility] Last Admin: 04/30/19 16:35 Dose: 108.631 mls/hr Metoclopramide HCl (Reglan Iv*) 5 mg IV Q6H [facility] Last Admin: 05/01/19 09:40 Dose: 5 mg Ondansetron HCl (Zofran Inj*) 4 mg IV Q6H PRN PRN Reason: NAUSEA Last Admin: 04/28/19 17:16 Dose: 4 mg Pantoprazole Sodium (Protonix Iv*) 40 mg IV Q24HR [facility] Last Admin: 05/01/19 09:39 Dose: 40 mg Pharmacy Profile Note (Scopolamine Patch Remove*) 1 note PATCH OFF 1500 [facility] Scopolamine (Transderm-Scop 1.5 Mg Patch*) 1 patch TRANSDERM Q72H [facility] Last Admin: 04/28/19 16:10 Dose: 1 patch Tamsulosin HCl (Flomax Cap*) 0.4 mg PO DAILY [facility] Last Admin: 05/01/19 09:42 Dose: 0.4 mg Topiramate (Topamax(*)) 100 mg PO BEDTIME [facility] Last Admin: 04/30/19 21:23 Dose: 100 mg Topiramate (Topamax(*)) 50 mg PO QAM [facility] Last Admin: 05/01/19 09:41 Dose: 50 mg Vital Signs - 8 hr 05/01/19 05/01/19 05/01/19 09:30 09:40 13:58 Respiratory 17 17 Rate Blood Pressure 140/82 (mmHg) Oxygen Devices in Use Now: None Eyes: No Scleral Icterus Ears/Nose/Mouth/Throat: NL Teeth, Lips, Gums Neck: NL Appearance and Movements; NL JVP Respiratory: Symmetrical Chest Expansion and Respiratory Effort Cardiovascular: NL Sounds; No Murmurs; No JVD Abdominal: NL Sounds; No Tenderness; No Distention, - - distended no rebound no guarding hypoactive BS Neurological: Alert and Oriented x 3 Result Diagrams: 05/01/19 13:10 05/01/19 13:10 Microbiology and Other Data: Microbiology 04/16/19 15:32 Aerobic Blood Culture - Preliminary Blood Venous No Growth Day 1 Anaerobic Blood Culture - Preliminary No Growth Day 1 04/16/19 15:30 Aerobic Blood Culture - Preliminary Blood Venous No Growth Day 1 Anaerobic Blood Culture - Preliminary No Growth Day 1 Assess/Plan/Problems-Billing Assessment: Mr. 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 - Patient Problems (1) Bowel obstruction Current Visit: Yes Status: Acute Code(s): K56.609 - UNSP INTESTNL OBST, UNSP TO PARTIAL VERSUS COMPLETE OBST SNOMED Code(s): 88724424 Comment: - so far 2 attempts to remove NGT (04/23, 04/28) resulted in reinsertion - SBO :history of hernia repair only; opiates and constipation likely contributing - Hold opiates - AXR 04/27: improved; 04/28: dilated loops of bowel - Appreciate Surgery consult and input - Exploratory lap reveals no SBO; lysis of adhesions performed - having BMs, but unable to tolerate anything PO - on ppn.Transitioning to TPN after PICC placement today - continue NGT, conservative treatment - patient clinically appears to have SBO, but no SBO found on exploratory lap -Can consider gastrograffin study -D/w surgery. Will request GI input due to odd pic. ?Motility issues other etiology -On scheduled Reglan (2) History of CVA with residual deficit Current Visit: Yes Status: Acute Code(s): I69.30 - UNSPECIFIED SEQUELAE OF CEREBRAL INFARCTION SNOMED Code(s): 331005373 Comment: - Expressive aphasia and right sided weakenss - Continue aspirin, atorvastatin (3) Acute buttock pain Current Visit: No Status: Acute Code(s): M79.1 - MYALGIA * DO NOT USE * SNOMED Code(s): 585447055 Comment: - intermittent c/o pain in L buttock - MRI without signs of osteo or joint infection - CRP not declining, unclear significance; no other signs of worsening; possibly related to current abdominal pathology - D/c clinda per ID; no need for any further abx (4) Full code status Current Visit: Yes Status: Acute Code(s): Z78.9 - OTHER SPECIFIED HEALTH STATUS SNOMED Code(s): 359113770 Comment: (5) Leukocytosis Current Visit: Yes Status: Acute Code(s): D72.829 - ELEVATED WHITE BLOOD CELL COUNT, UNSPECIFIED SNOMED Code(s): 229802042 Comment: WBC high yesterday Repeat ok No evidence of infection (6) Hypomagnesemia Current Visit: Yes Status: Acute Code(s): E83.42 - HYPOMAGNESEMIA SNOMED Code(s): 392886890 Comment: mg 2g yesterday (7) Hypokalemia Current Visit: Yes Status: Acute Code(s): E87.6 - HYPOKALEMIA SNOMED Code( s): 67654969 Comment: replacing and monitoring Status and Disposition: Inpatient. Anticipate d/c home when medically stable.
[2019-05-01] MEDS: TPN* 24 HR with D10W 1000 ML BAG* 1,000 ML, Amino Acid Infusion 10%* 850 ML, Sterile Wa... IV SCH ×12 (16:52)
[2019-05-01] MEDS: Topiramate TAB(*) 100 MG PO SCH (22:13)
[2019-05-01] MEDS: Enoxaparin(*) 40 MG/0.4 ML SYR SUBCUT SCH (22:17)
[2019-05-02] MEDS: levETIRAcetam IV* 250 MG in NS 0.9% 100 ML* 100 ML IVPB SCH ×2 (00:43→12:02)
[2019-05-02] MEDS: Acetaminophen TAB* 325 MG PO PRN ×2 (02:14→10:50)
[2019-05-02] MEDS: Metoclopramide IV* 5 MG/ML 2 ML VIAL IV SCH ×4 (05:49→22:21)
[2019-05-02] MEDS: Lactated Ringers 1000 ML Bag* 1,000 ML IV SCH ×3 (06:01→23:13)
[2019-05-02 06:36] LABS: BUN/Creatinine Ratio 15.1 (8-20); Calcium 8.2 mg/dL (8.6-10.3); EGFR Non-African American 111.6 (>60); Potassium 3.6 mmol/L (3.5-5.0)
[2019-05-02] MEDS: Pantoprazole IV* 40 MG IV SCH (08:09)
[2019-05-02] MEDS: Tamsulosin CAP* 0.4 MG PO SCH (08:09)
[2019-05-02] MEDS: Topiramate TAB(*) 25 MG PO SCH (08:09)
[2019-05-02] MEDS: Baclofen TAB* 10 MG PO SCH ×2 (08:09→22:19)
[2019-05-02] MEDS: Gabapentin CAP(*) 300 MG PO SCH ×3 (08:09→22:20)
--- NOTE | 2019-05-02 11:11 | PN ---
Progress Note - Progress Note Date of Service: 05/02/19 SOAP: Subjective: NAD comfortable in bed NG continues with clear output + Large liquid BM this morning Objective: Vital Signs Temp 98.4 F 05/02/19 03:15 Pulse 73 05/02/19 03:15 Resp 17 05/02/19 08:09 BP 150/71 05/02/19 03:15 Pulse Ox 96 05/02/19 03:15 Intake & Output 05/01/19 05/02/19 05/02/19 18:59 06:59 18:59 Intake Total 100 6556 0 Output Total 2290 725 550 Balance -2190 5831 -550 Intake: IV Fluids 3061 LR 3061 IVPB 208 Keppra 208 TPN/PPN 3287 Oral 100 0 0 Output: NG Tube Drainage Amount 1090 200 Urine 1200 725 350 Other: Estimated Void Medium # Bowel Movements 1 2 Estimated Stool Amount Large Large # Voids 1 1 PEX GEN: NAD Chest: CTAB CVS: RRR Abd: obese, soft, non tender, incision sites C/D/I Hypoactive BS's Ext: Left Calf soft non tender, Right AKA Assessment:POD 7 S/P Diagnostic Laparoscopy for SBO, post op Ileus, NG in place , continues with clear output, PICC Placed yesterday TPN now running. Plan: Clamp NG Tube x 4 hours and check residual. Continue TPN. Patient also seen and examined by Dr Jaffe Above D/W Dr Hanson hospitalist
--- NOTE | 2019-05-02 13:55 | PN ---
Subjective Date of Service: 05/02/19 Interval History: Denies abd pain.Having BM Family History: Unchanged from Admission Social History: Unchanged from Admission Past Medical History: Unchanged from Admission Objective Active Medications: Acetaminophen (Tylenol Tab*) 650 mg PO Q4H PRN PRN Reason: PAIN-MILD/TEMP >/= 100.4 Last Admin: 05/02/19 10:50 Dose: 650 mg Baclofen (Lioresal Tab*) 10 mg PO BID [facility] Last Admin: 05/02/19 08:09 Dose: 10 mg Benzocaine/Butamben/Tetracaine HCl (Cetacaine [place]* 2-2-14 %) 1 spray TOPICAL ONCE PRN PRN Reason: pain with insertion NG tube Last Admin: 04/28/19 20:36 Dose: 1 spray Bisacodyl (Dulcolax Supp*) 10 mg [place] BID [facility] Last Admin: 05/02/19 08:09 Dose: Not Given Enoxaparin Sodium (Lovenox(*)) 40 mg SUBCUT Q24H [facility] Last Admin: 05/01/19 22:17 Dose: 40 mg Gabapentin (Neurontin Cap(*)) 300 mg PO TID [facility] Last Admin: 05/02/19 08:09 Dose: 300 mg Heparin Sodium (Porcine) (Heparin Flush Picc/Ml/Cvc(*)) 1 - 3 ml FLUSH 0600, 1800 [facility]; Protocol Last Admin: 05/02/19 06:04 Dose: Not Given Levetiracetam 250 mg/ Sodium (Chloride) 102.5 mls @ 410 mls/hr IVPB Q12H [facility] Last Admin: 05/02/19 12:02 Dose: 410 mls/hr Lactated Ringer's (Lactated Ringers 1000 Ml Bag*) 1,000 mls @ 125 mls/hr IV PER RATE [facility] Last Admin: 05/02/19 06:01 Dose: 125 mls/hr Dextrose 1,000 ml/ Amino Acids 850 ml/ Sterile Water 150 ml/Fat Emulsion Intravenous 500 ml/ Sodium Chloride 120 meq/Potassium Chloride 50 meq/Potassium Phosphate 15 mmole/Calcium Gluconate 15 meq/Magnesium Sulfate 10 meq/ Multivitamins 10 ml/ Trace Metals 1 ml/ Nutrition ( Parenteral) 2,605.721 mls @ 108.631 mls/hr IV 1700 [facility] Stop: 05/02/19 16:59 Last Admin: 05/01/19 16:52 Dose: 108.631 mls/hr Dextrose 500 ml/ Amino Acids 850 ml/ Sterile Water 150 ml/Fat Emulsion Intravenous 250 ml/ Sodium Chloride 120 meq/Potassium Chloride 50 meq/Potassium Phosphate 15 mmole/Calcium Gluconate 15 meq/Magnesium Sulfate 10 meq/ Multivitamins 10 ml/ Trace Metals 1 ml/ Nutrition ( Parenteral) 1,855.721 mls @ 77.322 mls/hr CENTR 1700 [facility]; Protocol Metoclopramide HCl (Reglan Iv*) 5 mg IV Q6H [facility] Last Admin: 05/02/19 10:19 Dose: 5 mg Ondansetron HCl (Zofran Inj*) 4 mg IV Q6H PRN PRN Reason: NAUSEA Last Admin: 04/28/19 17:16 Dose: 4 mg Pantoprazole Sodium (Protonix Iv*) 40 mg IV Q24HR [facility] Last Admin: 05/02/19 08:09 Dose: 40 mg Pharmacy Profile Note (Scopolamine Patch Remove*) 1 note PATCH OFF Q72H [facility] Scopolamine (Transderm-Scop 1.5 Mg Patch*) 1 patch TRANSDERM Q72H [facility] Last Admin: 05/01/19 15:38 Dose: 1 patch Tamsulosin HCl (Flomax Cap*) 0.4 mg PO DAILY [facility] Last Admin: 05/02/19 08:09 Dose: 0.4 mg Topiramate (Topamax(*)) 100 mg PO BEDTIME [facility] Last Admin: 05/01/19 22:13 Dose: 100 mg Topiramate (Topamax(*)) 50 mg PO QAM [facility] Last Admin: 05/02/19 08:09 Dose: 50 mg Vital Signs - 8 hr 05/02/19 05/02/19 05/02/19 07:15 08:09 11:15 Temperature 98.2 F 97.8 F Pulse Rate 75 72 Respiratory 17 17 16 Rate Blood Pressure 122/84 140/68 (mmHg) O2 Sat by Pulse 100 100 Oximetry 05/02/19 13:37 Temperature Pulse Rate Respiratory 18 Rate Blood Pressure (mmHg) O2 Sat by Pulse Oximetry Oxygen Devices in Use Now: None Eyes: No Scleral Icterus Ears/Nose/Mouth/Throat: NL Teeth, Lips, Gums Neck: NL Appearance and Movements; NL JVP Respiratory: Symmetrical Chest Expansion and Respiratory Effort Cardiovascular: NL Sounds; No Murmurs; No JVD Abdominal: - - distended,BS+ no rebound no guarding Extremities: No Edema Neurological: Alert and Oriented x 3 Result Diagrams: 05/01/19 13:10 05/02/19 06:00 Microbiology and Other Data: Microbiology 04/16/19 15:32 Aerobic Blood Culture - Preliminary Blood Venous No Growth Day 1 Anaerobic Blood Culture - Preliminary No Growth Day 1 04/16/19 15:30 Aerobic Blood Culture - Preliminary Blood Venous No Growth Day 1 Anaerobic Blood Culture - Preliminary No Growth Day 1 Assess/Plan/Problems-Billing Assessment: Mr. 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 - Patient Problems (1) Bowel obstruction Current Visit: Yes Status: Acute Code(s): K56.609 - UNSP INTESTNL OBST, UNSP TO PARTIAL VERSUS COMPLETE OBST SNOMED Code(s): 87061927 Comment: - so far 2 attempts to remove NGT (04/23, 04/28) resulted in reinsertion - SBO :history of hernia repair only; opiates and constipation likely contributing - Hold opiates - AXR 04/27: improved; 04/28: dilated loops of bowel - Appreciate Surgery consult and input - Exploratory lap reveals no SBO; lysis of adhesions performed - having BMs, but unable to tolerate anything PO - on ppn.Transitioning to TPN after PICC placement today - continue NGT, conservative treatment - patient clinically appears to have SBO, but no SBO found on exploratory lap -Can consider gastrograffin study -D/w surgery. -On scheduled Reglan -Clamp NGT today -Check residual -Will also get GI input if this attempt fails. Improving .NGT clamp (2) History of CVA with residual deficit Current Visit: Yes Status: Acute Code(s): I69.30 - UNSPECIFIED SEQUELAE OF CEREBRAL INFARCTION SNOMED Code(s): 610641332 Comment: - Expressive aphasia and right sided weakenss - Continue aspirin, atorvastatin (3) Acute buttock pain Current Visit: No Status: Acute Code(s): M79.1 - MYALGIA * DO NOT USE * SNOMED Code(s): 413026551 Comment: - intermittent c/o pain in L buttock - MRI without signs of osteo or joint infection - CRP not declining, unclear significance; no other signs of worsening; possibly related to current abdominal pathology - D/c clinda per ID; no need for any further abx (4) Full code status Current Visit: Yes Status: Acute Code(s): Z78.9 - OTHER SPECIFIED HEALTH STATUS SNOMED Code(s): 225594341 Comment: (5) Leukocytosis Current Visit: Yes Status: Acute Code(s): D72.829 - ELEVATED WHITE BLOOD CELL COUNT, UNSPECIFIED SNOMED Code(s): 466538601 Comment: WBC high Repeat ok No evidence of infection (6) Hypomagnesemia Current Visit: Yes Status: Acute Code(s): E83.42 - HYPOMAGNESEMIA SNOMED Code(s): 723278420 Comment: mg 2g yesterday (7) Hypokalemia Current Visit: Yes Status: Acute Code(s): E87.6 - HYPOKALEMIA SNOMED Code( s): 34772394 Comment: replacing and monitoring Status and Disposition: Inpatient. Anticipate d/c home when medically stable.
[2019-05-02] MEDS: TPN* 24 HR with Dextrose 50% Water* 500 ML, Amino Acid Infusion 10%* 850 ML, Sterile Wa... CENTR SCH ×12 (17:10)
[2019-05-02] MEDS: Lidocaine PATCH 5%* 1 PATCH TRANSDERM SCH (17:12)
[2019-05-02] MEDS: Enoxaparin(*) 40 MG/0.4 ML SYR SUBCUT SCH (22:16)
[2019-05-02] MEDS: Topiramate TAB(*) 100 MG PO SCH (22:19)
[2019-05-02] MEDS: Lidocaine Patch REMOVE* 1 NOTE MISC SCH (22:21)
[2019-05-03] MEDS: levETIRAcetam IV* 250 MG in NS 0.9% 100 ML* 100 ML IVPB SCH ×3 (00:10→23:23)
[2019-05-03 05:41] LABS: ABS Eosinophils 0.3 10^3/ul (0-0.6); ABS Lymphocytes 1.9 10^3/ul (1.0-4.8); ABS Monocytes 0.5 10^3/ul (0-0.8); Eosinophil % 4.6 %; Hematocrit 34 % (42-52); Hemoglobin 11.4 g/dL (14.0-18.0); Lymphocyte % 27.9 %; Mean Corpuscular HGB Conc 34 g/dL (31-36); Mean Corpuscular Hemoglobin 28 pg (27-31); Mean Corpuscular Volume 84 fL (80-94); Mean Platelet Volume 7.9 fL (7.4-10.4); Platelet Count 337 10^3/uL (150-450); Red Blood Count 4.06 10^6 /uL (4.18-5.48); Red Cell Distribution Width 15 % (10-15); White Blood Count 6.7 10^3/uL (3.5-10.8)
[2019-05-03] MEDS: Metoclopramide IV* 5 MG/ML 2 ML VIAL IV SCH ×4 (05:41→22:53)
[2019-05-03 06:03] LABS: Calcium 8.3 mg/dL (8.6-10.3); EGFR African American 126.9 (>60); EGFR Non-African American 104.9 (>60); Potassium 3.9 mmol/L (3.5-5.0)
[2019-05-03] MEDS: Acetaminophen TAB* 325 MG PO PRN (10:46)
[2019-05-03] MEDS: Lactated Ringers 1000 ML Bag* 1,000 ML IV SCH (10:49)
[2019-05-03] MEDS: Pantoprazole IV* 40 MG IV SCH (11:38)
[2019-05-03] MEDS: Baclofen TAB* 10 MG PO SCH ×2 (11:38→22:59)
[2019-05-03] MEDS: Gabapentin CAP(*) 300 MG PO SCH ×3 (11:38→22:59)
[2019-05-03] MEDS: Topiramate TAB(*) 25 MG PO SCH (11:38)
[2019-05-03] MEDS: Tamsulosin CAP* 0.4 MG PO SCH (11:38)
[2019-05-03] MEDS: Lidocaine PATCH 5%* 1 PATCH TRANSDERM SCH (11:40)
--- NOTE | 2019-05-03 12:18 | PN ---
Progress Note - Progress Note Date of Service: 05/03/19 SOAP: Subjective: NAD + BM,s (liquid) NG out on clears [] Objective: Vital Signs Temp 98.4 F 05/03/19 07:25 Pulse 73 05/03/19 07:25 Resp 20 05/03/19 11:38 BP 147/66 05/03/19 07:25 Pulse Ox 96 05/03/19 07:51 Intake & Output 05/02/19 05/03/19 05/03/19 18:59 06:59 18:59 Intake Total 2664 1644 0 Output Total 1550 1925 525 Balance 2389 -557 -525 Intake: IV Fluids 1387 796 LR 1387 796 IVPB 109 100 Keppra 109 100 TPN/PPN 1168 748 Oral 0 0 0 Output: NG Tube Drainage Amount 275 Urine 1275 1925 525 Other: Estimated Void Medium Medium # Bowel Movements 3 1 1 Estimated Stool Amount Large Large Small # Voids 2 1 Laboratory Tests 05/03/19 05:30 WBC 6.7 PEX GEN: NAD Chest: CTAB CVS: RRR Abd: obese, soft, non tender, incision sites C/D/I Hypoactive BS's Ext: Left Calf soft non tender, Right AKA Assessment:POD 8 S/P Diagnostic Laparoscopy for SBO, post op Ileus, NG removed 05/02, tolerating sips of clears without nausea or emesis, PICC was placed for TPN which is running. Plan: Continue TPN, slow advance of clear liquids as tolerated. D/W Dr Jaffe and RN.
--- NOTE | 2019-05-03 15:56 | PN ---
Subjective Date of Service: 05/03/19 Interval History: c/o buttock pain.tolerated sips.NGT removed Family History: Unchanged from Admission Social History: Unchanged from Admission Past Medical History: Unchanged from Admission Objective Active Medications: Acetaminophen (Tylenol Tab*) 650 mg PO Q4H PRN PRN Reason: PAIN-MILD/TEMP >/= 100.4 Last Admin: 05/03/19 10:46 Dose: 650 mg Baclofen (Lioresal Tab*) 10 mg PO BID [facility] Last Admin: 05/03/19 11:38 Dose: 10 mg Benzocaine/Butamben/Tetracaine HCl (Cetacaine [place]* 2-2-14 %) 1 spray TOPICAL ONCE PRN PRN Reason: pain with insertion NG tube Last Admin: 04/28/19 20:36 Dose: 1 spray Bisacodyl (Dulcolax Supp*) 10 mg [place] BID [facility] Last Admin: 05/03/19 14:43 Dose: 10 mg Enoxaparin Sodium (Lovenox(*)) 40 mg SUBCUT Q24H [facility] Last Admin: 05/02/19 22:16 Dose: 40 mg Gabapentin (Neurontin Cap(*)) 300 mg PO TID [facility] Last Admin: 05/03/19 14:11 Dose: 300 mg Heparin Sodium (Porcine) (Heparin Flush Picc/Ml/Cvc(*)) 1 - 3 ml FLUSH 0600, 1800 [facility]; Protocol Last Admin: 05/03/19 05:42 Dose: Not Given Levetiracetam 250 mg/ Sodium (Chloride) 102.5 mls @ 410 mls/hr IVPB Q12H [facility] Last Admin: 05/03/19 12:24 Dose: 410 mls/hr Lactated Ringer's (Lactated Ringers 1000 Ml Bag*) 1,000 mls @ 125 mls/hr IV PER RATE [facility] Last Admin: 05/03/19 10:49 Dose: 125 mls/hr Dextrose 500 ml/ Amino Acids 850 ml/ Sterile Water 150 ml/Fat Emulsion Intravenous 250 ml/ Sodium Chloride 120 meq/Potassium Chloride 50 meq/Potassium Phosphate 15 mmole/Calcium Gluconate 15 meq/Magnesium Sulfate 10 meq/ Multivitamins 10 ml/ Trace Metals 1 ml/ Nutrition ( Parenteral) 1,855.721 mls @ 77.322 mls/hr CENTR 1700 [facility]; Protocol Last Admin: 05/02/19 17:10 Dose: 77.322 mls/hr Lidocaine (Lidoderm 5% Patch*) 1 patch TRANSDERM DAILY [facility] Last Admin: 05/03/19 11:40 Dose: Not Given Metoclopramide HCl (Reglan Iv*) 5 mg IV Q6H [facility] Last Admin: 05/03/19 11:38 Dose: 5 mg Ondansetron HCl (Zofran Inj*) 4 mg IV Q6H PRN PRN Reason: NAUSEA Last Admin: 04/28/19 17:16 Dose: 4 mg Pantoprazole Sodium (Protonix Iv*) 40 mg IV Q24HR [facility] Last Admin: 05/03/19 11:38 Dose: 40 mg Pharmacy Profile Note (Scopolamine Patch Remove*) 1 note PATCH OFF Q72H [facility] Pharmacy Profile Note (Lidocaine Patch Remove*) 1 note N/A 2100 [facility] Last Admin: 05/02/19 22:21 Dose: 1 note Scopolamine (Transderm-Scop 1.5 Mg Patch*) 1 patch TRANSDERM Q72H [facility] Last Admin: 05/01/19 15:38 Dose: 1 patch Tamsulosin HCl (Flomax Cap*) 0.4 mg PO DAILY [facility] Last Admin: 05/03/19 11:38 Dose: 0.4 mg Topiramate (Topamax(*)) 100 mg PO BEDTIME [facility] Last Admin: 05/02/19 22:19 Dose: 100 mg Topiramate (Topamax(*)) 50 mg PO QAM [facility] Last Admin: 05/03/19 11:38 Dose: 50 mg Vital Signs - 8 hr 05/03/19 05/03/19 05/03/19 07:51 11:15 11:38 Temperature 97.9 F Pulse Rate 97 Respiratory 18 18 20 Rate Blood Pressure 106/65 (mmHg) O2 Sat by Pulse 96 91 Oximetry 05/03/19 05/03/19 14:11 14:20 Temperature Pulse Rate Respiratory 18 18 Rate Blood Pressure (mmHg) O2 Sat by Pulse Oximetry Oxygen Devices in Use Now: None Eyes: No Scleral Icterus Ears/Nose/Mouth/Throat: NL Teeth, Lips, Gums Neck: NL Appearance and Movements; NL JVP Respiratory: Symmetrical Chest Expansion and Respiratory Effort Cardiovascular: NL Sounds; No Murmurs; No JVD Abdominal: - - distended no rebound no guarding Extremities: No Edema Neurological: Alert and Oriented x 3 Result Diagrams: 05/03/19 05:30 05/03/19 05:30 Microbiology and Other Data: Microbiology 04/16/19 15:32 Aerobic Blood Culture - Preliminary Blood Venous No Growth Day 1 Anaerobic Blood Culture - Preliminary No Growth Day 1 04/16/19 15:30 Aerobic Blood Culture - Preliminary Blood Venous No Growth Day 1 Anaerobic Blood Culture - Preliminary No Growth Day 1 Assess/Plan/Problems-Billing Assessment: Mr. 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 - Patient Problems (1) Bowel obstruction Current Visit: Yes Status: Acute Code(s): K56.609 - UNSP INTESTNL OBST, UNSP TO PARTIAL VERSUS COMPLETE OBST SNOMED Code(s): 46427215 Comment: - so far 2 attempts to remove NGT (04/23, 04/28) resulted in reinsertion - SBO :history of hernia repair only; opiates and constipation likely contributing - Hold opiates - AXR 04/27: improved; 04/28: dilated loops of bowel - Appreciate Surgery consult and input - Exploratory lap reveals no SBO; lysis of adhesions performed - having BMs, but unable to tolerate anything PO - on ppn.Transitioning to TPN after PICC placement today - continue NGT, conservative treatment - patient clinically appears to have SBO, but no SBO found on exploratory lap -Can consider gastrograffin study -D/w surgery. -On scheduled Reglan -NGT removed now -Sips to advance to clear liquid diet (2) History of CVA with residual deficit Current Visit: Yes Status: Acute Code(s): I69.30 - UNSPECIFIED SEQUELAE OF CEREBRAL INFARCTION SNOMED Code(s): 684153676 Comment: - Expressive aphasia and right sided weakenss - Continue aspirin, atorvastatin (3) Acute buttock pain Current Visit: No Status: Acute Code(s): M79.1 - MYALGIA * DO NOT USE * SNOMED Code(s): 573186725 Comment: - intermittent c/o pain in L buttock - MRI without signs of osteo or joint infection - CRP not declining, unclear significance; no other signs of worsening; possibly related to current abdominal pathology - D/c clinda per ID; no need for any further abx (4) Full code status Current Visit: Yes Status: Acute Code(s): Z78.9 - OTHER SPECIFIED HEALTH STATUS SNOMED Code(s): 778737010 Comment: (5) Leukocytosis Current Visit: Yes Status: Acute Code(s): D72.829 - ELEVATED WHITE BLOOD CELL COUNT, UNSPECIFIED SNOMED Code(s): 648446752 Comment: WBC high Repeat ok No evidence of infection (6) Hypomagnesemia Current Visit: Yes Status: Acute Code(s): E83.42 - HYPOMAGNESEMIA SNOMED Code(s): 933457668 Comment: replaced (7) Hypokalemia Current Visit: Yes Status: Acute Code(s): E87.6 - HYPOKALEMIA SNOMED Code( s): 31692562 Comment: replacing and monitoring Status and Disposition: Inpatient. Anticipate d/c home when medically stable.
[2019-05-03] MEDS: TPN* 24 HR with Dextrose 50% Water* 500 ML, Amino Acid Infusion 10%* 850 ML, Sterile Wa... CENTR SCH ×12 (16:56)
[2019-05-03] MEDS: Topiramate TAB(*) 100 MG PO SCH (23:00)
[2019-05-03] MEDS: Enoxaparin(*) 40 MG/0.4 ML SYR SUBCUT SCH (23:15)
[2019-05-04] MEDS: Lactated Ringers 1000 ML Bag* 1,000 ML IV SCH ×2 (00:01→08:36)
[2019-05-04] MEDS: Lidocaine Patch REMOVE* 1 NOTE MISC SCH ×2 (00:16→21:12)
[2019-05-04] MEDS: Acetaminophen TAB* 325 MG PO PRN ×3 (01:25→23:26)
[2019-05-04] MEDS: Metoclopramide IV* 5 MG/ML 2 ML VIAL IV SCH ×4 (05:27→21:06)
[2019-05-04 06:18] LABS: ABS Basophils 0.1 10^3/ul (0-0.2); ABS Eosinophils 0.3 10^3/ul (0-0.6); ABS Lymphocytes 2.2 10^3/ul (1.0-4.8); ABS Monocytes 0.6 10^3/ul (0-0.8); ABS Neutrophils 3.3 10^3/ul (1.5-7.7); Eosinophil % 4.1 %; Hematocrit 34 % (42-52); Hemoglobin 11.3 g/dL (14.0-18.0); Lymphocyte % 33.7 %; Mean Corpuscular HGB Conc 34 g/dL (31-36); Mean Corpuscular Hemoglobin 28 pg (27-31); Mean Corpuscular Volume 84 fL (80-94); Mean Platelet Volume 8.3 fL (7.4-10.4); Nucleated Red Blood Cells % 0.1; Platelet Count 298 10^3/uL (150-450); Red Blood Count 3.99 10^6 /uL (4.18-5.48); Red Cell Distribution Width 15 % (10-15); White Blood Count 6.4 10^3/uL (3.5-10.8)
[2019-05-04 06:34] LABS: BUN/Creatinine Ratio 13.9 (8-20); Calcium 8.2 mg/dL (8.6-10.3); EGFR African American 137.1 (>60); EGFR Non-African American 113.3 (>60); Potassium 3.7 mmol/L (3.5-5.0)
--- NOTE | 2019-05-04 08:30 | PN ---
Progress Note - Progress Note Date of Service: 05/04/19 Note: Patient c/o left hip pain. Wearing a mask due to runny nose. Denies abdominal pain or nausea. Has been tolerating clears without any issues. Having bowel movements. Vital Signs - 12 hr Temp Pulse Resp BP Pulse Ox 05/04/19 03:15 97.8 F 66 20 111/69 98 05/04/19 01:32 16 05/04/19 00:00 96 05/03/19 23:15 97.6 F 81 16 101/58 96 05/03/19 22:59 20 Intake & Output 05/03/19 05/04/19 05/04/19 22:59 06:59 14:59 Intake Total 1920 1055 Output Total 800 900 375 Balance 1120 155 -375 Intake: IV Fluids 733 600 LR 733 600 IVPB 105 100 Keppra 105 100 TPN/PPN 842 355 Oral 240 0 Output: Urine 800 900 375 Other: # Bowel Movements 1 Estimated Stool Amount Large # Voids 1 General: NAD. Abd: soft, obese but no obvious distension, nontender. Incisions c/d/i. Neuro: Aphasic. Alert and awake. Laboratory Results - last 24 hr 05/03/19 05/04/19 05/04/19 12:18 05:35 05:35 WBC 6.4 RBC 3.99 L Hgb 11.3 L Hct 34 L MCV 84 MCH 28 MCHC 34 RDW 15 Plt Count 298 MPV 8.3 Neut % (Auto) 52.0 Lymph % (Auto) 33.7 [place] % (Auto) 9.1 Eos % (Auto) 4.1 Baso % (Auto) 1.1 Absolute Neuts (auto) 3.3 Absolute Lymphs (auto) 2.2 Absolute Monos (auto) 0.6 Absolute Eos (auto) 0.3 Absolute Basos (auto) 0.1 Absolute Nucleated RBC 0.0 Nucleated RBC % 0.1 Sodium 136 Potassium 3.7 Chloride 110 Carbon Dioxide 20 L Anion Gap 6 BUN 10 Creatinine 0.72 Est GFR ( Amer) 137.1 Est GFR (Non-Af Amer) 113.3 BUN/Creatinine Ratio 13.9 Glucose 96 POC Glucose (mg/dL) 115 H Calcium 8.2 L A&P 53M with SBO vs ileus, s/p dx lap which was unremarkable. Ileus resolving. -Advance to full liquids as tolerated. Consider advancing to soft diet later today if tolerating fulls. -Recommend renewing TPN for today. Consider stopping TPN after tomorrow if tolerating diet. -Encourage OOB. -DVT ppx
[2019-05-04] MEDS: Gabapentin CAP(*) 300 MG PO SCH ×3 (08:35→21:06)
[2019-05-04] MEDS: Tamsulosin CAP* 0.4 MG PO SCH (08:36)
[2019-05-04] MEDS: Baclofen TAB* 10 MG PO SCH ×2 (08:36→21:06)
[2019-05-04] MEDS: Topiramate TAB(*) 25 MG PO SCH (08:36)
[2019-05-04] MEDS: Pantoprazole IV* 40 MG IV SCH (08:36)
[2019-05-04] MEDS: Lidocaine PATCH 5%* 1 PATCH TRANSDERM SCH (08:47)
[2019-05-04] MEDS: levETIRAcetam IV* 250 MG in NS 0.9% 100 ML* 100 ML IVPB SCH (12:36)
--- NOTE | 2019-05-04 13:41 | PN ---
Subjective Date of Service: 05/04/19 Interval History: NGT removed.Tolerating Clears.c/o Buttock pain Family History: Unchanged from Admission Social History: Unchanged from Admission Past Medical History: Unchanged from Admission Objective Active Medications: Acetaminophen (Tylenol Tab*) 650 mg PO Q4H PRN PRN Reason: PAIN-MILD/TEMP >/= 100.4 Last Admin: 05/04/19 08:35 Dose: 650 mg Baclofen (Lioresal Tab*) 10 mg PO BID [facility] Last Admin: 05/04/19 08:36 Dose: 10 mg Benzocaine/Butamben/Tetracaine HCl (Cetacaine [place]* 2-2-14 %) 1 spray TOPICAL ONCE PRN PRN Reason: pain with insertion NG tube Last Admin: 04/28/19 20:36 Dose: 1 spray Bisacodyl (Dulcolax Supp*) 10 mg [place] BID [facility] Last Admin: 05/04/19 08:25 Dose: Not Given Enoxaparin Sodium (Lovenox(*)) 40 mg SUBCUT Q24H [facility] Last Admin: 05/03/19 23:15 Dose: 40 mg Gabapentin (Neurontin Cap(*)) 300 mg PO TID [facility] Last Admin: 05/04/19 08:35 Dose: 300 mg Heparin Sodium (Porcine) (Heparin Flush Picc/Ml/Cvc(*)) 1 - 3 ml FLUSH 0600, 1800 [facility]; Protocol Last Admin: 05/04/19 05:49 Dose: Not Given Levetiracetam 250 mg/ Sodium (Chloride) 102.5 mls @ 410 mls/hr IVPB Q12H [facility] Last Admin: 05/04/19 12:36 Dose: 410 mls/hr Dextrose 500 ml/ Amino Acids 850 ml/ Sterile Water 150 ml/Fat Emulsion Intravenous 250 ml/ Sodium Chloride 120 meq/Potassium Chloride 50 meq/Potassium Phosphate 15 mmole/Calcium Gluconate 15 meq/Magnesium Sulfate 10 meq/ Multivitamins 10 ml/ Trace Metals 1 ml/ Nutrition ( Parenteral) 1,855.721 mls @ 77.322 mls/hr CENTR 1700 [facility]; Protocol Last Admin: 05/03/19 16:56 Dose: 77.322 mls/hr Lidocaine (Lidoderm 5% Patch*) 1 patch TRANSDERM DAILY [facility] Last Admin: 05/04/19 08:47 Dose: 1 patch Metoclopramide HCl (Reglan Iv*) 5 mg IV Q6H [facility] Last Admin: 05/04/19 08:36 Dose: 5 mg Ondansetron HCl (Zofran Inj*) 4 mg IV Q6H PRN PRN Reason: NAUSEA Last Admin: 04/28/19 17:16 Dose: 4 mg Pantoprazole Sodium (Protonix Iv*) 40 mg IV Q24HR [facility] Last Admin: 05/04/19 08:36 Dose: 40 mg Pharmacy Profile Note (Scopolamine Patch Remove*) 1 note PATCH OFF Q72H [facility] Pharmacy Profile Note (Lidocaine Patch Remove*) 1 note N/A 2100 [facility] Last Admin: 05/04/19 00:16 Dose: Not Given Scopolamine (Transderm-Scop 1.5 Mg Patch*) 1 patch TRANSDERM Q72H [facility] Last Admin: 05/01/19 15:38 Dose: 1 patch Tamsulosin HCl (Flomax Cap*) 0.4 mg PO DAILY [facility] Last Admin: 05/04/19 08:36 Dose: 0.4 mg Topiramate (Topamax(*)) 100 mg PO BEDTIME [facility] Last Admin: 05/03/19 23:00 Dose: 100 mg Topiramate (Topamax(*)) 50 mg PO QAM [facility] Last Admin: 05/04/19 08:36 Dose: 50 mg Vital Signs - 8 hr 05/04/19 05/04/19 05/04/19 07:15 08:00 08:35 Temperature 97.6 F Pulse Rate 76 Respiratory 14 14 15 Rate Blood Pressure 131/71 (mmHg) O2 Sat by Pulse 96 96 Oximetry 05/04/19 05/04/19 10:26 11:01 Temperature 97.8 F Pulse Rate 71 Respiratory 18 16 Rate Blood Pressure 114/83 (mmHg) O2 Sat by Pulse 97 Oximetry Oxygen Devices in Use Now: None Eyes: No Scleral Icterus Ears/Nose/Mouth/Throat: NL Teeth, Lips, Gums Neck: NL Appearance and Movements; NL JVP Respiratory: Symmetrical Chest Expansion and Respiratory Effort Cardiovascular: NL Sounds; No Murmurs; No JVD Abdominal: - - soft,no rebound no guarding hypoactive BS Extremities: No Edema Neurological: Alert and Oriented x 3 Result Diagrams: 05/04/19 05:35 05/04/19 05:35 Microbiology and Other Data: Microbiology 04/16/19 15:32 Aerobic Blood Culture - Preliminary Blood Venous No Growth Day 1 Anaerobic Blood Culture - Preliminary No Growth Day 1 04/16/19 15:30 Aerobic Blood Culture - Preliminary Blood Venous No Growth Day 1 Anaerobic Blood Culture - Preliminary No Growth Day 1 Assess/Plan/Problems-Billing Assessment: Mr. 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 - Patient Problems (1) Bowel obstruction Current Visit: Yes Status: Acute Code(s): K56.609 - UNSP INTESTNL OBST, UNSP TO PARTIAL VERSUS COMPLETE OBST SNOMED Code(s): 91258479 Comment: - so far 2 attempts to remove NGT (04/23, 04/28) resulted in reinsertion - SBO :history of hernia repair only; opiates and constipation likely contributing - Hold opiates - AXR 04/27: improved; 04/28: dilated loops of bowel - Appreciate Surgery consult and input - Exploratory lap reveals no SBO; lysis of adhesions performed - having BMs, but unable to tolerate anything PO - on ppn.Transitioning to TPN after PICC placement today - continue NGT, conservative treatment - patient clinically appears to have SBO, but no SBO found on exploratory lap -D/w surgery. -On scheduled Reglan -NGT removed now -Tolerating Clear liquid diet -Advance to Full now and then to soft if tolerated -Surgery following closely (2) History of CVA with residual deficit Current Visit: Yes Status: Acute Code(s): I69.30 - UNSPECIFIED SEQUELAE OF CEREBRAL INFARCTION SNOMED Code(s): 050004171 Comment: - Expressive aphasia and right sided weakenss - Continue aspirin, atorvastatin (3) Acute buttock pain Current Visit: No Status: Acute Code(s): M79.1 - MYALGIA * DO NOT USE * SNOMED Code(s): 820089095 Comment: - intermittent c/o pain in L buttock - MRI without signs of osteo or joint infection - D/c ed clinda per ID; no need for any further abx (4) Full code status Current Visit: Yes Status: Acute Code(s): Z78.9 - OTHER SPECIFIED HEALTH STATUS SNOMED Code(s): 656259826 Comment: (5) Hypomagnesemia Current Visit: Yes Status: Acute Code(s): E83.42 - HYPOMAGNESEMIA SNOMED Code(s): 141066029 Comment: replaced (6) Hypokalemia Current Visit: Yes Status: Acute Code(s): E87.6 - HYPOKALEMIA SNOMED Code( s): 05904252 Comment: replacing and monitoring Status and Disposition: Inpatient. TPN today and if tolerates diet advance, can stop TPN tomorrow
[2019-05-04] MEDS: Scopolamine 1.5 mg* PATCH TRANSDERM SCH (15:01)
[2019-05-04] MEDS: Scopolamine PATCH Remove* 1 NOTE MISC PATCH OFF SCH (15:05)
[2019-05-04] MEDS: TPN* 24 HR with Dextrose 50% Water* 500 ML, Amino Acid Infusion 10%* 850 ML, Sterile Wa... CENTR SCH ×12 (16:47)
[2019-05-04] MEDS ORDERED: D10W 1000 ML BAG* 1,000 ML IV SCH (20:00)
[2019-05-04] MEDS: Topiramate TAB(*) 100 MG PO SCH (21:06)
[2019-05-04] MEDS: Enoxaparin(*) 40 MG/0.4 ML SYR SUBCUT SCH (21:07)
[2019-05-05] MEDS: levETIRAcetam IV* 250 MG in NS 0.9% 100 ML* 100 ML IVPB SCH ×2 (00:20→12:53)
[2019-05-05] MEDS: Metoclopramide IV* 5 MG/ML 2 ML VIAL IV SCH ×4 (03:58→22:21)
[2019-05-05] MEDS: Acetaminophen TAB* 325 MG PO PRN (06:41)
[2019-05-05 07:04] LABS: ABS Basophils 0.1 10^3/ul (0-0.2); ABS Eosinophils 0.2 10^3/ul (0-0.6); ABS Lymphocytes 2.2 10^3/ul (1.0-4.8); ABS Monocytes 0.5 10^3/ul (0-0.8); ABS Neutrophils 2.7 10^3/ul (1.5-7.7); Eosinophil % 3.2 %; Hematocrit 33 % (42-52); Hemoglobin 11.1 g/dL (14.0-18.0); Mean Corpuscular HGB Conc 34 g/dL (31-36); Mean Corpuscular Hemoglobin 29 pg (27-31); Mean Corpuscular Volume 85 fL (80-94); Mean Platelet Volume 8.3 fL (7.4-10.4); Platelet Count 280 10^3/uL (150-450); Red Cell Distribution Width 16 % (10-15); White Blood Count 5.6 10^3/uL (3.5-10.8)
[2019-05-05 07:18] LABS: BUN/Creatinine Ratio 11.1 (8-20); Calcium 7.9 mg/dL (8.6-10.3); EGFR African American 119.7 (>60); EGFR Non-African American 98.9 (>60); Potassium 3.4 mmol/L (3.5-5.0)
[2019-05-05] MEDS: Lidocaine PATCH 5%* 1 PATCH TRANSDERM SCH (08:44)
[2019-05-05] MEDS: Tamsulosin CAP* 0.4 MG PO SCH (08:45)
[2019-05-05] MEDS: Topiramate TAB(*) 25 MG PO SCH (08:45)
[2019-05-05] MEDS: Gabapentin CAP(*) 300 MG PO SCH ×3 (08:45→22:20)
[2019-05-05] MEDS: Pantoprazole IV* 40 MG IV SCH (08:45)
[2019-05-05] MEDS: Baclofen TAB* 10 MG PO SCH ×2 (08:46→22:21)
--- NOTE | 2019-05-05 11:06 | PN ---
Progress Note - Progress Note Date of Service: 05/05/19 SOAP: Subjective: Without complaint He is tolerating liquids, nurses report a small BM Objective: Temp Pulse Resp BP Pulse Ox 97.8 F 74 18 134/66 99 05/05/19 07:15 05/05/19 07:15 05/05/19 10:39 05/05/19 07:15 05/05/19 08:00 Intake & Output 05/03/19 05/04/19 05/05/19 05/06/19 06:59 06:59 06:59 06:59 Intake Total 4308 3382 2610 Output Total 3475 2675 1710 Balance 833 707 900 Intake: IV Fluids 2183 1620 1449 D10 319 LR 2183 1620 400 TPN 730 IVPB 209 205 210 Keppra 209 205 210 TPN/PPN 1916 1197 201 Oral 0 360 750 Output: NG Tube Drainage Amount 275 Urine 3200 2675 1710 Other: Estimated Void Medium Medium # Bowel Movements 1 1 2 Estimated Stool Amount Large Large Medium # Voids 2 1 PEX: Comfortable Abd is soft and distended. Incisions CDI. Few bowel sounds present. No tenderness Assessment: S/P laparoscopy-no findings of SBO at exploration Ileus-appears to be improving Plan: Continue to advance diet as tolerated and ordered Will follow
[2019-05-05] MEDS ORDERED: Potassium Chloride* LIQUID 20 MEQ/15 ML UDC PO ONE (11:57)
--- NOTE | 2019-05-05 16:42 | PN ---
Subjective Date of Service: 05/05/19 Interval History: Woke from sleep. Slow to wake up. Has no complaints Discussed with nurse he is tolerating full liquids without N/V or pain throughout the day Family History: Unchanged from Admission Social History: Unchanged from Admission Past Medical History: Unchanged from Admission Objective Active Medications: Acetaminophen (Tylenol Tab*) 650 mg PO Q4H PRN PRN Reason: PAIN-MILD/TEMP >/= 100.4 Last Admin: 05/05/19 06:41 Dose: 650 mg Baclofen (Lioresal Tab*) 10 mg PO BID [facility] Last Admin: 05/05/19 08:46 Dose: 10 mg Benzocaine/Butamben/Tetracaine HCl (Cetacaine [place]* 2-2-14 %) 1 spray TOPICAL ONCE PRN PRN Reason: pain with insertion NG tube Last Admin: 04/28/19 20:36 Dose: 1 spray Bisacodyl (Dulcolax Supp*) 10 mg DC BID [facility] Last Admin: 05/05/19 08:46 Dose: Not Given Enoxaparin Sodium (Lovenox(*)) 40 mg SUBCUT Q24H [facility] Last Admin: 05/04/19 21:07 Dose: 40 mg Gabapentin (Neurontin Cap(*)) 300 mg PO TID [facility] Last Admin: 05/05/19 14:39 Dose: 300 mg Levetiracetam 250 mg/ Sodium (Chloride) 102.5 mls @ 410 mls/hr IVPB Q12H [facility] Last Admin: 05/05/19 12:53 Dose: 410 mls/hr Lidocaine (Lidoderm 5% Patch*) 1 patch TRANSDERM DAILY [facility] Last Admin: 05/05/19 08:44 Dose: 1 patch Metoclopramide HCl (Reglan Iv*) 5 mg IV Q6H [facility] Last Admin: 05/05/19 16:31 Dose: 5 mg Ondansetron HCl (Zofran Inj*) 4 mg IV Q6H PRN PRN Reason: NAUSEA Last Admin: 04/28/19 17:16 Dose: 4 mg Pantoprazole Sodium (Protonix Iv*) 40 mg IV Q24HR [facility] Last Admin: 05/05/19 08:45 Dose: 40 mg Pharmacy Profile Note (Scopolamine Patch Remove*) 1 note PATCH OFF Q72H [facility] Last Admin: 05/04/19 15:05 Dose: 1 note Pharmacy Profile Note (Lidocaine Patch Remove*) 1 note N/A 2100 [facility] Last Admin: 05/04/19 21:12 Dose: 1 note Scopolamine (Transderm-Scop 1.5 Mg Patch*) 1 patch TRANSDERM Q72H [facility] Last Admin: 05/04/19 15:01 Dose: 1 patch Tamsulosin HCl (Flomax Cap*) 0.4 mg PO DAILY [facility] Last Admin: 05/05/19 08:45 Dose: 0.4 mg Topiramate (Topamax(*)) 100 mg PO BEDTIME [facility] Last Admin: 05/04/19 21:06 Dose: 100 mg Topiramate (Topamax(*)) 50 mg PO QAM [facility] Last Admin: 05/05/19 08:45 Dose: 50 mg Vital Signs - 8 hr 05/05/19 05/05/19 05/05/19 08:45 10:39 11:15 Temperature 97.4 F Pulse Rate 68 Respiratory 16 18 20 Rate Blood Pressure 139/64 (mmHg) O2 Sat by Pulse 100 Oximetry 05/05/19 05/05/19 05/05/19 14:39 15:15 16:00 Temperature 97.5 F Pulse Rate 80 Respiratory 16 22 Rate Blood Pressure 126/72 (mmHg) O2 Sat by Pulse 99 99 Oximetry Oxygen Devices in Use Now: None Appearance: NAD Eyes: No Scleral Icterus, PERRLA Ears/Nose/Mouth/Throat: Clear Oropharnyx, Mucous Membranes Moist Neck: NL Appearance and Movements; NL JVP, Trachea Midline Respiratory: Symmetrical Chest Expansion and Respiratory Effort, Clear to Auscultation Cardiovascular: RRR Abdominal: NL Sounds; No Tenderness; No Distention, No Hepatosplenomegaly Extremities: - - right BKA Neurological: Alert and Oriented x 3 Result Diagrams: 05/05/19 06:31 05/05/19 06:31 Microbiology and Other Data: Microbiology 04/16/19 15:32 Aerobic Blood Culture - Preliminary Blood Venous No Growth Day 1 Anaerobic Blood Culture - Preliminary No Growth Day 1 04/16/19 15:30 Aerobic Blood Culture - Preliminary Blood Venous No Growth Day 1 Anaerobic Blood Culture - Preliminary No Growth Day 1 Assess/Plan/Problems-Billing Assessment: Mr. 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
[2019-05-05] MEDS: Enoxaparin(*) 40 MG/0.4 ML SYR SUBCUT SCH (22:21)
[2019-05-05] MEDS: Topiramate TAB(*) 100 MG PO SCH (22:21)
[2019-05-06] MEDS: Lidocaine Patch REMOVE* 1 NOTE MISC SCH ×2 (01:40→21:05)
[2019-05-06] MEDS: Acetaminophen TAB* 325 MG PO PRN (03:16)
[2019-05-06] MEDS: Metoclopramide IV* 5 MG/ML 2 ML VIAL IV SCH ×4 (03:17→21:00)
[2019-05-06] MEDS: Lidocaine PATCH 5%* 1 PATCH TRANSDERM SCH (07:42)
[2019-05-06] MEDS: Gabapentin CAP(*) 300 MG PO SCH ×3 (07:43→20:59)
[2019-05-06] MEDS: Pantoprazole IV* 40 MG IV SCH (07:43)
[2019-05-06] MEDS: Baclofen TAB* 10 MG PO SCH ×2 (07:43→20:59)
[2019-05-06] MEDS: Tamsulosin CAP* 0.4 MG PO SCH (07:43)
[2019-05-06] MEDS: Topiramate TAB(*) 25 MG PO SCH (07:43)
[2019-05-06 08:01] LABS: Calcium 7.9 mg/dL (8.6-10.3); EGFR African American 108.8 (>60); EGFR Non-African American 89.9 (>60); Magnesium 1.4 mg/dL (1.9-2.7); Potassium 3.8 mmol/L (3.5-5.0)
[2019-05-06] MEDS: levETIRAcetam IV* 250 MG in NS 0.9% 100 ML* 100 ML IVPB SCH ×3 (12:32)
--- NOTE | 2019-05-06 15:24 | PN ---
Subjective Date of Service: 05/06/19 Interval History: HD 22 on 05/06 No acute overnight events Vitals stable Patient seen and examined at bedside. Patient sleepy this morning. But easily arousable. Had 1 BM yesterday; toleratin full liquid well; No abd pain , nausea and vomiting Objective Active Medications: Acetaminophen (Tylenol Tab*) 650 mg PO Q4H PRN PRN Reason: PAIN-MILD/TEMP >/= 100.4 Last Admin: 05/06/19 03:16 Dose: 650 mg Baclofen (Lioresal Tab*) 10 mg PO BID [facility] Last Admin: 05/06/19 07:43 Dose: 10 mg Benzocaine/Butamben/Tetracaine HCl (Cetacaine [place]* 2-2-14 %) 1 spray TOPICAL ONCE PRN PRN Reason: pain with insertion NG tube Last Admin: 04/28/19 20:36 Dose: 1 spray Bisacodyl (Dulcolax Supp*) 10 mg [place] BID [facility] Last Admin: 05/06/19 07:36 Dose: Not Given Enoxaparin Sodium (Lovenox(*)) 40 mg SUBCUT Q24H [facility] Last Admin: 05/05/19 22:21 Dose: 40 mg Gabapentin (Neurontin Cap(*)) 300 mg PO TID [facility] Last Admin: 05/06/19 07:43 Dose: 300 mg Lidocaine (Lidoderm 5% Patch*) 1 patch TRANSDERM DAILY [facility] Last Admin: 05/06/19 07:42 Dose: 1 patch Metoclopramide HCl (Reglan Iv*) 5 mg IV Q6H [facility] Last Admin: 05/06/19 11:06 Dose: 5 mg Ondansetron HCl (Zofran Inj*) 4 mg IV Q6H PRN PRN Reason: NAUSEA Last Admin: 04/28/19 17:16 Dose: 4 mg Pantoprazole Sodium (Protonix Tab*) 40 mg PO DAILY [facility] Pharmacy Profile Note (Scopolamine Patch Remove*) 1 note PATCH OFF Q72H [facility] Last Admin: 05/04/19 15:05 Dose: 1 note Pharmacy Profile Note (Lidocaine Patch Remove*) 1 note N/A 2100 [facility] Last Admin: 05/06/19 01:40 Dose: Not Given Scopolamine (Transderm-Scop 1.5 Mg Patch*) 1 patch TRANSDERM Q72H [facility] Last Admin: 05/04/19 15:01 Dose: 1 patch Tamsulosin HCl (Flomax Cap*) 0.4 mg PO DAILY [facility] Last Admin: 05/06/19 07:43 Dose: 0.4 mg Topiramate (Topamax(*)) 100 mg PO BEDTIME [facility] Last Admin: 05/05/19 22:21 Dose: 100 mg Topiramate (Topamax(*)) 50 mg PO QAM [facility] Last Admin: 05/06/19 07:43 Dose: 50 mg Vital Signs - 8 hr 05/06/19 05/06/19 05/06/19 07:43 07:57 10:46 Temperature Pulse Rate Respiratory 18 18 18 Rate Blood Pressure (mmHg) O2 Sat by Pulse 98 Oximetry 05/06/19 11:04 Temperature 97.5 F Pulse Rate 82 Respiratory 18 Rate Blood Pressure 104/61 (mmHg) O2 Sat by Pulse 100 Oximetry Oxygen Devices in Use Now: None Exam: Oxygen Devices in Use Now: None Appearance: NAD Eyes: No Scleral Icterus, PERRLA Ears/Nose/Mouth/Throat: Clear Oropharnyx, Mucous Membranes Moist Neck: NL Appearance and Movements; NL JVP, Trachea Midline Respiratory: Symmetrical Chest Expansion and Respiratory Effort, Clear to Auscultation Cardiovascular: RRR Abdominal: NL Sounds; No Tenderness; No Distention, No Hepatosplenomegaly laparoscopic incision clean and healthy Extremities: - - right AKA Neurological: Alert and Oriented x 3 Result Diagrams: 05/05/19 06:31 05/06/19 07:32 Microbiology and Other Data: Microbiology 04/16/19 15:32 Aerobic Blood Culture - Preliminary Blood Venous No Growth Day 1 Anaerobic Blood Culture - Preliminary No Growth Day 1 04/16/19 15:30 Aerobic Blood Culture - Preliminary Blood Venous No Growth Day 1 Anaerobic Blood Culture - Preliminary No Growth Day 1 Assess/Plan/Problems-Billing Assessment: Mr. 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 Found to have cellulitis. hospital stay complicated by SBO s/p exploratory laparoscopy04/25 - Patient Problems (1) Acute buttock pain Comment: - intermittent c/o pain in L buttock - MRI without signs of osteo or joint infection - D/c ed clinda -will f/u with Dr. Sumner as outpatient (2) Bowel obstruction Comment: - s/p ex-laparoscopy w/ SANTOS without notable obstruction - SBO :history of hernia repair only; opiates and constipation likely contributing - Hold opiates -scheduled reglan -soft diet today; advance as able -appreciate surgery input (3) History of CVA with residual deficit Comment: - Expressive aphasia and right sided weakenss - Continue aspirin, atorvastatin (4) Seizure disorder Current Visit: No Status: Acute Code(s): G40.909 - EPILEPSY, UNSP, NOT INTRACTABLE, WITHOUT STATUS EPILEPTICUS SNOMED Code(s): 195226013 Comment: -possible seizure with missed dose to Topamax 04/20, recurred overnight 04/24 -pt usually takes topiramate 50 a.m., 100 p.m.; while inpatient, only taking 100 bedtime -resume home doses -malabsorption in setting of bowel obstruction probably contributing -neurology consulted; thank you for recommendations -continue Topamax at home dose, gabapentin -patient tolerating PO well so d/c keppra (5) DVT prophylaxis Current Visit: No Status: Acute Code(s): TDT8037 - SNOMED Code(s): 186810491 Comment: - Lovenox (6) Full code status Current Visit: Yes Status: Acute Code(s): Z78.9 - OTHER SPECIFIED HEALTH STATUS SNOMED Code(s): 328633710 Comment: Status and Disposition: Inpatient. probable dc tomorrow Attending: Sharif Mead Attestation Documenting Resident: Marcos Dave Supervising Physician: Sharif Mead Attending/Supervising Physician Comment: Agree with assessment as outlined in note from today by Dr. Dave unless indicated here. Attestation: This service has been performed in part by a resident under the direction of a teaching physician.I, Sharif Mead, performed the service, or was physically present during the critical, or mercedes portions of the service, furnished by the resident. I participated in the management of the patient.
[2019-05-06] MEDS: Topiramate TAB(*) 100 MG PO SCH (21:00)
[2019-05-06] MEDS: Enoxaparin(*) 40 MG/0.4 ML SYR SUBCUT SCH (21:01)
[2019-05-07] MEDS: Metoclopramide IV* 5 MG/ML 2 ML VIAL IV SCH ×4 (05:02→20:47)
[2019-05-07] MEDS: Baclofen TAB* 10 MG PO SCH ×2 (10:45→20:44)
[2019-05-07] MEDS: Gabapentin CAP(*) 300 MG PO SCH ×3 (10:45→20:44)
[2019-05-07] MEDS: Lidocaine PATCH 5%* 1 PATCH TRANSDERM SCH (10:47)
[2019-05-07] MEDS: Pantoprazole TAB * 40 MG TAB PO SCH (10:47)
[2019-05-07] MEDS: Tamsulosin CAP* 0.4 MG PO SCH (10:47)
[2019-05-07] MEDS: Topiramate TAB(*) 25 MG PO SCH (10:47)
[2019-05-07] MEDS: Scopolamine 1.5 mg* PATCH TRANSDERM SCH (16:11)
[2019-05-07] MEDS: Scopolamine PATCH Remove* 1 NOTE MISC PATCH OFF SCH (16:15)
--- NOTE | 2019-05-07 16:47 | PN ---
Subjective Date of Service: 05/07/19 Interval History: Patient was tolerating diet yesterday His last BM was yesterday, not yet for today. Objective Active Medications: Acetaminophen (Tylenol Tab*) 650 mg PO Q4H PRN PRN Reason: PAIN-MILD/TEMP >/= 100.4 Last Admin: 05/06/19 03:16 Dose: 650 mg Baclofen (Lioresal Tab*) 10 mg PO BID [facility] Last Admin: 05/07/19 10:45 Dose: 10 mg Benzocaine/Butamben/Tetracaine HCl (Cetacaine [place]* 2-2-14 %) 1 spray TOPICAL ONCE PRN PRN Reason: pain with insertion NG tube Last Admin: 04/28/19 20:36 Dose: 1 spray Bisacodyl (Dulcolax Supp*) 10 mg MO BID [facility] Last Admin: 05/07/19 11:22 Dose: Not Given Enoxaparin Sodium (Lovenox(*)) 40 mg SUBCUT Q24H [facility] Last Admin: 05/06/19 21:01 Dose: 40 mg Gabapentin (Neurontin Cap(*)) 300 mg PO TID [facility] Last Admin: 05/07/19 16:10 Dose: 300 mg Lidocaine (Lidoderm 5% Patch*) 1 patch TRANSDERM DAILY [facility] Last Admin: 05/07/19 10:47 Dose: 1 patch Metoclopramide HCl (Reglan Iv*) 5 mg IV Q6H [facility] Last Admin: 05/07/19 10:47 Dose: 5 mg Ondansetron HCl (Zofran Inj*) 4 mg IV Q6H PRN PRN Reason: NAUSEA Last Admin: 04/28/19 17:16 Dose: 4 mg Pantoprazole Sodium (Protonix Tab*) 40 mg PO DAILY [facility] Last Admin: 05/07/19 10:47 Dose: 40 mg Pharmacy Profile Note (Scopolamine Patch Remove*) 1 note PATCH OFF Q72H [facility] Last Admin: 05/07/19 16:15 Dose: 1 note Pharmacy Profile Note (Lidocaine Patch Remove*) 1 note N/A 2100 [facility] Last Admin: 05/06/19 21:05 Dose: 1 note Scopolamine (Transderm-Scop 1.5 Mg Patch*) 1 patch TRANSDERM Q72H [facility] Last Admin: 05/07/19 16:11 Dose: 1 patch Tamsulosin HCl (Flomax Cap*) 0.4 mg PO DAILY [facility] Last Admin: 05/07/19 10:47 Dose: 0.4 mg Topiramate (Topamax(*)) 100 mg PO BEDTIME [facility] Last Admin: 05/06/19 21:00 Dose: 100 mg Topiramate (Topamax(*)) 50 mg PO QAM [facility] Last Admin: 05/07/19 10:47 Dose: 50 mg Vital Signs - 8 hr 05/07/19 05/07/19 05/07/19 10:45 11:27 15:53 Temperature 98.5 F Pulse Rate 82 Respiratory 18 18 18 Rate Blood Pressure 111/64 (mmHg) O2 Sat by Pulse 98 Oximetry 05/07/19 05/07/19 16:09 16:10 Temperature 98.0 F Pulse Rate 74 Respiratory 16 16 Rate Blood Pressure 118/68 (mmHg) O2 Sat by Pulse 100 Oximetry Oxygen Devices in Use Now: None Exam: Oxygen Devices in Use Now: None Appearance: NAD Eyes: No Scleral Icterus, PERRLA Ears/Nose/Mouth/Throat: Clear Oropharnyx, Mucous Membranes Moist Neck: NL Appearance and Movements; NL JVP, Trachea Midline Respiratory: Symmetrical Chest Expansion and Respiratory Effort, Clear to Auscultation Cardiovascular: RRR Abdominal: NL Sounds; No Tenderness; No Distention, No Hepatosplenomegaly. laparoscopic incision clean and healthy Extremities: - - right AKA, no erythema noted on buttock. Neurological: Alert and Oriented x 3 Result Diagrams: 05/05/19 06:31 05/06/19 07:32 Microbiology and Other Data: Microbiology 04/16/19 15:32 Aerobic Blood Culture - Preliminary Blood Venous No Growth Day 1 Anaerobic Blood Culture - Preliminary No Growth Day 1 04/16/19 15:30 Aerobic Blood Culture - Preliminary Blood Venous No Growth Day 1 Anaerobic Blood Culture - Preliminary No Growth Day 1 Assess/Plan/Problems-Billing Assessment: Mr. Cali is a 53 yo M with PMH of CVA with resulting aphasia and right sided hemiparesis, seizure disorder, presented with back and right buttock pain with history of ischium osteomyelitis, but turned out no new infection found. His hospital stay complicated by ileus s/p exploratory laparoscopy 04/25. - Patient Problems (1) Acute buttock pain Comment: - intermittent c/o pain in L buttock - MRI without signs of osteo or joint infection - D/c ed clinda -will f/u with Dr. Sumner as outpatient (2) Bowel obstruction Comment: - initially thought to be bowel obstruction,but turned out probably ileus after op - s/p ex-laparoscopy w/ SANTOS without notable obstruction - history of hernia repair ; opiates and constipation likely contributing - Hold opiates - scheduled reglan -soft diet today; advance as able -appreciate surgery input (3) History of CVA with residual deficit Comment: - Expressive aphasia and right sided weakenss - Continue aspirin, atorvastatin (4) Seizure disorder Current Visit: No Status: Acute Code(s): G40.909 - EPILEPSY, UNSP, NOT INTRACTABLE, WITHOUT STATUS EPILEPTICUS SNOMED Code(s): 523818760 Comment: -possible seizure with missed dose to Topamax 04/20, recurred overnight 04/24 -pt usually takes topiramate 50 a.m., 100 p.m.; while inpatient, only taking 100 bedtime -resume home doses -malabsorption in setting of ileus probably contributing -appreciate neuro recs, continue Topamax at home dose, gabapentin -patient tolerating PO well so d/c keppra (5) DVT prophylaxis Current Visit: No Status: Acute Code(s): [id number] - SNOMED Code(s): 351307676 Comment: - Lovenox Status and Disposition: Inpatient. Recurve application sent out PT Attestation Documenting Resident: Riddhi Clark Supervising Physician: Sharif Mead Attending/Supervising Physician Comment: Agree with plan as outlined in note from today by Dr. Clark unless indicated here. Ileus s/p ex-lap with VIRGIL without notable obstruction now tolerating food but will need placement. Attestation: This service has been performed in part by a resident under the direction of a teaching physician.I, Sharif Mead, performed the service, or was physically present during the critical, or mercedes portions of the service, furnished by the resident. I participated in the management of the patient.
[2019-05-07] MEDS: Topiramate TAB(*) 100 MG PO SCH (20:44)
[2019-05-07] MEDS: Enoxaparin(*) 40 MG/0.4 ML SYR SUBCUT SCH (20:47)
[2019-05-07] MEDS: Lidocaine Patch REMOVE* 1 NOTE MISC SCH (20:54)
[2019-05-08] MEDS: Metoclopramide IV* 5 MG/ML 2 ML VIAL IV SCH ×3 (04:33→16:04)
[2019-05-08] MEDS: Topiramate TAB(*) 25 MG PO SCH (08:40)
[2019-05-08] MEDS: Gabapentin CAP(*) 300 MG PO SCH ×2 (08:41→16:03)
[2019-05-08] MEDS: Pantoprazole TAB * 40 MG TAB PO SCH (08:42)
[2019-05-08] MEDS: Lidocaine PATCH 5%* 1 PATCH TRANSDERM SCH (08:42)
[2019-05-08] MEDS: Tamsulosin CAP* 0.4 MG PO SCH (08:42)
[2019-05-08] MEDS: Baclofen TAB* 10 MG PO SCH (08:42)
[2019-05-08 12:32] VITALS: BP 127/71
--- NOTE | 2019-05-09 19:14 | DS ---
Resident Discharge Summary Discharge Summary: Date of Admission: 04/15/19 Date of Discharge: 05/08/19 Admitting MD: Brittney Nick DO Attending MD: Sharif Mead MD Primary Care Physician: Bobo Hathaway MD Home Medications Medication Instructions Recorded Confirmed Type Aspirin EC TAB* [Ecotrin EC Low 81 mg PO DAILY 05/03/12 04/15/19 History Dose 81 MG*] Atorvastatin* [Lipitor*] 80 mg PO DAILY 05/03/12 04/15/19 History Baclofen TAB* [Lioresal TAB*] 10 mg PO BID 05/03/12 04/15/19 History Gabapentin* 300 mg PO TID 05/03/12 04/15/19 History Acetaminophen TAB* [Tylenol TAB*] 650 mg PO Q4H PRN 06/01/17 12/26/17 History Docusate CAP* [Colace Cap*] 100 mg PO BID 06/01/17 04/15/19 History Latanoprost 0.005%* [Xalatan 1 drop BOTH EYES QPM 06/01/17 12/26/17 History 0.005%*] Magnesium Hydroxide LIQ* [Milk of 30 ml PO DAILY PRN 06/01/17 12/26/17 History Magnesia LIQ*] Omeprazole CAP (NF) [Prilosec CAP* 20 mg PO DAILY 06/01/17 04/15/19 History 20 MG] Topiramate TAB(*) [Topamax 100 mg 100 mg PO BEDTIME 06/01/17 04/15/19 History tab] Topiramate TAB(*) [Topamax 25 MG 50 mg PO QAM 06/01/17 12/26/17 History tab] Sennosides [Senna] 8.6 mg PO DAILY #30 tablet 06/03/17 12/26/17 Rx Fenofibrate [Tricor 160 MG] 160 mg PO DAILY 12/26/17 12/26/17 History Oxybutynin TAB* [Ditropan TAB*] 2.5 mg PO BID 04/15/19 04/15/19 History Tamsulosin CAP* [Flomax CAP*] 0.4 mg PO DAILY 04/15/19 04/15/19 History Disposition: Home Condition: Stable to Home Primary Diagnosis: 1. Ileus Secondary Diagnosis: 1. 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 Right AKA 3. Peripheral vascular disease 4. History of pulmonary embolism 5. Migraine 6. Seizure disorder 7. Hypertension 8. Dyslipidemia 9. GERD 10. Glaucoma Diagnostic Imaging: Abd/pelvis CT 04/15/19: a sinus tract/ulceration extends from the inferior right gluteal skin surface to right ischial tuberosity. There is no collection or osteomyelitis seen. Abdominal CT 04/23/19: small bowel obstruction, transition point is below the umbilicus near the anterior abdominal wall. Diverticulosis is noted with slightly decompressed colon. Hospital Course: Al Cali is a 53 years old male who has history of stroke in 2008 with residual aphasia, right AKA, who presented to [facility] due to back and right buttock pain. He was recently treated for subacute osteomyelitis of right ischial tuberosity, and found to have tachycardia and leukocytosis which is concerning for infection on presentation. Please refer to H&P dated 04/15/19 for more information. He was worked up for infection with the assistance of ID art sales consultant. He had an Abd/pelvis CT showing sinus tract inferior right gluteal skin surface tor right ischial tuberosity, but no fluid or osteomyelitis showing in MRI. He was treated for cellulitis, and he responded well. His stay complicated by ileus. He developed new abdominal pain during his course , and was found to have small bowel obstruction in CT scan. He failed conservative management, and an exploratory laparoscopy was performed on . No bowel obstruction was seen during the operation, lysis of adhesion was performed. He improved subsequently and was able to tolerate normal diet well on discharge. He also had and episode of seizure like activity during his hospitalization. Neurologist was consulted, his seizure medication Topamax was increased to 50mg in the morning and 100mg at night. He was covered with iv keppra in a short term when he was NPO, and weaned off it afterward. He will continue to follow up with neurologist after discharge. On the day of discharge, he felt good and keen for home. We did find a placement for him in [facility], however her mother felt he could be able to handle everything at home as he is getting so much better. Thus eventually he was discharged back home with home visiting services set up. Follow Up Instructions: Follow up with your primary care within 2 weeks to follow up. Continue to follow up with neurologist. Please seek medical advise if any abdominal pain, nausea or vomiting. In case of an emergency or after clinic hours, please go to your nearest Emergency Department. You may also call the [facility] dough mixing machine operator at . Attestation Documenting Resident: Riddhi Clark Supervising Physician: Sharif Mead Attending/Supervising Physician Comment: Agree with discharge details outlined here by Dr. Clark unless indicated here. Prolonged ileus s/p ex-lap with VIRGIL without identification of obstruction. Plan was for discharge to [facility] however patient in conjunction with mother decided they wanted to return home. Our recommendations were discussed with patient and mother however they declined placement and returned home. While not ideal this was felt to be a safe discharge. Attestation: This service has been performed in part by a resident under the direction of a teaching physician.I, Sharif Mead , performed the service, or was physically present during the critical, or mercedes portions of the service, furnished by the resident. I participated in the management of the patient.
== END 2019-05-08 17:00 | disposition home health service (06) | DRG 951 ==
LOC: ED 13:54 → MEDTELE 18:29 → MED 04-17 21:53
PROVIDERS: ADMIT Hospitalist; ATTEND Internal Medicine
PROC: 0DNU4ZZ Release Omentum, Percutaneous Endoscopic Approach (ICD-10-PCS; principal; 2019-04-25 18:15)
PROC: 05HY33Z Insertion of Infusion Device into Upper Vein, Percutaneous Approach (ICD-10-PCS; 2019-05-01)
PROC: 3E0436Z Introduction of Nutritional Substance into Central Vein, Percutaneous Approach (ICD-10-PCS; 2019-05-01)
DX: M25.551 Pain in right hip (principal); J69.0 Pneumonitis due to inhalation of food and vomit; K90.9 Intestinal malabsorption, unspecified; K56.7 Ileus, unspecified; I69.351 Hemiplegia and hemiparesis following cerebral infarction affecting right dominant side; E83.42 Hypomagnesemia; I69.320 Aphasia following cerebral infarction; I73.9 Peripheral vascular disease, unspecified; G40.909 Epilepsy, unspecified, not intractable, without status epilepticus; I10 Essential (primary) hypertension; E78.5 Hyperlipidemia, unspecified; K21.9 Gastro-esophageal reflux disease without esophagitis; K66.0 Peritoneal adhesions (postprocedural) (postinfection); R09.02 Hypoxemia; E87.6 Hypokalemia; D72.829 Elevated white blood cell count, unspecified; N40.0 Benign prostatic hyperplasia without lower urinary tract symptoms; E66.9 Obesity, unspecified; G43.909 Migraine, unspecified, not intractable, without status migrainosus; H40.9 Unspecified glaucoma; Z89.611 Acquired absence of right leg above knee; Z86.711 Personal history of pulmonary embolism; Z79.82 Long term (current) use of aspirin; Z79.899 Other long term (current) drug therapy; Z88.0 Allergy status to penicillin; Z88.8 Allergy status to other drugs, medicaments and biological substances; Z91.040 Latex allergy status; Z82.49 Family history of ischemic heart disease and other diseases of the circulatory system; Z82.61 Family history of arthritis; Z68.33 Body mass index [BMI] 33.0-33.9, adult
CPT/HCPCS: 36415; 71045; 71046; 74018; 74019; 74176; 74177; 80048; 80053; 80201; 81003; 81015; 83605; 83735; 84100; 84478; 85025; 85027; 86140; 87040; 87086; 93005; 96365; 96375; 99284; A9270-GY; C1751; J0330; J0690; J0780; J1100; J1650; J1885; J2250; J2270; J2405; J2704; J2765; J2997; J3010; J3475; J3480; J3490; Q9967

== ENCOUNTER 2019-05-09 15:37 | Observation (INO) | payer MEDICAID ==
--- OUTSIDE RECORDS SUMMARY | 2019-05-09 15:43 | XMS REPORT ---
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 Aphasia Aphasia Diagnosis Active Angelica following following 11-28 Noelle unspecified unspecified [id number] cerebrovasc cerebrovasc ular ular disease disease Chronic Chronic Diagnosis Active Angelica venous venous 11-28 Noelle hypertensio hypertensio [id number] n w/o comp n w/o comp of l low of l low extrem extrem Essential Essential Diagnosis Active Angelica (primary) (primary) 11-28 Noelle hypertensio hypertensio [id number] n n 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-28 Noelle emo def emo def [id number] following following unsp unsp cerebvasc cerebvasc disease disease 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, disorder, [id number] recurrent, recurrent, unspecified unspecified Unspecified Unspecified Diagnosis Active Angelica open-angle open-angle Noelle glaucoma, glaucoma, [id number] stage stage unspecified unspecified Mixed Mixed Diagnosis Active Angelica hyperlipide hyperlipide Noelle lilly lilly [id number] Acquired Acquired Diagnosis Active Angelica absence of absence of Noelle unspecified unspecified [id number] leg above leg above knee knee Thrombotic Thrombotic Diagnosis Active Angelica microangiop microangiop Noelle rehan rehan [id number] Medication knowledge/s Meds Resolve 2015-09-16 Jackie darnell d 2-11 18:04:00 Sinnigen deficit: pt 15:50: [id number] 00 Diagnoses knowledge/s Diagnoses Resolve 2016-03-17 Tammee kill d 2- 15:00:00 Cesar-Hor deficit: pt 15:50: an 00 Diagnoses knowledge/s Diagnoses Resolve 2016-03-17 Tammee kill d 2-11 15:00:00 Cesar-Hor deficit: cg 15:50: an 00 Pain knowledge/s Pain Mgmt Resolve 2015-09-16 Luz Maria kill d 3 18:04:00 Samuels deficit: pt 15:45: [id number] 00 Cardio hypertensio Cardiovasc Resolve 2016-09-08 Luz Maria n ular d 3 21:45:00 Samuels 15:45: [id number] 00 Integument skin Integument Resolve 2015-09-16 Luz Maria integrity d 05-14 18:04:00 Samuels risk 15:45: [id number] 00 Nutrition knowledge/s Nutrition Resolve 2015-12-10 Luz Maria kill d 3 15:20:00 Samuels deficit: pt 15:45: [id number] 00 Elimination constipatio Eliminatio Resolve 2015-09-16 Luz Maria n n d 05-14 18:04:00 Samuels 15:45: [id number] 00 Elimination urinary Eliminatio Resolve 2015-05-15 Luz Maria incontinenc n d 3 15:45:00 Arvind e 15:45: [id number] 00 Activity ADL Activity Resolve 2016-03-17 Luz Maria assistance d 3 15:00:00 Samuels required 15:45: [id number] 00 Safety fall risk Safety Resolve 2015-09-16 Luz Maria factor d 05-14 18:04:00 Samuels present 15:45: [id number] 00 Medication injectable Meds Resolve 2015-09-16 Luz Maria med d 05-14 18:04:00 Arvind assistance 15:45: [id number] required 00 Musculoskel transfer Musculoske Unknown Luz Maria etal assistance letal 05-14 Arvind required 15:45: [id number] 00 Safety knowledge/s Safety Resolve 2015-09-16 Jackie kill d 3-17 18:04:00 Sinnigen deficit: pt 17:45: [id number] 00 Respiratory lung sounds Respirator Resolve 2015-07-16 Luz Maria deficit y d 07-15 18:27:00 Arvind 18:27: [id number] 00 Elimination urinary Eliminatio Resolve 2015-08-15 Luz Maria incontinenc n d 07-15 16:23:00 Samuels e 18:27: [id number] 00 Neuro depressive Neuro/Emot Resolve 2016-03-17 Luz Maria feelings ion d 07-15 15:00:00 Samuels present 18:27: [id number] 00 Elimination urinary Eliminatio Resolve 2015-09-16 Luz Maria incontinenc n d 09-15 18:04:00 Arvind e 18:04: [id number] 00 Elimination urinary Eliminatio Resolve 2015-11-12 Luz Maria incontinenc n d 10-02 16:30:00 Arvind e 15:29: [id number] 00 Cardio edema Cardiovasc Resolve 2016-09-08 Shoshana ular d 10-15 21:45:00 Jerram [employer] 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 EXAMINER 15:00: [id number] 00 Sensory impaired Sensory Resolve 2016-03-17 Shoshana verbal d 10-15 15:00:00 Jerram [employer]PUTER EXAMINER communicati 15:00: [id number] on 00 Elimination recurring Eliminatio Resolve 2015-12-10 Shoshana UTI n d 10-15 15:20:00 Jerram FOR[employer]IC COMPUTER EXAMINER 15:00: [id number] 00 Pain knowledge/s Pain Mgmt Resolve 2015-12-10 Luz Maria kill gretta 11-11 15:20:00 Arvind deficit: pt 16:30: [id number] 00 Cardio hypertensio Cardiovasc Unknown Luz Maria n rory 11-11 Arvind 16:30: [id number] 00 Elimination diarrhea Eliminatio Resolve 2015-12-10 Luz Maria n d 11-11 15:20:00 Arvind 16:30: [id number] 00 Medication oral med Meds Resolve 2016-09-08 Luz Maria assistance d 11-11 21:45:00 Samuels required 16:30: [id number] 00 Medication knowledge/s Meds Resolve 2016-03-17 Luz Maria kill d 8-31 15:00:00 Samuels deficit: pt 16:30: [id number] 00 Elimination urinary Eliminatio Resolve 2015-12-10 Almaz frequency n d 11-12 15:20:00 Reva 15:00: [id number] 00 Elimination urinary Eliminatio Resolve 2015-12-10 Almaz incontinenc n d 11-19 15:20:00 Reva e 14:00: [id number] 00 Safety fall risk Safety Resolve 2016-03-17 Luz Maria factor d 9 15:00:00 Samuels present 15:20: [id number] 00 Nutrition knowledge/s Nutrition Resolve 2015-032016-03-17 Almaz kill d 0 15:00:00 Reva deficit: pt 13:15: [id number] 00 Elimination urinary Eliminatio Resolve 2015-032016-01-07 Luz Maria incontinenc n d 0-20 16:01:00 Arvind e 15:28: [id number] 00 Pain frequent Pain Mgmt Resolve 2015-032018-04-26 Luz Maria pain d 0-26 15:08:00 Samuels 16:01: [id number] 00 Respiratory lung sounds Respirator Resolve 2015-032016-03-17 Luz Maria deficit y d 0-26 15:00:00 Arvind 16:01: [id number] 00 Respiratory dyspnea Respirator Resolve 2016-09-08 Luz Maria present y d 03-17 21:45:00 Arvind 15:00: [id number] 00 Integument pressure Integument Resolve 2018-06-27 Luz Maria ulcer d 03-17 15:00:00 Samuels present 15:00: [id number] 00 Integument skin Integument Resolve 2016-03-17 Luz Maria integrity d 1 15:00:00 Samuels risk 15:00: [id number] 00 Nutrition changing Nutrition Resolve 2016-09-20 Luz Maria weight/appe d 03-17 15:30:00 Arvind tite 15:00: [id number] 00 Nutrition knowledge/s Nutrition Resolve 2016-08-16 Almaz kill d 1-12 15:30:00 Reva deficit: pt 16:10: [id number] 00 Medication knowledge/s Meds Resolve 2016-09-08 Almaz kill d 1-12 21:45:00 Reva deficit: pt 16:10: [id number] 00 Nutrition nutritional Nutrition Resolve 2016-08-16 Luz Maria restriction d 2- 15:30:00 Samuels s 15:30: [id number] 00 Musculoskel transfer Musculoske Unknown Luz Maria etal assistance letal 05-06 Samuels required 15:15: [id number] 00 Musculoskel requires Musculoske Unknown Luz Maria etal human letal 05-06 Samuels assist to 15:15: [id number] leave home 00 Sensory impaired Sensory Resolve 2016-10-06 Stephanie verbal d 3 15:00:00 Haile communicati 15:35: [id number] on 00 Safety fall risk Safety Resolve 2016-08-16 Stephanie factor d 3 15:30:00 Haile present 15:35: [id number] 00 Safety risk for Safety Resolve 2016-08-16 Stephanie hospitaliza d 3 15:30:00 Haile tion 15:35: [id number] 00 Integument stasis Integument Resolve 2016-09-08 Stephanie ulcer d 07-08 21:45:00 Haile present 15:30: [id number] 00 Integument skin Integument Resolve 2016-09-08 Stephanie integrity d 07-08 21:45:00 Haile risk 15:30: [id number] 00 Neuro impaired Neuro/Emot Resolve 2016-10-06 Stephanie decision-ma ion d 08-10 15:00:00 Haile jacinda 16:00: [id number] 00 Safety risk for Safety Resolve 2016-09-08 Stephanie hospitaliza d 6- 21:45:00 Haile tion 16:00: [id number] 00 Musculoskel requires Musculoske Unknown Stephanie etal human letal 08-23 Haile assist to 16:00: [id number] leave home 00 Nutrition nutritional Nutrition Resolve 2016-09-20 Stephanie restriction d 09-06 15:30:00 Haile s 15:20: [id number] 00 Neuro depressive Neuro/Emot Resolve 2018-06-20 Stephanie feelings ion d 09-06 16:00:00 Haile present 15:20: [id number] 00 Safety fall risk Safety Resolve 2016-09-08 Stephanie factor d 09-06 21:45:00 Haile present 15:20: [id number] 00 Musculoskel transfer Musculoske Unknown Stephanie etal assistance letal 09-06 Haile required 15:20: [id number] 00 Pain frequent Pain Mgmt Unknown Stephanie pain 10-01 Haile 15:20: [id number] 00 Cardio edema Cardiovasc Resolve 2017-03-03 Stephanie ular d 10-01 16:22:00 Haile 15:20: [id number] 00 Activity ADL Activity Resolve 2016-10-06 Stephanie assistance d 10-01 15:00:00 Haile required 15:20: [id number] 00 Safety risk for Safety Resolve 2016-10-06 Stephanie hospitaliza d 10-01 15:00:00 Haile tion 15:20: [id number] 00 Musculoskel requires Musculoske Unknown Stephanie etal human letal 10-01 Haile assist to 15:20: [id number] leave home 00 Medication knowledge/s Meds Resolve 2016-10-06 Almaz kill d 10-04 15:00:00 Reva deficit: pt 14:55: [id number] 00 Medication knowledge/s Meds Resolve 2017-03-03 Almaz kill d 10-14 16:22:00 Reva deficit: pt 15:30: [id number] 00 Safety can be left Safety Resolve 2017-03-03 Demetria alone for d 10-21 16:22:00 Lizett only short 15:00: [id number] periods 00 Sensory impaired Sensory Resolve 2017-03-03 Irene verbal d 10-28 16:22:00 Mara majano 16:00: [id number] on 00 Neuro impaired Neuro/Emot Resolve 2017-03-03 Irene decision-ma ion d 10-28 16:22:00 Mara monaco 16:00: [id number] 00 Musculoskel requires Musculoske Unknown Irene etal special letal 10-28 Mara noelat 16:00: [id number] ion 00 Nutrition nutritional Nutrition Resolve 2017-03-03 Bryan restriction d 11-05 16:22:00 Mason RN s 15:28: [id number] 00 Safety fall risk Safety Resolve 2017-03-03 Bryan factor d 11-05 16:22:00 Mason RN present 15:28: [id number] 00 Musculoskel transfer Musculoske Unknown Bryan etal assistance letal 11-05 Mason RN required 15:28: [id number] 00 Respiratory dyspnea Respirator Resolve 2017-03-03 Almaz present y d 11-11 16:22:00 Reva 15:30: [id number] 00 Respiratory lung sounds Respirator Resolve 2016-032017-03-03 Sindhu deficit y d 0-12 16:22:00 Uribe 16:22: [id number] 00 Safety risk for Safety Resolve 2016-032017-03-03 Sindhu hospitaliza d 0-12 16:22:00 Uribe tion 16:22: [id number] 00 Integument pressure Integument Unknown 2016-03 Angelica ulcer 0-23 Farhat present 16:00: [id number] 00 Integument stasis Integument Active 2016-03 Angelica ulcer 0-23 Farhat present 16:00: [id number] 00 Integument skin Integument Resolve 2016-032017-03-03 Angelica integrity d 0-23 16:22:00 Kincaid risk 16:00: [id number] 00 Elimination urinary Eliminatio Resolve 2016-032017-03-03 Angelica incontinenc n d 04-12 16:22:00 Farhat e 17:25: [id number] 00 Elimination constipatio Eliminatio Resolve 2016-032017-03-03 Angelica n n d 04-12 16:22:00 Kincaid 17:25: [id number] 00 Integument other wound Integument Resolve 2016-032017-03-03 Angelica present d 2- 16:22:00 Farhat 16:22: [id number] 00 Elimination bowel Eliminatio Resolve 2016-032017-03-03 Angelica incontinenc n d 05-04 16:22:00 Kincaid e 16:22: [id number] 00 Endo/Enrique anti-coagul Endo/Enrique Resolve 2016-032018-06-20 Angelica ation d 05-09 16:00:00 Farhat therapy 16:03: [id number] 00 Elimination urinary Eliminatio Resolve 2016-032017-11-24 Angelica incontinenc n d 05-09 16:55:00 Kincaid e 16:03: [id number] 00 Elimination bowel Eliminatio Resolve 2016-032017-11-24 Angelica incontinenc n d 05-09 16:55:00 Kincaid e 16:03: [id number] 00 Respiratory dyspnea Respirator Resolve 2016-032018-03-01 Almaz present y d 05-11 15:31:00 Reva 15:50: [id number] 00 Safety fall risk Safety Resolve 2017-11-24 Sindhu factor d 03-15 16:55:00 Uribe present 16:20: [id number] 00 Safety risk for Safety Resolve 2017-11-24 Sindhu hospitaliza d 03-15 16:55:00 Uribe tion 16:20: [id number] 00 Safety can be left Safety Resolve 2019-04-12 Sindhu alone for d 03-15 15:48:00 Uribe only short 16:20: [id number] periods 00 24 Hr Diet knowledge/s NT: 24Hr Resolve 2017-04-13 Bia kill Diet d 04-13 17:00:00 [place] deficit - 17:00: [id number] pt 00 24 Hr Diet knowledge/s NT: 24Hr Resolve 2017-04-13 Bia kill Diet d 04-13 17:00:00 [place] deficit - 17:00: [id number] cg 00 Integument skin Integument Resolve 2017-11-24 Angelica integrity d 05-06 16:55:00 Farhat risk 16:38: [id number] 00 Neuro impaired Neuro/Emot Resolve 2019-04-12 Angelica maguire-ma ion d 05-06 15:48:00 Kinc[place] jacinda 16:38: [id number] 00 Safety cannot be Safety Resolve 2019-04-12 Angelica left alone d 05-06 15:48:00 Farhat 16:38: [id number] 00 Musculoskel requires Musculoske Resolve 2018-06-20 Angelica etal human letal d 05-06 16:00:00 Farhat assist to 16:38: [id number] leave home 00 Musculoskel requires Musculoske Resolve 2018-06-20 Angelica etal special letal d 05-06 16:00:00 Farhat transportat 16:38: [id number] ion 00 Musculoskel transfer Musculoske Resolve 2018-06-20 Angelica etal assistance letal d 05-06 16:00:00 Farhat required 16:38: [id number] 00 Test/Treatm venipunctur Test/Injec Resolve 2019-04-12 Angelica ent e ordered t/Fabrice d 06-03 15:48:00 Noelle [id number] Elimination constipatio Eliminatio Resolve 2017-11-24 Angelica n n d 06-03 16:55:00 Noelle 19:06: [id number] 00 Neuro confusion Neuro/Emot Resolve 2019-04-12 Angelica present ion d 06-03 15:48:00 Noelle 19:06: [id number] 00 Medication potential Meds Resolve 2018-06-20 Angelica clinically d 06-03 16:00:00 Noelle significant 19:06: [id number] medication 00 issue Medication oral med Meds Resolve 2018-06-06 Angelica assistance d 06-03 15:00:00 Noelle required 19:06: [id number] 00 Medication knowledge/s Meds Resolve 2018-06-20 Angelica kill d 06-03 16:00:00 Noelle deficit: pt 19:06: [id number] 00 Elimination urinary Eliminatio Resolve 2017-11-24 Angelica urgency n d 09-29 16:55:00 Noelle 15:32: [id number] 00 Elimination urinary Eliminatio Resolve 2017-11-24 Angelica frequency n d 7-19 16:55:00 Noelle 15:32: [id number] 00 Safety risk for Safety Resolve 2018-04-20 Almaz hospitaliza d 9-20 14:59:00 Reva tion 16:31: [id number] 00 Integument skin Integument Resolve 2017-032018-04-20 Angelica integrity d 0-18 14:59:00 Noelle risk 14:11: [id number] 00 Elimination urinary Eliminatio Resolve 2017-032018-12-21 Angelica incontinenc n d 0-18 15:15:00 Noelle e 14:11: [id number] 00 Safety fall risk Safety Resolve 2017-032018-04-20 Angelica factor d 0-18 14:59:00 Noelle present 14:11: [id number] 00 Integument pressure Integument Unknown Angelica ulcer 04-06 Noelle present 14:59: [id number] 00 Integument skin Integument Resolve 2018-06-27 Angelica integrity d 2-13 15:00:00 Noelle risk 15:08: [id number] 00 Elimination recurring Eliminatio Resolve 2018-12-21 Angelica UTI n d 2-13 15:15:00 Noelle 15:08: [id number] 00 Activity ADL Activity Resolve 2019-04-12 Angelica assistance d 2-13 15:48:00 Noelle required 15:08: [id number] 00 Activity self-care Activity Resolve 2018-11-30 Angelica deficit d 2-13 14:26:00 Noelle 15:08: [id number] 00 Safety risk for Safety Resolve 2018-06-20 Angelica hospitaliza d 2-13 16:00:00 Noelle tion 15:08: [id number] 00 Safety fall risk Safety Resolve 2018-06-20 Angelica factor d 2-13 16:00:00 Noelle present 15:08: [id number] 00 Nutrition knowledge/s Nutrition Resolve 2019-04-12 Angelica kill d 4-09 15:48:00 Noelle deficit: pt 16:00: [id number] 00 Nutrition nutritional Nutrition Active Angelica restriction 06-20 Noelle s 16:00: [id number] 00 Endo/Enrique anti-coagul Endo/Enrique Resolve 2019-04-12 Angelica ation d 4-16 15:48:00 Noelle therapy 15:00: [id number] 00 Safety fall risk Safety Resolve 2019-04-12 Angelica factor d 16 15:48:00 Noelle present 15:00: [id number] 00 Safety risk for Safety Resolve 2019-04-12 Angelica hospitaliza d 06-27 15:48:00 Noelle tion 15:00: [id number] 00 Medication knowledge/s Meds Resolve 2018-08-03 Angelica kill d 06-27 16:00:00 Noelle deficit: pt 15:00: [id number] 00 Musculoskel transfer Musculoske Unknown Angelica etal assistance letal 06-27 Noelle required 15:00: [id number] 00 Musculoskel requires Musculoske Unknown Angelica etal human letal 06-27 Noelle assist to 15:00: [id number] leave home 00 Elimination knowledge/s Eliminatio Resolve 2018-12-21 Angelica kill n d 07-04 15:15:00 Noelle deficit: pt 15:15: [id number] 00 Test/Treatm tests Test/Injec Resolve 2019-04-12 Angelica ent ordered t/Fabrice d 07-07 15:48:00 Noelle [id number] Musculoskel requires Musculoske Unknown Angelica etal special letal 07-18 Noelle transportat 15:45: [id number] ion 00 Medication knowledge/s Meds Resolve 2018-08-31 Angelica kill d 08-10 16:53:00 Marianela deficit: pt 15:30: [employer] 00 [id number] Integument skin Integument Resolve 2019-04-12 Angelica integrity d 6-13 15:48:00 Noelle risk 16:02: [id number] 00 Medication knowledge/s Meds Resolve 2018-09-22 Angelica kill d 6- 15:00:00 Marianela deficit: pt 15:30: [facility] 00 [id number] Respiratory dyspnea Respirator Resolve 2019-04-12 Angelica present y d 9- 15:48:00 Noelle 14:26: [id number] 00 Sensory impaired Sensory Active Zoila verbal 12-09 [place] communicati 10:20: [id number] on 00 Sensory impaired Sensory Resolve 2019-04-12 Zoila hearing d 12-09 15:48:00 [place] 10:20: [id number] 00 Activity self-care Activity Resolve 2018-032019-04-12 Angelica deficit d 0-10 15:48:00 Noelle 15:15: [id number] 00 Elimination urinary Eliminatio Resolve 2018-032019-04-12 Angelica incontinenc n d 0-17 15:48:00 Noelle e 15:33: [id number] 00 Allergies, Adverse Reactions, Alerts Allergy Name Allergy Status Severity Reaction(s) Onset Inactive Treating Comments Type Date Date Clinician Carbapenems Allergen Active Unknown Reaction Zeinab Group Unknown 2-22 Bella Cephalospori Allergen Active Unknown Reaction Zeinab ns Group Unknown 2-22 Bella latex Base Active Unknown Reaction Zeinab Ingredient Unknown 2-22 Bella Penicillins Allergen Active Unknown Reaction Zeinab Group Unknown 2-22 Bella Medications Ordered Filled Start Stop Current Ordering Indication Dosage Frequency Signature Comments Components Medication Medication Date Date Medication? Clinician (SIG) Name Name acetaminoph acetaminoph 2017- No [place] 2 tab Unknown en 325 mg en 325 mg 11-28 Bobo MORENO tablet tablet amLODIPine amLODIPine 2016- No [place] 1 tab Unknown 5 mg tablet 5 mg tablet 06-26- Bobo MORENO aspirin 81 aspirin 81 No [place] 1 tab Unknown mg mg 6-06 Bobo MORENO tablet,ivania tablet,ivania yed release yed release atorvastati atorvastati No [place] 1 tab Unknown n 80 mg n 80 mg 4-15 Britni MORENOew tablet tablet baclofen 10 baclofen 10 No [place] 1 tab Unknown mg tablet mg tablet 11-28 ,Bobo citalopram citalopram 2016- No [place] 1 tab Unknown 10 mg 10 mg 06-26- ,Bobo tablet tablet Colace 200 Colace 200 2016- No [place] 1 tab Unknown mg capsule mg capsule 09-21 ,Bobo docusate docusate 2015- No [place] 3 cap Unknown sodium 100 sodium 100 11-28 ,Bobo mg capsule mg capsule gabapentin gabapentin 2012-03 No [place] -2 Cap Unknown 300 mg 300 mg 04-19 ,Bobo capsule capsule guaiFENesin guaiFENesin 2016- No [place] 10 ML Unknown AC 10 AC 10 11-28 Bobo MORENO mg-100 mg/5 mg-100 mg/5 mL oral mL oral liquid liquid HYDROcodone HYDROcodone 2016- No [place] 1 tab Unknown 10 10 11-28 ,Bobo mg-acetamin mg-acetamin ophen 325 ophen 325 mg tablet mg tablet latanoprost latanoprost 2018- No [place] 1 drop Unknown 0.005 % eye 0.005 % eye 05-23 ,Bobo drops drops metoprolol metoprolol No [place] 1 tab Unknown tartrate 25 tartrate 25 -12 ,Bobo mg tablet mg tablet Milk of Milk of No [place] 30 ML Unknown Magnesia Magnesia 11-28 Bobo MORENO 400 mg/5 mL 400 mg/5 mL oral oral suspension suspension nortriptyli nortriptyli 2016- No [place] 1 Cap Unknown ne 10 mg ne 10 mg 06-26- ,Bobo capsule capsule omeprazole omeprazole No [place] 1 Cap Unknown 20 mg 20 mg 11-29 ,Bobo capsule,del capsule,del ayed ayed release release Topamax 100 Topamax 100 2018- No [place] 1 tab Unknown mg tablet mg tablet 11-25 Bobo MORENO Topamax 25 Topamax 25 2018- No [place] 2 tab Unknown mg tablet mg tablet 04-18 ,Bobo Tricor 145 Tricor 145 2016- No [place] 1 tab Unknown mg tablet mg tablet 11-28 Bobo MORENO sulfamethox sulfamethox 2015- No [place] one Unknown azole 400 azole 400 09-25 Bobo MORENO tablet mg-trimetho mg-trimetho prim 80 mg prim 80 mg tablet tablet tamsulosin tamsulosin No [place] one Unknown 0.4 mg 0.4 mg 09-25 ,Bobo capsule capsule capsule nitrofurant nitrofurant No [place] 1 Unknown oin oin 10-22 Bobo MORENO monohydrate monohydrate /macrocryst /macrocryst als 100 mg als 100 mg capsule capsule docusate docusate 2016- No [place] 3 cap Unknown sodium 100 sodium 100 11-04 Bobo MORENO mg capsule mg capsule gentamicin gentamicin 2015-03 No [place] 1 drop Unknown 0.3 % eye 0.3 % eye 03-30 Bobo MORENO drops drops nortriptyli nortriptyli 2018- No [place] 2 Cap Unknown ne 10 mg ne 10 mg 04-28 Bobo MORENO (20 mg) capsule capsule hydroCHLORO hydroCHLORO No [place] 1 Unknown thiazide 25 thiazide 25 4- Bobo MORENO tablet mg tablet mg tablet (25 mg) citalopram citalopram No [place] 1tab Unknown 20 mg 20 mg 4- Bobo MORENO tablet tablet fenofibrate fenofibrate 2016- No [place] 1 Unknown nanocrystal nanocrystal 07-08 Bobo MORENO tablet lized 145 lized 145 (145 mg tablet mg tablet mg) doxycycline doxycycline 2016- No [place] 1 Unknown hyclate 100 hyclate 100 07-09 Bobo MORENO tablet mg tablet mg tablet (100 mg) Colace 100 Colace 100 2016-03- No [place] 3 Unknown mg capsule mg capsule 09-29 Bobo MORENO capsule s fenofibrate fenofibrate 2016-03- No [place] 1 cap Unknown 150 mg 150 mg 03-15 Bobo MORENO capsule capsule acetaminoph acetaminoph 2018- No [place] 1-2 Unknown en 500 mg en 500 mg 03-15 Bobo MORENO Tablets tablet tablet clindamycin clindamycin 2017- No [place] 150 mg Unknown HCl 150 mg HCl 150 mg 04-04 ,Bobo capsule capsule doxycycline doxycycline 2017- No [place] 1 Unknown monohydrate monohydrate 05-17 Bobo MORENO 100 mg 100 mg capsule capsule senna 8.6 senna 8.6 No [place] 1 tab Unknown mg tablet mg tablet 06-03 Bobo MORENO hold for diarrhe a Colace 100 Colace 100 No [place] Unknown Unknown mg capsule mg capsule 09-29 Bobo MORENO tamsulosin tamsulosin No [place] Unknown Unknown 0.4 mg 0.4 mg 09-29 ,Bobo capsule capsule doxycycline doxycycline 2018- No [place] Unknown Unknown 100 mg 100 mg 04-07 Bobo MORENO tablet tablet mupirocin 2 mupirocin 2 2018- No [place] Unknown Unknown % topical % topical 04-07 Bobo MORENO ointment ointment mupirocin 2 mupirocin 2 No [place] Unknown Unknown % topical % topical 04-07 Bobo MORENO ointment ointment oxybutynin oxybutynin No [place] Unknown Unknown chloride 5 chloride 5 04-07 rthy mg tablet mg tablet Rocio MORENO benzonatate benzonatate 2018- No [place] Unknown Unknown 100 mg 100 mg 08-17 ,Bobo capsule capsule azithromyci azithromyci 2018- No [place] Unknown Unknown n 250 mg n 250 mg 09-01 ,Bobo tablet tablet benzonatate benzonatate 2018- No [place] Unknown Unknown 100 mg 100 mg 09-04 ,Bobo capsule capsule topiramate topiramate No [place] Unknown Unknown 25 mg 25 mg 09-22 Bobo MORENO tablet tablet Neosporin Neosporin No [place] Unknown Unknown (lenard-segun-po (lenard-segun-po 09-22 Bobo MORENO lym) 3.5 lym) 3.5 mg-400 mg-400 unit-5,000 unit-5,000 unit/gram unit/gram top top ointment ointment Tylenol 325 Tylenol 325 No [place] Unknown Unknown mg capsule mg capsule - Bobo MORENO Artificial Artificial No [place] Unknown Unknown Tears Tears 7- Bobo MORENO Xalatan Xalatan No [place] Unknown Unknown 0.005 % eye 0.005 % eye 7- Bobo MORENO drops drops Blue-emu Blue-emu No [place] Unknown Unknown super super 7- Bobo MORENO strenth strenth nortriptyli nortriptyli No [place] Unknown Unknown ne 10 mg ne 10 mg 9- Bobo MORENO capsule capsule Vital Signs Vital [...]
--- OUTSIDE RECORDS SUMMARY | 2019-05-09 15:43 | XMS REPORT | Summary of Care ---
:1965 Author Organization [facility] Address [address] [place] [id number] Care Team Providers Name Role Phone Fentress Bobo Monsalve Primary Care Provider Reason for Visit Reason Comments Transitional Care Management [place] [facility] [place] after being treted for back sores and constiption and vomitting. Letter Request Patient needs face to face for a new electric wheel chair. Encounter Details Date Type Department Care Team Description 05/09/2019 Office Visit [place] Peggy FentressBobo Wheelchair bound ( Primary Dx); Keny Monsalve MD Seizure disorder, secondary (HCC); [address] Depression, recurrent (HCC); [place] [address] Mixed hyperlipidemia; [phone] Essential hypertension, benign; [phone] History of CVA in adulthood; (Fax) Small bowel obstruction due to postoperative adhesions; S/P laparoscopic surgery; Polypharmacy Allergies Active Allergy Reactions Severity Noted Date Comments Carbapenems Other 02/05/2014 unsure Cephalosporins Other 02/05/2014 unknown Latex Rash 02/05/2014 Penicillin G 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 [id number] Apply to open 1 Tube 1 07/10/19 Active lymyxin wound on left 17 (NEOSPORIN,TRIPLE lower leg daily ANTIBIOTIC) 400-5-5000 . Apply externally OintmentIndications: Venous ulcer (HCC) ARTIFICIAL TEAR OP Place to the 0 Active external eye NEEDED. Gauze Pads & Dressings 1 Each by Does 14 Each 11 10/16/19 Active (QC NON-ADHERENT) not apply route 17 3"X4" Does not apply DAILY. Pads Gauze Pads & Dressings 1 Each by Does 14 Each 11 10/16/19 Active (BANDAGE ROLL 3"X75") not apply [...] Apply externally amount twice 19 Ointment daily Tamsulosin HCl TAKE ONE 30 Cap 5 10/17/19 Active (FLOMAX) 0.4 MG Oral CAPSULE BY 19 Cap MOUTH EVERY MORNING Control Gel Formula 1 Each by Apply [...] Oral Cap mouth THREE 19 TIMES DAILY. baclofen (LIORESAL) 10 Take 1 Tab by 60 Tab 5 03/26/19 Active MG Oral Tab mouth TWICE 20 DAILY. Aspirin 81 MG Oral Tab Take 1 Tab by 30 Tab 5 05/09/19 Active mouth DAILY. 20 topiramate (TOPAMAX) Take 1 Tab by 60 Tab 5 05/09/19 Active 100 MG Oral Tab mouth EVERY 20 BEDTIME. Topiramate 50 MG Oral Take 1 Tab by 60 Tab 4 05/09/19 Active Tab mouth EVERY 20 MORNING. Liniments (BLUE-EMU by Apply 0 Discontinued SUPER STRENGTH) Apply externally 020 (Provider externally Cream route TWICE Discontinued) DAILY. citalopram (CELEXA) 20 Take 1 Tab by 90 Tab 3 08/01/19 Discontinued MG Oral Tab mouth DAILY. 19 020 (Provider Discontinued) hydrochlorothiazide TAKE ONE TABLET 90 Tab 5 08/23/19 Discontinued (HCTZ, ORETIC) 25 MG BY MOUTH EVERY 19 020 (Provider Oral TabIndications: DAY Discontinued) Dependent edema nortriptyline Take 1 Cap by 120 Cap 0 09/23/19 Discontinued (PAMELOR) 10 MG Oral mouth EVERY 19 020 (Provider Cap BEDTIME. Discontinued) topiramate (TOPAMAX) Take 4 Tabs by 360 Tab 3 10/28/19 Discontinued 25 MG Oral Tab mouth EVERY 19 020 (Duplicate BEDTIME. Order) metoprolol (LOPRESSOR) Take 1 Tab by 180 Tab 4 11/15/19 Discontinued 25 MG Oral Tab mouth TWICE 19 020 (Provider DAILY. Discontinued) documented as of this encounter (statuses as of 05/09/2019) Active Problems Problem Noted Date Ulcer of left lower leg, limited to breakdown of skin 09/26/2017 Wheelchair bound 09/26/2017 Aphasia as late effect of cerebrovascular accident 07/15/2016 History of CVA in adulthood 02/05/2014 Overview: 2000 right hemiparesis and memory loss [address] [facility] TBI (traumatic brain injury) 02/05/2014 Overview: Cerebrovascular accident 1999 and 2008 [place]bi medicaid waiver program [facility] [employer] 6 days weeklu GERD (gastroesophageal reflux disease) 02/05/2014 Essential hypertension, benign 02/05/2014 Mixed hyperlipidemia 02/05/2014 Depression, recurrent 02/05/2014 Overview: Citalopram treatment Seizure disorder, secondary 02/05/2014 Overview: Due to cerebrovascular accident gabapentin and topiramate Neurology [facility] Muscle spasms of lower extremity 02/05/2014 Overview: Baclofen treatment Phantom limb syndrome 02/05/2014 Overview: S/p right AKA 2009 Nortryptiline and gabapentin History of tobacco use 02/05/2014 Overview: Quit 2009 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 S/p right AKA 2008 documented as of this encounter (statuses as of 05/09/2019) Resolved Problems Problem Noted Date Resolved Date Stasis ulcer, unspecified laterality 09/26/2017 09/26/2017 Peripheral vascular disease 07/15/2016 09/26/2017 Overview: History gangrene and R AKA 2008 Obesity 02/05/2014 09/26/2017 documented as of this encounter (statuses as of 05/09/2019) Immunizations Name Administration Dates Next Due Influenza (IM) Preservative Free 12/20/2018, 12/26/2017, 12/09/2016 Influenza (IM) W/Pres 12/25/2015 documented as of this encounter Social History Tobacco Use Types Packs/Day Years Used Date Former Smoker Smokeless Tobacco: Never Used Alcohol Use Drinks/Week oz/Week Comments No 0 Standard drinks or equivalent 0.0 Sex Assigned at Date Recorded Not on file documented as of this encounter Last Filed Vital Signs Vital Sign Reading Time Taken Comments Blood Pressure 120/70 05/09/2019 7:58 AM EST Pulse 101 05/09/2019 7:58 AM EST Temperature - - Respiratory Rate - - Oxygen Saturation 94% 05/09/2019 7:58 AM EST Inhaled Oxygen Concentration - - Weight - - Height - - Body Mass Index - - documented in this encounter Patient Instructions Patient InstructionsBobo Hathaway MD - 05/09/2019 7:40 AM ESTStop tricor Continue all other medications as per [facility] discharge instructions He needs surgical follow up FEI Meyers Follow up me or Mina BROUSSARD here 3 weeks documented in this encounter Progress Notes Bobo Hathaway MD - 05/09/2019 7:40 AM EST TCM Statement. Review of the hospitalization: I am seeing for transition of care following hospitalization. The date of discharge was: 05/08/19 from [facility] The discharge diagnosis was Ileus, partial SBO, s/p laparoscpy and lysis of adhesions by Dr Meyers STEWARD DISHWASHER general surgery, he had buttock pain and with prior history ischial osteomyelitis mri was done which revealed no bone infection He is here with geriatric care manager today who also states that the appointment is for motorized wheelchair justification on request from [employer] This is unusual as I have no paperwork or forms from [employer] for the motorized wheelchair He needs an electric wheelchair due to the fact that his current motorized wheelchair is broken and he cannot use it. He has disability due to prior cerebrovascular accident and cannot use manual wheelchair Multiple medications were change and aide states no nausea and vomitting and he had bowel movement yesterday Patient denies abdomen pain Patient Active Problem List Diagnosis ? History of CVA in adulthood ? TBI (traumatic brain injury) (HCC) ? GERD (gastroesophageal reflux disease) ? Essential hypertension, benign ? Mixed hyperlipidemia ? Depression, recurrent (HCC) ? Seizure disorder, secondary (HCC) ? Muscle spasms of lower extremity ? Phantom limb syndrome (HCC) ? History of tobacco use ? Buerger's disease (HCC) ? Aphasia as late effect of cerebrovascular accident ? Ulcer of left lower leg, limited to breakdown of skin (HCC) ? Wheelchair bound MEDICATIONS-reviewed I reviewed the discharge summary, discharge instructions, and pertinent additional documentation obtained during hospitalization. I reconciled the medications. I also reviewed the Transition of Care documentation done by staff. Exam BP 120/70 Pulse 101 SpO2 94% The abdomen is soft without tenderness, guarding, mass, rebound or organomegaly. Bowel sounds are normal. No CVA tenderness or inguinal adenopathy noted. ICD-9-CM ICD-10-CM 1. Wheelchair bound motorized wheelchair is medically necessary V46.3 Z99.3 2. Seizure disorder, secondary (HCC) continue current medications 345.90 G40.909 3. Depression, recurrent (HCC) off selective serotonin receptor inhibitor for now due to sbo 296.30F33.9 4. Mixed hyperlipidemia continue statin stop fibrate 272.2 E78.2 5. Essential hypertension, benign off hydrochlorothiazide and metoprolol due to sbo monitor blood pressure and follow up 401.1 I10 6. History of CVA in adulthood V12.54 Z86.73 7. Small bowel obstruction due to postoperative adhesions follow up general surgery Dr Meyers STEWARD DISHWASHER 560.81 K91.30 8. S/P laparoscopic surgery V45.89 Z98.890 9. Polypharmacy stop fibrate for now V58.69 Z79.899 The tests that were not available at the time of discharge were reviewed. Additional tests which are not yet available include: none Coordination of care. - I am satisfied that appropriate referrals are in place to deal with the problems identified during hospitalization, and that the patient has adequate community resources and support in place. I confirmed the patient's understanding of the diagnosis and plan of care. Specific education that was provided today: Patient Instructions Stop tricor Continue all other medications as per [facility] discharge instructions He needs surgical follow up [facility] Dr Meyers Follow up me or Mina BROUSSARD here 3 weeks The current and discharge medications were reconciled by me, today The source document was hospital discharge summary documented in this encounter Plan of Treatment Date Type Specialty Care Team Description 06/20/2019 Office Visit Internal Medicine Bobo Hathaway MD [address] [place] [address] [phone] 09/17/2019 Office Visit Internal Medicine Bobo Hathaway MD [address] [place] [address] [phone] Health Maintenance Due Date Last Done Comments DTaP/Tdap/Td Vaccines (1 - 07/31/1974 Tdap) ZOSTER IMMUNIZATION SERIES 07/31/2013 (1 of 2) DIABETES SCREENING 03/19/2020 03/19/2019, 02/06/2018, 09/26/2017, Additional history exists LIPID DISORDER SCREENING 03/19/2020 03/19/2019, 02/06/2018, 07/15/2016, Additional history exists DEPRESSION SCREENING 11/16/2021 Postponed from 1975 (Other) [...] Type Problems Progress Blood Pressure Blood Pressure 120/70 No Fentress, < 140/90 (05/09/2019 Bobo Monsalve, 7:58 AM EST) Note: Hypertension Care Plan Based [...] Educational Resources. record my blood pressure results. [facility] is safe and secure way for you [...] Educational Resources: National Heart, Lung, & Blood [place] http://nhlbi.nih.gov/hbp/index.html The DASH Diet Eating Plan http://www.nhlbi.nih.gov/health/health-topics/ topics/dash/ Academy of Nutrition & DIetetics http://eatright.org National Smoking Cessation Site http://smokefree.gov Blood Pressure < Blood Pressure 120/70 (05/09/2019 7:58 No Lisa Cisse FNP 140/90 AM EST) [...] filedocumented in this encounter Visit Diagnoses Diagnosis Wheelchair bound Wheelchair dependence Seizure disorder, secondary (HCC) Unspecified epilepsy without mention of intractable epilepsy Depression, recurrent (HCC) Major depressive disorder, recurrent episode, unspecified Mixed hyperlipidemia Essential hypertension, benign History of CVA in adulthood Small bowel obstruction due to postoperative adhesions Intestinal or peritoneal adhesions with obstruction (postoperative) ( postinfection) S/P laparoscopic surgery Other postprocedural status Polypharmacy Issue of repeat prescriptions documented in this encounter Insurance Payer Benefit Plan / Subscriber ID Effective Dates Phone Address Type Group [place] [id number] 2016-Present Medicaid [place] Guarantor Name Account Type Relation to Date of Phone Billing Patient Address [place] Personal/Family [id number] (Home) [place] [phone] [place], [place] (Work) [id number] documented as of this encounter
--- OUTSIDE RECORDS SUMMARY | 2019-05-09 15:43 | XMS REPORT ---
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 [id number] , , unspecified unspecified as to as to partial partial versus versus complete complete obstruction obstruction Cellulitis Cellulitis Diagnosis Active Karma of buttock of buttock 05-08 Ingrahm [id number] Allergies, Adverse Reactions, Alerts Allergy Name Allergy Status Severity Reaction(s) Onset Inactive Treating Comments Type Date Date Clinician Carbapenems Allergen Active Unknown Reaction Zeinab Group Unknown - Bella Cephalospori Allergen Active Unknown Reaction Zeinab ns Group Unknown - Bella latex Base Active Unknown Reaction Zeinab Ingredient Unknown - Bella Penicillins Allergen Active Unknown Reaction Zeinab Group Unknown 2-22 Bella Medications Ordered Filled Start Stop Current Ordering Indication Dosage Frequency Signature Comments Components Medication Medication Date Date Medication? Clinician (SIG) Name Name No Known No Known No None None None Medications Medications For This For This Patient Patient Vital Signs Vital Name Observation Time Observation Value Comments SYSTOLIC mm[Hg] 2019-05-08 18:10:34 120 mm[Hg] mm[Hg] Method: Sit DIASTOLIC mm[Hg] 2019-05-08 18:10:34 82 mm[Hg] mm[Hg] Method: Sit PULSE 2019-05-08 18:10:34 98 /min /min RESP RATE 2019-05-08 18:10:34 18 /min /min TEMP 2019-05-08 18:10:34 97.4 [degF] Procedures This patient has no known procedures. Results This patient has no known results.
--- OUTSIDE RECORDS SUMMARY | 2019-05-09 15:43 | XMS REPORT ---
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 Chronic Chronic Diagnosis Active Angelica venous venous 11-28 Noelle hypertensio hypertensio [id number] n w/o comp n w/o comp of l low of l low extrem extrem Essential Essential Diagnosis Active Angelica (primary) (primary) 11-28 Noelle hypertensio hypertensio [id number] n n 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-28 Noelle emo def emo def [id number] following following unsp unsp cerebvasc cerebvasc disease disease 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, disorder, 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 recurrent, recurrent, unspecified unspecified Unspecified Unspecified Diagnosis Active Angelica open-angle open-angle Noelle glaucoma, glaucoma, [id number] stage stage unspecified unspecified Mixed Mixed Diagnosis Active Angelica hyperlipide hyperlipide Noelle lilly lilly [id number] Acquired Acquired Diagnosis Active Angelica absence of absence of Noelle unspecified unspecified [id number] leg above leg above knee knee Thrombotic Thrombotic Diagnosis Active Angelica microangiop microangiop Noelle rehan rehan [id number] Medication knowledge/s Meds Resolve 2015-09-16 Jackie darnell d 2-11 18:04:00 Sinnigen deficit: pt 15:50: [id number] 00 Diagnoses knowledge/s Diagnoses Resolve 2016-03-17 Tammee kill d 2- 15:00:00 Cesar-Hor deficit: pt 15:50: an 00 Diagnoses knowledge/s Diagnoses Resolve 2016-03-17 Tammee kill d 2-11 15:00:00 Cesar-Hor deficit: cg 15:50: an 00 Pain knowledge/s Pain Mgmt Resolve 2015-09-16 Luz Maria kill d 3 18:04:00 Samuels deficit: pt 15:45: [id number] 00 Cardio hypertensio Cardiovasc Resolve 2016-09-08 Luz Maria n ular d 3 21:45:00 Samuels 15:45: [id number] 00 Integument skin Integument Resolve 2015-09-16 Luz Maria integrity d 05-14 18:04:00 Samuels risk 15:45: [id number] 00 Nutrition knowledge/s Nutrition Resolve 2015-12-10 Luz Maria kill d 3 15:20:00 Samuels deficit: pt 15:45: [id number] 00 Elimination constipatio Eliminatio Resolve 2015-09-16 Luz Maria n n d 05-14 18:04:00 Samuels 15:45: [id number] 00 Elimination urinary Eliminatio Resolve 2015-05-15 Luz Maria incontinenc n d 3 15:45:00 Arvind e 15:45: [id number] 00 Activity ADL Activity Resolve 2016-03-17 Luz Maria assistance d 3 15:00:00 Samuels required 15:45: [id number] 00 Safety fall risk Safety Resolve 2015-09-16 Luz Maria factor d 05-14 18:04:00 Samuels present 15:45: [id number] 00 Medication injectable Meds Resolve 2015-09-16 Luz Maria med d 05-14 18:04:00 Arvind assistance 15:45: [id number] required 00 Musculoskel transfer Musculoske Unknown Luz Maria etal assistance letal 05-14 Arvind required 15:45: [id number] 00 Safety knowledge/s Safety Resolve 2015-09-16 Jackie kill d 3-17 18:04:00 [place] deficit: pt 17:45: 00 Respiratory lung sounds Respirator Resolve 2015-07-16 Luz Maria deficit y d 07-15 18:27:00 Arvind 18:27: [id number] 00 Elimination urinary Eliminatio Resolve 2015-08-15 Luz Maria incontinenc n d 07-15 16:23:00 Samuels e 18:27: [id number] 00 Neuro depressive Neuro/Emot Resolve 2016-03-17 Luz Maria feelings ion d 07-15 15:00:00 Samuels present 18:27: [id number] 00 Elimination urinary Eliminatio Resolve 2015-09-16 Luz Maria incontinenc n d 09-15 18:04:00 Arvind e 18:04: [id number] 00 Elimination urinary Eliminatio Resolve 2015-11-12 Luz Maria incontinenc n d 10-02 16:30:00 Arvind e 15:29: [id number] 00 Cardio edema Cardiovasc Resolve 2016-09-08 Shoshana ular d 10-15 21:45:00 Jerram ADMISSION SPECIALIST 15:00: [id number] 00 Sensory impaired Sensory Resolve 2016-03-17 Shoshana verbal d 10-15 15:00:00 Jerram ADMISSION SPECIALIST communicati 15:00: [id number] on 00 Elimination recurring Eliminatio Resolve 2015-12-10 Shoshana UTI n d 10-15 15:20:00 Jerram ADMISSION SPECIALIST 15:00: [id number] 00 Pain knowledge/s Pain Mgmt Resolve 2015-12-10 Luz Maria kill gretta 11-11 15:20:00 Arvind deficit: pt 16:30: [id number] 00 Cardio hypertensio Cardiovasc Unknown Luz Maria n rory 11-11 Arvind 16:30: [id number] 00 Elimination diarrhea Eliminatio Resolve 2015-12-10 Luz Maria n d 11-11 15:20:00 Arvind 16:30: [id number] 00 Medication oral med Meds Resolve 2016-09-08 Luz Maria assistance d 11-11 21:45:00 Samuels required 16:30: [id number] 00 Medication knowledge/s Meds Resolve 2016-03-17 Luz Maria kill d 8-31 15:00:00 Samuels deficit: pt 16:30: [id number] 00 Elimination urinary Eliminatio Resolve 2015-12-10 Almaz frequency n d 11-12 15:20:00 [place] 15:00: [id number] 00 Elimination urinary Eliminatio Resolve 2015-12-10 Almaz incontinenc n d 11-19 15:20:00 [place] e 14:00: [id number] 00 Safety fall risk Safety Resolve 2016-03-17 Luz Maria factor d 9 15:00:00 Samuels present 15:20: [id number] 00 Nutrition knowledge/s Nutrition Resolve 2015-032016-03-17 Almaz kill d 0 15:00:00 [place] deficit: pt 13:15: [id number] 00 Elimination urinary Eliminatio Resolve 2015-032016-01-07 Luz Maria incontinenc n d 0-20 16:01:00 Arvind e 15:28: [id number] 00 Pain frequent Pain Mgmt Resolve 2015-032018-04-26 Luz Maria pain d 0-26 15:08:00 Samuels 16:01: [id number] 00 Respiratory lung sounds Respirator Resolve 2015-032016-03-17 Luz Maria deficit y d 0-26 15:00:00 Arvind 16:01: [id number] 00 Respiratory dyspnea Respirator Resolve 2016-09-08 Luz Maria present y d 03-17 21:45:00 Arvind 15:00: [id number] 00 Integument pressure Integument Resolve 2018-06-27 Luz Maria ulcer d 03-17 15:00:00 Samuels present 15:00: [id number] 00 Integument skin Integument Resolve 2016-03-17 Luz Maria integrity d 1 15:00:00 Samuels risk 15:00: [id number] 00 Nutrition changing Nutrition Resolve 2016-09-20 Luz Maria weight/appe d 03-17 15:30:00 Arvind tite 15:00: [id number] 00 Nutrition knowledge/s Nutrition Resolve 2016-08-16 Almaz kill d 1-12 15:30:00 [place] deficit: pt 16:10: [id number] 00 Medication knowledge/s Meds Resolve 2016-09-08 Almaz kill d 1-12 21:45:00 [place] deficit: pt 16:10: [id number] 00 Nutrition nutritional Nutrition Resolve 2016-08-16 Luz Maria restriction d 2- 15:30:00 Samuels s 15:30: [id number] 00 Musculoskel transfer Musculoske Unknown Luz Maria etal assistance letal 05-06 Samuels required 15:15: [id number] 00 Musculoskel requires Musculoske Unknown Luz Maria etal human letal 05-06 Samuels assist to 15:15: [id number] leave home 00 Sensory impaired Sensory Resolve 2016-10-06 Stephanie verbal d 3 15:00:00 Haile communicati 15:35: [id number] on 00 Safety fall risk Safety Resolve 2016-08-16 Stephanie factor d 3 15:30:00 Haile present 15:35: [id number] 00 Safety risk for Safety Resolve 2016-08-16 Stephanie hospitaliza d 3 15:30:00 Haile tion 15:35: [id number] 00 Integument stasis Integument Resolve 2016-09-08 Stephanie ulcer d 07-08 21:45:00 Haile present 15:30: [id number] 00 Integument skin Integument Resolve 2016-09-08 Stephanie integrity d 07-08 21:45:00 Haile risk 15:30: [id number] 00 Neuro impaired Neuro/Emot Resolve 2016-10-06 Stephanie decision-ma ion d 08-10 15:00:00 Haile jacinda 16:00: [id number] 00 Safety risk for Safety Resolve 2016-09-08 Stephanie hospitaliza d 6- 21:45:00 Haile tion 16:00: [id number] 00 Musculoskel requires Musculoske Unknown Stephanie etal human letal 08-23 Haile assist to 16:00: [id number] leave home 00 Nutrition nutritional Nutrition Resolve 2016-09-20 Stephanie restriction d 09-06 15:30:00 Haile s 15:20: [id number] 00 Neuro depressive Neuro/Emot Resolve 2018-06-20 Stephanie feelings ion d 09-06 16:00:00 Haile present 15:20: [id number] 00 Safety fall risk Safety Resolve 2016-09-08 Stephanie factor d 09-06 21:45:00 Haile present 15:20: [id number] 00 Musculoskel transfer Musculoske Unknown Stephanie etal assistance letal 09-06 Haile required 15:20: [id number] 00 Pain frequent Pain Mgmt Unknown Stephanie pain 10-01 Haile 15:20: [id number] 00 Cardio edema Cardiovasc Resolve 2017-03-03 Stephanie ular d 10-01 16:22:00 Haile 15:20: [id number] 00 Activity ADL Activity Resolve 2016-10-06 Stephanie assistance d 10-01 15:00:00 Haile required 15:20: [id number] 00 Safety risk for Safety Resolve 2016-10-06 Stephanie hospitaliza d 10-01 15:00:00 Haile tion 15:20: [id number] 00 Musculoskel requires Musculoske Unknown Stephanie etal human letal 10-01 Haile assist to 15:20: [id number] leave home 00 Medication knowledge/s Meds Resolve 2016-10-06 Almaz kill d 10-04 15:00:00 [place] deficit: pt 14:55: [id number] 00 Medication knowledge/s Meds Resolve 2017-03-03 Almaz kill d 10-14 16:22:00 [place] deficit: pt 15:30: [id number] 00 Safety can be left Safety Resolve 2017-03-03 Demetria alone for d 10-21 16:22:00 Lizett only short 15:00: [id number] periods 00 Sensory impaired Sensory Resolve 2017-03-03 Irene verbal d 10-28 16:22:00 Mara majano 16:00: [id number] on 00 Neuro impaired Neuro/Emot Resolve 2017-03-03 Irene decision-ma ion d 10-28 16:22:00 Mara monaco 16:00: [id number] 00 Musculoskel requires Musculoske Unknown Irene etal special letal 10-28 Mara noelat 16:00: [id number] ion 00 Nutrition nutritional Nutrition Resolve 2017-03-03 Bryan restriction d 11-05 16:22:00 Mason RN s 15:28: [id number] 00 Safety fall risk Safety Resolve 2017-03-03 Bryan factor d 11-05 16:22:00 Mason RN present 15:28: [id number] 00 Musculoskel transfer Musculoske Unknown Bryan etal assistance letal 11-05 Mason RN required 15:28: [id number] 00 Respiratory dyspnea Respirator Resolve 2017-03-03 Almaz present y d 11-11 16:22:00 [place] 15:30: [id number] 00 Respiratory lung sounds Respirator Resolve 2016-032017-03-03 Sindhu deficit y d 0-12 16:22:00 Uribe 16:22: [id number] 00 Safety risk for Safety Resolve 2016-032017-03-03 Sindhu hospitaliza d 0-12 16:22:00 Uribe tion 16:22: [id number] 00 Integument pressure Integument Unknown 2016-03 Angelica ulcer 0-23 Farhat present 16:00: [id number] 00 Integument stasis Integument Active 2016-03 Angelica ulcer 0-23 [place] present 16:00: [id number] 00 Integument skin Integument Resolve 2016-032017-03-03 Angelica integrity d 0-23 16:22:00 Frahat risk 16:00: [id number] 00 Elimination urinary Eliminatio Resolve 2016-032017-03-03 Angelica incontinenc n d 04-12 16:22:00 [place] e 17:25: [id number] 00 Elimination constipatio Eliminatio Resolve 2016-032017-03-03 Angelica n n d 04-12 16:22:00 Farhat 17:25: [id number] 00 Integument other wound Integument Resolve 2016-032017-03-03 Angelica present d 2- 16:22:00 [place] 16:22: [id number] 00 Elimination bowel Eliminatio Resolve 2016-032017-03-03 Angelica incontinenc n d 05-04 16:22:00 [place] e 16:22: [id number] 00 Endo/Enrique anti-coagul Endo/Enrique Resolve 2016-032018-06-20 Angelica ation d 05-09 16:00:00 Afrhat therapy 16:03: [id number] 00 Elimination urinary Eliminatio Resolve 2016-032017-11-24 Angelica incontinenc n d 05-09 16:55:00 [place] e 16:03: [id number] 00 Elimination bowel Eliminatio Resolve 2016-032017-11-24 Angelica incontinenc n d 05-09 16:55:00 [place] e 16:03: [id number] 00 Respiratory dyspnea Respirator Resolve 2016-032018-03-01 Almaz present y d 05-11 15:31:00 [place] 15:50: [id number] 00 Safety fall risk Safety Resolve 2017-11-24 Sindhu factor d 03-15 16:55:00 Uribe present 16:20: [id number] 00 Safety risk for Safety Resolve 2017-11-24 Sindhu hospitaliza d 03-15 16:55:00 Uribe tion 16:20: [id number] 00 Safety can be left Safety Active Sindhu alone for 03-15 Uribe only short 16:20: [id number] periods 00 24 Hr Diet knowledge/s NT: 24Hr Resolve 2017-04-13 Bia kill Diet d 04-13 17:00:00 [place] deficit - 17:00: [id number] pt 00 24 Hr Diet knowledge/s NT: 24Hr Resolve 2017-04-13 Bia kill Diet d 04-13 17:00:00 [place] deficit - 17:00: [id number] cg 00 Integument skin Integument Resolve 2017-11-24 Angelica integrity d 05-06 16:55:00 [place] risk 16:38: [id number] 00 Neuro impaired Neuro/Emot Active Angelica decision-ma ion 05-06 Farhat monaco 16:38: [id number] 00 Safety cannot be Safety Active Angelica left alone 05-06 [place] 16:38: [id number] 00 Musculoskel requires Musculoske Resolve 2018-06-20 Angelica etal human letal d 05-06 16:00:00 Farhat assist to 16:38: [id number] leave home 00 Musculoskel requires Musculoske Resolve 2018-06-20 Angelica etal special letal d 05-06 16:00:00 [place] transportat 16:38: [id number] ion 00 Musculoskel transfer Musculoske Resolve 2018-06-20 Angelica etal assistance letal d 05-06 16:00:00 [place]hat required 16:38: [id number] 00 Test/Treatm venipunctur Test/Injec Active Angelica ent e ordered t/Fabrice 06-03 Noelle [id number] Elimination constipatio Eliminatio Resolve 2017-11-24 Angelica n n d 06-03 16:55:00 Noelle 19:06: [id number] 00 Neuro confusion Neuro/Emot Active Angelica present ion 06-03 Noelle 19:06: [id number] 00 Medication potential Meds Resolve 2018-06-20 Angelica clinically d 06-03 16:00:00 Noelle significant 19:06: [id number] medication 00 issue Medication oral med Meds Resolve 2018-06-06 Angelica assistance d 06-03 15:00:00 Noelle required 19:06: [id number] 00 Medication knowledge/s Meds Resolve 2018-06-20 Angelica kill d 06-03 16:00:00 Noelle deficit: pt 19:06: [id number] 00 Elimination urinary Eliminatio Resolve 2017-11-24 Angelica urgency n d 09-29 16:55:00 Noelle 15:32: [id number] 00 Elimination urinary Eliminatio Resolve 2017-11-24 Angelica frequency n d 09-29 16:55:00 Noelle 15:32: [id number] 00 Safety risk for Safety Resolve 2018-04-20 Almaz hospitaliza d 9-20 14:59:00 [place] tion 16:31: [id number] 00 Integument skin Integument Resolve 2017-032018-04-20 Angelica integrity d 0-18 14:59:00 Noelle risk 14:11: [id number] 00 Elimination urinary Eliminatio Resolve 2017-032018-12-21 Angelica incontinenc n d 0-18 15:15:00 Noelle e 14:11: [id number] 00 Safety fall risk Safety Resolve 2017-032018-04-20 Angelica factor d 0-18 14:59:00 Noelle present 14:11: [id number] 00 Integument pressure Integument Unknown Angelica ulcer 04-06 Noelle present 14:59: [id number] 00 Integument skin Integument Resolve 2018-06-27 Angelica integrity d 2-13 15:00:00 Noelle risk 15:08: [id number] 00 Elimination recurring Eliminatio Resolve 2018-12-21 Angelica UTI n d 2-13 15:15:00 Noelle 15:08: [id number] 00 Activity ADL Activity Active Angelica assistance 04-26 Noelle required 15:08: [id number] 00 Activity self-care Activity Resolve 2018-11-30 Angelica deficit d 2-13 14:26:00 Noelle 15:08: [id number] 00 Safety risk for Safety Resolve 2018-06-20 Angelica hospitaliza d 2-13 16:00:00 Noelle tion 15:08: [id number] 00 Safety fall risk Safety Resolve 2018-06-20 Angelica factor d 2-13 16:00:00 Noelle present 15:08: [id number] 00 Nutrition knowledge/s Nutrition Active Angelica kill 06-20 Noelle deficit: pt 16:00: [id number] 00 Nutrition nutritional Nutrition Active Angelica restriction 06-20 Noelle s 16:00: [id number] 00 Endo/Enrique anti-coagul Endo/Enrique Active Angelica ation 4-16 Noelle therapy 15:00: [id number] 00 Safety fall risk Safety Active Angelica factor 4-16 Noelle present 15:00: [id number] 00 Safety risk for Safety Active Angelica hospitaliza 4-16 Noelle tion 15:00: [id number] 00 Medication knowledge/s Meds Resolve 2018-08-03 Angelica darnell d 4-16 16:00:00 Noelle deficit: pt 15:00: [id number] 00 Musculoskel transfer Musculoske Unknown Angelica etal assistance letal 06-27 Noelle required 15:00: [id number] 00 Musculoskel requires Musculoske Unknown Angelica etal human letal -16 Noelle assist to 15:00: [id number] leave home 00 Elimination knowledge/s Eliminatio Resolve 2018-12-21 Angelica darnell n d 07-04 15:15:00 Noelle deficit: pt 15:15: [id number] 00 Test/Treatm tests Test/Injec Active Angelica ent ordered t/Fabrice 07-07 Noelle [id number] Musculoskel requires Musculoske Unknown Angelica etal special letal 07-18 Noelle transportat 15:45: [id number] ion 00 Medication knowledge/s Meds Resolve 2018-2018-08-31 Angelica darnell d 08-10 16:53:00 Marianela deficit: pt 15:30: [employer] 00 [id number] Integument skin Integument Active Angelica integrity 08-24 Noelle risk 16:02: [id number] 00 Medication knowledge/s Meds Resolve 2018-09-22 Angelica darnell d 09-07 15:00:00 Marianela deficit: pt 15:30: [employer] 00 [id number] Respiratory dyspnea Respirator Active Angelica present y 11-30 Noelle 14:26: [id number] 00 Sensory impaired Sensory Active Zoila verbal 12-09 Proctor communicati 10:20: [id number] on 00 Sensory impaired Sensory Active Zoila hearing 12-09 [place] 10:20: [id number] 00 Activity self-care Activity Resolve 2018-032019-04-12 Angelica deficit d 0-10 15:48:00 Noelle 15:15: [id number] 00 Elimination urinary Eliminatio Active 2018-03 Angelica incontinenc n 0-17 Noelle e 15:33: [id number] 00 Allergies, Adverse Reactions, Alerts Allergy Name [...] (SIG) Name Name acetaminoph acetaminoph 2017- No [place] 2 tab Unknown en 325 mg en 325 mg 11-28 Bobo MORENO tablet tablet amLODIPine amLODIPine 2016- No [place] 1 tab Unknown 5 mg tablet 5 mg tablet 06-26 05- Bobo MORENO aspirin 81 aspirin 81 No [place] 1 tab Unknown mg mg 6 Bobo MORENO tablet,ivania tablet,ivania yed release yed release atorvastati atorvastati No [place] 1 tab Unknown n 80 mg n 80 mg 06-26 Bobo MORENO tablet tablet baclofen 10 baclofen 10 No [place] 1 tab Unknown mg tablet mg tablet 11-28 Bobo MORENO citalopram citalopram 2016- No [place] 1 tab Unknown 10 mg 10 mg 06-26 04- Bobo MORENO tablet tablet Colace 200 Colace 200 2016- No [place] 1 tab Unknown mg capsule mg capsule 09-21 Bobo MORENO docusate docusate 2015- No [place] 3 cap Unknown sodium 100 sodium 100 11-28 08-24 Bobo MORENO mg capsule mg capsule gabapentin gabapentin 2012-03 No [place] 1-2 Cap Unknown 300 mg 300 mg 2- Bobo MORENO capsule capsule guaiFENesin guaiFENesin 2016- No [place] 10 ML Unknown AC 10 AC 10 11-28 Bobo MORENO mg-100 mg/5 mg-100 mg/5 mL oral mL oral liquid liquid HYDROcodone HYDROcodone 2016- No [place] 1 tab Unknown 10 10 11-28 Bobo MORENO mg-acetamin mg-acetamin ophen 325 ophen 325 mg tablet mg tablet latanoprost latanoprost 2018- No [place] 1 drop Unknown 0.005 % eye 0.005 % eye 05-23- Bobo MORENO drops drops metoprolol metoprolol No [place] 1 tab Unknown tartrate 25 tartrate 25 03-25 Bobo MORENO mg tablet mg tablet Milk of Milk of No [place] 30 ML Unknown Magnesia Magnesia 11-28 Bobo MORENO 400 mg/5 mL 400 mg/5 mL oral oral suspension suspension nortriptyli nortriptyli 2016- No [place] 1 Cap Unknown ne 10 mg ne 10 mg 06-26 Bobo MORENO capsule capsule omeprazole omeprazole No [place] 1 Cap Unknown 20 mg 20 mg 11-29 ,Bobo capsule,del capsule,del ayed ayed release release Topamax 100 Topamax 100 2018- No [place] 1 tab Unknown mg tablet mg tablet 11-25 oBbo MORENO Topamax 25 Topamax 25 2018- No [place] 2 tab Unknown mg tablet mg tablet 04-18 Bobo MORENO Tricor 145 Tricor 145 2016- No [place] 1 tab Unknown mg tablet mg tablet 11-28 Bobo MORENO sulfamethox sulfamethox 2015- No [place] one Unknown azole 400 azole 400 09-25- Bobo MORENO tablet mg-trimetho mg-trimetho prim 80 mg prim 80 mg tablet tablet tamsulosin tamsulosin 2017- No [place] one Unknown 0.4 mg 0.4 mg 09-2530 Bobo MORENO capsule capsule capsule nitrofurant nitrofurant No [place] 1 Unknown oin oin 8-11 Bobo MORENO monohydrate monohydrate /macrocryst /macrocryst als 100 mg als 100 mg capsule capsule docusate docusate 2016- No [place] 3 cap Unknown sodium 100 sodium 100 11-04 ,Bobo mg capsule mg capsule gentamicin gentamicin 2015-03- No [place] 1 drop Unknown 0.3 % eye 0.3 % eye 03-30 ,Bobo drops drops nortriptyli nortriptyli 2018- No [place] 2 Cap Unknown ne 10 mg ne 10 mg 04-28 ,Bobo (20 mg) capsule capsule hydroCHLORO hydroCHLORO No [place] 1 Unknown thiazide 25 thiazide 25 06-24 ,Bobo tablet mg tablet mg tablet (25 mg) citalopram citalopram No [place] 1tab Unknown 20 mg 20 mg 07-01 ,Bobo tablet tablet fenofibrate fenofibrate 2016- No [place] 1 Unknown nanocrystal nanocrystal 07-08 ,Bobo tablet lized 145 lized 145 (145 mg tablet mg tablet mg) doxycycline doxycycline 2016- No [place] 1 Unknown hyclate 100 hyclate 100 07-09- ,Bobo tablet mg tablet mg tablet (100 mg) Colace 100 Colace 100 2016-03- No [place] 3 Unknown mg capsule mg capsule 09-29 ,Bobo capsule s fenofibrate fenofibrate 2016-03- No [place] 1 cap Unknown 150 mg 150 mg 03-15 ,Bobo capsule capsule acetaminoph acetaminoph 2018- No [place] 1-2 Unknown en 500 mg en 500 mg 03-15 Bobo MORENO Tablets tablet tablet clindamycin clindamycin 2017- No [place] 150 mg Unknown HCl 150 mg HCl 150 mg 04-04 ,Bobo capsule capsule doxycycline doxycycline 2017- No [place] 1 Unknown monohydrate monohydrate 05-17 ,Bobo 100 mg 100 mg capsule capsule senna 8.6 senna 8.6 No [place] 1 tab Unknown mg tablet mg tablet 06-03 ,Bobo hold for diarrhe a Colace 100 Colace 100 No [place] Unknown Unknown mg capsule mg capsule 09-29 ,Bobo tamsulosin tamsulosin No [place] Unknown Unknown 0.4 mg 0.4 mg 09-29 Bobo capsule capsule doxycycline doxycycline 2018- No [place] Unknown Unknown 100 mg 100 mg 04-07 Bobo tablet tablet mupirocin 2 mupirocin 2 2018- No [place] Unknown Unknown % topical % topical 04-07 Bobo ointment ointment mupirocin 2 mupirocin 2 No [place] Unknown Unknown % topical % topical 04-07 ,Bobo ointment ointment oxybutynin oxybutynin No [place] Unknown Unknown chloride 5 chloride 5 04-07 rthy mg tablet mg tablet Kevananurag benzonatate benzonatate 2018- No [place] Unknown Unknown 100 mg 100 mg 08-17 ,Bobo capsule capsule azithromyci azithromyci 2018- No [place] Unknown Unknown n 250 mg n 250 mg 09-01 ,Bobo tablet tablet benzonatate benzonatate 2018- No [place] Unknown Unknown 100 mg 100 mg 09-04 ,Bobo capsule capsule topiramate topiramate No [place] Unknown Unknown 25 mg 25 mg 09-22 ,Bobo tablet tablet Neosporin Neosporin No [place] Unknown Unknown (lenard-segun-po (lenard-segun-po - ,Bobo lym) 3.5 lym) 3.5 mg-400 mg-400 unit-5,000 unit-5,000 unit/gram unit/gram top top ointment ointment Tylenol 325 Tylenol 325 No [place] Unknown Unknown mg capsule mg capsule - ,Bobo Artificial Artificial No [place] Unknown Unknown Tears Tears 09-22 ,Bobo Xalatan Xalatan No [place] Unknown Unknown 0.005 % eye 0.005 % eye 09-22 ,Bobo drops drops Blue-emu Blue-emu No [place] Unknown Unknown super super 09-22 ,Bobo strevilma strenth nortriptyli nortriptyli 2019-0 No [place] Unknown Unknown ne 10 mg ne 10 [...]
--- OUTSIDE RECORDS SUMMARY | 2019-05-09 15:43 | XMS REPORT | Continuity of Care Document ---
:1965 External Reference #:[id number] Author Name Darwin Conteh M.D. (transmitted by agent of provider Kristin Villegas ) Address [address] [facility] [facility] [address] [place] [address] Problems Active Problems Provider Date H/O: cardiovascular [...] Constipation Power Mobility Device Dx: stroke, Right 1unkatherine Joseph 08/02/19 arm r Paralysis r Oumou Mojica 14 AKA height: Weight: Nortriptyline HCL 2 tab by mouth 180caps Pedro Luis 06/28/19 10mg every night Oumou Hazel 14 Capsules Medication Medication ready katherine Joseph 03/26/19 Container/Large dispenser Dx [place]umou Mojica 14 [facility] [place]12.59 History Personal Circulatory Disease Other Lift [...] Joseph 300mg Capsules By Mouth in the uOmou Mojica 00 morning 2 po in the [...] CPT Code Status Date Vaccine Lot # [id number] Given 12/20/2013 Flu Vaccine Split Virus Preservative Free For Indiv 3Yr Older [id number] Given 01/03/2013 Tdap - Tetanus/Diptheria/Acellular Pertussis [id number] Given 12/04/2012 Flu Vaccine Split Virus Preservative Free For [id number] Indiv 3Yr Older Vital Signs Date Vital Result Comment 03/21/2019 8:09am Heart Rate 59 /min BP Systolic 106 mmHg BP Diastolic 74 mmHg 08/30/2018 10:56am Heart Rate 70 /min BP Systolic 104 mmHg BP Diastolic 72 mmHg Results Description No Information Available Procedures Date Code Description Status 01/03/2014 98900579 Colonoscopy Completed Medical Devices Description No Information Available Encounters Type Date Location Provider Dx Diagnosis [facility] in right 2:31p Infectious Roxie, GIRLS SWIMMING COACH hip Diseases Z86.19 Personal history of other infectious and parasitic diseases Office [facility] Pain in Infectious Faustin, GIRLS [employer]MING COACH right hip Diseases R79.82 Elevated C-reactive protein (CRP) Z86.19 Personal history of other infectious and parasitic diseases Office Visit 03/21/2019 8:00a Elan/Kirby Hazel, R51 Headache [facility] Alec Coello G40.209 Local-rel symptc epi w cmplx prt seiz,not ntrct,w/o stat epi I69.398 Other sequelae of cerebral infarction I69.320 Aphasia following cerebral infarction Assessments Date Code Description Provider 04/17/2019 M25.551 Pain in right hip Allegra Faustin, GIRLS [employer]MING COACH 04/17/2019 Z86.19 Personal history of other infectious Allegra Sultana Faustin, KENTRELL and parasitic diseases 04/16/2019 M25.551 Pain in right hip Allegra Faustin, GIRLS SWIMMING COACH 04/16/2019 R79.82 Elevated C-reactive protein (CRP) Allegra Faustin , GIRLS SWIMMING COACH 04/16/2019 Z86.19 Personal history of other infectious Allegra Kayy Faustin NP and parasitic diseases 03/21/2019 R51 Headache Pedro Luis Hazel M.D. 03/21/2019 G40.209 Localization-related (focal) Pedro Luis Hazel M.D. (partial) symptomatic epilepsy 03/21/2019 I69.398 Other sequelae of cerebral infarction Pedro Luis Hazel M.D. 03/21/2019 I69.320 Aphasia following cerebral infarction Pedro Luis Hazel M.D. Plan of Treatment Future Appointment(s):09/19/2019 8:00 am - Pedro Luis Hazel M.D. at [facility]03/21/2019 - Pedro Luis Hazel M.D.R51 HeadacheFollow up:Follow up in 6 months [place] for recent labsG40.209 Localization -related (focal) (partial) symptomatic wplxffpuI89.398 Other sequelae of cerebral mqedfuilhlU37.320 Aphasia following cerebral infarction Functional Status Description No Information Available Mental Status Description No Information Available Referrals Description No Information Available
[2019-05-09] MEDS ORDERED: Magnesium Hydroxide LIQ* 30 ML UDC PO PRN (16:30)
[2019-05-09] MEDS ORDERED: Latanoprost 0.005%* 2.5 ml BTL BOTH EYES SCH (18:00)
[2019-05-09] MEDS: Gabapentin CAP(*) 300 MG PO SCH (19:20)
[2019-05-09] MEDS: Baclofen TAB* 10 MG PO SCH (19:22)
[2019-05-09] MEDS: Oxybutynin TAB* 5 MG PO SCH (19:22)
[2019-05-09] MEDS: Docusate CAP* 100 MG PO SCH (19:25)
[2019-05-09] MEDS ORDERED: Topiramate TAB(*) 100 MG PO SCH (21:00)
--- NOTE | 2019-05-09 21:19 | HP ---
CC: Dr. Hathaway * ADMISSION HISTORY AND PHYSICAL: DATE OF ADMISSION: 05/09/19 PRIMARY CARE PROVIDER: Dr. Hathaway. SOURCE OF INFORMATION: History obtained from interview of patient, his mother, his son, discussion with multiple care managers as well as . RELIABILITY: Good. CHIEF COMPLAINT: He has difficulty transferring at home. HISTORY OF PRESENT ILLNESS: This is a 53-year-old man with past medical history of CVA in 2008 with aphasia as well as spastic right hemiparesis, right AKA, peripheral vascular disease, recent hospital stay from 04/15/19 to 05/08/19 , the day prior to presentation for prolonged course notable for seizures as well as prolonged ileus, status post ex-lap with lysis of adhesion, however, no identified small bowel obstruction, who is slated to go to [facility] for rehab, however, they have discharged the patient and mother preferred to return home instead of going to subacute rehab. The patient and mother were cautioned that we still did recommend subacute rehab, however, they felt comfortable returning home. The patient after returning home, the mother reports that he slept in a wheelchair the first night, which was the night prior to presentation , however, in the morning was able to transfer in his bathroom, take a shower, get dressed, was transported to his adult daycare where he did have bowel movement and difficulty transferring in order to get cleaned. The criminal justice social worker there, Vannesa was adamant that he needed additional care and should be admitted to [facility]. Multiple contacts made with the hospital including case management as well as payroll administrator auto air conditioning installer and the patient was admitted directly to the hospital overnight penitentiary care to be transferred to [facility] tomorrow. No additional changes to his medications should be made during the course of his hospital stay. Of note, since returning home, he was tolerating a regular diet. He has no abdominal pain, nausea, vomiting. No chest pain or shortness of breath. He had no difficulty in obtaining his home medications and taken them prior to returning. PAST MEDICAL HISTORY: 1. CVA 2008 with global aphasia, spastic right hemiparesis. 2. Right AKA. 3. Peripheral vascular disease. 4. History of pulmonary embolism. 5. Migraine. 6. Seizure disorder - with a recent increase in his antiepileptics during the course of last hospital stay. 7. Hypertension. 8. Dyslipidemia. 9. GERD. 10. Glaucoma. 11. Prolonged ileus without evidence of SBO and lysis of adhesions on ex-lap. PAST SURGICAL HISTORY: Right AKA. HOME MEDICATIONS: 1. Topamax 50 mg in the morning, 100 mg at bedtime. 2. Flomax 0.4 mg daily. 3. Senna daily. 4. Ditropan 2.5 mg twice daily. 5. Omeprazole 20 mg daily. 6. Magnesium hydroxide 30 mL daily as needed. 7. Xalatan 1 drop both eyes in the evening. 8. Gabapentin 300 mg 3 times day. 9. Tricor 160 mg daily. 10. Docusate 100 mg twice daily. 11. Baclofen 10 mg twice daily. 12. Lipitor 80 mg daily. 13. Aspirin 81 mg daily. 14. Acetaminophen 650 mg every 4 hours as needed for pain or fever. REVIEW OF SYSTEMS: As per HPI, otherwise all other systems negative. PHYSICAL EXAMINATION GENERAL: Lying 30 degrees in bed, interactive, no apparent distress, laughing. VITAL SIGNS: None to review currently. HEENT: Oropharynx is clear. He has moist mucous membranes. Sclerae anicteric. LUNGS: Clear to auscultation. HEART: Regular rate rhythm. ABDOMEN: Tympanic, but soft, nontender. EXTREMITIES: Warm and well perfused. He has a right AKA. He has swelling in his right hand, which he and his mother report is from sleeping in a wheelchair and consistent when he sleeps sitting up. NEUROLOGIC: He is aphasic, but interactive, follows 2-step commands. He has right facial droop at the lip. Spastic hemiparesis in the right arm. Right AKA. Other cranial nerves intact. LABORATORY DATA: Labs, none to review. Data, nothing to review. ASSESSMENT AND PLAN: This is a 53-year-old man with past medical history of cerebrovascular accident with global aphasia, right hemiparesis, history of right above-knee amputation, recent prolonged hospital stay notable for prolonged ileus, status post exploratory laparotomy as well as seizure with increase in his antiepileptic medication with planned discharge to [facility] , however, decided to return home on the day of discharge, now returning with difficulty transferring at his adult daycare with planned transfer to subacute rehab tomorrow. Bowel obstruction resolved. Continue full diet, which he was tolerating at home. Seizure disorder. Continue home medications. History of cerebrovascular accident. Continue aspirin. DVT prophylaxis with heparin. [id number]/[facility] #: [id number] LAITH
[2019-05-09] MEDS: Acetaminophen TAB* 325 MG PO PRN (22:42)
[2019-05-09] MEDS: Heparin VIAL(*) 5000 UNITS/ML VIAL (FIVE THOUSAND) SUBCUT SCH (22:43)
[2019-05-10] MEDS: Heparin VIAL(*) 5000 UNITS/ML VIAL (FIVE THOUSAND) SUBCUT SCH (05:29)
[2019-05-10] MEDS ORDERED: Aspirin EC TAB* 81 MG TAB.EC PO SCH (09:00)
[2019-05-10] MEDS ORDERED: Atorvastatin* 80 MG TAB PO SCH (09:00)
[2019-05-10] MEDS ORDERED: Topiramate TAB(*) 25 MG PO SCH (09:00)
[2019-05-10] MEDS ORDERED: Pantoprazole TAB * 40 MG TAB PO SCH (09:00)
[2019-05-10] MEDS ORDERED: Tamsulosin CAP* 0.4 MG PO SCH (09:00)
[2019-05-10] MEDS ORDERED: Senna TAB 8.6 mg* TAB PO SCH (09:00)
[2019-05-10] MEDS: Gabapentin CAP(*) 300 MG PO SCH (09:05)
[2019-05-10] MEDS: Acetaminophen TAB* 325 MG PO PRN (09:06)
[2019-05-10] MEDS: Docusate CAP* 100 MG PO SCH (09:07)
[2019-05-10] MEDS: Oxybutynin TAB* 5 MG PO SCH (09:07)
[2019-05-10] MEDS: Baclofen TAB* 10 MG PO SCH (09:07)
--- NOTE | 2019-05-10 12:20 | DS ---
CC: Dr. aHthaway * DISCHARGE SUMMARY: DATE OF ADMISSION: 05/09/19 DATE OF DISCHARGE: 05/10/19 PRIMARY CARE PROVIDER: Dr. Hathaway. DISPOSITION ON DISCHARGE: [facility]. CONDITION ON DISCHARGE: Good. PRIMARY DIAGNOSIS: Retirement care - need for prison facility. SECONDARY DIAGNOSES: Include: 1. History of cerebrovascular accident. 2. Right above-knee amputation. 3. Peripheral vascular disease. 4. History of pulmonary embolism. 5. Migraine. 6. Seizure disorder. 7. Hypertension. MEDICATIONS AT DISCHARGE: Unchanged from admission include: 1. Topamax 50 in the morning and 100 at bedtime. 2. Flomax 0.4 mg daily. 3. Senna daily. 4. Ditropan 2.5 mg twice daily. 5. Omeprazole 20 mg daily. 6. Magnesium hydroxide 30 mL daily as needed for constipation. 7. Xalatan 1 drop both eyes in the evening. 8. Gabapentin 300 mg 3 times a day. 9. TriCor 160 mg daily. 10. Docusate 100 mg twice daily. 11. Baclofen 10 mg twice daily. 12. Lipitor 80 mg daily. 13. Aspirin 81 mg daily. 14. Acetaminophen 650 mg every 4 hours as needed for pain or fever. PERTINENT LABS: No labs drawn during this hospital admission. PERTINENT DATA: No new imaging from this hospital stay. HISTORY OF PRESENT ILLNESS AND HOSPITAL COURSE: This is a very pleasant 53-year -old gentleman with past medical history as outlined in the history of present illness on the day of admission with prolonged hospital stay from 04/15/19 to 05/08/19 primarily with a prolonged ileus, underwent an ex-lap without identification of bowel obstruction, also stay complicated by seizures with his medications adjusted, also that stay with cellulitis treated with antibiotics, who was slated to be discharged to subacute rehab; however, he and his mother decided to return home. However, care was too difficult at home. After returning there, he went to adult daycare and had an episode of incontinence in his wheel-chair and had difficulty transferring. The rn social services, Vannesa, was adamant that he be placed in a subacute rehab, admitted to the hospital in the interim. The patient was admitted to the hospital directly from outpatient with plans to place him in [facility] today, which we will. During the hospital stay, he continued to tolerate a regular diet. He had no nausea, vomiting, lightheadedness, chest pain, shortness of breath. He is anxious to be discharged from the hospital at this time. Of note, the patient does have right AKA as well as spastic right hemiparesis in the setting of his previous CVA in 2008, also complicated by global aphasia; however, his receptive language is still intact. At followup, please: Ensure follow up with his primary care provider. No other specific labs or vitals that are pending at the time of discharge. Reasons to return to the hospital including, but not limited to recurrent or worsening symptoms including chest pain, shortness of breath, nausea, vomiting, lightheadedness, loss of consciousness, inability to tolerate food, seizures, fevers, bleeding from any source, inability to obtain or tolerate medications discussed with the patient. TIME SPENT: Greater than 45 minutes was spent on this discharge of this patient , greater than half was spent [id number] with the patient. [id number]/[facility] #: [id number] MTDD
[2019-05-10 12:57] VITALS: BP 120/74
== END 2019-05-10 13:45 ==
LOC: INTOOBSV 15:39 → MED 15:39 → UNDOADMIN 15:39
PROVIDERS: ADMIT Internal Medicine; ATTEND Internal Medicine
DX: I69.351 Hemiplegia and hemiparesis following cerebral infarction affecting right dominant side (principal); I69.320 Aphasia following cerebral infarction; Z89.611 Acquired absence of right leg above knee; I73.9 Peripheral vascular disease, unspecified; G40.909 Epilepsy, unspecified, not intractable, without status epilepticus; G43.909 Migraine, unspecified, not intractable, without status migrainosus; Z86.711 Personal history of pulmonary embolism; I10 Essential (primary) hypertension; Z79.899 Other long term (current) drug therapy; Z79.82 Long term (current) use of aspirin
CPT/HCPCS: 96372; A9270-GY; G0378; J1644

== ENCOUNTER 2020-02-20 16:00 | Inpatient (IN) ==
[2020-02-20 17:45] LABS: INR 1.18 (0.82-1.09)
[2020-02-20 17:46] LABS: ABS Eosinophils 0.1 10^3/ul (0-0.6); ABS Lymphocytes 1.6 10^3/ul (1.0-4.8); ABS Monocytes 0.6 10^3/ul (0-0.8); ABS Neutrophils 6.3 10^3/ul (1.5-7.7); Eosinophil % 1.4 %; Hematocrit 42 % (42-52); Hemoglobin 13.7 g/dL (14.0-18.0); Mean Corpuscular HGB Conc 33 g/dL (31-36); Mean Corpuscular Hemoglobin 27 pg (27-31); Mean Corpuscular Volume 83 fL (80-94); Mean Platelet Volume 8.5 fL (7.4-10.4); Nucleated Red Blood Cells % 0.1; Platelet Count 293 10^3/uL (150-450); Red Blood Count 5.04 10^6 /uL (4.18-5.48); Red Cell Distribution Width 16 % (10-15); White Blood Count 8.7 10^3/uL (3.5-10.8)
[2020-02-20 17:50] LABS: ALT 17 U/L (7-52); AST 13 U/L (13-39); Albumin 4.4 g/dL (3.2-5.2); Albumin/Globulin Ratio 1.1 (1-3); Alkaline Phosphatase 105 U/L (34-104); Anion Gap 6 mmol/L (2-11); BUN/Creatinine Ratio 14.1 (8-20); Blood Urea Nitrogen 14 mg/dL (6-24); CO2 Carbon Dioxide 24 mmol/L (22-32); Calcium 9.5 mg/dL (8.6-10.3); Chloride 107 mmol/L (101-111); Creatine Kinase 338 U/L (10-223); EGFR African American 94.6 (>60); EGFR Non-African American 78.2 (>60); Globulin 4.1 g/dL (2-4); Glucose 119 mg/dL (70-100); Magnesium 1.8 mg/dL (1.9-2.7); Potassium 3.5 mmol/L (3.5-5.0); Sodium 137 mmol/L (135-145); Total Protein 8.5 g/dL (6.4-8.9); Troponin I 0.01 ng/mL (<0.03)
[2020-02-20 17:51] LABS: Acetaminophen < 15 mcg/mL; Alcohol, S < 10 mg/dL (<10); Salicylate < 2.50 mg/dL (<30)
[2020-02-20] MEDS ORDERED: Magnesium Sulfate IV 1GM/100ML 1 GM/100 ML BAG IV ONE (18:00)
[2020-02-20 18:02] LABS: TSH Ultra Thyroid Stim Horm 1.39 mcIU/mL (0.34-5.60)
[2020-02-20] MEDS ORDERED: Tetan/Diph/Pertus SYR(Tdap) 0.5 ML SYR(BOOSTRIX) use SYR contains LATEX IM ONE (18:02)
[2020-02-20] MEDS ORDERED: Labetalol IV 5 MG/ML 20 ml VIAL IV PUSH PRN (19:10)
[2020-02-20] MEDS ORDERED: Morphine 4 MG/ML VIAL (1 ml) IV ONE (19:57)
[2020-02-20] MEDS ORDERED: niCARdipine 0.1MG/ML IVPREMIX 20 MG/200 ML BAG IV SCH (20:00)
[2020-02-20] MEDS ORDERED: Dextran 70/Hypromellose Tears Eye Drops 15 ml BTL (for Artificials Tears) BOTH EYES PRN (20:33)
[2020-02-20] MEDS ORDERED: Morphine 2 MG/ML SYRINGE IV ONE (21:32)
[2020-02-20] MEDS: Lactated Ringers 1000 ml BAG 1,000 ML IV SCH (21:59)
[2020-02-21] MEDS: niCARdipine 0.1MG/ML IVPREMIX 20 MG/200 ML BAG IV SCH ×5 (01:56→22:23)
[2020-02-21] MEDS ORDERED: Morphine 2 MG/ML SYRINGE IV ONE (02:28)
[2020-02-21 02:35] LABS: Urine Appearance Turbid; Urine Bilirubin Negative (Negative); Urine Blood Negative (Negative); Urine Color Yellow; Urine Glucose Negative (Negative); Urine Ketones Negative (Negative); Urine Nitrite Negative (Negative); Urine Protein 2+(100 mg/dL) (Negative); Urine Specific Gravity 1.013 (1.010-1.030); Urine Urobilinogen Negative (Negative)
[2020-02-21] MEDS ORDERED: Ondansetron 4 mg VIAL 2 MG/ML 2 ml VIAL ONE (02:54)
[2020-02-21] MEDS: Ondansetron 4 mg VIAL 2 MG/ML 2 ml VIAL IV PRN (02:55)
[2020-02-21 02:57] LABS: Urine Bacteria 1+ (Absent); Urine Red Blood Cell 2+(6-10/hpf) (Absent); Urine White Blood Cell 3+(>20/hpf) (Absent)
[2020-02-21 03:04] LABS: Urine Benzodiazepine Screen None Detected (None Detect); Urine Cannabinoids Screen None Detected (None Detect); Urine Opiates Screen Presumptive Positive (None Detect)
[2020-02-21 04:51] LABS: ABS Basophils 0.1 10^3/ul (0-0.2); ABS Lymphocytes 1.3 10^3/ul (1.0-4.8); ABS Monocytes 0.6 10^3/ul (0-0.8); ABS Neutrophils 8.8 10^3/ul (1.5-7.7); Eosinophil % 0.3 %; Hematocrit 41 % (42-52); Hemoglobin 13.4 g/dL (14.0-18.0); Lymphocyte % 11.9 %; Mean Corpuscular HGB Conc 33 g/dL (31-36); Mean Corpuscular Hemoglobin 27 pg (27-31); Mean Corpuscular Volume 83 fL (80-94); Mean Platelet Volume 8.1 fL (7.4-10.4); Platelet Count 283 10^3/uL (150-450); Red Blood Count 4.99 10^6 /uL (4.18-5.48); Red Cell Distribution Width 16 % (10-15); White Blood Count 10.7 10^3/uL (3.5-10.8)
[2020-02-21 05:08] LABS: BUN/Creatinine Ratio 13.3 (8-20); Calcium 8.7 mg/dL (8.6-10.3); EGFR Non-African American 95.8 (>60); Potassium 3.5 mmol/L (3.5-5.0)
[2020-02-21] MEDS ORDERED: Perflutren Lipid Microsphere 3 ML VIAL ONE (08:14)
[2020-02-21] MEDS ORDERED: Potassium Chloride LIQUID 20 MEQ/15 ML LIQUID PO ONE (08:46)
[2020-02-21] MEDS ORDERED: Acetaminophen IV 1 GM/100ML 1,000 MG/100 ML VIAL IVPB ONE (09:16)
[2020-02-21] MEDS: levETIRAcetam 500 MG IVPREMIX 500 MG/100 ML BAG IVPB SCH ×2 (10:49→21:02)
[2020-02-21] MEDS ORDERED: KCL 20 MEQ/100 ML IVPREMIX 20 MEQ/100 ML BAG IV ONE (16:58)
[2020-02-21] MEDS: Latanoprost 0.005% 2.5 ml BTL BOTH EYES SCH (18:17)
[2020-02-21] MEDS: Lactated Ringers 1000 ml BAG 1,000 ML IV SCH (22:25)
[2020-02-21] MEDS: Magnesium Hydroxide LIQ 30 ML UDC PO PRN (23:42)
[2020-02-22] MEDS: niCARdipine 0.1MG/ML IVPREMIX 20 MG/200 ML BAG IV SCH ×6 (02:03→21:18)
[2020-02-22] MEDS: levETIRAcetam 500 MG IVPREMIX 500 MG/100 ML BAG IVPB SCH ×2 (08:18→19:21)
[2020-02-22] MEDS: Acetaminophen IV 1 GM/100ML 100 ML IVPB SCH ×2 (08:21→16:27)
[2020-02-22 08:39] LABS: ABS Basophils 0.1 10^3/ul (0-0.2); ABS Eosinophils 0.2 10^3/ul (0-0.6); ABS Lymphocytes 1.7 10^3/ul (1.0-4.8); ABS Monocytes 0.7 10^3/ul (0-0.8); ABS Neutrophils 6.1 10^3/ul (1.5-7.7); Eosinophil % 1.9 %; Hematocrit 39 % (42-52); Hemoglobin 12.8 g/dL (14.0-18.0); Lymphocyte % 19.3 %; Mean Corpuscular HGB Conc 33 g/dL (31-36); Mean Corpuscular Hemoglobin 27 pg (27-31); Mean Corpuscular Volume 82 fL (80-94); Mean Platelet Volume 8.2 fL (7.4-10.4); Platelet Count 254 10^3/uL (150-450); Red Blood Count 4.71 10^6 /uL (4.18-5.48); Red Cell Distribution Width 16 % (10-15); White Blood Count 8.7 10^3/uL (3.5-10.8)
[2020-02-22 08:49] LABS: BUN/Creatinine Ratio 14.8 (8-20); Calcium 8.2 mg/dL (8.6-10.3); EGFR African American 108.4 (>60); EGFR Non-African American 89.6 (>60); Magnesium 1.8 mg/dL (1.9-2.7); Potassium 3.5 mmol/L (3.5-5.0)
[2020-02-22 12:41] LABS: Activated Partial Thrombo Time 24.4 seconds (26.0-38.0); INR 1.21 (0.82-1.09)
[2020-02-22] MEDS ORDERED: Gadoteridol (CONTRAST) 279.3 MG/ML 10 ML IV ONE (14:17)
[2020-02-22 14:38] LABS: Activated Partial Thrombo Time 21.4 seconds (26.0-38.0); INR 1.17 (0.82-1.09)
[2020-02-22] MEDS ORDERED: Magnesium Sulfate 2 gm BAG 2 GM/50 ML BAG IVPB ONE (14:57)
[2020-02-22] MEDS: Aztreonam 1 GM in NS 0.9% 50 ML 50 ML IV SCH ×2 (16:26→22:47)
[2020-02-22 16:46] LABS: PT/After 1 Hour Incubation 12.1 seconds (9.4-12.5)
[2020-02-22] MEDS: Latanoprost 0.005% 2.5 ml BTL BOTH EYES SCH (17:31)
[2020-02-22] MEDS: Lactated Ringers 1000 ml BAG 1,000 ML IV SCH (21:21)
[2020-02-23] MEDS: Acetaminophen IV 1 GM/100ML 100 ML IVPB SCH (00:03)
[2020-02-23] MEDS: niCARdipine 0.1MG/ML IVPREMIX 20 MG/200 ML BAG IV SCH ×3 (01:17→09:24)
[2020-02-23] MEDS: Aztreonam 1 GM in NS 0.9% 50 ML 50 ML IV SCH ×3 (06:12→22:48)
[2020-02-23] MEDS: levETIRAcetam 500 MG IVPREMIX 500 MG/100 ML BAG IVPB SCH ×2 (09:33→19:35)
[2020-02-23] MEDS: Ondansetron 4 mg VIAL 2 MG/ML 2 ml VIAL IV PRN (12:06)
[2020-02-23] MEDS: Magnesium Hydroxide LIQ 30 ML UDC PO PRN (12:06)
[2020-02-23] MEDS: oxyCODONE/Acetamin 5/325 mg TAB PO PRN ×2 (15:43→22:04)
[2020-02-23] MEDS: Lactated Ringers 1000 ml BAG 1,000 ML IV SCH (16:39)
[2020-02-23 17:30] LABS: Coagulation F VIII Activity 256 % (55 - 200)
[2020-02-23] MEDS: Latanoprost 0.005% 2.5 ml BTL BOTH EYES SCH (18:18)
[2020-02-24] MEDS: niCARdipine 0.1MG/ML IVPREMIX 20 MG/200 ML BAG IV SCH (00:18)
[2020-02-24] MEDS ORDERED: Acetaminophen IV 1 GM/100ML 100 ML ONE (00:22)
[2020-02-24] MEDS ORDERED: Acetaminophen IV 1 GM/100ML 100 ML IVPB ONE (01:00)
[2020-02-24] MEDS: oxyCODONE/Acetamin 5/325 mg TAB PO PRN ×4 (05:41→20:16)
[2020-02-24] MEDS ORDERED: Bupivacaine 0.5% 50 ML MDV VIAL INJ ONE (07:00)
[2020-02-24] MEDS: Aztreonam 1 GM in NS 0.9% 50 ML 50 ML IV SCH ×3 (07:44→23:05)
[2020-02-24] MEDS: levETIRAcetam 500 MG IVPREMIX 500 MG/100 ML BAG IVPB SCH (08:47)
[2020-02-24] MEDS ORDERED: Bupivacaine 0.25% SDV 30 ML INJ ONE (09:43)
[2020-02-24 11:12] LABS: ABS Basophils 0.1 10^3/ul (0-0.2); ABS Eosinophils 0.3 10^3/ul (0-0.6); ABS Lymphocytes 1.4 10^3/ul (1.0-4.8); ABS Monocytes 0.4 10^3/ul (0-0.8); ABS Neutrophils 5.9 10^3/ul (1.5-7.7); Eosinophil % 4.1 %; Hematocrit 37 % (42-52); Hemoglobin 12.6 g/dL (14.0-18.0); Lymphocyte % 16.9 %; Mean Corpuscular HGB Conc 34 g/dL (31-36); Mean Corpuscular Hemoglobin 28 pg (27-31); Mean Corpuscular Volume 82 fL (80-94); Platelet Count 235 10^3/uL (150-450); Red Blood Count 4.53 10^6 /uL (4.18-5.48); Red Cell Distribution Width 16 % (10-15); White Blood Count 8.1 10^3/uL (3.5-10.8)
[2020-02-24 11:34] LABS: BUN/Creatinine Ratio 15.6 (8-20); Calcium 8.1 mg/dL (8.6-10.3); EGFR African American 126.5 (>60); EGFR Non-African American 104.5 (>60); Magnesium 1.9 mg/dL (1.9-2.7)
[2020-02-24] MEDS: Polyethylene Glycol 3350 17 GM PACKET PO SCH ×2 (12:08→14:20)
[2020-02-24] MEDS: Senna TAB 8.6 mg TAB PO SCH ×2 (12:08→20:15)
[2020-02-24] MEDS ORDERED: Magnesium Sulfate IV 1GM/100ML 1 GM/100 ML BAG IV ONE (12:36)
[2020-02-24] MEDS ORDERED: fentaNYL PATCH 25 MCG/HR 1 PATCH TRANSDERM SCH ×2 (18:00)
[2020-02-24] MEDS: Latanoprost 0.005% 2.5 ml BTL BOTH EYES SCH (18:11)
[2020-02-24] MEDS: fentaNYL Patch Check Q Shift NOTE FOLLOW UP SCH (19:04)
[2020-02-24] MEDS ORDERED: hydrALAZINE 20 mg/ml 1 ML Vial IV IV SLOW PU ONE (19:55)
[2020-02-25] MEDS: oxyCODONE/Acetamin 5/325 mg TAB PO PRN ×4 (03:40→16:50)
[2020-02-25] MEDS: Aztreonam 1 GM in NS 0.9% 50 ML 50 ML IV SCH ×3 (06:15→23:33)
[2020-02-25] MEDS: fentaNYL Patch Check Q Shift NOTE FOLLOW UP SCH (06:49)
[2020-02-25] MEDS: Senna TAB 8.6 mg TAB PO SCH ×2 (08:33→22:06)
[2020-02-25] MEDS: Polyethylene Glycol 3350 17 GM PACKET PO SCH (08:33)
[2020-02-25] MEDS: Latanoprost 0.005% 2.5 ml BTL BOTH EYES SCH (18:34)
[2020-02-26] MEDS: oxyCODONE/Acetamin 5/325 mg TAB PO PRN ×5 (01:00→23:40)
[2020-02-26] MEDS ORDERED: hydrALAZINE 20 mg/ml 1 ML Vial IV IV SLOW PU ONE (01:54)
[2020-02-26] MEDS: Aztreonam 1 GM in NS 0.9% 50 ML 50 ML IV SCH ×3 (06:36→23:52)
[2020-02-26] MEDS: Polyethylene Glycol 3350 17 GM PACKET PO SCH (09:26)
[2020-02-26] MEDS: Senna TAB 8.6 mg TAB PO SCH ×2 (09:27→23:42)
[2020-02-26] MEDS: Latanoprost 0.005% 2.5 ml BTL BOTH EYES SCH (17:15)
[2020-02-27] MEDS ORDERED: Aztreonam 1 GM in NS 0.9% 50 ML 50 ML IV ONE (07:30)
[2020-02-27] MEDS: oxyCODONE/Acetamin 5/325 mg TAB PO PRN ×2 (07:38→21:27)
[2020-02-27] MEDS: Magnesium Hydroxide LIQ 30 ML UDC PO PRN (07:39)
[2020-02-27] MEDS: Polyethylene Glycol 3350 17 GM PACKET PO SCH (08:55)
[2020-02-27] MEDS: Senna TAB 8.6 mg TAB PO SCH ×2 (08:57→21:04)
[2020-02-27] MEDS ORDERED: Magnesium Hydroxide LIQ 30 ML UDC PO PRN (16:42)
[2020-02-27] MEDS ORDERED: Polyethylene Glycol 3350 17 GM PACKET PO PRN (16:42)
[2020-02-27] MEDS ORDERED: Senna TAB 8.6 mg TAB PO PRN (16:42)
[2020-02-27] MEDS: Latanoprost 0.005% 2.5 ml BTL BOTH EYES SCH (17:53)
[2020-02-27] MEDS: Magnesium Hydroxide LIQ 30 ML UDC PO SCH (21:05)
[2020-02-27] MEDS: Chlorhexidine MOUTHWASH 0.12% 15 ML UDC TOPICAL SCH (21:48)
[2020-02-28] MEDS: oxyCODONE/Acetamin 5/325 mg TAB PO PRN ×2 (05:53→13:50)
[2020-02-28 06:33] LABS: ABS Basophils 0.1 10^3/ul (0-0.2); ABS Eosinophils 0.1 10^3/ul (0-0.6); ABS Lymphocytes 2.1 10^3/ul (1.0-4.8); ABS Monocytes 0.8 10^3/ul (0-0.8); ABS Neutrophils 6.3 10^3/ul (1.5-7.7); Eosinophil % 1.3 %; Hematocrit 43 % (42-52); Hemoglobin 14.3 g/dL (14.0-18.0); Lymphocyte % 22.4 %; Mean Corpuscular HGB Conc 33 g/dL (31-36); Mean Corpuscular Hemoglobin 27 pg (27-31); Mean Corpuscular Volume 81 fL (80-94); Mean Platelet Volume 7.9 fL (7.4-10.4); Platelet Count 366 10^3/uL (150-450); Red Blood Count 5.26 10^6 /uL (4.18-5.48); Red Cell Distribution Width 16 % (10-15); White Blood Count 9.4 10^3/uL (3.5-10.8)
[2020-02-28 06:59] LABS: BUN/Creatinine Ratio 20.8 (8-20); Calcium 9.1 mg/dL (8.6-10.3); EGFR African American 136.6 (>60); EGFR Non-African American 112.9 (>60)
[2020-02-28] MEDS: Magnesium Hydroxide LIQ 30 ML UDC PO SCH ×2 (09:30→21:39)
[2020-02-28] MEDS: Chlorhexidine MOUTHWASH 0.12% 15 ML UDC TOPICAL SCH ×3 (09:43→22:01)
[2020-02-28] MEDS: Senna TAB 8.6 mg TAB PO SCH ×2 (09:46→21:40)
[2020-02-28] MEDS: Polyethylene Glycol 3350 17 GM PACKET PO SCH (09:46)
[2020-02-28] MEDS: Latanoprost 0.005% 2.5 ml BTL BOTH EYES SCH (17:27)
[2020-02-29] MEDS: oxyCODONE/Acetamin 5/325 mg TAB PO PRN ×2 (02:27→13:17)
[2020-02-29] MEDS: Chlorhexidine MOUTHWASH 0.12% 15 ML UDC TOPICAL SCH ×3 (09:53→20:58)
[2020-02-29] MEDS: Magnesium Hydroxide LIQ 30 ML UDC PO SCH ×2 (10:02→20:58)
[2020-02-29] MEDS: Polyethylene Glycol 3350 17 GM PACKET PO SCH (10:03)
[2020-02-29] MEDS: Senna TAB 8.6 mg TAB PO SCH ×2 (10:03→20:58)
[2020-02-29] MEDS: Latanoprost 0.005% 2.5 ml BTL BOTH EYES SCH (17:27)
[2020-03-01] MEDS: oxyCODONE/Acetamin 5/325 mg TAB PO PRN ×4 (03:38→21:57)
[2020-03-01] MEDS: Magnesium Hydroxide LIQ 30 ML UDC PO SCH ×2 (08:17→22:04)
[2020-03-01] MEDS: Polyethylene Glycol 3350 17 GM PACKET PO SCH (08:17)
[2020-03-01] MEDS: Senna TAB 8.6 mg TAB PO SCH ×2 (08:18→22:04)
[2020-03-01] MEDS: Chlorhexidine MOUTHWASH 0.12% 15 ML UDC TOPICAL SCH ×3 (09:40→21:57)
[2020-03-01] MEDS: Latanoprost 0.005% 2.5 ml BTL BOTH EYES SCH (17:23)
[2020-03-02] MEDS: oxyCODONE/Acetamin 5/325 mg TAB PO PRN ×3 (03:29→19:36)
[2020-03-02] MEDS: Magnesium Hydroxide LIQ 30 ML UDC PO SCH ×2 (09:09→20:28)
[2020-03-02] MEDS: Polyethylene Glycol 3350 17 GM PACKET PO SCH (09:09)
[2020-03-02] MEDS: Chlorhexidine MOUTHWASH 0.12% 15 ML UDC TOPICAL SCH ×3 (09:09→20:25)
[2020-03-02] MEDS: Senna TAB 8.6 mg TAB PO SCH ×2 (09:09→20:28)
[2020-03-02] MEDS: Latanoprost 0.005% 2.5 ml BTL BOTH EYES SCH (17:53)
[2020-03-03 08:35] LABS: ABS Basophils 0.1 10^3/ul (0-0.2); ABS Eosinophils 0.2 10^3/ul (0-0.6); ABS Lymphocytes 2.3 10^3/ul (1.0-4.8); ABS Monocytes 0.6 10^3/ul (0-0.8); ABS Neutrophils 4.7 10^3/ul (1.5-7.7); Eosinophil % 2.1 %; Hematocrit 41 % (42-52); Hemoglobin 13.6 g/dL (14.0-18.0); Lymphocyte % 29.4 %; Mean Corpuscular HGB Conc 33 g/dL (31-36); Mean Corpuscular Hemoglobin 27 pg (27-31); Mean Corpuscular Volume 83 fL (80-94); Mean Platelet Volume 7.8 fL (7.4-10.4); Nucleated Red Blood Cells % 0.1; Platelet Count 362 10^3/uL (150-450); Red Cell Distribution Width 16 % (10-15); White Blood Count 7.8 10^3/uL (3.5-10.8)
[2020-03-03 08:45] LABS: BUN/Creatinine Ratio 20.3 (8-20); Calcium 8.9 mg/dL (8.6-10.3); EGFR African American 122.8 (>60); EGFR Non-African American 101.5 (>60)
[2020-03-03] MEDS: Polyethylene Glycol 3350 17 GM PACKET PO SCH (10:05)
[2020-03-03] MEDS: Magnesium Hydroxide LIQ 30 ML UDC PO SCH ×3 (10:05→20:47)
[2020-03-03] MEDS: Senna TAB 8.6 mg TAB PO SCH ×2 (10:05→20:44)
[2020-03-03] MEDS: Chlorhexidine MOUTHWASH 0.12% 15 ML UDC TOPICAL SCH ×3 (10:53→20:47)
[2020-03-03] MEDS: Latanoprost 0.005% 2.5 ml BTL BOTH EYES SCH (17:57)
[2020-03-04 07:37] VITALS: BP 141/66
[2020-03-04] MEDS: Magnesium Hydroxide LIQ 30 ML UDC PO SCH (07:47)
[2020-03-04] MEDS: Senna TAB 8.6 mg TAB PO SCH (07:55)
[2020-03-04] MEDS: Polyethylene Glycol 3350 17 GM PACKET PO SCH (07:58)
== END 2020-03-04 10:55 | DRG 55 ==
LOC: ED 16:00 → ICU 18:50 → SSU 02-24 13:48
PROVIDERS: ADMIT Internal Medicine; ATTEND Hospitalist

== ENCOUNTER 2020-04-08 12:50 | Inpatient (IN) ==
[2020-04-08 13:58] LABS: ABS Basophils 0.1 10^3/ul (0-0.2); ABS Eosinophils 0.2 10^3/ul (0-0.6); ABS Lymphocytes 2.8 10^3/ul (1.0-4.8); ABS Monocytes 0.6 10^3/ul (0-0.8); ABS Neutrophils 5.4 10^3/ul (1.5-7.7); Eosinophil % 1.9 %; Hematocrit 42 % (42-52); Hemoglobin 14.2 g/dL (14.0-18.0); Lymphocyte % 30.5 %; Mean Corpuscular HGB Conc 34 g/dL (31-36); Mean Corpuscular Hemoglobin 28 pg (27-31); Mean Corpuscular Volume 83 fL (80-94); Mean Platelet Volume 7.7 fL (7.4-10.4); Platelet Count 323 10^3/uL (150-450); Red Blood Count 5.05 10^6 /uL (4.18-5.48); Red Cell Distribution Width 15 % (10-15); White Blood Count 9.1 10^3/uL (3.5-10.8)
[2020-04-08 14:09] LABS: Activated Partial Thrombo Time 30.1 seconds (26.0-38.0); INR 1.07 (0.82-1.09)
[2020-04-08 14:13] LABS: Troponin I 0.01 ng/mL (<0.03)
[2020-04-08] MEDS ORDERED: levETIRAcetam 1000MG IVPREMIX 1,000 MG/100 ML BAG IVPB ONE (15:18)
[2020-04-08 15:50] LABS: Albumin 4.3 g/dL (3.2-5.2); Potassium 4.2 mmol/L (3.5-5.0); Total Bilirubin 0.4 mg/dL (0.2-1.0)
[2020-04-08 15:56] LABS: BUN/Creatinine Ratio 14.3 (8-20); EGFR African American 126.5 (>60); EGFR Non-African American 104.5 (>60); Globulin 4.1 g/dL (2-4); Total Protein 8.4 g/dL (6.4-8.9)
[2020-04-08 16:37] LABS: Urine Appearance Clear; Urine Bilirubin Negative (Negative); Urine Blood Negative (Negative); Urine Color Yellow; Urine Glucose Negative (Negative); Urine Ketones Negative (Negative); Urine Nitrite Negative (Negative); Urine Protein 2+(100 mg/dL) (Negative); Urine Specific Gravity 1.013 (1.010-1.030); Urine Urobilinogen Negative (Negative)
[2020-04-08 16:58] LABS: Urine Bacteria Absent (Absent); Urine Red Blood Cell Absent (Absent); Urine Squamous Epithelial Cell Present (Absent); Urine White Blood Cell Absent (Absent)
[2020-04-08] MEDS ORDERED: Labetalol IV 5 MG/ML 20 ml VIAL IV PUSH PRN (17:48)
[2020-04-08] MEDS ORDERED: niCARdipine 0.1MG/ML IVPREMIX 20 MG/200 ML BAG IV SCH (19:00)
[2020-04-08] MEDS: Diclofenac 1% GEL (NF) 100 GM TUBE TOPICAL SCH (22:00)
[2020-04-08] MEDS: Latanoprost 0.005% 2.5 ml BTL BOTH EYES SCH (22:00)
[2020-04-08 23:19] LABS: ABS Basophils 0.1 10^3/ul (0-0.2); ABS Eosinophils 0.2 10^3/ul (0-0.6); ABS Lymphocytes 3.2 10^3/ul (1.0-4.8); ABS Monocytes 0.5 10^3/ul (0-0.8); ABS Neutrophils 4.9 10^3/ul (1.5-7.7); Eosinophil % 2.2 %; Hematocrit 39 % (42-52); Hemoglobin 12.8 g/dL (14.0-18.0); Lymphocyte % 35.7 %; Mean Corpuscular HGB Conc 33 g/dL (31-36); Mean Corpuscular Hemoglobin 28 pg (27-31); Mean Corpuscular Volume 83 fL (80-94); Mean Platelet Volume 7.8 fL (7.4-10.4); Nucleated Red Blood Cells % 0.2; Platelet Count 297 10^3/uL (150-450); Red Blood Count 4.67 10^6 /uL (4.18-5.48); Red Cell Distribution Width 16 % (10-15); White Blood Count 8.8 10^3/uL (3.5-10.8)
[2020-04-08 23:35] LABS: Albumin 3.4 g/dL (3.2-5.2); Albumin/Globulin Ratio 0.9 (1-3); BUN/Creatinine Ratio 12.3 (8-20); Calcium 8.8 mg/dL (8.6-10.3); EGFR African American 134.5 (>60); EGFR Non-African American 111.1 (>60); Globulin 3.8 g/dL (2-4); Potassium 3.5 mmol/L (3.5-5.0); Total Bilirubin 0.5 mg/dL (0.2-1.0); Total Protein 7.2 g/dL (6.4-8.9)
[2020-04-09] MEDS ORDERED: Iohexol 300 (CONTRAST) 10 ML SDV IV ONE (00:07)
[2020-04-09 02:39] LABS: C Reactive Protein 21.1 mg/L (<8.01)
[2020-04-09 03:10] LABS: Urine Appearance Clear; Urine Bilirubin Negative (Negative); Urine Blood Negative (Negative); Urine Color Straw; Urine Glucose Negative (Negative); Urine Ketones Negative (Negative); Urine Nitrite Negative (Negative); Urine Protein 1+(30 mg/dL) (Negative); Urine Urobilinogen Negative (Negative)
[2020-04-09 03:12] LABS: Urine Bacteria Absent (Absent); Urine Red Blood Cell Trace(0-2/hpf) (Absent); Urine White Blood Cell Absent (Absent)
[2020-04-09 03:15] LABS: Erythrocyte Sed Rate 70 mm/Hr (0-19)
[2020-04-09 05:42] LABS: ABS Eosinophils 0.1 10^3/ul (0-0.6); ABS Lymphocytes 2.4 10^3/ul (1.0-4.8); ABS Monocytes 0.5 10^3/ul (0-0.8); ABS Neutrophils 3.8 10^3/ul (1.5-7.7); Eosinophil % 2.1 %; Hematocrit 37 % (42-52); Hemoglobin 12.7 g/dL (14.0-18.0); Lymphocyte % 34.9 %; Mean Corpuscular HGB Conc 34 g/dL (31-36); Mean Corpuscular Hemoglobin 28 pg (27-31); Mean Corpuscular Volume 82 fL (80-94); Mean Platelet Volume 7.9 fL (7.4-10.4); Platelet Count 281 10^3/uL (150-450); Red Blood Count 4.53 10^6 /uL (4.18-5.48); Red Cell Distribution Width 16 % (10-15); White Blood Count 6.9 10^3/uL (3.5-10.8)
[2020-04-09 05:58] LABS: BUN/Creatinine Ratio 12.2 (8-20); Calcium 8.7 mg/dL (8.6-10.3); EGFR African American 132.4 (>60); EGFR Non-African American 109.4 (>60); Potassium 3.8 mmol/L (3.5-5.0)
[2020-04-09] MEDS: Diclofenac 1% GEL (NF) 100 GM TUBE TOPICAL SCH (09:15)
[2020-04-09] MEDS ORDERED: Lactated Ringers 1000 ml BAG 1,000 ML IV SCH ×2 (10:00→16:00)
[2020-04-09] MEDS ORDERED: fentaNYL 100 mcg/2 ml 50 MCG/ML VIAL ONE (13:36)
[2020-04-09] MEDS: Latanoprost 0.005% 2.5 ml BTL BOTH EYES SCH (20:32)
[2020-04-10] MEDS ORDERED: Lactated Ringers 1000 ml BAG 1,000 ML IV SCH (00:46)
[2020-04-10 06:37] LABS: Hematocrit 39 % (42-52); Hemoglobin 13.1 g/dL (14.0-18.0); Mean Corpuscular Volume 82 fL (80-94); White Blood Count 6.5 10^3/uL (3.5-10.8)
[2020-04-10 06:38] LABS: ABS Eosinophils 0.1 10^3/ul (0-0.6); ABS Lymphocytes 2.2 10^3/ul (1.0-4.8); ABS Monocytes 0.5 10^3/ul (0-0.8); ABS Neutrophils 3.5 10^3/ul (1.5-7.7); Mean Corpuscular HGB Conc 34 g/dL (31-36); Mean Corpuscular Hemoglobin 28 pg (27-31); Mean Platelet Volume 7.8 fL (7.4-10.4); Platelet Count 291 10^3/uL (150-450); Red Cell Distribution Width 15 % (10-15)
[2020-04-10 06:39] LABS: Lymphocyte % 34.3 %
[2020-04-10 07:51] LABS: Potassium 3.2 mmol/L (3.5-5.0)
[2020-04-10 07:52] LABS: BUN/Creatinine Ratio 15.9 (8-20); Calcium 7.2 mg/dL (8.6-10.3); EGFR African American 143.5 (>60); EGFR Non-African American 118.6 (>60)
[2020-04-10] MEDS ORDERED: KCL 20 MEQ/100 ML IVPREMIX 20 MEQ/100 ML BAG IV ONE (08:10)
[2020-04-10 09:00] LABS: Magnesium 1.5 mg/dL (1.9-2.7); Phosphorus 2.8 mg/dL (2.5-5.0)
[2020-04-10] MEDS ORDERED: Potassium Chlor 20 meq TAB.ER PO ONE (12:38)
[2020-04-10] MEDS: Latanoprost 0.005% 2.5 ml BTL BOTH EYES SCH (21:23)
[2020-04-11 04:20] LABS: ABS Basophils 0.1 10^3/ul (0-0.2); ABS Eosinophils 0.2 10^3/ul (0-0.6); ABS Lymphocytes 2.6 10^3/ul (1.0-4.8); ABS Monocytes 0.5 10^3/ul (0-0.8); ABS Neutrophils 4.1 10^3/ul (1.5-7.7); Eosinophil % 2.7 %; Hematocrit 39 % (42-52); Hemoglobin 12.9 g/dL (14.0-18.0); Lymphocyte % 34.4 %; Mean Corpuscular HGB Conc 33 g/dL (31-36); Mean Corpuscular Hemoglobin 28 pg (27-31); Mean Corpuscular Volume 83 fL (80-94); Mean Platelet Volume 7.9 fL (7.4-10.4); Nucleated Red Blood Cells % 0.1; Platelet Count 291 10^3/uL (150-450); Red Blood Count 4.67 10^6 /uL (4.18-5.48); Red Cell Distribution Width 15 % (10-15); White Blood Count 7.5 10^3/uL (3.5-10.8)
[2020-04-11 04:36] LABS: BUN/Creatinine Ratio 12.8 (8-20); Calcium 8.7 mg/dL (8.6-10.3); EGFR African American 124.6 (>60)
[2020-04-11] MEDS: Latanoprost 0.005% 2.5 ml BTL BOTH EYES SCH (20:00)
[2020-04-12 06:43] LABS: ABS Eosinophils 0.2 10^3/ul (0-0.6); ABS Lymphocytes 2.1 10^3/ul (1.0-4.8); ABS Monocytes 0.5 10^3/ul (0-0.8); ABS Neutrophils 4.3 10^3/ul (1.5-7.7); Eosinophil % 3.1 %; Hematocrit 40 % (42-52); Hemoglobin 13.4 g/dL (14.0-18.0); Lymphocyte % 29.3 %; Mean Corpuscular HGB Conc 34 g/dL (31-36); Mean Corpuscular Hemoglobin 28 pg (27-31); Mean Corpuscular Volume 82 fL (80-94); Platelet Count 315 10^3/uL (150-450); Red Blood Count 4.87 10^6 /uL (4.18-5.48); Red Cell Distribution Width 15 % (10-15); White Blood Count 7.2 10^3/uL (3.5-10.8)
[2020-04-12] MEDS: Latanoprost 0.005% 2.5 ml BTL BOTH EYES SCH (20:16)
[2020-04-13 07:34] LABS: ABS Eosinophils 0.3 10^3/ul (0-0.6); ABS Lymphocytes 2.3 10^3/ul (1.0-4.8); ABS Monocytes 0.5 10^3/ul (0-0.8); ABS Neutrophils 3.8 10^3/ul (1.5-7.7); Eosinophil % 3.7 %; Hematocrit 40 % (42-52); Hemoglobin 13.1 g/dL (14.0-18.0); Lymphocyte % 33.8 %; Mean Corpuscular HGB Conc 33 g/dL (31-36); Mean Corpuscular Hemoglobin 27 pg (27-31); Mean Corpuscular Volume 83 fL (80-94); Mean Platelet Volume 8.1 fL (7.4-10.4); Platelet Count 302 10^3/uL (150-450); Red Cell Distribution Width 15 % (10-15); White Blood Count 6.9 10^3/uL (3.5-10.8)
[2020-04-13 07:55] LABS: BUN/Creatinine Ratio 15.9 (8-20); Calcium 9.1 mg/dL (8.6-10.3); EGFR African American 117.6 (>60); EGFR Non-African American 97.2 (>60); Magnesium 1.8 mg/dL (1.9-2.7); Potassium 4.1 mmol/L (3.5-5.0)
[2020-04-13] MEDS ORDERED: Magnesium Sulfate 2 gm BAG 2 GM/50 ML BAG IVPB ONE (08:07)
[2020-04-13] MEDS: Latanoprost 0.005% 2.5 ml BTL BOTH EYES SCH (21:09)
[2020-04-14] MEDS: Latanoprost 0.005% 2.5 ml BTL BOTH EYES SCH (21:55)
[2020-04-15 07:44] LABS: ABS Basophils 0.1 10^3/ul (0-0.2); ABS Eosinophils 0.2 10^3/ul (0-0.6); ABS Lymphocytes 2.1 10^3/ul (1.0-4.8); ABS Monocytes 0.5 10^3/ul (0-0.8); ABS Neutrophils 4.5 10^3/ul (1.5-7.7); Eosinophil % 2.6 %; Hematocrit 39 % (42-52); Hemoglobin 13.2 g/dL (14.0-18.0); Lymphocyte % 28.4 %; Mean Corpuscular HGB Conc 34 g/dL (31-36); Mean Corpuscular Hemoglobin 28 pg (27-31); Mean Corpuscular Volume 83 fL (80-94); Mean Platelet Volume 7.7 fL (7.4-10.4); Nucleated Red Blood Cells % 0.1; Platelet Count 307 10^3/uL (150-450); Red Blood Count 4.76 10^6 /uL (4.18-5.48); Red Cell Distribution Width 15 % (10-15); White Blood Count 7.4 10^3/uL (3.5-10.8)
[2020-04-15 08:00] LABS: BUN/Creatinine Ratio 16.9 (8-20); Calcium 9.1 mg/dL (8.6-10.3); EGFR Non-African American 95.8 (>60); Magnesium 1.8 mg/dL (1.9-2.7)
[2020-04-15 08:06] LABS: Activated Partial Thrombo Time 27.8 seconds (26.0-38.0); INR 1.1 (0.82-1.09)
[2020-04-15] MEDS: Latanoprost 0.005% 2.5 ml BTL BOTH EYES SCH (22:24)
[2020-04-16] MEDS ORDERED: Buffered Lidocaine 1% SYRIN 1 ml INTRADERM ONE (06:00)
[2020-04-16] MEDS ORDERED: Lactated Ringers 1000 ml BAG 1,000 ML IV SCH (06:00)
[2020-04-16 06:18] LABS: ABS Eosinophils 0.2 10^3/ul (0-0.6); ABS Lymphocytes 2.2 10^3/ul (1.0-4.8); ABS Monocytes 0.5 10^3/ul (0-0.8); ABS Neutrophils 3.8 10^3/ul (1.5-7.7); Eosinophil % 2.8 %; Hematocrit 39 % (42-52); Hemoglobin 12.9 g/dL (14.0-18.0); Lymphocyte % 32.8 %; Mean Corpuscular HGB Conc 33 g/dL (31-36); Mean Corpuscular Hemoglobin 27 pg (27-31); Mean Corpuscular Volume 83 fL (80-94); Mean Platelet Volume 8.1 fL (7.4-10.4); Nucleated Red Blood Cells % 0.1; Platelet Count 299 10^3/uL (150-450); Red Blood Count 4.71 10^6 /uL (4.18-5.48); Red Cell Distribution Width 15 % (10-15); White Blood Count 6.7 10^3/uL (3.5-10.8)
[2020-04-16 06:40] LABS: BUN/Creatinine Ratio 16.5 (8-20); Calcium 8.5 mg/dL (8.6-10.3); EGFR African American 122.8 (>60); EGFR Non-African American 101.5 (>60); Potassium 3.8 mmol/L (3.5-5.0)
[2020-04-16 08:15] LABS: C Reactive Protein 20.17 mg/L (<8.01)
[2020-04-16] MEDS ORDERED: Lidocaine 2% PF 5 ML VIAL ONE ×2 (11:50→13:29)
[2020-04-16] MEDS ORDERED: Propofol 10 MG/ML 20 ML BTL ONE ×2 (11:50→12:18)
[2020-04-16] MEDS ORDERED: Rocuronium 50 mg VIAL 10 mg/ml 5 ml VIAL (50 mg) ONE ×2 (11:51→15:33)
[2020-04-16] MEDS ORDERED: fentaNYL 250 mcg/5 ml 50 MCG/ML 5 ml VIAL (250 MCG) ONE (11:51)
[2020-04-16] MEDS ORDERED: Remifentanil 2 MG VIAL ONE (12:01)
[2020-04-16] MEDS ORDERED: Midazolam 2 mg/2 ml VIAL 1 mg/ml 2 ml VIAL (2 mg) ONE (13:29)
[2020-04-16] MEDS ORDERED: Thrombin 5,000 UNITS 1 APPLIC KIT - topical use - TOPICAL ONE (13:30)
[2020-04-16] MEDS ORDERED: Gelfoam Sponge SIZE 100 SPONGE ONE (13:31)
[2020-04-16] MEDS ORDERED: Bacitracin INJECTION 50,000 UNITS ONE ×2 (13:31→16:02)
[2020-04-16] MEDS ORDERED: Lidocaine 1% w EPI 1:100,000 MDV 20 ML VIAL ONE (13:32)
[2020-04-16] MEDS ORDERED: Dexamethasone IV 4 MG/ML VIAL 1 ml VIAL ONE (14:59)
[2020-04-16] MEDS ORDERED: Vancomycin 1500 MG IV - x ONCE IVPB ONE (15:00)
[2020-04-16] MEDS ORDERED: Phenylephrine 40 mcg/mL 10mL (400mcg) SYRINGE ONE (16:38)
[2020-04-16] MEDS ORDERED: Acetaminophen IV 1 GM/100ML 100 ML ONE (16:38)
[2020-04-16] MEDS ORDERED: Naloxone 0.4 mg VIAL 0.4 mg/ml 1 ml VIAL IV PRN (17:18)
[2020-04-16] MEDS ORDERED: DiMENhydriNATE IV 50 mg/ml 1 ml VIAL IV PUSH PRN (17:18)
[2020-04-16] MEDS: fentaNYL 100 mcg/2 ml 50 MCG/ML VIAL IV PRN ×2 (17:24→17:31)
[2020-04-16] MEDS ORDERED: fentaNYL 100 mcg/2 ml 50 MCG/ML VIAL ONE (17:24)
[2020-04-16] MEDS ORDERED: Lactated Ringers 1000 ml BAG 1,000 ML IV ONE (20:06)
[2020-04-16] MEDS ORDERED: levETIRAcetam 1000MG IVPREMIX 1,000 MG/100 ML BAG IVPB ONE (21:00)
[2020-04-16] MEDS: niCARdipine 0.1MG/ML IVPREMIX 20 MG/200 ML BAG IV SCH (21:23)
[2020-04-16] MEDS: Morphine 2 MG/ML SYRINGE IV PRN (22:18)
[2020-04-16] MEDS: Latanoprost 0.005% 2.5 ml BTL BOTH EYES SCH (22:55)
[2020-04-17] MEDS: niCARdipine 0.1MG/ML IVPREMIX 20 MG/200 ML BAG IV SCH ×2 (02:56→07:26)
[2020-04-17] MEDS: Vancomycin 1500 MG IV IVPB SCH ×2 (02:56→13:55)
[2020-04-17 04:49] LABS: ABS Basophils 0.1 10^3/ul (0-0.2); ABS Lymphocytes 0.8 10^3/ul (1.0-4.8); ABS Monocytes 0.3 10^3/ul (0-0.8); ABS Neutrophils 7.8 10^3/ul (1.5-7.7); Hematocrit 37 % (42-52); Hemoglobin 12.7 g/dL (14.0-18.0); Lymphocyte % 8.9 %; Mean Corpuscular HGB Conc 34 g/dL (31-36); Mean Corpuscular Hemoglobin 28 pg (27-31); Mean Corpuscular Volume 82 fL (80-94); Mean Platelet Volume 7.6 fL (7.4-10.4); Platelet Count 302 10^3/uL (150-450); Red Blood Count 4.55 10^6 /uL (4.18-5.48); Red Cell Distribution Width 15 % (10-15); White Blood Count 8.9 10^3/uL (3.5-10.8)
[2020-04-17 05:07] LABS: BUN/Creatinine Ratio 17.4 (8-20); Calcium 8.2 mg/dL (8.6-10.3); EGFR African American 143.5 (>60); EGFR Non-African American 118.6 (>60); Potassium 4.2 mmol/L (3.5-5.0)
[2020-04-17] MEDS: levETIRAcetam IV 750 MG in NS 0.9% 100 ml BAG 100 ML IVPB SCH ×2 (08:26→10:07)
[2020-04-17] MEDS: Morphine 2 MG/ML SYRINGE IV PRN (08:27)
[2020-04-17] MEDS: HYDROcodone/ACETAMIN 5/325 mg TAB PO PRN (10:14)
[2020-04-17] MEDS ORDERED: Lactated Ringers 500 ml BAG 500 ML IV ONE (10:38)
[2020-04-17] MEDS: Latanoprost 0.005% 2.5 ml BTL BOTH EYES SCH (20:59)
[2020-04-18] MEDS: Vancomycin 1500 MG IV IVPB SCH (01:52)
[2020-04-18] MEDS: Morphine 2 MG/ML SYRINGE IV PRN (04:37)
[2020-04-18] MEDS: HYDROcodone/ACETAMIN 5/325 mg TAB PO PRN ×2 (06:02→17:44)
[2020-04-18] MEDS ORDERED: Senna TAB 8.6 mg TAB PO PRN (16:58)
[2020-04-18] MEDS: Latanoprost 0.005% 2.5 ml BTL BOTH EYES SCH (20:10)
[2020-04-19] MEDS: HYDROcodone/ACETAMIN 5/325 mg TAB PO PRN ×4 (04:31→20:32)
[2020-04-19 04:53] LABS: Hematocrit 40 % (42-52); Hemoglobin 13.2 g/dL (14.0-18.0); Mean Corpuscular HGB Conc 33 g/dL (31-36); Mean Corpuscular Hemoglobin 27 pg (27-31); Mean Corpuscular Volume 83 fL (80-94); Mean Platelet Volume 7.7 fL (7.4-10.4); Platelet Count 306 10^3/uL (150-450); Red Blood Count 4.84 10^6 /uL (4.18-5.48); Red Cell Distribution Width 16 % (10-15); White Blood Count 9.1 10^3/uL (3.5-10.8)
[2020-04-19 05:00] LABS: INR 0.97 (0.82-1.09)
[2020-04-19 05:09] LABS: BUN/Creatinine Ratio 18.7 (8-20); Calcium 8.6 mg/dL (8.6-10.3); EGFR African American 130.4 (>60); EGFR Non-African American 107.7 (>60); Magnesium 1.7 mg/dL (1.9-2.7); Potassium 3.6 mmol/L (3.5-5.0)
[2020-04-19] MEDS: Morphine 2 MG/ML SYRINGE IV PRN (05:14)
[2020-04-19] MEDS ORDERED: Magnesium Sulfate IV 3 GM in NS 0.9% 100 ml BAG 100 ML IVPB ONE (07:11)
[2020-04-19 08:50] LABS: Phosphorus 3.7 mg/dL (2.5-5.0)
[2020-04-19] MEDS ORDERED: Iohexol 300 (CONTRAST) 10 ML SDV IV ONE (11:57)
[2020-04-19] MEDS ORDERED: Ciprofloxacin 400mg IVPREMIX 400 MG/200 ML BAG IVPB SCH (13:00)
[2020-04-19] MEDS: Latanoprost 0.005% 2.5 ml BTL BOTH EYES SCH (20:32)
[2020-04-19] MEDS ORDERED: Morphine 2 MG/ML SYRINGE IV ONE (21:05)
[2020-04-20] MEDS ORDERED: Ciprofloxacin 400mg IVPREMIX 400 MG/200 ML BAG IVPB SCH (02:00)
[2020-04-20 04:45] LABS: Hematocrit 42 % (42-52); Hemoglobin 14.2 g/dL (14.0-18.0); Mean Corpuscular HGB Conc 34 g/dL (31-36); Mean Corpuscular Hemoglobin 28 pg (27-31); Mean Corpuscular Volume 82 fL (80-94); Mean Platelet Volume 7.7 fL (7.4-10.4); Platelet Count 332 10^3/uL (150-450); Red Blood Count 5.14 10^6 /uL (4.18-5.48); Red Cell Distribution Width 15 % (10-15); White Blood Count 10.8 10^3/uL (3.5-10.8)
[2020-04-20 04:59] LABS: BUN/Creatinine Ratio 16.3 (8-20); Potassium 3.6 mmol/L (3.5-5.0)
[2020-04-20] MEDS: Latanoprost 0.005% 2.5 ml BTL BOTH EYES SCH (21:00)
[2020-04-21] MEDS: Latanoprost 0.005% 2.5 ml BTL BOTH EYES SCH (20:18)
[2020-04-22] MEDS: Latanoprost 0.005% 2.5 ml BTL BOTH EYES SCH (22:03)
[2020-04-23 11:25] VITALS: BP 139/74
== END 2020-04-23 15:45 | disposition left against medical advice (07) | DRG 44 ==
LOC: ED 12:50 → ICU 16:07 → MEDTELE 04-11 21:09 → SSU 04-15 06:36 → ICU 04-16 18:16 → MEDTELE 04-20 16:00
PROVIDERS: ADMIT Nurse Practitioner Family; ATTEND Internal Medicine